=== PATIENT | female | born 1980 | race Caucasian/White ===

== ENCOUNTER → 2018-01-22 13:47 | Outpatient (CLI) | payer MEDICAID, SELFPAY ==
--- NOTE | 2018-01-22 13:53 | HPBI_ITS ---
MAMMOGRAPHY - BILATERAL SCREENING REASON FOR EXAM: Female, 37 years old. Routine annual screening examination. PERTINENT HISTORY: Grandmother with breast cancer. TECHNIQUE: Digital bilateral breast abe (3D mammographic acquisition) in the CC and MLO projections. 2-D mediolateral oblique (MLO) and craniocaudad (CC) views of both breasts were obtained. CAD: Full Field Digital Mammography with Computer Added Detection was performed. COMPARISON: None. Baseline examination. FINDINGS: Breast Composition: There are scattered areas of fibroglandular density. There are no dominant masses or suspicious calcifications. No other significant abnormalities are identified. HPBI/SCREENING MAMM (CAD), BILAT IMPRESSION: Negative screening mammogram. Yearly followup mammogram recommended. (A) ASSESSMENT CATEGORY: BIRADS Category 1: Negative. A letter regarding these results will be sent to the patient by the facility within 30 days. Approximately 10% of breast cancers are not detected by mammography. A normal mammogram should not delay biopsy of a clinically suspicious abnormality. [id number] Electronically Signed: Azam Tamez MD at 8:18 EDT Tel [phone], Service support ,
== END ==
PROVIDERS: Family Provider Family Medicine; PCP Family Medicine
DX: Z12.31 Encounter for screening mammogram for malignant neoplasm of breast (principal)
CPT/HCPCS: 77063; 77067

== ENCOUNTER 2018-03-05 22:32 | Observation (INO) | payer MEDICAID, SELFPAY ==
[2018-03-05 22:33] VITALS: BP 134/73; PULSE 84; RESP 17; TEMP 35.8; O2SAT 98; BMI 45.2
--- NOTE | 2018-03-05 22:38 | NURSING ---
SAMPLE BODY BUILDER CALLED FOR EKG, PULLED OLD EKG'S FOR
--- NOTE | 2018-03-05 22:39 | EKG12_ITS ---
Test Reason : CP Blood Pressure : / mmHG Vent. Rate : 084 BPM Atrial Rate : 084 BPM P-R Int : 152 ms QRS Dur : 100 ms QT Int : 388 ms P-R-T Axes : 014 -12 012 degrees QTc Int : 458 ms Normal sinus rhythm Confirmed by MARY SALINAS, DHEERAJ ([id number]), assignment desk editor USHA DESAI ([id number]) on 03/08/2018 12:48:50 PM Referred By: LIBSETH Confirmed By:DHEERAJ HERNANDEZ MD
--- NOTE | 2018-03-05 22:50 | RAD_ITS ---
STUDY: X-RAY CHEST REASON FOR EXAM: Female, 37 years old. Chest pain TECHNIQUE: Single AP portable view of the chest. COMPARISON: 09/04/2016. FINDINGS: The lungs are clear and expanded. There is no demonstrated pleural abnormality. Normal size heart. Normal mediastinum and macey. Normal visualized pulmonary arteries. Normal visualized aortic arch and descending thoracic aorta. Normal visualized thoracic spine. Normal visualized ribs, clavicles, and shoulders. There is no demonstrated abnormality of the visualized soft tissue structures of the upper abdomen. RAD/Chest 1 View (Portable) IMPRESSION: No acute cardiopulmonary disease. Electronically Signed: Harpal Chan DO at 23:31 EDT , Service support ,
--- NOTE | 2018-03-05 22:57 | ED.DCSUM_ITS ---
- ER Visit Summary Date of Service: 03/05/18 Chief Complaint: Chest pain History of Present Illness: The patient is a 37 F with history of hypertension and hyperlipidemia along with rlx-lycxebs-dnxixpqch diabetes presents with left- sided chest pain. Patient had recent breast reduction surgery at [facility]. This was done 3 weeks ago. Apparently, during the surgery, she had low blood pressure. After that, she had elevation of her cardiac enzymes. She is scheduled for an outpatient stress test. During that whole time, she had no significant chest pain. Tonight, she was watching TV, and she had a rather sudden onset squeezing across her left chest. It went to her neck and arm. She did not feel short of breath. She denies any fevers or chills. The pain does wax and wane. She states she has never really had pain like this before. She denies any pleuritic pain. She denies any dyspnea. Patient has had a stress test a few years ago, and states it was normal. She has no documented history of coronary vascular disease. Physical Examination: Vital signs reviewed General: Well-nourished, well-developed Head: Normocephalic, atraumatic Eyes: Pupils equal and reactive, extraocular muscles intact Neck, supple, no lymphadenopathy Heart: Regular rate and rhythm Respiratory: No distress, clear bilaterally Chest wall: Incisions are clean, dry, and intact. There is minimal erythema. There is no edema or cellulitis. Abdomen: Soft, nontender, nondistended, no peritoneal signs Back: Nontender Extremities: Nontender, no edema, no cords Skin: Normal color no rash Neuro: Alert and oriented, no focal or lateralizing deficits Test Results: [] Emergency Department Course and Treatment: The patient presents with chest pain. She did have recent bilateral breast reduction. When she was there, she did have elevated cardiac enzymes and was scheduled for an outpatient stress. Tonight, was the first time that she has had pain. Her incisions are clean, dry , and intact. Her EKG is unremarkable for acute ischemic change. Cardiac enzymes are normal. Pain was improved with fentanyl but then did return. The patient did have an elevated d-dimer and underwent CTA. I do not see definitive evidence of pulmonary embolus. With the patient's recent elevated cardiac enzymes, known cardiac risk factor, and intermittent pain I do feel that she will benefit from admission for cardiac risk stratification. Patient was discussed with the hospitalist. Treatment Plan: [] Disposition: Admission Impression: 1. Chest pain This note was generated with [employer] dictation software. It may contain incorrect words, spelling, and punctuation that were not noted in review of the chart prior to signing ED Disposition - Plan for ED Patient: Chief Complaint: Chest Pain Referrals: Francesco Davila MD [Primary Care Provider] -
[2018-03-05 23:18] LABS: Mean Platelet Vol. 11.2 fl (6.2-12.0)
[2018-03-05] MEDS: Aspirin 81 MG TAB.CHEW 324 MG PO (23:30)
[2018-03-05 23:39] LABS: D-Dimer Quantitative (DVT/PE) 1.06 FEU/ug/m (0.27-0.49)
--- NOTE | 2018-03-05 23:39 | ED.RN ---
LAB CALLED WITH CRITICAL LAB RESULTS. D DIMER .06. DR. BOB MADE AWARE.
[2018-03-05 23:44] VITALS: PULSE 77; RESP 12; O2SAT 97
[2018-03-05 23:44] LABS: Anion Gap 8 (5-15); BUN 10 mg/dL (7-18); BUN/Creat Ratio 12.1 RATIO (10-20); Calcium,Total 9.1 mg/dL (8.5-10.1); Chloride 100 mmol/L (98-107); Creatinine, Serum 0.82 mg/dL (0.55-1.02); EST Glomerular Filtration Rate 84 mL/min (>60); Est Glom Filt Rate - Afr Amer 101 mL/min (>60); Estimated Creatinine Clearance 100.07 ml/min; Glucose 216 mg/dL (74-106); Hematocrit 40.2 % (37-47); Hemoglobin 13.2 g/dl (12.0-15.0); Mean Corpuscular Volume 89.5 fL (81-99); POSITIVE COUNT NO; POSITIVE DIFFERENTIAL NO; POSITIVE MORPHOLOGY NO; Potassium 3.4 mmol/L (3.5-5.1); Red Blood Count 4.49 M/mm3 (4.2-5.4); Sodium Level 136 mmol/L (136-145); White Blood Count 11.2 K/mm3 (4.4-11.0)
[2018-03-05 23:45] LABS: Absolute Neutrophil Count 5.5 X10^3/uL (2.0-7.7); Basophil# 0.08 X10^3/uL; Basophil% 0.7 % (0-1); Eosinophil# 0.34 X10^3/uL; Lymphocyte % 41.1 % (19-41); Mean Corp Hgb Conc 32.8 g/gl (32-36); Mean Corpuscular Hgb 29.4 pg (27.0-32.0); Monocyte# 0.62 X10^3/uL; Monocyte% 5.5 % (0-10); Neutrophil # 5.49 X10^3/uL (2.7-7.7); Neutrophil % 49.2 % (47-70); Platelet Count 333 K/mm3 (150-450); RBC Distribution Width CV 12.9 % (11.6-14.6); RBC Distribution Width SD 41.1 fl (35.1-43.9)
[2018-03-05] MEDS: fentaNYL 100 MCG/2 ML Ampul 50 MCG IV (23:47)
[2018-03-05] MEDS: Ondansetron 4 MG/2 ML Vial IV (23:47)
[2018-03-06] VITALS (9 sets, daily range): BP systolic 103–119; BP diastolic 59–84; PULSE 75–91; RESP 14–22; TEMP 36.5–36.8; O2SAT 95–99; BMI 44.9
--- NOTE | 2018-03-06 00:33 | EKG12_ITS ---
Test Reason : REPEAT Blood Pressure : / mmHG Vent. Rate : 072 BPM Atrial Rate : 072 BPM P-R Int : 168 ms QRS Dur : 102 ms QT Int : 404 ms P-R-T Axes : 016 -15 -03 degrees QTc Int : 442 ms Normal sinus rhythm Leftward axis Poor R wave progression Confirmed by MARY SALINAS, DHEERAJ ([id number]), index editor USHA DESAI ([id number]) on 03/08/2018 12:49:44 PM Referred By: LISBETH Confirmed By:DHEERAJ HERNANDEZ MD
[2018-03-06] MEDS: Morphine 4 MG/ML Syringe IV (00:44)
--- NOTE | 2018-03-06 01:41 | PCM.HP.STD ---
Problem List (1) Diabetes Status: Chronic (2) Pulmonary hypertension Status: Chronic (3) MVP Status: Chronic (4) Hypertension Status: Chronic (5) Hyperlipidemia Status: Chronic (6) Asthma Status: Chronic (7) Chest pain Status: Acute Qualifiers: Chest pain type: unspecified Qualified Code(s): R07.9 - Chest pain, unspecified History of Present Illness Date of Admission: 03/06/18 Chief Complaint: chest pain The patient is a 37 year old female patient who presents to the ER with acute chest pain. She has a recent history of breast reduction surgery done at [place] a few weeks ago and she had an episode of hypotension perioperatively. She has a strong family history of CAD with a father diagnosed in his 20s with CAD. She is also an uncontrolled diabetic and overweight. The patient has been diagnosed in 2013 with pulmonary hypertension and had a negative heart cath four years ago. Her initial troponin was negative but she did get relief of her chest pain that radiated down her left arm and up her left neck after taking nitroglycerin. The onset of her pain was unprovoked while watching TV. She does have post operative pain as well but this she describes as distinctly different. She will be admitted for further cardiac workup. Past Medical History Past Medical History (Chronic Problems): Chronic Problems Diabetes (Chronic) Pulmonary hypertension (Chronic) MVP (Chronic) Hypertension (Chronic) Hyperlipidemia (Chronic) Asthma (Chronic) Allergies adhesive Allergy (Verified 03/05/18 22:32) Other PAPER TAPE ERODES SKIN ketorolac tromethamine [From Toradol] Allergy (Verified 03/05/18 22:32) Shortness of breath naproxen sodium [From Aleve] Allergy (Verified 03/05/18 22:32) Shortness of breath Penicillins Allergy (Verified 03/05/18 22:32) Rash Home Medications: Ambulatory Orders Medication Instructions Recorded Albuterol Inhaler [Ventolin Hfa] 1 - 2 puff INHALATION Q6H PRN PRN 10/04/13 Nadolol [Corgard (Beta Jazz)] 40 mg PO BID 02/17/15 Furosemide [Lasix] 40 mg PO DAILY PRN 06/07/15 Spironolactone [Aldactone] 50 mg PO DAILY PRN 07/30/15 Lorazepam [Ativan] 1 mg PO DAILY PRN PRN 10/23/16 Metformin(XR) [Glucophage Xr] 1,000 mg PO BID 09/04/16 Pioglitazone [Actos] 15 mg PO DAILY 09/04/16 busPIRone [Buspar] 15 mg PO TID 09/04/16 Omeprazole [Prilosec] 20 mg PO PRN PRN 01/17/17 buPROPion tablets [Wellbutrin] 75 mg PO BID 01/17/17 Ondansetron [Zofran] 8 mg PO Q8H PRN PRN #20 tablet 01/18/17 Zolpidem Tartrate [Ambien 5 mg PO QHS PRN PRN #14 tablet 01/18/17 (Generic)] Surgical History: - - Lipid cystectomy, appendectomy Smoking Status: Former smoker - *Family History Maternal History Items: No pertinent history Paternal History Items: Heart Disease Review of Systems Constitutional: Denies: Chills, Fever, Weight Change HEENT: Denies: Head Aches, Sinus Congestion, Sinus Drainage Cardiovascular: Reports: Chest Pain. Denies: Palpitations Respiratory: Denies: Cough, Shortness of breath at rest, Sputum production Gastrointestinal: Denies: Abdominal Pain, Nausea, Vomiting Genitourinary: Denies: Dysuria Musculoskeletal: Denies: Joint Pain, Joint Tenderness Skin: Denies: Rash, Wounds Neurological: Denies: Numbness, Tingling, Focal weakness Psychiatric: Denies: Anxiety, Depression, Homicidal Ideations, Suicidal Ideations Hematologic/ Lymphatic: Denies: Easy Bruising, Easy Bleeding VTE Information - Inpt Only VTE Present on Admission: No VTE Mechan Device Prophylaxis: None VTE Pharm Prophylaxis ordered?: Yes Patient Problems: Active and Suspected Problems Chest pain (Acute) - Physical Exam General: Alert, Oriented x3, Cooperative HEENT: Atraumatic, Normocephalic Neck: Supple, No JVD, Negative Carotid Bruits Lungs: Clear to auscultation, Normal air movement Cardiovascular: Regular rate, Normal S1, Normal S2, No murmurs Abdomen: Bowel Sounds Present, Soft, Non Tender, Obese Extremities: No edema, Capillary Refill Less than 3 Seconds Skin: No rashes, No breakdown Musculoskeletal: No Tenderness to Palpation of Joints or Extremities Neurological: Neuro grossly intact Psych/Mental Status: Normal Affect, Appropriate Vital Signs Temp Pulse Resp BP Pulse Ox 96.5 F L 77 14 103/84 H 97 03/05/18 22:33 03/06/18 01:32 03/06/18 01:32 03/06/18 01:32 03/06/18 01:32 Oxygen Flow Rate (L/min) 2 Oxygen Delivery Method Nasal Cannula Weight: 306 lb 3.553 oz Body Mass Index (BMI) 45.2 Finger Stick Blood Glucose 213 Laboratory Tests Past 24 Hrs 03/05/18 03/05/18 03/05/18 23:00 23:00 23:00 WBC 11.2 H RBC 4.49 Hgb 13.2 Hct 40.2 MCV 89.5 MCH 29.4 MCHC 32.8 RDW 12.9 RDW Differential 41.1 Plt Count 333 MPV 11.2 Immature Gran % (Auto) 0.500 Neut % (Auto) 49.2 Lymph % (Auto) 41.1 H [place] % (Auto) 5.5 Eos % (Auto) 3.0 Baso % (Auto) 0.7 Absolute Neuts (auto) 5.5 Absolute Lymphs (auto) 4.60 H Total Counted Not Reportable D-Dimer Quant (PE/DVT) 1.06 H* Sodium 136 Potassium 3.4 L Chloride 100 Carbon Dioxide 28.0 Anion Gap 8 BUN 10 Creatinine 0.82 Estim Creat Clear Calc 100.07 Est GFR (MDRD) Af Amer 101 Est GFR (MDRD) Non-Af 84 BUN/Creatinine Ratio 12.1 Glucose 216 H Calcium 9.1 Troponin I < 0.02 Assessment/Plan Active and Suspected Problems Chest pain (Acute) Chronic Problems Pulmonary hypertension (Chronic) MVP (Chronic) Hypertension (Chronic) Hyperlipidemia (Chronic) Asthma (Chronic) Plan -admit for observation to PCU -cycle cardiac enzymes - morphine, oxygen, nitro and aspirin per routine - nuclear exercise stress test in am - continue routine home medications for stable medical conditions- hold betablocker - LMWH for DVT prophylaxis - bmp in am Code Visit OBSV E&M: 21556 Initial observation care L2
[2018-03-06] MEDS: 0.9% NaCl Peripheral Flush Adult/Peds IV ×3 (03:24→11:38)
[2018-03-06] MEDS: Morphine 2 MG/ML Syringe IV ×3 (03:25→11:37)
--- NOTE | 2018-03-06 04:22 | EKG12_ITS ---
Test Reason : AM EKG Blood Pressure : / mmHG Vent. Rate : 078 BPM Atrial Rate : 078 BPM P-R Int : 178 ms QRS Dur : 090 ms QT Int : 394 ms P-R-T Axes : 020 -15 -04 degrees QTc Int : 449 ms Normal sinus rhythm Leftward axis Incomplete right bundle branch block Confirmed by MARY SALINAS, DHEERAJ ([id number]), newspaper editor managing USHA DESAI ([id number]) on 03/08/2018 1:22:37 PM Referred By: ANU Confirmed By:DHEERAJ HERNANDEZ MD
[2018-03-06] MEDS: Aspirin E.C. 325 MG Tablet PO (05:08)
[2018-03-06 06:55] LABS: Bedside Glucose 178 mg/dL (70-110)
[2018-03-06 07:32] LABS: Absolute Lymphocyte Count 4.42 X10^3/ul (0.83-4.51); Absolute Neutrophil Count 6.2 X10^3/uL (2.0-7.7); Basophil# 0.05 X10^3/uL; Basophil% 0.4 % (0-1); Eosinophil# 0.36 X10^3/uL; Hematocrit 41.1 % (37-47); Hemoglobin 13.3 g/dl (12.0-15.0); Lymphocyte # 4.42 X10^3/ul (4.0); Lymphocyte % 37.3 % (19-41); Mean Corp Hgb Conc 32.4 g/gl (32-36); Mean Corpuscular Hgb 29.2 pg (27.0-32.0); Mean Corpuscular Volume 90.1 fL (81-99); Mean Platelet Vol. 11.1 fl (6.2-12.0); Monocyte# 0.76 X10^3/uL; Monocyte% 6.4 % (0-10); Neutrophil # 6.21 X10^3/uL (2.7-7.7); Neutrophil % 52.6 % (47-70); POSITIVE COUNT NO; POSITIVE DIFFERENTIAL NO; POSITIVE MORPHOLOGY NO; Platelet Count 315 K/mm3 (150-450); RBC Distribution Width CV 13.1 % (11.6-14.6); Red Blood Count 4.56 M/mm3 (4.2-5.4); White Blood Count 11.8 K/mm3 (4.4-11.0)
[2018-03-06 07:36] LABS: Partial Thromboplast Time 28.6 Seconds (24.1-36.2)
[2018-03-06 07:54] LABS: ALB/GLOB Ratio 0.7 RATIO (0.9-2.4); AST(SGOT) 62 U/L (15-37); Alanine Aminotransfer ALT/SGPT 49 U/L (13-56); Albumin, Serum 3.5 g/dL (3.2-5.0); Alkaline Phosphatase 79 U/L (45-117); Anion Gap 10 (5-15); BUN 10 mg/dL (7-18); BUN/Creat Ratio 10.5 RATIO (10-20); Calcium,Total 9.1 mg/dL (8.5-10.1); Chloride 100 mmol/L (98-107); Cholesterol 128 mg/dL (200); Creatinine, Serum 0.95 mg/dL (0.55-1.02); EST Glomerular Filtration Rate 71 mL/min (>60); Est Glom Filt Rate - Afr Amer 86 mL/min (>60); Estimated Creatinine Clearance 86.38 ml/min; Globulin 4.7 g/dL (2.2-4.2); Glucose 166 mg/dL (74-106); High Density Lipoprotein 28 mg/dL; Potassium 4.1 mmol/L (3.5-5.1); Protein, Total 8.2 g/dL (6.4-8.2); Sodium Level 137 mmol/L (136-145); Triglycerides 330 mg/dL; Very Low Density Lipoprotein 66 mg/dL (5-40)
[2018-03-06 07:56] LABS: International Normalized Ratio 1.1; Prothrombin Time (Protime)PT. 14.1 SECONDS (11.7-14.9)
[2018-03-06] MEDS: Furosemide 40 MG Tablet PO (11:22)
[2018-03-06] MEDS: Spironolactone 50 MG Tablet PO (11:23)
[2018-03-06] MEDS: Enoxaparin 40 MG/0.4 ML Syringe SC (11:23)
[2018-03-06] MEDS: buPROPion 100 MG Tablet PO (11:24)
[2018-03-06] MEDS: LINAGLIPTIN 5 MG TABLET PO (11:24)
--- NOTE | 2018-03-06 11:30 | STRESSREP ---
Stress Test Report Date: 03/06/2018 Procedure: Exercise tolerance test/imaging study Indications: Chest pain Consent: Per the patient Procedure: The patient exercised on a Bon protocol for 6 minutes and 45 seconds completing Stage 2 and 45 seconds of Stage III achieving a peak heart rate of 169 bpm (91 % predicted maximal heart rate) with a peak blood pressure 158/88 mmHg and a peak MET capacity of 8 METs. The baseline ECG demonstrated normal sinus rhythm. The peak exercise ECG demonstrated somatic/motion artifact with no obvious ECG changes. There were no cardiac dysrhythmias pretest, during exercise, or recovery. The functional capacity was considered average. There was no complaint of chest discomfort during exercise or recovery. The examination was discontinued secondary to dyspnea and fatigue. Impression: 1. Technically adequate (percent predicted maximal heart rate greater than 85%) exercise tolerance test 2. Peak exercise ECG with somatic/motion artifact with no obvious ECG changes 3. There were no cardiac dysrhythmias pretest, during exercise, or recovery. 4. Nuclear images pending Myocardial perfusion imaging study: Technique: The patient was injected with 15 mCi of technetium 99m Cardiolite and subsequently rest SPECT Cardiolite nuclear imaging was obtained in the horizontal long, vertical long, and short axis views. The patient exercised on a Bon protocol for 6 minutes and 45 seconds completing Stage 2 and 45 seconds of Stage III achieving a peak heart rate of 169 bpm (91 % predicted maximal heart rate) with a peak blood pressure 158/88 mmHg and a peak MET capacity of 8 METs. The patient was injected with 44 mCi of technetium 99m Cardiolite and subsequently stress SPECT Cardiolite nuclear imaging was obtained in the horizontal long, vertical long, and short axis views. A gated Cardiolite study at peak stress was obtained. Interpretation: Rest and stress SPECT Cardiolite nuclear imaging status post realignment, normalization, and attenuation correction, demonstrates the appearance of relative uniform tracer uptake and myocardial perfusion appearing within normal limits. There is end systolic thickening and brightening. The gated Cardiolite study demonstrates myocardial thickening and inward wall motion. The reported LVEF is 70 %. Impression: 1. Rest and stress SPECT Cardiolite nuclear imaging demonstrate relative uniform tracer uptake and myocardial perfusion appearing within normal limits. 2. The gated Cardiolite study reports an LVEF of 70 %. This note was generated with [employer] software. It may contain incorrect words, spelling, and punctuation that were not noted in checking the note before signing.
--- NOTE | 2018-03-06 11:36 | STRESSREP_ITS ---
Stress Test Report Date: 03/06/2018 Procedure: Exercise tolerance test/imaging study Indications: Chest pain Consent: Per the patient Procedure: The patient exercised on a Bon protocol for 6 minutes and 45 seconds completing Stage 2 and 45 seconds of Stage III achieving a peak heart rate of 169 bpm (91 % predicted maximal heart rate) with a peak blood pressure 158/88 mmHg and a peak MET capacity of 8 METs. The baseline ECG demonstrated normal sinus rhythm. The peak exercise ECG demonstrated somatic/motion artifact with no obvious ECG changes. There were no cardiac dysrhythmias pretest, during exercise, or recovery. The functional capacity was considered average. There was no complaint of chest discomfort during exercise or recovery. The examination was discontinued secondary to dyspnea and fatigue. Impression: 1. Technically adequate (percent predicted maximal heart rate greater than 85% ) exercise tolerance test 2. Peak exercise ECG with somatic/motion artifact with no obvious ECG changes 3. There were no cardiac dysrhythmias pretest, during exercise, or recovery. 4. Nuclear images pending Myocardial perfusion imaging study: Technique: The patient was injected with 15 mCi of technetium 99m Cardiolite and subsequently rest SPECT Cardiolite nuclear imaging was obtained in the horizontal long, vertical long, and short axis views. The patient exercised on a Bon protocol for 6 minutes and 45 seconds completing Stage 2 and 45 seconds of Stage III achieving a peak heart rate of 169 bpm (91 % predicted maximal heart rate) with a peak blood pressure 158/88 mmHg and a peak MET capacity of 8 METs. The patient was injected with 44 mCi of technetium 99m Cardiolite and subsequently stress SPECT Cardiolite nuclear imaging was obtained in the horizontal long, vertical long, and short axis views. A gated Cardiolite study at peak stress was obtained. Interpretation: Rest and stress SPECT Cardiolite nuclear imaging status post realignment, normalization, and attenuation correction, demonstrates the appearance of relative uniform tracer uptake and myocardial perfusion appearing within normal limits. There is end systolic thickening and brightening. The gated Cardiolite study demonstrates myocardial thickening and inward wall motion. The reported LVEF is 70 %. Impression: 1. Rest and stress SPECT Cardiolite nuclear imaging demonstrate relative uniform tracer uptake and myocardial perfusion appearing within normal limits. 2. The gated Cardiolite study reports an LVEF of 70 %. This note was generated with [employer] software. It may contain incorrect words, spelling, and punctuation that were not noted in checking the note before signing.
[2018-03-06] MEDS: LORazepam 1 MG Tablet PO (11:38)
[2018-03-06 11:50] LABS: Bedside Glucose 211 mg/dL (70-110)
--- NOTE | 2018-03-06 11:53 | PCM.DC ---
- Discharge Diagnoses Current Active Problems: Current Active and Chronic Problems Diabetes (Chronic) Chest pain (Acute) You will use the following diet at home:: Calorie/Carbohydrate Controlled (specify 1200, 1400, etc) - 1800 codie / day, Cardiac Your food should be the consistency of: Regular Your liquids should be the consistency of: Regular/Thin Discharge Activity: Return to Normal Activity Allergies/Adverse Reactions: Allergies adhesive Allergy (Verified 03/05/18 22:32) Other PAPER TAPE ERODES SKIN ketorolac tromethamine [From Toradol] Allergy (Verified 03/05/18 22:32) Shortness of breath naproxen sodium [From Aleve] Allergy (Verified 03/05/18 22:32) Shortness of breath Penicillins Allergy (Verified 03/05/18 22:32) Rash Medications to take at Discharge Albuterol Inhaler [Ventolin Hfa] 1 - 2 puff INHALATION Q6H PRN PRN 10/04/13 Nadolol [Corgard (Beta Jazz)] 40 mg PO BID 02/17/15 Furosemide [Lasix] 40 mg PO DAILY 06/07/15 Spironolactone [Aldactone] 50 mg PO DAILY 07/30/15 Lorazepam [Ativan] 1 mg PO DAILY PRN PRN 09/04/16 Metformin(XR) [Glucophage Xr] 1,000 mg PO BID 09/04/16 buPROPion tablets [Wellbutrin tablets] 100 mg PO BID 01/17/17 Alogliptin Benzoate [Alogliptin] 25 mg PO DAILY 03/06/18 [place] 5-325 Tablet 03/06/18 Primary Care Physician: Francesco Davila MD [Primary Care Provider] - Please follow up with your Primary Care Physician in: 1-2 weeks Please Follow Up With: [facility] When: 1-2 weeks Please Follow Up With: Your Surgeon When: As directed Proposed Discharge Date: 03/06/18
--- NOTE | 2018-03-06 16:38 | PCM.DC.SUM ---
<David Dubon - Last Filed: 03/06/18 16:38> Discharge Date and Diagnosis Date of Admission: 03/06/18 Date of Discharge: 03/06/18 - Primary Discharge Diagnosis Chest pain-musculoskeletal Diabetes Morbid obesity Mitral valve prolapse Hypertension Hyperlipidemia Asthma - Secondary Discharge Diagnosis Chronic Problems Diabetes (Chronic) Pulmonary hypertension (Chronic) MVP (Chronic) Hypertension (Chronic) Hyperlipidemia (Chronic) Asthma (Chronic) Hospital Course and Treatment Imaging Results: CT/CTA Chest W/WO Contrast IMPRESSION: Normal CTA chest examination, without a demonstrated pulmonary embolism or arterial dissection. Stress test: Impression: 1. Technically adequate (percent predicted maximal heart rate greater than 85%) exercise tolerance test 2. Peak exercise ECG with somatic/motion artifact with no obvious ECG changes 3. There were no cardiac dysrhythmias pretest, during exercise, or recovery. 4. Nuclear images pending RAD/Chest 1 View (Portable) IMPRESSION: No acute cardiopulmonary disease. Operations: None Procedures: Stress test Summary of Care Provided: Physical exam on day of discharge: General: Resting comfortably NAD Psych: A/Ox3 normal affect HEENT: PEARRLA AT NC Neck: Supple NT CV: RRR no m/t/r/g/h chest is tender to light palpation anteriorly bilaterally. Resp: CTA Abd: [id number] Soft NT no guarding or rigidity Ext: DP2+= no edema Skin: W/D normal turgor Lymph/Heme: No active bleeding or adenopathy Neuro: CN2-12 intact Hospital course: The patient is a 37 year old F with a history of mitral valve prolapse, hypertension, hyperlipidemia, recent breast reduction surgery at [facility] about 2 weeks ago who presented to the emergency room with chest pain. She reported that she had a troponin elevation and low blood pressure after her surgery and was supposed to have an outpatient stress test however she developed chest pain so she presented to the emergency room for evaluation. She had a negative troponin negative EKG, elevated d-dimer with a negative CTA, negative chest x-ray. She described as an anterior chest wall tenderness that was worse with palpation. She underwent a stress test the following day which was negative. Her telemetry was negative a repeat EKG was also negative, and her troponins remained negative. Her pain was felt to be of musculoskeletal origin likely secondary to her recent surgery. There are no changes made at this time and she was discharged home in stable condition. I advised her to follow-up with her surgeon, with her extension educator that she saw at [facility], and with her primary care physician. This patient was seen by David Dubon PA-C under the supervision of Doctor Maral. [] Discharge Diet: Low fat/ Low Cholesterol, 1800 Calorie Control Diet, 2000 mg Sodium Diet Discharge Activity: Return to Normal Activity Home Medications: Medications to take at Discharge Albuterol Inhaler [Ventolin Hfa] 1 - 2 puff INHALATION Q6H PRN PRN 10/04/13 Nadolol [Corgard (Beta Jazz)] 40 mg PO BID 02/17/15 Furosemide [Lasix] 40 mg PO DAILY 06/07/15 Spironolactone [Aldactone] 50 mg PO DAILY 07/30/15 Lorazepam [Ativan] 1 mg PO DAILY PRN PRN 09/04/16 Metformin(XR) [Glucophage Xr] 1,000 mg PO BID 09/04/16 buPROPion tablets [Wellbutrin tablets] 100 mg PO BID 01/17/17 Alogliptin Benzoate [Alogliptin] 25 mg PO DAILY 03/06/18 [place] 5-325 Tablet 03/06/18 Primary Care Physician: Francesco Davila MD [Primary Care Provider] - Please follow up with your Primary Care Physician in: 1-2 weeks Please Follow Up With: [facility] When: 1-2 weeks Please Follow Up With: Your Surgeon When: As directed Disposition: Home Minutes spent on discharge:: 35 Patient Condition:: Stable Medical Necessity - Tobacco Use Smoking Status: Former smoker Meaningful Use Info Meaningful Use Diagnoses (Choose all that apply): None applicable <Jimi Alicia - Last Filed: 03/06/18 16:52> Discharge Date and Diagnosis - Secondary Discharge Diagnosis Chronic Problems Diabetes (Chronic) Pulmonary hypertension (Chronic) MVP (Chronic) Hypertension (Chronic) Hyperlipidemia (Chronic) Asthma (Chronic) Hospital Course and Treatment Summary of Care Provided: The patient is a 37 year old F with past medical history significant for morbid obesity with BMI of 44.9 with recent breast reduction surgery 2 weeks prior to admission who presented with chest pain. Patient was found to have elevated d-dimer underwent CTA of the chest which is negative for PE subsequently placed in a monitored bed did rule out VA with serial cardiac enzymes subsequently underwent a nuclear stress test which is negative for stress-induced ischemia Patient was seen and examined on the day of discharge. Was also discussed with David larios with his documentation above view patient home going instructions as well as discharge medications. Time spent on discharge; 45 minutes. Code Visit OBSV E&M: 69911 Observation care discharge
--- NOTE | 2018-03-06 16:42 | DS.PCM_ITS ---
<David Dubon - Last Filed: 03/06/18 16:38> Discharge Date and Diagnosis Date of Admission: 03/06/18 Date of Discharge: 03/06/18 - Primary Discharge Diagnosis Chest pain-musculoskeletal Diabetes Morbid obesity Mitral valve prolapse Hypertension Hyperlipidemia Asthma - Secondary Discharge Diagnosis Chronic Problems Diabetes (Chronic) Pulmonary hypertension (Chronic) MVP (Chronic) Hypertension (Chronic) Hyperlipidemia (Chronic) Asthma (Chronic) Hospital Course and Treatment Imaging Results: CT/CTA Chest W/WO Contrast IMPRESSION: Normal CTA chest examination, without a demonstrated pulmonary embolism or arterial dissection. Stress test: Impression: 1. Technically adequate (percent predicted maximal heart rate greater than 85% ) exercise tolerance test 2. Peak exercise ECG with somatic/motion artifact with no obvious ECG changes 3. There were no cardiac dysrhythmias pretest, during exercise, or recovery. 4. Nuclear images pending RAD/Chest 1 View (Portable) IMPRESSION: No acute cardiopulmonary disease. Operations: None Procedures: Stress test Summary of Care Provided: Physical exam on day of discharge: General: Resting comfortably NAD Psych: A/Ox3 normal affect HEENT: PEARRLA AT NC Neck: Supple NT CV: RRR no m/t/r/g/h chest is tender to light palpation anteriorly bilaterally. Resp: CTA Abd: [id number] Soft NT no guarding or rigidity Ext: DP2+= no edema Skin: W/D normal turgor Lymph/Heme: No active bleeding or adenopathy Neuro: CN2-12 intact Hospital course: The patient is a 37 year old F with a history of mitral valve prolapse, hypertension, hyperlipidemia, recent breast reduction surgery at [facility] about 2 weeks ago who presented to the emergency room with chest pain. She reported that she had a troponin elevation and low blood pressure after her surgery and was supposed to have an outpatient stress test however she developed chest pain so she presented to the emergency room for evaluation. She had a negative troponin negative EKG, elevated d-dimer with a negative CTA, negative chest x-ray. She described as an anterior chest wall tenderness that was worse with palpation. She underwent a stress test the following day which was negative. Her telemetry was negative a repeat EKG was also negative, and her troponins remained negative. Her pain was felt to be of musculoskeletal origin likely secondary to her recent surgery. There are no changes made at this time and she was discharged home in stable condition. I advised her to follow-up with her surgeon, with her potato bucker that she saw at [facility], and with her primary care physician. This patient was seen by David Dubon PA-C under the supervision of Doctor Maral. [] Discharge Diet: Low fat/ Low Cholesterol, 1800 Calorie Control Diet, 2000 mg Sodium Diet Discharge Activity: Return to Normal Activity Home Medications: Medications to take at Discharge Albuterol Inhaler [Ventolin Hfa] 1 - 2 puff INHALATION Q6H PRN PRN 10/04/13 Nadolol [Corgard (Beta Jazz)] 40 mg PO BID 02/17/15 Furosemide [Lasix] 40 mg PO DAILY 06/07/15 Spironolactone [Aldactone] 50 mg PO DAILY 07/30/15 Lorazepam [Ativan] 1 mg PO DAILY PRN PRN 09/04/16 Metformin(XR) [Glucophage Xr] 1,000 mg PO BID 09/04/16 buPROPion tablets [Wellbutrin tablets] 100 mg PO BID 01/17/17 Alogliptin Benzoate [Alogliptin] 25 mg PO DAILY 03/06/18 [place] 5-325 Tablet 03/06/18 Primary Care Physician: Francesco Davila MD [Primary Care Provider] - Please follow up with your Primary Care Physician in: 1-2 weeks Please Follow Up With: [facility] When: 1-2 weeks Please Follow Up With: Your Surgeon When: As directed Disposition: Home Minutes spent on discharge:: 35 Patient Condition:: Stable Medical Necessity - Tobacco Use Smoking Status: Former smoker Meaningful Use Info Meaningful Use Diagnoses (Choose all that apply): None applicable <Jimi Alicia - Last Filed: 03/06/18 16:52> Discharge Date and Diagnosis - Secondary Discharge Diagnosis Chronic Problems Diabetes (Chronic) Pulmonary hypertension (Chronic) MVP (Chronic) Hypertension (Chronic) Hyperlipidemia (Chronic) Asthma (Chronic) Hospital Course and Treatment Summary of Care Provided: The patient is a 37 year old F with past medical history significant for morbid obesity with BMI of 44.9 with recent breast reduction surgery 2 weeks prior to admission who presented with chest pain. Patient was found to have elevated d- dimer underwent CTA of the chest which is negative for PE subsequently placed in a monitored bed did rule out SC with serial cardiac enzymes subsequently underwent a nuclear stress test which is negative for stress-induced ischemia Patient was seen and examined on the day of discharge. Was also discussed with David larios with his documentation above view patient home going instructions as well as discharge medications. Time spent on discharge; 45 minutes. Code Visit OBSV E&M: 33834 Observation care discharge
--- NOTE | 2018-03-06 23:39 | CT_ITS ---
STUDY: CTA CHEST REASON FOR EXAM: Female, 37 years old. Chest pain. Dizziness. RADIATION DOSAGE (If Supplied By Facility): CTDIvol = ( 22.54 ) mGy, DLP = ( 775.25 ) mGycm TECHNIQUE: The examination was performed with the intravenous administration of 100ML ml of Isovue 370 contrast material. Post-processing of the angiographic images was performed, with multiplanar reformation and 3D reconstruction. Individualized dose optimization techniques were used for this CT. COMPARISON: None. FINDINGS: Normal enhancement of the main pulmonary artery and right and left pulmonary arteries. Normal enhancement of the bilateral peripheral pulmonary arteries. There is no demonstrated pulmonary embolism. Normal thoracic aorta and visualized great vessels. There is no demonstrated aortic dissection. Normal heart and pericardium. Normal mediastinum. Normal hilar regions. Normal visualized trachea and bronchi. The lungs are well expanded. Normal pulmonary parenchyma. Normal pleura. Normal chest wall structures. Normal osseous structures. Normal visualized upper abdomen. CT/CTA Chest W/WO Contrast IMPRESSION: Normal CTA chest examination, without a demonstrated pulmonary embolism or arterial dissection. Electronically Signed: Cassi Marc MD at 1:11 EDT Tel , Service support ,
== END 2018-03-06 11:53 | disposition home or self-care (01) ==
LOC: ED 23:12 → PCU 03-06 02:04
PROVIDERS: Admitting Provider Family Medicine; Emergency Provider Emergency Medicine; Family Provider Family Medicine; PCP Family Medicine; Visit Provider Internal Medicine
DX: R07.89 Other chest pain (principal); E11.9 Type 2 diabetes mellitus without complications; I10 Essential (primary) hypertension; E78.5 Hyperlipidemia, unspecified; I27.20 Pulmonary hypertension, unspecified; J45.909 Unspecified asthma, uncomplicated; E11.65 Type 2 diabetes mellitus with hyperglycemia; Z79.899 Other long term (current) drug therapy; Z79.84 Long term (current) use of oral hypoglycemic drugs; Z87.891 Personal history of nicotine dependence; E66.01 Morbid (severe) obesity due to excess calories; Z68.41 Body mass index [BMI] 40.0-44.9, adult; Z71.3 Dietary counseling and surveillance
CPT/HCPCS: 36415; 71045; 71275; 78452; 80048; 80053; 80061; 82962; 84443; 84484; 85025; 85379; 85610; 85730; 93005; 93017; 96372; 96374; 96375; 96376; 99218; 99285; A9500; Q9967; A4216; G0378; J2405

== ENCOUNTER → 2018-07-05 13:25 | Outpatient (CLI) | payer MEDICAID, SELFPAY | PROVIDERS: Family Provider Family Medicine; PCP Family Medicine; Visit Provider Orthopaedic Surgery | DX: M17.11 Unilateral primary osteoarthritis, right knee (principal) | CPT/HCPCS: 73564 ==

== ENCOUNTER 2019-01-03 18:19 | Emergency (ER) | payer MEDICAID, SELFPAY ==
[2019-01-03 18:19] VITALS: BP 106/91; PULSE 94; RESP 18; TEMP 36.6; O2SAT 93; BMI 42.0
[2019-01-03 20:16] VITALS: BP 144/98; PULSE 90; RESP 16; O2SAT 96
[2019-01-03 20:21] LABS: Red Blood Cells-Urine 0 SEEN /hpf (0-5)
[2019-01-03 20:23] LABS: Color, Urine Yellow (Yellow); Glucose, Dipstick 250 mg/dl (Normal); Ketone-Dipstick 5 mg/dl (Negative); Leukocyte Esterase-Dipstick 100 /ul (Negative); Nitrite-Dipstick Negative (Negative); Occult Blood-Urine 10 /ul (Negative); Protein-Dipstick 100 mg/dl (Negative); Urine Bilirubin Dipstick Negative (Negative); Urine Clarity Sl. Cloudy (Clear); Urine Urobilinogen Normal (Normal)
[2019-01-03 20:31] LABS: White Blood Cells 0-5 SEEN /hpf (0-5)
[2019-01-03 20:32] LABS: Bacteria 1+ /hpf (None Seen); Hyaline Cast 10-25 SEEN /lpf (0-5); Squamous Epithelial Cells - UA 0-5 SEEN /hpf (5-10)
[2019-01-03 20:33] LABS: Mucous, Urine 1+ /hpf (<or=2+)
[2019-01-03 20:46] LABS: Absolute Lymphocyte Count 3.93 X10^3/ul (0.83-4.51); Absolute Neutrophil Count 6.1 X10^3/uL (2.0-7.7); Basophil# 0.04 X10^3/uL; Basophil% 0.4 % (0-1); Eosinophil# 0.09 X10^3/uL; Eosinophils% 0.8 % (0-5); Hematocrit 49.9 % (37-47); Hemoglobin 16.9 g/dl (12.0-15.0); Lymphocyte # 3.93 X10^3/ul (4.0); Lymphocyte % 35.6 % (19-41); Mean Corp Hgb Conc 33.9 g/gl (32-36); Mean Corpuscular Hgb 30.6 pg (27.0-32.0); Mean Corpuscular Volume 90.4 fL (81-99); Mean Platelet Vol. 12.3 fl (6.2-12.0); Monocyte# 0.86 X10^3/uL; Monocyte% 7.8 % (0-10); Neutrophil # 6.08 X10^3/uL (2.7-7.7); POSITIVE COUNT NO; POSITIVE DIFFERENTIAL NO; POSITIVE MORPHOLOGY NO; Platelet Count 266 K/mm3 (150-450); RBC Distribution Width CV 12.6 % (11.6-14.6); RBC Distribution Width SD 41.3 fl (35.1-43.9); Red Blood Count 5.52 M/mm3 (4.2-5.4)
[2019-01-03 20:49] LABS: Anion Gap 12 (5-15); BUN 13 mg/dL (7-18); BUN/Creat Ratio 14.7 RATIO (10-20); Calcium,Total 8.8 mg/dL (8.5-10.1); Chloride 89 mmol/L (98-107); Creatinine, Serum 0.88 mg/dL (0.55-1.02); EST Glomerular Filtration Rate 77 mL/min (>60); Est Glom Filt Rate - Afr Amer 93 mL/min (>60); Estimated Creatinine Clearance 92.36 ml/min; Glucose 353 mg/dL (74-106); Potassium 3.4 mmol/L (3.5-5.1); Sodium Level 133 mmol/L (136-145)
[2019-01-03 20:53] LABS: Pregnancy, Serum, hCG Quali. NEGATIVE Negative (0-9 Nonpreg)
--- NOTE | 2019-01-03 21:10 | ED.VISSUMM ---
- ER Visit Summary Date of Service: 01/03/19 Chief Complaint: Abdominal pain History of Present Illness: The patient is a 38 F who presents with abdominal pain that began yesterday. Patient describes the pain as sharp. Patient states pain is over the epigastric area. Patient states pain does radiate into her back. Patient admits to some nausea but denies any vomiting. Patient denies any diarrhea, melena, or hematochezia. Patient denies any dysuria or hematuria. Patient denies any fevers or chills. Physical Examination: Vital signs are stable. Patient is afebrile. Patient is in no acute distress. Oral mucosa is pink and moist. Neck is supple. Trachea is midline. There is no JVD noted. Heart was regular rate and rhythm. Lungs are clear and equal bilaterally. Abdomen is soft. Bowel sounds are normal. There is epigastric tenderness. There is no rebound or guarding noted. Cranial nerves II through XII are intact. There are no focal motor or sensory deficits noted. The remaining physical exam is within normal limits. Test Results: CBC was normal. Basic metabolic profile showed an elevated glucose of 353. Patient is diabetic. Sodium was 133, potassium was 3.4, and chloride was 89. Urinalysis does not show any evidence of urinary tract infection. Hepatic profile and lipase were obtained and were normal. Emergency Department Course and Treatment: Patient was given a prescription for Prilosec. Patient was instructed to follow-up with her primary care physician in 5-7 days. Patient understood and was agreeable with the plan. All questions were answered. Disposition: Discharge home Impression: Abdominal pain This note was generated with [employer] dictation software. It may contain incorrect words, spelling, and punctuation that were not noted in review of the chart prior to signing ED Disposition - Plan for ED Patient: Disposition: Home or Assisted Living Diagnosis: Epigastric abdominal pain Instructions: ED Abdominal Pain Unkn Cause Prescriptions: Omeprazole [Prilosec] 20 mg PO DAILY #30 cap Referrals: Francesco Davila MD [Primary Care Provider] -
[2019-01-03 21:30] LABS: AST(SGOT) 80 U/L (15-37); Alanine Aminotransfer ALT/SGPT 81 U/L (13-56); Albumin, Serum 3.7 g/dL (3.2-5.0); Alkaline Phosphatase 112 U/L (45-117); Bilirubin, Direct 0.09 mg/dL (0.00-0.30); Globulin 4.8 g/dL (2.2-4.2); Lipase 226 U/L (73-393); Protein, Total 8.5 g/dL (6.4-8.2)
[2019-01-03 23:09] VITALS: RESP 16
--- NOTE | 2019-01-03 23:09 | ED.RN ---
UPON D/C PATIENT, PT EXPRESSED CONCERN FOR HER CARE HERE. THIS RN DISCUSSED HER CONCERNS WITH THE PATIENT AND HER MOTHER. THEY STATED THEY DID NOT WANT THE ED MANAGERS PHONE NUMBER TO DISCUSS THEIR CONCERNS REGARDING A PHYSICIAN MATTER BUT ASKED THAT I PASS ALONG THEIR EXPERIENCE IN THE ED TONIGHT TO THE DOOR REPAIRER BUS. PT ENCOURAGED TO RETURN TO THE ED WITH WORSENING SYMPTOMS. THIS RN TO EMAIL SENIOR ENTERPRISE ARCHITECT THIS SHIFT.
== END 2019-01-03 23:14 | disposition home or self-care (01) ==
PROVIDERS: Emergency Provider Emergency Medicine; Family Provider Family Medicine; PCP Family Medicine
DX: R10.13 Epigastric pain (principal); E11.9 Type 2 diabetes mellitus without complications; I27.20 Pulmonary hypertension, unspecified; Z79.84 Long term (current) use of oral hypoglycemic drugs; Z79.899 Other long term (current) drug therapy
CPT/HCPCS: 80048; 80076; 81001; 83690; 84703; 85025; 99283; A4216

== ENCOUNTER 2019-01-08 16:01 | Emergency (ER) | payer MEDICAID, SELFPAY ==
[2019-01-08 16:02] VITALS: BP 128/98; PULSE 127; RESP 16; TEMP 36.4; O2SAT 97; BMI 42.5
--- NOTE | 2019-01-08 16:52 | ED.DCSUM_ITS ---
History of Present Illness Chief Complaint: Abd Pain Detail of Chief Complaint: Bilateral midabdomen described as sharp Informant: Patient Onset: Days Context: Gradual Onset Timing: Continuous Quality: Sharp Location: Bilateral Current Severity: Mild Maximum Severity: Moderate Worsened by: Nothing Relieved by: Nothing Associated Symptoms: Nausea and vomiting today after brushing teeth Narrative: Patient is a 38-year-old woman history of polycystic ovarian syndrome status post appendectomy, cholecystectomy and hysterectomy who presents with bilateral mid abdominal pain described as sharp. There was associated nausea and vomiting today after brushing her teeth. She does admit to gagging. There is a family history of lupus. She has had a rash on her face that apparently no one knows the identity of and states it has never been biopsied. She was seen by her PCP and sent into the emergency room and seen last . She was seen by nurse practitioner today and sent to the emergency department. No call was made prior to patient's arrival. She denies fever, chills night sweats. She denies any ocular, visual auditory symptoms. She denies trouble with speech or swallowing. She denies cardiac respiratory symptoms. She states her abdomen is growing in size. She reports a 15 pound weight gain over the last month. She states her doctor increased her Lasix. She has not been on prednisone in some time. She denies any urologic symptoms. She denies trauma or rash. Past Medical History - Allergies and Home Meds Allergies/Adverse Reactions: Allergies adhesive Allergy (Verified 01/08/19 16:04) Other PAPER TAPE ERODES SKIN ketorolac tromethamine [From Toradol] Allergy (Verified 01/08/19 16:04) Shortness of breath naproxen sodium [From Aleve] Allergy (Verified 01/08/19 16:04) Shortness of breath Penicillins Allergy (Verified 01/08/19 16:04) Rash Primary Care Physician: Francesco Davila MD [Primary Care Provider] - Past Medical History: - - Polycystic ovarian syndrome Surgical History: appendectomy, cholecystectomy, hysterectomy, - - Lipid cystectomy, appendectomy Lives: With Family Smoking Status: Former smoker Drugs: None - Family History Maternal Family History: Reports: No pertinent history Paternal Family History: Reports: Heart Disease Review of Systems General: Denies: Chills, Fever, Sweats, Weight loss Eyes: Denies: Visual changes - bilaterally, Blurred Vision - bilaterally, Dipl opia ENT: Denies: Bilateral ear pain, Rhinorrhea, Sore throat Cardiovascular: Denies: Chest pain, Palpitations Respiratory: Denies: Dyspnea, Cough, Dyspnea on exertion Gastrointestinal: Reports: Abdominal pain, Nausea, Vomiting. Denies: Diarrhea, Constipation, Melena, Hematochezia Genitourinary: Denies: Dysuria, Hematuria, Frequency Musculoskeletal: Reports: Myalgias, Arthralgias - She denies joint swelling.. Denies: Back pain, Extremity Pain Skin: Denies: Rash, Wounds Neurological: Denies: Headache, Weakness, Numbness Endocrine: Denies: Polyuria, Polydipsia, Cold intolerance Hematologic: Denies: Easy bruising Allergy: Denies: Uticaria Physical Exam Vital Signs/Narrative: Vital Signs Temp Pulse Resp BP Pulse Ox 01/08/19 16:02 97.5 F L 127 H 16 128/98 H 97 General: Well nourished, Well developed, Obese Head: Normocephalic, Atraumatic Eyes: Perrl, EOMI. Negative for: Pale conjunctiva, Scleral icterus ENT: Moist mucous membranes, No rhinorrhea, TM's clear Neck: Supple, Nontender, No lymphadenopathy, No JVD Cardiovascular: Regular rate, Regular rhythm, No murmurs, Normal S1, Normal S2, Tachycardia Respiratory: No distress, CTA bilaterally, Chest nontender Abdomen: Soft, Nondistended, Normal bowel sounds, No masses, Ventral hernia, Inguinal hernia, Umbilical hernia. Negative for: Nontender Rectal: Deferred Back: Nontender, Normal Inspection. Negative for: CVA tenderness Extremities: Nontender, No edema. Negative for: Calf Tenderness Skin: Normal color, No rash, Rash Neurological: Normal Sensation - Nonblanching erythematous facial rash Psychological: Depressed Diagnostic/Tx/Re-eval CBC is remarkable for a white count of 11.2 thousand with normal differential. Hemoglobin is elevated compared to yesterday at 17.2. Sodium is 134, potassium is 3.0 and blood sugar is 343. Urine reveals glucosuria and ketones. The CO2 and anion gap were normal on the basic metabolic panel. Patient reports no improvement with Bentyl. - Medical Decision Making Patient with vague abdominal symptoms and exam that is benign. Patient had pain with depression of her skin. Skin was depressed at most 0.5 cm. There was no peritoneal findings or voluntary or involuntary guarding. Since patient is a return visit will repeat blood work and proceed from there. Patient was informed of her lab results. She was informed that the cause of her pain is unknown. She was informed based on history and physical her exam does not indicate anything serious. She was informed my purpose and role is to make sure she does not have anything serious or require surgery. Based on history physical and laboratory results compared to yesterday no further testing is needed. Especially since patient has pain with minimal depression of her skin. She was informed that 50% of patients who come to the emergency department the etiology of the pain is unknown. She was instructed to follow-up with her primary care physician. ED Disposition - Plan for ED Patient: Disposition: Home or Assisted Living Diagnosis: Bilateral abdominal pain unknown etiolog, Hyperglycemia due to type 2 diabetes mellitus, Mild dehydration Instructions: ED Abdominal Pain Unkn Cause Referrals: Francesco Davila MD [Primary Care Provider] - 3-5 Days if not improving
[2019-01-08] MEDS: Dicyclomine 10 MG Capsule 20 MG PO (17:02)
[2019-01-08 17:06] LABS: Bacteria 0 SEEN /hpf (None Seen); Mucous, Urine 0 SEEN /hpf (<or=2+); Red Blood Cells-Urine 0 SEEN /hpf (0-5)
[2019-01-08 17:17] LABS: Absolute Lymphocyte Count 3.13 X10^3/ul (0.83-4.51); Basophil# 0.03 X10^3/uL; Basophil% 0.3 % (0-1); Eosinophil# 0.05 X10^3/uL; Eosinophils% 0.4 % (0-5); Hematocrit 51.6 % (37-47); Hemoglobin 17.5 g/dl (12.0-15.0); Lymphocyte # 3.13 X10^3/ul (4.0); Lymphocyte % 27.9 % (19-41); Mean Corp Hgb Conc 33.9 g/gl (32-36); Mean Corpuscular Hgb 30.8 pg (27.0-32.0); Mean Corpuscular Volume 90.7 fL (81-99); Mean Platelet Vol. 12.5 fl (6.2-12.0); Monocyte# 0.94 X10^3/uL; Monocyte% 8.4 % (0-10); Neutrophil # 7.03 X10^3/uL (2.7-7.7); Neutrophil % 62.8 % (47-70); Platelet Count 252 K/mm3 (150-450); RBC Distribution Width CV 12.6 % (11.6-14.6); RBC Distribution Width SD 41.4 fl (35.1-43.9); Red Blood Count 5.69 M/mm3 (4.2-5.4); White Blood Count 11.2 K/mm3 (4.4-11.0)
[2019-01-08 17:18] LABS: Color, Urine Yellow (Yellow); Glucose, Dipstick 1000 mg/dl (Normal); Ketone-Dipstick Negative (Negative); Leukocyte Esterase-Dipstick 100 /ul (Negative); Nitrite-Dipstick Negative (Negative); Occult Blood-Urine 25 /ul (Negative); Protein-Dipstick 30 mg/dl (Negative); Urine Bilirubin Dipstick Negative (Negative); Urine Clarity Clear (Clear); Urine Urobilinogen Normal (Normal)
[2019-01-08 17:27] LABS: ALB/GLOB Ratio 0.8 RATIO (0.9-2.4); AST(SGOT) 50 U/L (15-37); Alanine Aminotransfer ALT/SGPT 63 U/L (13-56); Albumin, Serum 3.9 g/dL (3.2-5.0); Alkaline Phosphatase 115 U/L (45-117); Anion Gap 10 (5-15); BUN 8 mg/dL (7-18); BUN/Creat Ratio 8.8 RATIO (10-20); Calcium,Total 9.1 mg/dL (8.5-10.1); Chloride 91 mmol/L (98-107); Creatinine, Serum 0.91 mg/dL (0.55-1.02); EST Glomerular Filtration Rate 74 mL/min (>60); Est Glom Filt Rate - Afr Amer 90 mL/min (>60); Estimated Creatinine Clearance 89.32 ml/min; Globulin 4.9 g/dL (2.2-4.2); Glucose 363 mg/dL (74-106); Protein, Total 8.8 g/dL (6.4-8.2); Sodium Level 134 mmol/L (136-145)
[2019-01-08 17:30] LABS: POSITIVE COUNT NO; POSITIVE DIFFERENTIAL NO; POSITIVE MORPHOLOGY NO
[2019-01-08 17:47] LABS: Squamous Epithelial Cells - UA 0-5 SEEN /hpf (5-10); White Blood Cells 0-5 SEEN /hpf (0-5)
[2019-01-08 18:30] VITALS: BP 124/78; PULSE 82; RESP 16; O2SAT 98
== END 2019-01-08 18:48 | disposition home or self-care (01) ==
PROVIDERS: Emergency Provider Emergency Medicine; Family Provider Family Medicine; PCP Family Medicine
DX: R10.9 Unspecified abdominal pain (principal); E11.65 Type 2 diabetes mellitus with hyperglycemia; E86.0 Dehydration; Z87.891 Personal history of nicotine dependence; Z79.84 Long term (current) use of oral hypoglycemic drugs; Z79.899 Other long term (current) drug therapy
CPT/HCPCS: 80053; 81001; 85025; 99283

== ENCOUNTER → 2019-01-11 16:01 | Outpatient (CLI) | payer MEDICAID, SELFPAY ==
[2019-01-08 16:02] VITALS: BMI 42.5
--- NOTE | 2019-01-11 16:07 | CT_ITS ---
STUDY: CT ABDOMEN AND PELVIS WITH CONTRAST REASON FOR EXAM: Female, 38 years old. Hematuria. Right upper quadrant pain. RADIATION DOSAGE (If Supplied By Facility): CTDIvol = ( 16.10 ) mGy, DLP = ( 1159.50 ) mGycm TECHNIQUE: Transaxial images were obtained from the dome of the diaphragm to the symphysis pubis without oral contrast. Isovue 300 100ml IV was administered. Sagittal and coronal images were reconstructed. Individualized dose optimization techniques were used for this CT. COMPARISON: September 05, 2011. FINDINGS: The visualized lung bases are unremarkable. The visualized portions of the heart are within normal limits. Normal liver. There are surgical clips in the gallbladder fossa consistent with a prior cholecystectomy. Normal spleen. Normal pancreas. Normal bilateral adrenal glands. Normal right kidney. Normal left kidney. Normal visualized stomach. Normal small intestine. Normal colon. There is non-visualization of the appendix. Normal abdominal aorta. Normal inferior vena cava. Normal retroperitoneum. Normal urinary bladder. There is absence of the uterus consistent with a prior hysterectomy. Normal abdominal wall. There is a healing right anterior sixth rib fracture. There are degenerative changes of the lumbar spine. CT/Abdomen/Pelvis W IV Cont ONLY IMPRESSION: Healing right sixth anterior rib fracture. Degenerative changes of the lumbar spine. No acute intra-abdominal process. Electronically Signed: Haley Gallegos MD at 16:47 EST Tel , Service support ,
== END ==
PROVIDERS: Family Provider Family Medicine; PCP Family Medicine; Referring Provider Nurse Practitioner Adult Health; Visit Provider Nurse Practitioner Adult Health
DX: R10.0 Acute abdomen (principal); R31.9 Hematuria, unspecified; R11.0 Nausea
CPT/HCPCS: 74177; Q9967

== ENCOUNTER 2019-02-12 22:21 | Emergency (ER) | payer MEDICAID, SELFPAY ==
[2019-02-12 22:23] VITALS: BP 134/86; PULSE 81; RESP 16; TEMP 35.9; O2SAT 95; BMI 41.9
[2019-02-12 22:40] LABS: Bedside Glucose 465 mg/dL (70-110)
--- NOTE | 2019-02-12 23:16 | ED.VISSUMM ---
- ER Visit Summary Date of Service: 02/12/19 Chief Complaint: Elevated blood sugars History of Present Illness: The patient is a 38 F with H. pylori peptic ulcer and pulmonary hypertension. Patient states her primary care physician once to get her started on Trulicity to help control her blood sugars but unable to get it filled at this time due to insurance issue with covering medication. She is also supposed to be on metformin but states she has been compliant with that due to her stomach pain from the H. pylori. She recently underwent upper endoscopy. She denies any fever. No dysuria. States her blood sugars have been elevated which is happened in the past but she said it never been this high. Her most recent blood sugar tonight was 596. She has never been in DKA. No diarrhea or vomiting. Physical Examination: No acute distress. Vital signs are stable and afebrile. HEENT exam unremarkable. Moist weeks membranes. Neck nontender. Lungs clear to auscultation bilaterally. Heart regular rhythm no murmur. Abdomen obese but soft and nontender. Normal bowel sounds no peritoneal signs. Extremities moves all 4. Nontender. No edema. Neurologically she is awake alert with no focal motor deficits. Skin unremarkable. Test Results: CBC White count equals 9. Hemoglobin 17. BMP shows a sodium of 129. Glucose of 430. Normal anion gap of 7 and normal creatinine. Serum ketones are negative. Emergency Department Course and Treatment: Treated with IV fluids. Subcu insulin 10 units. Patient's blood sugar will be rechecked one hour after the insulin. If it is improving she will be discharged home. Treatment Plan: Continue her metformin. Currently. Follow-up with her primary care doctor. Return if worse. Disposition: Discharge Impression: Acute hyperglycemia History of [id number] diabetes with medical noncompliance This note was generated with [employer] dictation software. It may contain incorrect words, spelling, and punctuation that were not noted in review of the chart prior to signing ED Disposition - Plan for ED Patient: Referrals: Francesco Davila MD [Primary Care Provider] -
[2019-02-12 23:58] LABS: Absolute Lymphocyte Count 4.16 X10^3/ul (0.83-4.51); Absolute Neutrophil Count 4.1 X10^3/uL (2.0-7.7); Basophil# 0.03 X10^3/uL; Basophil% 0.3 % (0-1); Eosinophil# 0.08 X10^3/uL; Eosinophils% 0.8 % (0-5); Hematocrit 50.2 % (37-47); Hemoglobin 17.1 g/dl (12.0-15.0); Lymphocyte # 4.16 X10^3/ul (4.0); Lymphocyte % 43.7 % (19-41); Mean Corp Hgb Conc 34.1 g/gl (32-36); Mean Corpuscular Volume 88.1 fL (81-99); Mean Platelet Vol. 12.4 fl (6.2-12.0); Monocyte# 1.17 X10^3/uL; Monocyte% 12.3 % (0-10); Neutrophil # 4.07 X10^3/uL (2.7-7.7); Neutrophil % 42.7 % (47-70); Platelet Count 266 K/mm3 (150-450); RBC Distribution Width CV 12.7 % (11.6-14.6); RBC Distribution Width SD 40.4 fl (35.1-43.9); White Blood Count 9.5 K/mm3 (4.4-11.0)
[2019-02-12 23:59] LABS: POSITIVE COUNT NO; POSITIVE DIFFERENTIAL NO; POSITIVE MORPHOLOGY NO
[2019-02-13] MEDS: 0.9% Normal Saline 1,000 ML 1000 ML IV (00:01)
[2019-02-13] MEDS: Insulin Lispro 100 UNIT/ML INSULN.PEN 10 UNIT SC (00:01)
[2019-02-13 00:19] LABS: Anion Gap 7 (5-15); BUN 11 mg/dL (7-18); BUN/Creat Ratio 11.8 RATIO (10-20); Calcium,Total 9.1 mg/dL (8.5-10.1); Chloride 93 mmol/L (98-107); Creatinine, Serum 0.93 mg/dL (0.55-1.02); EST Glomerular Filtration Rate 73 mL/min (>60); Est Glom Filt Rate - Afr Amer 88 mL/min (>60); Glucose 430 mg/dL (74-106); Potassium 3.6 mmol/L (3.5-5.1); Sodium Level 129 mmol/L (136-145)
--- NOTE | 2019-02-13 00:43 | ED.DEP ---
ED Disposition - Plan for ED Patient: Disposition: Home or Assisted Living Instructions: ED Hyperglycemia Diabetic Referrals: Francesco Davila MD [Primary Care Provider] - As soon as possible Additional Instructions: Check blood sugars at least 3-4 times a day. Blood sugar before he can sleep tonight. Absolutely must restart take your metformin as prescribed. Drink plenty of water today.
[2019-02-13 01:06] LABS: Bedside Glucose 361 mg/dL (70-110)
[2019-02-13 01:14] VITALS: BP 115/70; PULSE 77; RESP 14; O2SAT 96
--- NOTE | 2019-02-13 01:15 | ED.RN ---
PT UNDERSTANDS VERBAL AND WRITTEN DISCHARGE INSTRUCTIONS, AND INSTRUCTIONS TO TAKE HOME MEDS WHEN PT GETS HOME PER MD
== END 2019-02-13 01:16 | disposition home or self-care (01) ==
PROVIDERS: Emergency Provider Emergency Medicine; Family Provider Family Medicine; PCP Family Medicine
DX: E11.65 Type 2 diabetes mellitus with hyperglycemia (principal); Z91.14 Patient's other noncompliance with medication regimen; Z79.84 Long term (current) use of oral hypoglycemic drugs; Z79.899 Other long term (current) drug therapy
CPT/HCPCS: 80048; 82009; 82962; 85025; 96360; 99284; J7030; A4216

== ENCOUNTER → 2019-07-04 15:37 | Outpatient (CLI) | payer MEDICAID, SELFPAY ==
--- NOTE | 2019-07-04 15:39 | MRI_ITS ---
STUDY: MRI RIGHT KNEE REASON FOR EXAM: Right medial knee pain with swelling and buckling for 6 months after a fall, prior meniscal surgeries. TECHNIQUE: Standardized fat and water weighted pulse sequences were obtained in all 3 orthogonal planes. COMPARISON: Radiographs 07/05/2018 and MRI images 01/06/2017 FINDINGS: There is a complex signal alteration of the posterior horn of the medial meniscus with a predominant oblique component (proton density sagittal images 30-36), more likely recurrent medial meniscal tear rather than scarring since there is a parameniscal cyst mildly increased since the prior study (T2 sagittal images 16-21). There is intrasubstance mucoid degeneration of the body of the medial meniscus (proton density coronal images 15-20) as on the prior study. There is peripheral subluxation of the medial meniscus. Normal hyaline cartilage of the medial femorotibial compartment. Normal medial femoral condyle and tibial plateau. Normal medial collateral ligamentous complex (MCL). Normal distal semimembranosus, gracilis and semitendinosus tendons. Normal lateral meniscus. Normal hyaline cartilage of the lateral femorotibial compartment. Normal lateral femoral condyle and tibial plateau. Normal proximal tibiofibular articulation. Normal lateral collateral (fibular) ligament. Normal popliteus tendon. Normal biceps femoris tendon. Normal anterior cruciate ligament (ACL). There is mild intrasubstance mucoid degeneration of the posterior cruciate ligament (T2 sagittal image 15) as on the prior study. Normal congruent patellofemoral articulation. Normal hyaline cartilage of the patellofemoral compartment. Normal medial and lateral patellar retinaculum. Normal quadriceps tendon. There is patellar enthesopathy. Normal patellar tendon. There is postoperative scarring in Hoffa's fat pad. There is no joint effusion. There is a small popliteal cyst (T2 sagittal images 19-21). The otherwise visualized osseous structures are unremarkable. MRI/Lower Ext Joint Only (Routine) IMPRESSION: Signal alteration of the posterior horn of the medial meniscus, more likely recurrent medial meniscal tear rather than scarring since there is a parameniscal cyst. Small popliteal cyst. Electronically Signed: Juvencio Benitez MD at 8:53 EDT Tel , Service support ,
== END ==
PROVIDERS: Family Provider Family Medicine; PCP Family Medicine; Referring Provider Orthopaedic Surgery; Visit Provider Orthopaedic Surgery
DX: M25.561 Pain in right knee (principal)
CPT/HCPCS: 73721

== ENCOUNTER 2019-07-31 11:56 | Day surgery (SDC) | payer MEDICAID, SELFPAY ==
--- NOTE | 2019-07-16 01:23 | HP_ITS ---
Intake Vital Signs 07/16/19 Body Mass Index (BMI) 41.9 Intake Visit Reasons: RIGHT KNEE Is patient in pain?: Yes Allergies adhesive Allergy (Verified 06/25/19 12:29) Other ketorolac tromethamine [From Toradol] Allergy (Verified 06/25/19 12:29) Shortness of breath naproxen sodium [From Aleve] Allergy (Verified 06/25/19 12:29) Shortness of breath Penicillins Allergy (Verified 06/25/19 12:29) Rash Medications Nadolol [Corgard (Beta Jazz)] 40 mg PO BID 02/17/15 [History Confirmed 06/25/19] Furosemide [Lasix] 40 mg PO DAILY 06/07/15 [History Confirmed 06/25/19] Spironolactone [Aldactone] 50 mg PO DAILY 07/30/15 [History Confirmed 06/25/19] Lorazepam [Ativan] 1 mg PO DAILY PRN PRN 09/04/16 [History Confirmed 06/25/19] metFORMIN (XR) [Glucophage Xr] 1,000 mg PO BID 09/04/16 [History Confirmed 06/25/19] Omeprazole 40 mg PO DAILY 02/12/19 [History Confirmed 06/25/19] isosorbide mononitrate ER 30 mg tablet,extended release 24 hr 30 mg PO DAILY 07/16/19 [History Confirmed 07/16/19] PFSH Social History (Updated 07/16/19 @ 13:23 by Brielle Gilbert DO) Smoking Status: Never smoker HPI RIGHT KNEE: Surgical H&P: Yes Details: Parts of this documentation were recorded by a scribe, this documentation accurately reflects the service provided and the decisions made by me, Brielle Gilbert DO 07/16/19 0958. LUKASZ RAMIREZ is a 38 year old F here today for F/U after right knee MRI. Denies numbness, tingling or other associated symptoms. Patient states she continue to have medial sided knee pain and continues to have popping/clicking and locking that is painful. Denies any other changes since last visit. ROS Const Reports system reviewed and no additional complaints, except as docu Eyes Reports system reviewed and no additional complaints, except as docu ENT Reports system reviewed and no additional complaints, except as docu Card Reports system reviewed and no additional complaints, except as docu Resp Reports system reviewed and no additional complaints, except as docu GI Reports system reviewed and no additional complaints, except as docu Musc Reports as per HPI Skin/Breast Reports system reviewed and no additional complaints, except as docu Neuro Yes system reviewed and no additional complaints, except as docu Psych Reports system reviewed and no additional complaints, except as docu Endo Reports system reviewed and no additional complaints, except as docu Lewis/Lymph Reports system reviewed and no additional complaints, except as docu Aller/Immun Reports system reviewed and no additional complaints, except as docu Ortho Exam Right Knee Contralateral Normal: Yes Homans Sign: No Knee ROM: Yes ROM-Extension -20 to 0, No ROM-Flexion 0-140 Examination: Yes Med jt line tenderness, Yes Pain with flexion Stability: NML: Anterior Drawer, NML: Gunjan, NML: Posterior Drawer, NML: Valgus 0, NML: Valgus 30, NML: Varus 0, NML: Varus 30, NML: Dial 90, NML: Dial 30 Assessment & Plan Problems 1. Acute medial meniscus tear of right knee, subsequent encounter S83.241D Plan Personally reviewed MRI and explained that she has a new meniscus tear, her treatment options are do nothing, steroid injection, bracing or surgery for debridement. Explained that the past sutures are working but the tear has moved beyond the old repair. Reviewed the possible surgical options and patient elects to proceed Reviewed the pre-operative plans with the patient. Risks and benefits of the procedure were fully explained, including but not limited to infection, neurovascular injury, continued pain, arthritis, stiffness, need for further surgery, re-injury, DVT, PE, general risks of anesthesia, and loss of limb or life. The patient understands all the risks and does wish to proceed with written consent. Follow up post op or sooner if pain, swelling, numbness or associated symptoms, or concerns develop. All questions answered. Patient in agreement of plan. Medications New: isosorbide mononitrate ER 30 mg PO DAILY Coding Level of Care Code Off vis,est,level 4 Diagnoses Acute medial meniscus tear of right knee, subsequent encounter S83.748D ??Encounter type: subsequent encounter 07/16/19 1323 <Electronically signed by Brielle haynes DO> Date _ Brielle Gilbert DO
[2019-07-16 10:03] VITALS: BMI 41.9
[2019-07-31 12:25] VITALS: BP 110/80; PULSE 87; RESP 16; TEMP 36; O2SAT 96; BMI 38.9
[2019-07-31 12:50] LABS: Bedside Glucose 151 mg/dL (70-110)
[2019-07-31] MEDS: Lactated Ringers 1,000 ML 100 ML IV (13:48)
[2019-07-31] MEDS: Cefazolin 2 GM in 0.9% Normal Saline 100 ML IV (13:50)
--- NOTE | 2019-07-31 13:55 | DCINST_ITS ---
Discharge Diet: No Restrictions - ttwb leg with brace locked in extension, lock brace in extension at night, march rom knee 0-70 while seated, follow up on monday with nora for dressing change and brace adjustment, call w concerns Discharge Activity: May Not Drive May shower in (days): 1 Ice area for (Minutes): 20 - Every hour while awake. Weight Bearing Status: Weight bearing as tolerated Keep extremity elevated above heart level: Operative Extremity Call your doctor if your incision/area has: Continuous Slow Oozing, Sudden Increased Bleeding, Increased Pain/ Swelling, Increased Redness, Foul Smelling Discharge Call your doctor if you observe: Fever of 101 or Higher, Coldness, Increased Pain, Numbness or Tingling, Change in Color, Calf discomfort Allergies/Adverse Reactions: Allergies ketorolac tromethamine [From Toradol] Allergy (Verified 07/24/19 14:13) Shortness of breath naproxen sodium [From Aleve] Allergy (Verified 07/24/19 14:13) Shortness of breath Penicillins Allergy (Verified 07/24/19 14:13) Rash paper tape Allergy (Uncoded 07/24/19 14:14) erodes skin Medications to take at Discharge Nadolol [Corgard (Beta Jazz)] 40 mg PO BID 02/17/15 Furosemide [Lasix] 80 mg PO DAILY 06/07/15 Spironolactone [Aldactone] 50 mg PO DAILY 07/30/15 Lorazepam [Ativan] 1 mg PO DAILY PRN PRN 09/04/16 metFORMIN (XR) [Glucophage Xr] 1,000 mg PO BID 09/04/16 isosorbide mononitrate ER 30 mg tablet,extended release 24 hr 30 mg PO DAILY 07/16/19 Dulaglutide [Trulicity] 0.75 mg SQ QWEEK 07/24/19 Insulin Glargine,Hum.rec.anlog [Basaglar Kwikpen U-100] 10 unit SUBCUT LUNCH 07/24/19 Magnesium Oxide [Magnesium] 250 mg PO DAILY 07/24/19 Ondansetron HCl [Zofran] 4 mg PO PRN PRN 07/24/19 Oxycodone HCl/Acetaminophen [Percocet 5/325] 1 - 2 tab PO Q6H PRN PRN 5 Days #28 tab 07/31/19 The following prescriptions were given: Oxycodone HCl/Acetaminophen [Percocet 5/325] 1 - 2 tab PO Q6H PRN PRN 5 Days #28 tab PRN Reason: Pain Transmission Status: Received by [facility] Primary Care Physician: Francesco Davila MD [Primary Care Provider] - Test Results: Test results from this visit will be discussed in further detail at your follow- up appointment, if applicable. Please Follow Up With: Brielle Gilbert, - [phone]
--- NOTE | 2019-07-31 13:56 | PCM.HP.BLA ---
History and Physical I have re-examined the patient. There are no clinical changes since date of exam. Intake Vital Signs 07/16/19 Body Mass Index (BMI) 41.9 Intake Visit Reasons: RIGHT KNEE Is patient in pain?: Yes Allergies adhesive Allergy (Verified 06/25/19 12:29) Other ketorolac tromethamine [From Toradol] Allergy (Verified 06/25/19 12:29) Shortness of breath naproxen sodium [From Aleve] Allergy (Verified 06/25/19 12:29) Shortness of breath Penicillins Allergy (Verified 06/25/19 12:29) Rash Medications Nadolol [Corgard (Beta Jazz)] 40 mg PO BID 02/17/15 [History Confirmed 06/25/19] Furosemide [Lasix] 40 mg PO DAILY 06/07/15 [History Confirmed 06/25/19] Spironolactone [Aldactone] 50 mg PO DAILY 07/30/15 [History Confirmed 06/25/19] Lorazepam [Ativan] 1 mg PO DAILY PRN PRN 09/04/16 [History Confirmed 06/25/19] metFORMIN (XR) [Glucophage Xr] 1,000 mg PO BID 09/04/16 [History Confirmed 06/25/19] Omeprazole 40 mg PO DAILY 02/12/19 [History Confirmed 06/25/19] isosorbide mononitrate ER 30 mg tablet,extended release 24 hr 30 mg PO DAILY 07/16/19 [History Confirmed 07/16/19] PFSH Social History (Updated 07/16/19 @ 13:23 by Brielle Gilbert DO) Smoking Status: Never smoker HPI RIGHT KNEE: Surgical H&P: Yes Details: Parts of this documentation were recorded by a scribe, this documentation accurately reflects the service provided and the decisions made by me, Brielle Gilbert DO 07/16/19 0958. LUKASZ RAMIREZ is a 38 year old F here today for F/U after right knee MRI. Denies numbness, tingling or other associated symptoms. Patient states she continue to have medial sided knee pain and continues to have popping/clicking and locking that is painful. Denies any other changes since last visit. ROS Const Reports system reviewed and no additional complaints, except as docu Eyes Reports system reviewed and no additional complaints, except as docu ENT Reports system reviewed and no additional complaints, except as docu Card Reports system reviewed and no additional complaints, except as docu Resp Reports system reviewed and no additional complaints, except as docu GI Reports system reviewed and no additional complaints, except as docu Musc Reports as per HPI Skin/Breast Reports system reviewed and no additional complaints, except as docu Neuro Yes system reviewed and no additional complaints, except as docu Psych Reports system reviewed and no additional complaints, except as docu Endo Reports system reviewed and no additional complaints, except as docu Lewis/Lymph Reports system reviewed and no additional complaints, except as docu Aller/Immun Reports system reviewed and no additional complaints, except as docu Ortho Exam Right Knee Contralateral Normal: Yes Homans Sign: No Knee ROM: Yes ROM-Extension -20 to 0, No ROM-Flexion 0-140 Examination: Yes Med jt line tenderness, Yes Pain with flexion Stability: NML: Anterior Drawer, NML: Gunjan, NML: Posterior Drawer, NML: Valgus 0, NML: Valgus 30, NML: Varus 0, NML: Varus 30, NML: Dial 90, NML: Dial 30 Assessment & Plan Problems 1. Acute medial meniscus tear of right knee, subsequent encounter S83.036D Plan Personally reviewed MRI and explained that she has a new meniscus tear, her treatment options are do nothing, steroid injection, bracing or surgery for debridement. Explained that the past sutures are working but the tear has moved beyond the old repair. Reviewed the possible surgical options and patient elects to proceed Reviewed the pre-operative plans with the patient. Risks and benefits of the procedure were fully explained, including but not limited to infection, neurovascular injury, continued pain, arthritis, stiffness, need for further surgery, re-injury, DVT, PE, general risks of anesthesia, and loss of limb or life. The patient understands all the risks and does wish to proceed with written consent. Follow up post op or sooner if pain, swelling, numbness or associated symptoms, or concerns develop. All questions answered. Patient in agreement of plan. Medications New: isosorbide mononitrate ER 30 mg PO DAILY Coding Level of Care Code Off vis,est,level 4 Diagnoses Acute medial meniscus tear of right knee, subsequent encounter S83.472D ??Encounter type: subsequent encounter
[2019-07-31] MEDS: Epinephrine (1 mg/ml) 1 MG/ML VIAL (15:08)
[2019-07-31 15:24] VITALS: BP 109/77; BP 110/80; PULSE 88; RESP 18; TEMP 36.1; O2SAT 99
[2019-07-31 15:30] VITALS: BP 110/80; BP 127/79; PULSE 92; RESP 17; O2SAT 98
[2019-07-31 15:31] LABS: Bedside Glucose 174 mg/dL (70-110)
[2019-07-31 15:45] VITALS: BP 110/80; BP 118/79; PULSE 86; RESP 16; O2SAT 94
[2019-07-31 15:53] VITALS: BP 110/80; BP 123/74; PULSE 83; RESP 16; TEMP 36.1; O2SAT 97
[2019-07-31] MEDS: HYDROcodone Bitartrate/Apap 5/325 Tablet PO (16:50)
--- NOTE | 2019-07-31 17:20 | OP.PCM_ITS ---
Report of Operation Date of Procedure: 07/31/19 Pre-Operative Diagnosis: right knee medial meniscus tear, synovitis Post-Operative Diagnosis: same Surgery/Procedure Performed:: sark, pmm, med men repair, extensive synovectomy assault amphibious vehicle crewman: Devan Caro Type of Anesthesia:: General Anesthesiologist: Charlie Suazo Estimated Blood Loss (mL): minimal Fluids Replaced: 1000ml lr Description of Procedure: Preop note Patient is a 38-year-old female with continued right knee pain despite conservative treatment and has had medial meniscus repair in the past. Patient also has newly diagnosed with inflammatory arthritis. Patient has knee pain MRI confirms medial meniscus tear. Risk benefits alternatives surgery discussed with patient. Risks include but not limited to blood loss, blood clot, infection, neurovascular, failure procedure, loss of life and loss of limb. Patient is aware like proceed with right knee arthroscopy repair as indicated. Next Operative note Patient seen and examined preop clear. Right knee was marked. Patient brought to the operating placed supine on the operating table. Signed, anesthesia, antibiotics were administered. The right leg was prepped and draped usual sterile fashion with tourniquet around her upper thigh. Marked our incisions for anterolateral anteromedial portal placement. The right leg was an elevated same no bake molder rates her pressure of 200 250 torr. Please note all bony problems well-padded SCDs placed on her contralateral limb. We then created our anterior lateral portal. We had a difficulty getting into the knee joint due to the fact that she had extensive synovitis and scar tissue from previous surgeries as well as her autoimmune inflammation. We created an anterior medial portal under direct direct visualization. She extensive synovitis which was resected anterior medial anterior laterally and superiorly with a shaver. We then probed the posterior medial meniscus which was unstable we resected the unstable portions she had a split interest substance medial meniscus tear that extended from the mid body to the root however the root was intact. We was resected the unstable pieces and then performed on 3 stand which stitches further prevent propagation of the tear please note that we did rasp the tear prior to as well. Again we performed extensive synovectomy partial medial meniscectomy and medial meniscus repair. Her ACL PCL were present within the notch. Her lateral meniscus was intact and stable probing her lateral femoral condyle lateral tibial plateau plateau were intact stable probing she had some fibrillated 2 fibrillated changes of her lateral to the of her and start her medial tibial plateau. Tourniquet was deflated for a total working time of 30 minutes. Knee was irrigated with copious muscle sterile saline portals were closed with interrupted 4 nylon sutures. Sterile dressings were applied. Brace was applied. Patient tied procedure well transferred recovery room stable condition. Postoperative note Toe-touch weightbearing Pharmacy has prescriptions Follow-up on Monday with Joce for dressing changes Call with increased pain numbness tingling further issues arises G[employer] Dragon This note was generated with [employer] dictation software. It may contain incorrect words, spelling, and punctuation that were not noted in checking the note before signing.
[2019-07-31 18:01] VITALS: BP 107/73; BP 110/80; PULSE 86; RESP 16; TEMP 36.4; O2SAT 95
== END 2019-07-31 18:11 | disposition home or self-care (01) ==
LOC: SDC 11:56 → AC 11:58
PROVIDERS: Family Provider Family Medicine; PCP Family Medicine; Referring Provider Orthopaedic Surgery; Visit Provider Orthopaedic Surgery
PROC: (CPT 29882; principal; 2019-07-31 13:15)
DX: S83.241A Other tear of medial meniscus, current injury, right knee, initial encounter (principal); M65.9 Synovitis and tenosynovitis, unspecified; X58.XXXA Exposure to other specified factors, initial encounter; Y93.9 Activity, unspecified; Y92.9 Unspecified place or not applicable; M17.11 Unilateral primary osteoarthritis, right knee; I27.20 Pulmonary hypertension, unspecified; I34.1 Nonrheumatic mitral (valve) prolapse; E11.9 Type 2 diabetes mellitus without complications; F41.9 Anxiety disorder, unspecified; Z79.84 Long term (current) use of oral hypoglycemic drugs; Z79.4 Long term (current) use of insulin; Z79.899 Other long term (current) drug therapy
CPT/HCPCS: 29882; 82962; J7120; J2405

== ENCOUNTER 2019-08-06 20:47 | Emergency (ER) | payer MEDICAID, SELFPAY ==
[2019-08-05 14:23] VITALS: BMI 38.9
[2019-08-06 20:48] VITALS: BP 111/70; PULSE 86; RESP 20; TEMP 36.9; O2SAT 95; BMI 36.7
--- NOTE | 2019-08-06 22:08 | ED.RN ---
PATIENT WAS CALLED TO GO BACK TO HER ROOM AND ANOTHER PATIENT SAID THAT SHE LEFT.
[2019-08-06 22:39] VITALS: TEMP 36.9
== END 2019-08-06 21:45 | disposition left against medical advice (07) ==
LOC: ED 22:14
PROVIDERS: Emergency Provider Emergency Medicine; Family Provider Family Medicine; PCP Family Medicine
DX: R69 Illness, unspecified (principal); Z53.21 Procedure and treatment not carried out due to patient leaving prior to being seen by health care provider

== ENCOUNTER → 2020-07-21 08:42 | Outpatient (CLI) | payer MEDICAID, SELFPAY ==
[2019-09-19 12:51] VITALS: BMI 36.7
[2020-07-21 10:40] LABS: Absolute Lymphocyte Count 2.35 X10^3/uL (0.83-4.51); Absolute Neutrophil Count 6.1 X10^3/uL (2.0-7.7); Basophil# 0.07 X10^3/uL; Basophil% 0.7 % (0-1); Eosinophil# 0.11 X10^3/uL; Eosinophils% 1.1 % (0-5); Hematocrit 47.1 % (37-47); Hemoglobin 15.5 g/dL (12.0-15.0); Lymphocyte # 2.35 X10^3/ul (4.0); Lymphocyte % 24.3 % (19-41); Mean Corp Hgb Conc 32.9 g/dL (32-36); Mean Corpuscular Hgb 31.1 pg (27.0-32.0); Mean Corpuscular Volume 94.6 fL (81-99); Mean Platelet Vol. 11.7 fl (6.2-12.0); Monocyte# 0.97 X10^3/uL; NRBC Flagged by Analyzer 0 % (0-5); Neutrophil # 6.14 X10^3/uL (2.7-7.7); Neutrophil % 63.4 % (47-70); Platelet Count 295 K/mm3 (150-450); RBC Distribution Width CV 13.1 % (11.6-14.6); Red Blood Count 4.98 M/mm3 (4.2-5.4); White Blood Count 9.7 K/mm3 (4.4-11.0)
[2020-07-21 11:03] LABS: ALB/GLOB Ratio 0.8 RATIO (0.9-2.4); AST(SGOT) 58 U/L (15-37); Alanine Aminotransfer ALT/SGPT 65 U/L (13-56); Albumin, Serum 3.5 g/dL (3.2-5.0); Alkaline Phosphatase 123 U/L (45-117); Anion Gap 3 (5-15); BUN 8 mg/dL (7-18); Calcium,Total 9.1 mg/dL (8.5-10.1); Chloride 100 mmol/L (98-107); Creatinine, Serum 0.62 mg/dL (0.55-1.02); EST Glomerular Filtration Rate 116 mL/min (>60); Est Glom Filt Rate - Afr Amer 140 mL/min (>60); Globulin 4.5 g/dL (2.2-4.2); Glucose 318 mg/dL (74-106); Sodium Level 133 mmol/L (136-145)
== END ==
PROVIDERS: PCP Family Medicine
DX: M19.90 Unspecified osteoarthritis, unspecified site (principal); Z79.899 Other long term (current) drug therapy
CPT/HCPCS: 36415; 80053; 85025

== ENCOUNTER → 2021-03-16 16:55 | Outpatient (CLI) | payer MEDICAID, SELFPAY ==
[2019-09-19 12:51] VITALS: BMI 36.7
--- NOTE | 2021-03-16 16:56 | MRI_ITS ---
STUDY: MRI LEFT SHOULDER REASON FOR EXAM: Left shoulder pain, limited range of motion, left shoulder injury. TECHNIQUE: Standardized fat and water weighted pulse sequences were obtained in all 3 orthogonal planes. COMPARISON: Radiographs 03/02/2021. FINDINGS: There is a small focus of calcific tendinitis of the supraspinatus tendon (T2 coronal image 9) measuring 0.25 cm in length. There is no discrete tear of the supraspinatus tendon. Normal infraspinatus tendon. Normal subscapularis tendon. Normal teres minor tendon. Normal supraspinatus muscle. Normal infraspinatus muscle. Normal subscapularis muscle. Normal teres minor muscle. There is a small glenohumeral joint effusion with fluid extending into the bicipital tendon sheath. Normal humeral head and visualized proximal humerus. Normal biceps labral complex. Normal intracapsular long biceps tendon. There is a small tear of the posterior aspect of the superior labrum (proton-density coronal image 11). Normal capsulo- ligamentous complex. Normal acromioclavicular articulation. There is a Type II morphology (curved), with a neutral orientation. There is no subacromial-subdeltoid bursal fluid. Normal visualized coracohumeral and coracoacromial ligaments. Normal deltoid muscle. Normal trapezius muscle. MRI/Upper Ext Joint Only(Routine) IMPRESSION: Calcific tendinitis of the supraspinatus tendon. Small tear of the posterior aspect of the superior labrum. Small glenohumeral joint effusion. No demonstrated rotator cuff tear. Electronically Signed: Juvencio Benitez MD at 11:26 EDT Tel , Service support ,
== END ==
PROVIDERS: PCP Family Medicine; Referring Provider Orthopaedic Surgery; Visit Provider Orthopaedic Surgery
DX: M75.32 Calcific tendinitis of left shoulder (principal); M75.22 Bicipital tendinitis, left shoulder
CPT/HCPCS: 73221

== ENCOUNTER 2023-01-18 13:44 | Emergency (ER) | payer MEDICAID, SELFPAY ==
[2023-01-18 13:45] VITALS: BP 127/92; PULSE 79; RESP 22; TEMP 36.5; O2SAT 98; BMI 39.3
--- NOTE | 2023-01-18 14:13 | EDS_ITS ---
HPI History of Present Illness Chief Complaint: Palpitations Informant: patient Onset/Context/Timing Onset: Days (2 days ago) Activity at onset: sudden Timing: Continuous Quality: Positive for - (Shocking) Location: Substernal Worsened By: Nothing Relieved By: Nothing Associated Symptoms: Positive for Palpitations; Negative for Nausea, Vomiting, Diaphoresis, Dyspnea, Cough, Fever, Lightheadedness or Acid Reflux Narrative Narrative: Patient presents with chest pain that began 2 days ago. Patient states it began rather suddenly. Patient states it has been constant. Patient states that better little bit yesterday but is worse again today. Patient describes it as shocking across her chest. Patient states nothing makes it worse and nothing makes it better. Patient states it does radiate up into her neck. Patient denies any shortness of breath. Patient states she has episodes where she feels her heart racing. Patient denies any nausea or vomiting. Patient denies any diaphoresis. CVD Risk Factors: Positive for Hypertension, Diabetes, Hypercholesterolemia and Family History 1' </=55; Negative for Smoking PE Risk Factors: Negative for Recent Travel/Surgery, Recent Immobilization, Prior DVT or PE, Cancer or OCP + Smoking + >/=35 [facility] Medical History (Updated 01/18/23 @ 15:[address] Charlie Mills, DO) Asthma Carpal tunnel syndrome Diabetes Hyperlipidemia Hypertension Pulmonary hypertension Home Medications nadolol 40 mg tablet 40 mg PO BID 02/17/15 [History Last Taken 01/08/19] furosemide 40 mg tablet 80 mg PO PRN PRN Edema 06/07/15 [History Last Taken 01/08/19] metformin 500 mg tablet,extended release 24 hr 1,000 mg PO BID 09/04/16 [History Last Taken 01/08/19] dulaglutide 0.75 mg/0.5 mL subcutaneous pen injector 0.75 mg SQ QWEEK 07/24/19 [History Last Taken Unknown] gabapentin 600 mg tablet 600 mg PO BID 03/02/21 [History Last Taken Unknown] olanzapine 10 mg tablet 10 mg PO DAILY 03/02/21 [History Last Taken Unknown] prazosin 1 mg capsule 1 mg PO DAILY 03/02/21 [History Last Taken Unknown] Allergy/AdvReac Type Severity Reaction Status Date / Time adhesive tape [paper tape] Allergy Other Verified 09/07/22 14:54 ketorolac tromethamine Allergy Shortness Verified 08/15/19 12:43 [From Toradol] of breath naproxen sodium [From Aleve] Allergy Shortness Verified 08/15/19 12:43 of breath Penicillins Allergy Rash Verified 08/15/19 12:43 Surgical History (Updated 01/18/23 @ 14:[address] Charlie Mills DO) History of carpal tunnel surgery History of hysterectomy Hx of appendectomy Hx of cholecystectomy Hx of reduction mammoplasty Social History Smoking Status: Unknown if ever smoked ROS ROS ED Constitutional Constitutional ED: Denies chills or fever(s) Eyes Eyes: Denies blurry vision or change in vision ENT ENT ED: Denies rhinorrhea or sore throat Cardiovascular Cardiovascular: Reports chest pain and palpitations Respiratory/Chest Respiratory/Chest: Denies cough or dyspnea Gastrointestinal Gastrointestinal: Denies abdominal pain, nausea or vomiting Genitourinary Genitourinary ED: Denies dysuria or hematuria Musculoskeletal Musculoskeletal: Reports neck pain; Denies back pain Integumentary Denies abscess or rash Neurologic Neurologic: Denies headache(s) or weakness Allergic/Immunologic Allergic/Immunologic ED: Denies mouth swelling or urticaria EXAM Physical Exam Const Vital Signs: 01/18/23 13:45 01/18/23 14:43 01/18/23 14:47 Temperature 97.7 F L Temperature Source Oral Pulse Rate 79 76 84 Respiratory Rate 22 H Respiratory Effort Blood Pressure 127/92 H 112/80 118/89 H Blood Pressure Mean 103 Pulse Ox 98 Oxygen Delivery Method Room Air 01/18/23 14:52 01/18/23 14:52 Temperature Temperature Source Pulse Rate Respiratory Rate Respiratory Effort Normal Non-Labored Normal Non-Labored Blood Pressure Blood Pressure Mean Pulse Ox Oxygen Delivery Method Positive well nourished, well developed and obese General Appearance ED: well developed and NAD Nutritional Appearance: obese HEENT normocephalic and atraumatic Eyes PERRL and EOMs intact bilaterally Neck supple and no JVD Chest Wall palpation of chest normal Resp normal respiratory effort and clear to auscultation bilaterally Effort and Inspection: Negative for respiratory distress Cardio regular rate, regular rhythm and no murmurs GI normal to inspection, nondistended, normoactive bowel sounds, soft to palpation, non-tender and non-distended Extremity normal to inspection General Extremety ED: Negative for edema or tenderness General Extremity: Negative for edema Neuro oriented x3, CN's II-XII intact bilaterally and no sensory deficits noted Sensorium / Orientation: awake and alert Motor Exam: strength 5/5 throughout Psych mental status grossly normal Heart Score History: Slightly/Non-Suspicious ECG: Nonspecific Repolarization Age: </= 45 years Risk Factors: >/= 3 Risk Factors or History of CAD Score: 3 MDM MDM MDM Narrative Medical decision making narrative: Differential diagnosis includes cardiac dysrhythmia, cardiac ischemia, pneumonia , pneumothorax, pneumomediastinum, pulmonary embolism, and musculoskeletal chest pain. EKG will be obtained to assess for cardiac ischemia and cardiac dysrhythmia. Chest x-ray will be obtained to assess for pneumonia, pneumothorax, pneumomediastinum. CBC will be obtained to assess for leukocytosis and anemia. Basic metabolic profile will be obtained to assess for electrolyte abnormality and renal function. High-sensitivity troponin will be obtained to assess for cardiac ischemia. D-dimer will be obtained to assess for pulmonary embolism. Lab Data Attestation: I reviewed the patient's lab results. Lab results narrative: CBC was reviewed and was essentially within normal limits. Basic metabolic profile was reviewed. Glucose was elevated at 361. Anion gap was normal. Electrolytes were normal. D-dimer was reviewed and was normal. High- sensitivity troponin was reviewed and was normal at 3. Labs: Laboratory Results - last 24 hr 01/18/23 01/18/23 01/18/23 14:40 14:40 14:40 WBC 10.0 RBC 5.31 Hgb 15.9 H Hct 47.0 MCV 88.5 MCH 29.9 MCHC 33.8 RDW Std Deviation 39.9 RDW Coeff of Chang 12.3 Plt Count 234 MPV 11.5 Immature Gran % (Auto) 0.200 Neut % (Auto) 67.9 Lymph % (Auto) 22.6 [place] % (Auto) 7.7 Eos % (Auto) 1.0 Baso % (Auto) 0.6 Absolute Neuts (auto) 6.8 Absolute Lymphs (auto) 2.27 Nucleated RBC % 0 D-Dimer Quant (PE/DVT) 0.27 Sodium 134 L Potassium 4.2 Chloride 101 Carbon Dioxide 27.0 Anion Gap 6 BUN 8 Creatinine 0.62 Estim Creat Clear Calc 126.05 Est GFR (MDRD) Af Amer 138 Est GFR (MDRD) Non-Af 114 BUN/Creatinine Ratio 12.9 Glucose 361 H Calcium 9.0 Troponin I High Sens 3 Radiography Chest X-Ray - ED: 1 View, Read by ED Physician, Read by Radiologist and No Acute Disease Diagnostic Testing: Portable 1 view chest x-ray was obtained. On my independent interpretation, lung beck are clear. There is normal cardiac silhouette. Bony thorax is normal. There is no acute process noted. Radiologist also interpreted the x-ra y and agrees. EKG Initial EKG: Attestation: I personally reviewed and interpreted this EKG as follows: Interpretation: Sinus Rhythm (76) and Non-Specific ST Changes Comments: EKG was obtained. On my independent interpretation, it showed a normal sinus rhythm with a rate of 76. [place] interval, QRS interval, and QTc intervals were all normal. [place] was borderline at -23. There are nonspecific ST-T wave changes. Prior EKG tracings: available for review Prior: Unchanged (03/06/2018) Differential Diagnosis Chest pain/SOB: pulmonary embolism Reason(s) PE less likely: Positive for D- Dimer negative and not tachycardic, ACS ACS: Positive for no evidence of ACS based on cardiac biomarkers, pneumothorax Reason(s) pneumothorax less likely: Positive for bilateral breath sounds and [employer] withhout PTX, pneumonia Reason(s) pneumonia less likely: Positive for no infiltrate on CXR and no elevation in WBC count, aortic dissection Reason(s) Aortic dissection less likely:: Positive for normal vascular exam, normal neurological exam, no widened mediastinum on CXR, no ripping/tearing pain and blood pressure appropriate in ED and CHF Reason(s) CHF less likely: Positive for no significant peripheral edema, no orthopnea and no evidence of fluid overload on CXR Treatment and Re-Evaluation :: Patient was given aspirin and sublingual nitroglycerin here. Patient states her pain improved after sublingual nitroglycerin. Patient was advised of her sunny [place]. Patient has a HEART score of 3. Patient was advised that this is low risk for acute cardiac event. Patient was instructed to follow-up with her primary care physician in 5 to 7 days for further evaluation. Patient was advised she may need outpatient stress testing. Patient understands and is agreeable with the plan. All questions were answered. Discharge Plan Triage Chief Complaint: Palpitations ED Provider: Charlie Mills Dx/Rx/DC Orders Clinical Impression: Chest pain, Diabetes, Obesity (BMI 30-39.9) Instructions: ED Chest Pain, Uncertain Cause Prescriptions: No Action gabapentin 600 mg tablet 600 mg PO BID Label Comments: Take 1 Tablet By Oral Route 3 times per day olanzapine 10 mg tablet 10 mg PO DAILY Label Comments: Take 1 Tablet By Oral Route Per at bedtime prazosin 1 mg capsule 1 mg PO DAILY nadolol 40 MG tablet 40 mg PO BID Label Comments: BP furosemide 40 MG tablet 80 mg PO PRN PRN (Reason: Edema) Label Comments: DIURETIC metformin 500 MG tablet 1,000 mg PO BID Label Comments: DIABETIC MED dulaglutide 0.75 MG/0.5 ML pen injector 0.75 mg SQ QWEEK Primary Care Provider: Francesco Davila Referrals: Francesco Davila MD [Primary Care Provider] - 5-7 Days Disposition Disposition: Home, Self Care
[2023-01-18] MEDS: Aspirin 81 MG TAB.CHEW 324 MG PO (14:40)
[2023-01-18 14:43] VITALS: BP 112/80; PULSE 76
[2023-01-18] MEDS: Nitroglycerin SL (ED/IMG/CATH) 0.4 MG TABLET SL ×2 (14:43→14:47)
[2023-01-18 14:46] LABS: Absolute Lymphocyte Count 2.27 X10^3/uL (0.83-4.51); Absolute Neutrophil Count 6.8 X10^3/uL (2.0-7.7); Basophil# 0.06 X10^3/uL; Basophil% 0.6 % (0-1); Hemoglobin 15.9 g/dL (12.0-15.0); Lymphocyte # 2.27 X10^3/ul (0.83-4.51); Lymphocyte % 22.6 % (19-41); Mean Corp Hgb Conc 33.8 g/dL (32-36); Mean Corpuscular Hgb 29.9 pg (27.0-32.0); Mean Corpuscular Volume 88.5 fL (81-99); Mean Platelet Vol. 11.5 fl (6.2-12.0); Monocyte# 0.77 X10^3/uL; Monocyte% 7.7 % (0-10); NRBC Flagged by Analyzer 0 % (0-5); Neutrophil # 6.81 X10^3/uL (2.7-7.7); Neutrophil % 67.9 % (47-70); Platelet Count 234 K/mm3 (150-450); RBC Distribution Width CV 12.3 % (11.6-14.6); RBC Distribution Width SD 39.9 fl (35.1-43.9); Red Blood Count 5.31 M/mm3 (4.2-5.4)
[2023-01-18 14:47] VITALS: BP 118/89; PULSE 84
[2023-01-18 15:00] LABS: D-Dimer Quantitative (DVT/PE) 0.27 FEU/ug/m (0.27-0.49)
--- NOTE | 2023-01-18 15:00 | RAD_ITS ---
STUDY: X-RAY CHEST REASON FOR EXAM: Female, 42 years old. Chest pain TECHNIQUE: Single AP portable view of the chest. COMPARISON: Comparison is made with prior study dated March 05, 2018. FINDINGS: EKG electrodes are seen. The lungs are clear and expanded. There is no demonstrated pleural abnormality. Normal size heart. Normal mediastinum and macey. Normal visualized pulmonary arteries. Normal visualized aortic arch and descending thoracic aorta. There are degenerative changes of the visualized thoracic spine. Normal visualized ribs, clavicles, and shoulders. There is no demonstrated abnormality of the visualized soft tissue structures of the upper abdomen. RAD/Chest 1 View (Portable) IMPRESSION: Normal x-ray examination of the chest. Electronically Signed: Azam Tamez MD at 15:17 EST ,
[2023-01-18 15:03] LABS: Anion Gap 6 (5-15); BUN 8 mg/dL (7-18); BUN/Creat Ratio 12.9 RATIO (10-20); Chloride 101 mmol/L (98-107); Creatinine, Serum 0.62 mg/dL (0.55-1.02); EST Glomerular Filtration Rate 114 mL/min (>60); Est Glom Filt Rate - Afr Amer 138 mL/min (>60); Estimated Creatinine Clearance 126.05 ml/min; Glucose 361 mg/dL (74-106); Potassium 4.2 mmol/L (3.5-5.1); Sodium Level 134 mmol/L (136-145); Troponin-I HS 3 pg/mL (3.0-54.0)
[2023-01-18 15:25] VITALS: BP 124/86; PULSE 83
== END 2023-01-18 15:31 | disposition home or self-care (01) ==
PROVIDERS: Emergency Provider Emergency Medicine; PCP Family Medicine; Visit Provider Emergency Medicine
DX: R07.9 Chest pain, unspecified (principal); E11.9 Type 2 diabetes mellitus without complications; E66.9 Obesity, unspecified; Z79.899 Other long term (current) drug therapy; Z79.84 Long term (current) use of oral hypoglycemic drugs
CPT/HCPCS: 71045; 80048; 84484; 85025; 85379; 93005; 99285; A4216

== ENCOUNTER → 2023-01-27 | Outpatient (CLI) | payer MEDICAID, SELFPAY ==
[2023-01-27 17:37] LABS: BNP,B-Type NATRIURETIC PEPTIDE 8.7 pg/mL (0-100)
[2023-01-27 18:08] LABS: D-Dimer Quantitative (DVT/PE) 0.27 FEU/ug/m (0.27-0.49)
== END | disposition home or self-care (01) ==
LOC: LABSPEC 16:51
PROVIDERS: PCP Family Medicine; Visit Provider Family Medicine
DX: R07.9 Chest pain, unspecified (principal); R06.09 Other forms of dyspnea
CPT/HCPCS: 83880; 85379

== ENCOUNTER → 2024-08-09 | Outpatient (CLI) | payer MEDICAID, SELFPAY ==
[2024-08-09 15:13] LABS: Absolute Lymphocyte Count 2.81 X10^3/uL (0.83-4.51); Absolute Neutrophil Count 6.4 X10^3/uL (2.0-7.7); Basophil# 0.04 X10^3/uL; Basophil% 0.4 % (0-1); Eosinophil# 0.09 X10^3/uL; Eosinophils% 0.9 % (0-5); Hematocrit 46.6 % (37-47); Hemoglobin 15.4 g/dL (12.0-15.0); Lymphocyte # 2.81 X10^3/ul (0.83-4.51); Lymphocyte % 27.5 % (19-41); Mean Corpuscular Hgb 30.7 pg (27.0-32.0); Monocyte# 0.86 X10^3/uL; Monocyte% 8.4 % (0-10); NRBC Flagged by Analyzer 0 % (0-5); Neutrophil % 62.5 % (47-70); Platelet Count 260 K/mm3 (150-450); RBC Distribution Width CV 12.5 % (11.6-14.6); RBC Distribution Width SD 43.1 fl (35.1-43.9); Red Blood Count 5.01 M/mm3 (4.2-5.4); White Blood Count 10.2 K/mm3 (4.4-11.0)
[2024-08-09 16:04] LABS: ALB/GLOB Ratio 0.8 RATIO (0.9-2.4); AST(SGOT) 65 U/L (15-37); Alanine Aminotransfer ALT/SGPT 71 U/L (13-56); Albumin, Serum 3.6 g/dL (3.2-5.0); Alkaline Phosphatase 90 U/L (45-117); Anion Gap 7 (5-15); BUN 9 mg/dL (7-18); BUN/Creat Ratio 13.2 RATIO (10-20); Calcium,Total 9.7 mg/dL (8.5-10.1); Chloride 99 mmol/L (98-107); Cholesterol 210 mg/dL (200); Creatinine, Serum 0.68 mg/dL (0.55-1.02); EST Glomerular Filtration Rate 101 mL/min (>60); Est Glom Filt Rate - Afr Amer 122 mL/min (>60); Globulin 4.4 g/dL (2.2-4.2); Glucose 204 mg/dL (74-106); High Density Lipoprotein 34 mg/dL; Sodium Level 135 mmol/L (136-145); Triglycerides 474 mg/dL
== END | disposition home or self-care (01) ==
LOC: BIMLAB 13:42
PROVIDERS: PCP Internal Medicine; Referring Provider Internal Medicine; Visit Provider Internal Medicine
DX: E11.9 Type 2 diabetes mellitus without complications (principal)
CPT/HCPCS: 36415; 80053; 80061; 85025

== ENCOUNTER → 2024-08-24 | Outpatient (CLI) | payer MEDICAID, SELFPAY ==
--- NOTE | 2024-08-24 10:17 | US_ITS ---
EXAM: US ABDOMEN LIMITED, RIGHT UPPER QUADRANT CLINICAL INDICATION: elevated liver enzymes TECHNIQUE: Real-time ultrasound of the right upper quadrant with image documentation. COMPARISON: No relevant prior studies available. FINDINGS: LIVER: Mildly echogenic and mildly enlarged at 20 cm in length No focal hepatic lesion. Minimal low attenuation deep in the sophia is likely focal fatty sparing. Visualized main portal vein with normal direction of flow. No intrahepatic biliary ductal dilation. GALLBLADDER: Removed. COMMON BILE DUCT: 6 mm at the sophia. Unremarkable as visualized. The proximal common bile duct is within normal limits for the patient''s age. PANCREAS: Mildly echogenic proximal to mid body of the pancreas. The head and tail are not well seen. No focal abnormality is demonstrated in the pancreas. No pancreatic ductal dilatation. RIGHT KIDNEY: Unremarkable. 13.3 cm x 5.2 cm x 5.4 cm. There is no hydronephrosis. No shadowing calculus. No focal lesion or perinephric collection is demonstrated. US/Liver IMPRESSION: Hepatomegaly and mildly echogenic fatty liver. Incompletely visualized pancreas. Cholecystectomy. No duct dilatation. Electronically Signed: Ruby Rashid MD at 2:09 EDT ,
== END | disposition home or self-care (01) ==
LOC: US 10:16
PROVIDERS: PCP Internal Medicine; Referring Provider Internal Medicine; Visit Provider Internal Medicine
DX: R74.8 Abnormal levels of other serum enzymes (principal)
CPT/HCPCS: 76705

== ENCOUNTER → 2025-01-15 | Outpatient (CLI) | payer MEDICAID, SELFPAY | END | disposition home or self-care (01) | LOC: BIMLAB 13:16 | PROVIDERS: PCP Internal Medicine; Referring Provider Internal Medicine; Visit Provider Internal Medicine | DX: Z00.00 Encounter for general adult medical examination without abnormal findings (principal) | CPT/HCPCS: 36415 ==

== ENCOUNTER → 2025-02-21 | Outpatient (CLI) | payer MEDICAID, SELFPAY | END | disposition home or self-care (01) | PROVIDERS: PCP Internal Medicine; Referring Provider Otolaryngology; Visit Provider Otolaryngology | DX: T78.40XA Allergy, unspecified, initial encounter (principal) | CPT/HCPCS: 36415; 86003 ==

== ENCOUNTER → 2025-03-18 | Outpatient (CLI) | payer MEDICAID, SELFPAY ==
[2025-03-18 16:07] LABS: Absolute Lymphocyte Count 3.79 X10^3/uL (0.83-4.51); Absolute Neutrophil Count 6.2 X10^3/uL (2.0-7.7); Basophil# 0.08 X10^3/uL; Basophil% 0.7 % (0-1); Eosinophil# 0.12 X10^3/uL; Hemoglobin 15.3 g/dL (12.0-15.0); Lymphocyte # 3.79 X10^3/ul (0.83-4.51); Mean Corpuscular Hgb 31.5 pg (27.0-32.0); Mean Corpuscular Volume 92.6 fL (81-99); Mean Platelet Vol. 11.4 fl (6.2-12.0); Monocyte# 1.21 X10^3/uL; Monocyte% 10.5 % (0-10); NRBC Flagged by Analyzer 0 % (0-5); Neutrophil # 6.23 X10^3/uL (2.7-7.7); Neutrophil % 54.4 % (47-70); Platelet Count 272 K/mm3 (150-450); RBC Distribution Width CV 12.8 % (11.6-14.6); RBC Distribution Width SD 43.5 fl (35.1-43.9); Red Blood Count 4.86 M/mm3 (4.2-5.4); White Blood Count 11.5 K/mm3 (4.4-11.0)
[2025-03-18 16:32] LABS: AST(SGOT) 73 U/L (<=31); Alanine Aminotransfer ALT/SGPT 64 U/L (<=34); Alkaline Phosphatase 101 U/L (35-104); BUN 9 mg/dL (4-19); Creatinine, Serum 0.54 mg/dL (0.70-1.20); EST Glomerular Filtration Rate 118 (>60)
== END | disposition home or self-care (01) ==
PROVIDERS: PCP Internal Medicine
DX: Z79.899 Other long term (current) drug therapy (principal); M19.90 Unspecified osteoarthritis, unspecified site
CPT/HCPCS: 36415; 82565; 84075; 84450; 84460; 84520; 85025

== ENCOUNTER → 2025-06-12 | Outpatient (CLI) | payer MEDICAID, SELFPAY ==
--- NOTE | 2025-06-12 16:34 | RAD_ITS ---
PROCEDURE: HIP, UNI W/ PELVIS 2-3 VIEWS 06/12/2025 REASON FOR EXAM: S/P FALL RIGHT HIP/GROIN PAIN TECHNIQUE: HIP, UNI W/ PELVIS 2-3 VIEWS COMPARISON: None RAD/HIP, UNI W/ Pelvis 2-3 Views IMPRESSION: Prominent degenerative changes are seen of the visualized lower lumbar spine. Minimal to mild sacroiliac joint degenerative changes are noted. Mild degenerative changes are seen of the bilateral hip joints. No evidence of femoral head osteonecrosis. No acute fracture or dislocation is seen. If clinical concern persists, short-term follow-up imaging may be obtained to r ule out a currently occult fracture. Reading Location: [place] [id number]
== END | disposition home or self-care (01) ==
LOC: RAD 16:28
PROVIDERS: PCP Internal Medicine; Referring Provider Nurse Practitioner Family; Visit Provider Nurse Practitioner Family
DX: R10.30 Lower abdominal pain, unspecified (principal)
CPT/HCPCS: 73502

== ENCOUNTER → 2025-07-04 | Outpatient (CLI) | payer MEDICAID, SELFPAY ==
--- NOTE | 2025-07-04 15:33 | US_ITS ---
PROCEDURE: TRANSVAGINAL NON- 07/04/2025 REASON FOR EXAM: RLQ PAIN Status post hysterectomy. TECHNIQUE: TRANSVAGINAL NON- COMPARISON: None FINDINGS: Measurements: Uterus: Status post hysterectomy. Right Ovary: 3.6 cm x 2.4 cm x 2.6 cm with a volume of 11.73 mL. Left Ovary: 6.2 cm x 6.4 cm x 5.3 cm with a volume of 110.74 mL. Right ovary: Normal size and echotexture. Left ovary: There is a 5.4 cm x 5.4 cm x 3.9 cm complex cystic mass in the left ovary. This may represent an endometrioma. Clinical correlation recommended. Other: No free fluid. US/Transvaginal Non- IMPRESSION: 5.4 cm x 5.4 cm x 3.9 cm complex mass in the left ovary as discussed. Clinical correlation recommended. Status post hysterectomy. Reading Location: [facility]
== END | disposition home or self-care (01) ==
LOC: US 15:32
PROVIDERS: PCP Internal Medicine; Referring Provider Nurse Practitioner Family; Visit Provider Nurse Practitioner Family
DX: R10.2 Pelvic and perineal pain (principal)
CPT/HCPCS: 76830

== ENCOUNTER 2025-07-17 11:17 | Emergency (ER) | payer MEDICAID, SELFPAY ==
[2025-07-17 11:17] VITALS: BP 133/98; PULSE 87; RESP 18; TEMP 36.4; O2SAT 100; BMI 35.7
--- NOTE | 2025-07-17 11:31 | US_ITS ---
PROCEDURE: TRANSVAGINAL NON- 07/17/2025 REASON FOR EXAM: ABDOMINAL PAIN, LEFT OVARIAN MASS TECHNIQUE: Procedure Code: USTVAG Modality: US Procedure: TRANSVAGINAL NON- COMPARISON: July 17, 2025, July 04, 2025 FINDINGS: Measurements: Right Ovary: 4.6 x 2.8 x 3.1 cm. Left Ovary: 4.3 x 2.4 x 3.5 cm. Uterus: Hysterectomy Endometrium: Not applicable Right ovary: Unremarkable. Color and spectral Doppler was not performed on the right. Left ovary: Complex left ovarian mass no longer seen. Color and spectral Doppler is present. Other: No free fluid US/Transvaginal Non- IMPRESSION: 1. Hysterectomy 2. Complex left ovarian mass is no longer seen. This was likely a hemorrhagic cyst that has resolved. Reading Location: [id number]
--- NOTE | 2025-07-17 11:32 | EDS_ITS ---
HPI HPI - GI History of Present Illness Chief Complaint: Abd Pain Detail of Chief Complaint: Abdominal pain Informant: patient Narrative Narrative: Patient presents to the emergency department with complaint of abdominal pain that started about 24 hours ago. Patient states that she has history of a left ovarian mass and is scheduled to follow-up with [facility] in a few weeks. She had some mild nausea. Describes lower abdomen pain. Denies vomiting. Denies fever. Denies urinary symptoms. Patient has had prior hysterectomy as well as prior appendectomy and prior cholecystectomy. [facility] Medical History (Updated 07/17/25 @ 12:[address] Joey Hernández, DO) Back problem Kidney stone PCOS (polycystic ovarian syndrome) Rheumatoid arthritis Bursitis of left shoulder MVP (mitral valve prolapse) Celiac disease Lupus Carpal tunnel syndrome Diabetes Pulmonary hypertension Hyperlipidemia Home Medications ?Medication ?Instructions ?Recorded ?Last Taken ?Type blood-glucose meter (Accu-Chek #1 ea 05/08/24 Unknown Rx Guide Glucose Meter) lancets (Accu-Chek Fastclix Lancet #100 ea 05/08/24 Un known Rx Drum) ondansetron HCl 4 mg tablet 4 mg PO QDAY PRN 01/09/25 Unknown History desvenlafaxine succinate 100 mg 100 mg PO DAILY #30 ta bs 01/13/25 Unknown Rx tablet,extended release 24 hr adalimumab 40 mg/0.4 mL 40 mg subcut Q2W 05/01/25 Un known History subcutaneous syringe kit (Humira(CF)) blood sugar diagnostic (Accu-Chek #100 ea 05/14/25 Unk nown Rx Nathalie Plus test strips) cyclobenzaprine 5 mg tablet 5 mg PO TID PRN muscle spa sm #30 06/05/25 Unknown Rx tabs nadolol 40 mg tablet 40 mg PO QDAY #90 tabs 06/23 Unknown Rx gabapentin 600 mg tablet 300 mg PO QHS 06/26/25 Unkno wn History metformin 500 mg tablet,extended 1,000 mg PO BID 06/26 Unknown History release 24 hr mirtazapine 30 mg tablet 30 mg PO QHS 06/26/25 Unknow n History prazosin 1 mg capsule 3 mg PO QHS 06/26/25 Unknown History dulaglutide 3 mg/0.5 mL 3 mg (0.5 mL) subcut QWEEK # 2 mL 07/01/25 Unknown Rx subcutaneous pen injector empagliflozin 25 mg tablet 25 mg PO DAILY #90 tabs Unknown Rx tramadol 50 mg tablet 50 mg PO Q8H PRN pain (scale score 07/11/25 Unknown Rx 7-10) #21 tabs hydrocodone-acetaminophen 5-325mg 1 tab PO Q4H PRN PRN Pain 2 days 07/17/25 Unknown Rx 5mg-325mg #10 TABLETS Allergy/AdvReac Type Severity Reaction Status Date / Time hydroxychloroquine (From Allergy Intermediate GI issues Verified 07/17/25 11:17 Plaquenil) adhesive tape (paper tape) Allergy Other Verified 07/17/25 11:17 ketorolac tromethamine (From Allergy Shortness Verified 07/17/25 11:17 Toradol) of breath naproxen sodium (From Aleve) Allergy Shortness Verified 07/17/25 11:17 of breath Penicillins Allergy Rash Verified 07/17/25 11:17 Family History Mother Autoimmune disease lupus Parkinson disease Hypertension Grandfather Colon cancer Father Hypertension Myocardial infarction, Onset Age: 51 Grandmother Breast cancer Sister Crohn's disease Surgical History (Updated 06/26/25 @ 14:49 by Lainey Ulloa MA) S/P partial hysterectomy H/O lateral meniscus repair of right knee History of carpal tunnel surgery Hx of reduction mammoplasty Hx of appendectomy Hx of cholecystectomy Social History adopted: No household members: family current occupational status: unemployed pets and animals: Yes (2) pets and animals: cat(s) sexually active: No Smoking Status: Former smoker quit date: 11/13/13 pack-years: 15 Tobacco: How many years used: 20 Electronic Cigarette Use: not used alcohol intake: never substance use type: does not use diet: gluten free caffeine: Yes (1) Type: coffee frequency: does not exercise seatbelt use: always do you feel safe at home: Yes ROS ROS ED Review of Systems ROS Unobtainable: other Constitutional Constitutional ED: Reports lethargy; Denies chills, fever(s), sweats or weight loss Eyes Eyes: Denies blurry vision, change in vision or diplopia ENT ENT ED: Denies rhinorrhea or sore throat Cardiovascular Cardiovascular: Denies chest pain, orthopnea or racing heartbeat Respiratory/Chest Respiratory/Chest: Denies cough, dyspnea, dyspnea on exertion, orthopnea or sputum Gastrointestinal Gastrointestinal: Reports abdominal pain and nausea; Denies diarrhea or vomiting Genitourinary Genitourinary ED: Denies dysuria, hematuria or urinary frequency Musculoskeletal Musculoskeletal: Denies arthralgias, back pain, myalgias or neck pain Integumentary Denies abscess, Abrasions or rash Neurologic Neurologic: Denies headache(s) or weakness Psychiatric Psychiatric: Denies anxiety, depression or suicidal thoughts Endocrine Endocrinology: Denies polydipsia, polyphagia or polyuria Hematologic/Lymphatic Hematologic/Lymphatic: Denies easy bleeding, easy bruising or lymphadenopathy Allergic/Immunologic Allergic/Immunologic ED: Denies mouth swelling, tongue swelling or urticaria EXAM Physical Exam Const Vital Signs: 07/17/25 11:17 Temperature 97.5 F L Temperature Source Oral Pulse Rate 87 Respiratory Rate 18 Blood Pressure 133/98 H Blood Pressure Mean 109 Pulse Ox 100 Positive well nourished and well developed General Appearance ED: well developed and NAD HEENT Reports TM's clear and moist mucous membranes normocephalic and atraumatic; Negative for trauma or tenderness Tympanic Membrane ED: Yes TM's clear Eyes PERRL and EOMs intact bilaterally General Eye ED: Negative for pale conjunctiva or scleral icterus Neck no lymphadenopathy, supple and no JVD General: Negative for tenderness Chest Wall inspection of chest normal and palpation of chest normal Chest: Negative for tenderness Resp normal respiratory effort and clear to auscultation bilaterally Effort and Inspection: Negative for respiratory distress or pain with movement Auscultation: Negative for rhonchi, wheezes or diminished lung sounds Cardio regular rate, regular rhythm, S1 normal heart sound, S2 normal heart sound and no murmurs Peripheral Pulses: pulses 2+ throughout GI normal to inspection, nondistended, normoactive bowel sounds, soft to palpation, non-distended and no masses GI Narrative: Diffuse tenderness palpation over lower abdomen. No masses palpated however patient has large body habitus and difficult exam. There is no rebound, rigidity, no peritoneal signs Back/Spine no CVA tenderness and no thoracic nor lumbar tenderness Extremity normal to inspection General Extremety ED: Negative for edema General Extremity: Negative for edema Neuro oriented x3, CN's II-XII intact bilaterally, no sensory deficits noted and gait normal Sensorium / Orientation: awake, alert, oriented to person, oriented to place and oriented to time Motor Exam: strength 5/5 throughout and strength abnormal Psych mental status grossly normal Skin no rashes or lesions noted and no wounds MDM MDM MDM Narrative Medical decision making narrative: Patient presents the emergency department with abdominal pain with known history of a left ovarian mass awaiting follow-up with [facility]. Clinically she looks well. Pain exacerbated over the last 24 hours. In differential would be torsion versus other acute process such as kidney stone or UTI or diverticulitis. Less likely bowel obstruction in the differential. Established. She was medicated with morphine and Zofran. CBC with differential obtained showed white count 8.3 with hemoglobin 16 and platelet count of 255. Urinalysis was normal without signs of infection. CT scan of the abdomen pelvis showed no acute process. Pelvic ultrasound noted hysterectomy and complex left ovarian mass no longer seen. This was likely a hemorrhagic cyst. No sign of torsion. Lab Data Attestation: I reviewed the patient's lab results. Labs: Laboratory Results - last 24 hr 07/17/25 07/17/25 11:36 11:41 WBC 8.3 RBC 5.36 Hgb 16.4 H Hct 48.0 H MCV 89.6 MCH 30.6 MCHC 34.2 RDW Std Deviation 40.0 RDW Coeff of Chang 12.3 Plt Count 255 MPV 11.6 Immature Gran % (Auto) 0.100 Neut % (Auto) 55.3 Lymph % (Auto) 31.5 [place] % (Auto) 11.1 H Eos % (Auto) 1.3 Baso % (Auto) 0.7 Absolute Neuts (auto) 4.6 Absolute Lymphs (auto) 2.62 Nucleated RBC % 0 Urine Color Yellow Urine Clarity Clear Urine pH 6.0 Ur Specific [place] 1.020 Urine Protein 30 H Urine Glucose (UA) 1000 H Urine Ketones 5 H Urine Occult Blood Negative Urine Nitrite Negative Urine Bilirubin Negative Urine Urobilinogen Normal Ur Leukocyte Esterase 25 H Urine RBC 0-5 SEEN Urine WBC 0-5 SEEN Ur Squamous Epith Cells 0-5 SEEN Urine Bacteria 0 SEEN Urine Mucus 0 SEEN Radiography Diagnostic Testing: Clinical Impression(s) from Imaging Studies Transvaginal US 09/04/25 11:31 IMPRESSION: 1. Hysterectomy 2. Complex left ovarian mass is no longer seen. This was likely a hemorrhagic cyst that has resolved. Reading Location: [id number] Abdomen/Pelvis CT 07/17/25 11:48 IMPRESSION: Borderline hepatomegaly. Status post cholecystectomy and appendectomy. No acute abnormality is seen. Reading [id number] Dis[facility] Triage Chief Complaint: Abd Pain ED Provider: Joey Hernández Dx/Rx/DC Orders Clinical Impression: Abdominal pain Instructions: ED Abdominal Pain Unkn Cause Fem Prescriptions: New hydrocodone-acetaminophen 5-325 mg tablet 1 tab PO Q4H PRN PRN (Reason: Pain) 2 Days Qty: 10 0RF No Action gabapentin 600 mg tablet 300 mg PO QHS Rx Instructions: 300mg qhs (DME) blood-glucose meter [Accu-Chek Guide Glucose Meter] Misc See Rx Instructions .Route Qty: 1 0RF Rx Instructions: As directed (DME) lancets [Accu-Chek Fastclix Lancet Drum] Misc See Rx Instructions .Route Qty: 100 0RF Rx Instructions: As directed ondansetron HCl 4 mg tablet 4 mg PO QDAY PRN Humira(CF) 40 mg/0.4 mL syringe kit 40 mg subcut Q2W metformin 500 mg tablet extended release 24 hr 1,000 mg PO BID Rx Instructions: 2000mg daily prazosin 1 mg capsule 3 mg PO QHS Rx Instructions: 3mgs mirtazapine 30 mg tablet 30 mg PO QHS desvenlafaxine succinate 100 mg tablet extended release 24 hr 100 mg PO DAILY Qty: 30 0RF (DME) Accu-Chek Nathalie Plus test strp Strip See Rx Instructions .Route Qty: 100 0RF Rx Instructions: As directed 1-2 times per day cyclobenzaprine 5 mg tablet 5 mg PO TID PRN (Reason: muscle spasm) Qty: 30 0RF nadolol 40 mg tablet 40 mg PO QDAY Qty: 90 0RF empagliflozin 25 mg tablet 25 mg PO DAILY Qty: 90 1RF dulaglutide 3 mg/0.5 mL pen injector 3 mg subcut QWEEK Qty: 2 1RF tramadol 50 mg tablet 50 mg PO Q8H PRN (Reason: pain (scale score 7-10)) Qty: 21 0RF Primary Care Provider: Tracy Ware Referrals: Tracy Ware MD [Primary Care Provider] - Activity Restrictions/Additional Instructions: Keep your appointment with your [facility]. Print Language: [place] Disposition Disposition: Home, Self Care
[2025-07-17 11:44] LABS: Hematocrit 48.0 % (37-47); Hemoglobin 16.4 g/dL (12.0-15.0); Immature Granulocytes Count 0.010 X10^3/uL (0.0-0.0); Mean Corp Hgb Conc 34.2 g/dL (32-36); Mean Corpuscular Volume 89.6 fL (81-99); Mean Platelet Vol. 11.6 fl (6.2-12.0); NRBC Flagged by Analyzer 0 % (0-5); Platelet Count 255 K/mm3 (150-450); RBC Distribution Width CV 12.3 % (11.6-14.6); RBC Distribution Width SD 40.0 fl (35.1-43.9); Red Blood Count 5.36 M/mm3 (4.2-5.4); White Blood Count 8.3 K/mm3 (4.4-11.0)
[2025-07-17 11:48] LABS: Mucous, Urine 0 SEEN /hpf (<or=2+)
--- NOTE | 2025-07-17 11:48 | CT_ITS ---
PROCEDURE: ABDOMEN/PELVIS WITHOUT CONT 07/17/2025 REASON FOR EXAM: ABDOMINAL PAIN 1-1/2 month history of abdominal pain. TECHNIQUE: Procedure Code: CTABDPEL Modality: CT Procedure: ABDOMEN/PELVIS WITHOUT CONT Noncontrast technique limits evaluation of the abdominal and pelvic viscera. Coronal and Sagittal reconstruction series were provided. One or more dose reduction techniques were used (e.g., Automated exposure control, adjustment of the mA and/or kV according to patient size, use of iterative reconstruction technique). RADIATION DOSE SUMMARY: CTDlvol: 22.39 mGy DLP: 1309.22 mGycm COMPARISON: None FINDINGS: Lung bases: The lung bases are clear. No coronary artery calcification seen. Liver: Borderline hepatomegaly. Gallbladder: Prior cholecystectomy. Spleen: Normal size. Pancreas: Normal size. No surrounding inflammation. Adrenals: Unremarkable. Kidneys: No urolithiasis. No hydronephrosis. Bladder: The urinary bladder is empty. Reproductive Organs: Prior hysterectomy. Adnexal regions are unremarkable. Bowel: Unremarkable Appendix: Prior appendectomy. Lymph nodes: Unremarkable. Vasculature: Mild diffuse atherosclerotic calcifications are noted. Peritoneum / Retroperitoneum: Unremarkable Bones: Degenerative changes of the spine. CT/Abdomen/Pelvis without Cont IMPRESSION: Borderline hepatomegaly. Status post cholecystectomy and appendectomy. No acute abnormality is seen. [id number]
[2025-07-17 11:50] LABS: Color, Urine Yellow (Yellow); Glucose, Dipstick 1000 mg/dl (Normal); Ketone-Dipstick 5 mg/dl (Negative); Leukocyte Esterase-Dipstick 25 /ul (Negative); Nitrite-Dipstick Negative (Negative); Occult Blood-Urine Negative /ul (Negative); Protein-Dipstick 30 mg/dl (Negative); Specific Gravity, Urine 1.020 (1.002-1.030); Urine Bilirubin Dipstick Negative (Negative)
[2025-07-17 12:09] LABS: Red Blood Cells-Urine 0-5 SEEN /hpf (0-5); Squamous Epithelial Cells - UA 0-5 SEEN /hpf (5-10)
[2025-07-17 12:59] VITALS: BP 133/98; PULSE 87; RESP 18; TEMP 36.4; O2SAT 100
[2025-07-17 13:07] LABS: Anion Gap 13 (5-15); BUN 12 mg/dL (4-19); BUN/Creat Ratio 21.0 RATIO (10-20); Calcium,Total 9.6 mg/dL (7.6-11.0); Carbon Dioxide 27.0 mmol/L (21.0-32.0); Chloride 96 mmol/L (98-108); Estimated Creatinine Clearance 172.77 ml/min (50-250); Glucose 275 mg/dL (70-99); Potassium 4.5 mmol/L (3.3-5.1)
[2025-07-17 15:39] LABS: Reflex Lactate? Y
== END 2025-07-17 13:17 | disposition home or self-care (01) ==
PROVIDERS: Emergency Provider Emergency Medicine; PCP Internal Medicine; Visit Provider Emergency Medicine
DX: R10.30 Lower abdominal pain, unspecified (principal); M06.9 Rheumatoid arthritis, unspecified; E11.9 Type 2 diabetes mellitus without complications; R11.0 Nausea; K90.0 Celiac disease; E28.2 Polycystic ovarian syndrome; Z79.84 Long term (current) use of oral hypoglycemic drugs; Z79.85 Long-term (current) use of injectable non-insulin antidiabetic drugs; Z90.710 Acquired absence of both cervix and uterus; Z90.49 Acquired absence of other specified parts of digestive tract; Z79.899 Other long term (current) drug therapy; Z87.891 Personal history of nicotine dependence
CPT/HCPCS: 74176; 76830; 80048; 81001; 83605; 85025; 96374; 96375; 96376; 99282; A4216; J2405

== ENCOUNTER 2025-08-05 12:38 | Emergency (ER) | payer MEDICAID, SELFPAY ==
[2025-08-05 12:39] VITALS: BP 129/93; PULSE 85; RESP 16; TEMP 36.8; O2SAT 100; BMI 35.6
--- NOTE | 2025-08-05 13:21 | CT_ITS ---
PROCEDURE: ABDOMEN/PELVIS WITHOUT CONT 08/05/2025 REASON FOR EXAM: RLQ PAIN, HX APPENDECTOMY, HX OVARIAN CYST TECHNIQUE: Procedure Code: CTABDPEL Modality: CT Procedure: ABDOMEN/PELVIS WITHOUT CONT Noncontrast technique limits evaluation of the abdominal and pelvic viscera. Coronal and Sagittal reconstruction series were provided. One or more dose reduction techniques were used (e.g., Automated exposure control, adjustment of the mA and/or kV according to patient size, use of iterative reconstruction technique). RADIATION DOSE SUMMARY: CTDlvol: 22.8 mGy DLP: 1270.09 mGycm COMPARISON: CT abdomen and pelvis FINDINGS: Lung bases: Clear. Liver: Unremarkable. Gallbladder: Status post cholecystectomy. Spleen: Unremarkable. Pancreas: Unremarkable. Adrenals: Unremarkable. Kidneys: No hydronephrosis or nephrolithiasis. Bladder: Decompressed. Reproductive Organs: Unremarkable. Bowel: No bowel wall obstruction. No bowel wall thickening. Appendix: Unremarkable. Lymph nodes: No lymphadenopathy. Vasculature: No aneurysm. Peritoneum / Retroperitoneum: No free air or free fluid. Bones: No acute bony abnormalities. CT/Abdomen/Pelvis without Cont IMPRESSION: No acute abdominopelvic abnormalities. Reading Location: [facility]
--- NOTE | 2025-08-05 13:23 | EDS_ITS ---
HPI HPI - GI History of Present Illness Chief Complaint: Abd Pain Detail of Chief Complaint: Abdominal pain Informant: patient Narrative Narrative: Patient presents to the emergency department complaint of abdominal pain that started gradually around 2 AM. Describes pain in the right lower abdomen. She has had similar pain in the past with history of ovarian cysts. She was seen by myself in the emergency department on July 22 with similar type pain. At that time she was going to follow-up with [facility]ICATION [facility]IDE as she initially had been diagnosed with a right ovarian mass however on our investigation in the [facility] department at that time it was noted that her mass had resolved and at that time she had CT scan of the abdomen pelvis as well as a pelvic ultrasound to rule out torsion. It was felt at that time she may have had a complex hemorrhagic cyst that had resolved. Patient states that her pain eventually resolved and she had been doing well since that time until last evening. She denies urinary symptoms. She does have history of kidney stones. Pain does not radiate to her back. She has had no fever. PFSH [facility] Medical History (Updated 08/05/25 @ 15:[address] Joey Hernández, ) Ovarian mass, left Back problem Kidney stone PCOS (polycystic ovarian syndrome) Rheumatoid arthritis Bursitis of left shoulder MVP (mitral valve prolapse) Celiac disease Lupus Carpal tunnel syndrome Diabetes Pulmonary hypertension Hyperlipidemia Home Medications ?Medication ?Instructions ?Recorded ?Last Taken ?Type blood-glucose meter (Accu-Chek #1 ea 05/08/24 Unknown Rx Guide Glucose Meter) lancets (Accu-Chek Fastclix Lancet #100 ea 05/08/24 Un known Rx Drum) ondansetron HCl 4 mg tablet 4 mg PO QDAY PRN 01/09/25 Unknown History desvenlafaxine succinate 100 mg 100 mg PO DAILY #30 ta bs 01/13/25 Unknown Rx tablet,extended release 24 hr adalimumab 40 mg/0.4 mL 40 mg subcut Q2W 05/01/25 Un known History subcutaneous syringe kit (Humira(CF)) blood sugar diagnostic (Accu-Chek #100 ea 05/14/25 Unk nown Rx Nathalie Plus test strips) cyclobenzaprine 5 mg tablet 5 mg PO TID PRN muscle spa sm #30 06/05/25 Unknown Rx tabs nadolol 40 mg tablet 40 mg PO QDAY #90 tabs 06/23 Unknown Rx mirtazapine 30 mg tablet 30 mg PO QHS 06/26/25 Unknow n History prazosin 1 mg capsule 3 mg PO QHS 06/26/25 Unknown History empagliflozin 25 mg tablet 25 mg PO DAILY #90 tabs Unknown Rx bacitracin 500 unit/gram topical 1 applic topical TID 10 days #144 07/31/25 Unknown Rx packet ea dulaglutide 4.5 mg/0.5 mL 4.5 mg (0.5 mL) subcut QWEEK #2 mL 07/31/25 Unknown Rx subcutaneous pen injector hydrocodone-acetaminophen 5-325mg 1 tab PO Q4H PRN PRN Pain 2 days 08/05/25 Unknown Rx 5mg-325mg #10 TABLETS metformin 500 mg tablet,extended 1,000 mg (2 x 500 mg) PO BID #360 08/05/25 Unknown Rx release 24 hr tabs Allergy/AdvReac Type Severity Reaction Status Date / Time hydroxychloroquine (From Allergy Intermediate GI issues Verified 08/05/25 12:42 Plaquenil) adhesive tape (paper tape) Allergy Other Verified 08/05/25 12:42 ketorolac tromethamine (From Allergy Shortness Verified 08/05/25 12:42 Toradol) of breath naproxen sodium (From Aleve) Allergy Shortness Verified 08/05/25 12:42 of breath Penicillins Allergy Rash Verified 08/05/25 12:42 Family History Mother Autoimmune disease lupus Parkinson disease Hypertension Grandfather Colon cancer Father Hypertension Myocardial infarction, Onset Age: 51 Grandmother Breast cancer Sister Crohn's disease Surgical History S/P partial hysterectomy H/O lateral meniscus repair of right knee History of carpal tunnel surgery Hx of reduction mammoplasty Hx of appendectomy Hx of cholecystectomy Social History adopted: No household members: family current occupational status: unemployed pets and animals: Yes (2) pets and animals: cat(s) sexually active: No Smoking Status: Former smoker quit date: 11/13/13 pack-years: 15 Tobacco: How many years used: 20 Electronic Cigarette Use: not used alcohol intake: never substance use type: does not use diet: gluten free caffeine: Yes (1) Type: coffee frequency: does not exercise seatbelt use: always do you feel safe at home: Yes ROS ROS ED Review of Systems ROS Unobtainable: other Constitutional Constitutional ED: Reports lethargy; Denies chills, fever(s), sweats or weight loss Eyes Eyes: Denies blurry vision, change in vision or diplopia ENT ENT ED: Denies rhinorrhea or sore throat Cardiovascular Cardiovascular: Denies chest pain, orthopnea or racing heartbeat Respiratory/Chest Respiratory/Chest: Denies cough, dyspnea, dyspnea on exertion, orthopnea or sputum Gastrointestinal Gastrointestinal: Reports abdominal pain; Denies diarrhea, nausea or vomiting Genitourinary Genitourinary ED: Denies dysuria, hematuria or urinary frequency Musculoskeletal Musculoskeletal: Denies arthralgias, back pain, myalgias or neck pain Integumentary Denies abscess, Abrasions or rash Neurologic Neurologic: Denies headache(s) or weakness Psychiatric Psychiatric: Denies anxiety, depression or suicidal thoughts Endocrine Endocrinology: Denies polydipsia, polyphagia or polyuria Hematologic/Lymphatic Hematologic/Lymphatic: Denies easy bleeding, easy bruising or lymphadenopathy Allergic/Immunologic Allergic/Immunologic ED: Denies mouth swelling, tongue swelling or urticaria EXAM Physical Exam Const Vital Signs: 08/05/25 12:39 Temperature 98.3 F Temperature Source Oral Pulse Rate 85 Respiratory Rate 16 Blood Pressure 129/93 H Blood Pressure Mean 105 Pulse Ox 100 Oxygen Delivery Method Room Air Positive well nourished and well developed General Appearance ED: well developed and NAD HEENT Reports TM's clear and moist mucous membranes normocephalic and atraumatic; Negative for trauma or tenderness Tympanic Membrane ED: Yes TM's clear Eyes PERRL and EOMs intact bilaterally General Eye ED: Negative for pale conjunctiva or scleral icterus Neck no lymphadenopathy, supple and no JVD General: Negative for tenderness Chest Wall inspection of chest normal and palpation of chest normal Chest: Negative for tenderness Resp normal respiratory effort and clear to auscultation bilaterally Effort and Inspection: Negative for respiratory distress or pain with movement Auscultation: Negative for rhonchi, wheezes or diminished lung sounds Cardio regular rate, regular rhythm, S1 normal heart sound, S2 normal heart sound and no murmurs Peripheral Pulses: pulses 2+ throughout GI normal to inspection, nondistended, normoactive bowel sounds, soft to palpation, non-distended and no masses GI Narrative: Tenderness palpation to the right lower quadrant with some mild guarding. There is no rebound, rigidity, or peritoneal signs. No mass palpated Back/Spine no CVA tenderness and no thoracic nor lumbar tenderness Extremity normal to inspection General Extremety ED: Negative for edema General Extremity: Negative for edema Neuro oriented x3, CN's II-XII intact bilaterally, no sensory deficits noted and gait normal Sensorium / Orientation: awake, alert, oriented to person, oriented to place and oriented to time Motor Exam: strength 5/5 throughout and strength abnormal Psych mental status grossly normal Skin no rashes or lesions noted and no wounds MDM MDM MDM Narrative Medical decision making narrative: Patient presents with right lower abdomen pain with prior history of kidney stones and history of ovarian cyst. Nontoxic-appearing on exam. In the differential would be kidney stone versus ovarian cyst or possible bowel obstruction or other acute etiology. IV line established. CBC with diffe rential patient awakened at 9.8 with hemoglobin 15.2 and platelet count of 214. Chemistries unremarkable. CT scan of the abdomen pelvis without contrast was unremarkable. Patient was medicated with Dilaudid and Zofran and had good pain relief. Lab Data Attestation: I reviewed the patient's lab results. Labs: Laboratory Results - last 24 hr 08/05/25 08/05/25 13:40 14:00 WBC 9.8 RBC 4.97 Hgb 15.2 H Hct 44.4 MCV 89.3 MCH 30.6 MCHC 34.2 RDW Std Deviation 41.6 RDW Coeff of Chang 12.8 Plt Count 214 MPV 11.4 Immature Gran % (Auto) 0.100 Neut % (Auto) 53.4 Lymph % (Auto) 34.7 [place] % (Auto) 10.1 H Eos % (Auto) 1.0 Baso % (Auto) 0.7 Absolute Neuts (auto) 5.2 Absolute Lymphs (auto) 3.40 Nucleated RBC % 0 Sodium 135 Potassium 4.1 Chloride 101 Carbon Dioxide 21.1 Anion Gap 13 BUN 13 Creatinine 0.55 L Estim Creat Clear Calc 175.72 Est GFR (MDRD) Non-Af 117 BUN/Creatinine Ratio 22.9 H Glucose 150 H Calcium 9.0 Urine Color Cancelled Urine Clarity Cancelled Urine pH Cancelled Ur Specific [place] Cancelled U Specif Grav (Refrac) Cancelled Urine Protein Cancelled Urine Glucose (UA) Cancelled Urine Ketones Cancelled Urine Occult Blood Cancelled Urine Nitrite Cancelled Urine Bilirubin Cancelled Urine Urobilinogen Cancelled Ur Leukocyte Esterase Cancelled Urine RBC Cancelled Urine WBC Cancelled Ur Squamous Epith Cells Cancelled Ur Transition Epith Cell Cancelled Ur Renal Epithelial Cell Cancelled Calcium Oxalate Crystal Cancelled Uric Acid Crystals Cancelled Triple Phos Crystals Cancelled Other Crystals Cancelled Amorphous Sediment Cancelled Urine Bacteria Cancelled Hyaline Casts Cancelled Fine Granular Casts Cancelled Coarse Granular Casts Cancelled Waxy Casts Cancelled RBC Casts Cancelled WBC Casts Cancelled Urine Mucus Cancelled Urine Trichomonas Cancelled Urine Yeast Cancelled Radiography Diagnostic Testing: Clinical Impression(s) from Imaging Studies Abdomen/Pelvis CT 08/05/25 13:21 IMPRESSION: No acute abdominopelvic abnormalities. Reading Location: [facility] Discharge Plan Triage Chief Complaint: Abd Pain ED Provider: Joey Hernández Dx/Rx/DC Orders Clinical Impression: Abdominal pain Instructions: ED Abdominal Pain Unkn Cause Fem Prescriptions: New hydrocodone-acetaminophen 5-325 mg tablet 1 tab PO Q4H PRN PRN (Reason: Pain) 2 Days Qty: 10 0RF No Action (DME) blood-glucose meter [Accu-Chek Guide Glucose Meter] Misc See Rx Instructions .Route Qty: 1 0RF Rx Instructions: As directed (DME) lancets [Accu-Chek Fastclix Lancet Drum] Misc See Rx Instructions .Route Qty: 100 0RF Rx Instructions: As directed ondansetron HCl 4 mg tablet 4 mg PO QDAY PRN Humira(CF) 40 mg/0.4 mL syringe kit 40 mg subcut Q2W dulaglutide 4.5 mg/0.5 mL pen injector 4.5 mg subcut QWEEK Qty: 2 1RF bacitracin 500 unit/gram packet 1 applic topical TID 10 Days Qty: 144 0RF prazosin 1 mg capsule 3 mg PO QHS Rx Instructions: 3mgs mirtazapine 30 mg tablet 30 mg PO QHS desvenlafaxine succinate 100 mg tablet extended release 24 hr 100 mg PO DAILY Qty: 30 0RF (DME) Accu-Chek Nathalie Plus test strp Strip See Rx Instructions .Route Qty: 100 0RF Rx Instructions: As directed 1-2 times per day cyclobenzaprine 5 mg tablet 5 mg PO TID PRN (Reason: muscle spasm) Qty: 30 0RF nadolol 40 mg tablet 40 mg PO QDAY Qty: 90 0RF empagliflozin 25 mg tablet 25 mg PO DAILY Qty: 90 1RF metformin 500 mg tablet extended release 24 hr 1,000 mg PO BID Qty: 360 0RF Rx Instructions: 2000mg daily Primary Care Provider: Tracy Ware Referrals: Tracy Ware MD [Primary Care Provider, Internal Medicine] - 3-5 Days Activity Restrictions/Additional Instructions: Keep your appointment with Dr. Disla. Print Language: Frisian Disposition Disposition: Home, Self Care
[2025-08-05 13:56] LABS: Hematocrit 44.4 % (37-47); Hemoglobin 15.2 g/dL (12.0-15.0); Immature Granulocytes Count 0.010 X10^3/uL (0.0-0.0); Mean Corp Hgb Conc 34.2 g/dL (32-36); Mean Corpuscular Volume 89.3 fL (81-99); Mean Platelet Vol. 11.4 fl (6.2-12.0); NRBC Flagged by Analyzer 0 % (0-5); Platelet Count 214 K/mm3 (150-450); RBC Distribution Width CV 12.8 % (11.6-14.6); RBC Distribution Width SD 41.6 fl (35.1-43.9); Red Blood Count 4.97 M/mm3 (4.2-5.4); White Blood Count 9.8 K/mm3 (4.4-11.0)
[2025-08-05 14:25] LABS: Anion Gap 13 (5-15); BUN 13 mg/dL (4-19); BUN/Creat Ratio 22.9 RATIO (10-20); Calcium,Total 9.0 mg/dL (7.6-11.0); Carbon Dioxide 21.1 mmol/L (21.0-32.0); Chloride 101 mmol/L (98-108); Estimated Creatinine Clearance 175.72 ml/min (50-250); Glucose 150 mg/dL (70-99); Potassium 4.1 mmol/L (3.3-5.1)
[2025-08-05 15:11] VITALS: BP 141/78; PULSE 78; RESP 16; O2SAT 99
[2025-08-05 15:21] LABS: Mucous, Urine 0 SEEN /hpf (<or=2+)
[2025-08-05 15:46] LABS: Glucose, Dipstick 1000 mg/dl (Normal); Ketone-Dipstick Negative (Negative); Leukocyte Esterase-Dipstick Negative /ul (Negative); Nitrite-Dipstick Negative (Negative); Occult Blood-Urine Negative /ul (Negative); Protein-Dipstick 15 mg/dl (Negative); Specific Gravity, Urine 1.015 (1.002-1.030); Urine Bilirubin Dipstick Negative (Negative)
[2025-08-05 15:47] LABS: Color, Urine Yellow (Yellow)
[2025-08-05 15:53] LABS: Red Blood Cells-Urine 0-5 SEEN /hpf (0-5); Squamous Epithelial Cells - UA 0-5 SEEN /hpf (5-10)
[2025-08-05 15:54] LABS: Yeast-Urine 1+ /hpf (None Seen)
[2025-08-05 16:15] VITALS: BP 117/74; PULSE 71; RESP 14; TEMP 37; O2SAT 99
== END 2025-08-05 16:16 | disposition home or self-care (01) ==
PROVIDERS: Emergency Provider Emergency Medicine; PCP Internal Medicine; Visit Provider Emergency Medicine
DX: R10.31 Right lower quadrant pain (principal); M06.9 Rheumatoid arthritis, unspecified; M32.9 Systemic lupus erythematosus, unspecified; E11.9 Type 2 diabetes mellitus without complications; N83.8 Other noninflammatory disorders of ovary, fallopian tube and broad ligament; E28.2 Polycystic ovarian syndrome; K90.0 Celiac disease; Z90.49 Acquired absence of other specified parts of digestive tract; Z79.85 Long-term (current) use of injectable non-insulin antidiabetic drugs; Z79.84 Long term (current) use of oral hypoglycemic drugs; Z87.42 Personal history of other diseases of the female genital tract; Z87.442 Personal history of urinary calculi; Z79.899 Other long term (current) drug therapy; Z87.891 Personal history of nicotine dependence
CPT/HCPCS: 74176; 80048; 81001; 85025; 96374; 96375; 96376; 99283; A4216; J2405

== ENCOUNTER → 2025-08-08 | Outpatient (CLI) | payer MEDICAID, SELFPAY ==
[2025-08-08 16:21] LABS: Hematocrit 46.1 % (37-47); Hemoglobin 15.4 g/dL (12.0-15.0); Immature Granulocytes Count 0.020 X10^3/uL (0.0-0.0); Mean Corp Hgb Conc 33.4 g/dL (32-36); Mean Corpuscular Volume 90.7 fL (81-99); Mean Platelet Vol. 12.3 fl (6.2-12.0); NRBC Flagged by Analyzer 0 % (0-5); Platelet Count 214 K/mm3 (150-450); RBC Distribution Width CV 12.7 % (11.6-14.6); RBC Distribution Width SD 41.7 fl (35.1-43.9); Red Blood Count 5.08 M/mm3 (4.2-5.4); White Blood Count 8.8 K/mm3 (4.4-11.0)
[2025-08-08 16:26] LABS: AST(SGOT) 43 U/L (<=31); Alanine Aminotransfer ALT/SGPT 56 U/L (<=34); Alkaline Phosphatase 81 U/L (35-104); BUN 9 mg/dL (4-19); CRP 3.67 mg/L (0.0-3.0)
== END | disposition home or self-care (01) ==
LOC: MTLAB 12:48
PROVIDERS: PCP Internal Medicine
DX: M06.09 Rheumatoid arthritis without rheumatoid factor, multiple sites (principal); Z79.899 Other long term (current) drug therapy
CPT/HCPCS: 36415; 84075; 84450; 84460; 84520; 85025; 85652; 86140

== ENCOUNTER → 2025-10-03 | Outpatient (CLI) | payer MEDICAID, SELFPAY ==
[2025-10-03 17:26] LABS: Follicle Stimulating Hormone 6.7 mIU/mL
[2025-10-09 15:08] LABS: Anti-Mullerian Hormone,Serum 0.744 ng/mL (.)
== END | disposition home or self-care (01) ==
LOC: LAB 15:28
PROVIDERS: PCP Internal Medicine; Referring Provider Obstetrics & Gynecology; Visit Provider Obstetrics & Gynecology
DX: R10.20 Pelvic and perineal pain unspecified side (principal)
CPT/HCPCS: 36415; 82670; 83001; 83516

== ENCOUNTER 2025-10-12 16:07 | Emergency (ER) | payer MEDICAID, SELFPAY ==
[2025-10-12 16:08] VITALS: BP 142/102; PULSE 92; RESP 14; TEMP 36.1; O2SAT 98; BMI 35.6
--- NOTE | 2025-10-12 16:26 | EDS_ITS ---
HPI History of Present Illness Chief Complaint: Abd Pain Detail of Chief Complaint: Sharp right lower quadrant/inguinal pain Informant: patient Onset/Context/Timing Onset: Weeks (This episode started 1 week ago.) and Month(s) (Symptoms date back to beginning of summer.) Context: Sudden Onset Timing: Continuous Quality: Sharp Location: RLQ/inguinal area Current Severity: Severe Maximum Severity: Severe (Feels like my insides are being torn out. ) Worsened by: Nothing Relieved by: Nothing, states she took Tylenol and NSAIDs Associated Symptoms Associated Symptoms: No other symptoms Narrative Narrative: Patient is a 44-year-old woman. She was recently seen by Dr. Heather Disla. To evaluate her symptoms she had a ultrasound which revealed no ovarian pathology. She does have a history of endometriosis, polycystic ovarian syndrome, renal calculi as well as celiac disease. Patient was recently started on [place]. Patient is on no pain medicine. She denies fever, chills night sweats. She denies any precipitating, alleviating or exacerbating factors. She denies dysuria, frequency, urgency or hematuria. She has no vaginal symptoms. She is status post hysterectomy. She is also status post cholecystectomy and appendectomy. Per Dr. Heather Disla's note recommendation was medical treatment versus surgical. Patient is confused and states Dr. Heather Disla thinks she has endometriosis is clearly documented by Dr. Heather Disla that she does have endometriosis. There is no history of trauma. There are no skin lesions or rash noted. Prior similar symptoms: Yes Recent Illness/Hospitalization: No PFSH PFSH Medical History Anxiety Former smoker Ovarian mass, left Back problem Kidney stone PCOS (polycystic ovarian syndrome) Rheumatoid arthritis MVP (mitral valve prolapse) Celiac disease Lupus Carpal tunnel syndrome Bursitis of left shoulder Diabetes Pulmonary hypertension Hyperlipidemia Home Medications ?Medication ?Instructions ?Recorded ?Last Taken ?Type blood-glucose meter (Accu-Chek #1 ea 05/08/24 Unknown Rx Guide Glucose Meter) lancets (Accu-Chek Fastclix Lancet #100 ea 05/08/24 Un known Rx Drum) ondansetron HCl 4 mg tablet 4 mg PO QDAY PRN 01/09/25 Unknown History desvenlafaxine succinate 100 mg 100 mg PO DAILY #30 ta bs 01/13/25 Unknown Rx tablet,extended release 24 hr adalimumab 40 mg/0.4 mL 40 mg subcut Q2W 05/01/25 Un known History subcutaneous syringe kit (Humira(CF)) mirtazapine 30 mg tablet 30 mg PO QHS 06/26/25 Unknow n History prazosin 1 mg capsule 3 mg PO QHS 06/26/25 Unknown History empagliflozin 25 mg tablet 25 mg PO DAILY #90 tabs Unknown Rx metformin 500 mg tablet,extended 1,000 mg (2 x 500 mg) PO BID #360 08/05/25 Unknown Rx release 24 hr tabs blood sugar diagnostic (Accu-Chek #100 ea 09/15/25 Unk nown Rx Nathalie Plus test strips) nadolol 40 mg tablet 40 mg PO QDAY #90 tabs 09/15 Unknown Rx dulaglutide 4.5 mg/0.5 mL 4.5 mg (0.5 mL) subcut QWEEK #2 mL 09/22/25 Unknown Rx subcutaneous pen injector elagolix 200 mg tablet (Orilissa) 200 mg PO BID #60 ta bs 10/07/25 Unknown Rx nitrofurantoin 100 mg PO Q12 #10 CAPSULES 1 12/12/24 Unknown Rx monohydrate/macrocrystals 100 mg capsule Allergy/AdvReac Type Severity Reaction Status Date / Time hydroxychloroquine (From Allergy Intermediate GI issues Verified 10/12/25 16:10 Plaquenil) adhesive tape (paper tape) Allergy Other Verified 10/12/25 16:10 ketorolac tromethamine (From Allergy Shortness Verified 10/12/25 16:10 Toradol) of breath naproxen sodium (From Aleve) Allergy Shortness Verified 10/12/25 16:10 of breath Penicillins Allergy Rash Verified 10/12/25 16:10 Family History Mother Autoimmune disease lupus Parkinson disease Hypertension Grandfather Colon cancer Father Hypertension Myocardial infarction, Onset Age: 51 Grandmother Breast cancer Sister Crohn's disease Surgical History S/P partial hysterectomy H/O lateral meniscus repair of right knee History of carpal tunnel surgery Hx of reduction mammoplasty Hx of appendectomy Hx of cholecystectomy Social History adopted: No household members: family number of children: 0 current occupational status: unemployed pets and animals: Yes (2) pets and animals: cat(s) sexually active: No Smoking Status: Former smoker quit date: 11/13/13 pack-years: 15 Tobacco: How many years used: 20 Electronic Cigarette Use: not used alcohol intake: never substance use type: does not use diet: gluten free caffeine: Yes (1) Type: coffee frequency: does not exercise seatbelt use: always do you feel safe at home: Yes additional social history: Single ROS ROS ED Constitutional Constitutional ED: Denies chills, fever(s), subjective, sweats or weight loss Respiratory/Chest Respiratory/Chest: Denies cough, dyspnea or dyspnea on exertion Gastrointestinal Gastrointestinal: Reports abdominal pain; Denies constipation, diarrhea, melena, nausea or vomiting Genitourinary Genitourinary ED: Denies dysuria, hematuria or urinary frequency Musculoskeletal Musculoskeletal: Denies arthralgias, back pain, myalgias or neck pain Integumentary Denies rash Hematologic/Lymphatic Hematologic/Lymphatic: Reports systems reviewed and no addt'l complaints, except as documented EXAM Physical Exam Const Vital Signs: 10/12/25 16:08 Temperature 97 F L Temperature Source Temporal Pulse Rate 92 Respiratory Rate 14 Blood Pressure 142/102 H Blood Pressure Mean 115 Pulse Ox 98 Oxygen Delivery Method Room Air Positive well nourished and well developed Constitutional Narrative: Patient has a flat affect. She appears depressed. Vitals are marked for slight elevation in blood pressure. General Appearance ED: well developed; Negative for cyanotic, diaphoretic or pallor HEENT Reports moist mucous membranes HEENT Narrative: Head is atraumatic and normocephalic. Ears normal. Nares patent Eyes PERRL and EOMs intact bilaterally General Eye ED: Negative for pale conjunctiva or scleral icterus Resp normal respiratory effort and clear to auscultation bilaterally Cardio regular rate, regular rhythm, S1 normal heart sound, S2 normal heart sound and no murmurs GI normal to inspection, nondistended, normoactive bowel sounds, non-distended and no masses; Negative for non-tender or hepatosplenomegaly GI Narrative: Reports some discomfort in the right lower quadrant. There is no palpable mass. There is no abdominal bruit or or abdominal mass. There is no pulsatile mass. Exam is limited due to body habitus. Palpation: soft; Negative for guarding or splenomegaly Back/Spine no CVA tenderness Extremity normal to inspection General Extremety ED: Negative for edema or tenderness General Extremity: Negative for edema Neuro oriented x3 and CN's II-XII intact bilaterally Sensorium / Orientation: alert Psych Mood & Affect: depressed Skin no rashes or lesions noted, no wounds and skin turgor normal General Skin Exam: elasticity normal; Negative for jaundice or pallor MDM MDM MDM Narrative Medical decision making narrative: Differential diagnosis would include endometriosis, adhesions, doubt ovarian cyst in light of the recent ultrasound that was unremarkable. Symptoms are not consistent with celiac disease either. Since the pain is lower abdomen and she is status post cholecystectomy and no tenderness in the right upper quadrant liver enzymes were not obtained. Electrolyte panel was obtained that she is diabetics assess glucose, CO2 anion gap and her electrolytes. CBC to assess white count and differential. If she does have an elevated white count will consider obtaining a CT of the abdomen and pelvis. History & Record Review Additional record(s) reviewed:: Prior outpatient record (Documented HPI narrative) and Prior labs Lab Data Attestation: I reviewed the patient's lab results. Lab results narrative: White count slightly elevated 12,000. There is no shift. Basic metabolic panel was elevated glucose of 136 with normal CO2 anion gap. She does have a history of diabetes. She is on metformin. Urine is suggestive of acute GI. Will treat with Macrobid. Labs: Laboratory Results - last 24 hr 10/12/25 10/12/25 16:35 16:50 WBC 12.0 H RBC 5.00 Hgb 15.4 H Hct 43.7 MCV 87.4 MCH 30.8 MCHC 35.2 RDW Std Deviation 39.8 RDW Coeff of Chang 12.5 Plt Count 236 MPV 11.3 Immature Gran % (Auto) 0.200 Neut % (Auto) 58.8 Lymph % (Auto) 31.3 [place] % (Auto) 8.4 Eos % (Auto) 0.8 Baso % (Auto) 0.5 Absolute Neuts (auto) 7.1 Absolute Lymphs (auto) 3.77 Nucleated RBC % 0 Sodium 134 Potassium 3.8 Chloride 101 Carbon Dioxide 19.9 L Anion Gap 13 BUN 7 Creatinine 0.53 L Estim Creat Clear Calc 182.32 Est GFR (MDRD) Non-Af 118 BUN/Creatinine Ratio 13.3 Glucose 136 H Calcium 9.1 Urine Color Yellow Urine Clarity Clear Urine pH 5.0 Ur Specific [place] 1.020 Urine Protein 15 H Urine Glucose (UA) 1000 H Urine Ketones Negative Urine Occult Blood Negative Urine Nitrite Negative Urine Bilirubin Negative Urine Urobilinogen Normal Ur Leukocyte Esterase Negative Urine RBC 0-5 SEEN Urine WBC 0 SEEN Ur Squamous Epith Cells 5-10 SEEN Urine Bacteria 1+ Urine Mucus 1+ Urine Yeast RARE Treatment and Re-Evaluation :: Patient received first dose of Macrobid in the apartment. She was given a prescription as well. Discharge Plan Triage Chief Complaint: Abd Pain ED Provider: Daniel Rodriguez Dx/Rx/DC Orders Clinical Impression: Abdominal pain, chronic, right lower quadrant, Acute cystitis without hematuria, Essential hypertension, Hyperlipidemia, Diabetes, Adult BMI 35.0-35.9 kg/sq m, Hx of endometriosis, Depressed affect Instructions: ED Abdominal Pain Unkn Cause Fem, ED Cystitis Female Adult Prescriptions: New nitrofurantoin monohyd/m-cryst 100 mg capsule 100 mg PO Q12 Qty: 10 0RF No Action (DME) blood-glucose meter [Accu-Chek Guide Glucose Meter] Misc See Rx Instructions .Route Qty: 1 0RF Rx Instructions: As directed (DME) lancets [Accu-Chek Fastclix Lancet Drum] Misc See Rx Instructions .Route Qty: 100 0RF Rx Instructions: As directed ondansetron HCl 4 mg tablet 4 mg PO QDAY PRN Humira(CF) 40 mg/0.4 mL syringe kit 40 mg subcut Q2W prazosin 1 mg capsule 3 mg PO QHS Rx Instructions: 3mgs mirtazapine 30 mg tablet 30 mg PO QHS desvenlafaxine succinate 100 mg tablet extended release 24 hr 100 mg PO DAILY Qty: 30 0RF empagliflozin 25 mg tablet 25 mg PO DAILY Qty: 90 1RF metformin 500 mg tablet extended release 24 hr 1,000 mg PO BID Qty: 360 0RF Rx Instructions: 2000mg daily (DME) Accu-Chek Nathalie Plus test strp Strip See Rx Instructions .Route Qty: 100 0RF Rx Instructions: As directed 1-2 times per day nadolol 40 mg tablet 40 mg PO QDAY Qty: 90 0RF dulaglutide 4.5 mg/0.5 mL pen injector 4.5 mg subcut QWEEK Qty: 2 1RF [place] 200 mg tablet 200 mg PO BID Qty: 60 12RF Primary Care Provider: Tracy Ware Referrals: Tracy Ware MD [Primary Care Provider, Internal Medicine] - 3-5 Days if not improving Print Language: Gibraltarian Disposition Disposition: Home, Self Care
[2025-10-12 16:40] LABS: Hematocrit 43.7 % (37-47); Hemoglobin 15.4 g/dL (12.0-15.0); Immature Granulocytes Count 0.020 X10^3/uL (0.0-0.0); Mean Corp Hgb Conc 35.2 g/dL (32-36); Mean Corpuscular Volume 87.4 fL (81-99); Mean Platelet Vol. 11.3 fl (6.2-12.0); NRBC Flagged by Analyzer 0 % (0-5); Platelet Count 236 K/mm3 (150-450); RBC Distribution Width CV 12.5 % (11.6-14.6); RBC Distribution Width SD 39.8 fl (35.1-43.9); Red Blood Count 5.00 M/mm3 (4.2-5.4); White Blood Count 12.0 K/mm3 (4.4-11.0)
--- OUTSIDE RECORDS SUMMARY | 2025-10-12 16:47 | XMS RPT_ITS | CCD ---
Author Organization [facility] Care Team Providers Care Commercial Credit Portfolio Manager Name Role Phone ADRIAN, CRISTI E Unavailable Unavailable ADRIAN, CRISTI E Unavailable Unavailable ADRIAN, CRISTI Unavailable Unavailable ADRIAN, CRISTI Unavailable Unavailable Francesco Mandujano Unavailable Unavailable ABRAHAM CAMPBELLNETH Unavailable Unavailable ABRAHAM CAMPBELLNETH Unavailable Unavailable Francesco Mandujano Unavailable Unavailable Francesco Mandujano MD Primary Care Provider Francesco Mandujano MD Primary Care Provider FRANCESCO MANDUJANO MD Primary Care Physician JOSY RIGGINS MD Attending Unavailable FRANCESCO MANDUJANO MD Primary Care Unavailable Francesco Mandujano MD Primary Care Provider Francesco Mandujano MD Primary Care Provider Francesco Mandujano MD Primary Care Provider Unavailable Primary Care Provider Unavailelmira Preciado APRN.STEFANIE, Denise Unavailable Maral Moreno PA-C Unavailable Francesco Mandujano MD Primary Care Provider [phone] PROVIDER, UNKNOWN Admitting Unavailable CHIN LEWIS Attending Unavailable Dr. Esteban Ware MD Primary Care Provider [phone] Dr. Esteban Ware MD Attending Provider Dr. Esteban Ware MD Referring Provider Dr. Meir Hamilton MD Attending Provider Dr. eMir Hamilton MD Referring Provider Nena SAMUEL MD, Justin Unavailable [phone] Giovanni SALINAS, Francesco Veronica Primary Care Provider COLEEN PIRES Attending Provider Ozzy LEAD INFRASTRUCTURE ARCHITECT.MAT MAN, Denise Unavailable Josh DE LA ROSA, Maral Unavailable Michael SALINAS, Dr. Molina Primary Care Provider [phone] Mihcael SALINAS, Dr. Molina Attending Provider Michael SALINAS, Dr. Molina Referring Provider David Cox Attending Provider Ungerer ENTRY LEVEL MANAGEMENT-C, Ghislaine Attending Provider [phone] Ungerer ENTRY LEVEL MANAGEMENT-C, Ghislaine Referring Provider [phone] Michael SALINAS, Dr. Molina Primary Care Provider [phone] Michael SALINAS, Dr. Molina Primary Care Provider 1([phone] Dr. Joey Hernández DO Emergency Provider [phone] Michael SALINAS, Dr. Molina Primary Care Physician Michael SALINAS, Dr. Molina Attending Physician [phone] David Cox Attending Physician Ungerer ENTRY LEVEL MANAGEMENT-C, Ghislaine Attending Physician Edgar SANCHEZ, Dr. Cook Attending Physician Dr. Joey Hernández DO Emergency Department Physici an JAMES MORALES Attending Physician JAMES MORALES Referring Provider [phone] Michael, Esteban Attending Unavailable Michael, Esteban Primary Care Unavailable Michael, Esteban Referring Unavailable Michael, Esteban Primary Care Unavailable [place], Esteban Referring Unavailable [place], Esteban Attending Unavailable [place], Esteban Attending Unavailable [place], Esteban Primary Care Unavailable Michael, Esteban Referring Unavailable [place], Esteban Primary Care Unavailable [place], Esteban Referring Unavailable Ungerer, Ghislaine Attending Unavailable [place], Estebna Primary Care Unavailable David Cox Attending Unavailable [place], Esteban Primary Care Unavailable Michael, Esteban Referring Unavailable Ungerer, Ghislaine Attending Unavailable AMITA TAYLOR Attending Unavailable Michael, Esteban Primary Care Unavailable AMITA TAYLOR Referring Unavailable Michael, Esteban Primary Care Unavailable Michael, Esteban Referring Unavailable [place], Esteban Attending Unavailable [place], Esteban Primary Care Unavailable AMITA TAYLOR Attending Unavailable Ungerer, Ghislaine Referring Unavailable Ungerer, Ghislaine Attending Unavailable Michael, Esteban Primary Care Unavailable Michael, Esteban Primary Care Unavailable Ungur, Remus Attending Unavailable Michael, Esteban Primary Care Unavailable Ungur, Remus Attending Unavailable Michael, Esteban Primary Care Unavailable Ungerer, Ghislaine Referring Unavailable Ungerer, Ghislaine Attending Unavailable Michael, Esteban Attending Unavailable [place], Esteban Primary Care Unavailable [place], Esteban Referring Unavailable Michael, Esteban Primary Care Unavailable Meir Hamilton Referring Unavailable Meir Hamilton Attending Unavailable Michael, Esteban Attending Unavailable Michael, Esteban Primary Care Unavailable [place], Esteban Referring Unavailable GIOVANNI, FRANCESCO A Primary Care Unavailable DHEERAJ, JISNA R Referring Unavailable DHEERAJ, JISNA R Attending Unavailable DHEERAJ, JISNA R Referring Unavailable DHEERAJ, JISNA R Attending Unavailable GIOVANNI, FRANCESCO A Primary Care Unavailable DHEERAJ, JISNA R Attending Unavailable GIOVANNI, FRANCESCO A Referring Unavailable GIOVANNI, FRANCESCO A Primary Care Unavailable SELF, SELF Referring Unavailable DHEERAJ, JISNA R Attending Unavailable GIOVANNI, FRANCESCO A Primary Care Unavailable DHEERAJ, JISNA R Attending Unavailable SELF, SELF Referring Unavailable GIOVANNI, FRANCESCO A Primary Care Unavailable JAMES MORALES Attending Unavailable GIOVANNI, FRANCESCO A Primary Care Unavailable SELF, SELF Referring Unavailable GIOVANNI, FRANCESCO A Primary Care Unavailable MICHAEL, ESTEBAN Referring Unavailable DHEERAJ, JISNA R Attending Unavailable GIOVANNI, FRANCESCO A Primary Care Unavailable MICHAEL, ESTEBAN Referring Unavailable DHEERAJ, JISNA R Attending Unavailable FRANCESCO MANDUJANO Primary Care Unavailable LOUISE ESPINO Referring Unavailable LOUISE ESPINO Attending Unavailable FRANCESCO MANDUJANO Primary Care Unavailable MARGARITA ADALI Referring Unavailable FRANCESCO MANDUJANO Primary Care Unavailable MARGARITA, ADALI Referring Unavailable FRANCESCO MANDUJANO Primary Care Unavailable MARGARITA, ADALI Referring Unavailable FRANCESCO MANDUJANO Primary Care Unavailable FRANCESCO MANDUJANO Primary Care Unavailable FRANCESCO MANDUJANO Primary Care Unavailable FRANCESCO PORRAS Attending Unavailable FRANCESCO MANDUJANO Primary Care Unavailable MABEL GARCIA Attending Unavailable FRANCESCO MANDUJANO Primary Care Unavailable YARY ROWE Attending Unavailable GIOVANNI SALINAS, FRANCESCO Veronica Primary Care Unavailable YOSEF SALINAS, DR TABATHA Miller Attending Unavailelmira BARRIOS MD, DR ASHLEY Tyler Attending [place] MANDUJANO MD, FRANCESCO Veronica Primary Care Unavailable Allergies Allergy Classification Reported Allergen(s) Allergy Type Date of Onset Reaction(s) Facility (20 sources) atorvastatin; Translations: [ATORVASTATIN] Drug Allergy 11-09-20 15 Myalgia [facility] Repository (20 sources) egg extract; Translations: [EGG] Drug Allergy 08-28-20 13 GI Upset [facility] Repository (20 sources) fenofibrate; Translations: [FENOFIBRATE] Drug [facility] 07-[facility]-20 [facility] ket[facility]ol[facility]; Translations: [KETOROLAC] Drug Allergy 03-06-20 14 Shortness of Breath [facility] Repository (20 sources) Penicillins; Translations: [PENICILLINS] Propensity to adverse reactions to drug (disorder) 12-28-19 08 AOF, Rash [facility] Repository (20 sources) pioglitazone; Translations: [PIOGLITAZONE HCL] Drug Allergy 11-15-19 17 Other: See Comments [facility] Repository (20 sources) pravastatin; Translations: [PRAVASTATIN SODIUM] Drug Allergy 07-27-20 17 GI Upset [facility] Repository (20 sources) sertraline; Translations: [SERTRALINE HCL] Drug Allergy 01-02-20 16 Other: See Comments [facility] Repository (20 sources) Citalopram; Translations: [CITALOPRAM] Drug Allergy 08-22-20 18 Intolerance [facility] Work Phone: (20 sources) Hydroxychloroquine; Translations: [HYDROXYCHLOROQUINE] Drug Allergy 02-12-20 20 Other: See Comments [facility] Work Phone: Comment on above: pt reports she is al lergic, had rash and GI issues from using this medication in the past (20 sources) lamoTRIgine; Translations: [LAMOTRIGINE] Drug Allergy 03-19-20 21 Other: See Comments [facility] Work Phone: (20 sources) Simvastatin; Translations: [SIMVASTATIN] Drug Allergy 02-12-20 20 Myalgia [facility] Work Phone: (14 sources) Adhesive Tape; Translations: [adhesive tape] Allergy to substance 09-07-20 22 Other [facility] Comment on above: ERODES SKIN (19 sources) Ketorolac; Translations: [ketorolac tromethamine] Drug Allergy 08-15-20 19 Shortness of breath [facility] (14 sources) Naproxen; Translations: [naproxen sodium] Drug Allergy 08-15-20 19 Shortness of breath [facility] (20 sources) Ibuprofen; Translations: [ibuprofen] Drug Allergy 01-10-20 24 Unknown [facility] (20 sources) Naproxen; Translations: [naproxen] Drug Allergy 02-13-20 Other: See Comments [facility] (1 source) Penicillin; Translations: [penicillins] Drug Allergy [facility] (20 sources) Psyllium; Translations: [psyllium] Drug Allergy 01-10-[address] [facility] Comment on above: tongue/lip swelling with beets only per pt (3 sources) Bleach Propensity to adverse reactions to substance Skin irritation (disorder), Broken skin (disorder) [facility] (3 sources) Tape, Paper Allergy to substance [facility] (20 sources) Adhesive agent; Translations: [ADHESIVE] Drug Allergy 02-13-20 19 Other: See Comments [facility] (5 sources) Hydroxychloroquine Drug Allergy 11-27-[address] [facility] (2 sources) Penicillin; Translations: [penicillins] Drug Allergy [facility] (1 source) Adhesive agent Drug Allergy 02-13-20 Other: See Comments [facility] (1 source) Hydroxychloroquine Drug Allergy 08-05-20 [facility] Repository Medications Current Medications Medication Drug Class(es) Dates Sig (Normalized) Sig (Original) acetaminophen 325 mg / HYDROcodone bitartrate 5 mg oral tablet (5 sources) Opioid Agonist Start: 08-05-2025 take 1 tablet by mouth every four hours as needed for pain Start: 07-17-2025 End: 07-31-2025 Hydrocodone-Acetaminophen 5- 325 mg tablet Discontinued 1 {tbl} PO EVERY 4 HOURS NEEDED as needed for Pain 10 2 0 July 17, 2025 July 31, 2025 10:32am Abdominal pain Unspecified abdominal pain Start: 06-04-2025 End: 06-06-2025 [place] 325- 5 mg oral tablet Dose = 1 tab(s), Oral, q6h, PRN for pain, May take 1-2 tablets / dose, X 2 day(s), # 5 tab(s), 0 Refill(s), Hip strain, 109.1 Start Date: 06/04/25 Stop Date: 06/06/25 Status: Ordered Quantity: 5.0 Unit: tab(s) Repeat number: 1 Indications: Strain of muscle, fascia and tendon of unspecified hip, initial encounter; 0.4 ml adalimumab 100 mg/ml prefilled syringe (14 sources) Tumor Necrosis Factor Diane Start: 08-14-2025 End: 08-14-2026 inject 40 mg by subcutaneous injection every week Adalimumab 40 MG/0.4ML Prefilled Syringe Kit citrate free Indications: 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 2 Each 07/16/2025 10:17 AM EDT 07/08/2025 07/08/2026 Active amoxicillin 875 mg oral tablet (1 source) Penicillin-class Antibacterial Start: 07-24-2023 End: 07-29-2023 take 1 tablet by mouth twice daily amoxicillin (AMOXIL) 875 mg tablet Indications: Tooth infection Take 1 tablet by mouth twice daily for 5 days. 10 tablet 0 07/24/2023 07/29/2023 Active Comment on above: Take 1 tablet by [facility] twice daily for 5 days. B-D INSULIN SYRINGE 1CC/25GX1 25G X 1 1 ML Misc (4 sources) Start: 10-19-2021 B-D INSULIN SYRINGE 1CC/25GX1 25G X 1 1 ML Misc USE DIRECTED FOR WEEKLY METHOTREXATE INJECTIONS 100 Each 1 10/19/2021 Active bacitracin 0.5 unt/mg topical ointment (2 sources) Start: 07-31-2025 End: 08-10-2025 Bacitracin 500 unit/gram packet Discontinued 1 NMA TOPICAL THREE TIMES A DAY 144 10 0 July 31, 2025 12:00am August 09, 2025 12:00am August 10, 2025 12:10am Blood-Glucose Meter (Accu-Chek Guide Glucose Meter) misc (11 sources) Start: 05-08-2024 [facility]) [facility] Active 0 .Route 1 0 May 08, 2024 12:00am Diabetes mellitus Type 2 diabetes mellitus without complications As directed Start: 05-08-2024 Blood-Glucose Meter (Accu[facility]Chek Guide [facility]ucose Meter) [facility] Active 0 .Route 1 May 08, 2024 12:00am As directed Blood-Glucose Meter monitoring kit (1 source) Start: 10-31-2022 End: 11-01-2022 Blood-Glucose Meter monitoring kit Glucose Meter of Choice - Kit - Dx: Type 2 DM - Uncontrolled E11.65 no insulin 1 Each 0 10/31/2022 11/01/2022 Active Comment on above: Glucose Meter of Cho ice - Kit - Dx: Type 2 DM - Uncontrolled E11.65 no insulin clindamycin 150 mg oral capsule (1 source) Lincosamide Antibacterial Start: 07-22-2024 End: 07-27-2024 take 3 capsules by mouth three times daily clindamycin (CLEOCIN) 150 mg capsule Take 3 capsules by mouth three times a day for 5 days. 45 capsule 07/22/2024 07/27/2024 Active 24 hr desvenlafaxine succinate 100 mg extended release oral tablet (20 sources) Serotonin and Norepinephrine Reuptake Inhibitor Start: 01-08-2024 take 1 tablet by mouth once daily desvenlafaxine 100 mg Tb24 Take 1 Tablet By Oral Route 1 time per day 01/08/2024 Active Start: 04-24-2023 End: 01-13-2025 take 1 tablet by mouth once daily Desvenlafaxine Succinate 100 MG Tab SR 24 HR Take 1 tablet by mouth daily. 10/29/2024 Active Comment on above: Take 1 Tablet By Ora l Route 1 time per day dicyclomine hydrochloride 20 mg oral tablet (14 sources) Anticholinergic Start: take 1 tablet by mouth three times daily as needed dicyclomine (BENTYL) 20 mg tablet Indications: Gastroenteritis Take one tablet by mouth three times daily as needed for abdominal cramping 90 tablet 2 08/01/2024 Active Start: 06-25-2024 End: 07-02-2024 take 1 tablet by mouth four times daily as needed dicyclomine (BENTYL) 20 mg tablet Indications: Gastroenteritis Take 1 tablet by mouth four times a day as needed for up to 7 days. 20 tablet 0 06/25/2024 07/02/2024 Active doxycycline hyclate 100 mg oral tablet (14 sources) Tetracycline-class Drug Start: 09-30-2024 End: 10-07-2024 take 1 tablet by mouth twice daily doxycycline (VIBRA-TABS) 100 mg tablet Indications: Rhinosinusitis Take 1 tablet by mouth two times a day for 7 days. 14 tablet 09/30/2024 10/07/2024 Active Start: 03-06-2018 End: 03-06-2018 take 1 capsule by mouth twice daily Doxycycline Hyclate 100 MG capsule Discontinued 100 mg PO TWICE A DAY March 06, 2018 12:00am March 06, 2018 11:52am post op antibiotic Dulaglutide (20 sources) GLP-1 Receptor Agonist Start: 07-31-2025 Start: 07-31-2025 Dulaglutide 4. 5 mg/0.5 mL pen injector Active 4.5 mg SC EVERY WEEK 2 July 31, 2025 10:52am Complies with drug therapy Start: 07-01-2025 End: 07-31-2025 Dulaglutide 3 mg/0.5 mL pen injector Discontinued 3 mg SC EVERY WEEK 2 July 01, 2025 8:29am July 31, 2025 10:57am Start: 07-01-2025 Dulaglutide 3 mg/0.5 mL pen injector Active 3 mg SC EVERY WEEK 2 July 01, 2025 8:29am Start: 05-07-2025 End: 07-01-2025 Dulaglutide 3 mg/0.5 mL pen injector Discontinued 3 mg SC EVERY WEEK 2 May 07, 2025 4:36pm July 01, 2025 8:29am Start: 05-07-2025 Dulaglutide 3 mg/0.5 mL pen injector Active 3 mg SC EVERY WEEK 2 May 07, 2025 4:36pm Start: 05-15-2024 End: 07-04-2024 Dulaglutide (Trulicity) 0.75 mg/0.5 mL pen injector Discontinued 1.5 mg SC EVERY WEEK 2 June 28, 2024 4:33pm July 04, 2024 4:12pm Start: 05-08-2024 End: 05-08-2024 Dulaglutide 0.75 mg/0.5 mL p en injector Discontinued 1.5 mg SC EVERY WEEK May 08, 2024 11:22am May 08, 2024 12:08pm Start: 12-28-2020 End: 05-07-2025 Dulaglutide 1.5 mg/0.5 mL pe n injector Discontinued 1.5 mg SC EVERY WEEK 2 April 21, 2025 11:26am May 07, 2025 4:36pm Start: 07-17-2020 inject 1 dose by sub cutaneous injection every week Trulicity Pen Subcutaneous, qWeek, 0 Refill(s) Start Date: 07/17/20 Status: Ordered Medication Dispense Status: Completed Total Allowed Fills: 1 Fills Dispensed: 0 Start: 07-17-2020 Trulicity Pen Subcutaneous, qWeek, 0 Refill(s) Start Date: 07/17/20 Status: Ordered Repeat number: 1 Start: 07-17-2020 Trulicity Pen Subcutaneous, qWeek, 0 Refill(s) Start Date: 07/17/20 Status: Ordered Start: 07-24-2019 End: 05-08-2024 Dulaglutide 0.75 MG/0.5 ML p en injector Discontinued 0.75 mg SQ EVERY WEEK July 24, 2019 12:00am May 08, 2024 11:24am Comment on above: Inject 1.5 mg subcut aneously one time a week. Inject once per week. Discard Pen After empagliflozin 25 mg oral tablet (20 sources) Sodium-Glucose Cotransporter 2 Inhibitor Start: 01-09-2025 End: 07-01-2025 take 1 tablet by mouth once daily Start: 05-15-2024 End: 01-09-2025 take 1 tablet by mouth once daily at dinner Jardiance 10 MG tablet Take 1 tablet by mouth Daily (with dinner). 06/09/2024 Active furosemide 20 mg oral tablet (20 sources) Loop Diuretic Start: 03-24-2022 furosemide (LA SIX) 20 mg tablet Take one tab by mouth as need when you have a 3 lb weight gain or more longer then two days. 30 tablet 5 03/24/2022 Active Start: 07-17-2020 Lasix 80 mg or al tablet Dose : 80 mg = 1 tab(s), Oral, Every other day, # 30 tab(s), 0 Refill(s) Start Date: 07/17/20 Status: Ordered Medication Dispense Status: Completed Quantity: 30.0 Unit: tab(s) Total Allowed Fills: 1 Fills Dispensed: 0 Start: 10-01-2015 furosemide 40 mg oral tablet Dose : 40 mg = 1 tab(s), Oral, Every other day, # 30 tab(s), 0 Refill(s) Start Date: 10/01/15 Status: Ordered Medication Dispense Status: Completed Quantity: 30.0 Unit: tab(s) Total Allowed Fills: 1 Fills Dispensed: 0 Start: 06-07-2015 End: 04-24-2023 Furosemide 40 MG tablet Disc ontinued 80 mg PO NEEDED as needed for Edema June 07, 2015 12:00am April 24, 2023 4:37pm Start: 06-07-2015 Furosemide Act chucky 80 MG PO NEEDED June 07, 2015 12:00am Comment on above: Take two tabs by ilana th one day and 1 tab by mouth the next and continue to alternate daily. Take one tab by mout h as need when you have a 3 lb weight gain or more longer then two days. hydrOXYzine pamoate 50 mg oral capsule (7 sources) Antihistamine Start: 03-19-20 End: 10-31-20 hydrOXYzine pamoate 50 mg oral capsule Dose : 50 mg = 1 cap(s), Oral, QID, PRN as needed for anxiety, # 40 cap(s), 0 Refill(s) Start Date: 04/09/21 Status: Ordered Medication Dispense Status: Completed Quantity: 40.0 Unit: cap(s) Total Allowed Fills: 1 Fills Dispensed: 0 Comment on above: Take 1 capsule by mo uth daily at bedtime. [facility] hyoscyamine sulfate 0.125 mg oral tablet (1 source) Start: 09-22-20 End: 09-27-20 hyoscyamine 0.125 mg oral tablet Dose : 0.25 mg = 2 tab(s), Oral, QID, PRN as needed for spasm, # 40 tab(s), 0 Refill(s) Start Date: 09/22/25 Stop Date: 09/27/25 Status: Ordered Medication Dispense Status: Completed Quantity: 40.0 Unit: tab(s) Total Allowed Fills: 1 Fills Dispensed: 0 24 hr metFORMIN hydrochloride 500 mg extended release oral tablet (20 sources) Biguanide Start: 06-26-20 End: 08-05-20 take 2 tablets by mouth once daily Start: 01-26-2024 End: 06-26-2025 Metformin 500 mg tablet exte nded release 24 hr Discontinued 1000 mg PO TWICE A DAY 360 1 January 13, 2025 1:34pm June 26, 2025 2:52pm Start: 02-08-2018 metFORMIN 500 mg oral tablet, extended release Dose : 1,000 mg = 2 tab(s), Oral, BID, # 90 tab(s), 0 Refill(s) Start Date: 02/08/18 Status: Ordered Medication Dispense Status: Completed Quantity: 90.0 Unit: tab(s) Total Allowed Fills: 1 Fills Dispensed: 0 Start: 02-08-2018 MetFORMIN (Eqv -Glucophage XR) 500 mg oral tablet, EXTENDED RELEASE Dose : 500 mg = 1 tab(s), Oral, qDay, # 30 tab(s), 0 Refill(s) Start Date: 04/09/21 Status: Ordered Medication Dispense Status: Completed Quantity: 30.0 Unit: tab(s) Total Allowed Fills: 1 Fills Dispensed: 0 Start: 09-04-2016 End: 05-08-2024 take 2 tablets by mouth twice daily Metformin 500 MG tablet Discontinued 1000 mg PO TWICE A DAY September 04, 2016 12:00am May 08, 2024 11:23am Start: 09-04-2016 End: 01-26-2024 take 2 tablets by mouth twice daily metFORMIN ER (GLUCOPHAGE XR) 500 mg 24 hr tablet Take 2 tablets by mouth two times a day. 120 tablet 3 01/26/2024 Active take 1 tablet by ilana th twice daily at mealtime metformin 1000 MG Tab tablet Take 1 tablet by mouth 2 times daily with meals. Active Comment on above: Take 2 tablets by mo uth twice daily. Take 2 tablets by mo uth two times a day. nadolol 40 mg oral tablet (20 sources) beta-Adrenergic Diane Start: 02-20-2015 End: 06-23-2025 nadolol 40 mg oral tablet Dose : 40 mg = 1 tab(s), Oral, BID, 0 Refill(s) Start Date: 02/20/15 Status: Ordered Medication Dispense Status: Completed Total Allowed Fills: 1 Fills Dispensed: 0 Start: 02-17-2015 End: 03-03-2024 take 1 tablet by mouth twice daily Nadolol 40 MG tablet Discontinued 40 mg PO TWICE A DAY February 17, 2015 12:00am April 24, 2023 4:37pm Comment on above: Take 1 tablet by ilana th twice daily. [employer] Syringes (1CC TB SYRINGE) Misc (4 sources) Start: 07-24-2020 [employer]ringes (1CC TB SYRINGE) Misc Use for weekly Methotrexate injections 84 Each 07/24/2020 Active nitroglycerin 0.02 mg/mg topical ointment (5 sources) Nitrate Vasodilator Start: 01-21-2025 nitroGLYCERIN 2 % ointment Indications: Raynaud's disease without gangrene Apply a thin layer over the affected finger, twice daily 60 g 2 01/21/2025 Active Start: 08-13-2020 nitroGLYCERIN 2 % Ointment ointment Indications: Raynaud's disease without gangrene Apply a thin layer over the affected finger, twice daily 60 g 2 08/13/2020 Active OLANZapine 10 mg oral tablet (20 sources) Atypical Antipsychotic Start: 03-02-2021 End: 05-08-2024 OLANZapine 10 mg oral tablet Dose : 10 mg = 1 tab(s), Oral, Daily, # 30 tab(s), 0 Refill(s) Start Date: 04/09/21 Status: Ordered Medication Dispense Status: Completed Quantity: 30.0 Unit: tab(s) Total Allowed Fills: 1 Fills Dispensed: 0 Comment on above: Take 1 tablet by ilana daily at bedtime. [facility] omeprazole 40 mg delayed release oral capsule (20 sources) Proton Pump Inhibitor Start: 09-04-2023 End: 01-26-2024 take 1 capsule by mouth once daily omeprazole (PRILOSEC) 40 mg capsule Indications: Epigastric pain Take 1 capsule by mouth once daily. 30 capsule 3 01/26/2024 Active Comment on above: Take 1 capsule by mo [facility] once daily. ondansetron 4 mg oral tablet (20 sources) Serotonin-3 Receptor Antagonist Start: 09-22-2025 End: 09-27-2025 Zofran 4 mg oral tablet Dose : 4 mg = 1 tab(s), Oral, q6h, PRN Nausea/Vomiting, X 5 day(s), # 20 tab(s), 0 Refill(s), 09/27/25 6:01:00 PM EST Start Date: 09/22/25 Stop Date: 09/27/25 Status: Ordered Medication Dispense Status: Completed Quantity: 20.0 Unit: tab(s) Total Allowed Fills: 1 Fills Dispensed: 0 Start: 04-04-2025 End: 07-21-2025 take 1 tablet by mouth every twelve hours as needed ondansetron (ZOFRAN) 4 mg tablet Take 1 tablet by mouth every 12 hours as needed for nausea/vomiting. 30 tablet 07/22/2025 Active Start: 04-04-2024 End: 01-13-2025 take 1 tablet by mouth once daily Ondansetron Hcl 4 mg tablet Discontinued 4 mg PO daily May 08, 2024 12:00am January 09, 2025 3:54pm Start: 08-30-2023 End: 09-04-2023 take 1 tablet by mouth every six hours as needed for nausea and nausea ondansetron orally disintegrating (ZOFRAN ODT) 4 mg disintegrating tablet Indications: Nausea Take 1 tablet by mouth every 6 hours as needed for nausea/vomiting. 20 tablet 1 08/30/2023 09/04/2023 Discontinued Start: 07-24-2019 End: 03-02-2021 Ondansetron Hcl 4 MG tablet Discontinued 4 mg PO NEEDED as needed for Nausea July 24, 2019 12:00am March 02, 2021 1:35pm Start: 07-24-2019 End: 03-02-2021 Ondansetron Hcl 4 MG tablet Discontinued 4 mg PO NEEDED as needed for Nausea July 24, 2019 12:00am March 02, 2021 1:35pm Comment on above: Take 1 tablet by ilana every 6 hours as needed for nausea/vomiting. prazosin 1 mg oral capsule (20 sources) alpha-Adrenergic Diane Start: 03-02-2021 End: 06-26-2025 prazosin 1 mg oral capsule Dose : 1 mg = 1 cap(s), Oral, BID, 0 Refill(s) Start Date: 04/09/21 Status: Ordered Medication Dispense Status: Completed Total Allowed Fills: 1 Fills Dispensed: 0 Start: 09-21-2020 take 3 capsules by m outh once daily at bedtime Prazosin 1 MG capsule take 3 capsules by mouth every night at bedtime 11/10/2024 Active Comment on above: Take 3 caps AT BEDTI ME for Anxiety promethazine hydrochloride 25 mg oral tablet (20 sources) Phenothiazine Start: 06-25-20 take 1 tablet by mouth every four hours as needed for nausea promethazine (PHENERGAN) 25 mg tablet Indications: Gastroenteritis Take 1 tablet by mouth every 4 hours as needed for nausea/vomiting. 30 tablet 06/25/2024 Active Start: 12-05-2023 End: 06-25-2024 take 1 tablet by mouth every six hours as needed promethazine (PHENERGAN) 12.5 mg tablet Take 1 tablet by mouth every 6 hours as needed. 30 tablet 01/26/2024 02/16/2024 Discontinued Start: 09-04-2023 End: 10-10-2023 take 1 tablet by mouth every six hours as needed promethazine (PHENERGAN) 12.5 mg tablet Take 1 tablet by mouth every 6 hours as needed. 30 tablet 09/04/2023 09/25/2023 Discontinued Start: 12-28-2020 End: 10-31-2022 take 1 tablet by mouth every six hours as needed promethazine (PHENERGAN) 12.5 mg tablet Take 1 tablet by mouth every 6 hours as needed. 30 tablet 0 12/28/2020 10/31/2022 Discontinued Comment on above: Take 1 tablet by ilana th every 6 hours as needed. spironolactone 50 mg oral tablet (8 sources) Aldosterone Antagonist Start: End: spironolactone 50 mg oral tablet Dose : 50 mg = 1 tab(s), Oral, qDay, # 60 tab(s), 0 Refill(s) Start Date: 10/01/15 Status: Ordered Medication Dispense Status: Completed Quantity: 60.0 Unit: tab(s) Total Allowed Fills: 1 Fills Dispensed: 0 Comment on above: Take 1 tablet by ilana th once daily. sulfaSALAzine 500 mg oral tablet (9 sources) Aminosalicylate Start: 025 take 5 tablets by mouth once sulfaSALAzine (AZULFIDINE) 500 mg tablet Take 5 tablets by mouth once daily. Per Rheumatology 01/10/2025 Active Start: 01-09-2025 sulfaSALAzine 500 MG tablet Indications: Inflammatory arthritis 2 tabs in the morning and 3 tabs at bedtime 150 tablet 3 01/09/2025 Active Start: 11-27-2024 sulfaSALAzine 500 MG tablet Indications: Inflammatory arthritis One tab in the morning and 2 tabs at bedtime 90 tablet 1 11/27/2024 Active topiramate 100 mg oral table t (7 sources) Start: 04-09-2021 topiramate 100 mg oral tablet Dose : 100 mg = 1 tab(s), Oral, BID, # 180 tab(s), 0 Refill(s) Start Date: 04/09/21 Status: Ordered Medication Dispense Status: Completed Quantity: 180.0 Unit: tab(s) Total Allowed Fills: 1 Fills Dispensed: 0 Start: 10-21-2020 End: 10-31-2022 topiramate (TOPAMAX) 100 mg tablet Take 1.5 tabs [facility] a [facility] 0 10/21/2020 10/31/2022 Discontinued Comment on above: Take 1.5 tabs twice a day [facility] TRUE METRIX GLUCOSE METER (15 sources) Start: 05-08-2024 TRUE METRIX GLUCOSE METER as directed. 05/08/2024 Active Start: 05-08-2024 TRUE METRIX GL UCOSE METER as directed. 0 05/08/2024 Active Completed/Discontinued Medications Medication Drug Class(es) Dates Sig (Normalized) Sig (Original) acetaminophen 325 mg / oxyCODONE hydrochloride 5 mg oral tablet (20 sources) Opioid Agonist Start: 08-22-2019 End: 03-02-2021 take 1-2 tablets by mouth every six hours as needed for pain Oxycodone-Acetamino phen (Percocet) 5-325 mg tablet Discontinued 1 {tbl} PO Q4H 20 August 22, 2019 March 02, 2021 1:35pm take 1-2 tabs every 6 hours as needed for pain, stop all other pain meds and antitussives Start: 08-15-2019 End: 03-02-2021 Oxycodone-Acetaminophen (Per cocet) 5-325 mg tablet Discontinued 1 {tbl} PO Q4H as needed for pain 20 0 August 15, 2019 March 02, 2021 1:35pm take as directed, stop all other narcotics Start: 07-31-2019 End: 08-13-2019 Oxycodone-Acetaminophen 5-32 5 mg tablet Discontinued 1 - 2 {tbl} PO EVERY 6 HOURS NEEDED as needed for Pain 28 5 August 08, 2019 August 12, 2019 12:00am August 13, 2019 12:08am Postoperative pain Other acute postprocedural pain Start: 07-31-2019 End: 08-13-2019 take 1 tablet by mouth every six hours as needed Oxycodone-Acetaminophen Discontinued 1 - 2 TABLET PO EVERY 6 HOURS NEEDED 28 5 August 08, 2019 August 13, 2019 12:08am amoxicillin 875 mg / clavulanate 125 mg oral tablet (11 sources) Penicillin-class Antibacterial Start: 04-24-2023 End: 05-04-2023 Amoxicillin-Pot Clavulanate 875-125 mg tablet Discontinued 1 {tbl} PO Q12H 20 10 April 24, 2023 12:00am May 03, 2023 12:00am May 04, 2023 12:04am Acute sinusitis, unspecified atorvastatin 10 mg oral tablet (11 sources) HMG-CoA Reductase Inhibitor Start: 08-20-2024 End: 01-09-2025 take 1 tablet by mouth at bedtime Atorvastatin 10 mg tablet Discontinued 10 mg PO AT BEDTIME 30 August 20, 2024 12:00am January 09, 2025 3:54pm cholecalciferol 1.25 mg oral capsule (16 sources) Vitamin D Start: 03-27-2022 End: 08-30-2023 take 1 capsule by mouth every week cholecalciferol, Vitamin D3, (VITAMIN D3) 1,250 mcg (50,000 unit) cap capsule Take 1 capsule by mouth one time a week. 12 capsule 3 03/27/2022 08/30/2023 Discontinued (Other) Comment on above: Take 1 capsule by [facility] one time a week. cyclobenzaprine hydrochloride 5 mg oral tablet (20 sources) Muscle Relaxant Start: 09-26-2024 End: 06-05-2025 take 1 tablet by mouth three times daily as needed for muscle spasms Cyclobenzaprine 5 mg tablet Discontinued 5 mg PO THREE TIMES A DAY as needed for muscle spasm May 07, 2025 9:34am June 05, 2025 12:06pm enteric contrast (will be provided with radiology test) (3 sources) Start: 09-04-2023 End: 09-05-2023 enteric contrast (will be provided with radiology test) Indications: Epigastric pain , Bloating , Diarrhea, unspecified type , Nausea For CT ABD/PEL W IVCON Routine order Administer, As Directed One Time Only, via Oral, Rectal, both Oral and Rectal, Enteric Tube, Stoma or Indwelling Catheter, Enteric Contrast as designated per enteric contrast guidelines 1 Each 09/04/2023 09/05/2023 Start: 09-04-2023 End: 09-05-2023 enteric contrast (will be pr ovided with radiology test) Indications: Epigastric pain , Bloating , Diarrhea, unspecified type , Nausea For CT ABD/PEL W IVCON Routine order Administer, As Directed One Time Only, via Oral, Rectal, both Oral and Rectal, Enteric Tube, Stoma or Indwelling Catheter, Enteric Contrast as designated per enteric contrast guidelines 1 Each 0 09/04/2023 09/05/2023 Start: 09-04-2023 End: 09-05-2023 enteric contrast (will be pr ovided with radiology test) Indications: Epigastric pain , Bloating , Diarrhea, unspecified type , Nausea For CT ABD/PEL W IVCON Routine order Administer, As Directed One Time Only, via Oral, Rectal, both Oral and Rectal, Enteric Tube, Stoma or Indwelling Catheter, Enteric Contrast as designated per enteric contrast guidelines 1 Each 0 09/04/2023 09/05/2023 Active Comment on above: For CT ABD/PEL W IVC ON Routine order Administer, As Directed One Time Only, via Oral, Rectal, both Oral and Rectal, Enteric Tube, Stoma or Indwelling Catheter, Enteric Contrast as designated per enteric contrast guidelines folic acid 1 mg oral tablet (1 source) Start: 9 End: take 1 tablet by mouth once daily folic acid 1 MG Tab tablet Indications: Inflammatory arthritis Take 1 tablet by mouth daily. 30 tablet 2 10/03/2019 11/27/2024 Discontinued (Therapy completed) gabapentin 600 mg oral tablet (20 sources) Anti-epileptic Agent Start: 5 End: Gabapentin 600 mg tablet Discontinued 300 mg PO AT BEDTIME June 26, 2025 2:50pm July 31, 2025 10:32am 300mg qhs Start: 03-02-2021 End: 05-01-2025 take 1 tablet by mouth at bedtime Gabapentin 600 mg tablet Discontinued 600 mg PO AT BEDTIME January 09, 2025 3:54pm May 01, 2025 11:14am Comment on above: Take 1 tablet by ilana th twice daily for 180 days. [facility] hydroxychloroquine sulfate 200 mg oral tablet (13 sources) Antimalarial, Antirheumatic Agent Start : 09-19 End: 03-02 take 1 tablet by mouth twice daily Hydroxychloroquine (Plaquenil) 200 mg tablet Discontinued 200 mg PO TWICE A DAY September 19, 2019 1:00am March 02, 2021 1:34pm 3 ml insulin glargine 100 unt/ml pen injector (20 sources) Insulin Analog Start : 11-29 End: inject 10 [IU] by subcutaneous injection once daily at bedtime insulin glargine (LANTUS SOLOSTAR, BASAGLAR KWIKPEN) 100 unit/mL (3 mL) Inject 10 Units subcutaneously daily at bedtime. 5 Each 3 11/29/2022 01/11/2024 Discontinued Start: 11-29-2022 inject 10 [IU] by carranza bcutaneous injection once daily at bedtime insulin glargine (LANTUS SOLOSTAR, BASAGLAR KWIKPEN) 100 unit/mL (3 mL) Inject 10 Units subcutaneously daily at bedtime. 5 Each 3 11/29/2022 Active Start: 07-24-2019 End: 03-02-2021 Insulin Glargine 100 UNIT/ML insulin pen Discontinued 10 U SC WITH LUNCH July 24, 2019 12:00am March 02, 2021 1:35pm Comment on above: Inject 10 Units subc utaneously daily at bedtime. 24 hr isosorbide mononitrate 30 mg extended release oral tablet (8 sources) Nitrate Vasodilator Start: 10-16-20 End: 11-27-19 take 1 tablet by mouth once daily in the morning isosorbide mononitrate ER (IMDUR) 30 mg 24 hr tablet Take 1 tablet by mouth daily every morning. 90 tablet 1 03/19/2021 10/31/2022 Discontinued Start: 07-17-2020 Imdur use i sosorbide mononitrate Oral, 0 Refill(s) Start Date: 07/17/20 Status: Ordered Medication Dispense Status: Completed Total Allowed Fills: 1 Fills Dispensed: 0 Start: 07-17-2020 Imdur use i sosorbide mononitrate Oral, 0 Refill(s) Start Date: 07/17/20 Status: Ordered Repeat number: 1 Start: 07-17-2020 Imdur use i sosorbide mononitrate Oral, 0 Refill(s) Start Date: 07/17/20 Status: Ordered Comment on above: Take 1 tablet by ilana th daily every morning. iv contrast (will be provided with radiology test) (3 sources) Start: 09-04-2023 End: 09-05-2023 iv contrast (will be provided with radiology test) Indications: Epigastric pain , Bloating , Diarrhea, unspecified type , Nausea CT ABD/PEL -Inject, intravenously, once for 1 dose.No IV access, insert saline lock prior to the beginning of sedation, infusion, injection of imaging exam. Discontinue saline lock post exam. If Pt. has a central line or IVAD, may access for administration according to line specific nursing protocol. Once exam is complete flush line and de-access according to line specific nursing protocol in the CT contrast administration guidelines link. 1 Each 09/04/2023 09/05/2023 Start: 09-04-2023 End: 09-05-2023 iv contrast (will be provide d with radiology test) Indications: Epigastric pain , Bloating , Diarrhea, unspecified type , Nausea CT ABD/PEL -Inject, intravenously, once for 1 dose.No IV access, insert saline lock prior to the beginning of sedation, infusion, injection of imaging exam. Discontinue saline lock post exam. If Pt. has a central line or IVAD, may access for administration according to line specific nursing protocol. Once exam is complete flush line and de-access according to line specific nursing protocol in the CT contrast administration guidelines link. 1 Each 0 09/04/2023 09/05/2023 Start: 09-04-2023 End: 09-05-2023 iv contrast (will be provide d with radiology test) Indications: Epigastric pain , Bloating , Diarrhea, unspecified type , Nausea CT ABD/PEL -Inject, intravenously, once for 1 dose.No IV access, insert saline lock prior to the beginning of sedation, infusion, injection of imaging exam. Discontinue saline lock post exam. If Pt. has a central line or IVAD, may access for administration according to line specific nursing protocol. Once exam is complete flush line and de-access according to line specific nursing protocol in the CT contrast administration guidelines link. 1 Each 0 09/04/2023 09/05/2023 Active Comment on above: CT ABD/PEL -Inject, intravenously, once for 1 dose.No IV access, insert saline lock prior to the beginning of sedation, infusion, injection of imaging exam. Discontinue saline lock post exam. If Pt. has a central line or IVAD, may access for administration according to line specific nursing protocol. Once exam is complete flush line and de-access according to line specific nursing protocol in the CT contrast administration guidelines link. LORazepam 1 mg oral tablet (16 sources) Benzodiazepine Start: 09-25-2024 End: 09-25-2024 LORazepam (Ativan) 1 MG tablet Indications: Chronic dental caries extending to pulp Take 1 Tablet by mouth 1 time if needed for Anxiety for up to 1 dose. 1 hour before dental appointment. 1 Tablet 09/25/2024 09/25/2024 Start: 09-04-2016 End: 03-02-2021 take 1 tablet by mouth once daily as needed for anxiety Lorazepam 1 MG tablet Discontinued 1 mg PO DAILY NEEDED as needed for Anxiety September 04, 2016 12:00am March 02, 2021 1:35pm magnesium oxide 250 mg oral tablet (13 sources) Start: 07-24-2019 End: 03-02-2021 take 1 tablet by mouth once daily Magnesium Oxide 250 MG tablet Discontinued 250 mg PO DAILY July 24, 2019 12:00am March 02, 2021 1:35pm meloxicam 7.5 mg oral tablet (20 sources) Nonsteroidal Anti-inflammatory Drug Start: 09-26-2024 End: 01-09-2025 take 1 tablet by mouth once daily Meloxicam 7.5 mg tablet Discontinued 7.5 mg PO daily 30 November 13, 2024 6:59pm January 09, 2025 3:54pm 2 ml methotrexate 25 mg/ml injection (1 source) Folate Analog Metabolic Inhibitor Start: 09-25-2020 End: 11-27-2024 inject 0.6 mL by subcutaneous injection every week methotrexate 25 MG/ML Solution Indications: Inflammatory arthritis Inject 0.6 mL under the skin once a week. 2.4 mL 2 09/25/2020 11/27/2024 Discontinued (Therapy completed) methotrexate sodium/PF (METHOTREXATE LPF INJECTION) (4 sources) End: 10-31-2022 methotrexate sodium/PF (METHOTREXATE LPF INJECTION) 0.8 mL by INJECTION(UNSPECI FIED PARENTERAL ROUTES) route one time a week. 0 10/31/2022 Discontinued methotrexate sod ium/PF (METHOTREXATE LPF INJECTION) 0.8 mL by INJECTION(UNSPECIFIED PARENTERAL ROUTES) route one time a week. 0 Active Comment on above: 0.8 mL by INJECTION( UNSPECIFIED PARENTERAL ROUTES) route one time a week. mirtazapine 15 mg oral tablet (20 sources) Start: 025 End: 025 take 2 tablets by mouth at bedtime Mirtazapine 15 mg tablet Discontinued 30 mg PO AT BEDTIME May 01, 2025 11:13am June 26, 2025 2:51pm Start: 10-29-2024 take 1 tablet by ilana th at bedtime Mirtazapine 30 MG tablet Take 1 tablet by mouth at bedtime. 10/29/2024 Active Start: 12-18-2023 End: 05-01-2025 take 1 tablet by mouth at bedtime Mirtazapine 15 mg tablet Discontinued 15 mg PO AT BEDTIME 30 January 13, 2025 1:32pm May 01, 2025 11:14am Comment on above: Take 1 Tablet By Ora l Route at bedtime. perflutren lipid microspheres 1.3 mL in NaCl (PF) 0.9% 10 mL injection (DEFINITY) (20 sources) Start: 3 End: 4 perflutren lipid microspheres 1.3 mL in NaCl (PF) 0.9% 10 mL injection (DEFINITY) predniSONE 10 mg oral tablet (11 sources) Start: 4 End: 5 take 2 tablets by mouth once daily, then take 1 tablet by mouth once daily, then take 5 mg by mouth once daily Prednisone 10 mg tablet Discontinued 0 PO daily September 19, 2024 1:00am January 09, 2025 3:53pm orally daily; take 20mg daily for 3 days, 10mg daily for 3 days, 5mg days rosuvastatin calcium 5 mg oral tablet (20 sources) HMG-CoA Reductase Inhibitor Start: 3 End: 4 take 1 tablet by mouth once daily rosuvastatin (CRESTOR) 5 mg tablet Take 1 tablet by mouth once daily. 30 tablet 5 09/04/2023 01/11/2024 Discontinued Start: 03-27-2022 End: 11-27-2022 take 1 tablet by mouth every other day rosuvastatin (CRESTOR) 5 mg tablet Take 1 tablet by mouth every other day. 15 tablet 5 03/27/2022 11/27/2022 Discontinued Comment on above: Take 1 tablet by ilana th every other day. Take 1 tablet by ilana th once daily. Semaglutide (11 sources) Start: 05-08-2024 End: 05-15-2024 Semaglutide (Ozempic) 0.25 mg or 0.5 mg (2 mg/3 mL) pen injector Discontinued 0.25 mg SC EVERY WEEK 3 May 08, 2024 12:00am May 15, 2024 10:27am for 2 weeks, then increase to 0.5mg Start: 05-08-2024 End: 05-15-2024 Semaglutide (Ozempic) 0.25 m g or 0.5 mg (2 mg/3 mL) pen injector Discontinued 0.25 mg SC EVERY WEEK 3 May 08, 2024 12:00am May 15, 2024 10:27am for 2 weeks, then increase to 0.5mg 125 ml sodium chloride 9 mg/ml prefilled syringe (20 sources) Start: 01-27-2023 End: 04-27-2024 sodium chloride 0.9 % (flush) 10 mL (BD POSIFLUSH) traMADol hydrochloride 50 mg oral tablet (20 sources) Opioid Agonist Start: 06-12-2025 End: 07-31-2025 take 1 tablet by mouth every eight hours as needed for pain Tramadol 50 mg tablet Discontinued 50 mg PO Q8H as needed for pain (scale score 7-10) 21 0 July 11, 2025 5:03pm July 31, 2025 10:33am valACYclovir 1000 mg oral tablet (14 sources) Herpesvirus Nucleoside Analog DNA Polymerase Inhibitor, Herpes Simplex Virus Nucleoside Analog DNA Polymerase Inhibitor, Herpes Zoster Virus Nucleoside Analog DNA Polymerase Inhibitor Start: 05-30-2024 End: 06-06-2024 Valacyclovir 1 gram tablet Discontinued 1000 mg PO Q8H 21 7 0 May 30, 2024 12:00am June 05, 2024 12:00am June 06, 2024 12:04am Start: 03-26-2024 End: 04-05-2024 take 1 tablet by mouth three times daily valACYclovir (VALTREX) 1 gram tablet Indications: Herpes zoster with complication Take 1 tablet by mouth three times a day for 10 days. 30 tablet 0 03/26/2024 04/05/2024 Active Problems Active Problems Problem Classification Problem Date Documented Da te Episodic/Chronic Abdominal pain (20 sources) Epigastric pain; Translations: [Epigastric pain] Onset: 10-05-2010 Resolved: 01-18-2013 01-04-2019 Episodic Anxiety disorders (20 sources) Posttraumatic stress disorder; Translations: [Post-traumatic stress disorder, unspecified] Onset: 01-02-2016 10-21-2020 Chronic Asthma (20 sources) Mild intermittent asthma; Translations: [Mild intermittent asthma, uncomplicated] Onset: 11-15-2016 11-15-2016 Chronic Cardiac dysrhythmias (3 sources) Tachycardia 02-08-2018 Episodic Diabetes mellitus with complications (20 sources) Type 2 diabetes mellitus; Translations: [Type 2 diabetes mellitus with hyperglycemia] Onset: 05-03-2016 11-04-2019 Chronic Diabetes mellitus without complication (20 sources) Diabetes mellitus; Translations: [Type 2 diabetes mellitus without complications] Onset: 07-31-2025 01-18-2023 Chronic Diseases of white blood cells (1 source) Leukocytosis; Translations: [Elevated white blood cell count, unspecified] Chronic Disorders of lipid metabolism (20 sources) Dyslipidemia; Translations: [Hyperlipidemia, unspecified] Onset: 06-05-2014 06-05-2014 Chronic Disorders of teeth and jaw (16 sources) Infection of tooth; Translations: [Periapical abscess without sinus] Onset: 09-25-2024 07-24-2023 Episodic Essential hypertension (20 sources) Essential hypertension; Translations: [Essential (primary) hypertension] Onset: 04-26-2016 04-26-2016 Chronic Fluid and electrolyte disorders (13 sources) Mild dehydration; Translations: [Dehydration] 01-09-2019 Episodic Heart valve disorders (20 sources) Mitral valve prolapse; Translations: [Nonrheumatic mitral (valve) prolapse] 04-22-2014 Chronic Heart valve disorders (3 sources) Heart murmur 02-08-2018 Episodic Hepatitis (20 sources) Nonalcoholic steatohepatitis; Translations: [Nonalcoholic steatohepatitis (SANTOS)] Onset: 09-04-2023 09-04-2023 Chronic Mood disorders (20 sources) Recurrent major depressive episodes, moderate ; Translations: [Major depressive disorder, recurrent, moderate] Onset: 11-15-2016 10-21-2020 Chronic Mycoses (1 source) Candidiasis of skin and nail; Translations: [Skin yeast infection] Onset: 08-18-2025 Episodic Nausea and vomiting (5 sources) Nausea; Translations: [Nausea] 08-30-2023 Episodic Noninfectious gastroenteritis (8 sources) Chronic diarrhea; Translations: [Noninfective gastroenteritis and colitis, unspecified] Onset: 09-22-2025 01-11-2024 Episodic Nonmalignant breast conditions (20 sources) Large breast; Translations: [Hypertrophy of breast] Onset: 08-23-2017 05-17-2018 Episodic Nonspecific chest pain (15 sources) Chest pain; Translations: [Chest pain, unspecified] Onset: 01-20-2023 01-18-2023 Episodic Nutritional deficiencies (20 sources) Vitamin D deficiency; Translations: [Vitamin D deficiency, unspecified] Onset: 02-21-2019 04-02-2019 Chronic Osteoarthritis (10 sources) Arthritis; Translations: [Unspecified osteoarthritis, unspecified site] Onset: 07-25-2019 11-27-2024 Chronic Other aftercare (1 source) H/O: high risk medication; Translations: [Other long chain beamer (current) drug therapy] 04-09-2025 Episodic Other circulatory disease (2 sources) Raynaud's disease; Translations: [Raynaud's syndrome without gangrene] 11-27-2024 Chronic Other circulatory disease (2 sources) Raynaud's syndrome without gangrene; Translations: [Raynaud's syndrome without gangrene] Onset: 04-09-2025 Chronic Other congenital anomalies (2 sources) Umbilicus finding; 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, unspecified] 07-31-2025 Chronic Other connective tissue disease (13 sources) Calcific tendinitis; Translations: [Calcific tendinitis, unspecified site] 03-23-2021 Episodic Other connective tissue disease (2 sources) Bursitis of shoulder; Translations: [Bursitis of left shoulder] 03-23-2021 Episodic Other connective tissue disease (11 sources) Bursitis of left shoulder; Translations: [Bursitis of left shoulder] 05-08-2024 Episodic Other ear and sense organ disorders (1 source) Impacted cerumen in left ear; Translations: [Impacted cerumen, left ear] Episodic Other endocrine disorders (20 sources) Polycystic ovary syndrome; Translations: [Polycystic ovarian syndrome] Onset: 01-18-2013 04-22-2014 Chronic Other endocrine disorders (3 sources) Polycystic ovaries Onset: 11-13-2004 10-14-2015 Chronic Other female genital disorders (20 sources) Abnormal uterine bleeding; Translations: [Other specified abnormal uterine and vaginal bleeding] Onset: 01-18-2013 04-22-2014 Chronic Other female genital disorders (4 sources) Mass of left ovary; Translations: [Other noninflammatory disorders of ovary, fallopian tube and broad ligament] 07-07-2025 Episodic Comment on above: hemorrhagic cyst Other gastrointestinal disorders (3 sources) Irritable bowel syndrome 02-08-2018 Chronic Other gastrointestinal disorders (1 source) Intestinal malabsorption; Translations: [Intestinal malabsorption, unspecified] 06-27-2024 Chronic Other gastrointestinal disorders (14 sources) Celiac disease; Translations: [Celiac disease] 01-09-2025 Chronic Other gastrointestinal disorders (1 source) Celiac disease; Translations: [Celiac disease (HCC)] Onset: 09-04-2025 Chronic Other gastrointestinal disorders (6 sources) Diarrhea; Translations: [Diarrhea, unspecified] 08-28-2023 Episodic Other gastrointestinal disorders (3 sources) Abdominal bloating; Translations: [Abdominal distension (gaseous)] 09-04-2023 Episodic Other injuries and conditions due to external causes (14 sources) History of fall; Translations: [History of falling] 06-12-2025 Episodic Other injuries and conditions due to external causes (1 source) History of falling; Translations: [History of falling] Onset: 06-12-2025 Episodic Other liver diseases (20 sources) Steatosis of liver; Translations: [Fatty (change of) liver, not elsewhere classified] Onset: 06-13-2014 06-13-2014 Chronic Other liver diseases (1 source) Abnormal levels of other serum enzymes; Translations: [Elevated liver enzymes] Onset: 09-15-2025 Episodic Other lower respiratory disease (1 source) Dyspnea; Translations: [Dyspnea, unspecified] Onset: 01-20-2023 Episodic Other lower respiratory disease (1 source) Dyspnea on exertion; Translations: [Other forms of dyspnea] Episodic Other non-traumatic joint disorders (15 sources) Hip pain; Translations: [Pain in right hip] 06-04-2025 Episodic Other nutritional; endocrine; and metabolic disorders (20 sources) Body mass index 30+ - obesity; Translations: [Obesity, unspecified] Onset: 07-13-2017 09-29-2020 Chronic Other nutritional; endocrine; and metabolic disorders (20 sources) Hypomagnesemia; Translations: [Hypomagnesemia] Onset: 04-02-2019 04-02-2019 Chronic Other nutritional; endocrine; and metabolic disorders (8 sources) Body mass index 40+ - severely obese; Translations: [Morbid (severe) obesity due to excess calories] Onset: 06-12-2019 02-08-2018 Chronic Other nutritional; endocrine; and metabolic disorders (3 sources) Obesity 10-14-2015 Chronic Other nutritional; endocrine; and metabolic disorders (1 source) Intolerance to lactose; Translations: [Lactose intolerance, unspecified] 02-04-2025 Chronic Other screening for suspected conditions (not mental disorders or infectious disease) (20 sources) Abnormal cervical Papanicolaou smear; Translations: [Unspecified abnormal cytological findings in specimens from cervix uteri] Onset: 10-05-2010 04-22-2014 Episodic Other upper respiratory infections (1 source) Chronic sinusitis, unspecified; Translations: [Unspecified sinusitis (chronic)] 09-30-2024 Chronic Pulmonary heart disease (20 sources) Pulmonary hypertension; Translations: [Pulmonary hypertension, unspecified] Onset: 06-11-2019 Chronic Residual codes; unclassified (8 sources) Pain; Translations: [Pain, unspecified] 06-11-2025 Episodic Residual codes; unclassified (1 source) Pain, unspecified; Translations: [Pain, unspecified] Onset: 06-12-2025 Episodic Rheumatoid arthritis and related disease (20 sources) Seronegative rheumatoid arthritis; Translations: [Rheumatoid arthritis without rheumatoid factor, unspecified site] Onset: 07-26-2019 07-29-2019 Chronic Skull and face fractures (11 sources) Fracture of tooth ; Translations: [Fracture of tooth (traumatic), initial encounter for closed fracture] 05-07-2024 Episodic Systemic lupus erythematosus and connective tissue disorders (15 sources) Autoimmune disease; Translations: [Systemic involvement of connective tissue, unspecified] Onset: 09-26-2024 01-09-2025 Chronic Unclassified (1 source) Pulmonary hypertension, unspecified; Translations: [Pulmonary hypertension, unspecified] Onset: 07-27-2017 Unclassified (1 source) Unknown / UNK(Unknown) Onset: 07-27-2017 Unclassified (13 sources) MVP 01-08-2019 Unclassified (2 sources) New Patient Onset: 04-17-2025 04-17-2025 Unclassified (2 sources) Access to Medication(s) Onset: 04-17-2025 04-17-2025 Unclassified (2 sources) Safety: Avoid toxicity that would cause discontinuation Onset: 04-17-2025 04-17-2025 Unclassified (2 sources) Identify and eliminate barriers to patient adherence Onset: 04-17-2025 04-17-2025 Unclassified (4 sources) Ensure that patient is receiving therapeutic benefit Onset: 04-17-2025 04-17-2025 Unclassified (2 sources) MyChart Onset: 04-17-2025 04-17-2025 Viral infection (13 sources) Herpes zoster; Translations: [Zoster with other complications] 03-26-2024 Episodic Past or Other Problems Problem Classification Problem Date Documented Date Episodic/Chronic Allergic reactions (1 source) Allergy, unspecified, initial encounter; Translations: [Allergy, unspecified, initial encounter] Onset: 04-11-2025 Episodic Immunizations and screening for infectious disease (14 sources) Vaccination needed; Translations: [Encounter for immunization] Onset: 09-26-2024 Episodic Medical examination/evaluatio n (1 source) Encounter for preprocedural cardiovascular examination; Translations: [Encounter for preprocedural cardiovascular examination] Onset: 01-31-2018 Episodic Other aftercare (20 sources) Drug therapy finding; Translations: [Other long chain beamer (current) drug therapy] Onset: 11-15-2016 Resolved: 03-24-2022 02-12-2020 Episodic Other aftercare (20 sources) Patient encounter status; Translations: [Other halfway (current) drug therapy] Onset: 03-24-2022 Episodic Other aftercare (3 sources) Other long chain beamer (current) drug therapy; Translations: [Other long chain beamer (current) drug therapy] Onset: 03-18-2025 Episodic Other connective tissue disease (20 sources) Spasm; Translations: [Other muscle spasm] Onset: 08-23-2017 05-17-2018 Episodic Other hematologic conditions (20 sources) Erythrocytosis; Translations: [Secondary polycythemia] Onset: 03-27-2022 03-27-2022 Episodic Other non-traumatic joint disorders (19 sources) Multiple joint pain; Translations: [Pain in unspecified joint] Onset: 07-10-2019 07-10-2019 Episodic Other non-traumatic joint disorders (2 sources) Pain in right hip; Translations: [Pain in right hip] Onset: 06-04-2025 Episodic Other non-traumatic joint disorders (1 source) Pain in unspecified joint; Translations: [Pain in unspecified joint] Onset: 09-26-2024 Episodic Other nutritional; endocrine; and metabolic disorders (20 sources) Morbid obesity; Translations: [Morbid (severe) obesity due to excess calories] Onset: 03-03-2015 Resolved: 07-13-2017 07-13-2017 Chronic Other skin disorders (1 source) Rash and other nonspecific skin eruption; Translations: [Rash] Onset: 06-19-2025 Episodic Spondylosis; intervertebral disc disorders; other back problems (20 sources) Neck pain; Translations: [Cervicalgia] Onset: 08-23-2017 05-17-2018 Episodic Sprains and strains (3 sources) Injury of muscle and tendon at hip and thigh level; Translations: [Strain of muscle, fascia and tendon of unspecified hip, initial encounter] Onset: 06-04-2025 Episodic Suicide and intentional self-inflicted injury (20 sources) Suicidal behavior; Translations: [Suicide attempt, initial encounter] Onset: 08-19-2020 Resolved: 03-24-2022 08-19-2020 Episodic Unclassified (1 source) Pulmonary hypertension, unspecified Onset: 01-31-2018 Unclassified (1 source) Patient encounter status 12-21-2024 Results Test Name Value Interpretation Reference Range Facility .Auto Diffon 09-22-2025 Basophil, Absolute 0.1 10 3/mcL Normal 0.0-0.3 [facility] Comment on above: Performed By: #### A SATISHDAVID, GFR, BMP, CBC, FRANSISCO #### [id number] [place], [place] [address] Basophils/100 WBC (Bld) 0.6 % Normal 0.0-2.5 [facility] Comment on above: Performed By: #### A SATISH, ADIFF, GFR, BMP, CBC, W #### [address] [address] Eosinophil, Absolute 0.1 10 3/mcL Normal 0.0-0.7 [facility] Comment on above: Performed By: #### A SATISH, ADIFF, GFR, BMP, CBC, MDW #### [address] [address] Eosinophils/100 WBC (Bld) 1.1 % Normal 0.0-6.0 [facility] Comment on above: Performed By: #### A SATISH, ADIFF, GFR, BMP, CBC, MDW #### [address] [address] Lymphocyte, Absolute 3.0 10 3/mcL Normal 0.9-4.3 [facility] Comment on above: Performed By: #### A SATISH, ADIFF, GFR, BMP, CBC, MDW #### [address] [address] Lymphocytes/100 WBC (Bld) 31.8 % Normal 20.0-40.0 [facility] Comment on above: Performed By: #### A SATSIH, ADIFF, GFR, BMP, CBC, MDW #### [address] [address] Monocyte, Absolute 0.9 10 3/mcL Normal 0.1-1.4 [facility] Comment on above: Performed By: #### A SATISH, ADIFF, GFR, BMP, CBC, MDW #### [address] [address] Monocytes/100 WBC (Bld) 9.0 % Normal 2.0-13.0 [facility] Comment on above: Performed By: #### A SATISH, ADIFF, GFR, BMP, CBC, MDW #### [address] [address] Neutrophils/100 WBC (Bld) 57.5 % Normal 50.0-75.0 [facility] Comment on above: Performed By: #### A SATISH, ADIFF, GFR, BMP, CBC, MDW #### [address] [place], [place] [address] .GFRon 09-22-2025 Estimated Glomerular Filtration Rate 118 ml/min/1.73sqm Normal [facility] Comment on above: Result Comment: Stages of Chronic Kidney Disease (CKD) Stage Description eGFR(ml/min/1.73 sq.m.) CKD 1 Normal kidney function or >=90 normal kindney function with possible kidney damage (ex. Proteinuria) CKD 2 Kidney damage with mild loss 60-89 of kidney function CKD 3a Mild to moderate loss of kidney 45-59 function CKD 3b Moderate to severe loss of 30-44 of kindey function CKD 4 Severe loss of kidney function 15-29 CKD 5 Kidney failure <15 Note: (go live 2024) the eGFR calculation was updated to the 2020 CKD-EPI creatinine equation without a race factor to calculate the eGFR results. Performed By: #### A SATISH, ADIFF, GFR, BMP, CBC, MDW #### [address] [address] .MDWon 09-22-2025 Monocyte Distribution Width 17.47 Normal 0.00-20.00 [facility] Comment on above: Result Comment: For ED adult patients suspected of sepsis, MDW<=20.0 does not rule out sepsis or risk of sepsis Performed By: #### A SATISH, ADIFF, GFR, BMP, CBC, MDW #### [address] [address] .NEUABSon 09-22-2025 Neutrophil, Absolute 5.5 10 3/mcL Normal 2.3-8.1 [facility] Comment on above: Performed By: #### A SATISH, ADIFF, GFR, BMP, CBC, MDW #### [address] [address] BMPon 09-22-2025 BUN/Creatinine Ratio 19 ratio Normal 7-27 [facility] Comment on above: Performed By: #### A SATISH, ADIFF, GFR, BMP, CBC, MDW #### [address] [address] Calcium [Mass/Vol] 9.1 mg/dL Normal 8.4-10.2 [facility] Comment on above: Performed By: #### A SATISH, ADIFF, GFR, BMP, CBC, FRANSISCO #### [place] [address] Chloride [Moles/Vol] 101 mmol/L Normal 98-107 [facility] Comment on above: Performed By: #### A SATISH, ADIFF, GFR, BMP, CBC, FRANSISCO #### [place] [address] CO2 [Moles/Vol] 27 mmol/L Normal 22-29 [facility] Comment on above: Performed By: #### A SATISH, ADIFF, GFR, BMP, CBC, FRANSISCO #### [place] [address] Creatinine [Mass/Vol] 0.54 mg/dL Normal 0.51-0.95 [facility] Comment on above: Performed By: #### A SATISH, ADIFF, GFR, BMP, CBC, FRANSISCO #### [place] [address] Electrolyte Balance 9.0 mEq/L Normal 4.0-15.0 [facility] Comment on above: Performed By: #### A SATSIH, ADIFF, GFR, BMP, CBC, FRANSISCO #### [place] [address] Glucose [Mass/Vol] 136 mg/dL High 70-105 [facility] Comment on above: Performed By: #### A SATISH, ADIFF, GFR, BMP, CBC, FRANSISCO #### [place] [address] Potassium [Moles/Vol] 4.0 mmol/L Normal 3.5-5.1 [facility] Comment on above: Performed By: #### A SATISH, ADIFF, GFR, BMP, CBC, FRANSISCO #### [place] [address] Sodium [Moles/Vol] 137 mmol/L Normal 136-145 [facility] Comment on above: Performed By: #### A SATISH, ADIFF, GFR, BMP, CBC, MDW #### [place] [address] Urea nitrogen [Mass/Vol] 10 mg/dL Normal 7-18 [facility] Comment on above: Performed By: #### A SATISH, ADIFF, GFR, BMP, CBC, MDW #### [place] [address] CBCon 09-22-2025 Erythrocyte distribution width (RBC) [Ratio] 13.1 % Normal 11.5-15.5 [facility] Comment on above: Performed By: #### A SATISH, ADIFF, GFR, BMP, CBC, MDW #### [place] [address] Hematocrit (Bld) [Volume fraction] 45.3 % Normal 34.0-46.0 [facility] Comment on above: Performed By: #### A SATISH, ADIFF, GFR, BMP, CBC, MDYair #### [place] [address] Hgb 15.5 G/dL Normal 12.0-16.0 [facility] Comment on above: Performed By: #### A SATISH, ADIFF, GFR, BMP, CBC, MDW #### [address] [address] MCH (RBC) [Entitic mass] 31.2 pg Normal 27.0-33.0 [facility] Comment on above: Performed By: #### A SATISH, ADIFF, GFR, BMP, CBC, MDW #### [address] [address] MCHC 34.1 G/dL Normal 32.0-36.0 [facility] Comment on above: Performed By: #### A SATISH, ADIFF, GFR, BMP, CBC, MDW #### [address] [address] MCV (RBC) [Entitic vol] 91.5 fL Normal 80.0-99.0 [facility] Comment on above: Performed By: #### A SATISH, ADIFF, GFR, BMP, CBC, FRANSISCO #### [address] [address] Platelet 229 10 3/mcL Normal 150-450 [facility] Comment on above: Performed By: #### A SATISH, ADIFF, GFR, BMP, CBCFRANSISCO #### [id number] [place], [place] [address] Platelet mean volume (Bld) [Entitic vol] 9.3 fL Normal 6.6-10.5 [facility] Comment on above: Performed By: #### A SATISH, ADIFF, GFR, BMP, CBCFRANSISCO #### [address] [place], [place] [address] RBC 4.95 10 6/mcL Normal 4.10-5.30 [facility] Comment on above: Performed By: #### A SATISH, ADIFF, GFR, BMP, CBCFRANSISCO #### [address] [address] WBC 9.6 10 3/mcL Normal 4.5-10.8 [facility] Comment on above: Performed By: #### A SATISH, ADIFF, GFR, BMP, FRANSISCO MOCTEZUMA #### [address] [address] [address] ABD/PELVIS W/ IV CONTRAST ONLYon 09-22-2025 CT ABD/PELVIS W/ IV CONTRAST ONLY ORIGINAL EXAMINATION: CT OF THE ABDOMEN AND PELVIS WITH CONTRAST 09/22/2025 5:09 pm TECHNIQUE: CT of the abdomen and pelvis was performed with the administration of intravenous contrast. Multiplanar reformatted images are provided for review. Automated exposure control, iterative reconstruction, and/or weight based adjustment of the mA/kV was utilized to reduce the radiation dose to as low as reasonably achievable. COMPARISON: Same day pelvic ultrasound. HISTORY: ORDERING SYSTEM PROVIDED HISTORY: Reason for Exam: RLQ abdominal pain FINDINGS: The heart is normal in size. No pericardial thickening or effusion. The visualized lower lungs are without acute abnormality. The aorta is nonaneurysmal with no significant atherosclerosis. No adenopathy within the abdomen or pelvis. Focal fatty infiltration along the falciform groove. Mild intrahepatic biliary ductal dilation likely from prior cholecystectomy. The spleen, pancreas, and bilateral adrenal glands are unremarkable. The kidneys enhance symmetrically. No hydronephrosis or renal calculi. Bilateral subcentimeter renal hypodensities too small to characterize but most likely represent simple cysts. The bladder is unremarkable. Left adnexal appearance relates to multiple follicles better appreciated on the same day pelvic ultrasound. No pneumoperitoneum or free fluid. There are distended and thick walled loops of small bowel throughout the abdomen with a smooth transition. Prior appendectomy. No acute osseous abnormality. Degenerative changes of the spine. Findings compatible with DISH. IMPRESSION: Findings compatible with [id number] enteritis. No pneumoperitoneum or free fluid. I have personally reviewed the images of this examination and agree with the resident's findings and interpretation. Interpreted by: Colleen Pichardo Preliminary Report By: Jamar León Electronically signed By Colleen Pichardo Dictated Date: 09/22/2025 5:28:36 PM Prelim Date: 09/22/2025 5:32:41 PM Sign Date: 09/22/2025 5:43:02 PM Ordering Provider: MARIO LORD RP Normal [facility]ORATORYOrdered By: SYSTEM SYSTEM on 09-22-2025 Basophils (Bld) [#/Vol] 0.1 103/mcL Normal 0.0 - 0.3 10^3/mcL AO Workflow SS Basophils/100 WBC (Bld) 0.6 % Normal 0.0 - 2.5 % AO Workflow SS Calcium [Mass/Vol] 9.1 mg/dL Normal 8.4 - 10. 2 mg/dL AO ADM SS Chloride [Moles/Vol] 101 mmol/L Normal 98 - 10 7 mmol/L AO ADM SS CO2 [Moles/Vol] 27 mmol/L Normal 22 - 29 mmol/L AO ADM SS Creatinine [Mass/Vol] 0.54 mg/dL Normal 0.51 - 0.95 mg/dL AO ADM SS Electrolyte Balance 9.0 mEq/L Normal 4.0 - 15 .0 mEq/L AO ADM SS Eosinophil, Absolute 0.1 103/mcL Normal 0.0 - 0 .7 10^3/mcL AO Workflow SS Eosinophils/100 WBC (Bld) 1.1 % Normal 0.0 - 6.0 % AO Workflow SS Erythrocyte distribution width (RBC) [Ratio] 13.1 % Normal 11.5 - 15.5 % AO Workflow SS GLOMERULAR FILTRATION RATE/1.73 SQ M.PREDICTED:ARVRAT:PT :SER/PLAS/BLD:QN:CREA TININE-BASED FORMULA (CKD-EPI 2020) 118 ml/min/1.73sqm Invalid Interpretation Code AO Chemistry S Comment on above: Interpretive Data: Stages of Chronic Kidney Disease (CKD) Stage Description eGFR(ml/min/1.73 sq.m.) CKD 1 Normal kidney function or >=90 normal kindney function with possible kidney damage (ex. Proteinuria) CKD 2 Kidney damage with mild loss 60-89 of kidney function CKD 3a Mild to moderate loss of kidney 45-59 function CKD 3b Moderate to severe loss of 30-44 of kindey function CKD 4 Severe loss of kidney function 15-29 CKD 5 Kidney failure <15 Note: (go live 2024) the eGFR calculation was updated to the 2020 CKD-EPI creatinine equation without a race factor to calculate the eGFR results. Glucose [Mass/Vol] 136 mg/dL High 70 - 105 mg/dL AO ADM SS Hematocrit (Bld) [Volume fraction] 45.3 % Normal 34.0 - 46.0 % AO Workflow SS Hemoglobin (Bld) [Mass/Vol] 15.5 G/dL Normal 12.0 - 16.0 G/dL AO Workflow SS Lymphocytes (Bld) [#/Vol] 3.0 103/mcL Normal 0.9 - 4.3 10^3/mcL AO Workflow SS Lymphocytes/100 WBC (Bld) 31.8 % Normal 20.0 - 40.0 % AO Workflow SS MCH (RBC) [Entitic mass] 31.2 pg Normal 27.0 - 33.0 pg AO Workflow SS MCHC 34.1 G/dL Normal 32.0 - 36.0 G/dL AO Workflow SS MCV (RBC) [Entitic vol] 91.5 fL Normal 80.0 - 99.0 fL AO Workflow SS Monocyte distribution width Auto (Bld) [Entitic vol] 17.47 1 Normal 0.00 - 20.00 AO Workflow SS Comment on above: Result Comment: For ED adult patients suspected of sepsis, MDW<=20.0 does not rule out sepsis or risk of sepsis Monocytes (Bld) [#/Vol] 0.9 103/mcL Normal 0.1 - 1.4 10^3/mcL AO Workflow SS Monocytes/100 WBC (Bld) 9.0 % Normal 2.0 - 13.0 % AO Workflow SS Neutrophils (Bld) [#/Vol] 5.5 103/mcL Normal 2.3 - 8.1 10^3/mcL AO Workflow SS Neutrophils/100 WBC (Bld) 57.5 % Normal 50.0 - 75.0 % AO Workflow SS Platelet mean volume (Bld) [Entitic vol] 9.3 fL Normal 6.6 - 10.5 fL AO Workflow SS Platelets (Bld) [#/Vol] 229 103/mcL Normal 150 - 450 10^3/mcL AO Workflow SS Potassium [Moles/Vol] 4.0 mmol/L Normal 3.5 - 5.1 mmol/L AO ADM SS RBC (Bld) [#/Vol] 4.95 106/mcL Normal 4.10 - 5.30 10^6/mcL AO Workflow SS Sodium [Moles/Vol] 137 mmol/L Normal 136 - 145 mmol/L AO ADM SS Urea nitrogen [Mass/Vol] 10 mg/dL Normal 7 - 18 mg/dL AO ADM SS Urea nitrogen/Creatinine [Mass ratio] 19 ratio Normal 7 - 27 ratio AO ADM SS WBC (Bld) [#/Vol] 9.6 103/mcL Normal 4.5 - 10.8 10^3/mcL AO Workflow SS LABORATORYOrdered By: Darrin dawkins on 09-22-2025 Color (U) Yellow (09/22/25 2:10 PM) Normal Yellow AO Auto Urine SS Glucose (U) [Mass/Vol] mg/dL Invalid Interpretation Code Negative AO Auto Urine SS Ketones Ql (U) Negative Normal Negative AO Auto Urine SS UA Appear Slightly Cloudy *ABN* (09/22/25 2:10 PM) Invalid Interpretation Code Clear AO Auto Urine SS UA Bili Negative (09/22/25 2:10 PM) Normal Negative AO Auto Urine SS UA Blood Negative (09/22/25 2:10 PM) Normal Negative AO Auto Urine SS UA Leuk Est Negative (09/22/25 2:10 PM) Normal Negative AO Auto Urine SS UA Nitrite Negative (09/22/25 2:10 PM) Normal Negative AO Auto Urine SS UA pH 7.0 (09/22/25 2:10 PM) Normal 5.0 - 8.0 AO Auto Urine SS UA Protein Negative Normal Negative AO Auto Urine SS UA RBC 0-2 /HPF Normal 0-2 AO Auto Urine SS UA Spec Grav 1.015 (09/22/25 2:10 PM) Normal 1.015-1.02 5 AO Auto Urine SS UA Specimen Type Clean Catch (09/22/25 2:10 PM) Normal AO Auto Urine SS UA Squam Epithelial 0-2 /HPF Normal 0-20 AO Au to Urine SS UA Urobilinogen 0.2 E.U./dL Normal 0.2-1.0 AO Auto Urine SS UA WBC 0-2 /HPF Normal 0-5 AO Auto Urine SS UA Yeast Trace /HPF Invalid Interpretation Code AO Auto Urine SS UAon 09-22-2025 Color (U) Yellow Normal Yellow [facility] Comment on above: Performed By: #### U AMIC, UA #### [address] [address] Glucose (U) [Mass/Vol] mg/dL Abnormal Negative [facility] Comment on above: Performed By: #### U AMIC, UA #### [address] [address] Ketones Ql (U) Negative Normal Negative [facility] Comment on above: Performed By: #### U AMIC, UA #### [address] [address] UA Appear Slightly Cloudy Abnormal Clear [facility] Comment on above: Performed By: #### U AMIC, UA #### [address] [address] UA Blood Negative Normal Negative [facility] Comment on above: Performed By: #### U AMIC, UA #### [address] [address] UA Leuk Est Negative Normal Negative [facility] Comment on above: Performed By: #### U AMIC, UA #### [address] [address] UA Nitrite Negative Normal Negative [facility] Comment on above: Performed By: #### U AMIC, UA #### [address] [address] UA pH 7.0 Normal 5.0 - 8.0 [facility] Comment on above: Performed By: #### U AMIC, UA #### [address] [address] UA Protein Negative Normal Negative [facility] Comment on above: Performed By: #### U AMIC, UA #### [place] [address] UA Spec Grav 1.015 Normal 1.015-1.[address] [place] [address] Comment on above: Performed By: #### U AMIC, UA #### [place] [address] UA Specimen Type Clean Catch Normal [facility] Comment on above: Performed By: #### U AMIC, UA #### [place] [address] UA Urobilinogen 0.2 E.U./dL Normal 0.2-1.0 [facility] Comment on above: Performed By: #### U AMIC, UA #### [place] [address] Urobilinogen (U) [Mass/Vol] Negative Normal Negative [facility] Comment on above: Performed By: #### U AMIC, UA #### [place] [address] UAMICon 09-22-2025 UA RBC 0-2 Normal 0-2 [facility] Comment on above: Performed By: #### U AMIC, UA #### [place] [address] UA Squam Epithelial 0-2 Normal 0-20 [facility] Comment on above: Performed By: #### U AMIC, UA #### [place] [address] UA WBC 0-2 Normal 0-5 [facility] Comment on above: Performed By: #### U AMIC, UA #### [facility] [address] [place], [place] [address] UA Yeast Trace Abnormal [facility] Comment on above: Performed By: #### U AMIC, UA #### [facility] [address] [place], [place] [address] US ABD RIGHT UPPER QUADRANTo n 09-22-2025 US ABD RIGHT UPPER QUADRANT * * *Final Report* * * DATE OF EXAM: Sep 22 2025 9:23AM [facility] 1032 - US ABD RIGHT UPPER QUADRANT / PROCEDURE REASON: multiple diagnoses * * * * Physician Interpretation * * * * EXAMINATION: RIGHT UPPER QUADRANT AND SPLEEN ULTRASOUND CLINICAL HISTORY: Elevated liver enzymes TECHNIQUE: Sonography of the right upper quadrant and spleen was performed. Images were obtained and stored in a permanent archive and interpreted remotely. MQ: URUQ_2 COMPARISON: CT abdomen dated 09/06/2023 RESULT: Pancreas: Normal sonographic appearance. Portions obscured: tail Liver: Echotexture: Normal, homogeneous. Echogenicity: Increased Surface contour: Smooth Lesions: None. Biliary: No intrahepatic biliary duct dilation. CBD: 0.6 cm at the hilum. Gallbladder: Prior cholecystectomy Bilateral kidneys: Normal cortical echogenicity. No hydronephrosis. Spleen: Normal in size measuring 10.9 cm in craniocaudad dimension. No sonographic evidence of focal splenic lesion. Ascites: None. IMPRESSION: Hepatic steatosis. Chef Manager: RICHARD Transcribe Date/Time: Sep 22 2025 10:10A Dictated by : ABIODUN WU MD This examination was interpreted and the report reviewed and electronically signed by: ABIODUN WU MD on Sep 22 2025 10:11AM EST [id number] Normal [facility] US ABD SPLEEN -NBon 09-22-20 US ABD SPLEEN -NB * * *Final Report* * * DATE OF EXAM: Sep 22 2025 9:23AM [facility] 1232 - US ABD SPLEEN -NB / PROCEDURE REASON: multiple diagnoses * * * * Physician Interpretation * * * * EXAMINATION: RIGHT UPPER QUADRANT AND SPLEEN ULTRASOUND CLINICAL HISTORY: Elevated liver enzymes TECHNIQUE: Sonography of the right upper quadrant and spleen was performed. Images were obtained and stored in a permanent archive and interpreted remotely. MQ: URUQ_2 COMPARISON: CT abdomen dated 09/06/2023 RESULT: Pancreas: Normal sonographic appearance. Portions obscured: tail Liver: Echotexture: Normal, homogeneous. Echogenicity: Increased Surface contour: Smooth Lesions: None. Biliary: No intrahepatic biliary duct dilation. CBD: 0.6 cm at the hilum. Gallbladder: Prior cholecystectomy Bilateral kidneys: Normal cortical echogenicity. No hydronephrosis. Spleen: Normal in size measuring 10.9 cm in craniocaudad dimension. No sonographic evidence of focal splenic lesion. Ascites: None. IMPRESSION: Hepatic steatosis. Chef Manager: PSCB Transcribe Date/Time: Sep 22 2025 10:10A Dictated by : ABIODUN WU MD This examination was interpreted and the report reviewed and electronically signed by: ABIODUN WU MD on Sep 22 2025 10:11AM EST [id number] Normal [facility] US PELVIS NON-OB W/TRANSVAGI NALon 09-22-2025 US PELVIS NON-OB W/TRANSVAGINAL ORIGINAL EXAMINATION: TRANSVAGINAL PELVIC ULTRASOUND 09/22/2025 Transabdominal and TRANSVAGINAL PELVIC ULTRASOUND TECHNIQUE: Transvaginal pelvic ultrasound was performed. Transvaginal and transabdominal pelvic ultrasound was performed. COMPARISON: None HISTORY: ORDERING SYSTEM PROVIDED HISTORY: Reason for Exam: pelvic pain FINDINGS: Measurements: Uterus: Surgically absent. Right Ovary:3.8 cm x 2.8 cm x 2.6 cm, volume 14.6 mL Left Ovary: 3.9 cm x 3.1 cm x 3.4 cm, volume 21.31 mL. Ultrasound Findings: Uterus: Uterus is surgically absent. Right Ovary: Right ovary is within normal limits, mildly hypoechoic with intact arterial and vascular flow on Doppler imaging. Left Ovary: Left ovary is within normal limits. There are multiple prominent follicles measuring up to 1.4 cm. There is normal arterial and venous Doppler flow. Free Fluid: No evidence of free fluid. IMPRESSION: 1. No acute abnormality. 2. Status post hysterectomy. Interpreted by: Colleen Pichardo Preliminary Report By: Colleen Pichardo Electronically signed By Colleen Pichardo Dictated Date: 09/22/2025 4:02:12 PM Prelim Date: 09/22/2025 4:10:05 PM Sign Date: 09/22/2025 4:10:05 PM Ordering Provider: ASHLEY BARRIOS Normal [facility] Ceruloplasmin Codil-Bailee 1 11-15-2024 Ceruloplasmin [Mass/Vol] 23 mg/dL Normal 16-45 [facility] Comment on above: Order Comment: Speci men Type: BLOOD SPECIMENOrdering Facility: [facility] Address: [address] [place] [address] Performed By: #### 2 064-4 ####[facility] [id number] [address] HFE (HEMOCHROMATOSIS)on INTERPRETATION (HEMDNA) Normal [facility] Comment on above: Order Comment: Keith mallory Type: BLOOD SPECIMENOrdering Facility: [facility] Address: [address] [place] [address] Result Comment: HFE (Hemochromatosis) Laboratory Accession Number: [id number] Result: C282Y: WT H63D: WT S65C: WT Interpretation: No variant detected: The DNA sample is negative for the C282Y, H63D and S65C variants of the HFE gene. Variants at these loci are commonly associated with hereditary hemochromatosis (HH). Approximately 13% of clinically affected individuals may have this negative result, suggesting other etiologies for hereditary hemochromatosis. Methodology: Patient DNA was evaluated for three missense variants in the HFE gene (NM_000410.3) using multiplex polymerase chain reaction (PCR) followed by melting curve analysis. The variants interrogated are c.845G>A, p.Hng547Hef; g.[id number]; [id number] (legacy name C282Y), c.187C>G, p.Guk70Lpv; g.[id number]; [id number] (legacy name H63D) and c.193A>T, p.Dij83Xbu; g.[id number]; [id number] (legacy name S65C). The reference genome used was GRCh37/hg19. Limitations: DNA studies do not provide a definitive genetic risk in all individuals. This targeted test is designed to detect three specific variants (see methodology for details) in HFE (OMIM 407686). Uncommon variants or single nucleotide polymorphisms may affect binding of probes and thus result in false negative, false positive, or indeterminate results. This test does not detect other HFE variants. Disclaimer: This test was developed and its performance characteristics determined by [facility]. It has not been cleared or approved by the FDA. [facility] is regulated under CLIA as certified to perform high-complexity testing. This test is used for clinical purposes. It should not be regarded as investigational or for research. Test performed at [facility], [address] [place] [address]. CLIA Number: [id number] Interpretation performed by Molly Ogden MD, PhD Performed By: #### H GUCCI ####[facility] [id number] [place] [address] [place] Mitochondria Ab IF Ql (S)on 09-15-2025 Mitochondria M2 Ab IA Qn (S) 1.9 Units Normal <=20.0 [facility] Comment on above: Order Comment: Speci men Type: BLOOD SPECIMENOrdering Facility: [facility] Address: [address] [place] [address] Performed By: #### 1 4252-1, 82613-9 ####[facility] [id number] [place] [address] [place] Mitochondria M2 Ab Ql (S) Negative Normal Negative [facility] Comment on above: Order Comment: Specsirena mallory Type: BLOOD SPECIMENOrdering Facility: [facility] Address: [address] [place] [address] Result Comment: Anti -mitochondrial antibody test is used as an aid in diagnosis of primary biliary cholangitis. Clinical correlation is required. Performed By: #### 1 4252-1, 02156-8 ####[facility] [id number] [place] [address] [place] Smooth muscle Ab Ql (S)on ACTIN SMOOTH MUSCLE IGG QUALITATIVE Negative Normal Negative [facility] Comment on above: Order Comment: Keith mallory Type: BLOOD SPECIMENOrdering Facility: [facility] Address: [address] [place] [address] Performed By: #### 1 4252-1, 10785-8 ####[facility] [id number] [place] [address] [place] ACTIN SMOOTH MUSCLE IGG QUANTITATIVE 9 Units Normal <20 [facility] Comment on above: Order Comment: Keith mallory Type: BLOOD SPECIMENOrdering Facility: [facility] Address: [address] [place] [address] Performed By: #### 1 4252-1, 74743-9 ####[facility] [id number] [address] [place] tTG IgG Qn (S)on 09-15-2025 TRANSGLUTAMINASE IGG ABS INTERPRETATION Positive Abnormal Negative [facility] Comment on above: Order Comment: Keith mallory Type: BLOOD SPECIMENOrdering Facility: [facility] Address: [address] [place] [address] Result Comment: The following results were obtained with [employer] QUANTA Lite R h-tTG IgG MARISELA.???R h-tTG IgG values obtained with different manufacturers' assay methods may not be used interchangeably. The magnitude of the reported IgG levels cannot be correlated to an endpoint???concentration. This test is used as an aid in diagnosis of celiac disease in IgA-deficient individuals only. Clinical correlation is required. Performed By: #### 3 2998-7 ####[facility] [id number] [place] [address] [place] tTG IgG Ser-aCncon tTG IgG Qn (S) 11 U/mL High <6 [facility] Comment on above: Order Comment: Keith mallory Type: BLOOD SPECIMENOrdering Facility: [facility] Address: [address] [place] [address] Performed By: #### 3 2998-7 ####[facility] [id number] [place] [address] [place] 25(OH)D3 [facility]Pl[facility] 2024 25-hydroxyvitamin D3 [Mass/Vol] 24.4 ng/mL Low 31.0-80.0 [facility] Comment on above: Order Comment: Speci men Type: BLOOD SPECIMENOrdering Facility: [facility] Address: [address] [place] [address] Performed By: #### 1 989-3 ####[facility] [id number] [place] [address] [place] CBC W Auto Differential pane l (Bld)on 09-05-2025 Basophils (Bld) [#/Vol] 0.07 10*3/uL Normal <0.11 [facility] Comment on above: Order Comment: Speci men Type: BLOOD SPECIMENOrdering Facility: [facility] Address: [address] [place] [address] Performed By: #### 5 7021-8 ####[facility] [id number] [place] [address] [place] Basophils/100 WBC (Bld) 0.8 % Normal [facility] Comment on above: Order Comment: Speci men Type: BLOOD SPECIMENOrdering Facility: [facility] Address: [address] [place] [address] Performed By: #### 5 7021-8 ####[facility] [id number] [place] [address] [place] Differential cell count method Nom (Bld) Auto Normal [facility] Comment on above: Order Comment: Speci men Type: BLOOD SPECIMENOrdering Facility: [facility] Address: [address] [place] [address] Performed By: #### 5 7021-8 ####[facility] [id number] [place] [address] [place] Eosinophils (Bld) [#/Vol] 0.15 10*3/uL Normal <0.46 [facility] Comment on above: Order Comment: Speci men Type: BLOOD SPECIMENOrdering Facility: [facility] Address: [address] [place] [address] Performed By: #### 5 7021-8 ####[facility] [id number] [place] [address] [place] Eosinophils/100 WBC (Bld) 1.6 % Normal [facility] Comment on above: Order Comment: Speci men Type: BLOOD SPECIMENOrdering Facility: [facility] Address: [address] [place] [address] Performed By: #### 5 7021-8 ####[facility] [id number] [place] [address] [place] Erythrocyte distribution width (RBC) [Ratio] 12.7 % Normal 11.5-15.0 [facility] Comment on above: Order Comment: Speci men Type: BLOOD SPECIMENOrdering Facility: [facility] Address: [address] [place] [address] Performed By: #### 5 7021-8 ####[facility] [id number] [place] [address] [place] Hematocrit (Bld) [Volume fraction] 46.4 % High 36.0-46.0 [facility] Comment on above: Order Comment: Speci men Type: BLOOD SPECIMENOrdering Facility: [facility] Address: [address] [place] [address] Performed By: #### 5 7021-8 ####[facility] [id number] [place] [address] [place] Hemoglobin (Bld) [Mass/Vol] 15.5 g/dL Normal 11.5-15.5 [facility] Comment on above: Order Comment: Speci men Type: BLOOD SPECIMENOrdering Facility: [facility] Address: [address] [place] [address] Performed By: #### 5 7021-8 ####[facility] [id number] [place] [address] [place] Immature granulocytes (Bld) [#/Vol] 0.03 10*3/uL Normal <0.10 [facility] Comment on above: Order Comment: Speci men Type: BLOOD SPECIMENOrdering Facility: [facility] Address: [address] [place] [address] Performed By: #### 5 7021-8 ####[facility] [id number] [place] [address] [place] Immature granulocytes/100 WBC (Bld) 0.3 % Normal [facility] Comment on above: Order Comment: Speci men Type: BLOOD SPECIMENOrdering Facility: [facility] Address: [address] [place] [address] Performed By: #### 5 7021-8 ####[facility] [id number] [place] [address] [place] Lymphocytes (Bld) [#/Vol] 3.32 10*3/uL Normal 1.00-4.00 [facility] Comment on above: Order Comment: Speci men Type: BLOOD SPECIMENOrdering Facility: [facility] Address: [address] [place] [address] Performed By: #### 5 7021-8 ####[facility] [id number] [address] [place] Lymphocytes/100 WBC (Bld) 35.6 % Normal [facility] Comment on above: Order Comment: Speci men Type: BLOOD SPECIMENOrdering Facility: [facility] Address: [address] [place] [address] Performed By: #### 5 7021-8 ####[facility] [id number] [place] [address] [place] MCH (RBC) [Entitic mass] 30.7 pg Normal 26.0-34.0 [facility] Comment on above: Order Comment: Speci men Type: BLOOD SPECIMENOrdering Facility: [facility] Address: [address] [place] [address] Performed By: #### 5 7021-8 ####[facility] [id number] [place] [address] [place] MCHC (RBC) [Mass/Vol] 33.4 g/dL Normal 30.5-36.0 [facility] Comment on above: Order Comment: Speci men Type: BLOOD SPECIMENOrdering Facility: [facility] Address: [address] [place] [address] Performed By: #### 5 7021-8 ####[facility] [id number] [place] [address] [place] MCV (RBC) [Entitic vol] 91.9 fL Normal 80.0-100.0 [facility] Comment on above: Order Comment: Speci men Type: BLOOD SPECIMENOrdering Facility: [facility] Address: [address] [place] [address] Performed By: #### 5 7021-8 ####[facility]IA [id number] [place] [address] [place] Monocytes (Bld) [#/Vol] 0.99 10*3/uL High <0.87 [facility] Comment on above: Order Comment: Speci men Type: BLOOD SPECIMENOrdering Facility: [facility] Address: [address] [place] [address] Performed By: #### 5 7021-8 ####[facility] [id number] [place] [address] [place] Monocytes/100 WBC (Bld) 10.6 % Normal [facility] Comment on above: Order Comment: Speci men Type: BLOOD SPECIMENOrdering Facility: [facility] Address: [address] [place] [address] Performed By: #### 5 7021-8 ####[facility] [id number] [place] [address] [place] Neutrophils (Bld) [#/Vol] 4.76 10*3/uL Normal 1.45-7.50 [facility] Comment on above: Order Comment: Speci men Type: BLOOD SPECIMENOrdering Facility: [facility] Address: [address] [place] [address] Performed By: #### 5 7021-8 ####[facility]CL[facility] [id number] [place] [address] [place] Neutrophils/100 WBC (Bld) 51.1 % Normal [facility] Comment on above: Order Comment: Speci men Type: BLOOD SPECIMENOrdering Facility: [facility] Address: [address] [place] [address] Performed By: #### 5 7021-8 ####[facility] [id number] [place] [address] [place] Nucleated RBC (Bld) [#/Vol] 10*3/uL Normal <0.01 [facility] Comment on above: Order Comment: Speci men Type: BLOOD SPECIMENOrdering Facility: [facility] Address: [address] [place] [address] Performed By: #### 5 7021-8 ####[facility]CL[facility] [id number] [place] [address] [place] Nucleated RBC/100 WBC (Bld) [Ratio] 0.0 /100 WBC Normal [facility] Comment on above: Order Comment: Speci men Type: BLOOD SPECIMENOrdering Facility: [facility] Address: [address] [place] [address] Performed By: #### 5 7021-8 ####[facility]CL[facility] [id number] [place] [address] [place] Platelet mean volume (Bld) [Entitic vol] 11.4 fL Normal 9.0-12.7 [facility] Comment on above: Order Comment: Speci men Type: BLOOD SPECIMENOrdering Facility: [facility] Address: [address] [place] [address] Performed By: #### 5 7021-8 ####[facility]CL[facility] [id number] [place] [address] [place] Platelets (Bld) [#/Vol] 233 10*3/uL Normal 150-400 [facility] Comment on above: Order Comment: Speci men Type: BLOOD SPECIMENOrdering Facility: [facility] Address: [address] [place] [address] Performed By: #### 5 7021-8 ####[facility] [id number] [place] [address] [place] RBC (Bld) [#/Vol] 5.05 10*6/uL Normal 3.90-5.20 [facility] Comment on above: Order Comment: Speci men Type: BLOOD SPECIMENOrdering Facility: [facility] Address: [address] [place] [address] Performed By: #### 5 7021-8 ####[facility] [id number] [place] [address] [place] WBC (Bld) [#/Vol] 9.32 10*3/uL Normal 3.70-11.00 [facility] Comment on above: Order Comment: Speci men Type: BLOOD SPECIMENOrdering Facility: [facility] Address: [address] [place] [address] Performed By: #### 5 7021-8 ####[facility] [id number] [place] [address] [place] Comprehensive metabolic 2000 panelon 09-05-2025 Albumin [Mass/Vol] 4.5 g/dL Normal 3.9-4.9 [facility] Comment on above: Order Comment: Speci men Type: BLOOD SPECIMENOrdering Facility: [facility] Address: [address] [place] [address] Performed By: #### 2 132-9, 2276-4, 79673-0 ####[facility] [id number] [place] [address] [place] ALP [Catalytic activity/Vol] 75 U/L Normal 34-123 [facility] Comment on above: Order Comment: Speci men Type: BLOOD SPECIMENOrdering Facility: [facility] Address: [address] [place] [address] Performed By: #### 2 132-9, 6-4, 36709-0 ####[facility] [id number] [place] [address] [place] ALT [Catalytic activity/Vol] 82 U/L High 7-38 [facility] Comment on above: Order Comment: Speci men Type: BLOOD SPECIMENOrdering Facility: [facility] Address: [address] [place] [address] Performed By: #### 2 132-9, 2275-4, 68978-4 ####[facility] [id number] [place] [address] [place] Anion gap [Moles/Vol] 14 mmol/L Normal 8-15 [facility] Comment on above: Order Comment: Speci men Type: BLOOD SPECIMENOrdering Facility: [facility] Address: [address] [place] [address] Performed By: #### 2 132-9, 2275-4, 29093-0 ####[facility] [id number] [place] [address] [place] AST [Catalytic activity/Vol] 72 U/L High 13-35 [facility] Comment on above: Order Comment: Speci men Type: BLOOD SPECIMENOrdering Facility: [facility] Address: [address] [place] [address] Performed By: #### 2 132-9, 2275-4, 00960-0 ####[facility] [id number] [place] [address] [place] Bilirubin [Mass/Vol] 0.5 mg/dL Normal 0.2-1.3 [facility] Comment on above: Order Comment: Speci men Type: BLOOD SPECIMENOrdering Facility: [facility] Address: [address] [place] [address] Performed By: #### 2 132-9, 6-4, 65589-2 ####[facility] [id number] [place] [address] [place] Calcium [Mass/Vol] 9.2 mg/dL Normal 8.5-10.2 [facility] Comment on above: Order Comment: Speci men Type: BLOOD SPECIMENOrdering Facility: [facility] Address: [address] [place] [address] Performed By: #### 2 132-9, 6-4, 88382-6 ####[facility] [id number] [place] [address] [place] Chloride [Moles/Vol] 100 mmol/L Normal 98-107 [facility] Comment on above: Order Comment: Speci men Type: BLOOD SPECIMENOrdering Facility: [facility] Address: [address] [place] [address] Performed By: #### 2 132-9, 6-4, 99039-4 ####[facility] [id number] [place] [address] [place] CO2 [Moles/Vol] 25 mmol/L Normal 22-30 [facility] Comment on above: Order Comment: Speci men Type: BLOOD SPECIMENOrdering Facility: [facility] Address: [address] [place] [address] Performed By: #### 2 132-9, 6-4, 74629-6 ####[facility] [id number] [place] [address] [place] Creatinine [Mass/Vol] 0.51 mg/dL Low 0.58-0.96 [facility] Comment on above: Order Comment: Speci men Type: BLOOD SPECIMENOrdering Facility: [facility] Address: [address] [place] [address] Performed By: #### 2 132-9, 6-4, 78375-2 ####[facility] [id number] [place] [id number] [place] eGFRcr SerPlBld CKD-EPI 2020 120 mL/min/1.73m??? Normal >=60 [facility] Comment on above: Order Comment: Keith mallory Type: BLOOD SPECIMENOrdering Facility: [facility] Address: [address] [place] [address] Result Comment: Aracelis mated Glomerular Filtration Rate (eGFR) is calculated using the 2020 CKD-EPI creatinine equation. This equation utilizes serum creatinine, sex, and age as parameters. The creatinine assay has traceable calibration to isotope dilution-mass spectrometry. Refer to KDIGO guidelines for clinical interpretation. In patients with unstable renal function, e.g. those with acute kidney injury, the eGFR may not accurately reflect actual GFR. Performed By: #### 2 132-9, 2276-4, 55240-8 ####[facility] [id number] [place] [address] [place] Glucose [Mass/Vol] 185 mg/dL High 74-99 [facility] Comment on above: Order Comment: Keith mallory Type: BLOOD SPECIMENOrdering Facility: [facility] Address: [address] [place] [address] Result Comment: The [place] Diabetes Association (ADA) provides guidance for cutoff values for fasting glucose and random glucose. The ADA defines fasting as no caloric intake for at least 8 hours. Fasting plasma glucose results between 100 to 125 mg/dL indicate increased risk for diabetes (prediabetes). Fasting plasma glucose results greater than or equal to 126 mg/dL meet the criteria for diagnosis of diabetes. In the absence of unequivocal hyperglycemia, results should be confirmed by repeat testing. In a patient with classic symptoms of hyperglycemia or hyperglycemic crisis, random plasma glucose results greater than or equal to 200 mg/dL meet the criteria for diagnosis of diabetes. Reference: Standards of Medical Care in Diabetes 2016, [place] Diabetes Association. Diabetes Care. 2016.39(Suppl 1). Performed By: #### 2 132-9, 2276-4, 76329-8 ####[facility] [id number] [place] [id number] [place] Potassium [Moles/Vol] 4.1 mmol/L Normal 3.7-5.1 [facility] Comment on above: Order Comment: Keith mallory Type: BLOOD SPECIMENOrdering Facility: [facility] Address: [address] [place] [address] Performed By: #### 2 132-9, 6-4, 28656-3 ####[facility] [id number] [place] [id number] [place] Protein [Mass/Vol] 7.6 g/dL Normal 6.3-8.0 [facility] Comment on above: Order Comment: Speci men Type: BLOOD SPECIMENOrdering Facility: [facility] Address: [address] [place] [address] Performed By: #### 2 132-9, 6-4, 60750-2 ####[facility] [id number] [place] [id number] [place] Sodium [Moles/Vol] 139 mmol/L Normal 136-144 [facility] Comment on above: Order Comment: Speci men Type: BLOOD SPECIMENOrdering Facility: [facility] Address: [address] [place] [address] Performed By: #### 2 132-9, 2275-4, 66174-2 ####[facility] [id number] [place] [address] [place] Urea nitrogen [Mass/Vol] 7 mg/dL Normal 7-21 [facility] Comment on above: Order Comment: Speci men Type: BLOOD SPECIMENOrdering Facility: [facility] Address: [address] [place] [address] Performed By: #### 2 132-9, 6-4, 56433-9 ####[facility] [id number] [place] [id number] [place] Ferritin SerPl-mCncon 2024 Ferritin [Mass/Vol] 227.0 ng/mL High 14.7-205.1 [facility] Comment on above: Order Comment: Speci men Type: BLOOD SPECIMENOrdering Facility: [facility] Address: [address] [place] [address] Performed By: #### 2 132-9, 6-4, 53464-8 ####[facility]CLIA [id number] [place] [address] [place] Vit B12 SerPl-mCncon 025 Cobalamin (Vitamin B12) [Mass/Vol] 437 pg/mL Normal 232-1245 [facility] Comment on above: Order Comment: Speci men Type: BLOOD SPECIMENOrdering Facility: [facility] Address: [address] [place] [address] Performed By: #### 2 132-9, 2275-4, 35136-3 ####[facility]CL[facility] [id number] [address] tTG IgA Qn (S)on 09-05-2025 TRANSGLUTAMINASE IGA ABS INTERPRETATION Negative Normal Negative [facility] Comment on above: Order Comment: Sameerai men Type: BLOOD SPECIMENOrdering Facility: [facility] Address: [address] [place] [address] Result Comment: The following results were obtained with [employer] R h-tTG IgA MARISELA.???R h-tTG IgA values obtained with different manufacturers' assay methods may not be used interchangeably. The magnitude of the reported IgA levels cannot be correlated to an endpoint???concentration. This is used as an aid in diagnosis of celiac disease. Clinical correlation is required. Performed By: #### 3 1017-7 ####[facility] [id number] [address] [place] tTG IgA Ser-aCncon 5 tTG IgA Qn (S) 2 U/mL Normal <4 [facility] Comment on above: Order Comment: Speci men Type: BLOOD SPECIMENOrdering Facility: [facility] Address: [address] [place] [address] Performed By: #### 3 1017-7 ####[facility]CLIA [id number] [place] [id number] [place] CNOVon 09-04-2025 CNOV Office Visit ([facility] ) LUKASZ DIAZ ([id number]) 1980 F Date Time Provider Department 09/04/25 2:30 PM LOUISE ESPINO During your visit today, we recorded the following information about you: Pulse Blood pressure Weight Height 76/minute 112/84 110.9 kg 1.753 m Adali Avila, LEAD IN[employer]STRU[employer]URE ARCHITECT.MAT MAN 09/04/2025 4:05 PM Signed CHIEF COMPLAINT: Patient presents with: Recheck: Chronic diarrhea, intestinal malabsorption HPI Lukasz Diaz is a 44 year old female here today for Recheck (Chronic diarrhea, intestinal malabsorption ) follow up for celiac disease. -Has been doing good up until accidentally at gluten this Monday ( sister mistook Keto for GF pancakes) and woke up in the middle of the night with vomiting and diarrhea. -Can not tolerate red meat without vomiting since diagnosis. -BM daily in am, feels like completely emptied. Denies diarrhea unless ingesting red meat or gluten -Otherwise doing well no new complaints -Feels as if skin dryness over elbows has also improved since started GF diet. Current Outpatient Medications Medication Sig adalimumab 40 mg/0.4 mL subcutaneous syringe kit (HUMIRA (CF)) Inject 40 mg subcutaneously one time a week. bacitracin 500 unit/gram pack USE 1 applicATION topically three times a day for 10 days] baclofen 5 mg tablet TAKE 1 TO 2 TABLETS BY MOUTH THREE TIMES DAILY x30 desvenlafaxine ER (PRISTIQ) 100 mg 24 hr tablet Take 1 tablet by mouth once daily. TRULICITY 4.5 mg/0.5 mL pen injector INJECT 4.5 mg subcutaneously every week] JARDIANCE 25 mg tablet Take 25 mg by mouth once daily. mirtazapine orally disintegrating (REMERON SOLTAB) 30 mg disintegrating tablet Take 30 mg by mouth daily at bedtime. ondansetron (ZOFRAN) 4 mg tablet Take 1 tablet by mouth every 12 hours as needed for nausea/vomiting. nadolol (CORGARD) 40 mg tablet Take 1 tablet by mouth two times a day. metFORMIN ER (GLUCOPHAGE XR) 500 mg 24 hr tablet Take 2 tablets by mouth two times a day. blood sugar diagnostic (BLOOD GLUCOSE TEST) test strip Test blood sugar(s) 2 times daily. Dx: Type 2 DM - Uncontrolled E11.65 Insulin: yes prazosin (MINIPRESS) 1 mg cap Take 3 caps AT BEDTIME for Anxiety No current facility-administered medications for this visit. ALLERGIES Allergen Reactions Lamictal [Lamotrigi* Other: See Comments Made her suicidal Toradol [Ketorolac] Shortness of Breath Elevates BP; dyspnea Zoloft [Sertraline * Other: See Comments suicidal. Adhesive Other: See Comments Per pt not allergic to adhesive tape - its paper tape that she's allergic to Ibuprofen Unknown Naproxen Other: See Comments Actos [Pioglitazone* Other: See Comments Sweats and chills Celexa [Citalopram] Intolerance Electrical shock feelings Eggs [Egg] GI Upset Fenofibrate GI Upset Lipitor [Atorvastat* Myalgia Plaquenil [Hydroxyc* Other: See Comments GI upset and pain Pravachol [Pravasta* GI Upset Zocor [Simvastatin] Myalgia SOCIAL HISTORY[1] PAST MEDICAL HISTORY Diagnosis Date Abnormal glandular Papanicolaou smear of cervix 10/05/2010 Controlled type 2 diabetes mellitus without complication, without long-term current use of insulin ([facility]) 05/03/2016 Current use of proton pump inhibitor 11/15/2016 Mg checked 01/2017 DUB (dysfunctional uterine bleeding) 01/18/2013 Dyslipidemia 06/05/2014 Elevated LFTs 06/10/2015 Erythrocytosis 03/27/2022 Seen Hematology 09/2018 with neg w/u Essential hypertension with goal blood pressure less than 130/85 04/26/2016 Fatty liver 06/13/2014 Gastroesophageal reflux disease without esophagitis 06/10/2015 Resolved. Generalized anxiety disorder 01/02/2016 Hypomagnesemia 04/02/2019 Large breasts 08/23/2017 Had breast reduction 02/16/2018 Mild intermittent asthma without complication ([facility]) 11/15/2016 Moderate episode of recurrent major depressive disorder ([facility]) 11/15/2016 Morbid obesity with body mass index (BMI) of 45.0 to 49.9 in adult ([facility]) 07/13/2017 Muscle spasm 08/23/2017 MVP (mitral valve prolapse) Neck pain on left side 08/23/2017 Obesity (BMI 30-39.9) 07/13/2017 PCOS (polycystic ovarian syndrome) 01/18/2013 PTSD (post-traumatic stress disorder) 01/02/2016 Pulmonary HTN ([facility]) Seeing Dr. Campbell Routine gynecological examination Sees Dr. Estrada Seronegative rheumatoid arthritis ([facility]) 07/26/2019 Seeing [facility] Suicidal behavior with attempted self-injury ([facility]) 08/19/2020 08/17/2020: overdose on muscle relaxors, Sent to inpatient unit [facility] Suicidal behavior with attempted self-injury ([facility]) 08/19/2020 08/17/2020: overdose on muscle relaxors, Sent to inpatient unit [facility] Type 2 diabetes mellitus with hyperglycemia, without long-term current use of insulin ([facility]) 05/03/2016 Vitamin D deficiency 02/21/2019 PAST SURGICAL HISTORY Procedure Laterality Date *STRESS TEST PC 02/2015 NL APPENDECTOMY 14y/o ope (more content not included)... Normal [facility] CNOVon 08-18-2025 CNOV Office Visit ([facility]) LUKASZ DIAZ ([id number]) 1980 F Date Time Provider Department 08/18/25 3:15 PM YARY ROWE WOMARK During your visit today, we recorded the following information about you: Temperature Pulse Respiration Blood pressure 98.3 degrees 91/minute 18/minute 102/62 Weight 109.3 kg Yary Rowe APRN.CNP 08/18/2025 4:20 PM Signed [facility] Subjective Lukasz Tijerina Joe is a 44 year old female. Patient presents with: Derm Problem: Sore skin under stomach folds x 5 days HPI The patient is a 44-year-old female presenting for evaluation of a sore underneath abdominal folds. - Onset 4-5 days ago after a pool therapy session. - Describes the area as cracked and sore. - Applying bacitracin without improvement. - Denies pruritus. - Cancelled pool therapy sessions due to discomfort. - Denies fever or myalgias. - No history of similar skin issues or yeast infections. - Allergies: Penicillin and Toradol. Review of Systems Skin: (+) Sore/craked rash (-) ulbilical (-) pruritus PAST MEDICAL HISTORY Diagnosis Date Abnormal glandular Papanicolaou smear of cervix 10/05/2010 Controlled type 2 diabetes mellitus without complication, without long-term current use of insulin ([facility]) 05/03/2016 Current use of proton pump inhibitor 11/15/2016 Mg checked 01/2017 DUB (dysfunctional uterine bleeding) 01/18/2013 Dyslipidemia 06/05/2014 Elevated LFTs 06/10/2015 Erythrocytosis 03/27/2022 Seen Hematology 09/2018 with neg w/u Essential hypertension with goal blood pressure less than 130/85 04/26/2016 Fatty liver 06/13/2014 Gastroesophageal reflux disease without esophagitis 06/10/2015 Resolved. Generalized anxiety disorder 01/02/2016 Hypomagnesemia 04/02/2019 Large breasts 08/23/2017 Had breast reduction 02/16/2018 Mild intermittent asthma without complication ([facility]) 11/15/2016 Moderate episode of recurrent major depressive disorder ([facility]) 11/15/2016 Morbid obesity with body mass index (BMI) of 45.0 to 49.9 in adult ([facility]) 07/13/2017 Muscle spasm 08/23/2017 MVP (mitral valve prolapse) Neck pain on left side 08/23/2017 Obesity (BMI 30-39.9) 07/13/2017 PCOS (polycystic ovarian syndrome) 01/18/2013 PTSD (post-traumatic stress disorder) 01/02/2016 Pulmonary HTN ([facility]) Seeing Dr. Campbell Routine gynecological examination Sees Dr. Estrada Seronegative rheumatoid arthritis ([facility]) 07/26/2019 Seeing [facility] Suicidal behavior with attempted self-injury ([facility]) 08/19/2020 08/17/2020: overdose on muscle relaxors, Sent to inpatient unit [facility] Suicidal behavior with attempted self-injury ([facility]) 08/19/2020 08/17/2020: overdose on muscle relaxors, Sent to inpatient unit [facility] Type 2 diabetes mellitus with hyperglycemia, without long-term current use of insulin ([facility]) 05/03/2016 Vitamin D deficiency 02/21/2019 PAST SURGICAL HISTORY Procedure Laterality Date *STRESS TEST PC 02/2015 NL APPENDECTOMY 14y/o open case CARPAL TUNNEL [id number] COLONOSCOPY 02/14/2024 normal colon COLONOSCOPY FLX DX W/COLLJ SPEC WHEN PFRMD 08/05/2015 Colonoscopy out pt [facility] EGD 02/14/2024 ESOPHAGOGASTRODUODENOSCOPY TRANSORAL DIAGNOSTIC 08/05/2015 EGD out pt [facility] HYSTERECTOMY HX LAPAROSCOPY SURG CHOLECYSTECTOMY [id number] Cholecystectomy, lap PAST SURGICAL HISTORY OF 02/2014 right meniscus repair PAST SURGICAL HISTORY OF 01/18/2017 right medial meniscal tear repair PAST SURGICAL HISTORY OF 02/2018 breast reduction surgery PAST SURGICAL HISTORY OF Right meniscus repair ALLERGIES Lamictal [Lamotrigine], Toradol [Ketorolac], Zoloft [Sertraline Hcl], Adhesive, Ibuprofen, Naproxen, Psyllium, Actos [Pioglitazone Hcl], Celexa [Citalopram], Eggs [Egg], Fenofibrate, Lipitor [Atorvastatin], Plaquenil [Hydroxychloroquine], Pravachol [Pravastatin Sodium], and Zocor [Simvastatin] MEDICATIONS ondansetron (ZOFRAN) 4 mg tablet Take 1 tablet by mouth every 12 hours as needed for nausea/vomiting. sulfaSALAzine (AZULFIDINE) 500 mg tablet Take 5 tablets by mouth once daily. Per Rheumatology dicyclomine (BENTYL) 20 mg tablet Take one tablet by mouth three times daily as needed for abdominal cramping JARDIANCE 10 mg tablet Take 1 tablet by mouth every afternoon. TRUE METRIX GLUCOSE METER as directed. promethazine (PHENERGAN) 25 mg tablet Take 1 tablet by mouth every 4 hours as needed for nausea/vomiting. nadolol (CORGARD) 40 mg tablet Take 1 tablet by mouth two times a day. dulaglutide (TRULICITY) 1.5 mg/0.5 mL pen injector Inject 1.5 mg subcutaneously one time a week. Inject once per week. Discard Pen After omeprazole (PRILOSEC) 40 mg capsule Take 1 capsule by mouth once daily. metFORMIN ER (GLUCOPHAGE XR) 500 mg 24 hr tablet Take 2 tablets by mouth two times a day. desvenlafaxine 100 mg Tb24 Take 1 Tablet By Oral Route 1 time per day mirtazapine (REMERON) 15 mg tablet Take (more content not included)... Normal [facility] AST(SGOT)on 08-08-2025 AST [Catalytic activity/Vol] 43 U/L High <=31 [facility] Comment on above: Performed By: #### L 501.4305, L501.1000, L501.4405, L501.6710, L101.9900, L501.4100, L100.0100 #### [facility] [address] [place], [place], [id number] [phone] Absolute lymphocyte counton 08-08-2025 Lymphocytes Auto (Unsp spec) [#/Vol] 2.97 10*3/uL 0.83-4.51 [facility] Absolute neutrophil counton 08-08-2025 Neutrophils (Bld) [#/Vol] 4.9 10*3/uL 2.0-7.7 [facility] Alanine Aminotransferas (SGP T)on 08-08-2025 ALT [Catalytic activity/Vol] 56 U/L High <=34 [facility] Comment on above: Performed By: #### L 501.4305, L501.1000, L501.4405, L501.6710, L101.9900, L501.4100, L100.0100 #### [facility] [address] [place], [place], [id number] Alkaline Phosphataseon 08-08 ALK PHOS 81 U/L Normal 35-104 [facility] Comment on above: Performed By: #### L 501.4305, L501.1000, L501.4405, L501.6710, L101.9900, L501.4100, L100.0100 #### [facility] [address] [place], [address] Automated lymphocyte count a s percentage of total leukocyteson 08-08-2025 Lymphocytes/100 WBC Auto (Unsp spec) 33.6 % 19-41 [facility] BUNon 08-08-2025 Urea nitrogen [Mass/Vol] 9 mg/dL Normal 4-19 [facility] Comment on above: Performed By: #### L 501.4305, L501.1000, L501.4405, L501.6710, L101.9900, L501.4100, L100.0100 #### [facility] [address] [place], [address] Basophil percentageon 08-08- 2024 Basophils/100 WBC (Bld) 0.6 % 0-1 [facility] CBC W/Diff, Automatedon 07-15 Absolute Lymph 2.97 X10 3/uL Normal 0.83-4.51 [facility] Comment on above: Performed By: #### L 501.4305, L501.1000, L501.4405, L501.6710, L101.9900, L501.4100, L100.0100 #### [facility] [address] [place], [address] Absolute Neut 4.9 X10 3/uL Normal 2.0-7.7 [facility] Comment on above: Performed By: #### L 501.4305, L501.1000, L501.4405, L501.6710, L101.9900, L501.4100, L100.0100 #### [facility] [address] [facility] [place], [address] Basophils/100 WBC (Bld) 0.6 % Normal 0-1 [facility] Comment on above: Performed By: #### L 501.4305, L501.1000, L501.4405, L501.6710, L101.9900, L501.4100, L100.0100 #### [facility] [address] [place], [address] Eosinophils/100 WBC (Bld) 1.1 % Normal 0-5 [facility] Comment on above: Performed By: #### L 501.4305, L501.1000, L501.4405, L501.6710, L101.9900, L501.4100, L100.0100 #### [facility] [address] [place], [address] Erythrocyte distribution width (RBC) [Ratio] 12.7 % Normal 11.6-14.6 [facility] Comment on above: Performed By: #### L 501.4305, L501.1000, L501.4405, L501.6710, L101.9900, L501.4100, L100.0100 #### [facility] [address] [place], [address] Hematocrit (Bld) [Volume fraction] 46.1 % Normal 37-47 [facility] Comment on above: Performed By: #### L 501.4305, L501.1000, L501.4405, L501.6710, L101.9900, L501.4100, L100.0100 #### [facility] [address] [place], [address] Hemoglobin (Bld) [Mass/Vol] 15.4 g/dL High 12.0-15.0 [facility] Comment on above: Performed By: #### L 501.4305, L501.1000, L501.4405, L501.6710, L101.9900, L501.4100, L100.0100 #### [facility] [address] [place], [address] IG% 0.200 Normal 0.0-0.9 [facility] Comment on above: Result Comment: IG% - Immature Granulocytes (promyelocytes, myelocytes and metamyelocytes) > 1% indicates that a LEFT SHIFT is Present. Performed By: #### L 501.4305, L501.1000, L501.4405, L501.6710, L101.9900, L501.4100, L100.0100 #### [facility] [address] [place], [address] Lymphocytes/100 WBC (Bld) 33.6 % Normal 19-41 [facility] Comment on above: Performed By: #### L 501.4305, L501.1000, L501.4405, L501.6710, L101.9900, L501.4100, L100.0100 #### [facility] [address] [place], [address] MCH (RBC) [Entitic mass] 30.3 pg Normal 27.0-32.0 [facility] Comment on above: Performed By: #### L 501.4305, L501.1000, L501.4405, L501.6710, L101.9900, L501.4100, L100.0100 #### [facility] [address] [place], [address] MCHC (RBC) [Mass/Vol] 33.4 g/dL Normal 32-36 [facility] Comment on above: Performed By: #### L 501.4305, L501.1000, L501.4405, L501.6710, L101.9900, L501.4100, L100.0100 #### [facility] [address] [place], [address] MCV (RBC) [Entitic vol] 90.7 fL Normal 81-99 [facility] Comment on above: Performed By: #### L 501.4305, L501.1000, L501.4405, L501.6710, L101.9900, L501.4100, L100.0100 #### [facility] [address] [place], [address] Monocytes/100 WBC (Bld) 9.3 % Normal 0-10 [facility] Comment on above: Performed By: #### L 501.4305, L501.1000, L501.4405, L501.6710, L101.9900, L501.4100, L100.0100 #### [facility] [address] [place], [address] Neutrophils/100 WBC (Bld) 55.2 % Normal 47-70 [facility] Comment on above: Performed By: #### L 501.4305, L501.1000, L501.4405, L501.6710, L101.9900, L501.4100, L100.0100 #### [facility] [address] [place], [address] Nucleated RBC (Bld) [#/Vol] 0 10*3/uL Normal 0-5 [facility] Comment on above: Performed By: #### L 501.4305, L501.1000, L501.4405, L501.6710, L101.9900, L501.4100, L100.0100 #### [facility] [address] [place], [address] Platelet mean volume (Bld) [Entitic vol] 12.3 fL High 6.2-12.0 [facility] Comment on above: Performed By: #### L 501.4305, L501.1000, L501.4405, L501.6710, L101.9900, L501.4100, L100.0100 #### [facility] [address] [place], [address] Platelets (Bld) [#/Vol] 214 10*3/uL Normal 150-450 [facility] Comment on above: Performed By: #### L 501.4305, L501.1000, L501.4405, L501.6710, L101.9900, L501.4100, L100.0100 #### [facility] [address] [place], [address] RBC (Bld) [#/Vol] 5.08 10*6/uL Normal 4.2-5.4 [facility] Comment on above: Performed By: #### L 501.4305, L501.1000, L501.4405, L501.6710, L101.9900, L501.4100, L100.0100 #### [facility] [address] [place], [address] RDW SD 41.7 fl Normal 35.1-43.9 [facility] Comment on above: Performed By: #### L 501.4305, L501.1000, L501.4405, L501.6710, L101.9900, L501.4100, L100.0100 #### [facility] [address] [place], [address] WBC (Bld) [#/Vol] 8.8 10*3/uL Normal 4.4-11.0 [facility] Comment on above: Performed By: #### L 501.4305, L501.1000, L501.4405, L501.6710, L101.9900, L501.4100, L100.0100 #### [facility] [address] [place], [address] CRPon 08-08-2025 C-REACTIVE PROT 3.67 mg/L High 0.0-3.0 [facility] Comment on above: Performed By: #### L 501.4305, L501.1000, L501.4405, L501.6710, L101.9900, L501.4100, L100.0100 #### [facility] [address] [place], [address] Eosinophil percentageon 07-15 Eosinophils/100 WBC (Bld) 1.1 % 0-5 [facility] Erythrocyte Sed Rateon 08-08 SED RATE 13 mm/hr Normal 0-30 [facility] Comment on above: Performed By: #### L 501.4305, L501.1000, L501.4405, L501.6710, L101.9900, L501.4100, L100.0100 #### [facility] [address] [place], [address] Erythrocyte distribution wid th ratioon 08-08-2025 Erythrocyte distribution width (RBC) [Ratio] 12.7 % 11.6-14.6 [facility] Erythrocyte distribution wid th standard deviationon 08-08-2025 Erythrocyte distribution width (RBC) [Ratio] 41.7 fl 35.1-43.9 [facility] Erythrocyte sedimentation ra macario 08-08-2025 ESR (Bld) [Velocity] 13 mm/h 0-30 [facility] Hematocrit Auto (Bld) [Volum e fraction]on 08-08-2025 Hematocrit (Bld) [Volume fraction] 46.1 % 37-47 [facility] Hemoglobin measurementon Hemoglobin (Bld) [Mass/Vol] 15.4 g/dL High 12.0-15.0 [facility] Immature granulocytes/100 WB C Auto (Bld)on 08-08-2025 Immature granulocytes/100 WBC (Bld) 0.200 % 0.0-0.9 [facility] Comment on above: IG% - Immature Granu locytes (promyelocytes, myelocytes and metamyelocytes) > 1% indicates that a LEFT SHIFT is Present. Laboratory - Chemistry and C hemistry - challengeon 08-08-2025 AST [Catalytic activity/Vol] 43 U/L High <32 [facility] MCV (mean corpuscular volume ) determinationon 08-08-2025 MCV (RBC) [Entitic vol] 90.7 fL 81-99 [facility] Mean corpuscular hemoglobin (MCH) determinationon 08-08-2025 MCH (RBC) [Entitic mass] 30.3 pg 27.0-32.0 [facility] Mean corpuscular hemoglobin concentration (MCHC) determinationon 08-08-2025 MCHC (RBC) [Mass/Vol] 33.4 g/dL 32-36 [facility] Mean platelet volume determi nationon 08-08-2025 Platelet mean volume (Bld) [Entitic vol] 12.3 fL High 6.2-12.0 [facility] Monocyte percentageon 2024 Monocytes/100 WBC (Bld) 9.3 % 0-10 [facility] Neutrophil percentageon 07-15 Neutrophils/100 WBC (Bld) 55.2 % 47-70 [facility] Nucleated red blood cell per centageon 08-08-2025 Nucleated RBC/100 WBC (Bld) [Ratio] 0 % 0-5 [facility] Platelet counton 08-08-2025 Platelets (Bld) [#/Vol] 214 10*3/uL 150-450 [facility] RBC Auto (Bld) [#/Vol]on RBC (Bld) [#/Vol] 5.08 10*6/uL 4.2-5.4 [facility] Serum or plasma C reactive p rotein measurement (mass/volume)on 08-08-2025 CRP [Mass/Vol] 3.67 mg/L High 0.0-3.0 [facility] Serum or plasma alanine barnes otransferase (ALT) measurementon 08-08-2025 ALT [Catalytic activity/Vol] 56 U/L High <35 [facility] Serum or plasma alkaline deangelo sphatase measurementon 08-08-2025 ALP [Catalytic activity/Vol] 81 U/L 35-104 [facility] Serum or plasma urea nitroge n measurement (mass/volume)on 08-08-2025 Urea nitrogen [Mass/Vol] 9 mg/dL 4-19 [facility] White blood cell (WBC) count on 08-08-2025 WBC (Bld) [#/Vol] 8.8 10*3/uL 4.4-11.0 [facility] Abdomen/Pelvis without Conto n 08-05-2025 Abdomen/Pelvis without Cont [facility] Imaging Services [address] [place] [id number] Abdomen/Pelvis without Cont MR#: [id number] Acct: [id number] Name: LUKASZ DIAZ Rep #: [id number] : 1980 F 44 From: Michael Melton MD PCP: Dr. Esteban Ware MD Status: REG ER Study: Abdomen/Pelvis without Cont Date of Exam: 07/15 02/04 Exam# [id number] Ordering Dr: Joey Hernández DO PROCEDURE: ABDOMEN/PELVIS WITHOUT CONT 08/05/2025 REASON FOR EXAM: RLQ PAIN, HX APPENDECTOMY, HX OVARIAN CYST TECHNIQUE: Procedure Code: CTABDPEL Modality: CT Procedure: ABDOMEN/PELVIS WITHOUT CONT Noncontrast technique limits evaluation of the abdominal and pelvic viscera. Coronal and Sagittal reconstruction series were provided. One or more dose reduction techniques were used (e.g., Automated exposure control, adjustment of the mA and/or kV according to patient size, use of iterative reconstruction technique). RADIATION DOSE SUMMARY: CTDlvol: 22.8 mGy DLP: 1270.09 mGycm COMPARISON: CT abdomen and pelvis FINDINGS: Lung bases: Clear. Liver: Unremarkable. Gallbladder: Status post cholecystectomy. Spleen: Unremarkable. Pancreas: Unremarkable. Adrenals: Unremarkable. Kidneys: No hydronephrosis or nephrolithiasis. Bladder: Decompressed. Reproductive Organs: Unremarkable. Bowel: No bowel wall obstruction. No bowel wall thickening. Appendix: Unremarkable. Lymph nodes: No lymphadenopathy. Vasculature: No aneurysm. Peritoneum / Retroperitoneum: No free air or free fluid. Bones: No acute bony abnormalities. CT/Abdomen/Pelvis without Cont IMPRESSION: No acute abdominopelvic abnormalities. Reading Location: [facility] CC: Dr. Esteban Ware MD; Dr. Joey Hernández DO Chef Manager: Signed Normal [facility] Absolute lymphocyte countOrd ered By: Joey Hernández on 08-05-2025 Lymphocytes Auto (Unsp spec) [#/Vol] 3.40 10*3/uL 0.83-4.51 [facility] Absolute neutrophil countOrd ered By: Joey Hernández on 08-05-2025 Neutrophils (Bld) [#/Vol] 5.2 10*3/uL 2.0-7.7 [facility] Anion gap in Serum or Plasma Ordered By: Joey Hernández on 08-05-2025 Anion gap [Moles/Vol] 13 mmol/L 5-15 [facility] Automated lymphocyte count a s percentage of total leukocytesOrdered By: Joey Hernández on 08-05-2025 Lymphocytes/100 WBC Auto (Unsp spec) 34.7 % 19-41 [facility] BUN/creatinine ratioOrdered By: Joey Hernández on 08-05-2025 Urea nitrogen/Creatinine [Mass ratio] 22.9 mg/mg High 10-20 [facility] Basic Metabolic Profile (BMP )on 08-05-2025 BUN/CRE 22.9 RATIO High 10-20 [facility] Comment on above: Performed By: #### L 100.0100, L500.2500 ####[facility] [address] [place], [address] Calcium [Mass/Vol] 9.0 mg/dL Normal 7.6-11.0 [facility] Comment on above: Performed By: #### L 100.0100, L500.2500 ####[facility] [address] [place], [address] Chloride [Moles/Vol] 101 mmol/L Normal 98-108 [facility] Comment on above: Performed By: #### L 100.0100, L500.2500 ####[facility] [address] [place], [address] CO2 [Moles/Vol] 21.1 mmol/L Normal 21.0-32.0 [facility] Comment on above: Performed By: #### L 100.0100, L500.2500 ####[facility] [address] [place], [address] Creatinine [Mass/Vol] 0.55 mg/dL Low 0.70-1.20 [facility] Comment on above: Performed By: #### L 100.0100, L500.2500 ####[facility] [address] [place], [address] ECRCL 175.72 ml/min Normal 50-250 [facility] Comment on above: Performed By: #### L 100.0100, L500.2500 ####[facility] [address] [place], [address] GAP 13 Normal 5-15 [facility] Comment on above: Performed By: #### L 100.0100, L500.2500 ####[facility] [address] [place], [address] GFR/1.73 sq M.predicted among non-blacks MDRD (S/P/Bld) [Vol rate/Area] 117 mL/min/{1.73_m2} Normal >60 [facility] Comment on above: Result Comment: mL/m in/1.73m2 CKD-EPI Creatinine Equation (2020) Performed By: #### L 100.0100, L500.2500 ####[facility] [address] [place], [address] Glucose [Mass/Vol] 150 mg/dL High 70-99 [facility] Comment on above: Performed By: #### L 100.0100, L500.2500 ####[facility] [address] [place], [address] Potassium [Moles/Vol] 4.1 mmol/L Normal 3.3-5.1 [facility] Comment on above: Performed By: #### L 100.0100, L500.2500 ####[facility] [address] [place], [address] Sodium [Moles/Vol] 135 mmol/L Normal 133-145 [facility] Comment on above: Performed By: #### L 100.0100, L500.2500 ####[facility] [address] [place], [address] Urea nitrogen [Mass/Vol] 13 mg/dL Normal 4-19 [facility] Comment on above: Performed By: #### L 100.0100, L500.2500 ####[facility] [address] [place], [address] Basophil percentageOrdered B y: Joey Hernández on 08-05-2025 Basophils/100 WBC (Bld) 0.7 % 0-1 [facility] Bilirubin Test strip Ql (U)O rdered By: Joey Hernández on 08-05-2025 Bilirubin Ql (U) Negative Negative [facility] CBC W/Diff, Automatedon 07-15 Absolute Lymph 3.40 X10 3/uL Normal 0.83-4.51 [facility] Comment on above: Performed By: #### L 100.0100, L500.2500 #### [facility] [address] [place], [address] Absolute Neut 5.2 X10 3/uL Normal 2.0-7.7 [facility] Comment on above: Performed By: #### L 100.0100, L500.2500 #### [facility] [address] [place], [address] Basophils/100 WBC (Bld) 0.7 % Normal 0-1 [facility] Comment on above: Performed By: #### L 100.0100, L500.2500 #### [facility] [address] [place], [address] Eosinophils/100 WBC (Bld) 1.0 % Normal 0-5 [facility] Comment on above: Performed By: #### L 100.0100, L500.2500 #### [facility] [address] [place], [address] Erythrocyte distribution width (RBC) [Ratio] 12.8 % Normal 11.6-14.6 [facility] Comment on above: Performed By: #### L 100.0100, L500.2500 #### [facility] [address] [place], [address] Hematocrit (Bld) [Volume fraction] 44.4 % Normal 37-47 [facility] Comment on above: Performed By: #### L 100.0100, L500.2500 #### [facility] [address] [place], [address] Hemoglobin (Bld) [Mass/Vol] 15.2 g/dL High 12.0-15.0 [facility] Comment on above: Performed By: #### L 100.0100, L500.2500 #### [facility] [address] [place], [address] IG% 0.100 Normal 0.0-0.9 [facility] Comment on above: Result Comment: IG% - Immature Granulocytes (promyelocytes, myelocytes and metamyelocytes) > 1% indicates that a LEFT SHIFT is Present. Performed By: #### L 100.0100, L500.2500 #### [facility] [address] [place], [address] Lymphocytes/100 WBC (Bld) 34.7 % Normal 19-41 [facility] Comment on above: Performed By: #### L 100.0100, L500.2500 #### [facility] [address] [place], [address] MCH (RBC) [Entitic mass] 30.6 pg Normal 27.0-32.0 [facility] Comment on above: Performed By: #### L 100.0100, L500.2500 #### [facility] [address] [place], [address] MCHC (RBC) [Mass/Vol] 34.2 g/dL Normal 32-36 [facility] Comment on above: Performed By: #### L 100.0100, L500.2500 #### [facility] [address] [place], [address] MCV (RBC) [Entitic vol] 89.3 fL Normal 81-99 [facility] Comment on above: Performed By: #### L 100.0100, L500.2500 #### [facility] [address] [place], [address] Monocytes/100 WBC (Bld) 10.1 % High 0-10 [facility] Comment on above: Performed By: #### L 100.0100, L500.2500 #### [facility] [address] [place], [address] Neutrophils/100 WBC (Bld) 53.4 % Normal 47-70 [facility] Comment on above: Performed By: #### L 100.0100, L500.2500 #### [facility] [address] [place], [address] Nucleated RBC (Bld) [#/Vol] 0 10*3/uL Normal 0-5 [facility] Comment on above: Performed By: #### L 100.0100, L500.2500 #### [facility] [address] [place], [address] Platelet mean volume (Bld) [Entitic vol] 11.4 fL Normal 6.2-12.0 [facility] Comment on above: Performed By: #### L 100.0100, L500.2500 #### [facility] [address] [place], [address] Platelets (Bld) [#/Vol] 214 10*3/uL Normal 150-450 [facility] Comment on above: Performed By: #### L 100.0100, L500.2500 #### [facility] [address] [place], [address] RBC (Bld) [#/Vol] 4.97 10*6/uL Normal 4.2-5.4 [facility] Comment on above: Performed By: #### L 100.0100, L500.2500 #### [facility] [address] [place], [address] RDW SD 41.6 fl Normal 35.1-43.9 [facility] Comment on above: Performed By: #### L 100.0100, L500.2500 #### [facility] [address] [place], [address] WBC (Bld) [#/Vol] 9.8 10*3/uL Normal 4.4-11.0 [facility] Comment on above: Performed By: #### L 100.0100, L500.2500 #### [facility] [address] [place], [address] Carbon dioxide, total [Moles /volume] in Central venous bloodOrdered By: Joey Hernández on 08-05-2025 CO2 [Moles/Vol] 21.1 mmol/L 21.0-32.0 [facility] Chloride assayOrdered By: Fina Hernández on 08-05-2025 Chloride [Moles/Vol] 101 mmol/L 98-108 [facility] Emergency Department Summary on 08-05-2025 Emergency Department Summary [facility] Medical Records Department [address] [place] [address] Emergency Department Summary 08/05/25 MR#: [id number] Acct: [id number] Name: LUKASZ DIAZ Rep #: [id number] : 1980 44 From: Joey Hernández DO PCP: Dr. Esteban Ware MD Status:REG ER Location: ED HPI HPI - GI History of Present Illness Chief Complaint: Abd Pain Detail of Chief Complaint: Abdominal pain Informant: patient Narrative Narrative: Patient presents to the emergency department complaint of abdominal pain that started gradually around 2 AM. Describes pain in the right lower abdomen. She has had similar pain in the past with history of ovarian cysts. She was seen by myself in the emergency department on July 22 with similar type pain. At that time she was going to follow-up with [facility] as she initially had been diagnosed with a right ovarian mass however on our investigation in the emergency department at that time it was noted that her mass had resolved and at that time she had CT scan of the abdomen pelvis as well as a pelvic ultrasound to rule out torsion. It was felt at that time she may have had a complex hemorrhagic cyst that had resolved. Patient states that her pain eventually resolved and she had been doing well since that time until last evening. She denies urinary symptoms. She does have history of kidney stones. Pain does not radiate to her back. She has had no fever. [facility] Medical History (Updated 08/05/25 @ 15:[address] Remus Ungur, DO) Ovarian mass, left Back problem Kidney stone PCOS (polycystic ovarian syndrome) Rheumatoid arthritis Bursitis of left shoulder MVP (mitral valve prolapse) Celiac disease Lupus Carpal tunnel syndrome Diabetes Pulmonary hypertension Hyperlipidemia Home Medications ???Medication ???Instructions ???Recorded ???Last Taken ???Type blood-glucose meter (Accu-Chek #1 ea 05/08/24 Unknown Rx Guide Glucose Meter) lancets (Accu-Chek Fastclix Lancet #100 ea 05/08/24 Unknown Rx Drum) ondansetron HCl 4 mg tablet 4 mg PO QDAY PRN 01/09/25 Unknown History desvenlafaxine succinate 100 mg 100 mg PO DAILY #30 tabs 01/13/25 Unknown Rx tablet,extended release 24 hr adalimumab 40 mg/0.4 mL 40 mg subcut Q2W 05/01/25 Unknown History subcutaneous syringe kit (Humira(CF)) blood sugar diagnostic (Accu-Chek #100 ea 05/14/25 Unknown Rx Nathalie Plus test strips) cyclobenzaprine 5 mg tablet 5 mg PO TID PRN muscle spasm #30 0 06/05/25 Unknown Rx tabs nadolol 40 mg tablet 40 mg PO QDAY #90 tabs 06/23/25 Un known Rx mirtazapine 30 mg tablet 30 mg PO QHS 06/26/25 Unknown Hist ory prazosin 1 mg capsule 3 mg PO QHS 06/26/25 Unknown Histo ry empagliflozin 25 mg tablet 25 mg PO DAILY #90 tabs 07/01/25 U nknown Rx bacitracin 500 unit/gram topical 1 applic topical TID 10 days #144 07/31/25 Unknown Rx packet ea dulaglutide 4.5 mg/0.5 mL 4.5 mg (0.5 mL) subcut QWEEK #2 mL 07/31/25 Unknown Rx subcutaneous pen injector hydrocodone-acetaminophen 5-325mg 1 tab PO Q4H PRN PRN Pain 2 days 08/05/25 Unknown Rx 5mg-325mg #10 TABLETS metformin 500 mg tablet,extended 1,000 mg (2 x 500 mg) PO BID #360 08/05/25 Unknown Rx release 24 hr tabs Allergy/AdvReac Type Severity Reaction Status Date / Time hydroxychloroquine (From Allergy Intermediate GI issues Verified 08/05/25 12:42 Plaquenil) adhesive tape (paper tape) Allergy Other Verified 08/05/25 12:42 ketorolac tromethamine (From Allergy Shortness Verified 08/05/25 12:42 Toradol) of breath naproxen sodium (From Aleve) Allergy Shortness Verified 08/05/25 12:42 of breath Penicillins Allergy Rash Verified 08/05/25 12:42 Family History Mother Autoimmune disease lupus Parkinson disease Hypertension Grandfather Colon cancer Father Hypertension Myocardial infarction, Onset Age: 51 Grandmother Breast cancer Sister Crohn's disease Surgical History S/P partial hysterectomy H/O lateral meniscus repair of right knee History of carpal tunnel surgery Hx of reduction mammoplasty Hx of appendectomy Hx of cholecystectomy Social History adopted: No household members: family current occupational status: unemployed pets and animals: Yes (2) pets and animals: cat(s) sexually active: No Smoking Status: Former smoker quit date: 11/13/13 pack-years: 15 Tobacco: How many years used: 20 Electronic Cigarette Use: not used alcohol intake: never substance use type: does not use diet: gluten free caffeine: Yes (1) Type: coffee frequency: does not exercise seatbelt use: always do you feel safe at home: Yes ROS ROS ED Review of Systems ROS Celestino (more content not included)... Normal [facility] Eosinophil percentageOrdered By: Joey Hernández on 08-05-2025 Eosinophils/100 WBC (Bld) 1.0 % 0-5 [facility] Erythrocyte distribution wid th ratioOrdered By: Joey Hernández on 08-05-2025 Erythrocyte distribution width (RBC) [Ratio] 12.8 % 11.6-14.6 [facility] Erythrocyte distribution wid th standard deviationOrdered By: Joey Hernández on 08-05-2025 Erythrocyte distribution width (RBC) [Ratio] 41.6 fl 35.1-43.9 [facility] Glomerular filtration rate ( GFR) estimation/1.73 sq m using serum, plasma, or whole bOrdered By: Joey Hernández on 08-05-2025 GFR/1.73 sq M.predicted among non-blacks MDRD (S/P/Bld) [Vol rate/Area] 117 mL/min/{1.73_m2} >60 [facility] Comment on above: mL/min/1.73m2 CKD-EP I Creatinine Equation (2020) Hematocrit Auto (Bld) [Volum e fraction]Ordered By: Joey Hernández on 08-05-2025 Hematocrit (Bld) [Volume fraction] 44.4 % 37-47 [facility] Hemoglobin measurementOrdere d By: Joey Hernández on 08-05-2025 Hemoglobin (Bld) [Mass/Vol] 15.2 g/dL High 12.0-15.0 [facility] Immature granulocytes/100 WB C Auto (Bld)Ordered By: Joey Hernández on 08-05-2025 Immature granulocytes/100 WBC (Bld) 0.100 % 0.0-0.9 [facility] Comment on above: IG% - Immature Granu locytes (promyelocytes, myelocytes and metamyelocytes) > 1% indicates that a LEFT SHIFT is Present. Ketones Test strip Ql (U)Ord ered By: Joey Hernández on 08-05-2025 Ketones Ql (U) Negative Negative [facility] MCV (mean corpuscular volume ) determinationOrdered By: Joey Hernández on 08-05-2025 MCV (RBC) [Entitic vol] 89.3 fL 81-99 [facility] Mean corpuscular hemoglobin (MCH) determinationOrdered By: Joey Hernández on 08-05-2025 MCH (RBC) [Entitic mass] 30.6 pg 27.0-32.0 [facility] Mean corpuscular hemoglobin concentration (MCHC) determinationOrdered By: Joey Hernández on 08-05-2025 MCHC (RBC) [Mass/Vol] 34.2 g/dL 32-36 [facility] Mean platelet volume determi nationOrdered By: Joey Hernández on 08-05-2025 Platelet mean volume (Bld) [Entitic vol] 11.4 fL 6.2-12.0 [facility] Microscopic analysis of urin e for red blood cells (RBC)Ordered By: Joey Hernández on 08-05-2025 Microscopic analysis of urine for red blood cells (RBC) 0-5 SEEN /hpf 0-5 [facility] Monocyte percentageOrdered B y: Joey Hernández on 08-05-2025 Monocytes/100 WBC (Bld) 10.1 % High 0-10 [facility] Mucus LM Ql (Urine sed)Order ed By: Joey Hernández on 08-05-2025 Mucus Ql (Urine sed) 0 SEEN /hpf [facility] Neutrophil percentageOrdered By: Joey Hernández on 08-05-2025 Neutrophils/100 WBC (Bld) 53.4 % 47-70 [facility] Nitrite Test strip Ql (U)Ord ered By: Joey Hernández on 08-05-2025 Nitrite Ql (U) Negative Negative [facility] Nucleated red blood cell per centageOrdered By: Joey Hernández on 08-05-2025 Nucleated RBC/100 WBC (Bld) [Ratio] 0 % 0-5 [facility] Platelet countOrdered By: Fina Hernández on 08-05-2025 Platelets (Bld) [#/Vol] 214 10*3/uL 150-450 [facility] Potassium measurement (mass/ volume)Ordered By: Joey Hernández on 08-05-2025 Potassium (Unsp spec) [Mass/Vol] 4.1 mmol/L 3.3-5.1 [facility] Protein Test strip Ql (U)Ord ered By: Joey Hernández on 08-05-2025 Protein Ql (U) 15 mg/dl High Negative [facility] RBC Auto (Bld) [#/Vol]Ordere d By: Joey Hernández on 08-05-2025 RBC (Bld) [#/Vol] 4.97 10*6/uL 4.2-5.4 [facility] Serum creatinine measurement (mass/volume)Ordered By: Joey Hernández on 08-05-2025 Creatinine [Mass/Vol] 0.55 mg/dL Low 0.70-1.20 [facility] Serum glucose measurement (m ass/volume)Ordered By: Joey Hernández on 08-05-2025 Glucose [Mass/Vol] 150 mg/dL High 70-99 [facility] Serum or plasma calcium lazaro urement (mass/volume)Ordered By: Joey Cormieribeth on 08-05-2025 Calcium [Mass/Vol] 9.0 mg/dL 7.6-11.0 [facility] Serum or plasma urea nitroge n measurement (mass/volume)Ordered By: Joey Cormieribeth on 08-05-2025 Urea nitrogen [Mass/Vol] 13 mg/dL 4-19 [facility] Sodium levelOrdered By: Maureenisa dejah Edgar on 08-05-2025 Sodium [Moles/Vol] 135 mmol/L 133-145 [facility] Squamous epithelial cells de tection in urine sediment by light microscopyOrdered By: Joey Cormieribeth on 08-05-2025 Epithelial cells.squamous LM Ql (Urine sed) 0-5 SEEN /hpf 5-10 [facility] Urinalysis, Completeon 08-05 YEAST 1+ /hpf Normal None Seen [facility] Comment on above: Order Comment: NITO CTOR TO SPECIFY Performed By: #### L 501.4305, L501.1000, L501.4405, L501.6710, L101.9900, L501.4100, L100.0100 #### [facility] [address] [place], [place], [id number] (934) EPI,SQUAMOUS 0-5 SEEN Normal 5-10 [facility] Comment on above: Order Comment: NITO CTOR TO SPECIFY Performed By: #### L 501.4305, L501.1000, L501.4405, L501.6710, L101.9900, L501.4100, L100.0100 #### [facility] [address] [place], [address] RBC 0-5 SEEN Normal 0-5 [facility] Comment on above: Order Comment: NITO CTOR TO SPECIFY Performed By: #### L 501.4305, L501.1000, L501.4405, L501.6710, L101.9900, L501.4100, L100.0100 #### [facility] [address] [place], [address] WBC 0-5 SEEN Normal 0-5 [facility] Comment on above: Order Comment: COLLE CTOR TO SPECIFY Performed By: #### L 501.4305, L501.1000, L501.4405, L501.6710, L101.9900, L501.4100, L100.0100 #### [facility] [address] [place], [address] BACTERIA 0 SEEN Normal None Seen [facility] Comment on above: Order Comment: COLLE CTOR TO SPECIFY Performed By: #### L 501.4305, L501.1000, L501.4405, L501.6710, L101.9900, L501.4100, L100.0100 #### [facility] [address] [place], [address] Mucus Ql (Urine sed) 0 SEEN Normal [facility] Comment on above: Order Comment: COLLE CTOR TO SPECIFY Performed By: #### L 501.4305, L501.1000, L501.4405, L501.6710, L101.9900, L501.4100, L100.0100 #### [facility] [address] [place], [address] RBC 10-25 SEEN Normal 0-5 [facility] Comment on above: Order Comment: COLOR OF URINE MAY AFFECT DIPSTICK RESULTS.CLEAN CATCH Result Comment: This specimen has been REJECTED due to Laboratory criteria: MisLabelled. ED STAFF has been notified of need of recollection. 08/05/251512 Devan Esparza Performed By: #### L 400.0001 ####[facility] [address] [place], [address] WBC 50-100 SEEN Normal 0-5 [facility] Comment on above: Order Comment: COLOR OF URINE MAY AFFECT DIPSTICK RESULTS.CLEAN CATCH Result Comment: This specimen has been REJECTED due to Laboratory criteria: MisLabelled. ED STAFF has been notified of need of recollection. 08/05/251512 Devan Esparza Performed By: #### L 400.0001 ####[facility] [address] [place], [address] BILIRUBIN URINE Negative Normal Negative [facility] Comment on above: Order Comment: COLOR OF URINE MAY AFFECT DIPSTICK RESULTS.CLEAN CATCH Result Comment: This specimen has been REJECTED due to Laboratory criteria: MisLabelled. ED STAFF has been notified of need of recollection. 08/05/251512 Devan Esparza Performed By: #### L 400.0001 ####[facility] [address] [place], [address] Clarity (U) Cloudy Normal Clear [facility] Comment on above: Order Comment: COLOR OF URINE MAY AFFECT DIPSTICK RESULTS.CLEAN CATCH Result Comment: This specimen has been REJECTED due to Laboratory criteria: MisLabelled. ED STAFF has been notified of need of recollection. 08/05/251512 Devan Esparza Performed By: #### L 400.0001 ####[facility] [address] [place], [address] Color (U) Sisi Normal Yellow [facility] Comment on above: Order Comment: COLOR OF URINE MAY AFFECT DIPSTICK RESULTS.CLEAN CATCH Result Comment: This specimen has been REJECTED due to Laboratory criteria: MisLabelled. ED STAFF has been notified of need of recollection. 08/05/251512 Devan Esparza Performed By: #### L 400.0001 ####[facility] [address] [place], [address] GLUCOSE, UR 1000 mg/dl Abnormal Normal [facility] Comment on above: Order Comment: COLOR OF URINE MAY AFFECT DIPSTICK RESULTS.CLEAN CATCH Result Comment: This specimen has been REJECTED due to Laboratory criteria: MisLabelled. ED STAFF has been notified of need of recollection. 08/05/251512 Devan Esparza Performed By: #### L 400.0001 ####[facility] [address] [place], [address] KETONE UR 15 mg/dl Abnormal Negative [facility] Comment on above: Order Comment: COLOR OF URINE MAY AFFECT DIPSTICK RESULTS.CLEAN CATCH Result Comment: This specimen has been REJECTED due to Laboratory criteria: MisLabelled. ED STAFF has been notified of need of recollection. 08/05/251512 Devan Chenr Performed By: #### L 400.0001 ####[facility] [address] [place], [address] LEUK ESTERASE 500 /ul Abnormal Negative [facility] Comment on above: Order Comment: COLOR OF URINE MAY AFFECT DIPSTICK RESULTS.CLEAN CATCH Result Comment: This specimen has been REJECTED due to Laboratory criteria: MisLabelled. ED STAFF has been notified of need of recollection. 08/05/251512 Devan Chenr Performed By: #### L 400.0001 ####[facility] [address] [place], [place], [address] Nitrite Ql (U) Negative Normal Negative [facility] Comment on above: Order Comment: COLOR OF URINE MAY AFFECT DIPSTICK RESULTS.CLEAN CATCH Result Comment: This specimen has been REJECTED due to Laboratory criteria: MisLabelled. ED STAFF has been notified of need of recollection. 08/05/251512 Devan sEparza Performed By: #### L 400.0001 ####[facility] [address] [place], [address] OCCULT BLOOD-UR 250 /ul Abnormal Negative [facility] Comment on above: Order Comment: COLOR OF URINE MAY AFFECT DIPSTICK RESULTS.CLEAN CATCH Result Comment: This specimen has been REJECTED due to Laboratory criteria: MisLabelled. ED STAFF has been notified of need of recollection. 08/05/251512 Devan Esparza Performed By: #### L 400.0001 ####[facility] [facility] [address] [place], [address] pH UR 6.0 Normal 5.0 - 8.0 [facility] Comment on above: Order Comment: COLOR OF URINE MAY AFFECT DIPSTICK RESULTS.CLEAN CATCH Result Comment: This specimen has been REJECTED due to Laboratory criteria: MisLabelled. ED STAFF has been notified of need of recollection. 08/05/251512 Devan Chenr Performed By: #### L 400.0001 ####[facility] [address] [place], [address] PROT DIPSTX 500 mg/dl Abnormal Negative [facility] Comment on above: Order Comment: COLOR OF URINE MAY AFFECT DIPSTICK RESULTS.CLEAN CATCH Result Comment: This specimen has been REJECTED due to Laboratory criteria: MisLabelled. ED STAFF has been notified of need of recollection. 08/05/251512 Devan Chenr Performed By: #### L 400.0001 ####[facility] [address] [place], [place], [id number] SP.GR. DIPSTX 1.010 Normal 1.002-1.03 0 [facility] Comment on above: Order Comment: COLOR OF URINE MAY AFFECT DIPSTICK RESULTS.CLEAN CATCH Result Comment: This specimen has been REJECTED due to Laboratory criteria: MisLabelled. ED STAFF has been notified of need of recollection. 08/05/251512 Devan Esparza Performed By: #### L 400.0001 ####[facility] [address] [place], [place], [id number] UR Preservative Preservative Added Normal [facility] Comment on above: Order Comment: COLOR OF URINE MAY AFFECT DIPSTICK RESULTS.CLEAN CATCH Result Comment: This specimen has been REJECTED due to Laboratory criteria: MisLabelled. ED STAFF has been notified of need of recollection. 08/05/251512 Devan Chenr Performed By: #### L 400.0001 ####[facility] [address] [place], [place], [address] UROBILI Normal Normal Normal [facility] Comment on above: Order Comment: COLOR OF URINE MAY AFFECT DIPSTICK RESULTS.CLEAN CATCH Result Comment: This specimen has been REJECTED due to Laboratory criteria: MisLabelled. ED STAFF has been notified of need of recollection. 08/05/251512 Devan Esparza Performed By: #### L 400.0001 ####[facility] [address] [place], [address] BACTERIA 0 SEEN Normal None Seen [facility] Comment on above: Order Comment: COLOR OF URINE MAY AFFECT DIPSTICK RESULTS.CLEAN CATCH Result Comment: This specimen has been REJECTED due to Laboratory criteria: MisLabelled. ED STAFF has been notified of need of recollection. 08/05/251512 Devan Esparza Performed By: #### L 400.0001 ####[facility] [address] [place], [address] EPI,SQUAMOUS 0 SEEN Normal 5-10 [facility] Comment on above: Order Comment: COLOR OF URINE MAY AFFECT DIPSTICK RESULTS.CLEAN CATCH Result Comment: This specimen has been REJECTED due to Laboratory criteria: MisLabelled. ED STAFF has been notified of need of recollection. 08/05/251512 Devan Esparza Performed By: #### L 400.0001 ####[facility] [address] [place], [address] Mucus Ql (Urine sed) 0 SEEN Normal [facility] Comment on above: Order Comment: COLOR OF URINE MAY AFFECT DIPSTICK RESULTS.CLEAN CATCH Result Comment: This specimen has been REJECTED due to Laboratory criteria: MisLabelled. ED STAFF has been notified of need of recollection. 08/05/251512 Devan Esparza Performed By: #### L 400.0001 ####[facility] [address] [place], [address] Urine clarityOrdered By: Rem us Ungibeth on 08-05-2025 Clarity (U) Clear Clear [facility] Urine color determinationOrd ered By: Remus Hernández on 08-05-2025 Color (U) Yellow Yellow [facility] Urine glucose detectionOrder ed By: Remus Hernández on 08-05-2025 Glucose Ql (U) 1000 mg/dl High Normal [facility] Urine leukocyte esterase det ection by dipstickOrdered By: Remus Hernández on 08-05-2025 Leukocyte esterase Test strip Ql (U) Negative Negative [facility] Urine pHOrdered By: Remus Un gur on 08-05-2025 pH (U) 6.0 [pH] 5.0 - 8.0 [facility] Urine sediment bacteria coun t by microscopy (number/high power field)Ordered By: Joey Hernández on 08-05-2025 Bacteria LM.HPF (Urine sed) [#/Area] 0 /[HPF] None Seen [facility] Urine sediment yeast count b y microscopy (number/high powered field)Ordered By: Joey Hernández on 08-05-2025 Yeast LM.HPF (Urine sed) [#/Area] 1 /[HPF] None Seen [facility] Urine specific gravity measu rementOrdered By: Joey Hernández on 08-05-2025 Specific gravity (U) [Rel density] 1.015 1.002-1.03 0 [facility] Urine urobilinogen measureme ntOrdered By: Joey Hernández on 08-05-2025 Urobilinogen Ql (U) Normal mg/dl Normal [facility] White blood cell (WBC) count Ordered By: Joey Hernández on 08-05-2025 WBC (Bld) [#/Vol] 9.8 10*3/uL 4.4-11.0 [facility] White blood cell countOrdere d By: Joey Hernández on 08-05-2025 White blood cell count 0-5 SEEN /hpf 0-5 [facility] Laboratory - Hematology and Cell countsOrdered By: Esteban Ware on 07-31-2025 HbA1c (Bld) [Mass fraction] 8.5 % High 4.2-6.3 [facility] Internal Medicine Office Vis itofior 07-29-2025 Internal Medicine Office Visit [facility] [address] [place], [place] [address] OFFICE VISIT Date of Service: 07/31/25 MR#: [id number] Acct: [id number] Name: LUKASZ DIAZ Rep #: [id number] : 1980 Provider: Dr. Esteban bansal MD Age/Sex: 44/F [place] [facility] [place]: Signed Intake Vital Signs 05/01/25 10:47 07/17/25 11:17 07/31/25 10:31 Height 5 ft 9 in 5 ft 9 in 5 ft 9 in Weight: 244 lb BMI 36.0 BP 126/80 H Blood Pressure Location Lt brachial Position Sitting Respiration 18 Pulse 84 Pulse Source Monitor Temp 96.8 F L Temp Source Temporal Pulse Oximetry (%) 98 Oxygen Delivery Method room air Intake Visit Reasons: 3 M FU Chief Complaint: 3 M FU Is patient in pain?: No Allergies hydroxychloroquine (From Plaquenil) Allergy (Intermediate, Verified 07/31/25 10:32) GI issues adhesive tape (paper tape) Allergy (Verified 07/31/25 10:32) Other ketorolac tromethamine (From Toradol) Allergy (Verified 07/31/25 10:32) Shortness of breath naproxen sodium (From Aleve) Allergy (Verified 07/31/25 10:32) Shortness of breath Penicillins Allergy (Verified 07/31/25 10:32) Rash Medications ???Medication ???Instructions ???Recorded ???Confirmed ???Type blood-glucose meter (Accu-Chek #1 ea 05/08/24 07/31/25 Rx Guide Glucose Meter) lancets (Accu-Chek Fastclix Lancet #100 ea 05/08/24 07/31/25 Rx Drum) ondansetron HCl 4 mg tablet 4 mg PO QDAY PRN 01/09/25 07/31/25 History desvenlafaxine succinate 100 mg 100 mg PO DAILY #30 tabs 01/13/25 07/31/25 Rx tablet,extended release 24 hr adalimumab 40 mg/0.4 mL 40 mg subcut Q2W 05/01/25 07/31/25 History subcutaneous syringe kit (Humira(CF)) blood sugar diagnostic (Accu-Chek #100 ea 05/14/25 07/31/25 Rx Nathalie Plus test strips) cyclobenzaprine 5 mg tablet 5 mg PO TID PRN muscle spasm #30 0 06/05/25 07/31/25 Rx tabs nadolol 40 mg tablet 40 mg PO QDAY #90 tabs 06/23/25 Rx metformin 500 mg tablet,extended 1,000 mg PO BID 06/26/25 07/31/25 History release 24 hr mirtazapine 30 mg tablet 30 mg PO QHS 06/26/25 07/31/25 His tory prazosin 1 mg capsule 3 mg PO QHS 06/26/25 07/31/25 Hist ory empagliflozin 25 mg tablet 25 mg PO DAILY #90 tabs 07/01/25 0 07/31/25 Rx bacitracin 500 unit/gram topical 1 applic topical TID 10 days #144 07/31/25 07/31/25 Rx packet ea dulaglutide 4.5 mg/0.5 mL 4.5 mg (0.5 mL) subcut QWEEK #2 mL 07/31/25 07/31/25 Rx subcutaneous pen injector Have you fallen in the past year?: Yes (x1) Nurse's Note: pt reports that she has a rash in her umbilicus area that was bleeding/raw when she got out of the pool after her therapy session pt declined to answer PHq9 and HENRY screeners citing the reason as she is seeing her counselor tomorrow and will be answering these questions with him. [facility] Medical History (Updated 07/31/25 @ 14:[address] Esteban Ware MD) Ovarian mass, left Back problem Kidney stone PCOS (polycystic ovarian syndrome) Rheumatoid arthritis Bursitis of left shoulder MVP (mitral valve prolapse) Celiac disease Lupus Carpal tunnel syndrome Diabetes Pulmonary hypertension Hyperlipidemia Surgical History S/P partial hysterectomy H/O lateral meniscus repair of right knee History of carpal tunnel surgery Hx of reduction mammoplasty Hx of appendectomy Hx of cholecystectomy Family History Mother Autoimmune disease lupus Parkinson disease Hypertension Grandfather Colon cancer Father Hypertension Myocardial infarction, Onset Age: 51 Grandmother Breast cancer Sister Crohn's disease Social History adopted: No household members: family current occupational status: unemployed pets and animals: Yes (2) pets and animals: cat(s) sexually active: No Smoking Status: Former smoker quit date: 11/13/13 pack-years: 15 Tobacco: How many years used: 20 Electronic Cigarette Use: not used alcohol intake: never substance use type: does not use diet: gluten free caffeine: Yes (1) Type: coffee frequency: does not exercise seatbelt use: always do you feel safe at home: Yes HPI HPI Chief Complaint: 3 M FU Details: LUKASZ DIAZ, is a 44 F who presents to the office today for a follow up. She is due for some routine blood work and never did her mammogram as previously ordered. She is due for her second shingrix and will get it at the pharmacy. She doesn't smoke and does need refills. She reports she is eating healthy. She reports she is active. She does check her sugars at home in the mornings. She reports it has been in the 200s for the last 2 weeks. She reports she hasn't had jardiance for about 2 m (more content not included)... Normal [facility] Abdomen/Pelvis without Conto n 07-17-2025 Abdomen/Pelvis without Cont [facility] Imaging Services [address] [place], [place] [address] Abdomen/Pelvis without Cont MR#: [id number] Acct: [id number] Name: LUKASZ DIAZ Rep #: [id number] : 1980 F 44 From: Azam dash MD PCP: Dr. Esteban Ware MD Status: REG ER Study: Abdomen/Pelvis without Cont Date of Exam: 03/07 Exam# [id number] Ordering Dr: Joey Hernández DO PROCEDURE: ABDOMEN/PELVIS WITHOUT CONT 07/17/2025 REASON FOR EXAM: ABDOMINAL PAIN 1-1/2 month history of abdominal pain. TECHNIQUE: Procedure Code: CTABDPEL Modality: CT Procedure: ABDOMEN/PELVIS WITHOUT CONT Noncontrast technique limits evaluation of the abdominal and pelvic viscera. Coronal and Sagittal reconstruction series were provided. One or more dose reduction techniques were used (e.g., Automated exposure control, adjustment of the mA and/or kV according to patient size, use of iterative reconstruction technique). RADIATION DOSE SUMMARY: CTDlvol: 22.39 mGy DLP: 1309.22 mGycm COMPARISON: None FINDINGS: Lung bases: The lung bases are clear. No coronary artery calcification seen. Liver: Borderline hepatomegaly. Gallbladder: Prior cholecystectomy. Spleen: Normal size. Pancreas: Normal size. No surrounding inflammation. Adrenals: Unremarkable. Kidneys: No urolithiasis. No hydronephrosis. Bladder: The urinary bladder is empty. Reproductive Organs: Prior hysterectomy. Adnexal regions are unremarkable. Bowel: Unremarkable Appendix: Prior appendectomy. Lymph nodes: Unremarkable. Vasculature: Mild diffuse atherosclerotic calcifications are noted. Peritoneum / Retroperitoneum: Unremarkable Bones: Degenerative changes of the spine. CT/Abdomen/Pelvis without Cont IMPRESSION: Borderline hepatomegaly. Status post cholecystectomy and appendectomy. No acute abnormality is seen. [id number] CC: Dr. Esteban Ware MD; Dr. Joey Hernández DO Chef Manager: Signed Normal [facility] Absolute lymphocyte countOrd ered By: Joey Hernández on 07-17-2025 Lymphocytes Auto (Unsp spec) [#/Vol] 2.62 10*3/uL 0.83-4.51 [facility] Absolute neutrophil countOrd ered By: [facility] Hern[facility] on 07-17-2025 Neutrophils (Bld) [#/Vol] 4.6 10*3/uL 2.0-7.7 [facility] Anion gap in Serum or Plasma Ordered By: Joey Hernández on 07-17-2025 Anion gap [Moles/Vol] 13 mmol/L 5-15 [facility] Automated lymphocyte count a s percentage of total leukocytesOrdered By: Joey Hernández on 07-17-2025 Lymphocytes/100 WBC Auto (Unsp spec) 31.5 % 19-41 [facility] BUN/creatinine ratioOrdered By: [place] Edgar on 07-17-2025 Urea nitrogen/Creatinine [Mass ratio] 21.0 mg/mg High 09-01 [facility] Basic Metabolic Profile (BMP )on 07-17-2025 BUN/CRE 21.0 RATIO High 09-01 [facility] Comment on above: Performed By: #### L 500.2500, L100.0100 ####[facility] [address] [place], [address] Calcium [Mass/Vol] 9.6 mg/dL Normal 7.6-11.0 [facility] Comment on above: Performed By: #### L 500.2500, L100.0100 ####[facility] [address] [place], [address] Chloride [Moles/Vol] 96 mmol/L Low 98-108 [facility] Comment on above: Performed By: #### L 500.2500, L100.0100 ####[facility] [address] [place], [address] CO2 [Moles/Vol] 27.0 mmol/L Normal 21.0-32.0 [facility] Comment on above: Performed By: #### L 500.2500, L100.0100 ####[facility] [address] [place], [address] Creatinine [Mass/Vol] 0.56 mg/dL Low 0.70-1.20 [facility] Comment on above: Performed By: #### L 500.2500, L100.0100 ####[facility] [address] [place], [address] ECRCL 172.77 ml/min Normal 50-250 [facility] Comment on above: Performed By: #### L 500.2500, L100.0100 ####[facility] [address] [place], [address] GAP 13 Normal 5-15 [facility] Comment on above: Performed By: #### L 500.2500, L100.0100 ####[facility] [address] [place], [address] GFR/1.73 sq M.predicted among non-blacks MDRD (S/P/Bld) [Vol rate/Area] 117 mL/min/{1.73_m2} Normal >60 [facility] Comment on above: Result Comment: mL/m in/1.73m2 CKD-EPI Creatinine Equation (2020) Performed By: #### L 500.2500, L100.0100 ####[facility] [address] [place], [address] Glucose [Mass/Vol] 275 mg/dL High 70-99 [facility] Comment on above: Performed By: #### L 500.2500, L100.0100 ####[facility] [address] [place], [address] Potassium [Moles/Vol] 4.5 mmol/L Normal 3.3-5.1 [facility] Comment on above: Performed By: #### L 500.2500, L100.0100 ####[facility] [address] [place], [address] Sodium [Moles/Vol] 136 mmol/L Normal 133-145 [facility] Comment on above: Performed By: #### L 500.2500, L100.0100 ####[facility] [address] [place], [address] Urea nitrogen [Mass/Vol] 12 mg/dL Normal 4-19 [facility] Comment on above: Performed By: #### L 500.2500, L100.0100 ####[facility] [address] [place], [address] Basophil percentageOrdered B y: Remus Edgar on 07-17-2025 Basophils/100 WBC (Bld) 0.7 % 0-1 [facility] Bilirubin Test strip Ql (U)O rdered By: Remus Ungur on 07-17-2025 Bilirubin Ql (U) Negative Negative [facility] CBC W/Diff, Automatedon Absolute Lymph 2.62 X10 3/uL Normal 0.83-4.51 [facility] Comment on above: Performed By: #### L 500.2500, L100.0100 ####[facility] [address] [place], [address] Absolute Neut 4.6 X10 3/uL Normal 2.0-7.7 [facility] Comment on above: Performed By: #### L 500.2500, L100.0100 ####[facility] [address] [place], [address] Basophils/100 WBC (Bld) 0.7 % Normal 0-1 [facility] Comment on above: Performed By: #### L 500.2500, L100.0100 ####[facility] [address] [place], [address] Eosinophils/100 WBC (Bld) 1.3 % Normal 0-5 [facility] Comment on above: Performed By: #### L 500.2500, L100.0100 ####[facility] [address] [place], [address] Erythrocyte distribution width (RBC) [Ratio] 12.3 % Normal 11.6-14.6 [facility] Comment on above: Performed By: #### L 500.2500, L100.0100 ####[facility] [address] [place], [address] Hematocrit (Bld) [Volume fraction] 48.0 % High 37-47 [facility] Comment on above: Performed By: #### L 500.2500, L100.0100 ####[facility] [address] [place], [address] Hemoglobin (Bld) [Mass/Vol] 16.4 g/dL High 12.0-15.0 [facility] Comment on above: Performed By: #### L 500.2500, L100.0100 ####[facility] [address] [place], [address] IG% 0.100 Normal 0.0-0.9 [facility] Comment on above: Result Comment: IG% - Immature Granulocytes (promyelocytes, myelocytes and metamyelocytes) > 1% indicates that a LEFT SHIFT is Present. Performed By: #### L 500.2500, L100.0100 ####[facility] [address] [place], [address] Lymphocytes/100 WBC (Bld) 31.5 % Normal 19-41 [facility] Comment on above: Performed By: #### L 500.2500, L100.0100 ####[facility] [address] [place], [address] MCH (RBC) [Entitic mass] 30.6 pg Normal 27.0-32.0 [facility] Comment on above: Performed By: #### L 500.2500, L100.0100 ####[facility] [address] [place], [address] MCHC (RBC) [Mass/Vol] 34.2 g/dL Normal 32-36 [facility] Comment on above: Performed By: #### L 500.2500, L100.0100 ####[facility] [address] [place], [address] MCV (RBC) [Entitic vol] 89.6 fL Normal 81-99 [facility] Comment on above: Performed By: #### L 500.2500, L100.0100 ####[facility] [address] [place], [address] Monocytes/100 WBC (Bld) 11.1 % High 0-10 [facility] Comment on above: Performed By: #### L 500.2500, L100.0100 ####[facility] [address] [place], [address] Neutrophils/100 WBC (Bld) 55.3 % Normal 47-70 [facility] Comment on above: Performed By: #### L 500.2500, L100.0100 ####[facility] [address] [place], [address] Nucleated RBC (Bld) [#/Vol] 0 10*3/uL Normal 0-5 [facility] Comment on above: Performed By: #### L 500.2500, L100.0100 ####[facility] [address] [place], [address] Platelet mean volume (Bld) [Entitic vol] 11.6 fL Normal 6.2-12.0 [facility] Comment on above: Performed By: #### L 500.2500, L100.0100 ####[facility] [address] [place], [address] Platelets (Bld) [#/Vol] 255 10*3/uL Normal 150-450 [facility] Comment on above: Performed By: #### L 500.2500, L100.0100 ####[facility] [address] [place], [address] RBC (Bld) [#/Vol] 5.36 10*6/uL Normal 4.2-5.4 [facility] Comment on above: Performed By: #### L 500.2500, L100.0100 ####[facility] [address] [place], [address] RDW SD 40.0 fl Normal 35.1-43.9 [facility] Comment on above: Performed By: #### L 500.2500, L100.0100 ####[facility] [address] [place], [address] WBC (Bld) [#/Vol] 8.3 10*3/uL Normal 4.4-11.0 [facility] Comment on above: Performed By: #### L 500.2500, L100.0100 ####[facility] [address] [place], [address] Carbon dioxide, total [Moles /volume] in Central venous bloodOrdered By: Joey Hernández on 09-04-2025 CO2 [Moles/Vol] 27.0 mmol/L 21.0-32.0 [facility] Chloride assayOrdered By: Fina Hernández on 07-17-2025 Chloride [Moles/Vol] 96 mmol/L Low 98-108 [facility] Emergency Department Summary on 07-17-2025 Emergency Department Summary [facility] Medical Records Department [address] [place] [address] Emergency Department Summary 07/17/25 MR#: [id number] Acct: [id number] Name: LUKASZ DIAZ Rep #: [id number] : 1980 44 From: Joey Hernández DO PCP: Dr. Esteban Ware MD Status:DEP ER Location: ED HPI HPI - GI History of Present Illness Chief Complaint: Abd Pain Detail of Chief Complaint: Abdominal pain Informant: patient Narrative Narrative: Patient presents to the emergency department with complaint of abdominal pain that started about 24 hours ago. Patient states that she has history of a left ovarian mass and is scheduled to follow-up with [facility] in a few weeks. She had some mild nausea. Describes lower abdomen pain. Denies vomiting. Denies fever. Denies urinary symptoms. Patient has had prior hysterectomy as well as prior appendectomy and prior cholecystectomy. [facility] Medical History (Updated 07/17/25 @ 12:[address] Joey Hernández DO) Back problem Kidney stone PCOS (polycystic ovarian syndrome) Rheumatoid arthritis Bursitis of left shoulder MVP (mitral valve prolapse) Celiac disease Lupus Carpal tunnel syndrome Diabetes Pulmonary hypertension Hyperlipidemia Home Medications ???Medication ???Instructions ???Recorded ???Last Taken ???Type blood-glucose meter (Accu-Chek #1 ea 05/08/24 Unknown Rx Guide Glucose Meter) lancets (Accu-Chek Fastclix Lancet #100 ea 05/08/24 Unknown Rx Drum) ondansetron HCl 4 mg tablet 4 mg PO QDAY PRN 01/09/25 Unknown History desvenlafaxine succinate 100 mg 100 mg PO DAILY #30 tabs 01/13/25 Unknown Rx tablet,extended release 24 hr adalimumab 40 mg/0.4 mL 40 mg subcut Q2W 05/01/25 Unknown History subcutaneous syringe kit (Humira(CF)) blood sugar diagnostic (Accu-Chek #100 ea 05/14/25 Unknown Rx Nathalie Plus test strips) cyclobenzaprine 5 mg tablet 5 mg PO TID PRN muscle spasm #30 0 06/05/25 Unknown Rx tabs nadolol 40 mg tablet 40 mg PO QDAY #90 tabs 06/23/25 Un known Rx gabapentin 600 mg tablet 300 mg PO QHS 06/26/25 Unknown His tory metformin 500 mg tablet,extended 1,000 mg PO BID 06/26/25 Unknown H istory release 24 hr mirtazapine 30 mg tablet 30 mg PO QHS 06/26/25 Unknown Hist ory prazosin 1 mg capsule 3 mg PO QHS 06/26/25 Unknown Histo ry dulaglutide 3 mg/0.5 mL 3 mg (0.5 mL) subcut QWEEK #2 mL 0 07/01/25 Unknown Rx subcutaneous pen injector empagliflozin 25 mg tablet 25 mg PO DAILY #90 tabs 07/01/25 U nknown Rx tramadol 50 mg tablet 50 mg PO Q8H PRN pain (scale score 07/11/25 Unknown Rx 7-10) #21 tabs hydrocodone-acetaminophen 5-325mg 1 tab PO Q4H PRN PRN Pain 2 days 07/17/25 Unknown Rx 5mg-325mg #10 TABLETS Allergy/AdvReac Type Severity Reaction Status Date / Time hydroxychloroquine (From Allergy Intermediate GI issues Verified 07/17/25 11:17 Plaquenil) adhesive tape (paper tape) Allergy Other Verified 07/17/25 11:17 ketorolac tromethamine (From Allergy Shortness Verified 07/17/25 11:17 Toradol) of breath naproxen sodium (From Aleve) Allergy Shortness Verified 07/17/25 11:17 of breath Penicillins Allergy Rash Verified 07/17/25 11:17 Family History Mother Autoimmune disease lupus Parkinson disease Hypertension Grandfather Colon cancer Father Hypertension Myocardial infarction, Onset Age: 51 Grandmother Breast cancer Sister Crohn's disease Surgical History (Updated 06/26/25 @ 14:49 by Lainey Ulloa MA) S/P partial hysterectomy H/O lateral meniscus repair of right knee History of carpal tunnel surgery Hx of reduction mammoplasty Hx of appendectomy Hx of cholecystectomy Social History adopted: No household members: family current occupational status: unemployed pets and animals: Yes (2) pets and animals: cat(s) sexually active: No Smoking Status: Former smoker quit date: 11/13/13 pack-years: 15 Tobacco: How many years used: 20 Electronic Cigarette Use: not used alcohol intake: never substance use type: does not use diet: gluten free caffeine: Yes (1) Type: coffee frequency: does not exercise seatbelt use: always do you feel safe at home: Yes ROS ROS ED Review of Systems ROS Unobtainable: other Constitutional Constitutional ED: Reports lethargy; Denies chills, fever(s), sweats or weight loss Eyes Eyes: Denies blurry vision, change in vision or diplopia ENT ENT ED: Denies rhinorrhea or sore throat Cardiovascular Cardiovascular: Denies chest pain, orthopnea or racing heartbeat Respiratory/Chest Respiratory/Chest: Denies cough, dyspnea, dyspnea on exertion, orthopnea or sputum Gastrointestinal Gastrointestinal: Reports abdominal pain and mariana (more content not included)... Normal [facility] Eosinophil percentageOrdered By: Joey Hernández on 07-17-2025 Eosinophils/100 WBC (Bld) 1.3 % 0-5 [facility] Erythrocyte distribution wid th ratioOrdered By: Joey Hernández on 07-17-2025 Erythrocyte distribution width (RBC) [Ratio] 12.3 % 11.6-14.6 [facility] Erythrocyte distribution wid th standard deviationOrdered By: Joey Hernández on 07-17-2025 Erythrocyte distribution width (RBC) [Ratio] 40.0 fl 35.1-43.9 [facility] Glomerular filtration rate ( GFR) estimation/1.73 sq m using serum, plasma, or whole bOrdered By: Joey Hernández on 07-17-2025 GFR/1.73 sq M.predicted among non-blacks MDRD (S/P/Bld) [Vol rate/Area] 117 mL/min/{1.73_m2} >60 [facility] Comment on above: mL/min/1.73m2 CKD-EP I Creatinine Equation (2020) Hematocrit Auto (Bld) [Volum e fraction]Ordered By: Joey Hernández on 07-17-2025 Hematocrit (Bld) [Volume fraction] 48.0 % High 37-47 [facility] Hemoglobin measurementOrdere d By: Joey Hernández on 07-17-2025 Hemoglobin (Bld) [Mass/Vol] 16.4 g/dL High 12.0-15.0 [facility] Immature granulocytes/100 WB C Auto (Bld)Ordered By: Joey Hernández on 07-17-2025 Immature granulocytes/100 WBC (Bld) 0.100 % 0.0-0.9 [facility] Comment on above: IG% - Immature Granu locytes (promyelocytes, myelocytes and metamyelocytes) > 1% indicates that a LEFT SHIFT is Present. Ketones Test strip Ql (U)Ord ered By: Joey Hernández on 07-17-2025 Ketones Ql (U) 5 mg/dl High Negative [facility] Lactic Acidon 07-17-2025 Lactate [Moles/Vol] 2.8 mmol/L Invalid Interpretation Code 0.0-2.0 [facility] Comment on above: Order Comment: Y Result Comment: Crit ical Result(s) Called at 1301: by: MIR RODRIGUEZ TO [facility]. ??Results read back by same. Performed By: #### L 501.4305, L501.1000, L501.4405, L501.6710, L101.9900, L501.4100, L100.0100 #### [facility] [address] [place] [address]. [place], [address] Lactic acid measurementOrder ed By: Joey Hernández on 07-17-2025 Lactate [Moles/Vol] 2.8 mmol/L Critically high 0.0-2.0 [facility] Comment on above: Critical Result(s) C alled at 1301: by: MIR RODRIGUEZ TO [facility]. Results read back by same. MCV (mean corpuscular volume ) determinationOrdered By: Joey Hernández on 07-17-2025 MCV (RBC) [Entitic vol] 89.6 fL 81-99 [facility] Mean corpuscular hemoglobin (MCH) determinationOrdered By: Joey Hernández on 07-17-2025 MCH (RBC) [Entitic mass] 30.6 pg 27.0-32.0 [facility] Mean corpuscular hemoglobin concentration (MCHC) determinationOrdered By: Joey Hernández on 07-17-2025 MCHC (RBC) [Mass/Vol] 34.2 g/dL 32-36 [facility] Mean platelet volume determi nationOrdered By: Joey Hernández on 07-17-2025 Platelet mean volume (Bld) [Entitic vol] 11.6 fL 6.2-12.0 [facility] Microscopic analysis of urin e for red blood cells (RBC)Ordered By: Joey Hernández on 07-17-2025 Microscopic analysis of urine for red blood cells (RBC) 0-5 SEEN /hpf 0-5 [facility] Monocyte percentageOrdered B y: Joey Hernández on 07-17-2025 Monocytes/100 WBC (Bld) 11.1 % High 0-10 [facility] Mucus LM Ql (Urine sed)Order ed By: Joey Hernández on 07-17-2025 Mucus Ql (Urine sed) 0 SEEN /hpf [facility] Neutrophil percentageOrdered By: Joey Hernández on 07-17-2025 Neutrophils/100 WBC (Bld) 55.3 % 47-70 [facility] Nitrite Test strip Ql (U)Ord ered By: Joey Hernández on 07-17-2025 Nitrite Ql (U) Negative Negative [facility] Nucleated red blood cell per centageOrdered By: Joey Hernández on 07-17-2025 Nucleated RBC/100 WBC (Bld) [Ratio] 0 % 0-5 [facility] Platelet countOrdered By: Fina Hernández on 07-17-2025 Platelets (Bld) [#/Vol] 255 10*3/uL 150-450 [facility] Potassium measurement (mass/ volume)Ordered By: Joey Hernández on 07-17-2025 Potassium (Unsp spec) [Mass/Vol] 4.5 mmol/L 3.3-5.1 [facility] Protein Test strip Ql (U)Ord ered By: Joey Hernández on 07-17-2025 Protein Ql (U) 30 mg/dl High Negative [facility] RBC Auto (Bld) [#/Vol]Ordere d By: Joey Hernández on 07-17-2025 RBC (Bld) [#/Vol] 5.36 10*6/uL 4.2-5.4 [facility] Serum creatinine measurement (mass/volume)Ordered By: Joey Hernández on 07-17-2025 Creatinine [Mass/Vol] 0.56 mg/dL Low 0.70-1.20 [facility] Serum glucose measurement (m ass/volume)Ordered By: Joey Hernández on 07-17-2025 Glucose [Mass/Vol] 275 mg/dL High 70-99 [facility] Serum or plasma calcium lazaro urement (mass/volume)Ordered By: Joey Hernández on 07-17-2025 Calcium [Mass/Vol] 9.6 mg/dL 7.6-11.0 [facility] Serum or plasma urea nitroge n measurement (mass/volume)Ordered By: Joey Hernández on 07-17-2025 Urea nitrogen [Mass/Vol] 12 mg/dL 4-19 [facility] Sodium levelOrdered By: Bradley Hernández on 07-17-2025 Sodium [Moles/Vol] 136 mmol/L 133-145 [facility] Squamous epithelial cells de tection in urine sediment by light microscopyOrdered By: Joey Hernández on 07-17-2025 Epithelial cells.squamous LM Ql (Urine sed) 0-5 SEEN /hpf 5-10 [facility] Transvaginal Non-on 07-17-2025 Transvaginal Non- [facility] Imaging Services [address] [place] [address] Transvaginal Non- MR#: [id number] Acct: [id number] Name: LUKASZ DIAZ Rep #: [id number] : 1980 F 44 From: Duy Robert MD PCP: Dr. Esteban Ware MD Status: [facility] Study: Transvaginal Non- Date of Exam: Exam# [id number] Ordering Dr: Joey Hernández DO PROCEDURE: TRANSVAGINAL NON- 07/17/2025 REASON FOR EXAM: ABDOMINAL PAIN, LEFT OVARIAN MASS TECHNIQUE: Procedure Code: USTVAG Modality: US Procedure: TRANSVAGINAL NON- COMPARISON: July 17, 2025, July 04, 2025 FINDINGS: Measurements: Right Ovary: 4.6 x 2.8 x 3.1 cm. Left Ovary: 4.3 x 2.4 x 3.5 cm. Uterus: Hysterectomy Endometrium: Not applicable Right ovary: Unremarkable. Color and spectral Doppler was not performed on the right. Left ovary: Complex left ovarian mass no longer seen. Color and spectral Doppler is present. Other: No free fluid US/Transvaginal Non- IMPRESSION: 1. Hysterectomy 2. Complex left ovarian mass is no longer seen. This was likely a hemorrhagic cyst that has resolved. Reading Location: [id number] CC: Dr. Esteban Ware MD; Dr. Joey Hernández DO Chef Manager: Signed Normal [facility] Urinalysis, Completeon 07-17 EPI,SQUAMOUS 0-5 SEEN Normal 5-10 [facility] Comment on above: Order Comment: CLEAN CATCH Performed By: #### L 400.0001 ####[facility] [address] [place], [address] RBC 0-5 SEEN Normal 0-5 [facility] Comment on above: Order Comment: CLEAN CATCH Performed By: #### L 400.0001 ####[facility] [address] [place], [address] WBC 0-5 SEEN Normal 0-5 [facility] Comment on above: Order Comment: CLEAN CATCH Performed By: #### L 400.0001 ####[facility] [address] [place], [address] BACTERIA 0 SEEN Normal None Seen [facility] Comment on above: Order Comment: CLEAN CATCH Performed By: #### L 400.0001 ####[facility] [address] [place], [address] Mucus Ql (Urine sed) 0 SEEN Normal [facility] Comment on above: Order Comment: CLEAN CATCH Performed By: #### L 400.0001 ####[facility] [address] [place], [address] Urine clarityOrdered By: Maureen Hernández on 07-17-2025 Clarity (U) Clear Clear [facility] Urine color determinationOrd ered By: Joey Hernández on 07-17-2025 Color (U) Yellow Yellow [facility] Urine glucose detectionOrder ed By: Joey Hernández on 07-17-2025 Glucose Ql (U) 1000 mg/dl High Normal [facility] Urine leukocyte esterase det ection by dipstickOrdered By: Joey Hernández on 07-17-2025 Leukocyte esterase Test strip Ql (U) 25 /ul High Negative [facility] Urine pHOrdered By: Joey Haile gur on 07-17-2025 pH (U) 6.0 [pH] 5.0 - 8.0 [facility] Urine sediment bacteria coun t by microscopy (number/high power field)Ordered By: Joey Hernández on 07-17-2025 Bacteria LM.HPF (Urine sed) [#/Area] 0 /[HPF] None Seen [facility] Urine specific gravity measu rementOrdered By: Joey Hernández on 07-17-2025 Specific gravity (U) [Rel density] 1.020 1.002-1.03 0 [facility] Urine urobilinogen measureme ntOrdered By: Joey Hernández on 07-17-2025 Urobilinogen Ql (U) Normal mg/dl Normal [facility] White blood cell (WBC) count Ordered By: Joey Hernández on 07-17-2025 WBC (Bld) [#/Vol] 8.3 10*3/uL 4.4-11.0 [facility] White blood cell countOrdere d By: Joey Hernández on 07-17-2025 White blood cell count 0-5 SEEN /hpf 0-5 [facility] Transvaginal Non-on 07-04-2025 Transvaginal Non- [facility] Imaging Services [address] [place], [place] [id number] Transvaginal Non- MR#: [id number] Acct: [id number] Name: LUKASZ DIAZ Rep #: [id number] : 1980 F 44 From: Azam dash MD PCP: Dr. Esteban Ware MD Status: REG CLI Study: Transvaginal Non- Date of Exam: Exam# [id number] Ordering Dr: Ghislaine Rodriguez PROCEDURE: TRANSVAGINAL NON- 07/04/2025 REASON FOR EXAM: RLQ PAIN Status post hysterectomy. TECHNIQUE: TRANSVAGINAL NON- COMPARISON: None FINDINGS: Measurements: Uterus: Status post hysterectomy. Right Ovary: 3.6 cm x 2.4 cm x 2.6 cm with a volume of 11.73 mL. Left Ovary: 6.2 cm x 6.4 cm x 5.3 cm with a volume of 110.74 mL. Right ovary: Normal size and echotexture. Left ovary: There is a 5.4 cm x 5.4 cm x 3.9 cm complex cystic mass in the left ovary. This may represent an endometrioma. Clinical correlation recommended. Other: No free fluid. US/Transvaginal Non- IMPRESSION: 5.4 cm x 5.4 cm x 3.9 cm complex mass in the left ovary as discussed. Clinical correlation recommended. Status post hysterectomy. Reading Location: [id number] CC: ТАТЬЯНА Rodriguez; Dr. Esteban Ware MD Chef Manager: Signed Normal [facility] Internal Medicine Office Vis donal 06-26-2025 Internal Medicine Office Visit [facility] [place] [address] [place] [address] OFFICE VISIT Date of Service: 06/26/25 MR#: [id number] Acct: [id number] Name: LUKASZ DIAZ Rep #: [id number] : 1980 Provider: ТАТЬЯНА de la cruz Age/Sex: 44/F [place] [facility] [place]: Signed Intake Vital Signs 06/12/25 15:38 06/26/25 10:50 06/26/25 14:53 Height 5 ft 9 in 5 ft 9 in 5 ft 9 in Weight: 240 lb 6 oz 243 lb BMI 35.4 35.9 BP 130/78 H 114/76 Blood Pressure Location Lt brachial Lt brachial Position Sitting Sitting Respiration 16 14 Pulse 76 74 Pulse Source Monitor Monitor Temp 96.6 F L 97.2 F L Temp Source Temporal Temporal Pulse Oximetry (%) 99 98 Oxygen Delivery Method room air room air Intake Visit Reasons: Fell 3 weeks ago... 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 Is patient in pain?: No Allergies hydroxychloroquine (From Plaquenil) Allergy (Intermediate, Verified 06/26/25 14:36) GI issues adhesive tape (paper tape) Allergy (Verified 06/26/25 14:36) Other ketorolac tromethamine (From Toradol) Allergy (Verified 06/26/25 14:36) Shortness of breath naproxen sodium (From Aleve) Allergy (Verified 06/26/25 14:36) Shortness of breath Penicillins Allergy (Verified 06/26/25 14:36) Rash Medications ???Medication ???Instructions ???Recorded ???Confirmed ???Type blood-glucose meter (Accu-Chek #1 ea 05/08/24 06/26/25 Rx Guide Glucose Meter) lancets (Accu-Chek Fastclix Lancet #100 ea 05/08/24 06/26/25 Rx Drum) empagliflozin 25 mg tablet 25 mg PO DAILY #90 tabs 01/09/25 0 06/26/25 Rx ondansetron HCl 4 mg tablet 4 mg PO QDAY PRN 01/09/25 06/26/25 History desvenlafaxine succinate 100 mg 100 mg PO DAILY #30 tabs 01/13/25 06/26/25 Rx tablet,extended release 24 hr adalimumab 40 mg/0.4 mL 40 mg subcut Q2W 05/01/25 06/26/25 History subcutaneous syringe kit (Humira(CF)) dulaglutide 3 mg/0.5 mL 3 mg (0.5 mL) subcut QWEEK #2 mL 0 05/07/25 06/26/25 Rx subcutaneous pen injector blood sugar diagnostic (Accu-Chek #100 ea 05/14/25 06/26/25 Rx Nathalie Plus test strips) cyclobenzaprine 5 mg tablet 5 mg PO TID PRN muscle spasm #30 0 06/05/25 06/26/25 Rx tabs nadolol 40 mg tablet 40 mg PO QDAY #90 tabs 06/23/25 Rx gabapentin 600 mg tablet 300 mg PO QHS 06/26/25 06/26/25 Hi story metformin 500 mg tablet,extended 1,000 mg PO BID 06/26/25 History release 24 hr mirtazapine 30 mg tablet 30 mg PO QHS 06/26/25 06/26/25 His tory prazosin 1 mg capsule 3 mg PO QHS 06/26/25 History tramadol 50 mg tablet 50 mg PO Q8H PRN pain (scale score 06/26/25 06/26/25 Rx 7-10) #21 tabs Nurse's Note: . [facility] Medical History Back problem Kidney stone PCOS (polycystic ovarian syndrome) Rheumatoid arthritis Bursitis of left shoulder MVP (mitral valve prolapse) Celiac disease Lupus Carpal tunnel syndrome Diabetes Pulmonary hypertension Hyperlipidemia Surgical History (Updated 06/26/25 @ 14:49 by Lainey Ulloa MA) S/P partial hysterectomy H/O lateral meniscus repair of right knee History of carpal tunnel surgery Hx of reduction mammoplasty Hx of appendectomy Hx of cholecystectomy Family History Mother Autoimmune disease lupus Parkinson disease Hypertension Grandfather Colon cancer Father Hypertension Myocardial infarction, Onset Age: 51 Grandmother Breast cancer Sister Crohn's disease Social History adopted: No household members: family current occupational status: unemployed pets and animals: Yes (2) pets and animals: cat(s) sexually active: No Smoking Status: Former smoker quit date: 11/13/13 pack-years: 15 Tobacco: How many years used: 20 Electronic Cigarette Use: not used alcohol intake: never substance use type: does not use diet: gluten free caffeine: Yes (1) Type: coffee frequency: does not exercise seatbelt use: always do you feel safe at home: Yes HPI HPI Details: LUKASZ DIAZ, is a 44 F who presents to the office today for continued right lower quadrant pain. Pt states she thought it was the hip that hurt but now knows its RLQ pain. She states the act of sitting on the toilet not actually going makes the pain come on. Pt has been treating w/ tramadol which does help. Pt had a hysterectomy 9 years ago, she still has ovaries and has h/o pcos. She does not menstruate any more but thinks she may be getting ovarian cysts. Pt states she has not seen an obgyn in years, she does not have cervix. pt denies radiating pain, or sob when she gets the pain ROS Const Constitutional: No body ache, chills, excessive sweating, fatigue, fever(s), fr (more content not included)... Normal [facility] CNOVon 06-19-2025 CNOV Office Visit ([facility]) LUKASZ DIAZ ([id number]) 1980 F Date Time Provider Department 06/19/25 5:15 PM MABEL GARCIA During your visit today, we recorded the following information about you: Temperature Pulse Respiration Blood pressure 97.6 degrees 83/minute 18/minute 116/81 Weight 109.2 kg Mabel Garcia APRN.MAT MAN 06/19/2025 5:32 PM Signed Subjective Lukasz Tijerina Joe is a 44 year old female. HPI Patient presents today concern for possible recurrent shingles rash. She notes that about 3 days ago she developed an itchy irritating rash just above her left hip. She otherwise denies any fever cough congestion however she does note some fatigue. Review of Systems As above Objective BP 116/81 Pulse 83 Temp 36.4 ?C (97.6 ?F) Resp 18 Wt 109.2 kg (240 lb 11.9 oz) LMP 09/02/2015 SpO2 98% BMI 35.55 kg/m? Physical Exam Vitals and nursing note reviewed. Constitutional: General: She is not in acute distress. Appearance: Normal appearance. She is not ill-appearing. HENT: Head: Normocephalic. Pulmonary: Effort: Pulmonary effort is normal. Abdominal: Tenderness: There is no right CVA tenderness. Musculoskeletal: General: Normal range of motion. Skin: General: Skin is warm. Comments: Linear vesicular rash on erythematous base along the left flank just above the left hip. Neurological: General: No focal deficit present. Mental Status: She is alert and oriented to person, place, and time. Psychiatric: Mood and Affect: Mood normal. Behavior: Behavior normal. ASSESSMENT/PLAN: 1. Rash - ICD9: 782.1, ICD10: R21 -Patient was swabbed for herpes and due to patient's concern for recurrent herpes she was started on valacyclovir. Patient understands that if symptoms are not improving and the test is negative she will discontinue the medication however if symptoms do seem to be improving she may continue it. She is to otherwise follow-up with PCP for any new or worsening concerns. - HERPES SIMPLEX VIRUS (HSV-1 AND HSV-2) AND VARICELLA ZOSTER VIRUS (VZV), NAAT, LESION SWAB - VALACYCLOVIR 1 GRAM TABLET Mabel Garcia APRN.MAT MAN Allergies As of Date: 06/19/2025 Noted Allergy Reaction LAMICTAL (LAMOTRIGINE) 03/19/2021 14 - Other: See Comments Comments: Made her suicidal TORADOL (KETOROLAC) 03/06/2014 12 - Shortness of Breath Comments: Elevates BP; dyspnea ZOLOFT (SERTRALINE HCL) 01/02/2016 14 - Other: See Comments Comments: suicidal. ADHESIVE 02/12/2019 14 - Other: See Comments Comments: Per pt not allergic to adhesive tape - its paper tape that she's allergic to IBUPROFEN 01/10/2024 16 - Unknown NAPROXEN 02/12/2019 14 - Other: See Comments PSYLLIUM 01/10/2024 16 - Unknown ACTOS (PIOGLITAZONE HCL) 11/15/2016 14 - Other: See Comments Comments: Sweats and chills CELEXA (CITALOPRAM) 08/22/2018 5 - Intolerance Comments: Electrical shock feelings EGGS (EGG) 08/28/2013 8 - GI Upset FENOFIBRATE 07/27/2017 8 - GI Upset LIPITOR (ATORVASTATIN) 11/09/2015 17 - Myalgia PLAQUENIL (HYDROXYCHLOROQUINE) 02/12/2020 14 - Other: See Comments Comments: GI upset and pain PRAVACHOL (PRAVASTATIN SODIUM) 07/27/2017 8 - GI Upset ZOCOR (SIMVASTATIN) 02/12/2020 17 - Myalgia Date Reviewed: 06/19/2025 Reviewed by: Bebe Lawton MA - Fully Assessed Reason for Visit: Shingles [870] Cmt: L flank rash x today, fatigue x3 days Primary Visit Diagnosis:Rash [R21] Order(s):HERPES SIMPLEX VIRUS (HSV-1 AND HSV-2) AND VARICELLA ZOSTER VIRUS (VZV), NAAT, LESION SWAB [SQHSVVZV] Order #: [id number] FUTURE valACYclovir (VALTREX) 1 gram tabletTake 1 tablet by mouth three times a day for 10 days.Disp: 30 tabletRfl: 0 HERPES SIMPLEX VIRUS (HSV-1 AND HSV-2) AND VARICELLA ZOSTER VIRUS (VZV), NAAT, LESION SWAB [[id number]] Order #: [id number]. #:[id number] Prescriptions as of 06/19/2025 - valACYclovir (VALTREX) 1 gram tablet Take 1 tablet by mouth three times a day for 10 days. - ondansetron (ZOFRAN) 4 mg tablet Take 1 tablet by mouth every 12 hours as needed for nausea/vomiting. - sulfaSALAzine (AZULFIDINE) 500 mg tablet Take 5 tablets by mouth once daily. Per Rheumatology - dicyclomine (BENTYL) 20 mg tablet Take one tablet by mouth three times daily as needed for abdominal cramping - JARDIANCE 10 mg tablet Take 1 tablet by mouth every afternoon. - TRUE METRIX GLUCOSE METER as directed. - promethazine (PHENERGAN) 25 mg tablet Take 1 tablet by mouth every 4 hours as needed for nausea/vomiting. - nadolol (CORGARD) 40 mg tablet Take 1 tablet by mouth two times a day. - dulaglutide (TRULICITY) 1.5 mg/0.5 mL pen injector Inject 1.5 mg subcutaneously one time a week. Inject once per week. Discard Pen After - omeprazole (PRILOSEC) 40 mg capsule Take 1 capsule by mouth once daily. - metFORMIN ER (GLUCOPHAGE XR) 500 mg 24 hr tablet Take 2 tablets by mouth two times a day. (more content not included)... Normal [facility] HSV+VZV DNA BILL+probe Ql (Un sp spec)on 06-19-2025 HSV 1 DNA BILL+probe Ql (Unsp spec) Not detected Normal Not Detected [facility] Comment on above: Order Comment: Speci men Type: SWABOrdering Facility: [facility] Address: [address] [place] [address] Performed By: #### 3 3027-4 ####[facility] [id number] [place] [address] [place] HSV 2 DNA BILL+probe Ql (Unsp spec) Not detected Normal Not Detected [facility] Comment on above: Order Comment: Speci men Type: SWABOrdering Facility: [facility] Address: [address] [place] [address] Performed By: #### 3 3027-4 ####[facility] [id number] [address] [place] VZV DNA BILL+probe Ql (Unsp spec) Not detected Normal Not Detected [facility] Comment on above: Order Comment: Speci men Type: SWABOrdering Facility: [facility] Address: [address] [place] [address] Performed By: #### 3 3027-4 ####[facility] [id number] [place] [address] [place] HIP, UNI W/ Pelvis 2-3 Views on 06-12-2025 HIP, UNI W/ Pelvis 2-3 Views [facility] Imaging Services [address] [place] [address] HIP, UNI W/ Pelvis 2-3 Views MR#: [id number] Acct: [id number] Name: LUKASZ DIAZ Rep #: [id number] : 1980 F 44 From: Jimi Brizuela PCP: Dr. Esteban Ware MD Status: REG CLI Study: HIP, UNI W/ Pelvis 2-3 Views Date of Exam: Exam# [id number] Ordering Dr: Ghislaine Rodriguez PROCEDURE: HIP, UNI W/ PELVIS 2-3 VIEWS 06/12/2025 REASON FOR EXAM: S/P FALL RIGHT HIP/GROIN PAIN TECHNIQUE: HIP, UNI W/ PELVIS 2-3 VIEWS COMPARISON: None RAD/HIP, UNI W/ Pelvis 2-3 Views IMPRESSION: Prominent degenerative changes are seen of the visualized lower lumbar spine. Minimal to mild sacroiliac joint degenerative changes are noted. Mild degenerative changes are seen of the bilateral hip joints. No evidence of femoral head osteonecrosis. No acute fracture or dislocation is seen. If clinical concern persists, short-term follow-up imaging may be obtained to rule out a currently occult fracture. Reading Location: [place] [address] CC: ТАТЬЯНА Rodriguez; Dr. Esteban Ware MD Chef Manager: Signed Normal [facility] Internal Medicine Office Vis ito 06-12-2025 Internal Medicine Office Visit [facility] [address] [place] [address] [place] [address] OFFICE VISIT Date of Service: 06/12/25 MR#: [id number] Acct: [id number] Name: LUKASZ DIAZ Rep #: [id number] : 1980 Provider: ТАТЬЯНА de la cruz Age/Sex: 44/F [place] [facility] [place] Status: Signed Intake Vital Signs 05/01/25 10:47 06/12/25 15:38 Height 5 ft 9 in 5 ft 9 in Weight: 238 lb 240 lb 6 oz BMI 35.1 35.4 BP 128/80 H 130/78 H Blood Pressure Location Lt brachial Lt brachial Position Sitting Sitting Respiration 16 16 Pulse 72 76 Pulse Source Monitor Monitor Temp 96.8 F L 96.6 F L Temp Source Temporal Temporal Pulse Oximetry (%) 99 99 Oxygen Delivery Method room air room air Intake Visit Reasons: [facility] FU - FALL STILL IN PAIN Chief Complaint: Hip Pain/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 Accompanied by: Mother Is patient in pain?: Yes Pain scale (1-10): 7 Allergies hydroxychloroquine (From Plaquenil) Allergy (Intermediate, Verified 06/12/25 15:40) GI issues adhesive tape (paper tape) Allergy (Verified 06/12/25 15:40) Other ketorolac tromethamine (From Toradol) Allergy (Verified 06/12/25 15:40) Shortness of breath naproxen sodium (From Aleve) Allergy (Verified 06/12/25 15:40) Shortness of breath Penicillins Allergy (Verified 06/12/25 15:40) Rash Medications ???Medication ???Instructions ???Recorded ???Confirmed ???Type blood-glucose meter (Accu-Chek #1 ea 05/08/24 06/12/25 Rx Guide Glucose Meter) lancets (Accu-Chek Fastclix Lancet #100 ea 05/08/24 06/12/25 Rx Drum) empagliflozin 25 mg tablet 25 mg PO DAILY #90 tabs 01/09/25 0 06/12/25 Rx ondansetron HCl 4 mg tablet 4 mg PO QDAY PRN 01/09/25 06/12/25 History desvenlafaxine succinate 100 mg 100 mg PO DAILY #30 tabs 01/13/25 06/12/25 Rx tablet,extended release 24 hr metformin 500 mg tablet,extended 1,000 mg (2 x 500 mg) PO BID #360 01/13/25 06/12/25 Rx release 24 hr tabs prazosin 1 mg capsule 1 mg PO DAILY #30 caps 01/13/25 Rx nadolol 40 mg tablet 40 mg PO QDAY #90 tabs 03/17/25 Rx adalimumab 40 mg/0.4 mL 40 mg subcut Q2W 05/01/25 06/12/25 History subcutaneous syringe kit (Humira(CF)) gabapentin 600 mg tablet 300 mg PO QHS 05/01/25 06/12/25 Hi story mirtazapine 15 mg tablet 30 mg PO QHS 05/01/25 06/12/25 His tory dulaglutide 3 mg/0.5 mL 3 mg (0.5 mL) subcut QWEEK #2 mL 0 05/07/25 06/12/25 Rx subcutaneous pen injector blood sugar diagnostic (Accu-Chek #100 ea 05/14/25 06/12/25 Rx Nathalie Plus test strips) cyclobenzaprine 5 mg tablet 5 mg PO TID PRN muscle spasm #30 0 06/05/25 06/12/25 Rx tabs tramadol 50 mg tablet 50 mg PO Q8H PRN pain (scale score 06/12/25 06/12/25 Rx 7-10) #21 tabs Have you fallen in the past year?: Yes Nurse's Note: Patient presents with R hip/groin pain. She fell last week on Monday, and was seen at [place]. Was given Oxycodone to help with pain, but is out of medication now. Still has severe pain. Sitting here, pain is a 7 out of 10. Laying down helps with the pain. PFSH Medical History Back problem Kidney stone PCOS (polycystic ovarian syndrome) Rheumatoid arthritis Bursitis of left shoulder MVP (mitral valve prolapse) Celiac disease Lupus Carpal tunnel syndrome Diabetes Pulmonary hypertension Hyperlipidemia Surgical History H/O lateral meniscus repair of right knee History of carpal tunnel surgery Hx of reduction mammoplasty History of hysterectomy Hx of appendectomy Hx of cholecystectomy Family History Mother Autoimmune disease lupus Parkinson disease Hypertension Grandfather Colon cancer Father Hypertension Myocardial infarction, Onset Age: 51 Grandmother Breast cancer Sister Crohn's disease Social History adopted: No household members: family current occupational status: unemployed pets and animals: Yes (2) pets and animals: cat(s) sexually active: No Smoking Status: Former smoker quit date: 11/13/13 pack-years: 15 Tobacco: How many years used: 20 Electronic Cigarette Use: not used alcohol intake: never substance use type: does not use diet: gluten free caffeine: Yes (1) Type: coffee frequency: does not exercise seatbelt use: always do you feel safe at home: Yes HPI HPI Chief Complaint: Hip Pain/Hospital FU Details: LUKASZ DIAZ, is a 44 F who presents to the office today for continued pain in the right groin pelvis area after a fall. Patient fell 1 week ago. Patient was walking her dog on a leash when the dog took off running and the patient was pulled to the ground. Patient fell on her right knee and then (more content not included)... Normal [facility] Office Visit Reporton [address] [facility] [address] [place] [address] OFFICE VISIT Date of Service: 06/11/25 MR#: [id number] Acct: [id number] Patient: LUKASZ DIAZ Rep #: [id number] : 1980 Provider: RICARDO Vee Age/Sex: 44/F Location: [place] Status: Signed Intake Vital Signs 05/01/25 10:47 Height 1.75 m Weight: 107.955 kg BMI 35.1 BP 128/80 H Blood Pressure Location Lt brachial Position Sitting Respiration 16 Pulse 72 Pulse Source Monitor Temp 96.8 F L Temp Source Temporal Pulse Oximetry (%) 99 Oxygen Delivery Method room air Intake Visit Reasons: Pain Chief Complaint: hip/pelvic pain Allergies hydroxychloroquine (From Plaquenil) Allergy (Intermediate, Verified 05/01/25 10:46) GI issues adhesive tape (paper tape) Allergy (Verified 05/01/25 10:46) Other ketorolac tromethamine (From Toradol) Allergy (Verified 05/01/25 10:46) Shortness of breath naproxen sodium (From Aleve) Allergy (Verified 05/01/25 10:46) Shortness of breath Penicillins Allergy (Verified 05/01/25 10:46) Rash PFSH Medical History Back problem Kidney stone PCOS (polycystic ovarian syndrome) Rheumatoid arthritis Bursitis of left shoulder MVP (mitral valve prolapse) Celiac disease Lupus Carpal tunnel syndrome Diabetes Pulmonary hypertension Hyperlipidemia Surgical History H/O lateral meniscus repair of right knee History of carpal tunnel surgery Hx of reduction mammoplasty History of hysterectomy Hx of appendectomy Hx of cholecystectomy Family History Mother Autoimmune disease lupus Parkinson disease Hypertension Grandfather Colon cancer Father Hypertension Myocardial infarction, Onset Age: 51 Grandmother Breast cancer Sister Crohn's disease Social History (Updated 05/01/25 @ 11:[address] Esteban Ware MD) adopted: No household members: family current occupational status: unemployed pets and animals: Yes (2) pets and animals: cat(s) sexually active: No Smoking Status: Former smoker quit date: 11/13/13 pack-years: 15 Tobacco: How many years used: 20 Electronic Cigarette Use: not used alcohol intake: never substance use type: does not use diet: gluten free caffeine: Yes (1) Type: coffee frequency: does not exercise seatbelt use: always do you feel safe at home: Yes HPI HPI Chief Complaint: hip/pelvic pain Details: LUKASZ DIAZ, is a 44 F who presents to the virtual visit today for hip/pelvic pain. Patient had fallen on her knee and injured the knee and pelvic area. She went to [facility] and had a workup including xrays. Per the pt no injury was found and she was advised to take tylenol and motrin for pain. Pt notes no improvement in pain. She is able to walk. Exam Const General: cooperative, healthy appearing, comfortable, no acute distress, well developed and well groomed Nutritional Appearance: average body habitus and well nourished Orientation: alert, awake and oriented x3 Coding Level of Care Code Off vis,est,level 2 Diagnoses Pain R52 Pelvic pain R10.2 Assessment and Plan Assessment and Plan (1) Pain: (2) Pelvic pain: Status: Acute Plan: Pelvic pain following a fall. Pt already had a workup at [facility] with xrays. Tylenol and motrin was recommended prn. Pain has not improved. I have advise the patient that she will need a more thorough workup involving in person evaluation of her pain, possibly with more additional imaging needed. This is more than I am capable of obtaining in a virtual visit setting. I have offered to refer her to orthopedics which she declines at this time. I have advised she follow up in person with her PCP. Call today for soonest appointment. Time spent on virtual visit 10 minutes. Disclaimer: This visit was performed virtually via live audio and video at the request of the patient. As such the physical exam and testing is limited by what is able to be seen through the patient's camera and lighting which may vary in quality, and limited by what the patient is able to perform via clinician instruction. If there is no significant improvement or new complications, the patient should follow up [id number] with a clinician of the appropriate level of care. 06/11/25 1504 Date David Mei Signature: Date (if applicable) CC: Normal [facility] CNOVon 06-04-2025 OV Office Visit ([facility]OU[facility]) DEMRACO DIAZN Lilliana ([id number]) 1980 F Date Time Provider Department 06/04/25 12:30 PM FRANCESCO PORRAS During your visit today, we recorded the following information about you: Temperature Pulse Respiration Blood pressure 97.5 degrees 96/minute 18/minute 110/72 Weight 108.2 kg Francesco Porras APRN.MAT MAN 06/04/2025 12:40 PM Signed [facility] Subjective Lukasz Tijerina Joe is a 44 year old female. Patient presents with: Pelvic Pain: right side and fell this am while walking dog HPI 44-year-old female presents urgent care chief complaint right hip pain. Patient states this morning she was walking her dog when she fell striking her right knee on the ground. Is having a hard time bearing weight due to her right pelvic pain. Rates pain oh out of 10. No other concerns. Review of Systems Constitutional: Negative for activity change, diaphoresis, fatigue and fever. Musculoskeletal: Positive for gait problem. Negative for arthralgias, back pain, joint swelling, myalgias, neck pain and neck stiffness. Skin: Negative for pallor, rash and wound. Neurological: Negative for dizziness, seizures, syncope, weakness, light-headedness and numbness. Psychiatric/Behavioral: Negative for confusion. Objective BP 110/72 Pulse 96 Temp 36.4 ?C (97.5 ?F) Resp 18 Wt 108.2 kg (238 lb 8.6 oz) LMP 09/02/2015 SpO2 97% BMI 35.23 kg/m? Physical Exam Constitutional: Appearance: Normal appearance. She is normal weight. HENT: Head: Normocephalic. Eyes: Conjunctiva/sclera: Conjunctivae normal. Cardiovascular: Rate and Rhythm: Normal rate. Pulmonary: Effort: Pulmonary effort is normal. Musculoskeletal: Cervical back: Normal range of motion. Comments: Significant tenderness on palpation to right hip. Skin: Findings: No rash. Neurological: General: No focal deficit present. Mental Status: She is alert and oriented to person, place, and time. Mental status is at baseline. {ASSESSMENT/PLAN: 1. Right hip pain - ICD9: 719.45, ICD10: M25.551 Diagnosis right hip pain. We discussed x-ray in the office today. We discussed pain management options. Patient states pain is severe and would like to be seen in the ED. Will be seen at [facility] Francesco Porras APRN.MAT MAN MDM Procedures Allergies As of Date: 06/04/2025 Noted Allergy Reaction LAMICTAL (LAMOTRIGINE) 03/19/2021 14 - Other: See Comments Comments: Made her suicidal TORADOL (KETOROLAC) 03/06/2014 12 - Shortness of Breath Comments: Elevates BP; dyspnea ZOLOFT (SERTRALINE HCL) 01/02/2016 14 - Other: See Comments Comments: suicidal. ADHESIVE 02/12/2019 14 - Other: See Comments Comments: Per pt not allergic to adhesive tape - its paper tape that she's allergic to IBUPROFEN 01/10/2024 16 - Unknown NAPROXEN 02/12/2019 14 - Other: See Comments PSYLLIUM 01/10/2024 16 - Unknown ACTOS (PIOGLITAZONE HCL) 11/15/2016 14 - Other: See Comments Comments: Sweats and chills CELEXA (CITALOPRAM) 08/22/2018 5 - Intolerance Comments: Electrical shock feelings EGGS (EGG) 08/28/2013 8 - GI Upset FENOFIBRATE 07/27/2017 8 - GI Upset LIPITOR (ATORVASTATIN) 11/09/2015 17 - Myalgia PLAQUENIL (HYDROXYCHLOROQUINE) 02/12/2020 14 - Other: See Comments Comments: GI upset and pain PRAVACHOL (PRAVASTATIN SODIUM) 07/27/2017 8 - GI Upset ZOCOR (SIMVASTATIN) 02/12/2020 17 - Myalgia Date Reviewed: 06/04/2025 Reviewed by: Bertha Lovelace MA - Fully Assessed Reason for Visit: Pelvic Pain [282] Cmt: right side and fell this am while walking dog Primary Visit Diagnosis:Right hip pain [M25.551] Prescriptions as of 06/04/2025 - ondansetron (ZOFRAN) 4 mg tablet Take 1 tablet by mouth every 12 hours as needed for nausea/vomiting. - sulfaSALAzine (AZULFIDINE) 500 mg tablet Take 5 tablets by mouth once daily. Per Rheumatology - dicyclomine (BENTYL) 20 mg tablet Take one tablet by mouth three times daily as needed for abdominal cramping - JARDIANCE 10 mg tablet Take 1 tablet by mouth every afternoon. - TRUE METRIX GLUCOSE METER as directed. - promethazine (PHENERGAN) 25 mg tablet Take 1 tablet by mouth every 4 hours as needed for nausea/vomiting. - nadolol (CORGARD) 40 mg tablet Take 1 tablet by mouth two times a day. - dulaglutide (TRULICITY) 1.5 mg/0.5 mL pen injector Inject 1.5 mg subcutaneously one time a week. Inject once per week. Discard Pen After - omeprazole (PRILOSEC) 40 mg capsule Take 1 capsule by mouth once daily. - metFORMIN ER (GLUCOPHAGE XR) 500 mg 24 hr tablet Take 2 tablets by mouth two times a day. - desvenlafaxine 100 mg Tb24 Take 1 Tablet By Oral Route 1 time per day - mirtazapine (REMERON) 15 mg tablet Take 1 Tablet By Oral Route at bedtime. - Insulin Weston, Disposable, (PEN NEEDLE) 29 gauge x 1/2 Use one needle per dose. one per day - blood sugar fredi (more content not included)... Normal [facility] XR HIP 2-3 VIEWS RIGHTon XR HIP 2-3 VIEWS RIGHT ORIGINAL EXAMINATION: 2 XRAY VIEWS OF THE RIGHT HIP06/04/2025 2:46 pm COMPARISON: None HISTORY: ORDERING SYSTEM PROVIDED HISTORY: Reason for Exam: pain, emergency patient FINDINGS: There is no fracture or dislocation. The visualized portion of the pelvic ring is intact. Multifocal enthesopathy and subchondral sclerosis in the right hip. IMPRESSION: No acute fracture or subluxation. I have personally reviewed the images of this examination and agree with the resident's findings and interpretation. Interpreted by: Leslie Ohara Preliminary Report By: Jimi Delgado MD Electronically signed By Leslie Ohara Dictated Date: 06/04/2025 2:47:01 PM Prelim Date: 06/04/2025 2:55:16 PM Sign Date: 06/04/2025 2:55:16 PM Ordering Provider: ENOC JASON [facility] XR KNEE 1 OR 2 VIEWS RIGHTon 06-04-2025 XR KNEE 1 OR 2 VIEWS RIGHT ORIGINAL EXAMINATION: TWO XRAY VIEWS OF THE RIGHT KNEE06/04/2025 2:09 pm COMPARISON: None HISTORY: ORDERING SYSTEM PROVIDED HISTORY: Reason for Exam: pain FINDINGS: No fracture or dislocation is seen. There is tricompartmental degenerative changes, most pronounced at the medial compartment with subchondral sclerosis marginal spurring and slight meniscal calcifications. There are no suspicious osseous lesions. No significant joint effusion is seen. IMPRESSION: No acute fracture or subluxation. I have personally reviewed the images of this examination and agree with the resident's findings and interpretation. Interpreted by: Leslie Ohara Preliminary Report By: Jimi Delgado MD Electronically signed By Leslie Ohara Dictated Date: 06/04/2025 2:14:23 PM Prelim Date: 06/04/2025 2:26:05 PM Sign Date: 06/04/2025 2:26:05 PM Ordering Provider: ENOC JASON [facility] Laboratory - Hematology and Cell countsOrdered By: Esteban Ware on 05-01-2025 HbA1c (Bld) [Mass fraction] 8.6 % High 4.2-6.3 [facility] Internal Medicine Office Vis iton 04-29-2025 Internal Medicine Office Visit [facility] [address] [place], [place] [id number] OFFICE VISIT Date of Service: 05/01/25 MR#: [id number] Acct: [id number] Name: LUKASZ DIAZ Rep #: [id number] : 1980 Provider: Dr. 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 Accompanied by: Self Is patient in pain?: No Allergies hydroxychloroquine (From Plaquenil) Allergy (Intermediate, Verified 05/01/25 10:46) GI issues adhesive tape (paper tape) Allergy (Verified 05/01/25 10:46) Other ketorolac tromethamine (From Toradol) Allergy (Verified 05/01/25 10:46) Shortness of breath naproxen sodium (From Aleve) Allergy (Verified 05/01/25 10:46) Shortness of breath Penicillins Allergy (Verified 05/01/25 10:46) Rash Medications ???Medication ???Instructions ???Recorded ???Confirmed ???Type blood sugar diagnostic (Accu-Chek #100 ea 05/08/24 05/01/25 Rx Nathalie Plus test strips) blood-glucose meter (Accu-Chek #1 ea 05/08/24 05/01/25 Rx Guide Glucose Meter) lancets (Accu-Chek Fastclix Lancet #100 ea 05/08/24 05/01/25 Rx Drum) empagliflozin 25 mg tablet 25 mg PO DAILY #90 tabs 01/09/25 0 05/01/25 Rx ondansetron HCl 4 mg tablet 4 mg PO QDAY PRN 01/09/25 05/01/25 History desvenlafaxine succinate 100 mg 100 mg PO DAILY #30 tabs 01/13/25 05/01/25 Rx tablet,extended release 24 hr metformin 500 mg tablet,extended 1,000 mg (2 x 500 mg) PO BID #360 01/13/25 05/01/25 Rx release 24 hr tabs prazosin 1 mg capsule 1 mg PO DAILY #30 caps 01/13/25 Rx cyclobenzaprine 5 mg tablet 5 mg PO TID PRN muscle spasm #30 0 03/12/25 05/01/25 Rx tabs nadolol 40 mg tablet 40 mg PO QDAY #90 tabs 03/17/25 Rx dulaglutide 1.5 mg/0.5 mL 1.5 mg (0.5 mL) subcut QWEEK #2 mL 04/21/25 05/01/25 Rx subcutaneous pen injector adalimumab 40 mg/0.4 mL 40 mg subcut Q2W 05/01/25 05/01/25 History subcutaneous syringe kit (Humira(CF)) gabapentin 600 mg tablet 300 mg PO QHS 05/01/25 05/01/25 Hi story mirtazapine 15 mg tablet 30 mg PO QHS 05/01/25 05/01/25 His tory PFSH Medical History Back problem Kidney stone PCOS (polycystic ovarian syndrome) Rheumatoid arthritis Bursitis of left shoulder MVP (mitral valve prolapse) Celiac disease Lupus Carpal tunnel syndrome Diabetes Pulmonary hypertension Hyperlipidemia Surgical History H/O lateral meniscus repair of right knee History of carpal tunnel surgery Hx of reduction mammoplasty History of hysterectomy Hx of appendectomy Hx of cholecystectomy Family History Mother Autoimmune disease lupus Parkinson disease Hypertension Grandfather Colon cancer Father Hypertension Myocardial infarction, Onset Age: 51 Grandmother Breast cancer Sister Crohn's disease Social History (Updated 05/01/25 @ 11:[address] Esteban Ware MD) adopted: No household members: family current occupational status: unemployed pets and animals: Yes (2) pets and animals: cat(s) sexually active: No Smoking Status: Former smoker quit date: 11/13/13 pack-years: 15 Tobacco: How many years used: 20 Electronic Cigarette Use: not used alcohol intake: never substance use type: does not use diet: gluten free caffeine: Yes (1) Type: coffee frequency: does not exercise seatbelt use: always do you feel safe at home: Yes Questionnaire PQH-9 BMS Over the last 2 weeks, how often have you been bothered by any of the following problems? 1. Little interest or pleasure in doing things: not at all 2. Feeling down, depressed, or hopeless: not at all 3. Trouble falling or staying asleep, or sleeping too much: not at all 4. Feeling tired or having little energy: more than half the days 5. Poor appetite or overeating: not at all 6. Feeling bad about yourself - or that you are a failure or have let yourself and your family down: not at all 7. Trouble concentrating on things, such as reading the newspaper or watching television: not at all 8. Moving or speaking so slowly that other people could have noticed? - Or the opposite - being so fidgety or restless that you have been moving around a lot more than usual: more than half the days 9. Thoughts that you would be better off or of hurting yourse (more content not included)... Normal [facility] C REACTIVE PROTEINon 025 CRP High sensitivity method [Mass/Vol] 19.47 mg/L High NINF - 10.00 mg/L [facility] Interpretation and review of laboratory results Abnormal [facility] CRP [Mass/Vol] 19.47 mg/L High <10.00 [facility] Comment on above: Performed By: #### C RP #### [facility] (DEFAULT) [address] [address] DIALYSIS HEP PANEL-CHRONICon 04-09-2025 Hep B Core Ab,Total (IgG+IgM) Negative Normal Negative [facility] Comment on above: Performed By: #### L [id number] #### [facility] (DEFAULT) [address] [address] Hep B Surface Ab Negative Normal Negative [facility] Comment on above: Performed By: #### L [id number] #### [facility] (DEFAULT) [address] [address] Hepatitis C Antibody Negative Normal Negative [facility] Comment on above: Performed By: #### L [id number] #### [facility] (DEFAULT) [address] [address] HEP B SURFACE AG-Bharat 05- Hepatitis B Surface Ag-Stat Negative Normal Negative [facility] Comment on above: Performed By: #### L [id number] #### [facility] (DEFAULT) [address] [address] M TUBERCULOSIS BY QUANTIFERO Tan Junior 04-09-2025 M. TB Mitogen-Nil 9.75 IU/mL Normal [facility] Comment on above: Order Comment: The M . Tuberculosis antigen levels cannot be correlated to stage or degree of infection, response to therapy or likelihood for progression to active disease. Results from QuantiFERON TB Gold Plus must be used in conjunction with individual epidemiological history, current medical status, and results of other diagnostic evaluation. Performed By: #### Q FTB #### [facility] (DEFAULT) [address] [address] M. TB Nil 0.25 IU/mL Normal [facility] Comment on above: Order Comment: The M . Tuberculosis antigen levels cannot be correlated to stage or degree of infection, response to therapy or likelihood for progression to active disease. Results from QuantiFERON TB Gold Plus must be used in conjunction with individual epidemiological history, current medical status, and results of other diagnostic evaluation. Performed By: #### Q FTB #### [facility] (DEFAULT) [address] [address] M. TB TB1-Nil 0.00 IU/mL Normal [facility] Comment on above: Order Comment: The M . Tuberculosis antigen levels cannot be correlated to stage or degree of infection, response to therapy or likelihood for progression to active disease. Results from QuantiFERON TB Gold Plus must be used in conjunction with individual epidemiological history, current medical status, and results of other diagnostic evaluation. Performed By: #### Q FTB #### [facility] (DEFAULT) [address] [address] M. TB TB2-Nil 0.00 IU/mL Normal [facility] Comment on above: Order Comment: The M . Tuberculosis antigen levels cannot be correlated to stage or degree of infection, response to therapy or likelihood for progression to active disease. Results from QuantiFERON TB Gold Plus must be used in conjunction with individual epidemiological history, current medical status, and results of other diagnostic evaluation. Performed By: #### Q FTB #### [facility] (DEFAULT) [address] [address] M. Tuberculosis by Quantiferon in tube Negative Normal Negative [facility] Comment on above: Order Comment: The M . Tuberculosis antigen levels cannot be correlated to stage or degree of infection, response to therapy or likelihood for progression to active disease. Results from QuantiFERON TB Gold Plus must be used in conjunction with individual epidemiological history, current medical status, and results of other diagnostic evaluation. Performed By: #### Q FTB #### [facility] (DEFAULT) [address] [place] [address] SEDIMENTATION RATE, AUTOMATE Don 04-09-2025 ESR (Bld) [Velocity] 17 mm/h [facility] Interpretation and review of laboratory results Normal [facility] ESR Westergren 17 mm/hr Normal <20 [facility] Comment on above: Performed By: #### E SR #### [facility] (DEFAULT) [address] [address] AST(SGOT)on 03-18-2025 AST [Catalytic activity/Vol] 73 U/L High <=31 [facility] Comment on above: Performed By: #### L 100.0100, L501.1000, L501.4405, L501.4100, L501.1105, L501.4305 ####[facility] [id number] [place], [place], [id number] Absolute lymphocyte counton 03-18-2025 Lymphocytes Auto (Unsp spec) [#/Vol] 3.79 10*3/uL 0.83-4.51 [facility] Absolute neutrophil counton 03-18-2025 Neutrophils (Bld) [#/Vol] 6.2 10*3/uL 2.0-7.7 [facility] Alanine Aminotransferas (SGP T)on 03-18-2025 ALT [Catalytic activity/Vol] 64 U/L High <=34 [facility] Comment on above: Performed By: #### L 501.4305, L501.1000, L501.4405, L501.6710, L101.9900, L501.4100, L100.0100 #### [facility] [address] [place], [address] Alkaline Phosphataseon 03-18 ALK PHOS 101 U/L Normal 35-104 [facility] Comment on above: Performed By: #### L 100.0100, L501.1000, L501.4405, L501.4100, L501.1105, L501.4305 ####[facility] [address] [place], [place], [id number] Automated lymphocyte count a s percentage of total leukocyteson 03-18-2025 Lymphocytes/100 WBC Auto (Unsp spec) 33.0 % 19-41 [facility] BUNon 03-18-2025 Urea nitrogen [Mass/Vol] 9 mg/dL Normal 4-19 [facility] Comment on above: Performed By: #### L 100.0100, L501.1000, L501.4405, L501.4100, L501.1105, L501.4305 ####[facility] [address] [place], [place], [id number] Basophil percentageon 2024 Basophils/100 WBC (Bld) 0.7 % 0-1 [facility] CBC W/Diff, Automatedon Absolute Lymph 3.79 X10 3/uL Normal 0.83-4.51 [facility] Comment on above: Performed By: #### L 100.0100, L501.1000, L501.4405, L501.4100, L501.1105, L501.4305 ####[facility] [address] [place], [address] Absolute Neut 6.2 X10 3/uL Normal 2.0-7.7 [facility] Comment on above: Performed By: #### L 100.0100, L501.1000, L501.4405, L501.4100, L501.1105, L501.4305 ####[facility] [address] [place], [address] Basophils/100 WBC (Bld) 0.7 % Normal 0-1 [facility] Comment on above: Performed By: #### L 100.0100, L501.1000, L501.4405, L501.4100, L501.1105, L501.4305 ####[facility] [address] [place], [address] Eosinophils/100 WBC (Bld) 1.0 % Normal 0-5 [facility] Comment on above: Performed By: #### L 100.0100, L501.1000, L501.4405, L501.4100, L501.1105, L501.4305 ####[facility] [address] [place], [address] Erythrocyte distribution width (RBC) [Ratio] 12.8 % Normal 11.6-14.6 [facility] Comment on above: Performed By: #### L 100.0100, L501.1000, L501.4405, L501.4100, L501.1105, L501.4305 ####[facility] [address] [place], [address] Hematocrit (Bld) [Volume fraction] 45.0 % Normal 37-47 [facility] Comment on above: Performed By: #### L 100.0100, L501.1000, L501.4405, L501.4100, L501.1105, L501.4305 ####[facility] [address] [place], [address] Hemoglobin (Bld) [Mass/Vol] 15.3 g/dL High 12.0-15.0 [facility] Comment on above: Performed By: #### L 100.0100, L501.1000, L501.4405, L501.4100, L501.1105, L501.4305 ####[facility] [address] [place], [address] IG% 0.400 Normal 0.0-0.9 [facility] Comment on above: Result Comment: IG% - Immature Granulocytes (promyelocytes, myelocytes and metamyelocytes) > 1% indicates that a LEFT SHIFT is Present. Performed By: #### L 100.0100, L501.1000, L501.4405, L501.4100, L501.1105, L501.4305 ####[facility] [address] [place], [address] Lymphocytes/100 WBC (Bld) 33.0 % Normal 19-41 [facility] Comment on above: Performed By: #### L 100.0100, L501.1000, L501.4405, L501.4100, L501.1105, L501.4305 ####[facility] [address] [place], [address] MCH (RBC) [Entitic mass] 31.5 pg Normal 27.0-32.0 [facility] Comment on above: Performed By: #### L 100.0100, L501.1000, L501.4405, L501.4100, L501.1105, L501.4305 ####[facility] [address] [place], [address] MCHC (RBC) [Mass/Vol] 34.0 g/dL Normal 32-36 [facility] Comment on above: Performed By: #### L 100.0100, L501.1000, L501.4405, L501.4100, L501.1105, L501.4305 ####[facility] [address] [place], [address] MCV (RBC) [Entitic vol] 92.6 fL Normal 81-99 [facility] Comment on above: Performed By: #### L 100.0100, L501.1000, L501.4405, L501.4100, L501.1105, L501.4305 ####[facility] [address] [place], [address] Monocytes/100 WBC (Bld) 10.5 % High 0-10 [facility] Comment on above: Performed By: #### L 100.0100, L501.1000, L501.4405, L501.4100, L501.1105, L501.4305 ####[facility] [address] [place], [address] Neutrophils/100 WBC (Bld) 54.4 % Normal 47-70 [facility] Comment on above: Performed By: #### L 100.0100, L501.1000, L501.4405, L501.4100, L501.1105, L501.4305 ####[facility] [address] [place], [address] Nucleated RBC (Bld) [#/Vol] 0 10*3/uL Normal 0-5 [facility] Comment on above: Performed By: #### L 100.0100, L501.1000, L501.4405, L501.4100, L501.1105, L501.4305 ####[facility] [address] [place], [address] Platelet mean volume (Bld) [Entitic vol] 11.4 fL Normal 6.2-12.0 [facility] Comment on above: Performed By: #### L 100.0100, L501.1000, L501.4405, L501.4100, L501.1105, L501.4305 ####[facility] [address] [place], [address] Platelets (Bld) [#/Vol] 272 10*3/uL Normal 150-450 [facility] Comment on above: Performed By: #### L 100.0100, L501.1000, L501.4405, L501.4100, L501.1105, L501.4305 ####[facility] [address] [place], [address] RBC (Bld) [#/Vol] 4.86 10*6/uL Normal 4.2-5.4 [facility] Comment on above: Performed By: #### L 100.0100, L501.1000, L501.4405, L501.4100, L501.1105, L501.4305 ####[facility] [address] [place], [address] RDW SD 43.5 fl Normal 35.1-43.9 [facility] Comment on above: Performed By: #### L 100.0100, L501.1000, L501.4405, L501.4100, L501.1105, L501.4305 ####[facility] [address] [place], [address] WBC (Bld) [#/Vol] 11.5 10*3/uL High 4.4-11.0 [facility] Comment on above: Performed By: #### L 100.0100, L501.1000, L501.4405, L501.4100, L501.1105, L501.4305 ####[facility] [address] [place], [address] Eosinophil percentageon 05- Eosinophils/100 WBC (Bld) 1.0 % 0-5 [facility] Erythrocyte distribution wid th ratioon 03-18-2025 Erythrocyte distribution width (RBC) [Ratio] 12.8 % 11.6-14.6 [facility] Erythrocyte distribution wid th standard deviationon 03-18-2025 Erythrocyte distribution width (RBC) [Ratio] 43.5 fl 35.1-43.9 [facility] Glomerular filtration rate ( GFR) estimation/1.73 sq m using serum, plasma, or whole bon 03-18-2025 GFR/1.73 sq M.predicted among non-blacks MDRD (S/P/Bld) [Vol rate/Area] 118 mL/min/{1.73_m2} >60 [facility] Comment on above: mL/min/1.73m2 CKD-EP I Creatinine Equation (2020) Hematocrit Auto (Bld) [Volum e fraction]on 03-18-2025 Hematocrit (Bld) [Volume fraction] 45.0 % 37-47 [facility] Hemoglobin measurementon Hemoglobin (Bld) [Mass/Vol] 15.3 g/dL High 12.0-15.0 [facility] Immature granulocytes/100 WB C Auto (Bld)on 03-18-2025 Immature granulocytes/100 WBC (Bld) 0.400 % 0.0-0.9 [facility] Comment on above: IG% - Immature Granu locytes (promyelocytes, myelocytes and metamyelocytes) > 1% indicates that a LEFT SHIFT is Present. Laboratory - Chemistry and C hemistry - challengeon 03-18-2025 AST [Catalytic activity/Vol] 73 U/L High <32 [facility] MCV (mean corpuscular volume ) determinationon 03-18-2025 MCV (RBC) [Entitic vol] 92.6 fL 81-99 [facility] Mean corpuscular hemoglobin (MCH) determinationon 03-18-2025 MCH (RBC) [Entitic mass] 31.5 pg 27.0-32.0 [facility] Mean corpuscular hemoglobin concentration (MCHC) determinationon 03-18-2025 MCHC (RBC) [Mass/Vol] 34.0 g/dL 32-36 [facility] Mean platelet volume determi nationon 03-18-2025 Platelet mean volume (Bld) [Entitic vol] 11.4 fL 6.2-12.0 [facility] Monocyte percentageon 2024 Monocytes/100 WBC (Bld) 10.5 % High 0-10 [facility] Neutrophil percentageon 05-0 Neutrophils/100 WBC (Bld) 54.4 % 47-70 [facility] Nucleated red blood cell per centageon 03-18-2025 Nucleated RBC/100 WBC (Bld) [Ratio] 0 % 0-5 [facility] Platelet counton 03-18-2025 Platelets (Bld) [#/Vol] 272 10*3/uL 150-450 [facility] RBC Auto (Bld) [#/Vol]on RBC (Bld) [#/Vol] 4.86 10*6/uL 4.2-5.4 [facility] Serum Creatinine AND GFRon 0 03-18-2025 Creatinine [Mass/Vol] 0.54 mg/dL Low 0.70-1.20 [facility] Comment on above: Performed By: #### L 100.0100, L501.1000, L501.4405, L501.4100, L501.1105, L501.4305 ####[facility] [address] [place], [place], [id number] GFR/1.73 sq M.predicted among non-blacks MDRD (S/P/Bld) [Vol rate/Area] 118 mL/min/{1.73_m2} Normal >60 [facility] Comment on above: Result Comment: mL/m in/1.73m2 CKD-EPI Creatinine Equation (2020) Performed By: #### L 100.0100, L501.1000, L501.4405, L501.4100, L501.1105, L501.4305 ####[facility] [address] [place], [address] Serum creatinine measurement (mass/volume)on 03-18-2025 Creatinine [Mass/Vol] 0.54 mg/dL Low 0.70-1.20 [facility] Serum or plasma alanine barnes otransferase (ALT) measurementon 03-18-2025 ALT [Catalytic activity/Vol] 64 U/L High <35 [facility] Serum or plasma alkaline deangelo sphatase measurementon 03-18-2025 ALP [Catalytic activity/Vol] 101 U/L 35-104 [facility] Serum or plasma urea nitroge n measurement (mass/volume)on 03-18-2025 Urea nitrogen [Mass/Vol] 9 mg/dL 4-19 [facility] White blood cell (WBC) count on 03-18-2025 WBC (Bld) [#/Vol] 11.5 10*3/uL High 4.4-11.0 [facility] Allergen, Food Profileon CLAM <0.10 Normal Class 0 [facility] Comment on above: Performed By: #### L 501.4305, L501.1000, L501.4405, L501.6710, L101.9900, L501.4100, L100.0100 #### [facility] [address] [place], [place], [id number] CODFISH <0.10 Normal Class 0 [facility] Comment on above: Performed By: #### L 501.4305, L501.1000, L501.4405, L501.6710, L101.9900, L501.4100, L100.0100 #### [facility] [address] [place], [place], [address] COMMENT Comment Normal . [facility] Comment on above: Result Comment: Yasmin courtney of Specific IgE Class Description of Class ----- < 0.10 0 Negative 0.10 - 0.31 0/I Equivocal/Low 0.32 - 0.55 I Low 0.56 - 1.40 II Moderate 1.41 - 3.90 III High 3.91 - 19.00 IV Very High 19.01 - 100.00 V Very High >100.00 Very High Performed By: #### L 501.4305, L501.1000, L501.4405, L501.6710, L101.9900, L501.4100, L100.0100 #### [facility] [address] [place], [address] CORN <0.10 Normal Class 0 [facility] Comment on above: Performed By: #### L 501.4305, L501.1000, L501.4405, L501.6710, L101.9900, L501.4100, L100.0100 #### [facility] [address] [place], [address] EGG, WHITE <0.10 Normal Class 0 [facility] Comment on above: Performed By: #### L 501.4305, L501.1000, L501.4405, L501.6710, L101.9900, L501.4100, L100.0100 #### [facility] [address] [place], [address] MILK (COW) <0.10 Normal Class 0 [facility] Comment on above: Performed By: #### L 501.4305, L501.1000, L501.4405, L501.6710, L101.9900, L501.4100, L100.0100 #### [facility] [address] [place], [address] PEANUT <0.10 Normal Class 0 [facility] Comment on above: Performed By: #### L 501.4305, L501.1000, L501.4405, L501.6710, L101.9900, L501.4100, L100.0100 #### [facility] [address] [place], [address] SCALLOP <0.10 Normal Class 0 [facility] Comment on above: Performed By: #### L 501.4305, L501.1000, L501.4405, L501.6710, L101.9900, L501.4100, L100.0100 #### [facility] [address] [place], [address] SESAME SEED <0.10 Normal Class 0 [facility] Comment on above: Performed By: #### L 501.4305, L501.1000, L501.4405, L501.6710, L101.9900, L501.4100, L100.0100 #### [facility] [address] [place], [address] SHRIMP <0.10 Normal Class 0 [facility] Comment on above: Performed By: #### L 501.4305, L501.1000, L501.4405, L501.6710, L101.9900, L501.4100, L100.0100 #### [facility] [address] [place], [address] SOYBEAN <0.10 Normal Class 0 [facility] Comment on above: Performed By: #### L 501.4305, L501.1000, L501.4405, L501.6710, L101.9900, L501.4100, L100.0100 #### [facility] [address] [place], [address] WALNUT,(Food) <0.10 Normal Class 0 [facility] Comment on above: Performed By: #### L 501.4305, L501.1000, L501.4405, L501.6710, L101.9900, L501.4100, L100.0100 #### [facility] [address] [place], [address] WHEAT <0.10 Normal Class 0 [facility] Comment on above: Performed By: #### L 501.4305, L501.1000, L501.4405, L501.6710, L101.9900, L501.4100, L100.0100 #### [facility] [address] [place], [address] Beefon 03-02-2025 BEEF <0.10 Normal Class 0 [facility] Comment on above: Result Comment: Perf ormed at: [address] [id number] Block Hand: Charbel Cervantes MD, Phone: [phone] Performed By: #### L 501.4305, L501.1000, L501.4405, L501.6710, L101.9900, L501.4100, L100.0100 #### [facility] [address] [place], [place], [address] [facility] Mis. 4 COMMENT Normal . [facility] Comment on above: Order Comment: [id number] 7RED BEETS TIGER RMT Result Comment: Test Ordered: [id number] E082-DeL Red Beet Test(s) [id number]-MzH Red Beet were developed and had performance characteristics determined by [facility]. These tests have not been cleared or approved by the U.S. Food and Drug Administration. The FDA has determined that such clearance or approval is not necessary. These tests are used for clinical purposes. These should not be regarded as investigational or for research. F977-LnX Red Beet <0.10 kU/L BN Reference Range: Class 0 Levels of Specific IgE Class Description of Class ----- < 0.10 0 Negative 0.10 - 0.31 0/I Equivocal/Low 0.32 - 0.55 I Low 0.56 - 1.40 II Moderate 1.41 - 3.90 III High 3.91 - 19.00 IV Very High 19.01 - 100.00 V Very High >100.00 Very High Performed at: [facility] [address] [place], [place] [id number] Block Hand: Charbel Cervantes MD, Phone: [phone] Performed at: [facility] [address] [id number] Block Hand: Khurram Vasquez PhD, Phone: [phone] Performed By: #### L 501.4305, L501.1000, L501.4405, L501.6710, L101.9900, L501.4100, L100.0100 #### [facility] [place], [address] Laboratory - Miscellaneous t estsOrdered By: Meir Hamilton on 02-21-2025 Service comment (Unsp spec) [Interp] Comment . [facility] Comment on above: Levels of Specific I gE Class Description of Class ----- < 0.10 0 Negative 0.10 - 0.31 0/I Equivocal/Low 0.32 - 0.55 I Low 0.56 - 1.40 II Moderate 1.41 - 3.90 III High 3.91 - 19.00 IV Very High 19.01 - 100.00 V Very High >100.00 Very High Serum beef IgE antibody assa y (units/volume)Ordered By: Meir Hamilton on 02-21-2025 Beef IgE Qn (S) <0.10 kU/L Class 0 [facility] Comment on above: Performed at: [facility] [facility] [address] [place], [place] [id number] Director: Charbel Cervantes MD, Phone: [phone] Serum black walnut IgE antib theresa assay (units/volume)Ordered By: Meir Hamilton on 02-21-2025 [place] IgE Qn (S) <0.10 kU/L Class 0 [facility] Serum clam IgE antibody assa y (units/volume)Ordered By: Meir Hamilton on 02-21-2025 Clam IgE Qn (S) <0.10 kU/L Class 0 [facility] Serum codfish IgE antibody a ssay (units/volume)Ordered By: Meir Hamilton on 02-21-2025 Codfish IgE Qn (S) <0.10 kU/L Class 0 [facility] Serum corn IgE antibody assa y (units/volume)Ordered By: Meir Hamilton on 02-21-2025 Encampment IgE Qn (S) <0.10 kU/L Class 0 [facility] Serum cow milk IgE antibody assay (units/volume)Ordered By: Meir Hamilton on 02-21-2025 Cow milk IgE Qn (S) <0.10 kU/L Class 0 [facility] Serum egg white IgE antibody assay (units/volume)Ordered By: Meir Hamilton on 02-21-2025 Egg white IgE Qn (S) <0.10 kU/L Class 0 [facility] Serum peanut IgE antibody as say (units/volume)Ordered By: Meir Hamilton on 02-21-2025 Peanut IgE Qn (S) <0.10 kU/L Class 0 [facility] Serum soybean IgE antibody a ssay (units/volume)Ordered By: Meir Hamilton on 02-21-2025 Soybean IgE Qn (S) <0.10 kU/L Class 0 [facility] Serum wheat IgE antibody ass ay (units/volume)Ordered By: Meir Hamilton on 02-21-2025 Wheat IgE Qn (S) <0.10 kU/L Class 0 [facility] [id number] 01-23-2025 [facility] Misc. COMMENT Normal . [facility] Comment on above: Order Comment: [id number] 3ALPHA GAL IGE SERUM RT Result Comment: Test Ordered: [id number] Alpha-Gal IgE Panel Class Description Comment BN Reference Range: . Levels of Specific IgE Class Description of Class ----- < 0.10 0 Negative 0.10 - 0.31 0/I Equivocal/Low 0.32 - 0.55 I Low 0.56 - 1.40 II Moderate 1.41 - 3.90 III High 3.91 - 19.00 IV Very High 19.01 - 100.00 V Very High >100.00 Very High Immunoglobulin E, Total 6 IU/mL BN Reference Range: 6-495 L439-VbV Pork <0.10 kU/L BN Reference Range: Class 0 W760-WjH Beef <0.10 kU/L BN Reference Range: Class 0 H629-ZrY Flores <0.10 kU/L BN Reference Range: Class 0 F537-DpP Alpha-Gal <0.10 kU/L BN Reference Range: Class 0 Performed at: - [address] [id number] Block Hand: Charbel Cervantes MD, Phone: [phone] Performed at: - [address] [id number] Block Hand: Khurram Vasquez PhD, Phone: [phone] Performed By: #### L 501.4305, L501.1000, L501.4405, L501.6710, L101.9900, L501.4100, L100.0100 #### [facility] [address] [facility] [place], [place], [address] Laboratory - Hematology and Cell countsOrdered By: Esteban Ware on 01-09-2025 HbA1c (Bld) [Mass fraction] 8.1 % High 4.2-6.3 [facility] Internal Medicine Office Vis iton 01-08-2025 Internal Medicine Office Visit [facility] [place] [address] [place] [address] OFFICE VISIT Date of Service: 01/09/25 MR#: [id number] Acct: [id number] Name: LUKASZ DIAZ Rep #: [id number] : 1980 Provider: Dr. Esteban bansal MD Age/Sex: 44/F [place] [facility] [place] [facility] [place] Status: Signed Intake Vital Signs 09/19/24 10:54 01/09/25 14:50 Height 5 ft 9 in 5 ft 9 in Weight: 244 lb BMI 36.0 BP 118/74 Blood Pressure Location Lt brachial Position Sitting Respiration 18 Pulse 76 Pulse Source Monitor Temp 98.2 F Temp Source Temporal Pulse Oximetry (%) 99 Oxygen Delivery Method room air Intake Visit Reasons: DIABETES FU Chief Complaint: DIABETES FU Is patient in pain?: No Allergies hydroxychloroquine (From Plaquenil) Allergy (Intermediate, Verified 01/09/25 14:49) GI issues adhesive tape (paper tape) Allergy (Verified 01/09/25 14:49) Other ketorolac tromethamine (From Toradol) Allergy (Verified 01/09/25 14:49) Shortness of breath naproxen sodium (From Aleve) Allergy (Verified 01/09/25 14:49) Shortness of breath Penicillins Allergy (Verified 01/09/25 14:49) Rash Medications ???Medication ???Instructions ???Recorded ???Confirmed ???Type prazosin 1 mg capsule 1 mg PO DAILY 03/02/21 01/09/25 Hi story desvenlafaxine succinate 100 mg 100 mg PO DAILY 04/24/23 01/09/25 History tablet,extended release 24 hr blood sugar diagnostic (Accu-Chek #100 ea 05/08/24 01/09/25 Rx Nathalie Plus test strips) blood-glucose meter (Accu-Chek #1 ea 05/08/24 01/09/25 Rx Guide Glucose Meter) lancets (Accu-Chek Fastclix Lancet #100 ea 05/08/24 01/09/25 Rx Drum) mirtazapine 15 mg tablet 15 mg PO QHS 05/08/24 01/09/25 His tory nadolol 40 mg tablet mg PO 05/08/24 01/09/25 History metformin 500 mg tablet,extended 1,000 mg (2 x 500 mg) PO BID #120 10/31/24 01/09/25 Rx release 24 hr tabs cyclobenzaprine 5 mg tablet 5 mg PO TID PRN muscle spasm #30 0 11/21/24 01/09/25 Rx tabs dulaglutide 1.5 mg/0.5 mL 1.5 mg (0.5 mL) subcut QWEEK #2 mL 12/31/24 01/09/25 Rx subcutaneous pen injector empagliflozin 25 mg tablet 25 mg PO DAILY #90 tabs 01/09/25 0 01/09/25 Rx gabapentin 600 mg tablet 600 mg PO QHS 01/09/25 01/09/25 Hi story ondansetron HCl 4 mg tablet 4 mg PO QDAY PRN 01/09/25 01/09/25 History Have you fallen in the past year?: No Nurse's Note: pt would like to be tested for alpha ags syndrome states she has been exposed to ticks over the past summer and all of last year has had violent vomiting and extreme nausea episodes after eating red meat also reports bloating and diarrhea with these episodes. [facility] Medical History Back problem Kidney stone PCOS (polycystic ovarian syndrome) Rheumatoid arthritis Bursitis of left shoulder MVP (mitral valve prolapse) Celiac disease Lupus Carpal tunnel syndrome Diabetes Pulmonary hypertension Hyperlipidemia Surgical History H/O lateral meniscus repair of right knee History of carpal tunnel surgery Hx of reduction mammoplasty History of hysterectomy Hx of appendectomy Hx of cholecystectomy Family History Mother Autoimmune disease lupus Parkinson disease Hypertension Grandfather Colon cancer Father Hypertension Myocardial infarction, Onset Age: 51 Grandmother Breast cancer Sister Crohn's disease Social History adopted: No household members: family current occupational status: unemployed pets and animals: Yes (2) pets and animals: cat(s) sexually active: No Smoking Status: Former smoker quit date: 11/13/13 pack-years: 15 Tobacco: How many years used: 20 Electronic Cigarette Use: not used alcohol intake: never substance use type: does not use diet: gluten free caffeine: Yes (1) Type: coffee frequency: does not exercise seatbelt use: always do you feel safe at home: Yes HPI HPI Chief Complaint: DIABETES FU Details: LUKASZ DIAZ, is a 44 F who presents to the office today for a follow up. She is due for some routine blood work and screening. She isn't due for any immunizations. She doesn't smoke and does need refills. She reports she is eating healthy. She reports she is active. She does check her sugars at home. She is taking her medications as prescribed without problems, however, states she went without her trulicity for about a week. Usually it was in the 120-140s. She reports when she was without her medication for that week, it was in the 190s. She does try to monitor her carbohydrate and sugar intake. She is up to date on her diabetic eye exam, stating she is due next month. She doesn't check her blood (more content not included)... [facility] ([id number]) 1980 F Date Time Provider Department 12/11/24 LOUISE ESPINO GSTANATOLYR During your visit today, we recorded the following information about you: Aaliyah Jay Tech 12/11/2024 10:22 AM Signed PSS called patient to get her rescheduled due to provider being unavailable that day; Left voicemail Allergies As of Date: 12/11/2024 Noted Allergy Reaction LAMICTAL (LAMOTRIGINE) 03/19/2021 14 - Other: See Comments Comments: Made her suicidal TORADOL (KETOROLAC) 03/06/2014 12 - Shortness of Breath Comments: Elevates BP; dyspnea ZOLOFT (SERTRALINE HCL) 01/02/2016 14 - Other: See Comments Comments: suicidal. ADHESIVE 02/12/2019 14 - Other: See Comments Comments: Per pt not allergic to adhesive tape - its paper tape that she's allergic to IBUPROFEN 01/10/2024 16 - Unknown NAPROXEN 02/12/2019 14 - Other: See Comments PSYLLIUM 01/10/2024 16 - Unknown ACTOS (PIOGLITAZONE HCL) 11/15/2016 14 - Other: See Comments Comments: Sweats and chills CELEXA (CITALOPRAM) 08/22/2018 5 - Intolerance Comments: Electrical shock feelings EGGS (EGG) 08/28/2013 8 - GI Upset FENOFIBRATE 07/27/2017 8 - GI Upset LIPITOR (ATORVASTATIN) 11/09/2015 17 - Myalgia PLAQUENIL (HYDROXYCHLOROQUINE) 02/12/2020 14 - Other: See Comments Comments: GI upset and pain PRAVACHOL (PRAVASTATIN SODIUM) 07/27/2017 8 - GI Upset ZOCOR (SIMVASTATIN) 02/12/2020 17 - Myalgia Date Reviewed: 09/30/2024 Reviewed by: Bertha Lovelace MA - Fully Assessed Prescriptions as of 12/11/2024 - ondansetron (ZOFRAN) 4 mg tablet TAKE 1 TABLET BY MOUTH DAILY NEEDED FOR NAUSEA AND VOMITING - dicyclomine (BENTYL) 20 mg tablet Take one tablet by mouth three times daily as needed for abdominal cramping - JARDIANCE 10 mg tablet Take 1 tablet by mouth every afternoon. - TRUE METRIX GLUCOSE METER as directed. - promethazine (PHENERGAN) 25 mg tablet Take 1 tablet by mouth every 4 hours as needed for nausea/vomiting. - nadolol (CORGARD) 40 mg tablet Take 1 tablet by mouth two times a day. - dulaglutide (TRULICITY) 1.5 mg/0.5 mL pen injector Inject 1.5 mg subcutaneously one time a week. Inject once per week. Discard Pen After - omeprazole (PRILOSEC) 40 mg capsule Take 1 capsule by mouth once daily. - metFORMIN ER (GLUCOPHAGE XR) 500 mg 24 hr tablet Take 2 tablets by mouth two times a day. - desvenlafaxine 100 mg Tb24 Take 1 Tablet By Oral Route 1 time per day - mirtazapine (REMERON) 15 mg tablet Take 1 Tablet By Oral Route at bedtime. - Insulin Weston, Disposable, (PEN NEEDLE) 29 gauge x 1/2 Use one needle per dose. one per day - blood sugar diagnostic (BLOOD GLUCOSE TEST) test strip Test blood sugar(s) 2 times daily. Dx: Type 2 DM - Uncontrolled E11.65 Insulin: yes - Lancets lancets Test blood sugar(s) 1 times daily. Dx: Type 2 DM - Uncontrolled E11.65 Insulin: No - furosemide (LASIX) 20 mg tablet Take one tab by mouth as need when you have a 3 lb weight gain or more longer then two days. - gabapentin (NEURONTIN) 600 mg tablet Take 1 tablet by mouth twice daily for 180 days. Per [facility] - prazosin (MINIPRESS) 1 mg cap Take 3 caps AT BEDTIME for Anxiety Meds Comments as of 02/12/2019: Doesn't take Amaryl Birgit Sanchez RN 9:50 PM Problem List As Of Date 12/11/2024 Noted Resolved Abdominal pain, right lower quadrant [R10.31] 10/05/2010 01/18/2013 Abnormal glandular Papanicolaou smear of cervix*10/05/2010 PCOS (polycystic ovarian syndrome) [E28.2] 01/18/2013 DUB (dysfunctional uterine bleeding) [N93.8] 01/18/2013 MVP (mitral valve prolapse) [I34.1] Pulmonary HTN (HCC) [I27.20] Encounter for routine gynecological examination* Dyslipidemia [E78.5] 06/05/2014 Morbid obesity (HCC) [E66.01] 03/03/2015 07/13/2017 PTSD (post-traumatic stress disorder) [F43.10] 01/02/2016 Generalized anxiety disorder [F41.1] 01/02/2016 Essential hypertension with goal blood pressure*04/26/2016 Type 2 diabetes mellitus with hyperglycemia, wi*05/03/2016 Mild intermittent asthma without complication [*11/15/2016 Moderate episode of recurrent major depressive *11/15/2016 Current use of proton pump inhibitor [Z79.899] 11/15/2016 03/24/2022 Obesity (BMI 30-39.9) [E66.9] 07/13/2017 Neck pain on left side [M54.2] 08/23/2017 Muscle spasm [M62.838] 08/23/2017 Large breasts [N62] 08/23/2017 Well adult exam [Z00.00] 05/17/2018 Vitamin D deficiency [E55.9] 02/21/2019 Hypomagnesemia [E83.42] 04/02/2019 Seronegative rheumatoid arthritis (HCC) [M06.00]07/26/2019 Suicidal behavior with attempted self-injury (H*08/19/2020 03/24/2022 Medication management [Z79.899] 03/24/2022 Erythrocytosis [D75.1] 03/27/2022 SANTOS (nonalcoholic steatohepatitis) [K75.81] 09/04/2023 Encounter Status:Closed by CARLOS MURDOCK on 12/11/24 Normal [facility] Telephone Encounteron 2024 Drum Sealer Authentication Interface Message Text CALLED PATIENT NICOLE OJEDA SOONER IN ORAL SURGERY CALL BACK WE CAN MOVE HER UP FROM MARCH Normal [employer] C REACTIVE PROTEINon 025 CRP High sensitivity method [Mass/Vol] 12.51 mg/L High NINF - 10.00 mg/L [facility] CRP [Mass/Vol] 12.51 mg/L High <10.00 [facility] Comment on above: Performed By: #### C MPN, CRP #### [facility] (DEFAULT) [address] [place] [address] 35319 CBC,PLATELETSon 11-27-2024 Hematocrit (Bld) [Volume fraction] 48.5 % High 34.9-44.[address] [facility] Comment on above: Performed By: #### H [facility] #### [facility] (DEFAULT) [address] [place] [address] 31074 Hemoglobin (Bld) [Mass/Vol] 16.0 g/dL High 11.4-15.[address] [facility] Comment on above: Performed By: #### H EMOGC #### [facility] (DEFAULT) [address] [place] [address] 60641 MCV (RBC) [Entitic vol] 92.6 fL Normal 79.6-97.[address] [facility] Comment on above: Performed By: #### [facility] #### [facility] (DEFAULT) [address] [place] [address] 37376 Platelet mean volume (Bld) [Entitic vol] 11.4 fL Normal 8.5-12.[address] [facility] Comment on above: Performed By: #### H EMO #### [facility] (DEFAULT) [address] [place] [address] 12579 Platelets (Bld) [#/Vol] 278 10*3/uL Normal 150-[address] [facility] Comment on above: Performed By: #### H EMOGC #### [facility] (DEFAULT) [address] [place] [address] 87239 RBC (Bld) [#/Vol] 5.24 10*6/uL High 3.91-5.04 [facility] Comment on above: Performed By: #### H EMOGC #### [facility] (DEFAULT) [address] [place] [address] 66136 WBC (Bld) [#/Vol] 10.89 10*3/uL Normal 3.99-11.[address] [facility] Comment on above: Performed By: #### H EMOGC #### [facility] (DEFAULT) [address] [address] Erythrocyte distribution width (RBC) [Ratio] 12.5 % 10.8 - 14.9 % [facility] Interpretation and review of laboratory results Abnormal [facility] MCH (RBC) [Entitic mass] 30.5 pg 25.9 - 33.[address] [facility] MCHC (RBC) [Mass/Vol] 33.0 g/dL 31.4 - 35.9 g/dL [facility] Mean Cell Hgb 30.5 pg Normal 25.9-33.9 [facility] Comment on above: Performed By: #### H EMOGC #### [facility] (DEFAULT) [address] [place] [address] 55649 Mean Cell Hgb Conc 33.0 g/dL Normal 31.4-35.9 [facility] Comment on above: Performed By: #### H EMOGC #### [facility] (DEFAULT) [address] [address] RBC Distribution 12.5 % Normal 10.8-14.9 [facility] Comment on above: Performed By: #### H EMOGC #### [facility] (DEFAULT) [address] [place] [address] 15366 COMPREHENSIVE METABOLIC PANE Gael 11-27-2024 Albumin [Mass/Vol] 4.4 g/dL Normal 3.5-5.0 [facility] Comment on above: Performed By: #### C MPN, CRP #### [facility] (DEFAULT) [address] [place] [address] 35457 ALP [Catalytic activity/Vol] 75 U/L Normal 32-[address] [facility] Comment on above: Performed By: #### C MPN, CRP #### [facility] (DEFAULT) [address] [place] [address] 75016 ALT [Catalytic activity/Vol] 51 U/L High 9-[address] [facility] Comment on above: Performed By: #### C MPN, CRP #### [facility] (DEFAULT) [address] [place] [address] 21437 Anion gap [Moles/Vol] 16 mmol/L Normal 7-[address] [facility] Comment on above: Performed By: #### C MPN, CRP #### [facility] (DEFAULT) [address] [place] [address] 91083 AST [Catalytic activity/Vol] 54 U/L High 10-[address] [facility] Comment on above: Performed By: #### C MPN, CRP #### [facility] (DEFAULT) [address] [place] [address] 49545 Bilirubin [Mass/Vol] 0.3 mg/dL Normal <1.[address] [facility] Comment on above: Performed By: #### C MPN, CRP #### [facility] (DEFAULT) [address] [place] [address] 48022 Calcium [Mass/Vol] 9.9 mg/dL Normal 8.6-10.5 [facility] Comment on above: Performed By: #### C MPN, CRP #### [facility] (DEFAULT) [address] [place] [address] 12785 Chloride [Moles/Vol] 96 mmol/L Low 98-[address] [facility] Comment on above: Performed By: #### C MPN, CRP #### [facility] (DEFAULT) [address] [place] [address] 04843 CO2 [Moles/Vol] 29 mmol/L Normal 21-31 [facility] Comment on above: Performed By: #### C MPN, CRP #### [facility] (DEFAULT) [address] [place] [address] 15112 Creatinine [Mass/Vol] 0.44 mg/dL Low 0.50-1.[address] [facility] Comment on above: Performed By: #### C MPN, CRP #### [facility] (DEFAULT) [address] [place] [address] 58808 Glucose [Mass/Vol] 126 mg/dL High 70-99 [facility] Comment on above: Performed By: #### C MPN, CRP #### [facility] (DEFAULT) [address] [place] [address] 14984 Potassium [Moles/Vol] 4.4 mmol/L Normal 3.5-5.[address] [facility] Comment on above: Performed By: #### C MPN, CRP #### [facility] (DEFAULT) [address] [place] [address] 76961 Protein [Mass/Vol] 8.0 g/dL Normal 6.4-8.3 [facility] Comment on above: Performed By: #### C MPN, CRP #### [facility] (DEFAULT) [address] [place] [address] 38171 Sodium [Moles/Vol] 137 mmol/L Normal 135-145 [facility] Comment on above: Performed By: #### C MPN, CRP #### [facility] (DEFAULT) [address] [place] [address] 67109 Urea nitrogen [Mass/Vol] 8 mg/dL Normal 7-[address] [facility] Comment on above: Performed By: #### C MPN, CRP #### [facility] (DEFAULT) [address] [place] [address] 90845 Urea nitrogen/Creatinine [Mass ratio] 18 mg/mg Normal [facility] Comment on above: Performed By: #### C MPN, CRP #### [facility] (DEFAULT) [address] [place] [address] 49814 eGFR, CKD-EPI, Female - PINF [facility] Comment on above: Reported eGFR is bas ed on the CKD-EPI 2020 equation using creatinine, age, and sex. Osmolality Calc [Osmolality] [address] [facility] eGFR, CKD-EPI, Female > Normal >=60 [facility] [facility] Comment on above: Result Comment: Repo rted eGFR is based on the CKD-EPI 2020 equation using creatinine, age, and sex. Performed By: #### C MPN, CRP #### [facility] (DEFAULT) [address] [place] [address] 76340 Osmolality [Osmolality] 288 mosm/kg Normal 278-305 [facility] Comment on above: Performed By: #### C MPN, CRP #### [facility] (DEFAULT) [address] [place] [address] 18378 No Panel Informationon 11-27 Interpretation and review of laboratory results Abnormal [facility] SEDIMENTATION RATE, AUTOMATE Don 11-27-2024 ESR (Bld) [Velocity] 8 mm/h NINF [facility] Interpretation and review of laboratory results Normal [facility] ESR Westergren 8 mm/hr Normal <20 [facility] Comment on above: Performed By: #### E SR #### [facility] (DEFAULT) [address] [place] [address] 28077 XR HANDS-RHEUMATOLOGY EVAL O NLYon 11-27-2024 XR HANDS-RHEUMATOLOGY EVAL ONLY EXAM: XR HANDS-RHEUMATOLOGY EVAL ONLY, 11/27/2024 15:36 PM COMPARISON: Hand radiographs dated 07/12/2019 CLINICAL INDICATIONS: hand pain /RA RELEVANT CLINICAL HISTORY: M19.90:Inflammatory arthritis FINDINGS: 2 views of bilateral hands are obtained. Left hand There is no focal soft tissue swelling. No definite bone erosions. Mild cortical thickening and subtle deformity of the proximal phalanges most pronounced at the fourth proximal phalanx, unchanged compared to previous exam. Calcific density at the ulnar head is redemonstrated and may represent dystrophic soft tissue calcinosis or possibly calcific tendinopathy. Osteoarthritic changes at interphalangeal joints are present. Right hand No focal soft tissue swelling. No bone erosions. Osteoarthritic changes at interphalangeal joints are redemonstrated. IMPRESSION: No findings to suggest synovial inflammatory arthritis. Osteoarthritic changes at bilateral hands. Normal [facility] XR Hand - bilateral Viewson 11-27-2024 IMPRESSION: No findings to suggest synovial inflammatory arthritis. Osteoarthritic changes at bilateral hands. OLOGY EXAM: XR HANDS-RHEUM ATOLOGY EVAL ONLY, 11/27/2024 15:36 PM COMPARISON: Hand radiographs dated 07/12/2019 CLINICAL INDICATIONS: hand pain /RA RELEVANT CLINICAL HISTORY: M19.90:Inflammatory arthritis FINDINGS: 2 views of bilateral hands are obtained. Left hand There is no focal soft tissue swelling. No definite bone erosions. Mild cortical thickening and subtle deformity of the proximal phalanges most pronounced at the fourth proximal phalanx, unchanged compared to previous exam. Calcific density at the ulnar head is redemonstrated and may represent dystrophic soft tissue calcinosis or possibly calcific tendinopathy. Osteoarthritic changes at interphalangeal joints are present. Right hand No focal soft tissue swelling. No bone erosions. Osteoarthritic changes at interphalangeal joints are redemonstrated. RADIOLOGY Lise Castro MD - 11/27/2024 EXAM: XR HANDS-RHEUMATOLOGY EVAL ONLY, 11/27/2024 15:36 PM COMPARISON: Hand radiographs dated 07/12/2019 CLINICAL INDICATIONS: hand pain /RA RELEVANT CLINICAL HISTORY: M19.90:Inflammatory arthritis FINDINGS: 2 views of bilateral hands are obtained. Left hand There is no focal soft tissue swelling. No definite bone erosions. Mild cortical thickening and subtle deformity of the proximal phalanges most pronounced at the fourth proximal phalanx, unchanged compared to previous exam. Calcific density at the ulnar head is redemonstrated and may represent dystrophic soft tissue calcinosis or possibly calcific tendinopathy. Osteoarthritic changes at interphalangeal joints are present. Right hand No focal soft tissue swelling. No bone erosions. Osteoarthritic changes at interphalangeal joints are redemonstrated. IMPRESSION IMPRESSION: No findings to suggest synovial inflammatory arthritis. Osteoarthritic changes at bilateral hands. [facility] Radiology Study observation (narrative) [facility] XR Hand - bilateral ViewsOrd ered By: Lise Castro on 11-27-[address] [facility] Work Phone: CNOVon 09-30-2024 CNOV Office Visit (UCWSTR ) LUKASZ DIAZ ([id number]) 1980 F Date Time Provider Department 09/30/24 7:45 PM JOSE RAUL BOONE [facility] During your visit today, we recorded the following information about you: Temperature Pulse Respiration Blood pressure 98.1 degrees 88/minute 16/minute 100/64 Weight 109.4 kg Jose Raul Boone APRN.CNP 09/30/2024 7:55 PM Signed CC: Patient presents with: Chest Congestion: head congestion, cough x 8-9 days HPI: Lukasz Tijerina Joe is a 43 year old female who presents to the office with complaint of head congestion and sinus symptoms for 9 days. Symptoms are staying the same. Associated symptoms includes nasal congestion and facial pain/pressure. Denies nausea, vomiting , and diarrhea. Treatments tried include nothing so far. with no relief of symptoms. Sick contacts: unknown. History of asthma, frequent episodes of bronchitis, chronic bronchitis, bronchiectasis or COPD: No Smoker: No Seasonal/environmental allergies: No The ROS is otherwise negative. The patient's pmh, medications, allergies, and past visits are reviewed. PHYSICAL EXAM: BP 100/64 Pulse 88 Temp 36.7 ?C (98.1 ?F) Resp 16 Wt 109.4 kg (241 lb 2.9 oz) LMP 09/02/2015 SpO2 99% BMI 35.62 kg/m? General appearance: alert, cooperative, pleasant, in no acute distress Head: Normocephalic Eyes: EOM's intact, conjunctiva pink and moist, no icterus, sclera white, non-injected Ears: Right ear: External ear/canal- Normal, TM - clear with good landmarks. Left ear: External ear/canal- Normal, TM - clear with good landmarks Oropharynx:moist without lesions, No erythema, exudates or tonsillar hypertrophy. Heart: Negative. RRR without obvious murmur, gallop, or rubs. No ectopy. Lungs: clear to auscultation, without rales or wheeze, good air exchange PAST MEDICAL HISTORY Diagnosis Date Abnormal glandular Papanicolaou smear of cervix 10/05/2010 Controlled type 2 diabetes mellitus without complication, without long-term current use of insulin ([facility]) 05/03/2016 Current use of proton pump inhibitor 11/15/2016 Mg checked 01/2017 DUB (dysfunctional uterine bleeding) 01/18/2013 Dyslipidemia 06/05/2014 Elevated LFTs 06/10/2015 Erythrocytosis 03/27/2022 Seen Hematology 09/2018 with neg w/u Essential hypertension with goal blood pressure less than 130/85 04/26/2016 Fatty liver 06/13/2014 Gastroesophageal reflux disease without esophagitis 06/10/2015 Resolved. Generalized anxiety disorder 01/02/2016 Hypomagnesemia 04/02/2019 Large breasts 08/23/2017 Had breast reduction 02/16/2018 Mild intermittent asthma without complication 11/15/2016 Moderate episode of recurrent major depressive disorder (HCC) 11/15/2016 Morbid obesity with body mass index (BMI) of 45.0 to 49.9 in adult ([facility]) 07/13/2017 Muscle spasm 08/23/2017 MVP (mitral valve prolapse) Neck pain on left side 08/23/2017 Obesity (BMI 30-39.9) 07/13/2017 PCOS (polycystic ovarian syndrome) 01/18/2013 PTSD (post-traumatic stress disorder) 01/02/2016 Pulmonary HTN (HCC) Seeing Dr. Campbell Routine gynecological examination Sees Dr. Estrada Seronegative rheumatoid arthritis ([facility]) 07/26/2019 Seeing [facility] Suicidal behavior with attempted self-injury (HCC) 08/19/2020 08/17/2020: overdose on muscle relaxors, Sent to inpatient unit [facility] Suicidal behavior with attempted self-injury (HCC) 08/19/2020 08/17/2020: overdose on muscle relaxors, Sent to inpatient unit [facility] Type 2 diabetes mellitus with hyperglycemia, without long-term current use of insulin (HCC) 05/03/2016 Vitamin D deficiency 02/21/2019 PAST SURGICAL HISTORY Procedure Laterality Date *STRESS TEST PC 02/2015 NL APPENDECTOMY 14y/o open case CARPAL TUNNEL [id number] COLONOSCOPY 02/14/2024 normal colon COLONOSCOPY FLX DX W/COLLJ SPEC WHEN PFRMD 08/05/2015 Colonoscopy out pt [facility] EGD 02/14/2024 ESOPHAGOGASTRODUODENOSCOPY TRANSORAL DIAGNOSTIC 08/05/2015 EGD out pt [facility] HYSTERECTOMY HX LAPAROSCOPY SURG CHOLECYSTECTOMY [id number] Cholecystectomy, lap PAST SURGICAL HISTORY OF 02/2014 right meniscus repair PAST SURGICAL HISTORY OF 01/18/2017 right medial meniscal tear repair PAST SURGICAL HISTORY OF 02/2018 breast reduction surgery PAST SURGICAL HISTORY OF Right meniscus repair ALLERGIES Lamictal [Lamotrigine], Toradol [Ketorolac], Zoloft [Sertraline Hcl], Adhesive, Ibuprofen, Naproxen, Psyllium, Actos [Pioglitazone Hcl], Celexa [Citalopram], Eggs [Egg], Fenofibrate, Lipitor [Atorvastatin], Plaquenil [Hydroxychloroquine], Pravachol [Pravastatin Sodium], and Zocor [Simvastatin] MEDICATIONS dicyclomine (BENTYL) 20 mg tablet Take one tablet by mouth three times daily as needed for abdominal cramping ondansetron (ZOFRAN) 4 mg tablet Take 1 tablet by mouth once daily as needed for nausea/vomiting (for nausea.). JARDIANCE 10 mg tablet Ta (more content not included)... Normal [facility] Progress Noteson 09-30-2024 Drum Sealer Authentication Interface Message Text Teaching Physician Note: I saw and evaluated the patient. I personally obtained the phillip and critical portions of the history and physical exam. I reviewed the resident's documentation and discussed the patient with the resident. I agree with the resident's medical decision making as documented in the resident's note. Chin Lewis DMD, MD Normal [facility] [employer] Progress Noteson 09-25-2024 [employer] Authentication Interface Message Text FS PATIENT VISIT CHIEF COMPLAINT: Toothache HISTORY OF PRESENT ILLNESS: 43 year old Female presents to [facility] clinic from referral source to be evaluated for extraction of tooth # 31. PMH: HTN,HLD,Mitral valve prolapse, SANTOS, Obesity, Severe dental anxiety, DM 2 (Hgba1c 8.5% from 11.9 % one year ago.) Pt reports waxing and waning pain from all teeth mentioned in the referral that limit their ability to chew, function normally, and perform oral hygiene. PAST MEDICAL HISTORY: No past medical history on file. There is no problem list on file for this patient. REVIEW OF SYSTEMS: A 12-point review of systems was completed. Negative unless otherwise stated in HPI. MEDICATIONS: No current outpatient medications on file. No current facility-administered medications for this visit. ALLERGIES: Bleach (skin irritation), Atorvastatin (Myalgia), Simvastatin (Myalgia), egg (GI upset), fenofibrate (GI upset), NSAID's, Hydroxychloroquine, Ketorolac (Difficulty breathing), Naproxen, Lamotrigine, Paper Tape. SURGICAL HX: No past surgical history on file. SOCIAL HX: No Significant findings CLINICAL EXAMINATION Extraoral examination: No significant findings No s/s of infection, redness or tenderness to palpation No facial asymmetry or swelling No appreciable LAD No popping/clicking/crepitus of TMJ b/l No tenderness to palpation of temporalis or masseter asymptomatic function Range of motion WNL CN V and VII intact Intraoral examination: Edentulous maxilla with complete upper denture Erythematous mucosa around dentition with plaque accumulation on mandibular teeth No pathological soft lesions appreciated Oral cancer screen negative Occlusion stable Oral hygiene poor #31 fractured at gumline Mallampati class: II RADIOGRAPHIC INTERPRETATION: [employer] Film sent by referral source on 09/25/2024, and Retained in our clinic files #31 heavily restored DIAGNOSIS: Caries ASSESSMENT: 43 year old Female presents to [facility] clinic from referral source to be evaluated for extraction of tooth # 31. PMH: HTN,HLD,Mitral valve prolapse, SANTOS, Obesity, Severe dental anxiety, DM 2 (Hgba1c 8.5% from 11.9 % one year ago.) Pt reports waxing and waning pain from all teeth mentioned in the referral that limit their ability to chew, function normally, and perform oral hygiene. Reviewed procedure and complications associated with extractions ,including treatment options and no treatment. Opportunity given to ask all desired questions. Pertinent and more common complications of extractions discussed with the patient; pain, swelling, bruising, bleeding, infection (that may require further treatment such as hospitalizations), possible permanent numbness of the tongue, gums, teeth, lip, and chin, injury to adjacent structures (tooth, lip, cheek, jaw bone), damage to adjacent teeth, development of permanent TMJ symptoms/dysfunction, jaw fracture at time of surgery or afterwards, decision to leave root tips behind, displacement of tooth (or portion of) into adjacent spaces (such as sinus, floor of mouth, throat) and the development of sinus symptoms. Complications are not limited to the above and may include others that are less common. 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 Accompanied by: Self Is patient in pain?: Yes (all over joint ) Pain scale (1-10): 4 Allergies adhesive tape (paper tape) Allergy (Verified 09/19/24 10:51) Other ketorolac tromethamine (From Toradol) Allergy (Verified 09/19/24 10:51) Shortness of breath naproxen sodium (From Aleve) Allergy (Verified 09/19/24 10:51) Shortness of breath Penicillins Allergy (Verified 09/19/24 10:51) Rash Medications ???Medication ???Instructions ???Recorded ???Confirmed ???Type gabapentin 600 mg tablet 600 mg PO BID 03/02/21 09/19/24 History prazosin 1 mg capsule 1 mg PO DAILY 03/02/21 09/19/24 History desvenlafaxine succinate 100 mg 100 mg PO DAILY 04/24/23 09/19/24 History tablet,extended release 24 hr blood sugar diagnostic (Accu-Chek #100 ea 05/08/24 09/19/24 Rx Nathalie Plus test strips) blood-glucose meter (Accu-Chek #1 ea 05/08/24 09/19/24 Rx Guide Glucose Meter) lancets (Accu-Chek Fastclix Lancet #100 ea 05/08/24 09/19/24 Rx Drum) mirtazapine 15 mg tablet 15 mg PO QHS 05/08/24 09/19/24 History nadolol 40 mg tablet mg PO 05/08/24 09/19/24 History ondansetron HCl 4 mg tablet 4 mg PO QDAY 05/08/24 09/19/24 History metformin 500 mg tablet,extended 1,000 mg (2 x 500 mg) PO BID #120 06/14/24 09/19/24 Rx release 24 hr tabs dulaglutide 1.5 mg/0.5 mL 1.5 mg (0.5 mL) subcut QWEEK #2 mL 07/04/24 09/19/24 Rx subcutaneous pen injector atorvastatin 10 mg tablet 10 mg PO QHS #30 tabs 08/20/24 09/19/24 Rx empagliflozin 10 mg tablet 10 mg PO DAILY #90 tabs 09/19/24 09/19/24 Rx (Jardiance) prednisone 10 mg tablet See Rx Instructions PO QDAY #11 09/19/24 09/19/24 Rx tabs PFSH Medical History Back problem Kidney stone PCOS (polycystic ovarian syndrome) Rheumatoid arthritis Bursitis of left shoulder MVP (mitral valve prolapse) Celiac disease Lupus Carpal tunnel syndrome Diabetes Pulmonary hypertension Hyperlipidemia Surgical History H/O lateral meniscus repair of right knee History of carpal tunnel surgery Hx of reduction mammoplasty History of hysterectomy Hx of appendectomy Hx of cholecystectomy Family History Mother Autoimmune disease lupus Parkinson disease Hypertension Grandfather Colon cancer Father Hypertension Myocardial infarction, Onset Age: 51 Grandmother Breast cancer Sister Crohn's disease Social History adopted: No household members: family current occupational status: unemployed pets and animals: Yes (2) pets and animals: cat(s) sexually active: No Smoking Status: Former smoker quit date: 11/13/13 pack-years: 15 Tobacco: How many years used: 20 Electronic Cigarette Use: not used alcohol intake: never substance use type: does not use diet: gluten free caffeine: Yes (1) Type: coffee frequency: does not exercise seatbelt use: always do you feel safe at home: Yes HPI HPI Chief Complaint: joint pain Details: LUKASZ DIAZ, is a 43 F who presents to the office today for an acute visit. She has concerns about joint pain. The patient has a history of RA and lupus. She was seeing Dr. Hu in [place] but hasn't seen her in a couple of years. She was previously on methotrexate, which had helped, but was causing liver problems. She reports due to the pandemic, she got lost to follow up. She has an appointment to get re-established in November. She reports that her symptoms started flaring up about 2 months ago. She reports currently, she is taking tylenol. She states it usually helps, but in the last couple of weeks, it has been worse. She reports her low back, hips, knees and both hands seems to be bothering her. She hasn't noticed any joint swelling at all. She describes her pain as a strong ache, rating it 4/10 currently. She reports it can progress as the day goes on, however. She states her pain is similar to her other flares in terms of quality, but she doesn't feel that he (more content not included)... Normal [facility] SURGICAL PATHOLOGYOrdered By : Carter Puri on 02-15-2024 Case Report Surgical Pathology R eport Case: [id number] Authorizing Provider: Louise Espino MD Collected: 02/14/2024 11:13 AM Ordering Location: Ambulatory Surgery Received: 02/14/2024 06:30 PM Pathologist: Carter Puri MD Specimens: A) - DUODENUM BIOPSY B) - STOMACH BIOPSY C) - TERMINAL ILEUM BIOPSY D) - COLON RIGHT BIOPSY E) - COLON LEFT BIOPSY [facility] Work Phone: Diagnosis Comment c6fxyFInDEDhzBXmCIMc NVxhbnN gSCZyxSGhH2UcnvlqMStaUG6rAG 7glOntcKKmnUOiMIOtVkWpf1rcp 114tUQtz8usOGRGzerntGl6wOxr F17vv5I8CzyqZ57mqRUvOVY2ELS iBZJhmXFbYIXdCOA4IFFnqCVwR3 ruKYDzME6jmvubJHuvYRjjIJPhn WJ6XLSgbHQcV5ErMBKdFFozIDXc ypq1BmHdFr2ooFLlzLjuQCjdSNV jETEwARupFHUpLaJxOL99eaNjgU q8wWByrMYrFKi5hMKkt6D3bP9sg IBroGOySEOpc6biQ8wcXTzsaIZm n87tgVKevNBiBkDfnnPcL3ZvAXE eSLBim23wtBA0VUUof3m1qOGaJW iaKBAfWVttGELlEBmmH2p0sQLoN NAmy4nyjEKiiHAjoME5DAFsc72v O1PypGHxJHNAOYYvRSA6t1K5IJC wcnVlIiBhbmQgdHJvcGljYWwgc3 CmeMJoNBDOXkQUlHumzchhX9Hkn MStaDekWHH8CYCev2MwUYHnymCb RFipQeYmqMvsyzWnGOvmC9h8RLj uZyBjeXRvbWVnYWxvdmlydXMpLC JLds7eysfgLULve1Jnp4FnHUAvx XnaK15dUEihJUYne22tADQjP3Gm mazndRTgxqCfO3Gox5BwZQApsS9 0HOLuc2PrUHVuJJ6oxXFkUU1nSJ 8xS7Bkl6WbbIdiWJsxvD1aiS9fa FNcRdSkdsWjP57qfDJnQO4koUAg QTWcgUo1mEZbDOHre53jQK29mGQ qay2nG78boeNvJQQts94di6w7cB GtYMW1lX8jdgFwG0rtwisbOAtvZ X7mMHsnUk0vSXLssocbWkYrsHSd FNUxvUPmp4ScX8EguFJtSzvfIZK 9 [facility] Work Phone: FINAL DIAGNOSIS y1minVIwJDOwrQOvPOJs NVxhbnN iGXRtsUEwC5PbfumaYEhbUT6eGP 3qrMcikDGnjXUuPHAiIfDfy1qtd 642kJUqa2jaVKHEbtxflPf0fPsf O04ku5X2NtqtW18oqJHaRLL5ASW nOTHkuXYhGXLaXNM7NYOjgSMbS7 rsAMKcQX8ajxzkRJxsXYdjOXGti EJ6WEGnzMJjG2ViQMHsMNheJOXv rfl9XqDeZs2apKSbtCpgRIigUMC yQTElPUzsBNDzBqFxRJ5dGDN1n3 DlnzSdNCXliC0dr4j3VRKyyhOwU UT5u1KydfAaHG23F27vTCA7oTTa FQ7ccABcpTH6K5v1LJogJ1NiNTT lIGluIGludHJhZXBpdGhlbGlhbC KkcW4mqJ8urKRtnxJ3vPNoHSfmb QThgYY2sTdhx6LaEDWqJ8oiiFFc oHMvYL3ozXLgRT5xC4BkEQWrwG4 lbnQuICBccGFyXHBhciBCLiAgU3 TqrCZssBteXdbkyIP3NdteTXPnN ENJvyOmSVzjiFsyYQDcPGQ2olcf KU37C73mDGQ9tDNzWHXtKR9fADU ts5TxtUpfKPKfwIIuxTPytBQiIL U9rlc9qSUnPAOqCYP8gQWuIPvzl 3Smf8HexOj7WB6qxCRfHY6kJu6m jKYrrFZfKrHvrDDpHY9yA2LbdRH tcyBpZGVudGlmaWVkLlxwYXJccG RnNKEdGHAFRFZfsQ7ubZVzgIT2m CvfJqcbmIV8MnvsMVHfVMMBwEPz dVNed5pgwSAxbTMso0Tgi7w9zGO jqpKssYUjiz6bxSyzABBjpi8tuE IjgTGlKBAtZNQjdjiwAUZyOK6vG EMdvJ6vBXYuzAuxcShsTkmlzEW3 LdypXDEaRGSDb8ulvzceAS48W54 nRJE4pDIkBC7nGWNmICuxm7N3hB SqKZCqs1OaWZxrrLaijf4nlUWuD AAwuvDMFeNlF62fq03sPMfeIpPf XLJyn6ZwyEkzgZQzBL0yY43fi54 uFtBabZUjx0Lwf0u0tWHealSdpX Wemi4gxJodQFUkem7udLCluJWrU XMuXHBhcn0= [facility] Work Phone: Gross Description q0tluQHkZIDtfNVLONP1 MDJcYW5 fnJeuyMa6oRkjFJHkxzQ4aVNbTI tyo7goXJS7v6xadnCANmryRHKhP E2yIFbqHRGjZP9rTkOiVUEzGzIk XHBhcGVydzEyMjQwXHBhcGVyaDE 1NIXrBJ9zitoeWWanLZifMMLgvb C8NOFzsFJkR5KsYQEuAS6gvumuH FO5DEHQRtnmAr6ibDVfnZvnQyJj TqNdJRRuQENgVVVgl8cxiqHRbre xzNv6pG7MQOShI6PmBB9Iy0ciWT EkgZGdMCY6KZpou5ctCKrkPNG1O GZtEVGuCSHjZL9BQfEpDHM5LLL5 PXv3FkB7YVy3GORUVWSxDYO0OQr jXPIbJHq7ETcqYEejtOGkNRIuQZ UcXDQcBMpkluW0i0fbJCDxpTWxF DI3ILikw1dcGQhhDWC2NJMmGiFk ARLvTL7UYfOvHJC4SRL3SCb7RfD 0VWe9SFYGNeDwYpMzFBLoOiQ8Mm BpFLd3BHm4RFkTItTgEuO0EvCcT FTxHVP3VFE9QETvSOYyXiYvNGAc MCLdRRipyIMmRB2bdCofUFPaNK7 ASYApXUurBXBdXqRwDK0rAMBSRV VTEE0aSdcWENLVCWp7blIvFDMdf mBADjdgFOPiFY7DDNBwGTvqZBl3 csEqRYEtNgHqUQXdK66hl3OOw3T eOJ5KZLq5llHgtlgwGYIcMJEglQ FJs8YdHEYMVcpvrcKvGQUsI1Npf iPfBApmTRMiwa2gbVybXIZtIPB5 a22poKynT4JpAQ3uYKFtplsew54 unPZ3yHIktHTiPKolsrGdYIMyrl cbrT5eRR10ATzyCF4pIVcxJD7pG MUjKsFFc6JjyDt4SEE9Ic0blVUr UQGeyjQvjgClX2Qbz8M8bEOkQHw tMYUeF88sd3SGl3Eau8epaZfmh8 HcxHJyEW9noSZuUZ5Qk8tlFZSms NOeZYI8KLtzu9obHXkmKPA5MGQi UeCaYQGcEJ9MBnVoIII6MLS8UYb 1FqF7KSb4QJJERtWkBuDuTRAnOc C6RrGiHLd4VNo0RWyLTwXbSpQ1S bQyQSA9YbT7PSI9VQTjIIWpVjBq NGYuZZIdTFukqBKyEF1xpRmjPRP yNHVxXNN4CAImzLFRr9DgYEObVO pwTaBuFyQLVmOYEX2HTXLMDDVSL 1BTWVxwYXIgDQpccGFyZCANClxw bGFpblxsdHJjaFxmczIyXGVwaWN TJLM6FU2gKKOENssrxSXwYXLlk6 GiWKqygVizBXPcJvUph9XaXTazj GljWHNhMzAgDQpcZnMyMCBSZWNl nCGzLOUvowUzs6KtDHjbfbJbsjM skBatDNEpRLZnyqPfFoF7PL3ulH 8gdGFuLXBpbmssIHNvZnQgdGlzc 6QoYNFqU0XvN8J1aQ0kAXOhUIYo HFK9NJCfUgL1UEIyZpFkkK0cUS4 6RQuljSXtoVSazXN3XPWlxJ8mp6 3tEJZfx2TxlUJfEz0WWFEimRCTZ KR3SU2jVUyhKUCiX9AkG0GznhB6 OXBzglWMQffgGjutaKdqw7PfrGN cXHNnIFxcaWQgNTEwMDIgXFxkYi OPUaDjBzD7FOe4IsH3XJKxOEx5Q XhsP4YIUWFpMKNfHQQyYUQ8OsY7 GJh9POTFYl5sNCL7VkW3Bzr8HVQ cNBD2KOnwLWn1PSKqHOreruBoUZ cbQchcKTpvP66ajLUvGUmbRzTcW OgctVtaBFEtZNP6HR9ELWBsXrVk Pm1tYCWQDShLAIukZDcRWF7vTxr HJOVCPWBenfDFYvzfYOSyGV4NPA WcWTlrJZb7liLaVFRoXzWtTQFzT 52nm9AGf5KwDA6TPGs3wrCznbrt CkXuAPPkoXQDe8XwAPemNEPhJXQ vyIPJc2AwFYMTHredcuStUCBpT3 LhibJjNQfeJRKrac5huNebDPClH BL5b52icWkhA0HfJT9fMZYbigad e21blVF0bYFabOXkDFgzwwOxTAB ytkkibJ5hAK50EQbfWO1sYLmyXL 8nXJHnDkQIj3YbzYd9ZMX8Kw1wb ZNzWHMpuvGpzsPsG4Yoh6M8dXNa RKqkAIVaE55iw1RYo8Aym3olsGx nk7JswXUtLI7beXZoYN7Wn5eqYG UmbPLrWEH4BNonk5jvZWkzQCD2E FFdTlJdBGOeUP7SSvHcEFS0OZA2 LWj7OnV5RJk0SZVUXvMvYyMxTJX nJlC2AlLhDAk4QWv2ZVuXNeMwOf E0KgBpKJqaQvY6QQH2HBKoROHkQ eSyYHMkBVEhHSxerNUoUD7utZab QFUeNQHpUCL1NJFgpKHPx6JuLFE wKZpyGjVtYyFJDqHIM4jCYzLQUL pNHETKZH8TU8rvaSClKU3FHYTfd gTdJEwhoOtvvC3kdGVaJ8ljNrLf MlxlcGljTmVzdERvYzEgDQpcbHR uqZJiNSKuSfEmHWNaS8xiNvXtDA BeRdBdVMIwC6rwEEXaZO2YQCMdX iXfIjKlSPq9ORScwB0xWz2wuCTb pK1cGZZzSS18nPTdqCsbCDUiACS qykUrNsU3YW7uVCYrMvLysFrum5 AzCJLmX4WvB0T1fP0fJHUiNWSfY HO6WIXpZnF2WBGxDKOehS3lIX89 YAswgEPhuHGnjGA7NIFutK2xl60 cHGGuk7KrpGSdTo2WQHOhaWUHYD D7NH9qXVvmJXOiP5LjY3MvedS6P ALbrkSPTxbiPjxdyVqkg3DwhSGs XHNnIFxcaWQgNTEwMDIgXFxkYiB YIrJfFpG1HMx9VgQ3UCKyLCo6SS pcU3HUDSEyCBRgYIWuQMKaJnY8I Lg2ZMGOSg7eZVR0SwL2Kdh5CISc SFC6BAglLVl0NJBmAKgikiGrIZo vSajrOEuaI92osSBoOWopVcBiMC jukLrsDXOxQTO3VN3YTBAbDzEgW H9oE02LA63xMEYKKPSFFK4YM5jd mRUcJQ7UUXAgqeNkYWsyrNlbrF2 ieNGvL6bbEbMyTcshcVxuBfRbbZ RvYzEgDQpcbHRycGFyXHNiMzBcZ FLmG5fuWcRmKJ0SFTLpVqYgUqNt RTo5BNNcyJ2vMg6qcHOjsS4sEPB yKAE7dgQziLVzODEqp1JdcPKgLQ Qsi9E5HYPvj7R3ZTAgL2qkAVzlb KhjGlB5dvMlDycyyDKwAyNawIEt UdMcQ77pHBDgxQAydMfwq3SxaZj 0tCEsTYbuEJ2aFDUjUPPiETD1TS 8mVIXeaqHMMljhWREsFWc3pqEkq iANClxwYXIgDQpEQiBBcHJpbCAz LFCcTSC6TDk5BlVdUU6oiHUoRA5 KXHBhciANClxzYTMwXGVwaWNYc2 WhOGLMVoeso0PeXLF1YE1uiaZ0j B9mEINrkbNozm8zCWPgpJCNbPD2 DBckjwUzW2jgyyqpQIC2MUAnWDZ 4Y9zvMSFRhxHoBTULwDG7SInvdr TgHG2POIO2JUk0TGkgBJKkO67pi 5KCd3Bgz7rbwTrsu1LzdZRhSD76 TUDorZDyNHY7MH4qsAqfSQEfIJg upQRzYZCJInvfnrMcXX7SbT== [facility] Work Phone: Performing Lab n3ociAZqLIXybIPtWiTz MDAwXGF vs4usOFPyoDLjEsMiVdHqLhHwLi xpiEGlSXMrKyEez1fep803aLJsc 9igHZGmUyG9hGIxRLEsbWWdI757 CDCySLnin3exx8GbJMYmaBWpd8T 3OMOYbkgxlFm1sMlaH11ln0X4Le tvK7eoUOCfGUIvN6NoFZ0hHWDpU nc7UTO9FYL0YWDwWBUmA7XuHB9e RCMmwIIzJDg5v7uwrBglAHMhJCJ 2i6idWPndqiMbBP4gur3tsNw7s3 vievVkBZSbNOAnoSOADDNvA1Vmu OlvDv5ttCv1cLqaQndmJLB9Naz6 GF5bwe82kls8qSqhSTHmopkfBcH 9FKqgEBCpfjchZZd3GFofZIKwdU L7CKRdpWPhP9IjEQFoED8cipe7K XX8LMplYAVpMaI5GRGtrCUgRSRw xHktBBuom767LMQ2YrOwWU1xP0E lk8U2jU7cxHXfNCVefUMsTyIkFP Ujor5bfRBbZVmbb4ClWFP4hjC7z LFuxKFoPBUbLB99Ckhlp6IaCvav b2FbO50qzQB2ISuvy6ehII7sQcI 1emKdTCbzb0gcaG5yZnJ7ANxeXQ 8kZW4bUMQalD0nzkhsHXDrPePsq knaCJJzuEgvxzZyXr1daRlhJIM5 LJduR5vyoA5iLuY9OCtxM3rkkW6 lJSg8YIaxiHF3OCHupU9rCB0wqf xch1xsYQkqMZzdXHYxpqC3gjJ6L ZIzzBTuH6PpxN5qOAItWN6pxpnz f8ftEKP1KQykWJGjHML5UqPjJWQ gy8Pkefe7JnQjh7VzzBOhXSzgI2 4jk378BVBhvrGdM6qpwTFrwupol CLxjqrzMNvwhgS3YFJvZPCcKHid XGYxXGZzMjJcbGFuZzEwMzNcaGl zlEzqCXsqXtPdQVPeZBubS5xlQd CtRoQxLwYOeYYgkw4qaZpcQPska BWoyEDxcAI1pH8iWLAoquXyhp5u HGIvdEZHiDT4MDadphTuD0qgzpg vYVBmKVObj52yWWnjNuN7ZZIeK9 PaEMGcNk5oRQxzOoKpL8u0r85sT SWSDTU5MCGsDiZiJXDMMYhOYqPy TnXdZLs8GAj2AZXlkizgLYQgkBw enP3sZqYhDxSyXwqpCY1nYBQpK6 hgyOQhIGPePAPfS7orFhWfoP4ww FxmMVxjZjJcZnMyMlxsdHJjaCBM OERprfV5y7C8BCwxlWCahiljEJj mayKnYOdcpridDNKxRDzdU4xfBf MdDFGubUksSTcwj3KrYJBcMHVnG lSvCAswFYI2u5U5FKQySDRfqAIN zRR0URULQrYfFCVzqq3= [facility] Work Phone: [facility] Work Phone: EGD Study observation Narrat kaushal 02-14-2024 [facility] Patient Name: Lukasz Diaz Procedure Date: 02/14/2024 11:06 AM Date of : 1980 Admit Type: Outpatient Age: 43 Room: [place] [address] Gender: Female Note Status: Finalized Attending MD: Louise Espino MD, [id number] Procedure: Upper GI endoscopy Indications: Diarrhea Providers: Louise Espino MD Patient Profile: Refer to note in patient chart for documentation of history and physical. Referring Physician: Louise Espino MD (Referring MD) Medicines: Monitored Anesthesia Care Complications: No immediate complications. Estimated blood loss: Minimal. Requesting Provider: Procedure: Pre-Anesthesia Assessment: - Prior to the procedure, a History and Physical was performed, and patient medications and allergies were reviewed. The patient's tolerance of previous anesthesia was also reviewed. The risks and benefits of the procedure and the sedation options and risks were discussed with the patient. All questions were answered, and informed consent was obtained. Prior Anticoagulants: The patient has taken no anticoagulant or antiplatelet agents. ASA Grade Assessment: See anesthesia record. After reviewing the risks and benefits, the patient was deemed in satisfactory condition to undergo the procedure. After obtaining informed consent, the endoscope was passed under direct vision. Throughout the procedure, the patient's blood pressure, pulse, and oxygen saturations were monitored continuously. The Colonoscope was introduced through the mouth, and advanced to the second part of duodenum. I was present and participated during the entire procedure, including non-phillip portions, and during the administration and monitoring of Moderate Sedation. The upper GI endoscopy was accomplished without difficulty. The patient tolerated the procedure well. Moderate Sedation: MAC anesthesia was administered by the anesthesia team. Findings: The Z-line was irregular and was found 40 cm from the incisors. The examined esophagus was normal. The entire examined stomach was normal. Except some funding gland [email or web address], Biopsies were taken with a cold forceps for histology. The examined duodenum was normal. Biopsies for histology were taken with a cold forceps for evaluation of celiac disease. Impression: - Z-line irregular, 40 cm from the incisors. - Normal esophagus. - Normal stomach. Biopsied. - Normal examined duodenum. Biopsied. Recommendation: - Patient has a contact number available for emergencies. The signs and symptoms of potential delayed complications were discussed with the patient. Return to normal activities tomorrow. Written discharge instructions were provided to the patient. - Resume previous diet. - Continue present medications. - Await pathology results. Procedure Code(s): --- Professional --- 01324, Esophagogastroduodenoscopy, flexible, transoral; with biopsy, single or multiple CPT copyright 2020 [employer]. All rights reserved. The codes documented in this report are preliminary and upon hims coder review may be revised to meet current compliance requirements. Attending Participation: I was present and participated during the entire procedure from insertion to removal of the endoscope. Scope In: 11:12:27 AM Scope Out: 11:15:34 AM MD Louise Ortiz MD 02/14/2024 11:17:26 AM This report has been signed electronically by Louise Espino MD Number of Addenda: 0 Note Initiated On: 02/14/2024 11:06 AM Estimated Blood Loss: Estimated blood loss was minimal. [facility] Radiology Study observation (narrative) [facility] Flexible sigmoidoscopy study on 02-14-2024 [facility] Patient Name: Lukasz Diaz Procedure Date: 02/14/2024 11:06 AM Date of : 1980 Admit Type: Outpatient Age: 43 Room: [place] [address] Gender: Female Note Status: Finalized Attending MD: Louise Espino MD, [id number] Procedure: Colonoscopy Indications: Chronic diarrhea Providers: Louise Espino MD Patient Profile: Refer to note in patient chart for documentation of history and physical. Last Colonoscopy: none. The patient's first colonoscopy is today. Referring Physician: Louise Espino MD (Referring MD) Medicines: Monitored Anesthesia Care Complications: No immediate complications. Requesting Provider: Procedure: Pre-Anesthesia Assessment: - Prior to the procedure, a History and Physical was performed, and patient medications and allergies were reviewed. The patient's tolerance of previous anesthesia was also reviewed. The risks and benefits of the procedure and the sedation options and risks were discussed with the patient. All questions were answered, and informed consent was obtained. Prior Anticoagulants: The patient has taken no anticoagulant or antiplatelet agents. ASA Grade Assessment: See anesthesia record. After reviewing the risks and benefits, the patient was deemed in satisfactory condition to undergo the procedure. After I obtained informed consent, the scope was passed under direct vision. Throughout the procedure, the patient's blood pressure, pulse, and oxygen saturations were monitored continuously. The Colonoscope was introduced through the anus and advanced to the terminal ileum. I was present and participated during the entire procedure, including non-phillip portions, and during the administration and monitoring of Moderate Sedation. The colonoscopy was performed without difficulty. The patient tolerated the procedure well. The quality of the bowel preparation was excellent. The ileocecal valve, appendiceal orifice, and rectum were photographed. Moderate Sedation: MAC anesthesia was administered by the anesthesia team. Findings: The perianal and digital rectal examinations were normal. The colon (entire examined portion) appeared normal. Biopsies for histology were taken with a cold forceps from the right colon and left colon for evaluation of microscopic colitis. The terminal ileum appeared normal. Biopsies were taken with a cold forceps for histology. Impression: - The entire examined colon is normal. Biopsied. - The examined portion of the ileum was normal. Biopsied. Recommendation: - Patient has a contact number available for emergencies. The signs and symptoms of potential delayed complications were discussed with the patient. Return to normal activities tomorrow. Written discharge instructions were provided to the patient. - Resume previous diet. - Continue present medications. - Repeat colonoscopy in 10 years for screening purposes. - Return to referring physician as previously scheduled. - Await pathology results. Procedure Code(s): --- Professional --- 88695, Colonoscopy, flexible; with biopsy, single or multiple CPT copyright 2020 [employer]. All rights reserved. The codes documented in this report are preliminary and upon hims coder review may be revised to meet current compliance requirements. Attending Participation: I personally performed the entire procedure. Scope In: 11:19:28 AM Scope Out: 11:28:02 AM MD Louise Ortiz MD 02/14/2024 11:33:33 AM This report has been signed electronically by Louise Espino MD Number of Addenda: 0 Not (more content not included)... [facility] Radiology Study observation (narrative) [facility] CT ABD/PEL W IVCONon 023 [facility] XR Abdomen GE 3 Views AP and Oblique and [place] 09-06-2023 IMPRESSION: Nonobstr uctive bowel gas pattern. Chef Manager: RICHARD Transcribe Date/Time: Sep 06 2023 4:17P Dictated by : YANDY VEGA MD This examination was interpreted and the report reviewed and electronically signed by: YANDY VEGA MD on Sep 06 2023 4:18PM [facility] DIVISION OF RADIOLOGY * * *Final Report* * * DATE OF EXAM: Sep 04 2023 5:52PM WOX [id number] - XR ABDOMEN 3V KUB W/OBLIQUES / PROCEDURE REASON: multiple diagnoses * * * * Physician Interpretation * * * * EXAM TITLE: XR ABDOMEN 3V KUB W/OBLIQUES EXAM DATE/TIME: 09/04/2023 5:52 PM COMPARISON: None. CLINICAL INDICATION/HISTORY: Epigastric pain and bloating. TECHNIQUE: AP and oblique views of the abdomen are presented. FINDINGS: No abnormally dilated bowel loops identified. Small amount of stool and gas seen in the large bowel loops. There are tiny phleboliths in the pelvis. The spine shows degenerative changes. DIVISION OF RADIOLOGY Provider, [facility] - 09/06/2023 * * *Final Report* * * DATE OF EXAM: Sep 04 2023 5:52PM WOX [id number] - XR ABDOMEN 3V KUB W/OBLIQUES / PROCEDURE REASON: multiple diagnoses * * * * Physician Interpretation * * * * EXAM TITLE: XR ABDOMEN 3V KUB W/OBLIQUES EXAM DATE/TIME: 09/04/2023 5:52 PM COMPARISON: None. CLINICAL INDICATION/HISTORY: Epigastric pain and bloating. TECHNIQUE: AP and oblique views of the abdomen are presented. FINDINGS: No abnormally dilated bowel loops identified. Small amount of stool and gas seen in the large bowel loops. There are tiny phleboliths in the pelvis. The spine shows degenerative changes. IMPRESSION IMPRESSION: Nonobstructive bowel gas pattern. Chef Manager: PSCB Transcribe Date/Time: Sep 06 2023 4:17P Dictated by : YANDY VEGA MD This examination was interpreted and the report reviewed and electronically signed by: YANDY VEGA MD on Sep 06 2023 4:18PM EST [facility] XR Abdomen GE 3 Views AP and Oblique and ConeOrdered By: [facility] Provider on 09-06-2023 [facility] XR Abdomen GE 3 Views AP and Oblique and [place] 09-04-2023 Radiology Study observation (narrative) [facility] CBC W Auto Differential pane l (Bld)on 08-31-2023 Basophils (Bld) [#/Vol] 0.06 10*3/uL <0.11 k/uL [facility] Basophils/100 WBC (Bld) 0.5 % [facility] Differential cell count method Nom (Bld) Auto [facility] Eosinophils (Bld) [#/Vol] 0.09 10*3/uL <0.46 k/uL [facility] Eosinophils/100 WBC (Bld) 0.8 % [facility] Erythrocyte distribution width (RBC) [Ratio] 11.9 % 11.5 - 15.0 % [facility] Hematocrit (Bld) [Volume fraction] 48.8 % High 36.0 - 46.0 % [facility] Hemoglobin (Bld) [Mass/Vol] 16.5 g/dL High 11.5 - 15.5 g/dL [facility] Immature granulocytes (Bld) [#/Vol] 0.04 10*3/uL <0.10 k/uL [facility] Immature granulocytes/100 WBC (Bld) 0.4 % [facility] Lymphocytes (Bld) [#/Vol] 3.14 10*3/uL 1.00 - 4.00 k/uL [facility] Lymphocytes/100 WBC (Bld) 28.1 % [facility] MCH (RBC) [Entitic mass] 30.2 pg 26.0 - 34.0 pg [facility] MCHC (RBC) [Mass/Vol] 33.8 g/dL 30.5 - 36.0 g/dL [facility] MCV (RBC) [Entitic vol] 89.2 fL 80.0 - 100.0 fL [facility] Monocytes (Bld) [#/Vol] 0.86 10*3/uL <0.87 k/uL [facility] Monocytes/100 WBC (Bld) 7.7 % [facility] Neutrophils (Bld) [#/Vol] 6.99 10*3/uL 1.45 - 7.50 k/uL [facility] Neutrophils/100 WBC (Bld) 62.5 % [facility] Nucleated RBC (Bld) [#/Vol] <0.01 k/uL [facility] Nucleated RBC/100 WBC (Bld) [Ratio] 0.0 /100 WBC [facility] Platelet mean volume (Bld) [Entitic vol] 12.4 fL 9.0 - 12.7 fL [facility] Platelets (Bld) [#/Vol] 261 10*3/uL 150 - 400 k/uL [facility] RBC (Bld) [#/Vol] 5.47 10*6/uL High 3.90 - 5.20 m/uL [facility] WBC (Bld) [#/Vol] 11.18 10*3/uL High 3.70 - 11.00 k/uL [facility] No Panel Informationon 08-31 [facility] CBC W Auto Differential pane l (Bld)on 08-28-2023 Basophils (Bld) [#/Vol] 0.07 10*3/uL <0.11 k/uL [facility] Basophils/100 WBC (Bld) 0.6 % [facility] Differential cell count method Nom (Bld) Auto [facility] Eosinophils (Bld) [#/Vol] 0.14 10*3/uL <0.46 k/uL [facility] Eosinophils/100 WBC (Bld) 1.1 % [facility] Erythrocyte distribution width (RBC) [Ratio] 12.1 % 11.5 - 15.0 % [facility] Hematocrit (Bld) [Volume fraction] 45.9 % 36.0 - 46.0 % [facility] Hemoglobin (Bld) [Mass/Vol] 16.1 g/dL High 11.5 - 15.5 g/dL [facility] Immature granulocytes (Bld) [#/Vol] 0.05 10*3/uL <0.10 k/uL [facility] Immature granulocytes/100 WBC (Bld) 0.4 % [facility] Lymphocytes (Bld) [#/Vol] 3.07 10*3/uL 1.00 - 4.00 k/uL [facility] Lymphocytes/100 WBC (Bld) 24.8 % [facility] MCH (RBC) [Entitic mass] 30.0 pg 26.0 - 34.0 pg [facility] MCHC (RBC) [Mass/Vol] 35.1 g/dL 30.5 - 36.0 g/dL [facility] MCV (RBC) [Entitic vol] 85.6 fL 80.0 - 100.0 fL [facility] Monocytes (Bld) [#/Vol] 1.02 10*3/uL High <0.87 k/uL [facility] Monocytes/100 WBC (Bld) 8.2 % [facility] Neutrophils (Bld) [#/Vol] 8.05 10*3/uL High 1.45 - 7.50 k/uL [facility] Neutrophils/100 WBC (Bld) 64.9 % [facility] Nucleated RBC (Bld) [#/Vol] <0.01 k/uL [facility] Nucleated RBC/100 WBC (Bld) [Ratio] 0.0 /100 WBC [facility] Platelet mean volume (Bld) [Entitic vol] 11.9 fL 9.0 - 12.7 fL [facility] Platelets (Bld) [#/Vol] 271 10*3/uL 150 - 400 k/uL [facility] RBC (Bld) [#/Vol] 5.36 10*6/uL High 3.90 - 5.20 m/uL [facility] WBC (Bld) [#/Vol] 12.40 10*3/uL High 3.70 - 11.00 k/uL [facility] Comprehensive metabolic 2000 panelon 08-28-2023 Albumin [Mass/Vol] 4.0 g/dL 3.9 - 4.9 g/dL [facility] ALP [Catalytic activity/Vol] 101 U/L 34 - 123 U/L [facility] ALT [Catalytic activity/Vol] 54 U/L High 7 - 38 U/L [facility] Anion gap [Moles/Vol] 12 mmol/L 9 - 18 mmol/L [facility] AST [Catalytic activity/Vol] 51 U/L High 13 - 35 U/L [facility] Bilirubin [Mass/Vol] 0.4 mg/dL 0.2 - 1 .3 mg/dL [facility] Calcium [Mass/Vol] 9.0 mg/dL 8.5 - 10. 2 mg/dL [facility] Chloride [Moles/Vol] 97 mmol/L 97 - 10 5 mmol/L [facility] CO2 [Moles/Vol] 23 mmol/L 22 - 30 mmol/L [facility] Creatinine [Mass/Vol] 0.43 mg/dL Low 0.58 - 0.96 mg/dL [facility] Estimated Glomerular Filtration Rate 126 mL/min/1.73m >=60 mL/min/1.7 3m [facility] Glucose [Mass/Vol] 410 mg/dL High 74 - 99 mg/dL [facility] Potassium [Moles/Vol] 3.8 mmol/L 3.7 - 5.1 mmol/L [facility] Protein [Mass/Vol] 6.9 g/dL 6.3 - 8.0 g/dL [facility] Sodium [Moles/Vol] 132 mmol/L Low 136 - 144 mmol/L [facility] Urea nitrogen [Mass/Vol] 7 mg/dL 7 - 21 mg/dL [facility] Laboratory - Chemistry and C hemistry - challengeOrdered By: Dr. Mandujano on 01-27-2023 Natriuretic peptide B (Bld) [Mass/Vol] 8.7 pg/mL 0-100 [facility] No Panel InformationOrdered By: Dr. Mandujano on 01-27-2023 D-Dimer Quantitative (PE/DVT) 0.27 FEU/ug/m 0.27-0.49 [facility] Comment on above: NORMAL D-Dimer level (<0.50) indicates no DVT or PE. .Auto Diffon 01-20-2023 Basophil, Absolute 0.1 10 3/mcL Normal 0.0-0.2 Replaced by [facility] [place] Comment on above: Performed By: #### A SATISH, ADIFF, GFR, MDW, CMP, TROPHS, CBC #### [address] [address] Basophils/100 WBC (Bld) 0.8 % Normal 0.0-2.5 [facility] ([place]) Comment on above: Performed By: #### A SATISH, ADIFF, GFR, MDW, CMP, TROPHS, CBC #### [address] [address] Eosinophil, Absolute 0.1 10 3/mcL Normal 0.0-0.4 [facility] ([place]) Comment on above: Performed By: #### A SATISH, ADIFF, GFR, MDW, CMP, TROPHS, CBC #### [address] [address] Eosinophils/100 WBC (Bld) 1.0 % Normal 0.0-7.0 [facility] ([place]) Comment on above: Performed By: #### A SATISH, ADIFF, GFR, MDW, CMP, TROPHS, CBC #### [address] [address] Lymphocyte, Absolute 2.7 10 3/mcL Normal 0.8-3.9 [facility] ([place]) Comment on above: Performed By: #### A SATISH, ADIFF, GFR, MDW, CMP, TROPHS, CBC #### [address] [address] Lymphocytes/100 WBC (Bld) 23.1 % Normal 10.0-50.0 [facility] ([place]) Comment on above: Performed By: #### A SATISH, ADIFF, GFR, MDW, CMP, TROPHS, CBC #### [address] [address] Monocyte, Absolute 1.0 10 3/mcL Normal 0.2-1.0 Replaced by [facility] ([place] Comment on above: Performed By: #### A SATISH, ADIFF, GFR, MDW, CMP, TROPHS, CBC #### [address] [address] Monocytes/100 WBC (Bld) 8.1 % Normal 1.7-13.0 [facility] ([place]) Comment on above: Performed By: #### A SATISH, ADIFF, GFR, MDW, CMP, TROPHS, CBC #### [address] [address] Neutrophils/100 WBC (Bld) 67.0 % Normal 37.0-80.0 [facility] ([place]) Comment on above: Performed By: #### A SATISH, ADIFF, GFR, MDW, CMP, TROPHS, CBC #### [address] [address] .GFRon 01-20-2023 GFR 114 ml/min/1.73sqm Normal [facility] ([place]) Comment on above: Result Comment: GFR Population mean for , Non- Americans Ages 20-29 = 116 mL/min/1.73 sq.m. Ages 30-39 = 107 mL/min/1.73 sq.m. Ages 40-49 = 99 mL/min/1.73 sq.m. Ages 50-59 = 93 mL/min/1.73 sq.m. Ages 60-69 = 85 mL/min/1.73 sq.m. Ages 70+ = 75 mL/min/1.73 sq.m. Chronic Kidney Disease: Less than 60 mL/min/1.73 square meters End Stage Renal Disease: Less than 15 mL/min/1.73 square meters Performed By: #### U LISA, UA #### [address] [address] GFR Non- 94 ml/min/1.73sqm Normal [facility] ([place]) Comment on above: Result Comment: GFR Population mean for , Non- Americans Ages 20-29 = 116 mL/min/1.73 sq.m. Ages 30-39 = 107 mL/min/1.73 sq.m. Ages 40-49 = 99 mL/min/1.73 sq.m. Ages 50-59 = 93 mL/min/1.73 sq.m. Ages 60-69 = 85 mL/min/1.73 sq.m. Ages 70+ = 75 mL/min/1.73 sq.m. Chronic Kidney Disease: Less than 60 mL/min/1.73 square meters End Stage Renal Disease: Less than 15 mL/min/1.73 square meters Performed By: #### U AMICAO, UA #### [place] [address] .MDWon 01-20-2023 Monocyte Distribution Width 20.41 High 0.00-20.00 [facility] ([place]) Comment on above: Result Comment: For adults in ED, MDW>20.0 may be associated with a higher risk of sepsis during the first 12hrs of hospital admission Performed By: #### A SATISH, ADIFF, GFR, MDW, CMP, TROPHS, CBC #### [place] [address] .NEUABSon 01-20-2023 Neutrophil, Absolute 7.9 10 3/mcL High 2.9-6.2 [facility] ([place]) Comment on above: Performed By: #### A SATISH, ADIFF, GFR, MDW, CMP, TROPHS, CBC #### [place] [address] .Urinalysis Microscopic (AO) on 01-20-2023 UA Bacteria Trace Abnormal [facility] ([place]) Comment on above: Performed By: #### U AMICAO, UA #### [place] [address] UA RBC 0-5 Abnormal None Seen [facility] ([place]) Comment on above: Performed By: #### U AMICAO, UA #### [place] [address] UA Squam Epithelial LOADED Abnormal None Seen [facility] ([place]) Comment on above: Performed By: #### U AMICAO, UA #### [place] [address] UA WBC 0-5 Abnormal None Seen [facility] ([place] Comment on above: Performed By: #### U AMICAO, UA #### [place] [address] UA Yeast Trace Abnormal [facility] ([place]) Comment on above: Performed By: #### U AMICAO, UA #### [address] [address] CBCon 01-20-2023 Erythrocyte distribution width (RBC) [Ratio] 13.2 % Normal 11.5-14.5 [facility] ([place]) Comment on above: Performed By: #### A SATISH, ADIFF, GFR, MDW, CMP, TROPHS, CBC #### [place] [id number] Hematocrit (Bld) [Volume fraction] 48.3 % High 37.0-47.0 [facility] ([place]) Comment on above: Performed By: #### A SATISH, ADIFF, GFR, MDW, CMP, TROPHS, CBC #### [place] [phone] Hgb 16.4 G/dL High 12.0-16.0 [facility] ([place]) Comment on above: Performed By: #### A SATISH, ADIFF, GFR, MDW, CMP, TROPHS, CBC #### [address] [address] MCH (RBC) [Entitic mass] 29.7 pg Normal 27.0-31.2 [facility] ([place]) Comment on above: Performed By: #### A SATISH, ADIFF, GFR, MDW, CMP, TROPHS, CBC #### [address] [address] MCHC 33.9 G/dL Normal 33.0-37.0 [facility] ([place] Comment on above: Performed By: #### A SATISH, ADIFF, GFR, MDW, CMP, TROPHS, CBC #### [address] [address] MCV (RBC) [Entitic vol] 87.5 fL Normal 80.0-94.0 [facility] ([place]) Comment on above: Performed By: #### A SATISH, ADIFF, GFR, MDW, CMP, TROPHS, CBC #### [place] [phone] Platelet 262 10 3/mcL Normal 130-400 [facility] ([place]) Comment on above: Performed By: #### A SATISH, ADIFF, GFR, MDW, CMP, TROPHS, CBC #### [address] [address] Platelet mean volume (Bld) [Entitic vol] 9.8 fL Normal 7.4-10.4 [facility] ([place]) Comment on above: Performed By: #### A SATISH, ADIFF, GFR, MDW, CMP, TROPHS, CBC #### [address] [address] RBC 5.51 10 6/mcL High 4.20-5.40 [facility] ([place]) Comment on above: Performed By: #### A SATISH, ADIFF, GFR, MDW, CMP, TROPHS, CBC #### [address] [address] WBC 11.9 10 3/mcL High 4.6-10.8 [facility] ([place]) Comment on above: Performed By: #### A SATISH, ADIFF, GFR, MDW, CMP, TROPHS, CBC #### [address] [address] CMPon 01-20-2023 Albumin Level 3.9 G/dL Normal 3.5-5.0 [facility] ([place]) Comment on above: Performed By: #### A SATISH, ADIFF, GFR, MDW, CMP, TROPHS, CBC #### [address] [address] Albumin/Globulin [Mass ratio] 1.0 {ratio} Low 1.1-2.5 [facility] ([place]) Comment on above: Performed By: #### A SATISH, ADIFF, GFR, MDW, CMP, TROPHS, CBC #### [address] [address] ALP [Catalytic activity/Vol] 137 U/L High 40-135 [facility] ([place]) Comment on above: Performed By: #### A SATISH, ADIFF, GFR, MDW, CMP, TROPHS, CBC #### [address] [address] ALT [Catalytic activity/Vol] 105 U/L High 14-59 [facility] ([place]) Comment on above: Performed By: #### A SATISH, ADIFF, GFR, MDW, CMP, TROPHS, CBC #### [address] [address] AST [Catalytic activity/Vol] 98 U/L High 10-40 [facility] ([place]) Comment on above: Performed By: #### A SATISH, ADIFF, GFR, MDW, CMP, TROPHS, CBC #### [address] [address] Bili Total 0.6 mg/dL Normal 0.2-1.0 [facility] ([place]) Comment on above: Result Comment: Use of this assay is not recommended for patients undergoing treatment with eltrombopag due to the potential for falsely elevated results. Performed By: #### A SATISH, ADIFF, GFR, MDW, CMP, TROPHS, CBC #### [address] [address] BUN/Creatinine Ratio 10 ratio Normal 7-27 Replaced by [facility] ([place] Comment on above: Performed By: #### A SATISH, ADIFF, GFR, MDW, CMP, TROPHS, CBC #### [address] [address] Calcium [Mass/Vol] 9.3 mg/dL Normal 8.4-10.2 [facility] ([place]) Comment on above: Performed By: #### A SATISH, ADIFF, GFR, MDW, CMP, TROPHS, CBC #### [address] [address] Chloride [Moles/Vol] 95 mmol/L Low 98-107 Replaced by [facility] ([place] Comment on above: Performed By: #### A SATISH, ADIFF, GFR, MDW, CMP, TROPHS, CBC #### [address] [address] CO2 [Moles/Vol] 26 mmol/L Normal 22-29 [facility] ([place]) Comment on above: Performed By: #### A SATISH, ADIFF, GFR, MDW, CMP, TROPHS, CBC #### [address] [address] Creatinine [Mass/Vol] 0.69 mg/dL Normal 0.55-1.02 [facility] ([place]) Comment on above: Performed By: #### A SATISH, ADIFF, GFR, MDW, CMP, TROPHS, CBC #### [address] [address] Electrolyte Balance 11.0 mEq/L Normal 4.0-15.0 [facility] ([place]) Comment on above: Performed By: #### A SATISH, ADIFF, GFR, MDW, CMP, TROPHS, CBC #### [address] [address] Globulin 4.1 G/dL Normal [facility] ([place]) Comment on above: Performed By: #### A SATISH, ADIFF, GFR, MDW, CMP, TROPHS, CBC #### [address] [address] Glucose [Mass/Vol] 445 mg/dL Critically abnormal 70-105 [facility] ([place]) Comment on above: Performed By: #### A SATISH, ADIFF, GFR, MDW, CMP, TROPHS, CBC #### [address] [address] Potassium [Moles/Vol] 4.6 mmol/L Normal 3.5-5.1 [facility] ([place]) Comment on above: Performed By: #### A SATISH, ADIFF, GFR, MDW, CMP, TROPHS, CBC #### [address] [address] Sodium [Moles/Vol] 132 mmol/L Low 136-145 [facility] ([place]) Comment on above: Performed By: #### A SATISH, ADIFF, GFR, MDW, CMP, TROPHS, CBC #### [address] [address] Total Protein 8.0 G/dL Normal 6.4-8.2 [facility] ([place]) Comment on above: Performed By: #### A DAVID COVARRUBIAS, GFR, MDW, CMP, TROPHS, CBC #### [place] [address] [place], [place] [address] Urea nitrogen [Mass/Vol] 7 mg/dL Normal 7-18 [facility] ([place]) Comment on above: Performed By: #### A SATISH, DAVID, GFR, MDW, CMP, TROPHS, CBC #### [place] [address] [place], [place] [address] DIMERon 01-20-2023 D-Dimer <200 Normal 0-230 [facility] ([place]) Comment on above: Result Comment: The result of the D-Dimer test should be evaluated in the context of all the clinical and laboratory data available. In those instances where the laboratory result does not agree with the clinical evaluation, additional tests should be performed accordingly. If the D-Dimer result is used to exclude DVT or PE, the recommended cutoff value is less than 230 ng/mL. The D-Dimer result should not be used alone to rule in DVT/PE, but should be used in conjunction with a clinical pretest probability (PTP)assessment model to exclude venous thromboembolism (VTE) in outpatients suspected of deep venous thrombosis (DVT) and pulmonary embolism (PE). Performed By: #### A SATISH, DAVID, GFR, MDW, CMP, TROPHS, CBC #### [place] [address] [place], [place] [address] LABORATORYOrdered By: SYSTEM SYSTEM on 01-20-2023 Albumin BCP dye [Mass/Vol] 3.9 G/dL Invalid Interpretation Code 3.5 - 5.0 G/dL AO ADM SS Albumin/Globulin [Mass ratio] 1.0 {ratio} Invalid Interpretation Code 1.1 - 2.5 ratio AO ADM SS ALP [Catalytic activity/Vol] 137 U/L Invalid Interpretation Code 40 - 135 U/L AO ADM SS ALT With P-5'-P [Catalytic activity/Vol] 105 U/L Invalid Interpretation Code 14 - 59 U/L AO ADM SS AST With P-5'-P [Catalytic activity/Vol] 98 U/L Invalid Interpretation Code 10 - 40 U/L AO ADM SS Bilirubin [Mass/Vol] 0.6 mg/dL Invalid Interpretation Code 0.2 - 1.0 mg/dL AO ADM SS Calcium [Mass/Vol] 9.3 mg/dL Invalid Interpretation Code 8.4 - 10.2 mg/dL AO ADM SS Chloride [Moles/Vol] 95 mmol/L Invalid Interpretation Code 98 - 107 mmol/L AO ADM SS CO2 [Moles/Vol] 26 mmol/L Invalid Interpretation Code 22 - 29 mmol/L AO ADM SS Creatinine [Mass/Vol] 0.69 mg/dL Invalid Interpretation Code 0.55 - 1.02 mg/dL AO ADM SS Electrolyte Balance 11.0 mEq/L Invalid Interpretation Code 4.0 - 15.0 mEq/L AO ADM SS GFR 114 ml/min/1.73sqm Invalid Interpretation Code AO Chemistry S GFR Non- 94 ml/min/1.73sqm Invalid Interpretation Code AO Chemistry S Globulin 4.1 G/dL Invalid Interpretation Code AO ADM SS Glucose [Mass/Vol] 445 mg/dL Invalid Interpretation Code 70 - 105 mg/dL AO ADM SS Comment on above: Result Comment: Crit ical [facility] Potassium [Moles/Vol] 4.6 mmol/L Invalid Interpretation Code 3.5 - 5.1 mmol/L AO ADM SS Protein [Mass/Vol] 8.0 G/dL Invalid Interpretation Code 6.4 - 8.2 G/dL AO ADM SS Sodium [Moles/Vol] 132 mmol/L Invalid Interpretation Code 136 - 145 mmol/L AO ADM SS Troponin I.cardiac DL <= 0.01 ng/mL [Mass/Vol] 4.2 ng/L Invalid Interpretation Code 0.0 - 51.4 ng/L AO ADM SS Urea nitrogen [Mass/Vol] 7 mg/dL Invalid Interpretation Code 7 - 18 mg/dL AO ADM SS Urea nitrogen/Creatinine [Mass ratio] 10 ratio Invalid Interpretation Code 7 - 27 ratio AO ADM SS LABORATORYOrdered By: Zach El on 01-20-2023 Appearance (U) Cloudy *ABN* (01/20/23 5:52 PM) Invalid Interpretation Code Clear AO Auto Urine SS Bacteria LM.HPF (Urine sed) [#/Area] Trace /HPF Invalid Interpretation Code AO Auto Urine SS Basophil, Absolute 0.1 103/mcL Invalid Interpretation Code 0.0 - 0.2 10^3/mcL AO Workflow SS Basophils/100 WBC (Bld) 0.8 % Invalid Interpretation Code 0.0 - 2.5 % AO Workflow SS Bilirubin Ql (U) Negative (01/20/23 5:52 PM) Invalid Interpretation Code Negative AO Auto Urine SS Color (U) Yellow (01/20/23 5:52 PM) Invalid Interpretation Code AO Auto Urine SS Eosinophil, Absolute 0.1 103/mcL Invalid Interpretation Code 0.0 - 0.4 10^3/mcL AO Workflow SS Eosinophils/100 WBC (Bld) 1.0 % Invalid Interpretation Code 0.0 - 7.0 % AO Workflow SS Erythrocyte distribution width (RBC) [Ratio] 13.2 % Invalid Interpretation Code 11.5 - 14.5 % AO Workflow SS Fibrin D-dimer DDU (PPP) [Mass/Vol] ng/mL D-DU Invalid Interpretation Code 0 - 230 ng/mL D-DU AO [facility] SS Glucose Test strip (U) [Mass/Vol] 500 mg/dL Invalid Interpretation Code Negativemg /dL AO Auto Urine SS Hematocrit (Bld) [Volume fraction] 48.3 % Invalid Interpretation Code 37.0 - 47.0 % AO Workflow SS Hemoglobin (Bld) [Mass/Vol] 16.4 G/dL Invalid Interpretation Code 12.0 - 16.0 G/dL AO Workflow SS Hemoglobin Auto test strip (U) [Mass/Vol] Negative (01/20/23 5:52 PM) Invalid Interpretation Code Negative AO Auto Urine SS Ketones Ql (U) Negative Invalid Interpretation Code Negativemg /dL AO Auto Urine SS Lymphocyte, Absolute 2.7 103/mcL Invalid Interpretation Code 0.8 - 3.9 10^3/mcL AO Workflow SS Lymphocytes/100 WBC (Bld) 23.1 % Invalid Interpretation Code 10.0 - 50.0 % AO Workflow SS MCH (RBC) [Entitic mass] 29.7 pg Invalid Interpretation Code 27.0 - 31.2 pg AO Workflow SS MCHC 33.9 G/dL Invalid Interpretation Code 33.0 - 37.0 G/dL AO Workflow SS MCV (RBC) [Entitic vol] 87.5 fL Invalid Interpretation Code 80.0 - 94.0 fL AO Workflow SS Monocyte distribution width Auto (Bld) [Entitic vol] 20.41 Invalid Interpretation Code 0.00 - 20.00 AO Workflow SS Comment on above: Result Comment: For adults in ED, MDW>20.0 may be associated with a higher risk of sepsis during the first 12hrs of hospital admission Monocyte, Absolute 1.0 103/mcL Invalid Interpretation Code 0.2 - 1.0 10^3/mcL AO Workflow SS Monocytes/100 WBC (Bld) 8.1 % Invalid Interpretation Code 1.7 - 13.0 % AO Workflow SS Neutrophil, Absolute 7.9 103/mcL Invalid Interpretation Code 2.9 - 6.2 10^3/mcL AO Workflow SS Neutrophils/100 WBC (Bld) 67.0 % Invalid Interpretation Code 37.0 - 80.0 % AO Workflow SS Platelet mean volume (Bld) [Entitic vol] 9.8 fL Invalid Interpretation Code 7.4 - 10.4 fL AO Workflow SS Platelets (Bld) [#/Vol] 262 103/mcL Invalid Interpretation Code 130 - 400 10^3/mcL AO Workflow SS RBC (Bld) [#/Vol] 5.51 106/mcL Invalid Interpretation Code 4.20 - 5.40 10^6/mcL AO Workflow SS UA Leuk Est Negative (01/20/23 5:52 PM) Invalid Interpretation Code Negative AO Auto Urine SS UA Nitrite Negative (01/20/23 5:52 PM) Invalid Interpretation Code Negative AO Auto Urine SS UA pH 6.0 (01/20/23 5:52 PM) Invalid Interpretation Code 5.0 - 8.0 AO Auto Urine SS UA Protein Negative Invalid Interpretation Code Negativemg /dL AO Auto Urine SS UA RBC 0-5 /HPF Invalid Interpretation Code None Seen/HPF AO Auto Urine SS UA Spec Grav 1.015 (01/20/23 5:52 PM) Invalid Interpretation Code 1.015-1.02 5 AO Auto Urine SS UA Specimen Type Void (01/20/23 5:52 PM) Invalid Interpretation Code AO Auto Urine SS UA Squam Epithelial LOADED /HPF Invalid Interpretation Code None Seen/HPF AO Auto Urine SS UA Urobilinogen 0.2 E.U./dL Invalid Interpretation Code 0.2-1.0E.U ./dL AO Auto Urine SS WBC (Bld) [#/Vol] 11.9 103/mcL Invalid Interpretation Code 4.6 - 10.8 10^3/mcL AO Workflow SS WBC LM.HPF (Urine sed) [#/Area] 0-5 /HPF Invalid Interpretation Code None Seen/HPF AO Auto Urine SS Yeast LM.HPF (Urine sed) [#/Area] Trace /HPF Invalid Interpretation Code AO Auto Urine SS TROPHSon 01-20-2023 Troponin I High Sensitivity 4.2 ng/L Normal 0.0-51.4 [facility] ([place]) Comment on above: Performed By: #### A SATISH, ADIFF, GFR, MDW, CMP, TROPHS, CBC #### [place] [phone] UAon 01-20-2023 Color (U) Yellow Normal [facility] ([place]) Comment on above: Performed By: #### U AMICAO, UA #### [place] [address] Glucose (U) [Mass/Vol] 500 mg/dL Abnormal Negative [facility] ([place]) Comment on above: Performed By: #### U AMICAO, UA #### [place] [address] Ketones Ql (U) Negative Normal Negative [facility] ([place]) Comment on above: Performed By: #### U AMICAO, UA #### [place] [address] UA Appear Cloudy Abnormal Clear [facility] ([place]) Comment on above: Performed By: #### U AMICAO, UA #### [address] [address] UA Blood Negative Normal Negative [facility] ([place]) Comment on above: Performed By: #### U AMICAO, UA #### [address] [address] UA Leuk Est Negative Normal Negative [facility] ([place]) Comment on above: Performed By: #### U AMICAO, UA #### [place] [phone] UA Nitrite Negative Normal Negative [facility] ([place]) Comment on above: Performed By: #### U AMICAO, UA #### [place] [address] UA pH 6.0 Normal 5.0 - 8.0 [facility] ([place]) Comment on above: Performed By: #### U AMICAO, UA #### [address] [address] UA Protein Negative Normal Negative [facility] ([place]) Comment on above: Performed By: #### U AMICAO, UA #### [address] [place], [place] [address] UA Spec Grav 1.015 Normal 1.015-1.02 5 [facility] ([place]) Comment on above: Performed By: #### U AMICAO, UA #### [place] [phone] [place], [place] [address] UA Specimen Type Void Normal [facility] ([place]) Comment on above: Performed By: #### U AMICAO, UA #### [address] [address] UA Urobilinogen 0.2 E.U./dL Normal 0.2-1.0 [facility] ([place]) Comment on above: Performed By: #### U AMICAO, UA #### [address] [address] Urobilinogen (U) [Mass/Vol] Negative Normal Negative [facility] ([place]) Comment on above: Performed By: #### U AMICAO, UA #### [address] [address] XR CHEST 2 VIEWSon 3 XR CHEST 2 VIEWS ORIGINAL EXAMINATION: TWO XRAY VIEWS OF THE CHEST01/20/2023 5:52 pm COMPARISON: 02/16/2018 HISTORY: ORDERING SYSTEM PROVIDED HISTORY: Reason for Exam: Chest pain FINDINGS: The cardiomediastinal silhouette is stable. There is no pulmonary vascular congestion. There is no focal consolidation. No pleural effusion. No pneumothorax. No acute osseous abnormality by radiograph. IMPRESSION: No acute cardiopulmonary process. I have personally reviewed the images of this examination and agree with the resident's findings and interpretation. Interpreted by: Colleen Pichardo Preliminary Report By: Carter Perkins Electronically signed By Colleen Pichardo Dictated Date: 01/20/2023 6:22:31 PM Prelim Date: 01/20/2023 6:24:41 PM Sign Date: 01/20/2023 7:04:32 PM Ordering Provider: BETO Gandhi [facility] ([place]) Absolute lymphocyte countOrd ered By: Dr. Mills on 01-18-2023 Lymphocytes Auto (Unsp spec) [#/Vol] 2.27 10*3/uL 0.83-4.51 [facility] Basophil percentageOrdered B y: Dr. Mills on 01-18-2023 Basophils/100 WBC (Bld) 0.6 % 0-1 [facility] Chloride [Moles/Vol] 101 mmol/L 98-107 [facility] Eosinophils/100 WBC (Bld) 1.0 % 0-5 [facility] Glucose [Mass/Vol] 361 mg/dL 74-106 [facility] Comment on above: Glucose result great er than or equal to 200 mg/dLsuggests DIABETES MELLITUS per A.D.A. criteria. Neutrophils (Bld) [#/Vol] 6.8 10*3/uL 2.0-7.7 [facility] Neutrophils/100 WBC (Bld) 67.9 % 47-70 [facility] Potassium [Moles/Vol] 4.2 mmol/L 3.5-5.1 [facility] Sodium [Moles/Vol] 134 mmol/L 136-145 [facility] WBC (Bld) [#/Vol] 10.0 10*3/uL 4.4-11.0 [facility] Blood erythrocytes count (nu mber/volume)Ordered By: Dr. Mills on 01-18-2023 RBC (Bld) [#/Vol] 5.31 10*6/uL 4.2-5.4 [facility] Blood hemoglobin measurement (mass/volume)Ordered By: Dr. Mills on 01-18-2023 Hemoglobin (Bld) [Mass/Vol] 15.9 g/dL 12.0-15.0 [facility] Blood lymphocytes/100 leukoc ytesOrdered By: Dr. Mills on 01-18-2023 Lymphocytes/100 WBC (Bld) 22.6 % 19-41 [facility] Blood monocytes/100 leukocyt esOrdered By: Dr. Mills on 01-18-2023 Monocytes/100 WBC (Bld) 7.7 % 0-10 [facility] Blood platelet mean volumeOr dered By: Dr. Mills on 01-18-2023 Platelet mean volume (Bld) [Entitic vol] 11.5 fL 6.2-12.0 [facility] Determination of erythrocyte mean corpuscular volume (MCV)Ordered By: Dr. Mills on 01-18-2023 MCV (RBC) [Entitic vol] 88.5 fL 81-99 [facility] Hematocrit Auto (Bld) [Volum e fraction]Ordered By: Dr. Mills on 01-18-2023 Hematocrit (Bld) [Volume fraction] 47.0 % 37-47 [facility] - Chemistry and C hemistry - challengeOrdered By: Dr. Mills on 01-18-2023 CO2 [Moles/Vol] 27.0 mmol/L 21.0-32.0 [facility] Urea nitrogen/Creatinine [Mass ratio] 12.9 mg/mg 10-20 [facility] - Hematology and Cell countsOrdered By: Dr. Mills on 01-18-2023 Erythrocyte distribution width (RBC) [Entitic vol] 39.9 fL 35.1-43.9 [facility] Erythrocyte distribution width (RBC) [Ratio] 12.3 % 11.6-14.6 [facility] Immature granulocytes/100 WBC (Bld) 0.200 % 0.0-0.9 [facility] Comment on above: IG% - Immature Granu locytes (promyelocytes, myelocytes and metamyelocytes) > 1% indicates that a LEFT SHIFT is Present. MCH (RBC) [Entitic mass] 29.9 pg 27.0-32.0 [facility] Nucleated RBC/100 WBC (Bld) [Ratio] 0 % 0-5 [facility] MCHC Auto (RBC) [Mass/Vol]Or dered By: Dr. Mills on 01-18-2023 MCHC (RBC) [Mass/Vol] 33.8 g/dL 32-36 [facility] No Panel InformationOrdered By: Dr. Mills on 01-18-2023 D-Dimer Quantitative (PE/DVT) 0.27 FEU/ug/m 0.27-0.49 [facility] Comment on above: NORMAL D-Dimer level (<0.50) indicates no DVT or PE. Estimated Creatinine Clearance Calc 126.05 ml/min [facility] Estimated GFR (MDRD) Amer 138 mL/min >60 [facility] Comment on above: GFR Calc Estimated GFR (MDRD) Non-Af Amer 114 mL/min >60 [facility] Comment on above: Non- GFR Calc Troponin I High Sensitivity 3 pg/mL 3.0-54.0 [facility] Comment on above: Please Note: New Liza t Units and Gender Specific Reference Ranges. For more information see Policy Stat Procedure [place] High Sensitivity Troponin (TNIH) and attachments. Platelets bldOrdered By: Dr. Mills on 01-18-2023 Platelets (Bld) [#/Vol] 234 10*3/uL 150-450 [facility] Serum or plasma calcium lazaro urement (mass/volume)Ordered By: Dr. Mills on 01-18-2023 Calcium [Mass/Vol] 9.0 mg/dL 8.5-10.1 [facility] Serum or plasma creatinine m easurement (mass/volume)Ordered By: Dr. Mills on 01-18-2023 Creatinine [Mass/Vol] 0.62 mg/dL 0.55-1.02 [facility] Comment on above: The validity of the calculated GFR & GFRAA in patients over 70 years has not been determined. Clinical correlation is essential. Serum or plasma urea nitroge n measurement (mass/volume)Ordered By: Dr. Mills on 01-18-2023 Urea nitrogen [Mass/Vol] 8 mg/dL 7-18 [facility] Thin prep Papanicolaou smear with manual screeningOrdered By: Dr. Mills on 01-18-2023 Thin prep Papanicolaou smear with manual screening 6 5-15 [facility] Comprehensive metabolic 2000 panelon 03-25-2022 Albumin [Mass/Vol] 4.3 g/dL 3.9 - 4.9 g/dL [facility] ALP [Catalytic activity/Vol] 117 U/L 34 - 123 U/L [facility] ALT [Catalytic activity/Vol] 40 U/L High 7 - 38 U/L [facility] Anion gap [Moles/Vol] 14 mmol/L 9 - 18 mmol/L [facility] AST [Catalytic activity/Vol] 37 U/L High 13 - 35 U/L [facility] Bilirubin [Mass/Vol] 0.5 mg/dL 0.2 - 1 .3 mg/dL [facility] Calcium [Mass/Vol] 9.6 mg/dL 8.5 - 10. 2 mg/dL [facility] Chloride [Moles/Vol] 96 mmol/L Low 97 - 10 5 mmol/L [facility] CO2 [Moles/Vol] 24 mmol/L 22 - 30 mmol/L [facility] Creatinine [Mass/Vol] 0.50 mg/dL Low 0.58 - 0.96 mg/dL [facility] Estimated Glomerular Filtration Rate 123 mL/min/1.73m >=60 mL/min/1.7 3m [facility] Glucose [Mass/Vol] 335 mg/dL High 74 - 99 mg/dL [facility] Potassium [Moles/Vol] 4.7 mmol/L 3.7 - 5.1 mmol/L [facility] Protein [Mass/Vol] 8.0 g/dL 6.3 - 8.0 g/dL [facility] Sodium [Moles/Vol] 134 mmol/L Low 136 - 144 mmol/L [facility] Urea nitrogen [Mass/Vol] 14 mg/dL 7 - 21 mg/dL [facility] LIPID PANEL, NONFASTINGon Cholesterol [Mass/Vol] 261 mg/dL High <200 mg/dL [facility] HDL Cholesterol, Nonfasting 39 mg/dL Low >39 mg/dL [facility] LDL Cholesterol, Nonfasting 163 mg/dL High <100 mg/dL [facility] LDL/HDL Ratio, Nonfasting 4.18 mg/dL High <2.54 mg/dL [facility] Non HDL Cholesterol, Nonfasting 222 mg/dL High <130 mg/dL [facility] Total Chol/HDL Ratio, Nonfasting 6.69 mg/dL High <5.10 mg/dL [facility] Triglycerides, Nonfasting 294 mg/dL High <150 mg/dL [facility] VLDL Cholesterol, Nonfasting 59 mg/dL High <30 mg/dL [facility] MAGNESIUM BLDon 03-25-2022 Magnesium [Mass/Vol] 1.9 mg/dL 1.7 - 2 .3 mg/dL [facility] Urinalysis complete panel (U )on 03-25-2022 Bilirubin Ql (U) Negative Negative [facility] Clarity (Unsp spec) Clear Clear [facility] Color (U) Yellow Yellow [facility] Epithelial cells LM.HPF (Urine sed) [#/Area] Few [facility] Glucose Test strip (U) [Mass/Vol] 3+ Abnormal Negative [facility] Hemoglobin Ql (U) Negative Negative [facility] Ketones Ql (U) Trace Abnormal Negative [facility] Leukocyte esterase Test strip Ql (U) Negative Negative [facility] Nitrite Ql (U) Negative Negative [facility] pH (U) 6.0 [pH] 5.0 - 8.0 [facility] Protein (U) [Mass/Vol] Negative Negative [facility] RBC LM.HPF (Urine sed) [#/Area] 0-3 /HPF 0-3 /HPF [facility] Specific gravity (U) [Rel density] 1.037 High 1.005 - 1.030 [facility] Urobilinogen Ql (U) Negative Negative [facility] WBC LM.HPF (Urine sed) [#/Area] 0-5 /HPF 0-5 /HPF [facility] Yeast.budding LM.HPF (Urine sed) [#/Area] Few Abnormal None Seen /HPF [facility] ALBUMIN/CREAT RATIO RND URon 03-24-2022 Albumin DL <= 20 mg/L (U) [Mass/Vol] mg/dL [facility] Albumin/Creatinine (U) [Mass ratio] <12 <30 mg/g [facility] Creatinine (U) [Mass/Vol] 103.8 mg/dL 20.0 - 300.0 mg/dL [facility] CBC W Auto Differential pane l (Bld)on 03-24-2022 Abs Immature Gran 0.03 k/uL <0.10 k/uL [facility] Basophils (Bld) [#/Vol] 0.05 10*3/uL <0.11 k/uL [facility] Basophils/100 WBC (Bld) 0.6 % [facility] Differential cell count method Nom (Bld) Auto [facility] Eosinophils (Bld) [#/Vol] 0.11 10*3/uL <0.46 k/uL [facility] Eosinophils/100 WBC (Bld) 1.3 % [facility] Erythrocyte distribution width (RBC) [Ratio] 11.7 % 11.5 - 15.0 % [facility] Hematocrit (Bld) [Volume fraction] 48.3 % High 36.0 - 46.0 % [facility] Hemoglobin (Bld) [Mass/Vol] 16.2 g/dL High 11.5 - 15.5 g/dL [facility] Immature Gran % 0.3 % [facility] Lymphocytes (Bld) [#/Vol] 2.64 10*3/uL 1.00 - 4.00 k/uL [facility] Lymphocytes/100 WBC (Bld) 30.0 % [facility] MCH (RBC) [Entitic mass] 29.8 pg 26.0 - 34.0 pg [facility] MCHC (RBC) [Mass/Vol] 33.5 g/dL 30.5 - 36.0 g/dL [facility] MCV (RBC) [Entitic vol] 88.8 fL 80.0 - 100.0 fL [facility] Monocytes (Bld) [#/Vol] 0.80 10*3/uL <0.87 k/uL [facility] Monocytes/100 WBC (Bld) 9.1 % [facility] Neutrophils (Bld) [#/Vol] 5.17 10*3/uL 1.45 - 7.50 k/uL [facility] Neutrophils/100 WBC (Bld) 58.7 % [facility] Nucleated RBC (Bld) [#/Vol] 10*3/uL <0.01 k/uL [facility] Nucleated RBC/100 WBC (Bld) [Ratio] 0.0 /100 WBC [facility] Platelet mean volume (Bld) [Entitic vol] 12.2 fL 9.0 - 12.7 fL [facility] Platelets (Bld) [#/Vol] 243 10*3/uL 150 - 400 k/uL [facility] RBC (Bld) [#/Vol] 5.44 10*6/uL High 3.90 - 5.20 m/uL [facility] WBC (Bld) [#/Vol] 8.80 10*3/uL 3.70 - 11.00 k/uL [facility] HGB A1Con 03-24-2022 Average glucose Estimated from glycated hemoglobin (Bld) [Mass/Vol] 295 mg/dL [facility] HbA1c (Bld) [Mass fraction] 11.9 % High 4.3 - 5.6 % [facility] VITAMIN D 25 HYDROXYon 03-24 25-hydroxyvitamin D3 [Mass/Vol] 17.8 ng/mL Low 31.0 - 80.0 ng/mL [facility] APTTon 01-20-2019 aPTT Coag (Bld) [Time] 23.6 s Normal 23.0-32.4 [facility] Comment on above: Result Comment: Unfr actionated Heparin Therapeutic Ranges: Standard Heparin Nomogram: 53 to 78 seconds (anti-Xa level of 0.3 to 0.7 U/ml) Low Dose/ACS Nomogram: 49 to 67 seconds (anti-Xa level of 0.2 to 0.5 U/ml) Stroke Treatment Nomogram: 49 to 67 seconds (anti-Xa level of 0.2 to 0.5 U/ml) Note: The APTT therapeutic range has been determined for the current lot of laboratory APTT reagent in use throughout the [employer]. Performed By: #### C BCDIF, PT, PTT, CK, CMP, LIPA, MG1, BHB #### [facility] [address] [place] [address] B-Hydroxybutyrateon 01-21-20 19 B-Hydroxybutyrate 0.13 mmol/L Normal <0.28 [facility] Comment on above: Performed By: #### C BCDIF, PT, PTT, CK, CMP, LIPA, MG1, BHB #### [facility] [address] [place] [address] CBC and Differentialon 01-20 Abs Baso 0.07 k/uL Normal <0.11 [facility] Comment on above: Performed By: #### C BCDIF, PT, PTT, CK, CMP, LIPA, MG1, BHB #### [facility] [address] [place] [address] Abs [place] 0.92 k/uL High <0.87 [facility] Comment on above: Performed By: #### C BCDIF, PT, PTT, CK, CMP, LIPA, MG1, BHB #### [facility] [address] [place] [address] Abs Neut 5.38 k/uL Normal 1.45-7.50 [facility] Comment on above: Performed By: #### C BCDIF, PT, PTT, CK, CMP, LIPA, MG1, BHB #### [facility] [address] [place] [address] Basophils/100 WBC (Bld) 0.8 % Normal [facility] Comment on above: Performed By: #### C BCDIF, PT, PTT, CK, CMP, LIPA, MG1, BHB #### [facility] [address] [place] [address] Eosinophils (Bld) [#/Vol] 0.09 10*3/uL Normal <0.46 [facility] Comment on above: Performed By: #### C BCDIF, PT, PTT, CK, CMP, LIPA, MG1, BHB #### [facility] [address] [place] [address] Eosinophils/100 WBC (Bld) 1.0 % Normal [facility] Comment on above: Performed By: #### C BCDIF, PT, PTT, CK, CMP, LIPA, MG1, BHB #### [facility] [address] [place] [address] Erythrocyte distribution width (RBC) [Ratio] 12.7 % Normal 11.5-15.0 [facility] Comment on above: Performed By: #### C BCDIF, PT, PTT, CK, CMP, LIPA, MG1, BHB #### [facility] [address] [place] [address] Hematocrit (Bld) [Volume fraction] 48.5 % High 36.0-46.0 [facility] Comment on above: Performed By: #### C BCDIF, PT, PTT, CK, CMP, LIPA, MG1, BHB #### [facility] [address] [place] [address] Hemoglobin (Bld) [Mass/Vol] 15.9 g/dL High 11.5-15.5 [facility] Comment on above: Performed By: #### C BCDIF, PT, PTT, CK, CMP, LIPA, MG1, BHB #### [facility] [address] [phone] Lymphocytes (Bld) [#/Vol] 2.77 10*3/uL Normal 1.00-4.00 [facility] Comment on above: Performed By: #### C BCDIF, PT, PTT, CK, CMP, LIPA, MG1, BHB #### [facility] [address] [place], [place] [phone] Lymphocytes/100 WBC (Bld) 30.0 % Normal [facility] Comment on above: Performed By: #### C BCDIF, PT, PTT, CK, CMP, LIPA, MG1, BHB #### [facility] [address] [place] [address] MCH (RBC) [Entitic mass] 29.2 pG Normal 26.0-34.0 [facility] Comment on above: Performed By: #### C BCDIF, PT, PTT, CK, CMP, LIPA, MG1, BHB #### [facility] [address] [place] [address] MCHC (RBC) [Mass/Vol] 32.8 g/dL Normal 30.5-36.0 [facility] Comment on above: Performed By: #### C BCDIF, PT, PTT, CK, CMP, LIPA, MG1, BHB #### [facility] [address] [place] [address] MCV (RBC) [Entitic vol] 89.2 fL Normal 80.0-100.0 [facility] Comment on above: Performed By: #### C BCDIF, PT, PTT, CK, CMP, LIPA, MG1, BHB #### [facility] [address] [place], [place] [phone] Monocytes/100 WBC (Bld) 10.0 % Normal [facility] Comment on above: Performed By: #### C BCDIF, PT, PTT, CK, CMP, LIPA, MG1, BHB #### [facility] [address] [place], [place] [phone] Neutrophils/100 WBC (Bld) 58.2 % Normal [facility] Comment on above: Performed By: #### C BCDIF, PT, PTT, CK, CMP, LIPA, MG1, BHB #### [facility] [address] [place], [place] [phone] Platelet mean volume (Bld) [Entitic vol] 12.4 fL Normal 9.0-12.7 [facility] Comment on above: Performed By: #### C BCDIF, PT, PTT, CK, CMP, LIPA, MG1, BHB #### [facility] [address] Platelets (Bld) [#/Vol] 240 10*3/uL Normal 150-400 [facility] Comment on above: Performed By: #### C BCDIF, PT, PTT, CK, CMP, LIPA, MG1, BHB #### [facility] [address] [address] RBC (Bld) [#/Vol] 5.44 10*6/uL High 3.90-5.20 [facility] Comment on above: Performed By: #### C BCDIF, PT, PTT, CK, CMP, LIPA, MG1, BHB #### [facility] [address] [place] [address] WBC (Bld) [#/Vol] 9.23 10*3/uL Normal 3.70-11.00 [facility] Comment on above: Performed By: #### C BCDIF, PT, PTT, CK, CMP, LIPA, MG1, BHB #### [facility] [address] [place] [address] CKon 01-20-2019 CK [Catalytic activity/Vol] 49 U/L Normal 42-196 [facility] Comment on above: Performed By: #### C BCDIF, PT, PTT, CK, CMP, LIPA, MG1, BHB #### [facility] [address] [place], [place] [phone] Comp Metabolic Panelon 01-20 Albumin [Mass/Vol] 4.3 g/dL Normal 3.9-4.9 [facility] Comment on above: Performed By: #### C BCDIF, PT, PTT, CK, CMP, LIPA, MG1, BHB #### [facility] [address] [place] [address] ALP [Catalytic activity/Vol] 97 U/L Normal 34-123 [facility] Comment on above: Performed By: #### C BCDIF, PT, PTT, CK, CMP, LIPA, MG1, BHB #### [facility] [address] [address] ALT [Catalytic activity/Vol] 66 U/L High 7-38 [facility] Comment on above: Performed By: #### C BCDIF, PT, PTT, CK, CMP, LIPA, MG1, BHB #### [facility] [address] [address] Anion gap [Moles/Vol] 10 mmol/L Normal 9-18 [facility] Comment on above: Performed By: #### C BCDIF, PT, PTT, CK, CMP, LIPA, MG1, BHB #### [facility] [address] [place] [address] AST [Catalytic activity/Vol] 57 U/L High 13-35 [facility] Comment on above: Performed By: #### C BCDIF, PT, PTT, CK, CMP, LIPA, MG1, BHB #### [facility] [address] [place] [address] Bilirubin [Mass/Vol] 0.8 mg/dL Normal 0.2-1.3 [facility] Comment on above: Performed By: #### C BCDIF, PT, PTT, CK, CMP, LIPA, MG1, BHB #### [facility] [address] [place] [address] Calcium [Mass/Vol] 9.9 mg/dL Normal 8.5-10.2 [facility] Comment on above: Performed By: #### C BCDIF, PT, PTT, CK, CMP, LIPA, MG1, BHB #### [facility] [address] [place] [address] Chloride [Moles/Vol] 91 mmol/L Low 97-105 [facility] Comment on above: Performed By: #### C BCDIF, PT, PTT, CK, CMP, LIPA, MG1, BHB #### [facility] [address] [place] [address] CO2 [Moles/Vol] 31 mmol/L High 22-30 [facility] Comment on above: Performed By: #### C BCDIF, PT, PTT, CK, CMP, LIPA, MG1, BHB #### [facility] [address] [facility] [phone] Creatinine [Mass/Vol] 0.61 mg/dL Normal 0.58-0.96 [facility] Comment on above: Performed By: #### C BCDIF, PT, PTT, CK, CMP, LIPA, MG1, BHB #### [facility] [address] [facility] [phone] eGFR- Amer. >60 Normal [facility] Comment on above: Performed By: #### C BCDIF, PT, PTT, CK, CMP, LIPA, MG1, BHB #### [facility] [address] [place] [address] GFR/1.73 sq M predicted among non-blacks MDRD (S/P/Bld) [Vol rate/Area] mL/min/{1.73_m2} Normal [facility] Comment on above: Result Comment: eGFR (Estimated GFR) Units of measure: mL/min/1.73 meters squared eGFR is derived from the reexpressed MDRD Study equation using the following parameters: serum creatinine, age, gender and race. The creatinine assay has been calibrated to be traceable to IDMS. An eGFR <60 mL/min/1.73m2 for >3 months is consistent with chronic kidney disease. Refer to KDOQI guidelines for clinical interpretation. In patients with unstable renal function, e.g. those with acute kidney injury, the eGFR may not accurately reflect actual GFR. Performed By: #### C BCDIF, PT, PTT, CK, CMP, LIPA, MG1, BHB #### [facility] [address] [facility] [phone] Glucose [Mass/Vol] 296 mg/dL High 74-99 [facility] Comment on above: Result Comment: The [place] Diabetes Association (ADA) provides guidance for cutoff values for fasting glucose and random glucose. The ADA defines fasting as no caloric intake for at least 8 hours. Fasting plasma glucose results between 100 to 125 mg/dL indicate increased risk for diabetes (prediabetes). Fasting plasma glucose results greater than or equal to 126 mg/dL meet the criteria for diagnosis of diabetes. In the absence of unequivocal hyperglycemia, results should be confirmed by repeat testing. In a patient with classic symptoms of hyperglycemia or hyperglycemic crisis, random plasma glucose results greater than or equal to 200 mg/dL meet the criteria for diagnosis of diabetes. Reference: Standards of Medical Care in Diabetes 2016, [place] [employer] Association. Diabetes Care. 2016.39(Suppl 1). Performed By: #### C BCDIF, PT, PTT, CK, CMP, LIPA, MG1, BHB #### [facility] [address] [place] [address] Potassium [Moles/Vol] 4.5 mmol/L Normal 3.7-5.1 [facility] Comment on above: Performed By: #### C BCDIF, PT, PTT, CK, CMP, LIPA, MG1, BHB #### [facility] [address] [place] [address] Protein [Mass/Vol] 7.7 g/dL Normal 6.3-8.0 [facility] Comment on above: Performed By: #### C BCDIF, PT, PTT, CK, CMP, LIPA, MG1, BHB #### [facility] [address] [place] [address] Sodium [Moles/Vol] 132 mmol/L Low 136-144 [facility] Comment on above: Performed By: #### C BCDIF, PT, PTT, CK, CMP, LIPA, MG1, BHB #### [facility] [address] [place] [address] Urea nitrogen [Mass/Vol] 10 mg/dL Normal 7-21 [facility] Comment on above: Performed By: #### C BCDIF, PT, PTT, CK, CMP, LIPA, MG1, BHB #### [facility] [address] [place], [place] [phone] ED NOTEon 01-20-2019 ED NOTE HNO ID: [id number] Author: Amita Uriarte RN Service: ? Author Type: Registered Nurse Type: ED Notes Filed: 01/20/2019 2:08 PM Note Text: Pt was discharged after being evaluated per Dr Green She will follow up with GI as per instructed and will return if there is any further increase in pain Normal [facility] ED NOTE HNO ID: [id number] Author: Amita French) MANN Uriarte Service: ? Author Type: Registered Nurse Type: ED Notes Filed: 01/20/2019 1:26 PM Note Text: Voided urine sample obtained [facility] ED NOTE HNO ID: [id number] Author: Amita LoyaRn) MANN Uriarte Service: ? Author Type: Registered Nurse Type: ED Notes Filed: 01/20/2019 1:13 PM Note Text: Pt report was received Pt is laughing to family at the bedside [facility] ED NOTE HNO ID: [id number] Author: Cinthia LoyaRn) MANN Smith Service: Nursing Author Type: Registered Nurse Type: ED Notes Filed: 01/20/2019 12:36 PM Note Text: Pt presents to ED for C/O mid upper abd pain X 3 weeks. +nausea, denies diarrhea. States she has been seeing Dr Mandujano for this as well in the past 3 weeks. [facility] ED PROV NOTEon 01-20-2019 ED PROV NOTE HNO ID: [id number] Author: Duy Green MD Service: ? Author Type: Physician Type: ED Provider Notes Filed: 01/20/2019 1:58 PM Note Text: ED Provider Note Patient Name: Lukasz Diaz SERVICE DATE: 01/20/19 History Patient presents with: Abdominal Pain Nausea HPI Ms. Diaz is a pleasant 38-year-old female presenting today with ongoing upper abdominal discomfort in a band toward the top of her abdomen as well as nausea over the last 2 or 3 weeks. She was seen at [facility] last week and had a CT scan and labs, and was noted to have possibly mildly elevated liver numbers, as well as a CT that was reassuring. She is status post cholecystectomy and appendectomy and hysterectomy, though she still has both ovaries. She feels a bit as she did previously when she had a stone stuck in the bile duct, though she doesn't think she had a previous procedure for that, and it passed in a few weeks. She denies high fevers or chills or chest pain or trouble breathing. She did have some scant blood in 2 of her emesis episodes over the last week, the last of which was earlier today. PAST MEDICAL HISTORY Diagnosis Date - Abdominal pain, right lower quadrant 2009 - Asthma 06/12/[address] Olbrych - Controlled type 2 diabetes mellitus without complication, without long-term current use of insulin (HCC) 05/03/2016 - Diarrhea - Dyslipidemia 06/05/2014 - Elevated LFTs 06/10/2015 - Epigastric pain - Essential hypertension with goal blood pressure less than 130/85 04/26/2016 - Fatty liver 06/13/2014 - Gastroesophageal reflux disease without esophagitis 06/10/2015 Resolved. - Generalized anxiety disorder 01/02/2016 - Hypertension - Large breasts 08/23/2017 Had breast reduction 02/16/2018 - Mild intermittent asthma without complication 11/15/2016 - Moderate episode of recurrent major depressive disorder (HCC) 11/15/2016 - Morbid obesity with body mass index (BMI) of 45.0 to 49.9 in adult ([facility]) 07/13/2017 - MVP (mitral valve prolapse) - Polycystic ovaries - PTSD (post-traumatic stress disorder) 01/02/2016 - Pulmonary HTN ([facility]) Seeing Dr. Campbell - Routine gynecological examination Sees Dr. Estrada PAST SURGICAL HISTORY Procedure Laterality Date - *STRESS TEST PC 02/2015 NL - APPENDECTOMY 14y/o open case - CARPAL TUNNEL [phone] - COLONOSCOP W/ OR W/O BRSH SPEC 08/05/15 Colonoscopy out pt [facility] - EGD W/O OR W/BRUSH/WASH 08/05/15 EGD out pt [facility] - HYSTERECTOMY HX - LAPAROSCOPIC CHOLEYCYSTECTOMY [id number] Cholecystectomy, lap - PAST SURGICAL HISTORY OF 02/2014 right meniscus repair - PAST SURGICAL HISTORY OF 01/18/2017 right medial meniscal tear repair - PAST SURGICAL HISTORY OF 02/2018 breast reduction surgery FAMILY HISTORY Problem Relation Age of Onset - other (Parkinson) Mother - Diabetes Father - Coronary Artery Disease Father 51 - Breast Cancer Maternal Grandmother - Heart Maternal Grandmother - Diabetes Maternal Grandmother - other (crohns) Sister - Colon Cancer Maternal Uncle - Heart Maternal Uncle - Coronary Artery Disease Maternal Uncle first in late 30's Social History Tobacco Use - Smoking status: Former Smoker Packs/day: 0.50 Years: 10.00 Pack years: 5.00 Types: Cigarettes Last attempt to quit: 09/20/2012 Years since quittin.3 - Smokeless tobacco: Never Used - Tobacco comment: Father smoked in childhood home. Substance and Sexual Activity - Alcohol use: Yes Comment: 3-4 at time twice a year, mixed drinks - Drug use: No - Sexual activity: Not Currently control/protection: Condom ALLERGIES Allergen Reactions - Toradol [Ketorolac] Shortness of Breath Elevates BP; dyspnea - Zoloft [Sertraline * Other: See Comments suicidal. - Actos [Pioglitazone* Other: See Comments Sweats and chills - Celexa [Citalopram] Intolerance Electrical shock feelings - Eggs [Egg] GI Upset - Fenofibrate GI Upset - Lipitor [Atorvastat* Myalgia - Penicillins Hives Childhood. - Pravachol [Pravasta* GI Upset Review of Systems Constitutional: Negative for chills and fever. HENT: Negative for ear pain, rhinorrhea and sore throat. Respiratory: Negative for cough and shortness of breath. Cardiovascular: Negative for chest pain and leg swelling. Gastrointestinal: Positive for abdominal pain, nausea and vomiting. Negative for blood in stool and diarrhea. Genitourinary: Positive for hematuria. Negative for dysuria, flank pain and frequency. Musculoskeletal: Negative for back pain. Skin: Negative for rash. Neurological: Negative for speech difficulty, weakness, light-headedness, numbness and headaches. Psychiatric/Behavioral: Negative for hallucinations and suicidal ideas. Physical Exam BP 123/85 Pulse 62 Temp (Src) 98.2 (Oral) Resp 15 Ht 5' 9 (1.75m) Wt 285 lb (129.3kg) SpO2 98% LMP 09/02/2015 BMI 42.07 kg/(m2). Physical Exam Constitutional: She is oriented to person, place, and time. She appears well-developed and well-nourished. No distress. HENT: Head: Normocephalic and atraumatic. Mouth/Throat: No oropharyngeal exudate. Eyes: Pupils are equal, round, and reactive to light. Neck: Normal range of motion. Neck supple. No tracheal deviation present. Cardiovascular: Normal rate and intact distal pulses. Exam reveals no gallop and no friction rub. No murmur heard. Pulmonary/Chest: Effort normal and breath sounds normal. No respiratory distress. She has no wheezes. She has no rales. Abdominal: Soft. Bowel sounds are normal. She exhibits no distension. There is tenderness. There is no rebound and no guarding. Mild diffuse upper abd tenderness Musculoskeletal: Normal range of motion. She exhibits no edema. Lymphadenopathy: She has no cervical adenopathy. Neurological: She is alert and oriented to person, place, and time. No cranial nerve deficit. She exhibits normal muscle tone. Skin: Skin is warm and dry. No erythema. Psychiatric: She has a normal mood and affect. Her behavior is normal. Judgment and thought content normal. Nursing note and vitals reviewed. Diagnostic Testing ED Labs Ordered and Reviewed COMP METABOLIC PANEL - Abnormal; Notable for the following components: Result Value Ref Range AST 57 (*) 13 - 35 U/L Glucose 296 (*) 74 - 99 mg/dL Sodium 132 (*) 136 - 144 mmol/L Chloride 91 (*) 97 - 105 mmol/L CO2 31 (*) 22 - 30 mmol/L ALT 66 (*) 7 - 38 U/L All other components within normal limits CBC + DIFF - Abnormal; Notable for the following components: RBC 5.44 (*) 3.90 - 5.20 m/uL Hemoglobin 15.9 (*) 11.5 - 15.5 g/dL Hematocrit 48.5 (*) 36.0 - 46.0 % Abs [place] 0.92 (*) <0.87 k/uL All other components within normal limits URINALYSIS - Abnormal; Notable for the following components: Appearance (U) Hazy (*) Clear Glucose, Urine 500 (*) Negative mg/dL Specific Cory, Ur >1.029 (*) 1.001 - 1.029 Protein, Urine 30 (*) Negative mg/dL All other components within normal limits URINE MICROSCOPIC - Abnormal; Notable for the following components: Cast SEE COMMENT (*) 0 /LPF Bacteria Many (*) 0 /HPF All other components within normal limits MAGNESIUM BLD LIPASE BLD CK CREATINE KINASE TROPONIN T PROTHROMBIN TIME/PT ACTIVATED PTT KETONES/ACETONE/BHB Procedures ED Course / Clinical Impression Clinical Impressions as of Jan 20 1357 Upper abdominal pain Nausea Elevated bilirubin MDM / Disposition / Plan Course: Vital signs were reviewed. Triage records were reviewed. Medical records were reviewed. Nursing notes were reviewed and incorporated. Parenteral analgesics given Intravenous fluids were given. The following medications were administered: Fentanyl, Zofran, Pepcid Labs reviewed and interpreted as below. Radiographs were reviewed as below. Medical Decision Making: Ddx: Choledocholithiasis, could be gastritis or esophagitis or ulcer, unlikely perforation as CT was reassuring week ago and pain is similar, not peritoneal exam, lipase reassuring against pancreatitis, electrolyte disarray, anemia, abdominal migraine or similar, sounds like Sandy-Thompson tear versus less likely upper GI bleed. Assessment and plan: Ms. Diaz is a 38 yo F presenting today with some upper abdominal discomfort and nausea and a few episodes of vomitus streaked with blood. Her labs are relatively reassuring, though her total bilirubin is mildly elevated to 0.8, and her AST and ALT are minimally elevated, near her previous range, likely from fatty liver. Her alkaline phosphatase is reassuring, as is her normal white blood count in the context of a chronically elevated white blood count. I discussed her case with Dr. Garrett, who would strongly prefer that she see him as an outpatient in the next 1-2 days, which she thinks is reasonable, as opposed to being admitted for concern for choledocholithiasis. She understands that she should return immediately if she has any worsening symptoms. We will try Pepcid in the meantime, and she is comfortable trying outpatient follow-up. The attending who evaluated and managed this patient was Duy Green . Plan: The patient was discharged home with verbal and written instructions. They were instructed to return as needed for persistent or worsening symptoms or any new concerns. Consent: A procedure or transfusion was performed - No Duy Green MD SIGNATURE: MD Duy Al MD 01/20/19 1358 Normal [facility] Lipaseon 01-20-2019 Lipase [Catalytic activity/Vol] 53 U/L Normal 16-61 [facility] Comment on above: Performed By: #### C BCDIF, PT, PTT, CK, CMP, LIPA, MG1, BHB #### [facility] [address] [facility] [phone] Magnesiumon 01-20-2019 Magnesium [Mass/Vol] 1.9 mg/dL Normal 1.7-2.3 [facility] Comment on above: Performed By: #### C BCDIF, PT, PTT, CK, CMP, LIPA, MG1, BHB #### [facility] [address] [phone] Protimeon 01-20-2019 PT Coag (PPP) [Time] 10.6 s Normal 9.7-13.0 [facility] Comment on above: Performed By: #### C BCDIF, PT, PTT, CK, CMP, LIPA, MG1, BHB #### [facility] [address] [phone] PT Coag (PPP) [Time] 1.0 s Normal 0.9-1.3 [facility] Comment on above: Result Comment: Macrina min K Antagonist (VKA) Therapeutic Range: INR 2 to 3 (Target INR of 2.5) Note: For patients treated with VKA drugs, such as warfarin, the [employer] 2012 Guideline recommends a therapeutic INR range of 2 to 3 (target INR of 2.5). This recommendation includes high-risk patients with antiphospholipid syndrome with previous arterial or venous thromboembolism, current-generation mechanical or bioprosthetic aortic heart valve replacement. Note: Patients with mechanical aortic valve replacement and additional risk factors for thromboembolic events (atrial fibrillation, previous thromboembolism, LV dysfunction, hypercoagulable conditions) or an older generation mechanical AVR (i.e., ball in-Cage) or any mechanical MVR should have a INR therapeutic range of 2.5 to 3.5 (target INR of 3). Nahomy GH, et al. Chest 2012, 141:7S-47S Anthony RA, et al. [facility] 2017, 70: 252-289 Performed By: #### C BCDIF, PT, PTT, CK, CMP, LIPA, MG1, BHB #### [facility] [address] [place] [address] Troponin Ton 01-20-2019 Troponin T.cardiac [Mass/Vol] ug/L Normal 0.000-0.02 9 [facility] Comment on above: Performed By: #### C BCDIF, PT, PTT, CK, CMP, LIPA, MG1, BHB #### [facility] [address] [facility] [phone] Urinalysison 01-20-2019 Bilirubin, Urine Negative Normal Negative [facility] Comment on above: Performed By: #### C BCDIF, PT, PTT, CK, CMP, LIPA, MG1, BHB #### [facility] [address] [facility] [phone] Clarity (U) Hazy Critically abnormal Clear [facility] Comment on above: Performed By: #### C BCDIF, PT, PTT, CK, CMP, LIPA, MG1, BHB #### [facility] [address] [place] [address] Color (U) Yellow Normal Yellow [facility] Comment on above: Performed By: #### C BCDIF, PT, PTT, CK, CMP, LIPA, MG1, BHB #### [facility] [address] [address] Glucose Ql (U) 500 mg/dL Critically abnormal Negative [facility] Comment on above: Performed By: #### C BCDIF, PT, PTT, CK, CMP, LIPA, MG1, BHB #### [facility] [address] [place] [address] Hemoglobin/Blood,Ur Negative Normal Negative [facility] Comment on above: Performed By: #### C BCDIF, PT, PTT, CK, CMP, LIPA, MG1, BHB #### [facility] [address] [place] [address] Ketones Ql (U) Negative Normal Negative [facility] Comment on above: Performed By: #### C BCDIF, PT, PTT, CK, CMP, LIPA, MG1, BHB #### [facility] [address] [place] [address] Leukest Negative Normal Negative [facility] Comment on above: Performed By: #### C BCDIF, PT, PTT, CK, CMP, LIPA, MG1, BHB #### [facility] [address] [place], [place] [id number] Nitrite Ql (U) Negative Normal Negative [facility] Comment on above: Performed By: #### C BCDIF, PT, PTT, CK, CMP, LIPA, MG1, BHB #### [facility] [address] [place] [address] pH (Bld) 6.0 Normal 5.0-8.0 [facility] Comment on above: Performed By: #### C BCDIF, PT, PTT, CK, CMP, LIPA, MG1, BHB #### [facility] [address] [place] [address] Protein (U) [Mass/Vol] 30 mg/dL Critically abnormal Negative [facility] Comment on above: Performed By: #### C BCDIF, PT, PTT, CK, CMP, LIPA, MG1, BHB #### [facility] [address] [place] [address] Specific Cory, Ur >1.029 High 1.001-1 .02 9 [facility] Comment on above: Performed By: #### C BCDIF, PT, PTT, CK, CMP, LIPA, MG1, BHB #### [facility] [address] [place] [address] Urobilinogen Qn (U) 1.0 Normal 0.2-1.0 [facility] Comment on above: Performed By: #### C BCDIF, PT, PTT, CK, CMP, LIPA, MG1, BHB #### [facility] [address] [place] [address] Urine Microscopic (FOR LAB U SE ONLY)on 01-20-2019 Bacteria LM.HPF (Urine sed) [#/Area] Many Critically abnormal 0 [facility] Comment on above: Performed By: #### C BCDIF, PT, PTT, CK, CMP, LIPA, MG1, BHB #### [facility] [address] [place] [address] Cast SEE COMMENT Critically abnormal 0 [facility] Comment on above: Result Comment: 1-3 Hyaline Casts Performed By: #### C BCDIF, PT, PTT, CK, CMP, LIPA, MG1, BHB #### [facility] [address] [place] [address] Epithelial cells LM.HPF (Urine sed) [#/Area] SEE COMMENT Normal [facility] Comment on above: Result Comment: 0-5 Squamous Epithelial Cells Performed By: #### C BCDIF, PT, PTT, CK, CMP, LIPA, MG1, BHB #### [facility] [address] [place] [address] RBC (U) [#/Vol] 0-3 Normal 0-3 [facility] Comment on above: Performed By: #### C BCDIF, PT, PTT, CK, CMP, LIPA, MG1, BHB #### [facility] [address] [facility] [phone] WBC (Bld) [#/Vol] 0-5 Normal 0-5 [facility] Comment on above: Performed By: #### C BCDIF, PT, PTT, CK, CMP, LIPA, MG1, BHB #### [facility] [address] [facility] [phone] CNCOon 03-02-2018 CNCO Letter Nessa Campbell M.D.Department of [facility] [place] [id number]: tu Diaz March [birth year]Case reference #: [id number] ID#: [id number] Whom It May Concern:Lukasz Diaz is under my care for treatment of sleep apnea, pulmonaryhypertension and chronic obesity. Echocardiogram was ordered to assess rightheart function and pulmonary pressures, to follow her disease progression.Please reconsider denial for this procedure, as it is indicated to follow herclinically.Sincerely,Abraham Campbell MD [facility] CNPMari 02-14-2018 CNPN Telephone (AGCARDPOB) LUKASZ DIAZ ([id number]) 1980 [facility] Time Provider Department02/14/18 CRISTI CAMPBELL AGCARDPOSarah During your visit today, we recorded the following information about you:Shira Dc, RN 02/14/2018 4:58 PM SignedPatient called in/LM stating that she will need her pre-op echocardiogram faxedto her surgeon. Please call patient to facilitate this.Oly Batista MA 02/15/2018 4:22 PM SignedCopy faxed to Dr. Nhan Montelongo with [facility] @[phone].Davida Sonergies As of Date: 02/14/2018 Noted Allergy ReactionTORADOL (KETOROLAC) 03/06/2014 12 - Shortness of Breath Comments: Elevates BP; dyspneaACTOS (PIOGLITAZONE HCL) 11/15/2016 14 - Other: See Comments Comments: Sweats and chillsEGGS (EGG) 08/28/2013 8 - GI UpsetFENOFIBRATE 07/27/2017 8 - GI UpsetLIPITOR (ATORVASTATIN) 11/09/2015 17 - MyalgiaPRAVACHOL (PRAVASTATIN SODIUM) 07/27/2017 8 - GI UpsetZOLOFT (SERTRALINE HCL) 01/02/2016 14 - Other: See Comments Comments: suicidal.PENICILLINS 12/28/2007 4 - Hives Comments: Childhood.Date Reviewed: 01/31/2018Reviewed by: Akua (Jani) Cornelius - Fully AssessedReason for Visit: Follow Up Tests Results [770]Prescriptions as of 02/14/2018 Sig: METFORMIN ER 500 MG TABLET,EX* Take 2 tablets by mouth twice* NADOLOL 40 MG TABLET Take 1 tablet by mouth twice * BUPROPION HCL 100 MG TABLET TAKE 1 TABLET THREE TIMES WESLEY* ALOGLIPTIN 25 MG TABLET TAKE 1 TABLET DAILYX LORAZEPAM 1 MG TABLET Take 1/2-1 tab in a day as ne* SPIRONOLACTONE 50 MG TABLET Take 1 tablet by mouth once d* FUROSEMIDE 40 MG TABLET Take 1 tablet by mouth once d* CYCLOBENZAPRINE 10 MG TABLET Take 1 tablet by mouth three * BUSPIRONE 15 MG TABLET TAKE 1 TABLET BY MOUTH THREE * FLUTICASONE 50 MCG/ACTUATION * Use 2 Sprays in each nostril * ALBUTEROL SULFATE HFA 90 MCG/* Inhale 2 Puffs as instructed * OMEPRAZOLE 40 MG CAPSULE,FRANCI* Take 1 capsule by mouth once *Problem List As Of Date 02/14/2018 Noted Resolved Abdominal pain, right lower quadrant [R10.31] INVALID FOR*01/18/2013 Abnormal glandular Papanicolaou smear of cervix*INVALID FOR* Priority: C PCOS (polycystic ovarian syndrome) [E28.2] INVALID FOR* Priority: C DUB (dysfunctional uterine bleeding) [N93.8] INVALID FOR* Priority: C MVP (mitral valve prolapse) [I34.1] Priority: B Pulmonary HTN (HCC) [I27.20] Priority: A More... Routine gynecological examination [Z01.419] Priority: D More... Dyslipidemia [E78.5] INVALID FOR* Priority: A More... Fatty liver [K76.0] INVALID FOR* Priority: B Morbid obesity (HCC) [E66.01] INVALID FOR*07/13/2017 Priority: B Elevated LFTs [R79.89] INVALID FOR* Priority: B Gastroesophageal reflux disease without esophag*INVALID FOR* Priority: A More... PTSD (post-traumatic stress disorder) [F43.10] INVALID FOR* Priority: A Generalized anxiety disorder [F41.1] INVALID FOR* Priority: A Essential hypertension with goal blood pressure*INVALID FOR* Priority: A Controlled type 2 diabetes mellitus without com*INVALID FOR* Priority: A Mild intermittent asthma without complication [*INVALID FOR* Priority: A Moderate episode of recurrent major depressive *INVALID FOR* Priority: A Current use of proton pump inhibitor [Z79.899] INVALID FOR* More... Morbid obesity with body mass index (BMI) of 45*INVALID FOR* Priority: B Neck pain on left side [M54.2] INVALID FOR* Muscle spasm [M62.838] INVALID FOR* Large breasts [N62] INVALID FOR* Status:Closed by SHIRA DC RN on 02/14/18 [facility] Office Visit (AGCARDWST) LUKASZ DIAZ ([id number]) 1980 FDate Time Provider Department01/31/18 4:00 PM CRISTI CAMPBELL During your visit today, we recorded the following information about you: Pulse Blood pressure Weight 110/minute 121/85 139.9 kgCristi Campbell MD 01/31/2018 5:17 PM SignedPERTINENT CARDIAC HISTORYPulmonary HTN - mildObesityHLOSA? - negative sleep studiesCP - normal coronaries by cathHTNDMADHERENCE TO GUIDELINESACE-I or ARB for HF with prior LVEFANDlt;40 (NQF 0081) - N/AASA or Plavix for ASHD (NQF 0067) - N/ABeta diane for ASHD with prior AR or prior LVEFANDlt;40 (NQF 0070) - N/ABeta diane for HF with prior LVEFANDlt;40 (NQF 0083) - N/AACE-I or ARB for ASHD with DM or prior LVEFANDlt;40 (NQF 0066) - N/AStatin therapy for ASHD or FHL or DM - N/ABMI documented and plan if ANDgt;25 (NQF 0421) - lifestyle recommendation formTobacco use screening and referral (NQF 0028) - lifestyle recommendation formRecommendation for whole food, plant based diet - lifestyle recommendation formCLINICAL IMPRESSION/PLAN:Lukasz Diaz has good exercise tolerance. She is committed to continuing tolose weight and I encouraged her to continue exercise. Her coronaries weredocumented to be normal in the past and she is having no symptoms to suggestischemia. There is no evidence of decompensated heart failure or arrhythmia.Risk of perioperative cardiac complications is low for the procedureanticipated, and no further testing is required prior to surgery. I haverecommended that we update her echocardiogram to assess her right heartfunction and pulmonary pressures. This could be done next week prior to hersurgery.She has been tested twice in the past for sleep apnea and reports that thesewere normal. Her pulmonary hypertension is mild and likely related to herobesity. D-dimer in the past was in the normal range. There is no evidence ofcollagen vascular disease, although she has a chronic facial rash.She's been advised to make sure she stays on nadolol up to the time of hersurgery. I've given her a prescription for a TSH level to be done with herpreoperative labs.I have offered her a follow-up visit for 8 months.Thank you for asking me to see and make recommendations on Lukasz Diaz.This report will be faxed and mailed to you. Recommendations will be updatedfollowing performance of the echocardiogram.Written and verbal health teaching given to patient, patient verbalizesunderstanding and agrees with treatment plan.This note was generated using [employer] voice recognition system, and there may besome incorrect words, spellings, and punctuation that were not noted inchecking the note before saving.DIAGNOSIS FOR VISIT:Preoperative cardiac risk assessmentPulmonary hypertensionHISTORY OF PRESENT ILLNESSLukasz Diaz is a 37-year-old woman who is seen in consultation at [facility] of Dr. Montelongo for preoperative risk assessment prior to bilateralreduction mammoplasty. She has prior history of mild pulmonary hypertension.She was previously seen in the office several years ago. She had undergoneright and left heart cath with findings of mild pulmonary hypertension andslight elevation of LVEDP. Her coronaries were normal. She had atypical chestpain, which has subsequently resolved.She reports that she has lost almost 50 pounds over the last several years. Sheis exercising regularly and has just joined [employer]. She walks on [place] at 3 miles per hour at a 1-2% grade and she routinely exceeds 5 METsof activity with her housework. She reports that she can walk up 2 flights ofsteps without stopping. She has recently undergone hysterectomy withoutcomplication. She denies orthopnea. She's had no edema, syncope, TIAs,amaurosis or claudication. She has had no palpitations.She recently ran out of her nadolol. She took a dose today but had missedseveral days. Typically her heart rate runs in the eighties.ALLERGIES:ALLERGIE SAllergen Reactions- Toradol [Ketorolac] Shortness of Breath Elevates BP; dyspnea- Actos [Pioglitazone* Other: See Comments Sweats and chills- Eggs [Egg] GI Upset- Fenofibrate GI Upset- Lipitor [Atorvastat* Myalgia- Pravachol [Pravasta* GI Upset- Zoloft [Sertraline * Other: See Comments suicidal.- Penicillins Hives Childhood.CURRENT OUTPATIENT MEDICATIONS:LORazepam (ATIVAN) 1 mg tablet Take 1/2-1 tab in a day as needed.metFORMIN ER (GLUCOPHAGE XR) 500 mg 24 hr tablet Take 2 tablets by mouth twicedaily.alogliptin 25 mg tab TAKE 1 TABLET EVERY DAYspironolactone (ALDACTONE) 50 mg tablet Take 1 tablet by mouth once daily.furosemide (LASIX) 40 mg tablet Take 1 tablet by mouth once daily.cyclobenzaprine (FLEXERIL) 10 mg tablet Take 1 tablet by mouth three timesdaily as needed for Muscle Spasm (muscle pain, tightness in left neck region).buPROPion (WELLBUTRIN) 100 mg tablet Take one tab by mouth three times a day.nadolol (CORGARD) 40 mg tablet Take 1 tablet by mouth twice daily.busPIRone (BUSPAR) 15 mg tablet TAKE 1 TABLET BY MOUTH THREE TIMES DAILYfluticasone (FLONASE) 50 mcg/actuation nasal spray Use 2 Sprays in each nostrilonce daily.albuterol HFA (VENTOLIN HFA) 90 mcg/actuation inhaler Inhale 2 Puffs asinstructed every 6 hours as needed.Omeprazole 40 mg capsule Take 1 capsule by mouth once daily.codeine-guaiFENesin (ROBITUSSIN AC) 10-100 mg/5 mL syrup Take 5-10 mL by mouthfour times daily as needed for Cough. May cause drowsiness.PAST MEDICAL HISTORYDiagnosis Date- Abdominal pain, right lower quadrant 2009- Asthma 06/12/[address] Elliott- Diarrhea- Dyslipidemia 06/05/2014- Epigastric pain- Fatty liver 06/13/2014- Hypertension- MVP (mitral valve prolapse)- Polycystic ovaries- Pulmonary HTN Seeing Dr. Campbell- Routine gynecological examination Sees Dr. Dhillon SURGICAL HISTORYProcedure Laterality Date- *STRESS TEST PC 02/2015 NL- APPENDECTOMY 14y/o open case- CARPAL TUNNEL [id number]- COLONOSCOP W/ OR W/O [facility] [email or web address]] SPEC 08/05/15 Colonoscopy out pt [facility]- EGD W/O OR W/BRUSH/WASH 08/05/15 EGD out pt [facility]- LAPAROSCOPIC CHOLEYCYSTECTOMY [id number] Cholecystectomy, lap- PAST SURGICAL HISTORY OF 02/2014 right meniscus repair- PAST SURGICAL HISTORY OF 01/18/2017 right medial meniscal tear repairFAMILY HISTORYProblem Relation Age of Onset- crohns [Other] [OTHER] Sister- Diabetes Father- Breast Cancer Maternal Grandmother- Colon Cancer Maternal Uncle- Heart Maternal Uncle- Heart Maternal Grandmother- Diabetes Maternal Grandmother- Parkinson [Other] [OTHER] Mother- Coronary Artery Disease Father 51- Coronary Artery Disease Maternal Uncle first in late sSocial History Marital status: Single Spouse name: Years of education: Number of children:Occupational HistoryOccupation Employer [employer] 12 years, quit 07/2013Unemployed Since 07/2013Social History Main Topics Smoking status: Never Smoker Smokeless status: Never Used Comment: Father smoked in childhood home. Alcohol use: Yes Comment: 3-4 at time twice a year, mixed drinks Drug use: No Sexual activity: Not Currently control/protection: CondomREVIEW OF SYSTEMS: General: No chills, fever, weight loss, night sweats.SHEENT: No change in vision or auditory acuity. Respiratory: No productivecough. Cardiac: As noted above. GI: No melena. : No dysuria.Musculoskeletal: No myalgias. Neurologic: No strokes. Psychiatric: Nodepression. Endocrine: Type 2 diabetes. Hematologic: No anemia.PHYSICAL EXAMINATION: S/he is alert and in no distressVITAL SIGNS: BP 121/85 Pulse 110 Wt 308 lb 8 oz (139.9kg) LMP 09/02/2015SHEENT: Skin is warm and dry. Pupils are round and reactive. Retinal vesselsare grossly unremarkable. No xanthelasmas appreciated. Pharynx is benign.There is no oral cyanosis. Neck: supple. No adenopathy. There may be diffusethyroid enlargement. Chest: Clear to percussion and auscultation. Trachea ismidline. Air entry is equal. There is no chest wall tenderness. Cardiac:Regular rhythm. S1 and S2 are normal. PMI is nondisplaced. There is a softsystolic ejection murmur. No click is heard. Carotids are brisk withoutbruits. JVP is less than 10 cm. Abdomen: Soft and nontender. Obesity limitsexamination. There are no pulsatile masses or bruits. No liver enlargement.Bowel sounds are active. : Deferred. Extremities: Trace edema. Pulses areintact and symmetrical. No clubbing or cyanosis. No femoral bruits.Neurologic: Grossly normal motor and sensory. S/he is alert and oriented x4.Musculoskeletal: No joint deformities.Prior records were reviewed. Angiogram showed no coronary disease. LVEDP was 18and pulmonary pressure was mildly elevated at 40.Echocardiogram showed normal right ventricular function. No tricuspidinsufficiency could be detected to estimate RVSP. Follow-up echocardiogram hasbeen requested but not performed.Carotid Doppler examination shows no significant stenosis.Recent laboratory studies were reviewed. TSH has not been done in recent past.Renal function is normal. LDL was 96.EKG demonstrates sinus tachycardia and is otherwise normal. There is nosignificant change.Electronically Signed:Cristi Campbell, [facility] 2017 4:31 PMC: Kraig Soto MD 01/31/2018 4:32 PM SignedLIFESTYLE CHANGEA healthy lifestyle is the most important component of your overall treatmentplan. Please give serious thought to the following areas and commit to makinglong term changes.EAT A WHOLE FOOD, PLANT BASED DIETThe nutrition your body gets is more important than the medicine you take.What matters most is the overall way you eat. We encourage you to minimize theuse of animal products (which include dairy and all meats except fatty fish)and use whole, unprocessed plant foods to provide your protein, vitamins andother nutrients. We have a lot of information to share with you on this topic. We also hold Shared Medical Appointments, where you can come visit with in the company of other patients and spend over an hour talking aboutthe challenges of changing the way you eat. This is not a ANDquot;dietANDquot;.It is a way of life that you will keep with you.EXERCISE REGULARLYIt is not important to spend hours in the gym, lifting weights and perspiringheavily. A total of 2-3 hours per week of aerobic (causing you to bemoderately short of breath) exercise is sufficient to improve your health.Talk to us before you begin a new exercise program, if you have heart diseaseor experience shortness of breath or chest pain.REDUCE STRESSChronic emotional and physical stress leads to disease. Ways of reducingstress include meditation, visualization, prayer, yoga and other forms ofrelaxation therapy. Consistency is the phillip. Find a technique that works foryou and do it every day.CULTIVATE RELATIONSHIPSLoneliness and isolation have a major negative impact on health. Seek outothers who can love, care for and nurture you. Avoid hurtful relationships.MAINTAIN IDEAL BODY WEIGHTThe best way to do this is to do all the things above. Our bodies naturallyfind the right weight if we keep moving and feed ourselves the right food. Ifyour BMI is greater than 25, we strongly recommend a referral to a weightmanagement program. Please speak to us or your family physician aboutavailable programs.AVOID NICOTINE IN ALL FORMSThis includes all tobacco products, whether chewed, smoked, vaped, or rubbed onthe skin. Smoking cessation programs, which can make use of tobaccosubstitutes, medications to suppress cravings and behavior management, areavailable. Please contact your family physician about programs in your area.Rob Murray, RN, RN 02/01/2018 9:41 AM SignedCopy of OV note faxed to [facility] @ [phone] Provider: CRISTI CAMPBELL [[id number]]Allergies As of Date: 01/31/2018 Noted Allergy ReactionTORADOL (KETOROLAC) 03/06/2014 12 - Shortness of Breath Comments: Elevates BP; dyspneaACTOS (PIOGLITAZONE HCL) 11/15/2016 14 - Other: See Comments Comments: Sweats and chillsEGGS (EGG) 08/28/2013 8 - GI UpsetFENOFIBRATE 07/27/2017 8 - GI UpsetLIPITOR (ATORVASTATIN) 11/09/2015 17 - MyalgiaPRAVACHOL (PRAVASTATIN SODIUM) 07/27/2017 8 - GI UpsetZOLOFT (SERTRALINE HCL) 01/02/2016 14 - Other: See Comments Comments: suicidal.PENICILLINS 12/28/2007 4 - Hives Comments: Childhood.Date Reviewed: 01/31/2018Reviewed by: Akua Berry) Cornelius - Fully AssessedReason for Visit: Recheck [92]Primary Visit Diagnosis:Preop cardiovascular exam [Z01.810] Other Visit Diagnosis:Pulmonary HTN [I27.20]Order(s):ECG B/O W INTERP (MED OFFICE) [ECG06] Order #: [id number] TSH BLD [SQTSH] Order #: [id number] FUTURE ECHO [622170] Order #: [id number]: 1 FUTUREPrescriptions as of 01/31/2018 Sig: LORAZEPAM 1 MG TABLET Take 1/2-1 tab in a day as ne* METFORMIN ER 500 MG TABLET,EX* Take 2 tablets by mouth twice* ALOGLIPTIN 25 MG TABLET TAKE 1 TABLET EVERY DAY SPIRONOLACTONE 50 MG TABLET Take 1 tablet by mouth once d* FUROSEMIDE 40 MG TABLET Take 1 tablet by mouth once d* CYCLOBENZAPRINE 10 MG TABLET Take 1 tablet by mouth three * BUPROPION HCL 100 MG TABLET Take one tab by mouth three t* NADOLOL 40 MG TABLET Take 1 tablet by mouth twice * BUSPIRONE 15 MG TABLET TAKE 1 TABLET BY MOUTH THREE * FLUTICASONE 50 MCG/ACTUATION * Use 2 Sprays in each nostril * ALBUTEROL SULFATE HFA 90 MCG/* Inhale 2 Puffs as instructed * OMEPRAZOLE 40 MG CAPSULE,FRANCI* Take 1 capsule by mouth once * CODEINE 10 MG-GUAIFENESIN 100* Take 5-10 mL by mouth four ti*Problem List As Of Date 01/31/2018 Noted Resolved Abdominal pain, right lower quadrant [R10.31] INVALID FOR*01/18/2013 Abnormal glandular Papanicolaou smear of cervix*INVALID FOR* Priority: C PCOS (polycystic ovarian syndrome) [E28.2] INVALID FOR* Priority: C DUB (dysfunctional uterine bleeding) [N93.8] INVALID FOR* Priority: C MVP (mitral valve prolapse) [I34.1] Priority: B Pulmonary HTN (HCC) [I27.20] Priority: A More... Routine gynecological examination [Z01.419] Priority: D More... Dyslipidemia [E78.5] INVALID FOR* Priority: A More... Fatty liver [K76.0] INVALID FOR* Priority: B Morbid obesity (HCC) [E66.01] INVALID FOR*07/13/2017 Priority: B Elevated LFTs [R79.89] INVALID FOR* Priority: B Gastroesophageal reflux disease without esophag*INVALID FOR* Priority: A More... PTSD (post-traumatic stress disorder) [F43.10] INVALID FOR* Priority: A Generalized anxiety disorder [F41.1] INVALID FOR* Priority: A Essential hypertension with goal blood pressure*INVALID FOR* Priority: A Controlled type 2 diabetes mellitus without com*INVALID FOR* Priority: A Mild intermittent asthma without complication [*INVALID FOR* Priority: A Moderate episode of recurrent major depressive *INVALID FOR* Priority: A Current use of proton pump inhibitor [Z79.899] INVALID FOR* More... Morbid obesity with body mass index (BMI) of 45*INVALID FOR* Priority: B Neck pain on left side [M54.2] INVALID FOR* Muscle spasm [M62.838] INVALID FOR* Large breasts [N62] INVALID FOR* Other instructions from your clinician: LIFESTYLE CHANGE A healthy lifestyle is the most important component of your overall treatment plan. Please give serious thought to the following areas and commit to making long chain beamer changes. EAT A WHOLE FOOD, PLANT BASED DIET The nutrition your body gets is more important than the medicine you take. What matters most is the overall way you eat. We encourage you to minimize the use of animal products (which include dairy and all meats except fatty fish) and use whole, unprocessed plant foods to provide your protein, vitamins and other nutrients. We have a lot of information to share with you on this topic. We also hold Shared Medical Appointments, where you can come visit with Dr. Campbell in the company of other patients and spend over an hour talking about the challenges of changing the way you eat. This is not a diet. It is a way of life that you will keep with you. EXERCISE REGULARLY It is not important to spend hours in the gym, lifting weights and perspiring heavily. A total of 2-3 hours per week of aerobic (causing you to be moderately short of breath) exercise is sufficient to improve your health. Talk to us before you begin a new exercise program, if you have heart disease or experience shortness of breath or chest pain. REDUCE STRESS Chronic emotional and physical stress leads to disease. Ways of reducing stress include meditation, visualization, prayer, yoga and other forms of relaxation therapy. Consistency is the phillip. Find a technique that works for you and do it every day. CULTIVATE RELATIONSHIPS Loneliness and isolation have a major negative impact on health. Seek out others who can love, care for and nurture you. Avoid hurtful relationships. MAINTAIN IDEAL BODY WEIGHT The best way to do this is to do all the things above. Our bodies naturally find the right weight if we keep moving and feed ourselves the right food. If your BMI is greater than 25, we strongly recommend a referral to a weight management program. Please speak to us or your family physician about available programs. AVOID NICOTINE IN ALL FORMS This includes all tobacco products, whether chewed, smoked, vaped, or rubbed on the skin. Smoking cessation programs, which can make use of tobacco substitutes, medications to suppress cravings and behavior management, are available. Please contact your family physician about programs in your area.Visit Notes:>> Rob (Mann) MANN Murray Erum Feb 01, 2018 9:41 AM Status: SignedCopy of OV note faxed to Dr. Nhan Montelongo with [facility] @ [phone]-up and Disposition History RecordedEncounter Number: [id number] Status:Closed by CRISTI CAMPBELL MD on 01/31/18 Normal [facility] PROGRESSon 01-31-2018 PROGRESS HNO ID: [id number] thor: Cristi Garibay: (none)Author Type: PhysicianType: Progress NotesFiled: 01/31/2018 5:17 PMNote Text:PERTINENT CARDIAC HISTORYPulmonary HTN - mildObesityHLOSA? - negative sleep studiesCP - normal coronaries by cathHTNDMADHERENCE TO GUIDELINESACE-I or ARB for HF with prior LVEF<40 (NQF 0081) - N/AASA or Plavix for ASHD (NQF 0067) - N/ABeta diane for ASHD with prior AR or prior LVEF<40 (NQF 0070) - N/ABeta diane for HF with prior LVEF<40 (NQF 0083) - N/AACE-I or ARB for ASHD with DM or prior LVEF<40 (NQF 0066) - N/AStatin therapy for ASHD or FHL or DM - N/ABMI documented and plan if >25 (NQF 0421) - lifestyle recommendation formTobacco use screening and referral (NQF 0028) - lifestyle recommendationformRecommend ation for whole food, plant based diet - lifestyle recommendationformCLINICAL IMPRESSION/PLAN:Lukasz Diaz has good exercise tolerance. She is committed to continuingto lose weight and I encouraged her to continue exercise. Her coronarieswere documented to be normal in the past and she is having no symptoms tosuggest ischemia. There is no evidence of decompensated heart failure orarrhythmia. Risk of perioperative cardiac complications is low for theprocedure anticipated, and no further testing is required prior tosurgery. I have recommended that we update her echocardiogram to assessher right heart function and pulmonary pressures. This could be done nextweek prior to her surgery.She has been tested twice in the past for sleep apnea and reports thatthese were normal. Her pulmonary hypertension is mild and likely relatedto her obesity. D-dimer in the past was in the normal range. There is noevidence of collagen vascular disease, although she has a chronic facialrash.She's been advised to make sure she stays on nadolol up to the time of hersurgery. I've given her a prescription for a TSH level to be done with herpreoperative labs.I have offered her a follow-up visit for 8 months.Thank you for asking me to see and make recommendations on Lukasz Diaz. This report will be faxed and mailed to you. Recommendations will beupdated following performance of the echocardiogram.Written and verbal health teaching given to patient, patient verbalizesunderstanding and agrees with treatment plan.This note was generated using [employer] voice recognition system, and theremay be some incorrect words, spellings, and punctuation that were notnoted in checking the note before saving.DIAGNOSIS FOR VISIT:Preoperative cardiac risk assessmentPulmonary hypertensionHISTORY OF PRESENT ILLNESSLukasz Diaz is a 37-year-old woman who is seen in consultation at [facility] of Dr. Montelongo for preoperative risk assessment prior to bilateralreduction mammoplasty. She has prior history of mild pulmonaryhypertension.She was previously seen in the office several years ago. She had undergoneright and left heart cath with findings of mild pulmonary hypertension andslight elevation of LVEDP. Her coronaries were normal. She had atypicalchest pain, which has subsequently resolved.She reports that she has lost almost 50 pounds over the last severalyears. She is exercising regularly and has just joined [employer]. Shewalks on a treadmill at 3 miles per hour at a 1-2% grade and she routinelyexceeds 5 METs of activity with her housework. She reports that she canwalk up 2 flights of steps without stopping. She has recently undergonehysterectomy without complication. She denies orthopnea. She's had noedema, syncope, TIAs, amaurosis or claudication. She has had nopalpitations.She recently ran out of her nadolol. She took a dose today but had missedseveral days. Typically her heart rate runs in the eighties.ALLERGIES:ALLERGIE SAllergen Reactions- Toradol [Ketorolac] Shortness of Breath Elevates BP; dyspnea- Actos [Pioglitazone* Other: See Comments Sweats and chills- Eggs [Egg] GI Upset- Fenofibrate GI Upset- Lipitor [Atorvastat* Myalgia- Pravachol [Pravasta* GI Upset- Zoloft [Sertraline * Other: See Comments suicidal.- Penicillins Hives Childhood.CURRENT OUTPATIENT MEDICATIONS:LORazepam (ATIVAN) 1 mg tablet Take 1/2-1 tab in a day as needed.metFORMIN ER (GLUCOPHAGE XR) 500 mg 24 hr tablet Take 2 tablets by mouthtwice daily.alogliptin 25 mg tab TAKE 1 TABLET EVERY DAYspironolactone (ALDACTONE) 50 mg tablet Take 1 tablet by mouth once daily.furosemide (LASIX) 40 mg tablet Take 1 tablet by mouth once daily.cyclobenzaprine (FLEXERIL) 10 mg tablet Take 1 tablet by mouth three timesdaily as needed for Muscle Spasm (muscle pain, tightness in left neckregion).buPROPion (WELLBUTRIN) 100 mg tablet Take one tab by mouth three times aday.nadolol (CORGARD) 40 mg tablet Take 1 tablet by mouth twice daily.busPIRone (BUSPAR) 15 mg tablet TAKE 1 TABLET BY MOUTH THREE TIMES DAILYfluticasone (FLONASE) 50 mcg/actuation nasal spray Use 2 Sprays in eachnostril once daily.albuterol HFA (VENTOLIN HFA) 90 mcg/actuation inhaler Inhale 2 Puffs asinstructed every 6 hours as needed.Omeprazole 40 mg capsule Take 1 capsule by mouth once daily.codeine-guaiFENesin (ROBITUSSIN AC) 10-100 mg/5 mL syrup Take 5-10 mL bymouth four times daily as needed for Cough. May cause drowsiness.PAST MEDICAL HISTORYDiagnosis Date- Abdominal pain, right lower quadrant 2009- Asthma 06/12/[address] Elliott- Diarrhea- Dyslipidemia 06/05/2014- Epigastric pain- Fatty liver 06/13/2014- Hypertension- MVP (mitral valve prolapse)- Polycystic ovaries- Pulmonary HTN Seeing Dr. Campbell- Routine gynecological examination Sees Dr. Dhillon SURGICAL HISTORYProcedure Laterality Date- *STRESS TEST PC 02/2015 NL- APPENDECTOMY 14y/o open case- CARPAL TUNNEL [id number]- [facility]- EGD W/O OR W/BRUSH/WASH 08/05/15 EGD out pt [facility]- LAPAROSCOPIC CHOLEYCYSTECTOMY [id number] Cholecystectomy, lap- PAST SURGICAL HISTORY OF 02/2014 right meniscus repair- PAST SURGICAL HISTORY OF 01/18/2017 right medial meniscal tear repairFAMILY HISTORYProblem Relation Age of Onset- crohns [Other] [OTHER] Sister- Diabetes Father- Breast Cancer Maternal Grandmother- Colon Cancer Maternal Uncle- Heart Maternal Uncle- Heart Maternal Grandmother- Diabetes Maternal Grandmother- Parkinson [Other] [OTHER] Mother- Coronary Artery Disease Father 51- Coronary Artery Disease Maternal Uncle first in late 30'sSocial History Marital status: Single Spouse name: Years of education: Number of children:Occupational HistoryOccupation Employer [employer] 12 years, quit 07/2013Unemployed Since 07/2013Social History Main Topics Smoking status: Never Smoker Smokeless status: Never Used Comment: Father smoked in childhood home. Alcohol use: Yes Comment: 3-4 at time twice a year, mixed drinks Drug use: No Sexual activity: Not Currently control/protection: CondomREVIEW OF SYSTEMS: General: No chills, fever, weight loss, night sweats. SHEENT: No change in vision or auditory acuity. Respiratory: Noproductive cough. Cardiac: As noted above. GI: No melena. : Nodysuria. Musculoskeletal: No myalgias. Neurologic: No strokes.Psychiatric: No depression. Endocrine: Type 2 diabetes. Hematologic: Noanemia.PHYSICAL EXAMINATION: S/he is alert and in no distressVITAL SIGNS: BP 121/85 Pulse 110 Wt 308 lb 8 oz (139.9kg) LMP1SHEENT: Skin is warm and dry. Pupils are round and reactive. Retinalvessels are grossly unremarkable. No xanthelasmas appreciated. Pharynxis benign. There is no oral cyanosis. Neck: supple. No adenopathy.There may be diffuse thyroid enlargement. Chest: Clear to percussion andauscultation. Trachea is midline. Air entry is equal. There is no chestwall tenderness. Cardiac: Regular rhythm. S1 and S2 are normal. PMI isnondisplaced. There is a soft systolic ejection murmur. No click isheard. Carotids are brisk without bruits. JVP is less than 10 cm.Abdomen: Soft and nontender. Obesity limits examination. There are nopulsatile masses or bruits. No liver enlargement. Bowel sounds areactive. : Deferred. Extremities: Trace edema. Pulses are intact andsymmetrical. No clubbing or cyanosis. No femoral bruits. Neurologic:Grossly normal motor and sensory. S/he is alert and oriented x4.Musculoskeletal: No joint deformities.Prior records were reviewed. Angiogram showed no coronary disease. LVEDPwas 18 and pulmonary pressure was mildly elevated at 40.Echocardiogram showed normal right ventricular function. No tricuspidinsufficiency could be detected to estimate RVSP. Follow-up echocardiogramhas been requested but not performed.Carotid Doppler examination shows no significant stenosis.Recent laboratory studies were reviewed. TSH has not been done in recentpast. Renal function is normal. LDL was 96.EKG demonstrates sinus tachycardia and is otherwise normal. There is nosignificant change.Electronically Signed:Cristi Campbell, [facility] 2017 4:31 PMCC: Francesco Mandujano MD [facility] Vital Signs Date Time Vital Sign Value Performing Clinician Facility 09-22-2025 18:13-0500 Diastolic Blood Pressure Non-Invasive 84 mm[Hg] DR ASHLEY BARRIOS MD [facility] 09-22-2025 18:13-0500 Heart rate 87 /min DR AHSLEY BARRIOS MD [facility] 09-22-2025 18:13-0500 Respiratory rate 16 /min DR ASHLEY BARRIOS MD [facility] 09-22-2025 18:13-0500 Systolic Blood Pressure Non-Invasive 126 mm[Hg] DR ASHLEY BARRIOS MD [facility] 09-22-2025 15:47-0500 Diastolic Blood Pressure Non-Invasive 78 mm[Hg] DR ASHLEY BARRIOS MD [facility] 09-22-2025 15:47-0500 Heart rate 88 /min DR ASHLEY BARRIOS MD [facility] 09-22-2025 15:47-0500 Respiratory rate 16 /min DR ASHLEY BARRIOS MD [facility] 09-22-2025 15:47-0500 Systolic Blood Pressure Non-Invasive 118 mm[Hg] DR ASHLEY BARRIOS MD [facility] 09-22-2025 13:54-0500 Body height 175.[address] ASHLEY BARRIOS MD [facility] 09-22-2025 13:54-0500 Body temperature 98.6 [degF] DR ASHLEY BARRIOS MD [facility] 09-22-2025 13:54-0500 Body weight 109.[address] ASHLEY BARRIOS MD [facility] 09-22-2025 13:54-0500 Diastolic Blood Pressure Non-Invasive 89 mm[Hg] DR ASHLEY BARRIOS MD [facility] 09-22-2025 13:54-0500 Heart rate 86 /min DR ASHLEY BARRIOS MD [facility] 09-22-2025 13:54-0500 Respiratory rate 16 /min DR ASHLEY BARRIOS MD [facility] 09-22-2025 13:54-0500 Systolic Blood Pressure Non-Invasive 131 mm[Hg] DR ASHLEY BARRIOS MD [facility] 08-05-2025 16:15-0400 Body temperature 98.6 [degF] Dr. Esteban Ware MD Work Phone: [facility] 08-05-2025 16:15-0400 Diastolic blood pressure 74 mm[Hg] Dr. Esteban Ware MD Work Phone: [facility] 08-05-2025 16:15-0400 Heart rate 71 /min Dr. Esteban Ware MD Work Phone: [facility] 08-05-2025 16:15-0400 Respiratory rate 14 /min Dr. Esteban Ware MD Work Phone: [facility] 08-05-2025 16:15-0400 SaO2% (BldA) [Mass fraction] 99 % Dr. Esteban Ware MD Work Phone: [facility] 08-05-2025 16:15-0400 Systolic blood pressure 117 mm[Hg] Dr. Esteban Ware MD Work Phone: [facility] 08-05-2025 12:39-0400 Body height 175.[address] Esteban Ware MD Work Phone: [facility] 08-05-2025 12:39-0400 Body mass index (BMI) [Ratio] 35.6 kg/m2 Dr. Esteban Ware MD Work Phone: [facility] 08-05-2025 12:39-0400 Body weight 109.[address] Esteban Ware MD Work Phone: [facility] 07-31-2025 10:31-0400 Body height 175.[address] Esteban Ware MD Work Phone: [facility] 07-31-2025 10:31-0400 Body mass index (BMI) [Ratio] 36 kg/m2 Dr. Esteban Ware MD Work Phone: [facility] 07-31-2025 10:31-0400 Body temperature 96.8 [degF] Dr. Esteban Ware MD Work Phone: [facility] 07-31-2025 10:31-0400 Body weight 110.[address] Esteban Ware MD Work Phone: [facility] 07-31-2025 10:31-0400 Diastolic blood pressure 80 mm[Hg] Dr. Esteban Ware MD Work Phone: [facility] 07-31-2025 10:31-0400 Heart rate 84 /min Dr. Esteban Ware MD Work Phone: [facility] 07-31-2025 10:31-0400 Respiratory rate 18 /min Dr. Esteban Ware MD Work Phone: [facility] 07-31-2025 10:31-0400 SaO2% (BldA) [Mass fraction] 98 % Dr. Esteban Ware MD Work Phone: [facility] 07-31-2025 10:31-0400 Systolic blood pressure 126 mm[Hg] Dr. Esteban Ware MD Work Phone: [facility] 07-17-2025 12:59-0400 Body temperature 97.5 [degF] Dr. Esteban Ware MD Work Phone: [facility] 07-17-2025 12:59-0400 Diastolic blood pressure 98 mm[Hg] Dr. Esteban Ware MD Work Phone: [facility] 07-17-2025 12:59-0400 Heart rate 87 /min Dr. Esteban Ware MD Work Phone: [facility] 07-17-2025 12:59-0400 Respiratory rate 18 /min Dr. Esteban Ware MD Work Phone: [facility] 07-17-2025 12:59-0400 SaO2% (BldA) [Mass fraction] 100 % Dr. Esteban Ware MD Work Phone: [facility] 07-17-2025 12:59-0400 Systolic blood pressure 133 mm[Hg] Dr. Esteban Ware MD Work Phone: [facility] 07-17-2025 11:17-0400 Body height 175.[address] Esteban Ware MD Work Phone: [facility] 07-17-2025 11:17-0400 Body mass index (BMI) [Ratio] 35.7 kg/m2 Dr. Esteban Ware MD Work Phone: [facility] 07-17-2025 11:17-0400 Body weight 109.[address] Esteban Ware MD Work Phone: [facility] 06-26-2025 14:53-0400 Body height 175.[address] Esteban Ware MD Work Phone: [facility] 06-26-2025 14:53-0400 Body mass index (BMI) [Ratio] 35.9 kg/m2 Dr. Esteban Ware MD Work Phone: [facility] 06-26-2025 14:53-0400 Body temperature 97.2 [degF] Dr. Esteban Ware MD Work Phone: [facility] 06-26-2025 14:53-0400 Body weight 110.[address] Esteban Ware MD Work Phone: [facility] 06-26-2025 14:53-0400 Diastolic blood pressure 76 mm[Hg] Dr. Esteban Ware MD Work Phone: [facility] 06-26-2025 14:53-0400 Heart rate 74 /min Dr. Esteban Ware MD Work Phone: [facility] 06-26-2025 14:53-0400 Respiratory rate 14 /min Dr. Esteban Ware MD Work Phone: [facility] 06-26-2025 14:53-0400 SaO2% (BldA) [Mass fraction] 98 % Dr. Esteban Ware MD Work Phone: [facility] 06-26-2025 14:53-0400 Systolic blood pressure 114 mm[Hg] Dr. Esteban Ware MD Work Phone: [facility] 06-12-2025 15:38-0400 Body height 175.[address] Esteban Ware MD Work Phone: [facility] 06-12-2025 15:38-0400 Body mass index (BMI) [Ratio] 35.4 kg/m2 Dr. Esteban Ware MD Work Phone: [facility] 06-12-2025 15:38-0400 Body temperature 96.6 [degF] Dr. Esteban Ware MD Work Phone: [facility] 06-12-2025 15:38-0400 Body weight 109.[address] Esteban Ware MD Work Phone: [facility] 06-12-2025 15:38-0400 Diastolic blood pressure 78 mm[Hg] Dr. Esteban Ware MD Work Phone: [facility] 06-12-2025 15:38-0400 Heart rate 76 /min Dr. Esteban Ware MD Work Phone: [facility] 06-12-2025 15:38-0400 Respiratory rate 16 /min Dr. Esteban Ware MD Work Phone: [facility] 06-12-2025 15:38-0400 SaO2% (BldA) [Mass fraction] 99 % Dr. Esteban Ware MD Work Phone: [facility] 06-12-2025 15:38-0400 Systolic blood pressure 130 mm[Hg] Dr. Esteban Ware MD Work Phone: [facility] 06-04-2025 12:30-0400 Body mass index (BMI) [Ratio] 35.23 kg/m2 [facility] LEAD INFRASTRUCTURE ARCHITECT.MAT MAN Work Phone: [facility] 06-04-2025 12:30-0400 Body temperature 97.5 [degF] [facility] LEAD INFRASTRUCTURE ARCHITECT.MAT MAN Work Phone: [facility] 06-04-2025 12:30-0400 Body weight 108.2 kg [facility] LEAD INFRASTRUCTURE ARCHITECT.MAT MAN Work Phone: [facility] 06-04-2025 12:30-0400 Diastolic blood pressure 72 mm[Hg] [facility] LEAD INFRASTRUCTURE ARCHITECT.MAT MAN Work Phone: [facility] 06-04-2025 12:30-0400 Heart rate 96 /min [facility] LEAD INFRASTRUCTURE ARCHITECT.MAT MAN Work Phone: [facility] 06-04-2025 12:30-0400 Respiratory rate 18 /min [facility] LEAD INFRASTRUCTURE ARCHITECT.MAT MAN Work Phone: [facility] 06-04-2025 12:30-0400 SaO2% (BldA) [Mass fraction] 97 % [facility] LEAD INFRASTRUCTURE ARCHITECT.MAT MAN Work Phone: [facility] 06-04-2025 12:30-0400 Systolic blood pressure 110 mm[Hg] [facility] LEAD INFRASTRUCTURE ARCHITECT.MAT MAN Work Phone: [facility] 05-01-2025 10:47-0400 Body height 175.[address] Esteban Ware MD Work Phone: [facility] 05-01-2025 10:47-0400 Body mass index (BMI) [Ratio] 35.1 kg/m2 Dr. Esteban Ware MD Work Phone: [facility] 05-01-2025 10:47-0400 Body temperature 96.8 [degF] Dr. Esteban Ware MD Work Phone: [facility] 05-01-2025 10:47-0400 Body weight 107.[address] Esteban Ware MD Work Phone: [facility] 05-01-2025 10:47-0400 Diastolic blood pressure 80 mm[Hg] Dr. Esteban Ware MD Work Phone: [facility] 05-01-2025 10:47-0400 Heart rate 72 /min Dr. Esteban Ware MD Work Phone: [facility] 05-01-2025 10:47-0400 Respiratory rate 16 /min Dr. Esteban Ware MD Work Phone: [facility] 05-01-2025 10:47-0400 SaO2% (BldA) [Mass fraction] 99 % Dr. Esteban Ware MD Work Phone: [facility] 05-01-2025 10:47-0400 Systolic blood pressure 128 mm[Hg] Dr. Esteban Ware MD Work Phone: [facility] 04-09-2025 09:58-0400 Body height 175.3 cm Coleen JEWELL Work Phone: [facility] 04-09-2025 09:58-0400 Body mass index (BMI) [Ratio] 35.59 kg/m2 Coleen JEWELL Work Phone: [facility] 04-09-2025 09:58-0400 Body temperature 97.3 [degF] Coleen JEWELL Work Phone: [facility] 04-09-2025 09:58-0400 Body weight 109.32 kg Coleen JEWELL Work Phone: [facility] 04-09-2025 09:58-0400 Diastolic blood pressure 78 mm[Hg] Coleen JEWELL Work Phone: [facility] 04-09-2025 09:58-0400 Heart rate 75 /min Coleen JEWELL Work Phone: [facility] 04-09-2025 09:58-0400 Respiratory rate 18 /min Surekhanery JEWELL Work Phone: [facility] 04-09-2025 09:58-0400 SaO2% (BldA) [Mass fraction] 99 % Yifandejahnery JEWELL Work Phone: [facility] 04-09-2025 09:58-0400 Systolic blood pressure 110 mm[Hg] Coleen Dheeraj JEWELL Work Phone: [facility] 01-09-2025 14:50-0500 Body height 175.[address] Esteban Ware MD Work Phone: [facility] 01-09-2025 14:50-0500 Body mass index (BMI) [Ratio] 36 kg/m2 Dr. Esteban Ware MD Work Phone: [facility] 01-09-2025 14:50-0500 Body temperature 98.2 [degF] Dr. Esteban Ware MD Work Phone: [facility] 01-09-2025 14:50-0500 Body weight 110.[address] Esteban Ware MD Work Phone: [facility] 01-09-2025 14:50-0500 Diastolic blood pressure 74 mm[Hg] Dr. Esteban Ware MD Work Phone: [facility] 01-09-2025 14:50-0500 Heart rate 76 /min Dr. Esteban Ware MD Work Phone: [facility] 01-09-2025 14:50-0500 Respiratory rate 18 /min Dr. Esteban Ware MD Work Phone: [facility] 01-09-2025 14:50-0500 SaO2% (BldA) [Mass fraction] 99 % Dr. Esteban Ware MD Work Phone: [facility] 01-09-2025 14:50-0500 Systolic blood pressure 118 mm[Hg] Dr. Esteban Ware MD Work Phone: [facility] 11-27-2024 13:50-0500 Body height 175.3 cm Coleen JEWELL Work Phone: [facility] 11-27-2024 13:50-0500 Body mass index (BMI) [Ratio] 35.88 kg/m2 Coleen JEWELL Work Phone: [facility] 11-27-2024 13:50-0500 Body weight 110.22 kg Coleen JEWELL Work Phone: [facility] 11-27-2024 13:50-0500 Diastolic blood pressure 70 mm[Hg] Coleen JEWELL Work Phone: [facility] 11-27-2024 13:50-0500 Heart rate 83 /min Coleen JEWELL Work Phone: [facility] 11-27-2024 13:50-0500 SaO2% (BldA) [Mass fraction] 96 % Coleen JEWELL Work Phone: [facility] 11-27-2024 13:50-0500 Systolic blood pressure 112 mm[Hg] Coleen JEWELL Work Phone: [facility] 09-30-2024 19:40-0500 Body mass index (BMI) [Ratio] 35.62 kg/m2 Jose Raul Boone APRN.MAT MAN Work Phone: [facility] 09-30-2024 19:40-0500 Body temperature 98.1 [degF] Jose Raul Boone APRN.MAT MAN Work Phone: [facility] 09-30-2024 19:40-0500 Body weight 109.4 kg Jose Raul Boone APRN.MAT MAN Work Phone: [facility] 09-30-2024 19:40-0500 Diastolic blood pressure 64 mm[Hg] Jose Raul Boone APRN.MAT MAN Work Phone: [facility] 09-30-2024 19:40-0500 Heart rate 88 /min Jose Raul Boone APRN.MAT MAN Work Phone: [facility] 09-30-2024 19:40-0500 Respiratory rate 16 /min Jose Raul Boone APRN.MAT MAN Work Phone: [facility] 09-30-2024 19:40-0500 SaO2% (BldA) [Mass fraction] 99 % Jose Raul Boone APRN.MAT MAN Work Phone: [facility] 09-30-2024 19:40-0500 Systolic blood pressure 100 mm[Hg] Jose Raul Boone APRN.MAT MAN Work Phone: [facility] 07-16-2024 14:17-0400 Body height 175.[address] Work Phone: [facility] 07-16-2024 14:17-0400 Body mass index (BMI) [Ratio] 35.15 kg/m2 Diana Santa RD Work Phone: [facility] 07-16-2024 14:17-0400 Body weight 107.[address] Work Phone: [facility] 06-27-2024 14:35-0400 Body height 175.3 cm Louise Espino MD Work Phone: [facility] 06-27-2024 14:35-0400 Body mass index (BMI) [Ratio] 36.46 kg/m2 Louise Espino MD Work Phone: [facility] 06-27-2024 14:35-0400 Body weight 111.99 kg Louise Espino MD Work Phone: [facility] 06-27-2024 14:35-0400 Diastolic blood pressure 80 mm[Hg] Louise Espino MD Work Phone: [facility] 06-27-2024 14:35-0400 Systolic blood pressure 132 mm[Hg] Louise Espino MD Work Phone: [facility] 03-26-2024 13:56-0400 Diastolic blood pressure 88 mm[Hg] Oumou Haagen LEAD INFRASTRUCTURE ARCHITECT.MAT MAN Work Phone: [facility] 03-26-2024 13:56-0400 Heart rate 85 /min Oumou Haagen LEAD INFRASTRUCTURE ARCHITECT.MAT MAN Work Phone: [facility] 03-26-2024 13:56-0400 Respiratory rate 16 /min Uomou Haagen LEAD INFRASTRUCTURE ARCHITECT.MAT MAN Work Phone: [facility] 03-26-2024 13:56-0400 SaO2% (BldA) [Mass fraction] 96 % Oumou Haagen LEAD INFRASTRUCTURE ARCHITECT.MAT MAN Work Phone: [facility] 03-26-2024 13:56-0400 Systolic blood pressure 110 mm[Hg] Oumou Haagen LEAD INFRASTRUCTURE ARCHITECT.MAT MAN Work Phone: [facility] 02-14-2024 11:53-0400 Diastolic blood pressure 82 mm[Hg] Louise Espino MD Work Phone: [facility] 02-14-2024 11:53-0400 Heart rate 66 /min Louise Espino MD Work Phone: [facility] 02-14-2024 11:53-0400 Respiratory rate 16 /min Louise Espino MD Work Phone: [facility] 02-14-2024 11:53-0400 SaO2% (BldA) [Mass fraction] 95 % Louise Espino MD Work Phone: [facility] 02-14-2024 11:53-0400 Systolic blood pressure 122 mm[Hg] Louise Espino MD Work Phone: [facility] 02-14-2024 11:34-0400 Body temperature 98.2 [degF] Louise Espino MD Work Phone: [facility] 02-14-2024 10:40-0400 Body height 175.3 cm Louise Espino MD Work Phone: [facility] 02-14-2024 10:40-0400 Body mass index (BMI) [Ratio] 36.92 kg/m2 Louise Espino MD Work Phone: [facility] 02-14-2024 10:40-0400 Body weight 113.4 kg Louise Espino MD Work Phone: [facility] 01-11-2024 13:45-0500 Body height 174 cm Louise Espino MD Work Phone: [facility] 01-11-2024 13:45-0500 Body weight 116.17 kg Louise Espino MD Work Phone: [facility] 09-04-2023 16:35-0400 Body temperature 98.6 [degF] Francesco Mandujano MD Work Phone: [facility] 09-04-2023 16:35-0400 Body weight 114.31 kg Francesco Mandujano MD Work Phone: [facility] 09-04-2023 16:35-0400 Diastolic blood pressure 64 mm[Hg] Francesco Mandujano MD Work Phone: [facility] 09-04-2023 16:35-0400 Heart rate 88 /min Francesco Mandujano MD Work Phone: [facility] 09-04-2023 16:35-0400 Respiratory rate 18 /min Francesco Mandujano MD Work Phone: [facility] 09-04-2023 16:35-0400 Systolic blood pressure 98 mm[Hg] Francesco Mandujano MD Work Phone: [facility] 08-30-2023 15:34-0400 Diastolic blood pressure 80 mm[Hg] Oumou Posey APRN.CNP Work Phone: [facility] 08-30-2023 15:34-0400 Heart rate 86 /min Oumou Haagen LEAD INFRASTRUCTURE ARCHITECT.MAT MAN Work Phone: [facility] 08-30-2023 15:34-0400 Respiratory rate 16 /min Oumou Haagen LEAD INFRASTRUCTURE ARCHITECT.MAT MAN Work Phone: [facility] 08-30-2023 15:34-0400 SaO2% (BldA) [Mass fraction] 98 % Oumou Haagen LEAD INFRASTRUCTURE ARCHITECT.MAT MAN Work Phone: [facility] 08-30-2023 15:34-0400 Systolic blood pressure 110 mm[Hg] Oumou Haagen LEAD INFRASTRUCTURE ARCHITECT.MAT MAN Work Phone: [facility] 08-28-2023 13:25-0400 Body temperature 97.59 [degF] Francesco Pendjordana LEAD INFRASTRUCTURE ARCHITECT.MAT MAN Work Phone: [facility] 08-28-2023 13:25-0400 Body weight 116.39 kg Francesco Pendjordana LEAD INFRASTRUCTURE ARCHITECT.MAT MAN Work Phone: [facility] 08-28-2023 13:25-0400 Diastolic blood pressure 78 mm[Hg] Francesco Pendlebury LEAD INFRASTRUCTURE ARCHITECT.MAT MAN Work Phone: [facility] 08-28-2023 13:25-0400 Heart rate 80 /min Francesco Pendlebury LEAD INFRASTRUCTURE ARCHITECT.MAT MAN Work Phone: [facility] 08-28-2023 13:25-0400 Respiratory rate 18 /min Francesco Pendlebury LEAD INFRASTRUCTURE ARCHITECT.MAT MAN Work Phone: [facility] 08-28-2023 13:25-0400 SaO2% (BldA) [Mass fraction] 95 % Francesco Pendlejody LEAD INFRASTRUCTURE ARCHITECT.MAT MAN Work Phone: [facility] 08-28-2023 13:25-0400 Systolic blood pressure 111 mm[Hg] Francesco Pendlebury LEAD INFRASTRUCTURE ARCHITECT.MAT MAN Work Phone: [facility] 07-24-2023 17:42-0400 Body temperature 97.5 [degF] Jose Raul Boone LEAD INFRASTRUCTURE ARCHITECT.MAT MAN Work Phone: [facility] 07-24-2023 17:42-0400 Body weight 117.48 kg Jose Raul Boone LEAD INFRASTRUCTURE ARCHITECT.MAT MAN Work Phone: [facility] 07-24-2023 17:42-0400 Diastolic blood pressure 70 mm[Hg] Jose Raul Boone LEAD INFRASTRUCTURE ARCHITECT.MAT MAN Work Phone: [facility] 07-24-2023 17:42-0400 Heart rate 78 /min Jose Raul Boone LEAD INFRASTRUCTURE ARCHITECT.MAT MAN Work Phone: [facility] 07-24-2023 17:42-0400 Respiratory rate 16 /min Jose Raulgraham Boone LEAD INFRASTRUCTURE ARCHITECT.MAT MAN Work Phone: [facility] 07-24-2023 17:42-0400 SaO2% (BldA) [Mass fraction] 95 % Jose Raul Boone LEAD INFRASTRUCTURE ARCHITECT.MAT MAN Work Phone: [facility] 07-24-2023 17:42-0400 Systolic blood pressure 108 mm[Hg] Jose Raul Boone LEAD INFRASTRUCTURE ARCHITECT.MAT MAN Work Phone: [facility] 01-27-2023 15:47-0400 Body temperature 97.9 [degF] Francesco Mandujano MD Work Phone: [facility] 01-27-2023 15:47-0400 Body weight 122.47 kg Francesco Mandujano MD Work Phone: [facility] 01-27-2023 15:47-0400 Diastolic blood pressure 92 mm[Hg] Francesco Mandujano MD Work Phone: [facility] 01-27-2023 15:47-0400 Heart rate 79 /min Francesco Mandujano MD Work Phone: [facility] 01-27-2023 15:47-0400 SaO2% (BldA) [Mass fraction] 96 % Francesco Mandujano MD Work Phone: [facility] 01-27-2023 15:47-0400 Systolic blood pressure 122 mm[Hg] Francesco Mandujano MD Work Phone: [facility] 01-20-2023 20:20-0500 Diastolic Blood Pressure Non-Invasive 86 1 ARNALDO KO MD [facility] 01-20-2023 20:20-0500 Heart rate 82 /min ARNALDO KO MD [facility] 01-20-2023 20:20-0500 Respiratory rate 16 /min ARNALDO KO MD [facility] 01-20-2023 20:20-0500 Systolic Blood Pressure Non-Invasive 122 1 ARNALDO KO MD [facility] 01-20-2023 17:17-0500 Body height 175.3 cm ARNALDO KO MD [facility] 01-20-2023 17:17-0500 Body temperature 98.42 [degF] ARNALDO KO MD [facility] 01-20-2023 17:17-0500 Body weight 120.5 kg ARNALDO KO MD [facility] 01-20-2023 17:17-0500 Diastolic Blood Pressure Non-Invasive 89 1 ARNALDO KO MD [facility] 01-20-2023 17:17-0500 Heart rate 84 /min ARNALDO KO MD [facility] 01-20-2023 17:17-0500 Respiratory rate 18 /min ARNALDO KO MD [facility] 01-20-2023 17:17-0500 Systolic Blood Pressure Non-Invasive 119 1 ARNALDO KO MD [facility] 01-18-2023 15:25-0500 Diastolic blood pressure 86 mm[Hg] [facility] 01-18-2023 15:25-0500 Heart rate 83 /min [facility] 01-18-2023 15:25-0500 Systolic blood pressure 124 mm[Hg] [facility] 01-18-2023 13:45-0500 Body height 175.26 cm [facility] 01-18-2023 13:45-0500 Body mass index (BMI) [Ratio] 39.3 kg/m2 [facility] 01-18-2023 13:45-0500 Body temperature 97.7 [degF] [facility] 01-18-2023 13:45-0500 Body weight 120.74 kg [facility] 01-18-2023 13:45-0500 Respiratory rate 22 /min [facility] 01-18-2023 13:45-0500 SaO2% (BldA) [Mass fraction] 98 % [facility] 10-31-2022 10:51-0500 Body weight 122.47 kg Francesco Mandujano MD Work Phone: [facility] 10-31-2022 10:51-0500 Diastolic blood pressure 82 mm[Hg] Francesco Mandujano MD Work Phone: [facility] 10-31-2022 10:51-0500 Heart rate 76 /min Francesco Mandujano MD Work Phone: [facility] 10-31-2022 10:51-0500 Respiratory rate 16 /min Francesco Mandujano MD Work Phone: [facility] 10-31-2022 10:51-0500 Systolic blood pressure 116 mm[Hg] Francesco Mandujano MD Work Phone: [facility] 03-24-2022 11:24-0400 Body height 174 cm Francesco Mandujano MD Work Phone: [facility] 03-24-2022 11:24-0400 Body weight 117.48 kg Francesco Mandujano MD Work Phone: [facility] 03-24-2022 11:24-0400 Diastolic blood pressure 76 mm[Hg] Francesco Mandujano MD Work Phone: [facility] 03-24-2022 11:24-0400 Heart rate 72 /min Francesco Mandujano MD Work Phone: [facility] 03-24-2022 11:24-0400 Respiratory rate 16 /min Francesco Mandujano MD Work Phone: [facility] 03-24-2022 11:24-0400 Systolic blood pressure 102 mm[Hg] Francesco Mandujano MD Work Phone: [facility] Encounters Encounter Date Encounter Type Care Provider Facility Start: 09-22-2025 End: 09-22-2025 Emergency department patient visit DR ASHLEY BARRIOS MD [facility] Start: 09-22-2025 ambulatory FRANCESCO MANDUJANO Facili ty:[facility] Start: 09-15-2025 End: 09-15-2025 ambulatory FRANCESCO MANDUJANO Facility:[facility] Start: 09-05-2025 End: 09-05-2025 ambulatory FRANCESCO MANDUJANO Facility:[facility] Start: 09-04-2025 End: 09-04-2025 ambulatory FRANCESCO MANDUJANO Facility:[facility] Start: 08-18-2025 End: 08-18-2025 ambulatory FRANCESCO MANDUJANO Facility:[facility] Start: 08-15-2025 End: 08-15-2025 Telephone encounter [facility] Comment on above: Insurance Start: 08-14-2025 ambulatory COLEEN HU Facility:[facility] Start: 08-08-2025 End: 08-08-2025 ambulatory [facility] Facility:[facility] Start: 08-05-2025 End: 08-05-2025 Emergency department patient visit Dr. Joey Hernández DO -Emergency Department Work Phone: Start: 07-31-2025 End: 07-31-[address] Esteban Ware MD -[facility] Work Phone: Start: 07-31-2025 End: 07-31-[address] Esteban Ware MD Work Phone: -[facility] Start: 07-21-2025 End: 07-22-2025 Refill Louise Espino MD Work Phone: [facility] [place] Comment on above: Refill Request Start: 07-17-2025 End: 07-17-2025 Emergency department patient visit Dr. Esteban Ware MD Work Phone: -Emergency Department Work Phone: Start: 07-15-2025 End: 07-15-2025 Telephone encounter [facility] [place] Comment on above: Insurance Start: 07-08-2025 ambulatory JAMES Hogan MORALES Facility:[facility] Start: 07-04-2025 End: 07-04-[address] Esteban Ware MD Work Phone: -Ultrasound [facility] Start: 07-04-2025 End: 07-04-2025 Patient encounter procedure Ghislaine Ungerer [employer]NAGEMENT-C -Ultrasound [facility] Work Phone: Start: 07-04-2025 End: 07-04-2025 ambulatory Ghislaine Ungerer Facility:[facility] Start: 06-26-2025 End: 06-26-2025 Patient encounter procedure Ghislaine Ungerer [employer] MANAGEMENT-C -[facility] Work Phone: Start: 06-26-2025 End: 06-26-[address] Esteban Ware MD Work Phone: -[facility] Start: 06-19-2025 End: 06-19-2025 ambulatory FRANCESCO MANDUJANO Facility:[facility] Start: 06-12-2025 End: 06-12-[address] Esteban Ware MD Work Phone: -Radiology [facility] Start: 06-12-2025 End: 06-12-2025 Patient encounter procedure Ghislaine Ungerer [employer]EVEL MANAGEMENT-C -Radiology [facility] Work Phone: Start: 06-12-2025 End: 06-12-2025 Patient encounter procedure Ghislaine Ungerer ENTRY LEVEL MANAGEMENTSarathC -[facility] Work Phone: Start: 06-12-2025 End: 06-12-[address] Esteban Ware MD Work Phone: -[facility] Start: 06-11-2025 End: 06-11-2025 Patient encounter procedure David Dubon PA [facility] Work Phone: Start: 06-11-2025 End: 06-12-[address] Esteban Ware MD Work Phone: [facility] Start: 06-04-2025 End: 06-04-2025 Emergency department patient visit DR TABATHA NAVAS MD [facility] Start: 06-04-2025 End: 06-04-2025 Office outpatient visit 15 minutes Francesco Porras APRN.CNP Work Phone: [facility] Comment on above: Right hip pain (Prim rosa Dx) Start: 06-04-2025 End: 06-04-2025 ambulatory FRANCESCO MANDUJANO Facility:[facility] Start: 05-01-2025 End: 05-01-[address] Esteban Ware MD -[facility] Work Phone: Start: 05-01-2025 End: 05-01-[address] Esteban Ware MD Work Phone: [facility] Work Phone: Start: 04-14-2025 End: 04-14-2025 Telephone encounter [facility] Comment on above: Insurance Start: 04-09-2025 ambulatory COLEEN HU Facility:[facility] Start: 04-09-2025 End: 04-09-2025 Office outpatient visit 40 minutes Coleen JEWELL Work Phone: [facility] Comment on above: Polyarthritis with n egative rheumatoid factor (Primary Dx); Inflammatory arthritis; Raynaud's disease without gangrene; Long-term use of high-risk medication Start: 04-09-2025 ambulatory SELF SELF Facility:[facility] Start: 03-31-2025 End: 03-31-2025 ambulatory Francesco Mandujano MD Work Phone: [address] [place] [address] Start: 03-18-[address] Esteban Ware MD Work Phone: -Laboratory Work Phone: Start: 03-18-2025 ambulatory Esteban Valencialay Facility :[facility] Start: 02-21-2025 End: 02-21-[address] Esteban Ware MD Work Phone: [facility] Work Phone: Start: 02-21-2025 End: 02-21-[address] Meir Hamilton MD -Laboratory Work Phone: Start: 02-21-2025 End: 02-21-2025 ambulatory Esteban Valencialay Facility:[facility] Start: 02-04-2025 End: 02-04-2025 Telemedicine consultation with patient Ramez Rebecca DE LA ROSA Work Phone: Telemedicine Comment on above: Lactose intolerance; Nausea and vomiting, unspecified vomiting type Start: 02-04-2025 End: 02-04-2025 ambulatory FRANCESCO MANDUJANO Facility:[facility] Start: 01-28-2025 Encounter for genera l adult medical examination without abnormal findings Esteban Ware [facility] Start: 01-15-2025 End: 01-15-[address] Esteban Ware MD Work Phone: [facility] Work Phone: Start: 01-15-2025 End: 01-15-[address] Esteban Ware MD -Laboratory, [place] Start: 01-15-2025 End: 01-15-2025 ambulatory Esteban Michael Facility:[facility] Start: 01-10-2025 End: 01-10-2025 ambulatory Francesco Mandujano MD Work Phone: [facility] Start: 01-09-2025 End: 01-09-[address] Esteban Ware MD -[facility] Work Phone: Start: 01-09-2025 End: 01-09-2025 ambulatory Esteban Ware [place] Start: 01-09-2025 ambulatory COLEEN HU Facility:[facility] Start: 12-30-2024 ambulatory Esteban Ware Facility :[facility] Start: 12-11-2024 End: 12-12-2024 E-mail encounter from caregiver Louise Espino MD Work Phone: [facility] [place] Start: 12-11-2024 End: 12-12-2024 Patient encounter procedure Louise Espino MD Work Phone: [facility] Comment on above: Appointment Request Start: 12-11-2024 End: 12-11-2024 Telephone encounter Louise Espino MD Work Phone: Gastroenterology [place] Start: 12-10-2024 End: 01-10-2025 ambulatory Francesco Mandujano MD Work Phone: [facility] Start: 11-28-2024 End: 11-28-2024 Telephone encounter Chin Lewis DMD, MD Work Phone: [address] [facility] [place] Start: 11-27-2024 ambulatory FRANCESCO Dimas ty:[facility] Start: 11-27-2024 End: 11-27-2024 Office consultation new/estab patient 80 min Coleen JEWELL Work Phone: [facility] Comment on above: Inflammatory arthrit is (Primary Dx); Raynaud's disease without gangrene Start: 11-27-2024 ambulatory FRANCESCO Dimas ty:[facility] Start: 11-06-2024 End: 11-16-2024 Refill Louise Espino MD Work Phone: [facility] Comment on above: Refill Request Start: 09-30-2024 End: 09-30-2024 ambulatory FRANCESCO MANDUJANO Facility:[facility] Start: 09-30-2024 End: 09-30-2024 Patient encounter procedure Jose Raul Boone APRN.MAT MAN Work Phone: [facility] Comment on above: Rhinosinusitis (Prim rosa Dx) Start: 09-25-2024 End: 09-25-2024 Patient encounter procedure Chin Lewis DMD, MD Work Phone: [facility] Oral Surgery Comment on above: 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 (Primary Dx) Start: 09-25-2024 ambulatory UNKNOWN PROVIDER Facili ty:[facility] Start: 09-19-2024 End: 09-19-2024 ambulatory Esteban [place] [place] Start: 07-30-2024 End: 08-01-2024 ambulatory Louise Espino MD Work Phone: [facility] Comment on above: Bentyl Start: 07-22-2024 End: 07-22-2024 Telemedicine consultation with patient Heidi Sanchez LEAD INFRASTRUCTURE ARCHITECT.MAT MAN Work Phone: Telemedicine Comment on above: Pain, dental (Primar y Dx) Start: 07-16-2024 End: 07-16-2024 Nutrition therapy Diana Santa RD Work Phone: Nutrition Therapy Comment on above: Type 2 diabetes nadia itus with hyperglycemia, without long-term current use of insulin (HCC) (Primary Dx); Chronic diarrhea Start: 07-16-2024 End: 07-16-2024 Telemedicine consultation with patient Diana Santa RD Work Phone: Nutrition Therapy Start: 07-15-2024 End: 07-17-2024 Refill Louise Espino MD Work Phone: [facility] Comment on above: Refill Request Start: 06-27-2024 End: 06-27-2024 Office outpatient visit 25 minutes Louise Espino MD Work Phone: [facility] Comment on above: Chronic diarrhea (Pr imary Dx); Intestinal malabsorption, unspecified type Start: 06-25-2024 End: 06-25-2024 Telemedicine consultation with patient Carmen Mckinley LEAD INFRASTRUCTURE ARCHITECT.MAT MAN Work Phone: Telemedicine Comment on above: Gastroenteritis (Marisol amita Dx) Start: 06-25-2024 ambulatory Oumou Posey LEAD INFRASTRUCTURE ARCHITECT.MAT MAN Work Phone: Family [facility] [place] Comment on above: Dr's note Start: 06-04-2024 End: 06-04-2024 Telemedicine consultation with patient Amanda Cortes LEAD INFRASTRUCTURE ARCHITECT.MAT MAN Work Phone: Telemedicine Comment on above: Herpes zoster withou t complication (Primary Dx) Start: 04-11-2024 Telephone encounter Kajal giron DO Work Phone: [facility] Family Medicine Comment on above: Appointment Request Start: 04-03-2024 ambulatory [facility] Comment on above: Medication Start: 03-26-2024 Telephone encounter Oumou gee APRN.MAT MAN Work Phone: [facility] Medicine [place] Comment on above: Letter Request Start: 03-26-2024 End: 03-26-2024 Office outpatient visit 15 minutes Oumou Posey APRN.MAT MAN Work Phone: [facility] [place] Comment on above: Herpes zoster with c omplication (Primary Dx) Start: 03-03-2024 Refill Denise hogan LEAD INFRASTRUCTURE ARCHITECT.MAT MAN Work Phone: [facility] [place] Comment on above: Refill Request Start: 02-16-2024 Refill Francesco quiroga MD Work Phone: [facility] [place] Comment on above: Refill Request Start: 02-14-2024 End: 02-14-2024 Subsequent hospital visit by physician Louise Espino MD Work Phone: Ambulatory Surgery Comment on above: Chronic diarrhea [K5 2.9] Start: 01-26-2024 Refill Francesco quiroga MD Work Phone: [facility] Comment on above: Refill Request Start: 01-11-2024 End: 01-11-2024 Office outpatient new 60 minutes Louise Espino MD Work Phone: Gastroenterology [place] Comment on above: Chronic diarrhea (Pr imary Dx) Start: 01-11-2024 Telephone encounter Louise lemus MD [facility] Comment on above: approval to hold abigail licity Start: 01-10-2024 ambulatory Francesco quiroga MD Work Phone: Internal Medicine [facility] [place] Start: 01-05-2024 Refill Maral Kwok on PA-C Work Phone: [facility] Comment on above: Refill Request Start: 10-26-2023 ambulatory Francesco quiroga MD Work Phone: [facility] Comment on above: Gi dr Start: 10-10-2023 Refill Denise hogan APRN.MAT MAN Work Phone: [facility] Comment on above: Refill Request Start: 09-25-2023 Refill Francesco quiroga MD Work Phone: [facility] [place] Comment on above: Refill Request Start: 09-07-2023 Telephone encounter Francesco Mandujano MD Work Phone: [facility] Comment on above: Results Start: 09-06-2023 End: 09-06-2023 Subsequent hospital visit by physician [facility] (I-Stat) Work Phone: Cat Scan Comment on above: Epigastric pain [R10 .13] Start: 09-05-2023 ambulatory Francesco quiroga MD Work Phone: [facility] Comment on above: Bloodwork Start: 09-04-2023 End: 09-04-2023 Subsequent hospital visit by physician Xr [facility] [place] Work Phone: Radiology Comment on above: Epigastric pain [R10 .13] Start: 09-04-2023 E-mail encounter fro m caregiver Carmel Boone MA [facility] Start: 09-04-2023 End: 09-04-2023 Patient encounter procedure Carmel Boone MA [facility] Comment on above: appointment Epigastric pain (Marisol amita Dx); Bloating; Diarrhea, unspecified type; Nausea; Need for vaccination Start: 09-04-2023 Telephone encounter Carmel Boone MA [facility] [place] Comment on above: Appointment Start: 09-01-2023 Telephone encounter Oumou gee APRN.MAT MAN Work Phone: [facility] Comment on above: Results Start: 08-31-2023 End: 08-31-2023 Subsequent hospital visit by physician [facility] Work Phone: Radiology Comment on above: Diarrhea, unspecifie d type [R19.7] Start: 08-30-2023 End: 08-30-2023 Office outpatient visit 25 minutes Oumou Posey APRN.MAT MAN Work Phone: [facility] Comment on above: Epigastric pain (Marisol amita Dx); Type 2 diabetes mellitus with hyperglycemia, without long-term current use of insulin (HCC); Diarrhea, unspecified type; Nausea Start: 08-28-2023 End: 08-28-2023 Office outpatient visit 15 minutes Francesco Porras APRN.MAT MAN Work Phone: [facility] Comment on above: Diarrhea, unspecifie d type (Primary Dx) Start: 07-24-2023 End: 07-24-2023 Patient encounter procedure Jose Raul Boone APRN.MAT MAN Work Phone: [facility] Comment on above: Tooth infection (Marisol amita Dx) Start: 03-09-2023 Refill Francesco quiroga MD Work Phone: [facility] Comment on above: Refill Request Start: 02-06-2023 Telephone encounter Francesco Mandujano MD Work Phone: [facility] [place] Comment on above: Results Start: 02-01-2023 ambulatory Francesco quiroga MD Work Phone: Internal Medicine [facility] [place] Start: 01-31-2023 Telephone encounter Francesco Mandujano MD Work Phone: [facility] [place] Comment on above: Opened In Error Start: 01-30-2023 Chart abstracting Francesco ramirez MD Work Phone: [facility] Comment on above: Outside Labs Results Start: 01-27-2023 End: 01-27-2023 ambulatory [facility] Work Phone: Start: 01-27-2023 End: 01-27-2023 Patient encounter procedure [facility]-Laboratory, Specimen Start: 01-27-2023 End: 01-27-2023 Patient encounter procedure Francesco Mandujano MD Work Phone: [facility] Comment on above: Chest pain, unspecif ied type (Primary Dx); CACERES (dyspnea on exertion) Start: 01-21-2023 Telephone encounter Francesco Mandujano MD Work Phone: [facility] Comment on above: Appointment Start: 01-20-2023 End: 01-20-2023 Emergency department patient visit JOSY RIGGINS MD Facility:B Start: 01-20-2023 End: 01-20-2023 Emergency department patient visit ARNALDO KO MD [facility] Start: 01-19-2023 Chart abstracting Francesco ramirez MD Work Phone: [facility] [place] Comment on above: outside reports Start: 01-18-2023 End: 01-18-2023 Emergency department patient visit [facility] Start: 12-15-2022 Refill Francesco quiroga MD Work Phone: [facility] [place] Comment on above: Refill Request Start: 12-09-2022 Telephone encounter Francesco Mandujano MD Work Phone: [facility] [place] Comment on above: Insurance Authorizat ion Start: 11-27-2022 Telephone encounter Francesco Mandujano MD Work Phone: [facility] [place] Comment on above: Results Start: 10-31-2022 End: 10-31-2022 Patient encounter procedure Francesco Mandujano MD Work Phone: [facility] [place] Comment on above: Type 2 diabetes nadia itus with hyperglycemia, without long-term current use of insulin (HCC) (Primary Dx); Essential hypertension with goal blood pressure less than 130/85; Mild intermittent asthma without complication; Dyslipidemia; Pulmonary HTN (HCC); Moderate episode of recurrent major depressive disorder (HCC); PTSD (post-traumatic stress disorder); Generalized anxiety disorder; Seronegative rheumatoid arthritis (HCC); Vitamin D deficiency; Hypomagnesemia; Obesity (BMI 30-39.9); Encounter for immunization Start: 03-31-2022 Telephone encounter Francesco Mandujano MD Work Phone: [facility] [place] Comment on above: Release Of Medical R ecords Start: 03-24-2022 End: 03-24-2022 Patient encounter procedure Francesco Mandujano MD Work Phone: [facility] [place] Comment on above: Well adult exam ([facility] Dx); Encounter for gynecological examination without abnormal finding; Type 2 diabetes mellitus with hyperglycemia, without long-term current use of insulin (HCC); Essential hypertension with goal blood pressure less than 130/85; Dyslipidemia; Mild intermittent asthma without complication; Pulmonary HTN (HCC); Seronegative rheumatoid arthritis (HCC); Moderate episode of recurrent major depressive disorder (HCC); Generalized anxiety disorder; PTSD (post-traumatic stress disorder); Vitamin D deficiency; Obesity (BMI 30-39.9); Hypomagnesemia; Fatty liver; Elevated LFTs; Medication management; Need for vaccination; Impacted cerumen of left ear Start: 03-24-2022 End: 03-24-2022 Patient encounter status Francesco Mandujano MD Work Phone: [facility] [place] Start: 01-30-2022 Refill Francesco quiroga MD Work Phone: [facility] [place] Comment on above: Refill Request Start: 02-12-2020 Patient encounter status Roberta Mandujano MD Work Phone: [facility] Work Phone: Start: 10-03-2018 [facility] Start: 05-17-2018 Patient encounter status Roberta Mandujano MD Work Phone: [facility] Work Phone: Start: 01-31-2018 End: 01-31-2018 Ambulatory CRISTI CAMPBELL [facility] Procedures Date Procedure Procedure Detail Performing Clinician Start: 08-14-2025 Follow-up visit Follow-up COLEEN HU Start: 08-05-2025 Urnls dip stick/tablet reagent auto microscopy Dr. Esteban Ware MD Work Phone: Start: 08-05-[address] Esteban Ware MD Work Phone: Start: 08-05-[address] Keiry Ware MD Work Phone: Start: 08-05-2025 CT of abdomen and pelvis without contrast Dr. Esteban Ware MD Work Phone: Start: 07-17-2025 CT of abdomen and pelvis without contrast Dr. Esteban Ware MD Work Phone: Start: 07-17-2025 Urnls dip stick/tablet reagent auto microscopy Dr. Esteban Ware MD Work Phone: Start: 07-17-[address] Keiry Ware MD Work Phone: Start: 07-17-[address] Esteban bansal MD Work Phone: Start: 07-04-[address] Esteban bansal MD Work Phone: Start: 06-12-2025 Plain x-ray of pelvis and lower extremity Dr. Esteban Ware MD Work Phone: Start: 02-21-[address] Esteban Ware MD Work Phone: Comment on above: Test Ordered: [id number] Red BeetTe st(s) [id number] Red Beetwere developed and had performance characteristicsdetermined by [facility]. These tests have not been cleared orapproved by the U.S. Food and Drug Administration. The FDAhas determined that such clearance or approval is notnecessary. These tests are used for clinical purposes.These should not be regarded as investigational or forresearch.[id number] Red Beet <0.10 kU/L Reference Range: Class 0 Levels of Specific IgE Class Description of Class ----- < 0.10 0 Negative 0.10 - 0.31 0/I Equivocal/Low 0.32 - 0.55 I Low 0.56 - 1.40 II Moderate 1.41 - 3.90 III High 3.91 - 19.00 IV Very High 19.01 - 100.00 V Very High >100.00 Very HighPerformed at: [address] [id number] Director: Charbel Cervantes MD, Phone: [phone] at: [address] [id number] Director: Khurram Vasquez PhD, Phone: [phone] Start: 02-21-2025 Scallop JONO Ware MD Work Phone: Start: 02-21-2025 Sesame seed JONO Ware MD Work Phone: Start: 02-21-2025 Shrimp JONO Ware MD Work Phone: Start: 02-14-2024 Level iv surg pathology gross&microscopic exam Louise Espino MD Work Phone: Start: 02-14-2024 Esophagogastroduodenoscopy transoral diagnostic Louise Espino MD Work Phone: Start: 02-14-2024 Colonoscopy flx dx w/collj spec when pfrmd Louise Espino MD Work Phone: Start: 09-06-2023 Ct abdomen & pelvis w/contrast material Francesco Mandujano MD Work Phone: Start: 09-04-2023 Radiologic exam abdomen 3+ views Francesco Mandujano MD Work Phone: Start: 09-04-2023 INFLUENZA VACCINE, AGE 6 MO - 64 YR, QUADRIVALENT (AFLURIA, FLULAVAL, FLUZONE) Francesco Mandujano MD Work Phone: Start: 08-31-2023 Us abdominal real time w/image limited Oumou Posey LEAD INFRASTRUCTURE ARCHITECT.MAT MAN Work Phone: Start: 01-18-2023 Plain chest X-ray Start: 10-31-2022 INFLUENZA VACCINE QUADRIVALENT 6 MO - 64 YRS IM Francesco Mandujano MD Work Phone: Start: 11-18-2015 Hysterectomy ARNALDO KO MD Start: 10-14-2015 Hysteroscopy ARNALDO KO MD Comment on above: with D&C Start: 01-13-2015 Catheterization of left heart ARNALDO KO MD Comment on above: pt states both sides of heart Start: 10-05-2010 Microscopic observation [Identifier] in Cervix by Cyto stain Chin Lewis DMD, MD Work Phone: Appendectomy ARNALDO KO MD Comment on above: AGE 14 Cholecystectomy ARNALDO Brizuela Comment on above: 2004 Colonoscopy ARNALDO KO MD Comment on above: JUNE OF 2015 Decompression of median nerve ARNALDO KO MD Comment on above: BILATERAL IN 2001 AND 2002 Entire knee meniscus (body structure) ARNALDO KO MD Comment on above: REPAIRED IN 2013 Plan of Treatment Date Care Activity Detail Author Start: 2047 PNEUMOCOCCAL (3 - PPSV23 if available, else PCV20) PNEUMOCOCCAL (3 - PPSV23 if available, else PCV20) [facility] Start: 2047 PNEUMOCOCCAL (3 - PPSV23 or PCV20) PNEUMOCOCCAL (3 - PPSV23 or PCV20) [facility] Start: 2047 Pneumococcal vaccination [facility] Start: 10-13-2033 Shingrix Vaccine (1 of 2) Shingrix Vaccine (1 of 2) [facility] Comment on above: Postponed from 2001 (Postponed To Appropriate Date) Start: 2032 Pneumococcal vaccination [facility] Start: 2032 Shingles (RZV) Vaccine (1 of 2) Shingles (RZV) Vaccine (1 of 2) [facility] Start: 11-27-2025 Potassium [Moles/volume] in Serum or Plasma POTASSIUM [facility] Start: 09-30-2025 BP Controlled (<130/80) BP Controlled (<130/80) [facility] in Start: 09-04-2025 End: 09-04-2025 Patient encounter procedure 09/04/2025 2:30 PM EDT Office Visit [facility] [place] [address] [address] Louise Espino MD [address] [place], [place] [phone] 6 month follow up, chronic diarrhea, intestinal malabsorption [facility] [place] Comment on above: 6 month follow up, chronic diarrhea, int estinal malabsorption Start: 08-14-2025 End: 08-14-2025 Telemedicine consultation with patient [facility] Start: 08-09-2025 Creatinine measurement [facility] Start: 08-09-2025 Lipid panel [facility] Start: 08-08-2025 Patient encounter procedure Registered Clinical -Laboratory [facility] Work Phone: Start: 08-05-2025 [facility] Start: 07-17-2025 [facility] Start: 07-14-2025 COVID-19 VACCINE ( season) COVID-19 VACCINE ( season) [facility] Start: 07-14-2025 Influenza vaccination [facility]ine (#[facility] Start: 07-08-2025 End: 07-08-2025 Telemedicine consultation with patient 07/08/2025 1:00 PM EDT Telemedicine Rheumatology Outpatient [facility] [address] [place] [address] James Morales, LEAD INFRASTRUCTURE ARCHITECT-MAT MAN [address] [place] [address] [facility] Outpatient Care [facility] Start: 07-01-2025 MG Breast - bilateral Screening [facility] Start: 06-27-2025 Shingrix Vaccine (2 of 2) Shingrix Vaccine (2 of 2) [facility] Start: 06-19-2025 End: 06-19-2025 Patient encounter procedure 06/19/2025 1:45 PM EDT Office Visit [facility] [place] [phone] [place] [address] [place], [place] [phone] 6 month follow up, chronic diarrhea, intestinal malabsorption [facility] Comment on above: 6 month follow up, chronic diarrhea, int estinal malabsorption Start: 05-01-2025 Thyroid stimulating hormone measurement [facility] Start: 05-01-2025 Urine microalbumin/creatinine ratio measurement [facility] Start: 04-10-2025 End: 04-10-2025 Patient encounter procedure 04/10/2025 3:45 PM EDT Office Visit Gastroenterology [facility] [phone] [place] [address] [place], [place] [phone] 6 month follow up, chronic diarrhea, intestinal malabsorption [facility] Comment on above: 6 month follow up, chronic diarrhea, int estinal malabsorption Start: 04-09-2025 End: 04-09-2026 M TUBERCULOSIS BY QUANTIFERON, BLChata [facility] Comment on above: Expected: 04/09/2025, Expires: Start: 04-02-2025 End: 04-02-2025 Patient encounter procedure 04/02/2025 3:00 PM EDT Office Visit [facility] Oral Surgery [address] [phone] Chin Lewis DMD, MD [address] [place] [address] [facility] Oral Surgery Start: 03-26-2025 Annual PCP Team Chronic Disease Visit Annual PCP Team Chronic Disease Visit [facility] Start: 02-21-2025 [facility] Start: 01-09-2025 End: 01-09-2025 Telemedicine consultation with patient 01/09/2025 9:00 AM EST Telemedicine [facility] [place] [address] [place] [phone] Coleen Hu MBBS [address] [place] [address] [facility] [place] Start: 01-02-2025 End: 01-02-2025 Patient encounter procedure [facility] Comment on above: 6 month follow up, chronic diarrhea, int estinal malabsorption Start: 10-13-2024 Tetanus vaccination [facility] Start: 10-13-2024 Urine microalbumin profile [facility] Start: 09-04-2024 Annual PCP Team Chronic Disease Visit Annual PCP Team Chronic Disease Visit [facility] Start: 09-04-2024 BP Controlled (<130/80) BP Controlled (<130/80) [facility] Start: 08-30-2024 Annual PCP Team Chronic Disease Visit Annual PCP Team Chronic Disease Visit [facility] Start: 08-28-2024 BP Controlled (<130/80) BP Controlled (<130/80) [facility] in Start: 07-24-2024 BP CONTROLLED (<130/80) BP CONTROLLED (<130/80) [facility] inic Start: 07-16-2024 End: 07-16-2024 Nutrition therapy 07/16/2024 2:15 PM EDT [facility] Nutrition Therapy [address] [phone] Diana Santa, JULIETTE [address] [place], [place] [phone] [facility] Comment on above: Celiac Start: 07-14-2024 Covid-19 Vaccine () Covid-19 Vaccine () [facility] Start: 07-14-2024 COVID-19 Vaccine () COVID-19 Vaccine () [facility] Start: 07-14-2024 Influenza vaccination [facility] Start: 06-27-2024 End: 06-27-2024 Patient encounter procedure 06/27/2024 2:45 PM EDT Office Visit [facility] [place] [address] [place] [address] Louise Espino MD [address] [place] [address] follow up from EGD/ Colon and labs [facility] [place] Comment on above: follow up from EGD/ Colon and labs Start: 06-27-2024 End: 09-26-2024 CBC panel - Blood by Automated count [facility] Comment on above: Expected: 06/27/2024, Expires: 4 Start: 06-27-2024 End: 09-26-2024 Comprehensive metabolic 2000 panel - Serum or Plasma [facility] Comment on above: Expected: 06/27/2024, Expires: Start: 06-27-2024 End: 09-26-2024 Ferritin [Mass/volume] in Serum or Plasma [facility] Work Phone: Comment on above: Expected: 06/27/2024, Expires: Start: 06-27-2024 End: 09-26-2024 GLIADIN (DEAMINATED) [facility] Comment on above: Expected: 06/27/2024, Expires: Start: 06-27-2024 End: 09-26-2024 Tissue transglutaminase Ab panel - Serum [facility] Comment on above: Expected: 06/27/2024, Expires: Start: 06-11-2024 End: 06-11-2024 Patient encounter procedure 06/11/2024 1:00 PM EDT Office Visit [facility] [place] [address] [facility] [place], [place] [phone] Francesco Mandujano MD [address] [place], [place] [phone] Follow up [facility] Comment on above: Follow up Start: 04-04-2024 End: 07-04-2024 [facility] HLA-DQ GENOTYPE [facility] HLA-DQ GENOTYPE Lab Routine Nausea Expected: 04/04/2024, Expires: 07/04/2024 [facility] Work Phone: Comment on above: Expected: 04/04/2024, Expires: Start: 03-22-2024 End: 03-22-2024 Patient encounter procedure 03/22/2024 1:00 PM EDT Office Visit [facility] [place] [address] [facility] [place], [place] [phone] Francesco Mandujano MD [address] [place], [place] [phone] Follow up [facility] [place] Comment on above: Follow up Start: 02-29-2024 Hemoglobin A1c measurement Hemoglobin A1C [facility] Start: 01-28-2024 ANNUAL PCP TEAM CHRONIC DISEASE VISIT ANNUAL PCP TEAM CHRONIC DISEASE VISIT [facility] Start: 01-11-2024 End: 04-11-2024 CELIAC SCREEN WITH REFLEX CELIAC SCREEN WITH REFLEX Lab Routine Chronic diarrhea Expected: 01/11/2024, Expires: 04/11/2024 [facility] Work Phone: Comment on above: Expected: 01/11/2024, Expires: 4 Start: 01-11-2024 End: 04-11-2024 Thyrotropin [Units/volume] in Serum or Plasma TSH BLD Lab Routine Chronic diarrhea Expected: 01/11/2024, Expires: 04/11/2024 [facility] Work Phone: Comment on above: Expected: 01/11/2024, Expires: Start: 11-30-2023 Hemoglobin A1c measurement HbA1C [facility] Start: 11-30-2023 Hemoglobin A1c/Hemoglobin.total in Blood HbA1C [facility] Start: 11-22-2023 Hepatitis B surface antibody level LDL CHOLESTEROL [facility] Start: 10-31-2023 ANNUAL PCP TEAM CHRONIC DISEASE VISIT ANNUAL PCP TEAM CHRONIC DISEASE VISIT [facility] Start: 09-08-2023 End: 12-08-2023 Basic metabolic 2000 panel - Serum or Plasma BASIC METABOLIC PNL Lab Routine Type 2 diabetes mellitus with hyperglycemia, without long-term current use of insulin (HCC) Expected: 09/08/2023, Expires: 12/08/2023 [facility] Work Phone: Comment on above: Expected: 09/08/2023, Expires: 4 Start: 09-04-2023 End: 12-04-2023 CREATININE BLD CREATININE BLD Lab STAT Epigastric pain Expected: 09/04/2023, Expires: 12/04/2023 [facility] Work Phone: Comment on above: Expected: 09/04/2023, Expires: 4 Start: 08-30-2023 End: 11-29-2023 Basic metabolic 2000 panel - Serum or Plasma [facility] Work Phone: Comment on above: Expected: 08/30/2023, Expires: Start: 08-30-2023 End: 11-29-2023 C reactive protein [Mass/volume] in Serum or Plasma [facility] Work Phone: Comment on above: Expected: 08/30/2023, Expires: 4 Start: 08-30-2023 End: 11-29-2023 Calprotectin [Mass/mass] in Stool CALPROTECTIN,FECAL Lab Routine Diarrhea, unspecified type Expected: 08/30/2023, Expires: 11/29/2023 [facility] Work Phone: Comment on above: Expected: 08/30/2023, Expires: Start: 08-30-2023 End: 11-29-2023 Clostridioides difficile toxin genes [Presence] in Stool by BILL with probe detection C. DIFFICILE PCR Lab Routine Diarrhea, unspecified type Expected: 08/30/2023, Expires: 11/29/2023 [facility] Work Phone: Comment on above: Expected: 08/30/2023, Expires: Start: 08-30-2023 End: 08-30-2024 ENTERIC BACTERIAL PANEL BY PCR ENTERIC BACTERIAL PANEL BY PCR Lab Routine Diarrhea, unspecified type Expected: 08/30/2023, Expires: 08/30/2024 [facility] Work Phone: Comment on above: Expected: 08/30/2023, Expires: Start: 08-30-2023 End: 11-29-2023 Erythrocyte sedimentation rate [facility] Work Phone: Comment on above: Expected: 08/30/2023, Expires: Start: 08-30-2023 End: 11-29-2023 FECAL LACTOFERRIN/LEUKOCYTES FECAL LACTOFERRIN/LEUKOCYTES Lab Routine Diarrhea, unspecified type Expected: 08/30/2023, Expires: 11/29/2023 [facility] Work Phone: Comment on above: Expected: 08/30/2023, Expires: Start: 08-30-2023 End: 11-29-2023 Gastrointestinal pathogens panel - Stool by Culture STOOL CULTURE/EIA Microbiology Routine Diarrhea, unspecified type Expected: 08/30/2023, Expires: 11/29/2023 [facility] Work Phone: Comment on above: Expected: 08/30/2023, Expires: 4 Start: 08-30-2023 End: 11-29-2023 Giardia lamblia+Cryptosporidium sp Ag [Presence] in Stool by Immunoassay CRYPTOSPORIDIUM AND GIARDIA ANTIGENS BY EIA Microbiology Routine Diarrhea, unspecified type Expected: 08/30/2023, Expires: 11/29/2023 [facility] Work Phone: Comment on above: Expected: 08/30/2023, Expires: 4 Start: 08-30-2023 End: 11-29-2023 Helicobacter pylori Ag [Presence] in Stool by Immunoassay [facility] Work Phone: Comment on above: Ordered: 08/30/2023 Expected: 08/30/2023 , Expires: 11/29/2023 Start: 08-30-2023 End: 11-29-2023 Hemoglobin A1c in Blood [facility] Work Phone: Comment on above: Expected: 08/30/2023, Expires: Start: 08-30-2023 End: 11-29-2023 Hepatic function 2000 panel - Serum or Plasma [facility] Work Phone: Comment on above: Expected: 08/30/2023, Expires: Start: 08-30-2023 End: 11-29-2023 Lipase [Enzymatic activity/volume] in Serum or Plasma [facility] Work Phone: Comment on above: Expected: 08/30/2023, Expires: Start: 08-30-2023 End: 11-29-2023 Magnesium [Mass/volume] in Serum or Plasma [facility] Work Phone: Comment on above: Expected: 08/30/2023, Expires: Start: 08-30-2023 End: 08-30-2024 Norovirus Ag [Presence] in Stool NOROVIRUS GROUP 1 AND 2 Lab Routine Diarrhea, unspecified type Expected: 08/30/2023, Expires: 08/30/2024 [facility] Work Phone: Comment on above: Expected: 08/30/2023, Expires: 4 Start: 08-30-2023 End: 11-29-2023 Rotavirus Ag [Presence] in Stool by Immunoassay ROTAVIRUS AG BY EIA Microbiology Routine Diarrhea, unspecified type Expected: 08/30/2023, Expires: 11/29/2023 [facility] Work Phone: Comment on above: Expected: 08/30/2023, Expires: 4 Start: 08-30-2023 End: 11-29-2023 Thyrotropin [Units/volume] in Serum or Plasma [facility] Work Phone: Comment on above: Expected: 08/30/2023, Expires: 4 Start: 08-30-2023 End: 11-29-2023 Thyroxine (T4) free [Mass/volume] in Serum or Plasma [facility] Work Phone: Comment on above: Expected: 08/30/2023, Expires: 4 Start: 07-14-2023 Covid-19 Vaccine ( season) Covid-19 Vaccine () [facility] Start: 07-14-2023 Influenza vaccination [facility] Start: 04-21-2023 End: 06-21-2023 25-hydroxyvitamin D3 [Mass/volume] in Serum or Plasma VITAMIN D 25 HYDROXY Lab Routine Vitamin D deficiency Expected: 04/21/2023, Expires: 06/21/2023 [facility] Work Phone: Comment on above: Expected: 04/21/2023, Expires: 3 Start: 04-21-2023 End: 06-21-2023 ALBUMIN/CREAT RATIO RND UR ALBUMIN/CREAT RATIO RND UR Lab Routine Type 2 diabetes mellitus with hyperglycemia, without long-term current use of insulin (HCC) Expected: 04/21/2023, Expires: 06/21/2023 [facility] Work Phone: Comment on above: Expected: 04/21/2023, Expires: 3 Start: 04-21-2023 End: 06-21-2023 CBC W Auto Differential panel - Blood CBC + DIFF Lab Routine Type 2 diabetes mellitus with hyperglycemia, without long-term current use of insulin (HCC) Expected: 04/21/2023, Expires: 06/21/2023 [facility] Work Phone: Comment on above: Expected: 04/21/2023, Expires: 3 Start: 04-21-2023 End: 06-21-2023 Comprehensive metabolic 2000 panel - Serum or Plasma COMP METABOLIC PANEL Lab Routine Type 2 diabetes mellitus with hyperglycemia, without long-term current use of insulin (HCC) Essential hypertension with goal blood pressure less than 130/85 Dyslipidemia Expected: 04/21/2023, Expires: 06/21/2023 [facility] Work Phone: Comment on above: Expected: 04/21/2023, Expires: 3 Start: 04-21-2023 End: 06-21-2023 Hemoglobin A1c in Blood HGB A1C Lab Routine Type 2 diabetes mellitus with hyperglycemia, without long-term current use of insulin (HCC) Expected: 04/21/2023, Expires: 06/21/2023 [facility] Work Phone: Comment on above: Expected: 04/21/2023, Expires: 3 Start: 04-21-2023 End: 06-21-2023 LIPID PANEL, NONFASTING LIPID PANEL, NONFASTING Lab Routine Type 2 diabetes mellitus with hyperglycemia, without long-term current use of insulin (HCC) Essential hypertension with goal blood pressure less than 130/85 Dyslipidemia Expected: 04/21/2023, Expires: 06/21/2023 [facility] Work Phone: Comment on above: Expected: 04/21/2023, Expires: 3 Start: 04-21-2023 End: 06-21-2023 Magnesium [Mass/volume] in Serum or Plasma MAGNESIUM BLD Lab Routine Hypomagnesemia Expected: 04/21/2023, Expires: 06/21/2023 [facility] Work Phone: Comment on above: Expected: 04/21/2023, Expires: 3 Start: 04-21-2023 End: 06-21-2023 Urinalysis complete panel - Urine URINALYSIS, WITH MICROSCOPIC Lab Routine Type 2 diabetes mellitus with hyperglycemia, without long-term current use of insulin (HCC) Essential hypertension with goal blood pressure less than 130/85 Dyslipidemia Expected: 04/21/2023, Expires: 06/21/2023 [facility] Work Phone: Comment on above: Expected: 04/21/2023, Expires: 3 Start: 04-03-2023 Glaucoma screening Dilated Retinal Exam [facility] Start: 04-03-2023 Hepatitis C antibody, confirmatory test DILATED RETINAL EXAM [facility] Start: 03-24-2023 3 comp foot exam completed DIABETIC FOOT EXAM [facility] Start: 03-24-2023 ANNUAL PCP TEAM CHRONIC DISEASE VISIT ANNUAL PCP TEAM CHRONIC DISEASE VISIT [facility] Start: 03-24-2023 BP CONTROLLED (<130/80) BP CONTROLLED (<130/80) [facility] Start: 03-24-2023 COVID-19 VACCINE (#1) COVID-19 VACCINE (#1) [facility] Comment on above: Postponed from 1987 (Declined at t his time) Postponed from 06/19 (Declined at this time) Start: 03-24-2023 Diabetic foot examination Diabetic Foot Exam [facility] Start: 03-24-2023 Hepatitis B screening URINE ALBUMIN:CREATININE RATIO [facility] Start: 03-24-2023 Hepatitis B surface antibody level LDL CHOLESTEROL [facility] Start: 03-24-2023 Urine screening for protein [facility]rine [facility]albumin[facility] Start: 02-20-2023 Hemoglobin A1c/Hemoglobin.total in Blood HBA1C [facility] Start: 01-18-2023 [facility] Start: 12-28-2022 End: 02-27-2023 CBC W Auto Differential panel - Blood CBC + DIFF Lab Routine Leukocytosis, unspecified type Expected: 12/28/2022, Expires: 02/27/2023 [facility] Work Phone: Comment on above: Expected: 12/28/2022, Expires: 3 Start: 2022 Lipid panel LIPID SCREENING [facility] Start: 2022 Mammography [facility] Start: 2022 Screening for malignant neoplasm of breast [facility] Start: 10-31-2022 End: 12-31-2022 25-hydroxyvitamin D3 [Mass/volume] in Serum or Plasma VITAMIN D 25 HYDROXY Lab Routine Vitamin D deficiency Expected: 10/31/2022, Expires: 12/31/2022 [facility] Work Phone: Comment on above: Expected: 10/31/2022, Expires: 3 Start: 10-31-2022 End: 12-31-2022 CBC W Auto Differential panel - Blood CBC + DIFF Lab Routine Type 2 diabetes mellitus with hyperglycemia, without long-term current use of insulin (HCC) Expected: 10/31/2022, Expires: 12/31/2022 [facility] Work Phone: Comment on above: Expected: 10/31/2022, Expires: 3 Start: 10-31-2022 End: 12-31-2022 Comprehensive metabolic 2000 panel - Serum or Plasma COMP METABOLIC PANEL Lab Routine Type 2 diabetes mellitus with hyperglycemia, without long-term current use of insulin (HCC) Essential hypertension with goal blood pressure less than 130/85 Dyslipidemia Expected: 10/31/2022, Expires: 12/31/2022 [facility] Work Phone: Comment on above: Expected: 10/31/2022, Expires: 3 Start: 10-31-2022 End: 12-31-2022 Hemoglobin A1c in Blood HGB A1C Lab Routine Type 2 diabetes mellitus with hyperglycemia, without long-term current use of insulin (HCC) Expected: 10/31/2022, Expires: 12/31/2022 [facility] Work Phone: Comment on above: Expected: 10/31/2022, Expires: 3 Start: 10-31-2022 End: 12-31-2022 LIPID PANEL, NONFASTING LIPID PANEL, NONFASTING Lab Routine Type 2 diabetes mellitus with hyperglycemia, without long-term current use of insulin (HCC) Essential hypertension with goal blood pressure less than 130/85 Dyslipidemia Expected: 10/31/2022, Expires: 12/31/2022 [facility] Work Phone: Comment on above: Expected: 10/31/2022, Expires: 3 Start: 07-14-2022 Influenza vaccination INFLUENZA (Season Ended) [facility] Start: 06-24-2022 Hemoglobin A1c/Hemoglobin.total in Blood HBA1C [facility] Start: 03-19-2022 ANNUAL PCP TEAM CHRONIC DISEASE VISIT ANNUAL PCP TEAM CHRONIC DISEASE VISIT [facility] Start: 07-14-2021 Influenza vaccination INFLUENZA (#1) [facility] Start: 11-04-2020 Hepatitis B screening URINE ALBUMIN:CREATININE RATIO [facility] Start: 11-04-2020 Hepatitis B surface antibody level LDL CHOLESTEROL [facility] Start: 02-03-2020 Hemoglobin A1c/Hemoglobin.total in Blood HBA1C [facility] Start: 05-17-2019 3 comp foot exam completed DIABETIC FOOT EXAM [facility] Start: 10-05-2013 Screening for malignant neoplasm of cervix Pap Smear [facility] Start: 2009 HPV VACCINE (1 - 3-dose SCDM series) HPV VACCINE (1 - 3-dose SCDM series) [facility] Start: 2009 HPV Vaccine (optional start 27-45 years) HPV Vaccine (optional start 27-45 years) [facility] Start: 2003 Screening for malignant neoplasm of cervix CERVICAL CANCER SCREENING DISCUSSION [facility] Start: 2001 Hepatitis A (HAV) Vaccine (optional start 19+ years) Hepatitis A (HAV) Vaccine (optional start 19+ years) [facility] Start: 2001 Hepatitis B vaccination [facility] Start: 2000 BP CONTROLLED (<130/80) BP CONTROLLED (<130/80) [facility] Start: 2000 Hepatitis C screening Hepatitis C Antibody [facility] Start: 2000 HIV SCREENING HIV SCREENING [facility] Start: 1997 HIV screening [facility] Start: 1994 COVID-19 VACCINE (1) COVID-19 VACCINE (1) [facility] Start: 1992 Hepatitis C antibody, confirmatory test DILATED RETINAL EXAM [facility] Start: 1987 Covid-19 Vaccine (#1) Covid-19 Vaccine (#1) [facility] Start: 06-19-1983 COVID-19 VACCINE (#1) COVID-19 VACCINE (#1) [facility] Start: 1982 [facility] Start: 1982 Diabetic foot examination Foot Exam [facility] Start: 1982 Hepatitis C screening HEPATITIS C VIRUS SCREENING [facility] Beef IgE Ab [Units/volume] in Serum [facility] CBC W Auto Different ial panel - Blood [facility] Clam IgE Ab [Units/volume] in Serum [facility] Clostridioides diffi cile toxin genes [Presence] in Stool by BILL with probe detection C. DIFFICILE PCR Lab Routine Diarrhea, unspecified type Ordered: 08/28/2023 [facility] Work Phone: Comment on above: Ordered: 08/28/2023 Codfish IgE Ab [Units/volume] in Serum [facility] Comprehensive metabo lic 2000 panel - Serum or Plasma [facility] Encampment IgE Ab [Units/volume] in Serum [facility] Cow milk IgE Ab [Units/volume] in Serum [facility] CT Abdomen [facility] End: 10-03-2024 Ct abdomen & pelvis w/contrast material CT ABD/PEL W IVCON Radiology Routine Epigastric pain Bloating Diarrhea, unspecified type Nausea 1 Occurrences starting 09/04/2023 until 10/03/2024 [facility] Work Phone: Comment on above: 1 Occurrences starting 09/04/2023 until 10/03/2024 End: 01-09-2026 DBT Breast - bilateral screening ANDREZ SCREENING W NAYLA Radiology Routine Encounter for screening mammogram for breast cancer 1 Occurrences starting 12/10/2024 until 01/09/2026 [facility] Work Phone: Comment on above: 1 Occurrences starting 12/10/2024 until 01/09/2026 End: 01-28-2024 Echocardiography ECHO Cardiology ANTWAN Chest pain, unspecified type CACERES (dyspnea on exertion) 1 Occurrences starting 01/27/2023 until 01/28/2024 [facility] Work Phone: Comment on above: 1 Occurrences starting 01/27/2023 until 01/28/2024 End: 01-10-2025 EGD DIAGNOSTIC EGD DIAGNOSTIC Endoscopy Routine Chronic diarrhea 1 Occurrences starting 01/11/2024 until 01/10/2025 [facility] Work Phone: Comment on above: 1 Occurrences starting 01/11/2024 until 01/10/2025 Egg white RAST [facility] ENTERIC BACTERIAL PA GIORGI BY PCR ENTERIC BACTERIAL PANEL BY PCR Lab Routine Diarrhea, unspecified type Ordered: 08/28/2023 [facility] Work Phone: Comment on above: Ordered: 08/28/2023 End: 01-28-2024 EXERCISE STRESS ECG (WITHOUT IMAGING) EXERCISE STRESS ECG (WITHOUT IMAGING) Cardiology ANTWAN Chest pain, unspecified type CACERES (dyspnea on exertion) 1 Occurrences starting 01/27/2023 until 01/28/2024 [facility] Work Phone: Comment on above: 1 Occurrences starting 01/27/2023 until 01/28/2024 End: 01-10-2025 Flexible sigmoidoscopy study COLONOSCOPY DIAGNOSTIC Endoscopy Routine Chronic diarrhea 1 Occurrences starting 01/11/2024 until 01/10/2025 [facility] Work Phone: Comment on above: 1 Occurrences starting 01/11/2024 until 01/10/2025 Lipid 1996 panel - S poppy or Plasma [facility] End: 03-02-2024 ANDREZ SCREENING ANDREZ SCREENING Radiology Routine Encounter for screening mammogram for breast cancer 1 Occurrences starting 02/01/2023 until 03/02/2024 [facility] Work Phone: Comment on above: 1 Occurrences starting 02/01/2023 until 03/02/2024 MG Breast - bilatera l Screening [facility] MG Breast - bilatera l Screening [facility] End: 02-08-2025 MG Breast Screening ANDREZ SCREENING Radiology Routine Encounter for screening mammogram for breast cancer 1 Occurrences starting 01/10/2024 until 02/08/2025 [facility] Work Phone: Comment on above: 1 Occurrences starting 01/10/2024 until 02/08/2025 Ova and parasites identified in Unspecified specimen by Light microscopy OVA + PARA MICROSCOPIC Microbiology Routine Diarrhea, unspecified type Ordered: 08/28/2023 [facility] Work Phone: Comment on above: Ordered: 08/28/2023 Patient Education [facility] Work Phone: Patient referral [facility] Work Phone: Peanut IgE Ab [Units/volume] in Serum [facility] End: 10-03-2024 Radiologic exam abdomen 3+ views XR ABDOMEN 3V KUB W/OBLIQUES Radiology Routine Epigastric pain Bloating Diarrhea, unspecified type 1 Occurrences starting 09/04/2023 until 10/03/2024 [facility] Work Phone: Comment on above: 1 Occurrences starting 09/04/2023 until 10/03/2024 Radiologic exam abdo men 3+ views XR ABDOMEN 3V KUB W/OBLIQUES Radiology Routine Epigastric pain Bloating Diarrhea, unspecified type 09/04/2023 5:52 PM EDT [facility] Work Phone: Scallop RAST [facility] Sesame seed RAST [facility] Shrimp IgE Ab [Units/volume] in Serum [facility] Soybean IgE Ab [Units/volume] in Serum [facility] End: 09-28-2024 US ABD RIGHT UPPER QUADRANT US ABD RIGHT UPPER QUADRANT Radiology Routine Diarrhea, unspecified type Epigastric pain 1 Occurrences starting 08/30/2023 until 09/28/2024 [facility] Work Phone: Comment on above: 1 Occurrences starting 08/30/2023 until 09/28/2024 [place] RAST [facility] Wheat IgE Ab [Units/volume] in Serum [facility] XR Hip Views [facility] Immunizations Immunization Date Immunization Notes Care Provider Zack cabezas 05-02-[address] Esteban Ware MD Work Phone: [facility] 09-19-2024 influenza, injectabl e, madin lucy canine kidney, preservative free Chin Lewis DMD, MD Work Phone: [facility] 09-19-2024 Influenza, injectabl e, Madin [place] Canine Kidney, preservative free, quadrivalent Dr. Esteban Ware MD Work Phone: [facility] 09-19-2024 influenza virus vaccine, unspecified formulation Francesco Porras APRN.MAT MAN Work Phone: [facility] 09-04-2023 influenza, injectabl e, quadrivalent, contains preservative Carmel Boone MA [facility] 09-04-2023 influenza, injectabl e, quadrivalent, preservative free Dr. Esteban Ware MD Work Phone: [facility] 09-04-2023 influenza virus vaccine, unspecified formulation Amanda Cortes LEAD INFRASTRUCTURE ARCHITECT.MAT MAN Work Phone: [facility] 08-30-2023 Hemoglobin A1C Chin Lewis DMD, MD Work Phone: [facility] 10-31-2022 influenza, injectabl e, quadrivalent, contains preservative Francesco Mandujano MD Work Phone: [facility] 10-31-2022 influenza, injectabl e, quadrivalent, preservative free Dr. Esteban Ware MD Work Phone: [facility] 10-31-2022 influenza virus vaccine, unspecified formulation Francesco Porras APRN.MAT MAN Work Phone: [facility] 03-24-2022 pneumococcal polysaccharide vaccine, 23 valent Francesco Mandujano MD Work Phone: [facility] 09-17-2018 influenza, injectabl e, quadrivalent, contains preservative Francesco Mandujano MD Work Phone: [facility] 09-17-2018 influenza, injectabl e, quadrivalent, preservative free Dr. Esteban Ware MD Work Phone: [facility] 11-15-2016 pneumococcal conjuga te vaccine, 13 valent Francesco Mandujano MD Work Phone: [facility] 10-17-2016 influenza, injectabl e, quadrivalent, preservative free Dr. Esteban Ware MD Work Phone: [facility] 10-17-2016 influenza, seasonal, injectable Francesco Mandujano MD Work Phone: [facility] 08-25-2015 influenza virus vaccine, unspecified formulation Francesco Mandujano MD Work Phone: [facility] Work Phone: 08-25-2015 influenza, injectabl e, quadrivalent, preservative free Dr. Esteban Ware MD Work Phone: [facility] 10-13-2014 tetanus toxoid, redu maurizio diphtheria toxoid, and acellular pertussis vaccine, adsorbed Francesco Mandujano MD Work Phone: [facility] 08-22-2014 influenza, injectabl e, quadrivalent, preservative free Dr. Esteban Ware MD Work Phone: [facility] 08-22-2014 influenza, seasonal, injectable Francesco Mandujano MD Work Phone: [facility] 10-15-2013 pneumococcal polysaccharide vaccine, 23 valent Francesco Mandujano MD Work Phone: [facility] Work Phone: 09-18-2013 influenza virus vaccine, unspecified formulation Francesco Mandujano MD Work Phone: [facility] Work Phone: Payers Date Payer Category Payer Self-pay [id number] 2019 Dental --Stand Alone DENTAL - EN RADHA KENDALL [id number] 2019 Medicaid (Managed Care) [facility] [id number] 2019 Unknown [facility] [id number] 2019-Present [address] [place] [id number] 2019 Medicaid [id number] 2019 Medicaid [place] [employer] on file [id number] 2018 Medicaid [place] [employer] [place] [employer] [id number] 2018-Present [phone] [address] [place] [address] Medicaid [id number] 2018 Medicaid [id number] 2014 Unknown [facility] [id number] 1982 Unknown [id number] [id number]. 627 1982 Unknown [id number] .[id number]. 627 1982 Unknown [id number] .1.985387.3.579.2. 627 1982 Unknown [id number] .1.112753.3.579.2. 732 1982 Unknown [id number] .1.066506.3.579.2. 594 1982 Unknown [id number] .1.933335.3.579.2. 594 1982 Unknown [id number] .1.701018.3.579.2. 594 1982 Unknown [id number] .1.028957.3.579.2. 594 1982 Unknown [id number] .1.149072.3.579.2. 594 1982 Unknown [id number] .1.466078.3.579.2. 594 1982 Unknown [id number] .1.292742.3.579.2. 594 1982 Unknown [id number] .1.449055.3.579.2. 594 Unknown [id number] .1.515261.3.579.2. 462 Unknown [id number] .1.056729.3.579.2. 462 Unknown [id number] 2.16.840.1.688331.3.579.2. 462 Unknown [id number] 2.16.840.1.383720.3.579.2. 462 Unknown [id number] 2.16.840.1.834643.3.579.2. 462 Unknown [id number] 2.16.840.1.442670.3.579.2. 462 Unknown [id number] 2.16.840.1.895688.3.579.2. 462 Unknown [id number] 2.16.840.1.956515.3.579.2. 462 Unknown [id number] 2.16.840.1.244263.3.579.2. 462 Unknown [id number] 2.16.840.1.969278.3.579.2. 462 Unknown [id number] 2.16.840.1.224323.3.579.2. 462 Unknown [id number] 2.16.840.1.435847.3.579.2. 462 Unknown [id number] 2.16.840.1.013901.3.579.2. 462 Unknown [id number] 2.16.840.1.287010.3.579.2. 462 Unknown [id number] 2.16.840.1.726889.3.579.2. 462 Unknown [id number] 2.16840.1.337095.3.579.2. 462 Social History Date Type Detail Facility Start: 09-20-2018 End: 11-27-2024 Tobacco smoking status NHIS Ex-smoker [facility] Start: 09-20-2002 End: 11-13-2012 History of tobacco use Current smoker [facility] Start: 09-20-2002 End: 11-13-2012 History of tobacco use Cigarette Smoker [facility] Start: 09-20-2018 End: 08-14-2025 Cigarettes smoked current (pack per day) - Reported 0.5 [facility] Start: 09-20-2018 End: 11-27-2024 Tobacco use and exposure Smokeless tobacco non-user [facility] Start: 03-21-2021 End: 06-19-2025 Alcohol intake Ex-drinker (finding) [facility] Start: 02-12-2020 End: 09-29-2020 History SDOH Alcohol Frequency 1 [facility] Start: 11-12-2013 History SDOH Alcohol Comment 3-4 at time twice a year, mixed drinks [facility] Start: 02-12-2020 History SDOH Social Connections Phone 5 [facility] Start: 02-12-2020 History SDOH Social Connections Get Together 3 [facility] Start: 02-12-2020 History SDOH Social Connections Membership 2 [facility] Start: 02-12-2020 History SDOH Social Connections Living 7 [facility] Start: 02-12-2020 History SDOH Physica l Activity MPS 6 [facility] Start: 02-12-2020 History SDOH Financial 4 [facility] Start: 11-12-2013 End: 10-31-2022 Tobacco Comment Father smoked in childhood home. [facility] Start: 1980 Sex Assigned At Not on file [facility] Start: 01-17-2022 End: 03-24-2022 Exposure to SARS-CoV-2 (event) Not sure [facility] Start: 01-18-2023 End: 01-18-2023 Tobacco smoking status NHIS Unknown if ever smoked [facility] Start: 02-17-2015 None [facility] Start: 01-08-2019 With Family [facility] Start: 07-24-2019 Non-smoker [facility] Start: 1980 Sex Assigned At Female [facility] Start: 04-09-2021 Tobacco smoking status Never s moked tobacco (finding) [facility] Start: 02-12-2020 End: 08-14-2025 Social connection and isolation panel [facility] Do you belong to any clubs or organizations such as sabianism groups, unions, fraternal or athletic groups, or school groups? No [facility] Are you now , , , , never or living with a partner? Never [facility] How often to you hav e a drink containing alcohol? Never [facility] Work Phone: Start: 10-14-2012 End: 09-22-2025 Average Number of Drinks Not on file [facility] How hard is it for y ou to pay for the very basics like food, housing, medical care, and heating Not very hard [facility] Do you feel stress - tense, restless, nervous, or anxious, or unable to sleep at night because your mind is troubled all the time - these days [OSQ] To some extent [facility] (I/We) worried wheth er (my/our) food would run out before (I/we) got money to buy more. Never true [facility] Start: 10-07-2019 End: 03-23-2022 [facility] (finding[facility] Start: 11-27-2024 End: 08-14-2025 Alcoholic beverage intake Lifetime non-drinker (finding) [facility] Start: 01-09-2025 Gender identity Identifies as female gender (finding) [facility] Start: 01-09-2025 Sexual orientation Heterosexua l (finding) [facility] Sexual Orientation [facility] [place] NEGATED: Highlighted row [facility] Medical Equipment Procedure Code Equipment Code Equipment Origin al Text Equipment Identifier Dates Arthroscopy, knee, with meniscal root repair NEEDLE REV CRV DEL SYS FDA Start: 07-31-2019 Arthroscopy, knee, with meniscal root repair NEEDLE REV CRV DEL SYS FDA Start: 07-31-2019 Arthroscopy, knee, with meniscal root repair NEEDLE REV CRV DEL SYS FDA Start: 07-31-2019 Arthroscopy, knee, with meniscal root repair NEEDLE REV CRV DEL SYS FDA Start: 07-31-2019 Arthroscopy, knee, with meniscal root repair NEEDLE REV CRV DEL SYS FDA Start: 07-31-2019 Arthroscopy, knee, with meniscal root repair NEEDLE REV CRV DEL SYS FDA Start: 07-31-2019 Arthroscopy, knee, with meniscal root repair NEEDLE REV CRV DEL SYS FDA Start: 07-31-2019 Arthroscopy, knee, with meniscal root repair NEEDLE REV CRV DEL SYS FDA Start: 07-31-2019 Arthroscopy, knee, with meniscal root repair NEEDLE REV CRV DEL SYS FDA Start: 07-31-2019 Arthroscopy, knee, with meniscal root repair NEEDLE REV CRV DEL SYS FDA Start: 07-31-2019 Arthroscopy, knee, with meniscal root repair NEEDLE REV CRV DEL SYS FDA Start: 07-31-2019 Arthroscopy, knee, with meniscal root repair NEEDLE REV CRV DEL SYS FDA Start: 07-31-2019 Arthroscopy, knee, with meniscal root repair NEEDLE REV CRV DEL SYS FDA Start: 07-31-2019 Arthroscopy, knee, with meniscal root repair NEEDLE REV CRV DEL SYS FDA Start: 07-31-2019 Arthroscopy, knee, with meniscal root repair NEEDLE REV CRV DEL SYS FDA Start: 07-31-2019 Arthroscopy, knee, with meniscal root repair NEEDLE REV CRV DEL SYS FDA Start: 07-31-2019 Arthroscopy, knee, with meniscal root repair NEEDLE REV CRV DEL SYS FDA Start: 07-31-2019 Arthroscopy, knee, with meniscal root repair NEEDLE REV CRV DEL SYS FDA Start: 07-31-2019 Arthroscopy, knee, with meniscal root repair NEEDLE REV CRV DEL SYS FDA Start: 07-31-2019 Arthroscopy, knee, with meniscal root repair NEEDLE REV CRV DEL SYS FDA Start: 07-31-2019 Arthroscopy, knee, with meniscal root repair NEEDLE REV CRV DEL SYS FDA Start: 07-31-2019 Arthroscopy, knee, with meniscal root repair NEEDLE REV CRV DEL SYS FDA Start: 07-31-2019 Arthroscopy, knee, with meniscal root repair NEEDLE REV CRV DEL SYS FDA Start: 07-31-2019 Arthroscopy, knee, with meniscal root repair NEEDLE REV CRV DEL SYS FDA Start: 07-31-2019 Arthroscopy, knee, with meniscal root repair NEEDLE REV CRV DEL SYS FDA Start: 07-31-2019 Arthroscopy, knee, with meniscal root repair NEEDLE REV CRV DEL SYS FDA Start: 07-31-2019 Arthroscopy, knee, with meniscal root repair NEEDLE REV CRV DEL SYS FDA Start: 07-31-2019 Arthroscopy, knee, with meniscal root repair NEEDLE REV CRV DEL SYS FDA Start: 07-31-2019 Arthroscopy, knee, with meniscal root repair NEEDLE REV CRV DEL SYS FDA Start: 07-31-2019 Arthroscopy, knee, with meniscal root repair NEEDLE REV CRV DEL SYS FDA Start: 07-31-2019 Arthroscopy, knee, with meniscal root repair NEEDLE REV CRV DEL SYS FDA Start: 07-31-2019 Arthroscopy, knee, with meniscal root repair NEEDLE REV CRV DEL SYS FDA Start: 07-31-2019 Arthroscopy, knee, with meniscal root repair NEEDLE REV CRV DEL SYS FDA Start: 07-31-2019 Arthroscopy, knee, with meniscal root repair NEEDLE REV CRV DEL SYS FDA Start: 07-31-2019 Arthroscopy, knee, with meniscal root repair NEEDLE REV CRV DEL SYS FDA Start: 07-31-2019 Arthroscopy, knee, with meniscal root repair NEEDLE REV CRV DEL SYS FDA Start: 07-31-2019 Arthroscopy, knee, with meniscal root repair NEEDLE REV CRV DEL SYS FDA Start: 07-31-2019 Arthroscopy, knee, with meniscal root repair NEEDLE REV CRV DEL SYS FDA Start: 07-31-2019 Arthroscopy, knee, with meniscal root repair NEEDLE REV CRV DEL SYS FDA Start: 07-31-2019 Arthroscopy, knee, with meniscal root repair NEEDLE REV CRV DEL SYS FDA Start: 07-31-2019 Arthroscopy, knee, with meniscal root repair NEEDLE REV CRV DEL SYS FDA Start: 07-31-2019 Arthroscopy, knee, with meniscal root repair NEEDLE REV CRV DEL SYS FDA Start: 07-31-2019 Arthroscopy, knee, with meniscal root repair NEEDLE REV CRV DEL SYS FDA Start: 07-31-2019 Arthroscopy, knee, with meniscal root repair NEEDLE REV CRV DEL SYS FDA Start: 07-31-2019 Arthroscopy, knee, with meniscal root repair NEEDLE REV CRV DEL SYS FDA Start: 07-31-2019 Arthroscopy, knee, with meniscal root repair NEEDLE REV CRV DEL SYS FDA Start: 07-31-2019 Arthroscopy, knee, with meniscal root repair NEEDLE REV CRV DEL SYS FDA Start: 07-31-2019 Arthroscopy, knee, with meniscal root repair NEEDLE REV CRV DEL SYS FDA Start: 07-31-2019 Arthroscopy, knee, with meniscal root repair NEEDLE REV CRV DEL SYS FDA Start: 07-31-2019 Arthroscopy, knee, with meniscal root repair NEEDLE REV CRV DEL SYS FDA Start: 07-31-2019 Arthroscopy, knee, with meniscal root repair NEEDLE REV CRV DEL SYS FDA Start: 07-31-2019 Arthroscopy, knee, with meniscal root repair NEEDLE REV CRV DEL SYS FDA Start: 07-31-2019 [id number], [id number], [id number] Start: 03-01-2019 End: 11-29-2022 Comment on above: Test blood sugar(s) 4 times daily. Dx: Type 2 DM - Uncontrolled E11.65 Insulin: No Use one needle per d ose. 4 per day Test blood sugar(s) 1 times daily. Dx: Type 2 DM - Uncontrolled E11.65 Insulin: No Test blood sugar(s) 2 times daily. Dx: Type 2 DM - Uncontrolled E11.65 Insulin: yes Use one needle per d ose. one per day Vasc Closure Angioseal Vip 6fr - [id number] FDA Start: 07-11-2019 Blood Sugar Diagnostic (Accu-Chek Nathalie Plus Test Strp) strip Start: 05-08-2024 Lancets (Accu-Ch ek Fastclix Lancet Drum) misc Start: 05-08-2024 Blood Sugar Diagnostic (Accu-Chek Nathalie Plus Test Strp) strip Start: 05-08-2024 Lancets (Accu-Ch ek Fastclix Lancet Drum) misc Start: 05-08-2024 Blood Sugar Diagnostic (Accu-Chek Nathalie Plus Test Strp) strip Start: 05-08-2024 Lancets (Accu-Ch ek Fastclix Lancet Drum) misc Start: 05-08-2024 Blood Sugar Diagnostic (Accu-Chek Nathalie Plus Test Strp) strip Start: 05-14-2025 Lancets (Accu-Ch ek Fastclix Lancet Drum) misc Start: 05-08-2024 Blood Sugar Diagnostic (Accu-Chek Nathalie Plus Test Strp) strip Start: 05-08-2024 End: 05-14-2025 Blood Sugar Diagnostic (Accu-Chek Nathalie Plus Test Strp) strip Start: 05-14-2025 End: 05-14-2025 Blood Sugar Diagnostic (Accu-Chek Nathalie Plus Test Strp) strip Start: 05-14-2025 Lancets (Accu-Ch ek Fastclix Lancet Drum) misc Start: 05-08-2024 Blood Sugar Diagnostic (Accu-Chek Nathalie Plus Test Strp) strip Start: 05-08-2024 End: 05-14-2025 Blood Sugar Diagnostic (Accu-Chek Nathalie Plus Test Strp) strip Start: 05-14-2025 End: 05-14-2025 Blood Sugar Diagnostic (Accu-Chek Nathalie Plus Test Strp) strip Start: 05-14-2025 Lancets (Accu-Ch ek Fastclix Lancet Drum) misc Start: 05-08-2024 Blood Sugar Diagnostic (Accu-Chek Nathalie Plus Test Strp) strip Start: 05-08-2024 End: 05-14-2025 Blood Sugar Diagnostic (Accu-Chek Nathalie Plus Test Strp) strip Start: 05-14-2025 End: 05-14-2025 Blood Sugar Diagnostic (Accu-Chek Nathalie Plus Test Strp) strip Start: 05-14-2025 Lancets (Accu-Ch ek Fastclix Lancet Drum) misc Start: 05-08-2024 Blood Sugar Diagnostic (Accu-Chek Nathalie Plus Test Strp) strip Start: 05-08-2024 End: 05-14-2025 Blood Sugar Diagnostic (Accu-Chek Nathalie Plus Test Strp) strip Start: 05-14-2025 End: 05-14-2025 Blood Sugar Diagnostic (Accu-Chek Nathalie Plus Test Strp) strip Start: 05-14-2025 Lancets (Accu-Ch ek Fastclix Lancet Drum) misc Start: 05-08-2024 Blood Sugar Diagnostic (Accu-Chek Nathalie Plus Test Strp) strip Start: 05-08-2024 End: 05-14-2025 Blood Sugar Diagnostic (Accu-Chek Nathalie Plus Test Strp) strip Start: 05-14-2025 End: 05-14-2025 Blood Sugar Diagnostic (Accu-Chek Nathalie Plus Test Strp) strip Start: 05-14-2025 Lancets (Accu-Ch ek Fastclix Lancet Drum) misc Start: 05-08-2024 Blood Sugar Diagnostic (Accu-Chek Nathalie Plus Test Strp) strip Start: 05-08-2024 End: 05-14-2025 Blood Sugar Diagnostic (Accu-Chek Nathalie Plus Test Strp) strip Start: 05-14-2025 End: 05-14-2025 Blood Sugar Diagnostic (Accu-Chek Nathalie Plus Test Strp) strip Start: 05-14-2025 Lancets (Accu-Ch ek Fastclix Lancet Drum) misc Start: 05-08-2024 Blood Sugar Diagnostic (Accu-Chek Nathalie Plus Test Strp) strip Start: 05-08-2024 End: 05-14-2025 Blood Sugar Diagnostic (Accu-Chek Nathalie Plus Test Strp) strip Start: 05-14-2025 End: 05-14-2025 Blood Sugar Diagnostic (Accu-Chek Nathalie Plus Test Strp) strip Start: 05-14-2025 Lancets (Accu-Ch ek Fastclix Lancet Drum) misc Start: 05-08-2024 Blood Sugar Diagnostic (Accu-Chek Nathalie Plus Test Strp) strip Start: 05-08-2024 End: 05-14-2025 Blood Sugar Diagnostic (Accu-Chek Nathalie Plus Test Strp) strip Start: 05-14-2025 End: 05-14-2025 Goals Date Patient Goal Desired Activity /State Personal health goal Functional Status Date Assessment Result Facility 09-22-2025 Functional Status ID band on, Allergy Band on, Call device within reach, Bed in low position, Wheels locked, Upper/Half-Length side-rails up, Bedside Cart Locked, Safety level maintained [facility] 09-22-2025 [facility] 01-20-2023 Functional Status Ambulating in guerra, Ambulating in room, Awake, Bathroom privileges [facility] 01-20-2023 Functional Status [facility] 01-20-2023 Functional Status Standard Safet y ID band on, Call device within reach, Bed in low position, Wheels locked, Upper/Half-Length side-rails up [facility] 06-16-2015 Are you deaf, or do you have serious difficulty hearing No 06/16/2015 11:05 AM CINDA Nesbitt Ma [facility] 06-16-2015 Are you blind, or do you have serious difficulty seeing, even when wearing glasses No 06/16/2015 11:05 AM Shekhar Carson [facility] 06-16-2015 Do you have serious difficulty walking or climbing stairs No 06/16/2015 11:05 AM Shekhar Carson [facility] 06-16-2015 Do you have difficul ty dressing or bathing No 06/16/2015 11:05 AM Shekhar Carson [facility] 06-16-2015 Because of a physica l, mental, or emotional condition, do you have difficulty doing errands alone such as visiting a physician's office or shopping No 06/16/2015 11:05 AM Shekhar Carson [facility] Mental Status Date Assessment Result Facility 09-22-2025 Mental Status Orientation Oriented x 4 [facility] 01-20-2023 Mental Status Orientation Oriented x 4 [facility] 01-20-2023 Mental Status [facility] 01-20-2023 Mental Status [facility] 01-18-2023 Cognitive function Voice/Name [facility] Work Phone: 06-16-2015 Because of a physica l, mental, or emotional condition, do you have serious difficulty concentrating, remembering, or making decisions No 06/16/2015 11:05 AM Shekhar Carson [facility] Clinical Notes 03-03-2015 to 09-22-2025 Note Date & Type Note Facility 09-22-2025 Hospital Discharg e instructions Patient Education 09/22/2025 18:03:43 Gastroenteritis, Noninfectious Noninfectious Gastroenteritis (Adult) Gastroenteritis can cause nausea, vomiting, diarrhea, and cramping in the belly. This may occur from food sensitivity, inflammation of your gastrointestinal tract, medicines, stress, or other causes not related to infection. Your symptoms will usually last from 1 to 3 days, but can last longer. Antibiotics are not effective, but simple home treatment will be helpful. Home care Medicine You may use acetaminophen or NSAID medicines like ibuprofen or naproxen to control fever, unless another medicine is prescribed. (Note: If you have chronic liver or kidney disease, or ever had a stomach ulcer or gastrointestinaI bleeding, talk with your healthcare provider before using these medicines.) Aspirin should never be used in anyone under 18 years of age who is ill with a fever. It may cause severe liver damage. Don't increase your NSAID medicines if you are already taking these medicines for another condition (like arthritis). Don't use NSAIDS if you are on aspirin (such as for heart disease, or after a stroke). If medicines for diarrhea or vomiting are prescribed, take only as directed. General care and preventing spread of the illness If symptoms are severe, rest at home for the next 24 hours or until you feel better. Hand washing with soap and water is the best way to prevent the spread of infection. Wash your hands after touching anyone who is sick. Wash your hands after using the toilet and before meals. Clean the toilet after each use. Caffeine, tobacco, and alcohol can make your diarrhea, cramping, and pain worse. Diet Water and clear liquids are important so you do not get dehydrated. Drink a small amount at a time. Don't force yourself to eat, especially if you have cramps, vomiting, or diarrhea. When you finally decide to start eating, do not eat large amounts at a time, even if you are hungry. If you eat, avoid fatty, greasy, spicy, or fried foods. Don't eat dairy products if you have diarrhea; they can make the diarrhea worse. During the first 24 hours (the first full day), follow the diet below: Beverages: Water, clear liquids, soft drinks without caffeine, like jass mariano; mineral water (plain or flavored); decaffeinated tea and coffee. Soups: Clear broth, consomm , and bouillon sports drinks aren't a good choice because they have too much sugar and not enough electrolytes. In this case, commercially available products called oral rehydration solutions are best. Desserts: Plain gelatin, ice pops, and fruit juice bars During the next 24 hours (the second day), you may add the following to the above if you have improved. If not, continue what you did the first day: Hot cereal, plain toast, bread, rolls, crackers Plain noodles, rice, mashed potatoes, chicken noodle or rice soup Unsweetened canned fruit and bananas (don't eat pineapple or citrus) Limit caffeine and chocolate. No spices or seasonings except salt. During the next 24 hours Gradually resume a normal diet, as you feel better and your symptoms improve. If at any time your symptoms start getting worse, go back to clear liquids until you feel better. Food preparation If you have diarrhea, you should not prepare food for others. When you prepare food for yourself, wash your hands before and after. Wash your hands after using cutting boards, countertops, and knives that have been in contact with raw food. Keep uncooked meats away from cooked and quitr-wa-cec foods. Follow-up care Follow up with your healthcare provider if you are not improving over the next 2 to 3 days, or as advised. If a stool (diarrhea) sample was taken, call for the results as directed. Call 911 Call 911 if any of these occur: Trouble breathing Chest pain Confusion Severe drowsiness or trouble awakening Seizure Stiff neck When to seek medical advice Call your healthcare provider right away if any of these occur: Increasing belly pain or constant lower right belly pain Continued vomiting (unable to keep liquids down) Frequent diarrhea (more than 5 times a day) Blood in vomit or stool (black or red color) Inability to tolerate solid food after a few days. Dark urine, reduced urine output Weakness, dizziness Drowsiness Fever of 100.4 F (38.0 C) or higher, or as directed by your healthcare provider Chencho akbar [phone] [employer]. [address] [place] [id number]. All rights reserved. This information is not intended as a substitute for professional medical care. Always follow your healthcare professional's instructions. Follow Up Care 09/22/2025 13:45:47 With:FRANCESCO MANDUJANO MD Address: [address] [place] [id number]- When:2-4 days [facility] 09-22-2025 Emergency department Discharge summary Discharge Instructions Thank you for allowing [facility] to assist you with your healthcare needs. The following is important discharge information regarding your hospital visit. Diagnosis from Today's Visit Enteritis What to Do Next Instructions from Your Care Team No qualifying data available. Post Acute Orders No qualifying data available. You Need to Schedule the Following Appointments Follow Up with FRANCESCO MANDUJANO MD When:Within 2-4 days Where:[address] [place] [address]- Allergies Aleve Bleach Skin irritation, Skin breakdown Natural Vegetable Laxative Tape, Paper Toradol ibuprofen penicillin Medications Please ask your primary doctor or pharmacist before taking any other medication not listed, including over the counter drugs, herbal medications, vitamins and or supplements as they may interact with your home medications. What How Much When Instructions Last Dose New hyoscyamine (hyoscyamine 0.125 mg oral tablet) 2 tab(s) by mouth Four (4) times a day as needed for as needed for spasm Duration: 5 Days Printed Prescription New ondansetron (Zofran 4 mg oral tablet) 1 tab(s) by mouth Every 6 hours as needed for Nausea/Vomiting Duration: 5 Days Printed Prescription Unchanged dulaglutide (Trulicity Pen) Subcutaneous Every week Unchanged furosemide (furosemide 40 mg oral tablet) 1 tab(s) by mouth Every other day Unchanged furosemide (Lasix 80 mg oral tablet) 1 tab(s) by mouth Every other day Unchanged hydrOXYzine (hydrOXYzine pamoate 50 mg oral capsule) 1 cap by mouth Four (4) times a day as needed for as needed for anxiety Unchanged isosorbide mononitrate (Imdur use isosorbide mononitrate ) by mouth Unchanged metFORMIN (MetFORMIN (Eqv-Glucophage XR) 500 mg oral tablet, EXTENDED RELEASE) 1 tab(s) by mouth Once a day Unchanged metFORMIN (metFORMIN 500 mg oral tablet, extended release) 2 tab(s) by mouth Two (2) times a day Unchanged nadolol (nadolol 40 mg oral tablet) 1 tab(s) by mouth Two (2) times a day Unchanged OLANZapine (OLANZapine 10 mg oral tablet) 1 tab(s) by mouth Every day Unchanged prazosin (prazosin 1 mg oral capsule) 1 cap by mouth Two (2) times a day Unchanged spironolactone (spironolactone 50 mg oral tablet) 1 tab(s) by mouth Once a day Unchanged topiramate (topiramate 100 mg oral tablet) 1 tab(s) by mouth Two (2) times a day Please take this list to your next doctor s visit. Bring all medications you take, including over the counter medications, herbals and other supplements with you to your doctor s visit. Patients and families are reminded to discard old lists and to update any records with all medication providers or retail pharmacies. Education Materials Noninfectious Gastroenteritis (Adult) Gastroenteritis can cause nausea, vomiting, diarrhea, and cramping in the belly. This may occur from food sensitivity, inflammation of your gastrointestinal tract, medicines, stress, or other causes not related to infection. Your symptoms will usually last from 1 to 3 days, but can last longer. Antibiotics are not effective, but simple home treatment will be helpful. Home care Medicine You may use acetaminophen or NSAID medicines like ibuprofen or naproxen to control fever, unless another medicine is prescribed. (Note: If you have chronic liver or kidney disease, or ever had a stomach ulcer or gastrointestinaI bleeding, talk with your healthcare provider before using these medicines.) Aspirin should never be used in anyone under 18 years of age who is ill with a fever. It may cause severe liver damage. Don't increase your NSAID medicines if you are already taking these medicines for another condition (like arthritis). Don't use NSAIDS if you are on aspirin (such as for heart disease, or after a stroke). If medicines for diarrhea or vomiting are prescribed, take only as directed. General care and preventing spread of the illness If symptoms are severe, rest at home for the next 24 hours or until you feel better. Hand washing with soap and water is the best way to prevent the spread of infection. Wash your hands after touching anyone who is sick. Wash your hands after using the toilet and before meals. Clean the toilet after each use. Caffeine, tobacco, and alcohol can make your diarrhea, cramping, and pain worse. Diet Water and clear liquids are important so you do not get dehydrated. Drink a small amount at a time. Don't force yourself to eat, especially if you have cramps, vomiting, or diarrhea. When you finally decide to start eating, do not eat large amounts at a time, even if you are hungry. If you eat, avoid fatty, greasy, spicy, or fried foods. Don't eat dairy products if you have diarrhea; they can make the diarrhea worse. During the first 24 hours (the first full day), follow the diet below: Beverages: Water, clear liquids, soft drinks without caffeine, like jass mariano; mineral water (plain or flavored); decaffeinated tea and coffee. Soups: Clear broth, consomm , and bouillon sports drinks aren't a good choice because they have too much sugar and not enough electrolytes. In this case, commercially available products called oral rehydration solutions are best. Desserts: Plain gelatin, ice pops, and fruit juice bars During the next 24 hours (the second day), you may add the following to the above if you have improved. If not, continue what you did the first day: Hot cereal, plain toast, bread, rolls, crackers Plain noodles, rice, mashed potatoes, chicken noodle or rice soup Unsweetened canned fruit and bananas (don't eat pineapple or citrus) Limit caffeine and chocolate. No spices or seasonings except salt. During the next 24 hours Gradually resume a normal diet, as you feel better and your symptoms improve. If at any time your symptoms start getting worse, go back to clear liquids until you feel better. Food preparation If you have diarrhea, you should not prepare food for others. When you prepare food for yourself, wash your hands before and after. Wash your hands after using cutting boards, countertops, and knives that have been in contact with raw food. Keep uncooked meats away from cooked and ncniv-mo-dpe foods. Follow-up care Follow up with your healthcare provider if you are not improving over the next 2 to 3 days, or as advised. If a stool (diarrhea) sample was taken, call for the results as directed. Call 911 Call 911 if any of these occur: Trouble breathing Chest pain Confusion Severe drowsiness or trouble awakening Seizure Stiff neck When to seek medical advice Call your healthcare provider right away if any of these occur: Increasing belly pain or constant lower right belly pain Continued vomiting (unable to keep liquids down) Frequent diarrhea (more than 5 times a day) Blood in vomit or stool (black or red color) Inability to tolerate solid food after a few days. Dark urine, reduced urine output Weakness, dizziness Drowsiness Fever of 100.4 F (38.0 C) or higher, or as directed by your healthcare provider Chencho akbar [phone] [employer]. [address] [place] [address]. All rights reserved. This information is not intended as a substitute for professional medical care. Always follow your healthcare professional's instructions. Additional Information VACCINATE! IT SAVES LIVES! Members of the community who have not yet received the COVID-19 vaccine and would like to receive it can visit one of [facility] vaccine clinics. There are many vaccine clinic locations within the [facility]. For locations and available times, please visit [email or web address] [email or web address] It is important to note that some COVID mobile vaccine clinics are held outdoors and may be canceled in rainy or stormy conditions. To learn more about pediatric vaccinations (ages 5-11), we invite you to visit the [facility] webpage. [email or web address]/p [email or web address]-Freq [email or web address] To learn more about the COVID-19 vaccine, we invite you to visit the CDC website for a list of frequently asked questions. https://www.cdc.gov/coronavirus/ 2019-ncov/vaccines/faq.html [employer] Patient Portal Access Instructions: Stay connected with your healthcare team and access your personal medical information anytime with the [facility] Patient Portal. If you would like a full copy of your medical records please contact the [facility] Medical Records Department Monday through Monday between 8a.m. and 4:30p.m. Please follow the directions below to access the portal: 1.Access the email account you provided upon registration to the [facility].2.Look for an invitation email from [facility].3.Open the email and access the invitation link: Accept Invitation to [facility].Fill in the required beck to create your account. To access your account, visit [email or web address] or scan the QR code above. Click the blue button labeled Access Patient Portal and then log in with the username and password that you created in the steps above. You can then view a summary of results, a summary of your visits, and the ability to download your summaries to your computer or send the information securely to a physician. Remember that your healthcare information is confidential, so carefully consider who you will allow to register on the [facility] Patient Portal for access to your information. You can also access the [facility] Patient Portal on the [employer] sebastián. Simply click on Health Records under Health Data and then click on the [employer] logo. HOW TO SAFELY DISPOSE OF PRESCRIPTION MEDICATIONS Please use one of the following methods to safely dispose of your unused medications. 1.Use a drug disposal kit: the drug disposal pouch allows you to safely discard your old and unused drugs. Ask your nurse to give you one when you are discharged.2.Visit a local take-back location: Many local pharmacies and police departments have programs that collect old and unwanted prescription drugs. Call your local pharmacy or go to http://Exinda.CICCWORLD/4D4Ek0c to find one close to you.3.Make use of household items: Use cat litter or old coffee grounds to dispose medications if other options are not available. Mix your drugs with these household products, seal them in an airtight container and throw it into the garbage. Call [facility]: [phone] to be sure your drugs can be disposed of in this way. Some medicines may require a different approach.4.Never flush your medications down the toilet. IF YOU HAVE BEEN PRESCRIBED AN OPIOIDS FOR PAIN If you have been prescribed an opioid (such as hydrocodone, oxycodone or morphine), it is critical to understand the possible side effects and risks of opioid pain medications. Even when taken as directed, opioids can have several side effects including: Tolerance, meaning you might need to take more of a medication for the same pain relief. Nausea, vomiting and/or constipation. Sleepiness, dizziness, dry mouth, confusion, depression or itching. Physical dependence, meaning you have withdrawal symptoms when a medication is stopped ? this can develop within a few days. KNOW YOUR RESPONSIBILITIES It is important to know exactly how much and how often to take the opioid pain medications you are prescribed. Never take opioids in higher amounts or more often than prescribed. Do not combine opioids with alcohol or other drugs that cause drowsiness, such as benzodiazepines, also known as benzos, including diazepam and alprazolam, muscle relaxants or sleep aids. Never sell or share prescription opioids. This is illegal. Store opioids in a secure place and out of reach of others (including children, family, friends and visitors). The last page(s) of this document has been signed and retained as a CHART COPY Signatures Patient Education Materials Gastroenteritis, Noninfectious Medication Leaflets My discharge plan and instructions have been reviewed and explained to me and I,LUKASZ DIAZ Lilliana understand my current condition and have read and understand these discharge instructions. I have received a written copy of the plan/instructions. If I have questions, I am aware that I should contact my doctor. Patient/Child Care Center Administrator Signature: Date/Time: Relationship to Patient: Witness Name/Signature: Date/Time: [facility] 09-22-2025 Note Exam Date Time Procedure Performing Provider Status 09/22/25 5:[address] Abd/Pelvis w/ IV Contrast Only COLLEEN PICHARDO MD; Auth (Verified) [id number] ORIGINAL EXAMINATION: CT OF THE ABDOMEN AND PELVIS WITH CONTRAST 09/22/2025 5:09 pm TECHNIQUE: CT of the abdomen and pelvis was performed with the administration of intravenous contrast. Multiplanar reformatted images are provided for review. Automated exposure control, iterative reconstruction, and/or weight based adjustment of the mA/kV was utilized to reduce the radiation dose to as low as reasonably achievable. COMPARISON: Same day pelvic ultrasound. HISTORY: ORDERING SYSTEM PROVIDED HISTORY: Reason for Exam: RLQ abdominal pain FINDINGS: The heart is normal in size. No pericardial thickening or effusion. The visualized lower lungs are without acute abnormality. The aorta is nonaneurysmal with no significant atherosclerosis. No adenopathy within the abdomen or pelvis. Focal fatty infiltration along the falciform groove. Mild intrahepatic biliary ductal dilation likely from prior cholecystectomy. The spleen, pancreas, and bilateral adrenal glands are unremarkable. The kidneys enhance symmetrically. No hydronephrosis or renal calculi. Bilateral subcentimeter renal hypodensities too small to characterize but most likely represent simple cysts. The bladder is unremarkable. Left adnexal appearance relates to multiple follicles better appreciated on the same day pelvic ultrasound. No pneumoperitoneum or free fluid. There are distended and thick walled loops of small bowel throughout the abdomen with a smooth transition. Prior appendectomy. No acute osseous abnormality. Degenerative changes of the spine. Findings compatible with DISH. IMPRESSION: Findings compatible with efza-if-nzervhcx enteritis. No pneumoperitoneum or free fluid. I have personally reviewed the images of this examination and agree with the resident's findings and interpretation. Interpreted by: Colleen Pichardo Preliminary Report By: Jamar León Electronically signed By Colleen Pichardo Dictated Date: 09/22/2025 5:28:36 PM Prelim Date: 09/22/2025 5:32:41 PM Sign Date: 09/22/2025 5:43:02 PM Ordering Provider: MARIO LORD RP [facility]11-10-2025 Note* Exam Date Time Procedure Performing Provider Status 09/22/25 2:59 PM US Pelvis Non-OB W/Transvaginal COLLEEN PICHARDO MD; Auth (Verified) [id number] ORIGINAL EXAMINATION: TRANSVAGINAL PELVIC ULTRASOUND 09/22/2025 Transabdominal and TRANSVAGINAL PELVIC ULTRASOUND TECHNIQUE: Transvaginal pelvic ultrasound was performed. Transvaginal and transabdominal pelvic ultrasound was performed. COMPARISON: None HISTORY: ORDERING SYSTEM PROVIDED HISTORY: Reason for Exam: pelvic pain FINDINGS: Measurements: Uterus: Surgically absent. Right Ovary:3.8 cm x 2.8 cm x 2.6 cm, volume 14.6 mL Left Ovary: 3.9 cm x 3.1 cm x 3.4 cm, volume 21.31 mL. Ultrasound Findings: Uterus: Uterus is surgically absent. Right Ovary: Right ovary is within normal limits, mildly hypoechoic with intact arterial and vascular flow on Doppler imaging. Left Ovary: Left ovary is within normal limits. There are multiple prominent follicles measuring up to 1.4 cm. There is normal arterial and venous Doppler flow. Free Fluid: No evidence of free fluid. IMPRESSION: 1. No acute abnormality. 2. Status post hysterectomy. Interpreted by: Colleen Pichardo Preliminary Report By: Colleen Pichardo Electronically signed By Colleen Pichardo Dictated Date: 09/22/2025 4:02:12 PM Prelim Date: 09/22/2025 4:10:05 PM Sign Date: 09/22/2025 4:10:05 PM Ordering Provider: ASHLEY BARRIOS [facility]11-10-2025 NoteHNO ID: [id number] Author: GHISLAINE SHANKS RDMS Service: ? Author Type: Leave Manager Type: Progress Notes Filed: 09/22/2025 10:26 Note Text: Radiology Service Progress Note PATIENT NAME: Lukasz Diaz DATE OF SERVICE: September 22, 2025 TIME: 10:25 AM PATIENT IDENTITY VERIFICATION COMPLETED USING TWO (2) IDENTIFIERS: Name and Date of confirmed by patient verbally. FALL SCREENING: Has the patient had 2 falls in the last year or 1 fall with injury or currently using an Ambulatory Assistive Device (Walker, Cane, Wheelchair, Crutches, etc.)? No PATIENT GENDER DATA: Assigned female at . status: : No status: NO. PATIENT RELEVANT IMPLANT DATA REVIEWED: Not Applicable PATIENT PRESENTS WITH AN IMPLANTABLE OR ATTACHED DISPLAY ASSOCIATE: No RADIOLOGY DEPARTMENT: Ultrasound PERIPHERAL IV DATA: Not applicable SIGNED BY: Ghislaine Shanks RDMS RVT September 22, 2025 10:25 [facility]10-23-2025 NoteHNO ID: [id number] Author: ADALI AVILA APRN.STEFANIE Service: ? Author Type: Nurse Practitioner Type: Progress Notes Filed: 09/04/2025 16:05 Note Text: CHIEF COMPLAINT: Patient presents with: Recheck: Chronic diarrhea, intestinal malabsorption HPI Lukasz Diaz is a 44 year old female here today for Recheck (Chronic diarrhea, intestinal malabsorption ) follow up for celiac disease. -Has been doing good up until accidentally at gluten this Monday ( sister mistook Keto for GF pancakes) and woke up in the middle of the night with vomiting and diarrhea. -Can not tolerate red meat without vomiting since diagnosis. -BM daily in am, feels like completely emptied. Denies diarrhea unless ingesting red meat or gluten -Otherwise doing well no new complaints -Feels as if skin dryness over elbows has also improved since started GF diet. Current Outpatient Medications Medication Sig adalimumab 40 mg/0.4 mL subcutaneous syringe kit (HUMIRA (CF)) Inject 40 mg subcutaneously one time a week. bacitracin 500 unit/gram pack USE 1 applicATION topically three times a day for 10 days] baclofen 5 mg tablet TAKE 1 TO 2 TABLETS BY MOUTH THREE TIMES DAILY x30 desvenlafaxine ER (PRISTIQ) 100 mg 24 hr tablet Take 1 tablet by mouth once daily. TRULICITY 4.5 mg/0.5 mL pen injector INJECT 4.5 mg subcutaneously every week] JARDIANCE 25 mg tablet Take 25 mg by mouth once daily. mirtazapine orally disintegrating (REMERON SOLTAB) 30 mg disintegrating tablet Take 30 mg by mouth daily at bedtime. ondansetron (ZOFRAN) 4 mg tablet Take 1 tablet by mouth every 12 hours as needed for nausea/vomiting. nadolol (CORGARD) 40 mg tablet Take 1 tablet by mouth two times a day. metFORMIN ER (GLUCOPHAGE XR) 500 mg 24 hr tablet Take 2 tablets by mouth two times a day. blood sugar diagnostic (BLOOD GLUCOSE TEST) test strip Test blood sugar(s) 2 times daily. Dx: Type 2 DM - Uncontrolled E11.65 Insulin: yes prazosin (MINIPRESS) 1 mg cap Take 3 caps AT BEDTIME for Anxiety No current facility-administered medications for this visit. ALLERGIES Allergen Reactions Lamictal [Lamotrigi* Other: See Comments Made her suicidal Toradol [Ketorolac] Shortness of Breath Elevates BP; dyspnea Zoloft [Sertraline * Other: See Comments suicidal. Adhesive Other: See Comments Per pt not allergic to adhesive tape - its paper tape that she's allergic to Ibuprofen Unknown Naproxen Other: See Comments Actos [Pioglitazone* Other: See Comments Sweats and chills Celexa [Citalopram] Intolerance Electrical shock feelings Eggs [Egg] GI Upset Fenofibrate GI Upset Lipitor [Atorvastat* Myalgia Plaquenil [Hydroxyc* Other: See Comments GI upset and pain Pravachol [Pravasta* GI Upset Zocor [Simvastatin] Myalgia SOCIAL HISTORY[1] PAST MEDICAL HISTORY Diagnosis Date Abnormal glandular Papanicolaou smear of cervix 10/05/2010 Controlled type 2 diabetes mellitus without complication, without long-term current use of insulin (HCC) 05/03/2016 Current use of proton pump inhibitor 11/15/2016 Mg checked 01/2017 DUB (dysfunctional uterine bleeding) 01/18/2013 Dyslipidemia 06/05/2014 Elevated LFTs 06/10/2015 Erythrocytosis 03/27/2022 Seen Hematology 09/2018 with neg w/u Essential hypertension with goal blood pressure less than 130/85 04/26/2016 Fatty liver 06/13/2014 Gastroesophageal reflux disease without esophagitis 06/10/2015 Resolved. Generalized anxiety disorder 01/02/2016 Hypomagnesemia 04/02/2019 Large breasts 08/23/2017 Had breast reduction 02/16/2018 Mild intermittent asthma without complication ([facility]) 11/15/2016 Moderate episode of recurrent major depressive disorder ([facility]) 11/15/2016 Morbid obesity with body mass index (BMI) of 45.0 to 49.9 in adult ([facility]) 07/13/2017 Muscle spasm 08/23/2017 MVP (mitral valve prolapse) Neck pain on left side 08/23/2017 Obesity (BMI 30-39.9) 07/13/2017 PCOS (polycystic ovarian syndrome) 01/18/2013 PTSD (post-traumatic stress disorder) 01/02/2016 Pulmonary HTN ([facility]) Seeing Dr. Campbell Routine gynecological examination Sees Dr. Estrada Seronegative rheumatoid arthritis ([facility]) 07/26/2019 Seeing [facility] Suicidal behavior with attempted self-injury ([facility]) 08/19/2020 08/17/2020: overdose on muscle relaxors, Sent to inpatient unit [facility] Suicidal behavior with attempted self-injury ([facility]) 08/19/2020 08/17/2020: overdose on muscle relaxors, Sent to inpatient unit [facility] Type 2 diabetes mellitus with hyperglycemia, without long-term current use of insulin ([facility]) 05/03/2016 Vitamin D deficiency 02/21/2019 PAST SURGICAL HISTORY Procedure Laterality Date *STRESS TEST PC 02/2015 NL APPENDECTOMY 14y/o open case CARPAL TUNNEL [phone] COLONOSCOPY 02/14/2024 normal colon COLONOSCOPY FLX DX W/COLLJ SPEC WHEN PFRMD 08/05/2015 Colonoscopy out pt [facility] EGD 02/14/2024 ESOPHAGOGASTRODUODENOSCOPY TRANSORAL DIAGNOSTIC 08/05/2015 EGD out pt [facility] HYSTERECTO (more content not included)...[facility]10-06-2025 NoteHNO ID: [id number] Author: YARY ROWE APRN.MAT MAN Service: ? Author Type: Nurse Practitioner Type: Progress Notes Filed: 08/18/2025 16:20 Note Text: [facility] Sandy Diaz is a 44 year old female. Patient presents with: Derm Problem: Sore skin under stomach folds x 5 days HPI The patient is a 44-year-old female presenting for evaluation of a sore underneath abdominal folds. - Onset 4-5 days ago after a pool therapy session. - Describes the area as cracked and sore. - Applying bacitracin without improvement. - Denies pruritus. - Cancelled pool therapy sessions due to discomfort. - Denies fever or myalgias. - No history of similar skin issues or yeast infections. - Allergies: Penicillin and Toradol. Review of Systems Skin: (+) Sore/craked rash (-) ulbilical (-) pruritus PAST MEDICAL HISTORY Diagnosis Date Abnormal glandular Papanicolaou smear of cervix 10/05/2010 Controlled type 2 diabetes mellitus without complication, without long-term current use of insulin ([facility]) 05/03/2016 Current use of proton pump inhibitor 11/15/2016 Mg checked 01/2017 DUB (dysfunctional uterine bleeding) 01/18/2013 Dyslipidemia 06/05/2014 Elevated LFTs 06/10/2015 Erythrocytosis 03/27/2022 Seen Hematology 09/2018 with neg w/u Essential hypertension with goal blood pressure less than 130/85 04/26/2016 Fatty liver 06/13/2014 Gastroesophageal reflux disease without esophagitis 06/10/2015 Resolved. Generalized anxiety disorder 01/02/2016 Hypomagnesemia 04/02/2019 Large breasts 08/23/2017 Had breast reduction 02/16/2018 Mild intermittent asthma without complication ([facility]) 11/15/2016 Moderate episode of recurrent major depressive disorder ([facility]) 11/15/2016 Morbid obesity with body mass index (BMI) of 45.0 to 49.9 in adult ([facility]) 07/13/2017 Muscle spasm 08/23/2017 MVP (mitral valve prolapse) Neck pain on left side 08/23/2017 Obesity (BMI 30-39.9) 07/13/2017 PCOS (polycystic ovarian syndrome) 01/18/2013 PTSD (post-traumatic stress disorder) 01/02/2016 Pulmonary HTN ([facility]) Seeing Dr. Campbell Routine gynecological examination Sees Dr. Estrada Seronegative rheumatoid arthritis ([facility]) 07/26/2019 Seeing [facility] Suicidal behavior with attempted self-injury ([facility]) 08/19/2020 08/17/2020: overdose on muscle relaxors, Sent to inpatient unit [facility] Suicidal behavior with attempted self-injury ([facility]) 08/19/2020 08/17/2020: overdose on muscle relaxors, Sent to inpatient unit [facility] Type 2 diabetes mellitus with hyperglycemia, without long-term current use of insulin ([facility]) 05/03/2016 Vitamin D deficiency 02/21/2019 PAST SURGICAL HISTORY Procedure Laterality Date *STRESS TEST PC 02/2015 NL APPENDECTOMY 14y/o open case CARPAL TUNNEL [id number] COLONOSCOPY 02/14/2024 normal colon COLONOSCOPY FLX DX W/COLLJ SPEC WHEN PFRMD 08/05/2015 Colonoscopy out pt [facility] EGD 02/14/2024 ESOPHAGOGASTRODUODENOSCOPY TRANSORAL DIAGNOSTIC 08/05/2015 EGD out pt [facility] HYSTERECTOMY HX LAPAROSCOPY SURG CHOLECYSTECTOMY [phone] Cholecystectomy, lap PAST SURGICAL HISTORY OF 02/2014 right meniscus repair PAST SURGICAL HISTORY OF 01/18/2017 right medial meniscal tear repair PAST SURGICAL HISTORY OF 02/2018 breast reduction surgery PAST SURGICAL HISTORY OF Right meniscus repair ALLERGIES Lamictal [Lamotrigine], Toradol [Ketorolac], Zoloft [Sertraline Hcl], Adhesive, Ibuprofen, Naproxen, Psyllium, Actos [Pioglitazone Hcl], Celexa [Citalopram], Eggs [Egg], Fenofibrate, Lipitor [Atorvastatin], Plaquenil [Hydroxychloroquine], Pravachol [Pravastatin Sodium], and Zocor [Simvastatin] MEDICATIONS ondansetron (ZOFRAN) 4 mg tablet Take 1 tablet by mouth every 12 hours as needed for nausea/vomiting. sulfaSALAzine (AZULFIDINE) 500 mg tablet Take 5 tablets by mouth once daily. Per Rheumatology dicyclomine (BENTYL) 20 mg tablet Take one tablet by mouth three times daily as needed for abdominal cramping JARDIANCE 10 mg tablet Take 1 tablet by mouth every afternoon. TRUE METRIX GLUCOSE METER as directed. promethazine (PHENERGAN) 25 mg tablet Take 1 tablet by mouth every 4 hours as needed for nausea/vomiting. nadolol (CORGARD) 40 mg tablet Take 1 tablet by mouth two times a day. dulaglutide (TRULICITY) 1.5 mg/0.5 mL pen injector Inject 1.5 mg subcutaneously one time a week. Inject once per week. Discard Pen After omeprazole (PRILOSEC) 40 mg capsule Take 1 capsule by mouth once daily. metFORMIN ER (GLUCOPHAGE XR) 500 mg 24 hr tablet Take 2 tablets by mouth two times a day. desvenlafaxine 100 mg Tb24 Take 1 Tablet By Oral Route 1 time per day mirtazapine (REMERON) 15 mg tablet Take 1 Tablet By Oral Route at bedtime. Insulin [place], Disposable, (PEN NEEDLE) 29 gauge x 1/2 Use one needle per dose. one per day blood sugar diagnostic (BLOOD GLUCOSE TEST) test strip Test blood sugar(s) 2 times daily. Dx: Type 2 DM - Uncontrolled E11.65 Insulin: yes Lancets (more content not included)...[facility]10-03-2025 Telephone encounter Note* Telephone Encounter - Sharon Blackman - 08/15/2025 10:36 AM EDT Medication Access Team coordinated the following [facility] Clinics: Rheumatology/Nephrology Prior Authorization Per the patient's insurance provider, [facility], the prior authorization for Adalimumab 40 MG/0.4ML Prefilled Syringe Kit citrate free (on-label) was approved. (4 pens per 28 days) [facility] can fill. The pharmacy will contact the patient to arrange delivery. Non-Oncology Specialty Prescriptions: 1, 8-10 min Sharon Blackman CPhT. Prior Animal Tech [facility]10-03-2025 Miscellaneous Notes* Telephone Encounter - Sharon Blackman - 08/15/2025 10:36 AM EDT Medication Access Team coordinated the following [facility]: Rheumatology/Nephrology Prior Authorization Per the patient's insurance provider, [employer], the prior authorization for Adalimumab 40 MG/0.4ML Prefilled Syringe Kit citrate free (on-label) was approved. (4 pens per 28 days) [facility] can fill. The pharmacy will contact the patient to arrange delivery. Non-Oncology Specialty Prescriptions: 1, 8-10 min Sharon Blackman CPhT. Prior Animal Tech [facility] Discharge [facility] Medical Records Department [address] [place] [address] Emergency Department Summary 08/05/25 MR#: [id number] Acct: [id number] Name: LUKASZ DIAZ Rep #:[id number] : 1980 44 From: Joey Hernández DO PCP: Dr. Esteban Ware MD Status:REG ER Location: ED HPI HPI - GI History of Present Illness Chief Complaint: Abd Pain Detail of Chief Complaint: Abdominal pain Informant: patient Narrative Narrative: Patient presents to the emergency department complaint of abdominal pain that started gradually around 2 AM. Describes pain in the right lower abdomen. She has had similar pain in the past with history of ovarian cysts. She was seen bymyself in the emergency department on July 22 with similar type pain. At that time she was going to follow-up with [facility] as she initially had been diagnosed with a right ovarian mass however on our investigation in the emergency department at that time it wasnoted that her mass had resolved and atthat time she had CT scan of the abdomen pelvis as well as apelvic ultrasound to rule out torsion. It was felt at that time she may have had a complex hemorrhagic cyst that had resolved. Patient states that her pain eventually resolved and she had been doing well since that time until last evening. She denies urinary symptoms. She does have history of kidney stones. Pain does notradiate to her back. She has had no fever. [facility] Medical History (Updated 08/05/25 @ 15:[address] Joey Hernández, DO) Ovarian mass, left Back problem Kidney stone PCOS (polycystic ovarian syndrome) Rheumatoid arthritis Bursitis of left shoulder MVP (mitral valve prolapse) Celiac disease Lupus Carpal tunnel syndrome Diabetes Pulmonary hypertension Hyperlipidemia Home Medications ?Medication ?Instructions ?Recorded ?Last Taken ?Type blood-glucose meter (Accu-Chek #1 ea 05/08/24 Unknown Rx Guide Glucose Meter) lancets (Accu-Chek Fastclix Lancet #100 ea 05/08/24 Un known Rx Drum) ondansetron HCl 4 mg tablet 4 mg PO QDAY PRN 01/09/25 Unknown History desvenlafaxine succinate 100 mg 100 mg PO DAILY #30 ta bs 01/13/25 Unknown Rx tablet,extended release 24 hr adalimumab 40 mg/0.4 mL 40 mg subcut Q2W 05/01/25 Un known History subcutaneous syringe kit (Humira(CF)) blood sugar diagnostic (Accu-Chek #100 ea 05/14/25 Unk nown Rx Nathalie Plus test strips) cyclobenzaprine 5 mg tablet 5 mg PO TID PRN muscle spa sm #30 06/05/25 Unknown Rx tabs nadolol 40 mg tablet 40 mg PO QDAY #90 tabs 06/23 Unknown Rx mirtazapine 30 mg tablet 30 mg PO QHS 06/26/25 Unknow n History prazosin 1 mg capsule 3 mg PO QHS 06/26/25 Unknown History empagliflozin 25 mg tablet 25 mg PO DAILY #90 tabs Unknown Rx bacitracin 500 unit/gram topical 1 applic topical TID 10 days #144 07/31/25 Unknown Rx packet ea dulaglutide 4.5 mg/0.5 mL 4.5 mg (0.5 mL) subcut QWEEK #2 mL 07/31/25 Unknown Rx subcutaneous pen injector hydrocodone-acetaminophen 5-325mg 1 tab PO Q4H PRN PRN Pain 2 days 08/05/25 Unknown Rx 5mg-325mg #10 TABLETS metformin 500 mg tablet,extended 1,000 mg (2 x 500 mg) PO BID #360 08/05/25 Unknown Rx release 24 hr tabs Allergy/AdvReac Type Severity Reaction Status Date / Time hydroxychloroquine (From Allergy Intermediate GI issues Verified 08/05/25 12:42 Plaquenil) adhesive tape (paper tape) Allergy Other Verified 08/05/25 12:42 ketorolac tromethamine (From Allergy Shortness Verified 08/05/25 12:42 Toradol) of breath naproxen sodium (From Aleve) Allergy Shortness Verified 08/05/25 12:42 of breath Penicillins Allergy Rash Verified 08/05/25 12:42 Family History Mother Autoimmune disease lupus Parkinson disease Hypertension Grandfather Colon cancer Father Hypertension Myocardial infarction, Onset Age: 51 Grandmother Breast cancer Sister Crohn's disease Surgical History S/P partial hysterectomy H/O lateral meniscus repair of right knee History of carpal tunnel surgery Hx of reduction mammoplasty Hx of appendectomy Hx of cholecystectomy Social History adopted: No household members: family current occupational status: unemployed pets and animals: Yes (2) pets and animals: cat(s) sexually active: No Smoking Status: Former smoker quit date: 11/13/13 pack-years: 15 Tobacco: How many years used: 20 Electronic Cigarette Use: not used alcohol intake: never substance use type: does not use diet: gluten free caffeine: Yes (1) Type: coffee frequency: does not exercise seatbelt use: always do you feel safe at home: Yes ROS ROS ED Review of Systems ROS Unobtainable: other Constitutional Constitutional ED: Reports lethargy; Denies chills, fever(s), sweats or weight loss Eyes Eyes: Denies blurry vision, change in vision or diplopia ENT ENT ED: Denies rhinorrhea or sore throat Cardiovascular Cardiovascular: Denies chest pain, orthopnea or racing heartbeat Respiratory/Chest Respiratory/Chest: Denies cough, dyspnea, dyspnea on exertion, orthopnea or sputum Gastrointestinal Gastrointestinal: Reports abdominal pain; Denies diarrhea, nausea or vomiting Genitourinary Genitourinary ED: Denies dysuria, hematuria or urinary frequency Musculoskeletal Musculoskeletal: Denies arthralgias, back pain, myalgias or neck pain Integumentary Denies abscess, Abrasions or rash Neurologic Neurologic: Denies headache(s) or weakness Psychiatric Psychiatric: Denies anxiety, depression or suicidal thoughts Endocrine Endocrinology: Denies polydipsia, polyphagia or polyuria Hematologic/Lymphatic Hematologic/Lymphatic: Denies easy bleeding, easy bruising or lymphadenopathy Allergic/Immunologic Allergic/Immunologic ED: Denies mouth swelling, tongue swelling or urticaria EXAM Physical Exam Const Vital Signs: 08/05/25 12:39 Temperature 98.3 F Temperature Source Oral Pulse Rate 85 Respiratory Rate 16 Blood Pressure 129/93 H Blood Pressure Mean 105 Pulse Ox 100 Oxygen Delivery Method Room Air Positive well nourished and well developed General Appearance ED: well developed and NAD HEENT Reports TM's clear and moist mucous membranes normocephalic and atraumatic; Negative for trauma or tenderness Tympanic Membrane ED: Yes TM's clear Eyes PERRL and EOMs intact bilaterally General Eye ED: Negative for pale conjunctiva or scleral icterus Neck no lymphadenopathy, supple and no JVD General: Negative for tenderness Chest Wall inspection of chest normal and palpation of chest normal Chest: Negative for tenderness Resp normal respiratory effort and clear to auscultation bilaterally Effort and Inspection: Negative for respiratory distress or pain with movement Auscultation: Negative for rhonchi, wheezes or diminished lung sounds Cardio regular rate, regular rhythm, S1 normal heart sound, S2 normal heart sound and no murmurs Peripheral Pulses: pulses 2+ throughout GI normal to inspection, nondistended, normoactive bowel sounds, soft to palpation,non-distended and no masses GI Narrative: Tenderness palpation to the right lower quadrant with some mild guarding. Thereis no rebound, rigidity, or peritoneal signs. No mass palpated Back/Spine no CVA tenderness and no thoracic nor lumbar tenderness Extremity normal to inspection General Extremety ED: Negative for edema General Extremity: Negative for edema Neuro oriented x3, CN's II-XII intact bilaterally, no sensory deficits noted and gait normal Sensorium / Orientation: awake, alert, oriented to person, oriented to place andoriented to time Motor Exam: strength 5/5 throughout and strength abnormal Psych mental status grossly normal Skin no rashes or lesions noted and no wounds MDM MDM MDM Narrative Medical decision making narrative: Patient presents with right lower abdomen pain with prior history of kidney stones and history of ovarian cyst. Nontoxic-appearing on exam. In the differential would be kidney stone versus ovarian cyst or possible bowel obstruction or other acute etiology. IV line established. CBC with differential patient awakened at 9.8 with hemoglobin 15.2 and platelet count of 214. Chemistries unremarkable. CT scan of the abdomen pelvis without contrast was unremarkable. Patient was medicated with Dilaudid and Zofran and had good pain relief. Lab Data Attestation: I reviewed the patient's lab results. Labs: Laboratory Results - last 24 hr 08/05/25 08/05/25 13:40 14:00 WBC 9.8 RBC 4.97 Hgb 15.2 H Hct 44.4 MCV 89.3 MCH 30.6 MCHC 34.2 RDW Std Deviation 41.6 RDW Coeff of Chang 12.8 Plt Count 214 MPV 11.4 Immature Gran % (Auto) 0.100 Neut % (Auto) 53.4 Lymph % (Auto) 34.7 [place] % (Auto) 10.1 H Eos % (Auto) 1.0 Baso % (Auto) 0.7 Absolute Neuts (auto) 5.2 Absolute Lymphs (auto) 3.40 Nucleated RBC % 0 Sodium 135 Potassium 4.1 Chloride 101 Carbon Dioxide 21.1 Anion Gap 13 BUN 13 Creatinine 0.55 L Estim Creat Clear Calc 175.72 Est GFR (MDRD) Non-Af 117 BUN/Creatinine Ratio 22.9 H Glucose 150 H Calcium 9.0 Urine Color Cancelled Urine Clarity Cancelled Urine pH Cancelled Ur Specific Cory Cancelled U Specif Grav (Refrac) Cancelled Urine Protein Cancelled Urine Glucose (UA) Cancelled Urine Ketones Cancelled Urine Occult Blood Cancelled Urine Nitrite Cancelled Urine Bilirubin Cancelled Urine Urobilinogen Cancelled Ur Leukocyte Esterase Cancelled Urine RBC Cancelled Urine WBC Cancelled Ur Squamous Epith Cells Cancelled Ur Transition Epith Cell Cancelled Ur Renal Epithelial Cell Cancelled Calcium Oxalate Crystal Cancelled Uric Acid Crystals Cancelled Triple Phos Crystals Cancelled Other Crystals Cancelled Amorphous Sediment Cancelled Urine Bacteria Cancelled Hyaline Casts Cancelled Fine Granular Casts Cancelled Coarse Granular Casts Cancelled Waxy Casts Cancelled RBC Casts Cancelled WBC Casts Cancelled Urine Mucus Cancelled Urine Trichomonas Cancelled Urine Yeast Cancelled Radiography Diagnostic Testing: Clinical Impression(s) from Imaging Studies Abdomen/Pelvis CT 08/05/25 13:21 IMPRESSION: No acute abdominopelvic abnormalities. Reading Location: [facility] Discharge Plan Triage Chief Complaint: Abd Pain ED Provider: Joey Hernández Dx/Rx/DC Orders Clinical Impression: Abdominal pain Instructions: ED Abdominal Pain Unkn Cause Fem Prescriptions: New hydrocodone-acetaminophen 5-325 mg tablet 1 tab PO Q4H PRN PRN (Reason: Pain) 2 Days Qty: 10 0RF No Action (DME) blood-glucose meter [Accu-Chek Guide Glucose Meter] Misc See Rx Instructions .Route Qty: 1 0RF Rx Instructions: As directed (DME) lancets [Accu-Chek Fastclix Lancet Drum] Misc See Rx Instructions .Route Qty: 100 0RF Rx Instructions: As directed ondansetron HCl 4 mg tablet 4 mg PO QDAY PRN Humira(CF) 40 mg/0.4 mL syringe kit 40 mg subcut Q2W dulaglutide 4.5 mg/0.5 mL pen injector 4.5 mg subcut QWEEK Qty: 2 1RF bacitracin 500 unit/gram packet 1 applic topical TID 10 Days Qty: 144 0RF prazosin 1 mg capsule 3 mg PO QHS Rx Instructions: 3mgs mirtazapine 30 mg tablet 30 mg PO QHS desvenlafaxine succinate 100 mg tablet extended release 24 hr 100 mg PO DAILY Qty: 30 0RF (DME) Accu-Chek Nathalie Plus test strp Strip See Rx Instructions .Route Qty: 100 0RF Rx Instructions: As directed 1-2 times per day cyclobenzaprine 5 mg tablet 5 mg PO TID PRN (Reason: muscle spasm) Qty: 30 0RF nadolol 40 mg tablet 40 mg PO QDAY Qty: 90 0RF empagliflozin 25 mg tablet 25 mg PO DAILY Qty: 90 1RF metformin 500 mg tablet extended release 24 hr 1,000 mg PO BID Qty: 360 0RF Rx Instructions: 2000mg daily Primary Care Provider: Esteban Ware Referrals: Esteban Ware MD [Primary Care Provider, Internal Medicine] - 3-5 Days Activity Restrictions/Additional Instructions: Keep your appointment with Dr. Disla. Print Language: Cape Verdean Disposition Disposition: Home, Self Care What to do if you have Problems For any increased pain, shortness of breath, bleeding, nausea or vomiting, chestpain, or any unexpected problems, contact your Primary Care Provider. Call [facility] ([phone]) or report tothe closest Emergency Room. Call 911 if necessary. 08/05/25 1608 Cosigner Signature (if applicable): CC: Dr. Esteban Ware MD ~ Signed [facility]09-23-2025 Radiology Diagnostic study note [facility] Imaging Services [address] [place] [address] Abdomen/Pelvis without Cont MR#: [id number] Acct: [id number] Name: LUKASZ DIAZ Rep #: [id number] : 1980 F 44 From: Evens Melton MD PCP: Dr. Esteban Ware MD Status: REG ER Study:Abdomen/Pelvis without Cont Date of Exa m: 08/05/25 Exam# [id number] Ordering Dr: Fina Hernández DO PROCEDURE: ABDOMEN/PELVIS WITHOUT CONT 08/05/2025 REASON FOR EXAM: RLQ PAIN, HX APPENDECTOMY, HX OVARIAN CYST TECHNIQUE: Procedure Code: CTABDPEL Modality: CT Procedure: ABDOMEN/PELVIS WITHOUT CONT Noncontrast technique limits evaluation of the abdominal and pelvic viscera. Coronal and Sagittal reconstruction series were provided. One or more dose reduction techniques were used (e.g., Automated exposure control, adjustment of the mA and/or kV according to patient size, use of iterative reconstruction technique). RADIATION DOSE SUMMARY: CTDlvol: 22.8 mGy DLP: 1270.09 mGycm COMPARISON: CT abdomen and pelvis FINDINGS: Lung bases: Clear. Liver: Unremarkable. Gallbladder: Status post cholecystectomy. Spleen: Unremarkable. Pancreas: Unremarkable. Adrenals: Unremarkable. Kidneys: No hydronephrosis or nephrolithiasis. Bladder: Decompressed. Reproductive Organs: Unremarkable. Bowel: No bowel wall obstruction. No bowel wall thickening. Appendix: Unremarkable. Lymph nodes: No lymphadenopathy. Vasculature: No aneurysm. Peritoneum / Retroperitoneum: No free air or free fluid. Bones: No acute bony abnormalities. CT/Abdomen/Pelvis without Cont IMPRESSION: No acute abdominopelvic abnormalities. Reading Location: [facility] CC: Dr. Esteban Ware MD; Dr. Joey Hernández DO ~ Chef Manager: Signed [facility]09-23-2025 Discharge summary Author Joey Hernández [facility] Note Date/Time August 05, 2025 4:08pm [facility] Medical Records Department [address] [place] [address] Emergency Department Summary 08/05/25 MR#: [id number] Acct: [id number] Name: LUKASZ DIAZ Rep #:[id number] : 1980 44 From: Joey Hernández DO PCP: Dr. Esteban Ware MD Status:REG ER Location: ED HPI HPI - GI History of Present Illness Chief Complaint: Abd Pain Detail of Chief Complaint: Abdominal pain Informant: patient Narrative Narrative: Patient presents to the emergency department complaint of abdominal pain that started gradually around 2 AM. Describes pain in the right lower abdomen. She has had similar pain in the past with history of ovarian cysts. She was seen bymyself in the emergency department on July 22 with similar type pain. At that time she was going to follow-up with [facility] as she initially had been diagnosed with a right ovarian mass however on our investigation in the emergency department at that time it was noted that her mass had resolved and atthat time she had CT scan of the abdomen pelvis as well as a pelvic ultrasound to rule out torsion. It was felt at that time she may have had a complex hemorrhagic cyst that had resolved. Patient states that her pain eventually resolved and she had been doing well since that time until last evening. She denies urinary symptoms. She does have history of kidney stones. Pain does notradiate to her back. She has had no fever. [facility] Medical History (Updated 08/05/25 @ 15:[address] Joey Hernández DO) Ovarian mass, left Back problem Kidney stone PCOS (polycystic ovarian syndrome) Rheumatoid arthritis Bursitis of left shoulder MVP (mitral valve prolapse) Celiac disease Lupus Carpal tunnel syndrome Diabetes Pulmonary hypertension Hyperlipidemia Home Medications ?Medication ?Instructions ?Recorded ?Last Taken ?Type blood-glucose meter (Accu-Chek #1 ea 05/08/24 Unknown Rx Guide Glucose Meter) lancets (Accu-Chek Fastclix Lancet #100 ea 05/08/24 Un known Rx Drum) ondansetron HCl 4 mg tablet 4 mg PO QDAY PRN 01/09/25 Unknown History desvenlafaxine succinate 100 mg 100 mg PO DAILY #30 ta bs 01/13/25 Unknown Rx tablet,extended release 24 hr adalimumab 40 mg/0.4 mL 40 mg subcut Q2W 05/01/25 Un known History subcutaneous syringe kit (Digital Guardian()) blood sugar diagnostic (Accu-Chek #100 ea 05/14/25 Unk nown Rx Nathalie Plus test strips) cyclobenzaprine 5 mg tablet 5 mg PO TID PRN muscle spa sm #30 06/05/25 Unknown Rx tabs nadolol 40 mg tablet 40 mg PO QDAY #90 tabs 06/23 Unknown Rx mirtazapine 30 mg tablet 30 mg PO QHS 06/26/25 Unknow n History prazosin 1 mg capsule 3 mg PO QHS 06/26/25 Unknown History empagliflozin 25 mg tablet 25 mg PO DAILY #90 tabs Unknown Rx bacitracin 500 unit/gram topical 1 applic topical TID 10 days #144 07/31/25 Unknown Rx packet ea dulaglutide 4.5 mg/0.5 mL 4.5 mg (0.5 mL) subcut QWEEK #2 mL 07/31/25 Unknown Rx subcutaneous pen injector hydrocodone-acetaminophen 5-325mg 1 tab PO Q4H PRN PRN Pain 2 days 08/05/25 Unknown Rx 5mg-325mg #10 TABLETS metformin 500 mg tablet,extended 1,000 mg (2 x 500 mg) PO BID #360 08/05/25 Unknown Rx release 24 hr tabs Allergy/AdvReac Type Severity Reaction Status Date / Time hydroxychloroquine (From Allergy Intermediate GI issues Verified 08/05/25 12:42 Plaquenil) adhesive tape (paper tape) Allergy Other Verified 08/05/25 12:42 ketorolac tromethamine (From Allergy Shortness Verified 08/05/25 12:42 Toradol) of breath naproxen sodium (From Aleve) Allergy Shortness Verified 08/05/25 12:42 of breath Penicillins Allergy Rash Verified 08/05/25 12:42 Family History Mother Autoimmune disease lupus Parkinson disease Hypertension Grandfather Colon cancer Father Hypertension Myocardial infarction, Onset Age: 51 Grandmother Breast cancer Sister Crohn's disease Surgical History S/P partial hysterectomy H/O lateral meniscus repair of right knee History of carpal tunnel surgery Hx of reduction mammoplasty Hx of appendectomy Hx of cholecystectomy Social History adopted: No household members: family current occupational status: unemployed pets and animals: Yes (2) pets and animals: cat(s) sexually active: No Smoking Status: Former smoker quit date: 11/13/13 pack-years: 15 Tobacco: How many years used: 20 Electronic Cigarette Use: not used alcohol intake: never substance use type: does not use diet: gluten free caffeine: Yes (1) Type: coffee frequency: does not exercise seatbelt use: always do you feel safe at home: Yes ROS ROS ED Review of Systems ROS Unobtainable: other Constitutional Constitutional ED: Reports lethargy; Denies chills, fever(s), sweats or weight loss Eyes Eyes: Denies blurry vision, change in vision or diplopia ENT ENT ED: Denies rhinorrhea or sore throat Cardiovascular Cardiovascular: Denies chest pain, orthopnea or racing heartbeat Respiratory/Chest Respiratory/Chest: Denies cough, dyspnea, dyspnea on exertion, orthopnea or sputum Gastrointestinal Gastrointestinal: Reports abdominal pain; Denies diarrhea, nausea or vomiting Genitourinary Genitourinary ED: Denies dysuria, hematuria or urinary frequency Musculoskeletal Musculoskeletal: Denies arthralgias, back pain, myalgias or neck pain Integumentary Denies abscess, Abrasions or rash Neurologic Neurologic: Denies headache(s) or weakness Psychiatric Psychiatric: Denies anxiety, depression or suicidal thoughts Endocrine Endocrinology: Denies polydipsia, polyphagia or polyuria Hematologic/Lymphatic Hematologic/Lymphatic: Denies easy bleeding, easy bruising or lymphadenopathy Allergic/Immunologic Allergic/Immunologic ED: Denies mouth swelling, tongue swelling or urticaria EXAM Physical Exam Const Vital Signs: 08/05/25 12:39 Temperature 98.3 F Temperature Source Oral Pulse Rate 85 Respiratory Rate 16 Blood Pressure 129/93 H Blood Pressure Mean 105 Pulse Ox 100 Oxygen Delivery Method Room Air Positive well nourished and well developed General Appearance ED: well developed and NAD HEENT Reports TM's clear and moist mucous membranes normocephalic and atraumatic; Negative for trauma or tenderness Tympanic Membrane ED: Yes TM's clear Eyes PERRL and EOMs intact bilaterally General Eye ED: Negative for pale conjunctiva or scleral icterus Neck no lymphadenopathy, supple and no JVD General: Negative for tenderness Chest Wall inspection of chest normal and palpation of chest normal Chest: Negative for tenderness Resp normal respiratory effort and clear to auscultation bilaterally Effort and Inspection: Negative for respiratory distress or pain with movement Auscultation: Negative for rhonchi, wheezes or diminished lung sounds Cardio regular rate, regular rhythm, S1 normal heart sound, S2 normal heart sound and no murmurs Peripheral Pulses: pulses 2+ throughout GI normal to inspection, nondistended, normoactive bowel sounds, soft to palpation,non-distended and no masses GI Narrative: Tenderness palpation to the right lower quadrant with some mild guarding. Thereis no rebound, rigidity, or peritoneal signs. No mass palpated Back/Spine no CVA tenderness and no thoracic nor lumbar tenderness Extremity normal to inspection General Extremety ED: Negative for edema General Extremity: Negative for edema Neuro oriented x3, CN's II-XII intact bilaterally, no sensory deficits noted and gait normal Sensorium / Orientation: awake, alert, oriented to person, oriented to place andoriented to time Motor Exam: strength 5/5 throughout and strength abnormal Psych mental status grossly normal Skin no rashes or lesions noted and no wounds MDM MDM MDM Narrative Medical decision making narrative: Patient presents with right lower abdomen pain with prior history of kidney stones and history of ovarian cyst. Nontoxic-appearing on exam. In the differential would be kidney stone versus ovarian cyst or possible bowel obstruction or other acute etiology. IV line established. CBC with differential patient awakened at 9.8 with hemoglobin 15.2 and platelet count of 214. Chemistries unremarkable. CT scan of the abdomen pelvis without contrast was unremarkable. Patient was medicated with Dilaudid and Zofran and had good pain relief. Lab Data Attestation: I reviewed the patient's lab results. Labs: Laboratory Results - last 24 hr 08/05/25 08/05/25 13:40 14:00 WBC 9.8 RBC 4.97 Hgb 15.2 H Hct 44.4 MCV 89.3 MCH 30.6 MCHC 34.2 RDW Std Deviation 41.6 RDW Coeff of Chang 12.8 Plt Count 214 MPV 11.4 Immature Gran % (Auto) 0.100 Neut % (Auto) 53.4 Lymph % (Auto) 34.7 [place] % (Auto) 10.1 H Eos % (Auto) 1.0 Baso % (Auto) 0.7 Absolute Neuts (auto) 5.2 Absolute Lymphs (auto) 3.40 Nucleated RBC % 0 Sodium 135 Potassium 4.1 Chloride 101 Carbon Dioxide 21.1 Anion Gap 13 BUN 13 Creatinine 0.55 L Estim Creat Clear Calc 175.72 Est GFR (MDRD) Non-Af 117 BUN/Creatinine Ratio 22.9 H Glucose 150 H Calcium 9.0 Urine Color Cancelled Urine Clarity Cancelled Urine pH Cancelled Ur Specific Cory Cancelled U Specif Grav (Refrac) Cancelled Urine Protein Cancelled Urine Glucose (UA) Cancelled Urine Ketones Cancelled Urine Occult Blood Cancelled Urine Nitrite Cancelled Urine Bilirubin Cancelled Urine Urobilinogen Cancelled Ur Leukocyte Esterase Cancelled Urine RBC Cancelled Urine WBC Cancelled Ur Squamous Epith Cells Cancelled Ur Transition Epith Cell Cancelled Ur Renal Epithelial Cell Cancelled Calcium Oxalate Crystal Cancelled Uric Acid Crystals Cancelled Triple Phos Crystals Cancelled Other Crystals Cancelled Amorphous Sediment Cancelled Urine Bacteria Cancelled Hyaline Casts Cancelled Fine Granular Casts Cancelled Coarse Granular Casts Cancelled Waxy Casts Cancelled RBC Casts Cancelled WBC Casts Cancelled Urine Mucus Cancelled Urine Trichomonas Cancelled Urine Yeast Cancelled Radiography Diagnostic Testing: Clinical Impression(s) from Imaging Studies Abdomen/Pelvis CT 08/05/25 13:21 IMPRESSION: No acute abdominopelvic abnormalities. Reading Location: [facility] Discharge Plan Triage Chief Complaint: Abd Pain ED Provider: Joey Hernández Dx/Rx/DC Orders Clinical Impression: Abdominal pain Instructions: ED Abdominal Pain Unkn Cause Fem Prescriptions: New hydrocodone-acetaminophen 5-325 mg tablet 1 tab PO Q4H PRN PRN (Reason: Pain) 2 Days Qty: 10 0RF No Action (DME) blood-glucose meter [Accu-Chek Guide Glucose Meter] Misc See Rx Instructions .Route Qty: 1 0RF Rx Instructions: As directed (DME) lancets [Accu-Chek Fastclix Lancet Drum] Misc See Rx Instructions .Route Qty: 100 0RF Rx Instructions: As directed ondansetron HCl 4 mg tablet 4 mg PO QDAY PRN Humira(CF) 40 mg/0.4 mL syringe kit 40 mg subcut Q2W dulaglutide 4.5 mg/0.5 mL pen injector 4.5 mg subcut QWEEK Qty: 2 1RF bacitracin 500 unit/gram packet 1 applic topical TID 10 Days Qty: 144 0RF prazosin 1 mg capsule 3 mg PO QHS Rx Instructions: 3mgs mirtazapine 30 mg tablet 30 mg PO QHS desvenlafaxine succinate 100 mg tablet extended release 24 hr 100 mg PO DAILY Qty: 30 0RF (DME) Accu-Chek Nathalie Plus test strp Strip See Rx Instructions .Route Qty: 100 0RF Rx Instructions: As directed 1-2 times per day cyclobenzaprine 5 mg tablet 5 mg PO TID PRN (Reason: muscle spasm) Qty: 30 0RF nadolol 40 mg tablet 40 mg PO QDAY Qty: 90 0RF empagliflozin 25 mg tablet 25 mg PO DAILY Qty: 90 1RF metformin 500 mg tablet extended release 24 hr 1,000 mg PO BID Qty: 360 0RF Rx Instructions: 2000mg daily Primary Care Provider: Esteban Ware Referrals: Esteban Ware MD [Primary Care Provider, Internal Medicine] - 3-5 Days Activity Restrictions/Additional Instructions: Keep your appointment with Dr. Disla. Print Language: Cape Verdean Disposition Disposition: Home, Self Care What to do if you have Problems For any increased pain, shortness of breath, bleeding, nausea or vomiting, chestpain, or any unexpected problems, contact your Primary Care Provider. Call [facility] ([phone]) or report to the closest Emergency Room. Call 911 if necessary. 08/05/25 1603 <Electronically signed by Joey Hernández DO> Cosigner Signature (if applicable): CC: Dr. Esteban Ware MD ~ Signed [facility] Work Phone: [phone] [facility] Internal [address] [place] [address] [place] [address] OFFICE VISIT Date of Service: 07/31/25 MR#: [id number] Acct: [id number] Name: LUKASZ DIAZ Rep #: [id number] : 1980 Provider: Dr. Katelyn Ware MD Age/Sex: 44/F [place] [facility] [place] [facility] [place]: Signed Intake Vital Signs 05/01/25 10:47 07/17/25 11:17 07/31/25 10:31 Height 5 ft 9 in 5 ft 9 in 5 ft 9 in Weight: 244 lb BMI 36.0 BP 126/80 H Blood Pressure Location Lt brachial Position Sitting Respiration 18 Pulse 84 Pulse Source Monitor Temp 96.8 F L Temp Source Temporal Pulse Oximetry (%) 98 Oxygen Delivery Method room air Intake Visit Reasons: 3 M FU Chief Complaint: 3 M FU Is patient in pain?: No Allergies hydroxychloroquine (From Plaquenil) Allergy (Intermediate, Verified 07/31/25 10:32) GI issues adhesive tape (paper tape) Allergy (Verified 07/31/25 10:32) Other ketorolac tromethamine (From Toradol) Allergy (Verified 07/31/25 10:32) Shortness of breath naproxen sodium (From Aleve) Allergy (Verified 07/31/25 10:32) Shortness of breath Penicillins Allergy (Verified 07/31/25 10:32) Rash Medications ?Medication ?Instructions ?Recorded ?Confirmed ?Type blood-glucose meter (Accu-Chek #1 ea 05/08/24 07/31/25 Rx Guide Glucose Meter) lancets (Accu-Chek Fastclix Lancet #100 ea 05/08/24 Rx Drum) ondansetron HCl 4 mg tablet 4 mg PO QDAY PRN 01/09/25 07/31/25 History desvenlafaxine succinate 100 mg 100 mg PO DAILY #30 ta bs 01/13/25 07/31/25 Rx tablet,extended release 24 hr adalimumab 40 mg/0.4 mL 40 mg subcut Q2W 05/01/25 History subcutaneous syringe kit (Humira(CF)) blood sugar diagnostic (Accu-Chek #100 ea 05/14/25 Rx Nathalie Plus test strips) cyclobenzaprine 5 mg tablet 5 mg PO TID PRN muscle spa sm #30 06/05/25 07/31/25 Rx tabs nadolol 40 mg tablet 40 mg PO QDAY #90 tabs 06/2307/31/25 Rx metformin 500 mg tablet,extended 1,000 mg PO BID 06/2607/31/25 History release 24 hr mirtazapine 30 mg tablet 30 mg PO QHS 06/26/25 History prazosin 1 mg capsule 3 mg PO QHS 06/26/25 5 History empagliflozin 25 mg tablet 25 mg PO DAILY #90 tabs 07/31/25 Rx bacitracin 500 unit/gram topical 1 applic topical TID 10 days #144 07/31/25 07/31/25 Rx packet ea dulaglutide 4.5 mg/0.5 mL 4.5 mg (0.5 mL) subcut QWEEK #2 mL 07/31/25 07/31/25 Rx subcutaneous pen injector Have you fallen in the past year?: Yes (x1) Nurse's Note: pt reports that she has a rash in her umbilicus area that was bleeding/raw when she got out of the pool after her therapy session pt declined to answer PHq9 and HENRY screeners citing the reason as she is seeing her counselor tomorrow and will be answering these questions with him. [facility] Medical History (Updated 07/31/25 @ 14:[address] Esteban Ware MD) Ovarian mass, left Back problem Kidney stone PCOS (polycystic ovarian syndrome) Rheumatoid arthritis Bursitis of left shoulder MVP (mitral valve prolapse) Celiac disease Lupus Carpal tunnel syndrome Diabetes Pulmonary hypertension Hyperlipidemia Surgical History S/P partial hysterectomy H/O lateral meniscus repair of right knee History of carpal tunnel surgery Hx of reduction mammoplasty Hx of appendectomy Hx of cholecystectomy Family History Mother Autoimmune disease lupus Parkinson disease Hypertension Grandfather Colon cancer Father Hypertension Myocardial infarction, Onset Age: 51 Grandmother Breast cancer Sister Crohn's disease Social History adopted: No household members: family current occupational status: unemployed pets and animals: Yes (2) pets and animals: cat(s) sexually active: No Smoking Status: Former smoker quit date: 11/13/13 pack-years: 15 Tobacco: How many years used: 20 Electronic Cigarette Use: not used alcohol intake: never substance use type: does not use diet: gluten free caffeine: Yes (1) Type: coffee frequency: does not exercise seatbelt use: always do you feel safe at home: Yes HPI HPI Chief Complaint: 3 M FU Details: LUKASZ DIAZ, is a 44 F who presents to the office today for a follow up. She is due for some routine blood work and never did her mammogram as previously ordered. She is due for her second shingrix and will get it at the pharmacy. She doesn't smoke and does need refills. She reports she is eating healthy. She reports she is active. She does check her sugars at home in the mornings. She reports it has been in the 200s for the last2 weeks. She reports she hasn't had jardiance for about 2months stating she misplaced her bottle. She reports she just restarted it about 1-2 weeks ago. Prior to that, she had been taking her medications as prescribed without problems. She does try to monitor her carbohydrate and sugarintake. She is up to date on her diabetic eye exam. She doesn't see podiatry. She doesn't check her blood pressure at home. She is taking her medication as prescribed without problems. She does try to monitor her salt intake. The patient has a history of depression and anxiety. She has had problems with her mental health since she was a teenager. She has been on these medications for a few years. She is doing well on her medications. She does follow with [facility] and sees them tomorrow. She sees them every 3 months which is beneficial. She denies any current concerns of depression/anxiety nor any thoughts of suicide. She follows with gastroenterology for her celiac disease and is trying to stick to the gluten free diet. She states she has been doing well with it. The patient continues to follow with rheumatology who is managing her medications. She reports she has been feeling better since getting placed on humira. She denies any problems. She rates her pain 2/10 currently primarily in her hands/back/knees and hips. The patient had been seen by Ghislaine Rodriguez NP, last month with complaints of pelvic pain. Work up showed a complex mass and she was referred to her OBGYN. She returned to the ED earlier this month. Repeat imaging was done which showedresolution of the mass (felt to be a hemorrhagic cyst) withoutother findings. She reports she is still having some pain which is unchanged. She did see pain management who felt it was musculoskeletal. She was started on baclofen, but itmakes her drowsy, so she can only take it at night. She reports she started aqua therapy yesterday and will be seeing a sports leadership instructor on Monday. She rates her pelvic pain 5/10 currently. The patient would like to have her umbilicus looked at. She reports it was looking 'yeasty.' She states she applied an anti-fungal cream (clotrimazole) and powder (miconazole) that she got from [facility]. She states it did help, but she is having some irritation around the umbilicus after going in [facility] yesterday and would like to have it looked at. She thinks there may be a small area that is cracked with mild blood, but denies any other drainage. She deniesany fevers or tenderness in that area. She has no questions or concerns at this time. ROS Const Constitutional: Positive for weight change (6 pound weight gain); No fever(s), frequent falls, headache(s) or weakness Eyes Eyes: No blurry vision, change in vision or visual disturbances ENT ENT: No abnormal hearing, hearing loss, nasal congestion, headache(s) or sore throat Resp Respiratory: No cough or shortness of breath Cardio Cardiology: No chest pain at rest, chest pain with exertion, shortness of breath, lightheadedness or palpitations Gastro GI: No abdominal pain, change in bowel habits, constipation, diarrhea, nausea/dyspepsia or vomiting Genitourinary-Female: Positive for pelvic pain; No difficulty urinating, burning urination or painful urination Musc Musculoskeletal: No numbness or tingling Skin Skin: No rash Neuro Neurology: No abnormal hearing, dizziness, weakness, frequent falls, headache(s), loss of vision, numbness, tingling, visual disturbances or fainting Psych Psychiatric: No anxiety, No depression, No Thoughts of harming yourself/Others and No suicidal ideation Endo Endocrine: Positive for weight change (6 pound weight gain) Exam Const General: cooperative, healthy appearing, no acute distress, well developed, not diaphoretic and notill appearing Nutritional Appearance: well nourished Orientation: alert and oriented x3 Limitations: mental status not altered [facility] Head: normal to inspection, normocephalic and atraumatic Ears: hearing grossly normal bilaterally Face and sinus: normal facial exam Mouth: oral mucosae normal and moist mucous membranes Teeth and gingiva: dentition normal and dentures (maxillary) Throat: posterior oropharynx normal Eyes Conjunctivae: conjunctivae normal Sclera: sclerae normal Pupils: PERRL Chest Chest palpation & inspection: normal inspection of the chest Resp Effort & Inspection: normal respiratory effort, able to speak in complete sentences, no audiblewheezes and no cough Auscultation: Bilateral: Clear to Auscultation Cardio Rate: regular rate Rhythm: regular rhythm Heart Sounds: S1 normal, S2 normal and no murmurs GI Inspection: non-distended Auscultation: normal bowel sounds Palpation: soft, no hepatosplenomegaly and nontender Skin General: no rashes or lesions noted and dry skin Wounds: no wounds Other: Mild cracking around the umbilicus with some skin irritation. No erythema, drainage, or increased warmth. Neuro General: patient alert and patient oriented x3 Cranial Nerves: PERRL Speech: speech normal Extrem General: normal to inspection and no edema Psych Appearance: grossly normal Affect: normal affect Attitude: cooperative Results POC A1C POC A1C 8.5 % Last Edit by Taryn Cummings LPN on 07/31/25 10:36 Coding Level of Care Code Off vis,est,level 4 Diagnoses Type 2 diabetes mellitus without complication, without long-term current use of insulin E11.9 Diabetes mellitus complication status: without complication Diabetes mellitus halfway insulin use: without halfway use Diabetes mellitus type: type 2 Essential hypertension I10 Multiple joint pain M25.50 Autoimmune disease M35.9 Mixed hyperlipidemia E78.2 Mitral valve prolapse I34.1 Anxiety and depression F41.9; F32.A Celiac disease K90.0 Pelvic pain R10.2 Umbilical abnormality Q89.9 Immunization due Z23 Time Spent (min) 30 Assessment and Plan Assessment and Plan (1) Diabetes: Status: Chronic Qualifiers: Diabetes mellitus complication status: without complication Diabetes mellitus long chain beamer insulin use: without halfway use Diabetes mellitus type: type 2 Qualified Code(s): E11.9 - Type 2 diabetes mellitus without complications Plan: A1c remains uncontrolled at 8.5, not significantly changed from 8.6 at her last office visit. Will increase her trulicity dose to 4.5mg weekly and monitor. Discussed diet and exercise. She is up to date on her eye exam and foot exam. (2) Essential hypertension: Status: Acute Plan: Blood pressure shows good control. Will continue current management and monitor. Discussed monitoring salt intake. (3) Multiple joint pain: Plan: Patient is still following with rheumatology and is doing well on the humira. Will continue to follow up on their findings and recommendations. (4) Autoimmune disease: Plan: As above. Patient reports being diagnosed with lupus and seronegative RA. (5) Mixed hyperlipidemia: Plan: The patient is not currently taking a statin. Patient encouraged to complete her blood work as previously ordered. Discussed diet and exercise. (6) Mitral valve prolapse: Plan: Patient takes the nadolol as above for this as well. She denies any symptoms and is no longer following with cardiology. Will continue to monitor. No murmur appreciated on exam today. (7) Anxiety and depression: Plan: Patient follows with psychiatry and does well on her medications. She denies any current concerns nor any thoughts of suicide. She scored 4 on her PHQ and 6on her HENRY at her last office visit. Will continue to follow up on findings andrecommendations. (8) Celiac disease: Plan: She continues to do well on a gluten free diet. She follows with GI. Will follow up on their findings and recommendations. (9) Pelvic pain: Status: Acute Plan: Patient has just started aqua therapy and will be seeing sports medicine next week. Will follow up on their findings and recommendations. (10) Umbilical abnormality: Plan: Exam as above. Although no signs of current infection, will treat with a short course of bacitracinand monitor. She was in agreement. (11) Immunization due: Plan: Patient is due for her second shingrix since she is immunocompromised. Due to her insurance, she was encouraged to get it at the pharmacy or health department. She was in agreement. The patient is here for a follow up. Plan as above. Medications reviewed with the patient. Routine follow up scheduled. The patient was instructed to call with any concerns or questions before then and they were in agreement. I spent a total of 30 minutes on the date of the service which included preparing to see the patient, [id number] patient care, completing clinical documentation, obtaining and/or reviewing separately obtained history Orders: Orders POC A1C Today E11.9 - Type 2 diabetes mellitus without complications Medications: New bacitracin 1 applic topical TID 144 ea 0RF 10 days Changed From dulaglutide 3 mg (0.5 mL) subcut QWEEK 2 mL 1RF To dulaglutide 4.5 mg (0.5 mL) subcut QWEEK 2 mL 1RF Plan Details Follow Up: 3 Months Clinical Quality Measures Falls Risk Screening/Assistive Devices Have you fallen in the past year?: Yes (x1) 07/31/25 1419 y MD> Date _ Esteban Ware MD Cosigner Signature: Date (if applicable) CC: ~ [facility]09-08-2025 Telephone encounter Note* Telephone Encounter - Lainey Moreno RN - 07/21/2025 8:58 AM EDT DARIEN 06/27/24 Next appt 09/04/25 Patient phones requesting refills as follows: Requested Prescriptions Pending Prescriptions Disp Refills ondansetron (ZOFRAN) 4 mg tablet 30 tablet 3 Sig: Take 1 tablet by mouth every 12 hours as needed for nausea/vomiting. Recent Dispenses 06/30/2025 4 mg tab (disp 30, 15d supply) 05/26/2025 4 mg tab (disp 30, 15d supply) 04/30/2025 4 mg tab (disp 30, 15d supply) 04/04/2025 4 mg tab (disp 30, 15d supply) 02/10/2025 4 mg tab (disp 30, 30d supply) Order pended Please review and advise. Lainey Moreno RN [facility]09-08-2025 Miscellaneous Notes* Telephone Encounter - Lainey Moreno RN - 07/21/2025 8:58 AM EDT DARIEN 06/27/24 Next appt 09/04/25 Patient phones requesting refills as follows: Requested Prescriptions Pending Prescriptions Disp Refills ondansetron (ZOFRAN) 4 mg tablet 30 tablet 3 Sig: Take 1 tablet by mouth every 12 hours as needed for nausea/vomiting. Recent Dispenses 06/30/2025 4 mg tab (disp 30, 15d supply) 05/26/2025 4 mg tab (disp 30, 15d supply) 04/30/2025 4 mg tab (disp 30, 15d supply) 04/04/2025 4 mg tab (disp 30, 15d supply) 02/10/2025 4 mg tab (disp 30, 30d supply) Order pended Please review and advise. Lainey Moreno RN documented in [facility] Radiology Diagnostic study note [facility] Imaging Services [address] [place] [address] Transvaginal Non- MR#: [id number] Acct: [id number] Name: LUKASZ DIAZ Rep #: [id number] : 1980 F 44 From: Edw yessy Robert MD PCP: Dr. Esteban Ware MD Status: REG ER Study:Transvaginal Non- Date of Exam: 07/17/25 Exam# [id number] Ordering Dr: Fina Hernández DO PROCEDURE: TRANSVAGINAL NON- 07/17/2025 REASON FOR EXAM: ABDOMINAL PAIN, LEFT OVARIAN MASS TECHNIQUE: Procedure Code: USTVAG Modality: US Procedure: TRANSVAGINAL NON- COMPARISON: July 17, 2025, July 04, 2025 FINDINGS: Measurements: Right Ovary: 4.6 x 2.8 x 3.1 cm. Left Ovary: 4.3 x 2.4 x 3.5 cm. Uterus: Hysterectomy Endometrium: Not applicable Right ovary: Unremarkable. Color and spectral Doppler was not performed on the right. Left ovary: Complex left ovarian mass no longer seen. Color and spectral Doppler is present. Other: No free fluid US/Transvaginal Non- IMPRESSION: 1. Hysterectomy 2. Complex left ovarian mass is no longer seen. This was likely a hemorrhagic cyst that has resolved. Reading Location: [id number] CC: Dr. Esteban Ware MD; Dr. Joey Hernández DO ~ Chef Manager: Signed [facility]09-04-2025 Radiology Diagnostic study note [facility] Imaging Services [address] [place] [address] [id number] Abdomen/Pelvis without Cont MR#: [id number] Acct: [id number] Name: LUKASZ DIAZ Rep #: [id number] : 1980 F 44 From: Ibrahima Tamez MD PCP: Dr. Esteban Ware MD Status: REG ER Study:Abdomen/Pelvis without Cont Date of Exa m: 07/17/25 Exam# [id number] Ordering Dr: Fina Hernández DO PROCEDURE: ABDOMEN/PELVIS WITHOUT CONT 07/17/2025 REASON FOR EXAM: ABDOMINAL PAIN 1-1/2 month history of abdominal pain. TECHNIQUE: Procedure Code: CTABDPEL Modality: CT Procedure: ABDOMEN/PELVIS WITHOUT CONT Noncontrast technique limits evaluation of the abdominal and pelvic viscera. Coronal and Sagittal reconstruction series were provided. One or more dose reduction techniques were used (e.g., Automated exposure control, adjustment of the mA and/or kV according to patient size, use of iterative reconstruction technique). RADIATION DOSE SUMMARY: CTDlvol: 22.39 mGy DLP: 1309.22 mGycm COMPARISON: None FINDINGS: Lung bases: The lung bases are clear. No coronary artery calcification seen. Liver: Borderline hepatomegaly. Gallbladder: Prior cholecystectomy. Spleen: Normal size. Pancreas: Normal size. No surrounding inflammation. Adrenals: Unremarkable. Kidneys: No urolithiasis. No hydronephrosis. Bladder: The urinary bladder is empty. Reproductive Organs: Prior hysterectomy. Adnexal regions are unremarkable. Bowel: Unremarkable Appendix: Prior appendectomy. Lymph nodes: Unremarkable. Vasculature: Mild diffuse atherosclerotic calcifications are noted. Peritoneum / Retroperitoneum: Unremarkable Bones: Degenerative changes of the spine. CT/Abdomen/Pelvis without Cont IMPRESSION: Borderline hepatomegaly. Status post cholecystectomy and appendectomy. No acute abnormality is seen. Reading Location: [id number] CC: Dr. Esteban Ware MD; Dr. Joey Hernández DO ~ Chef Manager: Signed [facility]09-02-2025 Telephone encounter Note* Telephone Encounter - Sharon Blackman - 07/15/2025 4:18 PM EDT Medication Access Team coordinated the following [facility] Clinics: Rheumatology/Nephrology Prior Authorization Per the patient's insurance provider, [employer], the prior authorization for Adalimumab 40 MG/0.4ML Prefilled Syringe Kit citrate free (on-label) was approved. (2 pens per 28 days) [facility] can fill. The pharmacy will contact the patient to arrange delivery. Non-Oncology Specialty Prescriptions: 1, 0-2 min Sharon Blackman CPhT. Prior Animal Tech [facility]09-02-2025 Miscellaneous Notes* Telephone Encounter - Sharon Blackman - 07/15/2025 4:18 PM EDT Medication Access Team coordinated the following [facility] Clinics: Rheumatology/Nephrology Prior Authorization Per the patient's insurance provider, [employer], the prior authorization for Adalimumab 40 MG/0.4ML Prefilled Syringe Kit citrate free (on-label) was approved. (2 pens per 28 days) [facility] can fill. The pharmacy will contact the patient to arrange delivery. Non-Oncology Specialty Prescriptions: 1, 0-2 min Sharon Blackman CPhT. Prior Animal Tech [facility] Radiology Diagnostic study note [facility] Imaging Services [address] [place], [place] [id number] Transvaginal Non- MR#: [id number] Acct: [id number] Name: LUKASZ DIAZ Rep #: [id number] : 1980 F 44 From: Ibrahima Tamez MD PCP: Dr. Esteban Ware MD Status: REG CLI Study:Transvaginal Non- Date of Exam: 07/04/25 Exam# [id number] Ordering Dr: Ghislaine Rodriguez PROCEDURE: TRANSVAGINAL NON- 07/04/2025 REASON FOR EXAM: RLQ PAIN Status post hysterectomy. TECHNIQUE: TRANSVAGINAL NON- COMPARISON: None FINDINGS: Measurements: Uterus: Status post hysterectomy. Right Ovary: 3.6 cm x 2.4 cm x 2.6 cm with a volume of 11.73 mL. Left Ovary: 6.2 cm x 6.4 cm x 5.3 cm with a volume of 110.74 mL. Right ovary: Normal size and echotexture. Left ovary: There is a 5.4 cm x 5.4 cm x 3.9 cm complex cystic mass in the left ovary. This may represent an endometrioma. Clinical correlation recommended. Other: No free fluid. US/Transvaginal Non- IMPRESSION: 5.4 cm x 5.4 cm x 3.9 cm complex mass in the left ovary as discussed. Clinical correlation recommended. Status post hysterectomy. Reading Location: [id number] CC: ENTRY LEVEL MANAGEMENT-Mina Rodriguez; Dr. Esteban Ware MD ~ Chef Manager: Signed [facility]08-07-2025 NoteHNO ID: [id number] Author: MABEL GARCIA APRN.MAT MAN Service: ? Author Type: Nurse Practitioner Type: Progress Notes Filed: 06/19/2025 17:32 Note Text: Sandy Diaz is a 44 year old female. HPI Patient presents today concern for possible recurrent shingles rash. She notes that about 3 days ago she developed an itchy irritating rash just above her left hip. She otherwise denies any fever cough congestion however she does note some fatigue. Review of Systems As above Objective BP 116/81 Pulse 83 Temp 36.4 ?C (97.6 ?F) Resp 18 Wt 109.2 kg (240 lb 11.9 oz) LMP 09/02/2015 SpO2 98% BMI 35.55 kg/m? Physical Exam Vitals and nursing note reviewed. Constitutional: General: She is not in acute distress. Appearance: Normal appearance. She is not ill-appearing. HENT: Head: Normocephalic. Pulmonary: Effort: Pulmonary effort is normal. Abdominal: Tenderness: There is no right CVA tenderness. Musculoskeletal: General: Normal range of motion. Skin: General: Skin is warm. Comments: Linear vesicular rash on erythematous base along the left flank just above the left hip. Neurological: General: No focal deficit present. Mental Status: She is alert and oriented to person, place, and time. Psychiatric: Mood and Affect: Mood normal. Behavior: Behavior normal. ASSESSMENT/PLAN: 1. Rash - ICD9: 782.1, ICD10: R21 -Patient was swabbed for herpes and due to patient's concern for recurrent herpes she was started on valacyclovir. Patient understands that if symptoms are not improving and the test is negative she will discontinue the medication however if symptoms do seem to be improving she may continue it. She is to otherwise follow-up with PCP for any new or worsening concerns. - HERPES SIMPLEX VIRUS (HSV-1 AND HSV-2) AND VARICELLA ZOSTER VIRUS (VZV), NAAT, LESION SWAB - VALACYCLOVIR 1 GRAM TABLET Mabel Garcia APRN.CNPTrinity Health System East Campus07-31-2025 Radiology Diagnostic study note [facility] Imaging Services [address] [place], [place] [id number] HIP, UNI W/ Pelvis 2-3 Views MR#: [id number] Acct: [id number] Name: LUKASZ DIAZ Rep #: [id number] : 1980 F 44 From: Christopher Milner MD PCP: Dr. Esteban Ware MD Status: REG CLI Study:HIP, UNI W/ Pelvis 2-3 Views Date of Ex am: 06/12/25 Exam# [id number] Ordering Dr: Ghislaine Rodriguez PROCEDURE: HIP, UNI W/ PELVIS 2-3 VIEWS 06/12/2025 REASON FOR EXAM: S/P FALL RIGHT HIP/GROIN PAIN TECHNIQUE: HIP, UNI W/ PELVIS 2-3 VIEWS COMPARISON: None RAD/HIP, UNI W/ Pelvis 2-3 Views IMPRESSION: Prominent degenerative changes are seen of the visualized lower lumbar spine. Minimal to mild sacroiliac joint degenerative changes are noted. Mild degenerative changes are seen of the bilateral hip joints. No evidence of femoral head osteonecrosis. No acute fracture or dislocation is seen. If clinical concern persists, short-term follow-up imaging may be obtained to rule out a currently occult fracture. Reading Location: [place] [address] CC: ТАТЬЯНА Rodriguez; Dr. Esteban Ware MD ~ Chef Manager: Signed [facility]07[facility]30[facility] [address] [place] [id number] OFFICE VISIT Date of Service: 06/11/25 MR#: [id number] Acct: [id number] Patient: LUKASZ DIAZ Rep #: [id number] : 1980 Provider: RICARDO Coleman Age/Sex: 44/F Location: [place] Status: Signed Intake Vital Signs 05/01/25 10:47 Height 1.75 m Weight: 107.955 kg BMI 35.1 BP 128/80 H Blood Pressure Location Lt brachial Position Sitting Respiration 16 Pulse 72 Pulse Source Monitor Temp 96.8 F L Temp Source Temporal Pulse Oximetry (%) 99 Oxygen Delivery Method room air Intake Visit Reasons: Pain Chief Complaint: hip/pelvic pain Allergies hydroxychloroquine (From Plaquenil) Allergy (Intermediate, Verified 05/01/25 10:46) GI issues adhesive tape (paper tape) Allergy (Verified 05/01/25 10:46) Other ketorolac tromethamine (From Toradol) Allergy (Verified 05/01/25 10:46) Shortness of breath naproxen sodium (From Aleve) Allergy (Verified 05/01/25 10:46) Shortness of breath Penicillins Allergy (Verified 05/01/25 10:46) Rash PFSH Medical History Back problem Kidney stone PCOS (polycystic ovarian syndrome) Rheumatoid arthritis Bursitis of left shoulder MVP (mitral valve prolapse) Celiac disease Lupus Carpal tunnel syndrome Diabetes Pulmonary hypertension Hyperlipidemia Surgical History H/O lateral meniscus repair of right knee History of carpal tunnel surgery Hx of reduction mammoplasty History of hysterectomy Hx of appendectomy Hx of cholecystectomy Family History Mother Autoimmune disease lupus Parkinson disease Hypertension Grandfather Colon cancer Father Hypertension Myocardial infarction, Onset Age: 51 Grandmother Breast cancer Sister Crohn's disease Social History (Updated 05/01/25 @ 11:[address] Esteban Ware MD) adopted: No household members: family current occupational status: unemployed pets and animals: Yes (2) pets and animals: cat(s) sexually active: No Smoking Status: Former smoker quit date: 11/13/13 pack-years: 15 Tobacco: How many years used: 20 Electronic Cigarette Use: not used alcohol intake: never substance use type: does not use diet: gluten free caffeine: Yes (1) Type: coffee frequency: does not exercise seatbelt use: always do you feel safe at home: Yes HPI HPI Chief Complaint: hip/pelvic pain Details: LUKASZ DIAZ, is a 44 F who presents to the virtual visit today for hip/pelvic pain. Patient had fallen on her knee and injured the knee and pelvic area. She went to [facility] ER and had a workup including xrays. Per the pt no injury was found and she was advised to take tylenol and motrin for pain. Pt notes no improvement in pain. She is able to walk. Exam Const General: cooperative, healthy appearing, comfortable, no acute distress, well developed and well groomed Nutritional Appearance: average body habitus and well nourished Orientation: alert, awake and oriented x3 Coding Level of Care Code Off vis,est,level 2 Diagnoses Pain R52 Pelvic pain R10.2 Assessment and Plan Assessment and Plan (1) Pain: (2) Pelvic pain: Status: Acute Plan: Pelvic pain following a fall. Pt already had a workup at [facility] with xrays. Tylenol and motrin was recommended prn. Pain has not improved. I have advise thepatient that she will need a more thorough workup involving in person evaluationof her pain, possibly with more additional imaging needed. This is more than I am capable of obtaining in a virtual visit setting. I have offered to refer her to orthopedics which she declines at this time. I have advised she follow up in person with her PCP.Call today for soonest appointment. Time spent on virtual visit 10 minutes. Disclaimer: This visit was performed virtually via live audio and video at the request of the patient. As such the physical exam and testing is limited by whatis able to be seen through the patient'scamera and lighting which may vary in quality, and limited by what the patient is able to perform via clinician instruction. If there is no significant improvement or new complications, the patient should follow up [id number] with a clinician of the appropriate level of care. 06/11/25 1504 A PA> Date _ David SILVA Cosigner Signature: Date (if applicable) CC: ~ [facility]07-30-2025 Progress note Author David Dubon [facility] Note Date/Time June 11, 2025 3:04 pm [facility] [address] [place] [address] OFFICE VISIT Date of Service: 06/11/25 MR#: [id number] Acct: [id number] Patient: LUKASZ DIAZ Rep #: [id number] : 1980 Provider: RICARDO Coleman Age/Sex: 44/F Location: [place] Status: Signed Intake Vital Signs 05/01/25 10:47 Height 1.75 m Weight: 107.955 kg BMI 35.1 BP 128/80 H Blood Pressure Location Lt brachial Position Sitting Respiration 16 Pulse 72 Pulse Source Monitor Temp 96.8 F L Temp Source Temporal Pulse Oximetry (%) 99 Oxygen Delivery Method room air Intake Visit Reasons: Pain Chief Complaint: hip/pelvic pain Allergies hydroxychloroquine (From Plaquenil) Allergy (Intermediate, Verified 05/01/25 10:46) GI issues adhesive tape (paper tape) Allergy (Verified 05/01/25 10:46) Other ketorolac tromethamine (From Toradol) Allergy (Verified 05/01/25 10:46) Shortness of breath naproxen sodium (From Aleve) Allergy (Verified 05/01/25 10:46) Shortness of breath Penicillins Allergy (Verified 05/01/25 10:46) Rash PFSH Medical History Back problem Kidney stone PCOS (polycystic ovarian syndrome) Rheumatoid arthritis Bursitis of left shoulder MVP (mitral valve prolapse) Celiac disease Lupus Carpal tunnel syndrome Diabetes Pulmonary hypertension Hyperlipidemia Surgical History H/O lateral meniscus repair of right knee History of carpal tunnel surgery Hx of reduction mammoplasty History of hysterectomy Hx of appendectomy Hx of cholecystectomy Family History Mother Autoimmune disease lupus Parkinson disease Hypertension Grandfather Colon cancer Father Hypertension Myocardial infarction, Onset Age: 51 Grandmother Breast cancer Sister Crohn's disease Social History (Updated 05/01/25 @ 11:[address] Esteban Ware MD) adopted: No household members: family current occupational status: unemployed pets and animals: Yes (2) pets and animals: cat(s) sexually active: No Smoking Status: Former smoker quit date: 11/13/13 pack-years: 15 Tobacco: How many years used: 20 Electronic Cigarette Use: not used alcohol intake: never substance use type: does not use diet: gluten free caffeine: Yes (1) Type: coffee frequency: does not exercise seatbelt use: always do you feel safe at home: Yes HPI HPI Chief Complaint: hip/pelvic pain Details: LUKASZ DIAZ, is a 44 F who presents to the virtual visit today for hip/pelvic pain. Patient had fallen on her knee and injured the knee and pelvic area. She went to [facility] and had a workup including xrays. Per the pt no injury was found and she was advised to take tylenol and motrin for pain. Pt notes no improvement in pain. She is able to walk. Exam Const General: cooperative, healthy appearing, comfortable, no acute distress, well developed and well groomed Nutritional Appearance: average body habitus and well nourished Orientation: alert, awake and oriented x3 Coding Level of Care Code Off vis,est,level 2 Diagnoses Pain R52 Pelvic pain R10.2 Assessment and Plan Assessment and Plan (1) Pain: (2) Pelvic pain: Status: Acute Plan: Pelvic pain following a fall. Pt already had a workup at [facility] with xrays. Tylenol and motrin was recommended prn. Pain has not improved. I have advise thepatient that she will need a more thorough workup involving in person evaluationof her pain, possibly with more additional imaging needed. This is more than I am capable of obtaining in a virtual visit setting. I have offered to refer her to orthopedics which she declines at this time. I have advised she follow up in person with her PCP. Call today for soonest appointment. Time spent on virtual visit 10 minutes. Disclaimer: This visit was performed virtually via live audio and video at the request of the patient. As such the physical exam and testing is limited by whatis able to be seen through the patient's camera and lighting which may vary in quality, and limited by what the patient is able to perform via clinician instruction. If there is no significant improvement or new complications, the patient should follow up [id number] with a clinician of the appropriate level of care. 06/11/25 1504 <Electronically signed by David SILVA> Date _ David Mei Signature: Date (if applicable) CC: ~ [facility] Work Phone: [phone]) 895-310907-23-2025 Hospital Discharge instructions Patient Education 06/04/2025 15:11:23 Hip Strain Hip Strain You have a strain of the muscles around the hip joint. A muscle strain is a stretching or tearing of muscle fibers. This causes pain, especially when you move that muscle. There may also be some swelling and bruising. Home care Stay off the injured leg as much as possible until you can walk on it without pain. If you have a lot of pain with walking, crutches or a walker may be prescribed. These can be [facility] or [facility] and surgical or orthopedic supply stores. Follow your healthcare provider's advice about when to start putting weight on that leg. Apply an ice pack over the injured area for 15 to 20 minutes every 3 to 6 hours. Do this for the first 24 to 48 hours. You can make an ice pack by filling a plastic bag that seals at the top with icecubes and then wrapping it with a thin towel. Be careful not to injure your skin with the ice treatments. Ice should never be applied directly to skin. Continue the use of ice packs for relief of pain and swelling as needed. After 48 hours, apply heat (warm shower or warm bath) for 15 to 20 minutesseveral times a day, or alternate ice and heat. You may use uien-czy-otmrqin pain medicine to control pain, unless another pain medicine was prescribed. If you have chronic liver or kidney disease or ever had a stomach ulcer or gastrointestinal bleeding, talk with your healthcare provider before using these medicines. If you play sports, you may resume these activities when you are able to hop and run on the injuredleg without pain. Follow-up care Follow up with your healthcare provider, or as advised. If your symptoms don't start to get better after a week, more tests may be needed. If X-rays were taken, you will be told of any new findings that may affect your care. When to seek medical advice Call your healthcare provider right away if any of these occur: Increased swelling or bruising Increased pain Losing the ability to put weight on the injured side [id number] [employer]. [address] [place] [address]. All rights reserved. This information is not intended as a substitute for professional medical care. Always follow yourhealthcare professional's instructions. Follow Up Care 06/04/2025 13:31:26 With:FRANCESCO MANDUJANO MD Address: [address] [place], [place] [address]- When:2-4 days [facility] 07-23-2025 Note Discharge Instructions Thank you for allowing [facility] to assist you with your healthcare needs. The following is importantdischarge information regarding your hospital visit. Diagnosis from Today's Visit Hip strain Strain of hip What to Do Next Instructions from Your Care Team No qualifying data available. Post Acute Orders No qualifying data available. You Need to Schedule the Following Appointments Follow Up with FRANCESCO MANDUJANO MD When:Within 2-4 days [facility] [facility] [place] [id number] Allergies Aleve Bleach Skin irritation, Skin breakdown Natural Vegetable Laxative Tape, Paper Toradol ibuprofen penicillin Medications Please ask your primary doctor or pharmacist before taking any other medication not listed, including over the counter drugs, herbal medications, vitamins and or supplements as they may interact withyour home medications. What How Much When Why Instructions Last Dose New acetaminophen-hydrocodone ([place] 325- 5 mg oral tablet) 1 tab(s) by mouth Every 6 hours as needed for for pain Hip strain Duration: 2 Days May take 1-2 tablets / dose Printed Prescription Unchanged dulaglutide (Trulicity Pen) Subcutaneous Every week Unchanged furosemide (furosemide 40 mg oral tablet) 1 tab(s) by mouth Every other day Unchanged furosemide (Lasix 80 mg oral tablet) 1 tab(s) by mouth Every other day Unchanged hydrOXYzine (hydrOXYzine pamoate 50 mg oral capsule) 1 cap by mouth Four (4) times a day as needed for as needed for anxiety Unchanged isosorbide mononitrate (Imdur use isosorbide mononitrate ) by mouth Unchanged metFORMIN (MetFORMIN (Eqv-Glucophage XR) 500 mg oral tablet, EXTENDED RELEASE) 1 tab(s) by mouth Once a day Unchanged metFORMIN (metFORMIN 500 mg oral tablet, extended release) 2 tab(s) by mouth Two (2) times a day Unchanged nadolol (nadolol 40 mg oral tablet) 1 tab(s) by mouth Two (2) times a day Unchanged OLANZapine (OLANZapine 10 mg oral tablet) 1 tab(s) by mouth Every day Unchanged prazosin (prazosin 1 mg oral capsule) 1 cap by mouth Two (2) times a day Unchanged spironolactone (spironolactone 50 mg oral tablet) 1 tab(s) by mouth Once a day Unchanged topiramate (topiramate 100 mg oral tablet) 1 tab(s) by mouth Two (2) times a day Please take this list to your next doctor s visit. Bring all medications you take, including over the counter medications, herbals and other supplements with you to your doctor s visit. Patients and families are reminded to discard old lists and to update any records with all medication providers or retail pharmacies. Education Materials Hip Strain You have a strain of the muscles around the hip joint. A muscle strain is a stretching or tearing of muscle fibers. This causes pain, especially when you move that muscle. There may also be some swelling and bruising. Home care Stay off the injured leg as much as possible until you can walk on it without pain. If you have a lot of pain with walking, crutches or a walker may be prescribed. These can be rented or purchased [facility] and surgical or orthopedic supply stores. Follow your healthcare provider's advice about when to start putting weight on that leg. Apply an ice pack over the injured area for 15 to 20 minutes every 3 to 6 hours. Do this for the first 24 to 48 hours. You can make an ice pack by filling a plastic bag that seals at the top with icecubes and then wrapping it with a thin towel. Be careful not to injure your skin with the ice treatments. Ice should never be applied directly to skin. Continue the use of ice packs for relief of pain and swelling as needed. After 48 hours, apply heat (warm shower or warm bath) for 15 to 20 minutesseveral times a day, or alternate ice and heat. You may use ybaq-ffb-novcrzx pain medicine to control pain, unless another pain medicine was prescribed. If you have chronic liver or kidney disease or ever had a stomach ulcer or gastrointestinal bleeding, talk with your healthcare provider before using these medicines. If you play sports, you may resume these activities when you are able to hop and run on the injuredleg without pain. Follow-up care Follow up with your healthcare provider, or as advised. If your symptoms don't start to get better after a week, more tests may be needed. If X-rays were taken, you will be told of any new findings that may affect your care. When to seek medical advice Call your healthcare provider right away if any of these occur: Increased swelling or bruising Increased pain Losing the ability to put weight on the injured side [id number] [employer]. [address] [place] [address]. All rights reserved. This information is not intended as a substitute for professional medical care. Always follow yourhealthcare professional's instructions. Additional Information VACCINATE! IT SAVES LIVES! Members of the community who have not yet received the COVID-19 vaccine and would like to receive it can visit one of [facility] vaccine clinics. There are many vaccine clinic locations within the [facility]. For locations and available times, please visit www.gettheshot.coronavirus.[place].gov/. It is important to note that some COVID mobile vaccine clinics are held outdoors and may be canceled in rainy or stormy conditions. To learn more about pediatric vaccinations (ages 5-11), we invite you to visit the [facility] webpage. https://www.[facility].org/pages/4745-Hsuey-Pojelorpwvs-Macroyblhn-Glnpg-Siq stions.htmlTo learn more about the COVID-19 vaccine, we invite you to visit the CDC website for a list of frequently asked questions. https://www.cdc.gov/coronavirus/2019-ncov/vaccines/faq.html [facility] [employer] Patient Portal Access Instructions: Stay connected with your healthcare team and access your personal medical information anytime with the [facility] [employer] Patient Portal. If you would like a full copy of your medical records please contact the [facility] Medical Records Department Monday through Monday between 8a.m. and 4:30p.m. Please follow the directions below to access the portal: 1.Access the email account you provided upon registration to the hospital.2.Look for an invitation email from [facility].3.Open the email and access the invitation link: Accept Invitation to [facility]4.Fill in the required beck to create your account. Sign into [email or web address] with your username and password that you created in the above steps to stay up to date. You can then view a summary of results, a summary of your visits, and the ability to download your summaries to your computer or send the information securely to a physician. Remember that your healthcare information is confidential, so carefully consider who you will allow to register on the [facility] [employer] Patient Portal for access to your information. You can also access the [facility] Patient Portal on the [employer] sebastián. Simply click on Health Records under Affirm and then click on the [facility] logo. HOW TO SAFELY DISPOSE OF PRESCRIPTION MEDICATIONS Please use one of the following methods to safely dispose of your unused medications. 1.Use a drug disposal kit: the drug disposal pouch allows you to safely discard your old and unuseddrugs. Ask your nurse to give you one when you are discharged.2.Visit a local take-back location: Many local pharmacies and police departments have programs that collect old and unwanted prescriptiondrugs. Call your local pharmacy or go to http://Exinda.CICCWORLD/0N1Ey3s to find one close to you.3.Make use of household items: Use cat litter or old coffee grounds to dispose medications if other options arenot available. Mix your drugs with these household products, seal them in an airtight container andthrow it into the garbage. Call [facility]: [phone] to be sure your drugs can be disposed of in this way. Some medicines may require a different approach.4.Never flush your medications down the toilet. IF YOU HAVE BEEN PRESCRIBED AN OPIOIDS FOR PAIN If you have been prescribed an opioid (such as hydrocodone, oxycodone or morphine), it is critical to understand the possible side effects and risks of opioid pain medications. Even when taken as directed, opioids can have several side effects including: Tolerance, meaning you might need to take more of a medication for the same pain relief. Nausea, vomiting and/or constipation. Sleepiness, dizziness, dry mouth, confusion, depression or itching. Physical dependence, meaning you have withdrawal symptoms when a medication is stopped ? this can develop within a few days. KNOW YOUR RESPONSIBILITIES It is important to know exactly how much and how often to take the opioid pain medications you are prescribed. Never take opioids in higher amounts or more often than prescribed. Do not combine opioids with alcohol or other drugs that cause drowsiness, such as benzodiazepines, also known as benzos,including diazepam and alprazolam, muscle relaxants or sleep aids. Never sell or share prescriptionopioids. This is illegal. Store opioids in a secure place and out of reach of others (including children, family, friends and visitors). The last page(s) of this document has been signed and retained as a CHART COPY Signatures Patient Education Materials Hip Strain Medication Leaflets My discharge plan and instructions have been reviewed and explained to me and I,LUKASZ DIAZ understand my current condition and have read and understand these discharge instructions. I have received a written copy of the plan/instructions. If I have questions, I am aware that I should contact my doctor. Patient/Child Care Center Administrator Signature: Date/Time: Relationship to Patient: Witness Name/Signature: Date/Time: [facility]07-23-2025 Note* Exam Date Time Procedure Performing Provider Status 06/04/25 2:04 PM XR Knee 1 or 2 Views Right SE SANDI OHARA MD; Auth (Verified) [id number] ORIGINAL EXAMINATION: TWO XRAY VIEWS OF THE RIGHT KNEE06/04/2025 2:09 pm COMPARISON: None HISTORY: ORDERING SYSTEM PROVIDED HISTORY: Reason for Exam: pain FINDINGS: No fracture or dislocation is seen. There is tricompartmental degenerative changes, most pronounced at the medial compartment with subchondral sclerosis marginal spurring and slight meniscal calcifications. There are no suspicious osseous lesions. No significant joint effusion is seen. IMPRESSION: No acute fracture or subluxation. I have personally reviewed the images of this examination and agree with the resident's findings and interpretation. Interpreted by: Leslie Ohara Preliminary Report By: Jimi Delgado MD Electronically signed By Leslie Ohara Dictated Date: 06/04/2025 2:14:23 PM Prelim Date: 06/04/2025 2:26:05 PM Sign Date: 06/04/2025 2:26:05 PM Ordering Provider: [place] [id number] Note* Exam Date Time Procedure Performing Provider Status 06/04/25 2:03 PM XR Hip 2-3 Views Right LESLIE OHARA MD; Auth (Verified) [id number] ORIGINAL EXAMINATION: 2 XRAY VIEWS OF THE RIGHT HIP06/04/2025 2:46 pm COMPARISON: None HISTORY: ORDERING SYSTEM PROVIDED HISTORY: Reason for Exam: pain, emergency patient FINDINGS: There is no fracture or dislocation. The visualized portion of the pelvic ring is intact. Multifocal enthesopathy and subchondral sclerosis in the right hip. IMPRESSION: No acute fracture or subluxation. I have personally reviewed the images of this examination and agree with the resident's findings and interpretation. Interpreted by: Leslie Ohara Preliminary Report By: Jimi Delgado MD Electronically signed By Leslie Ohara Dictated Date: 06/04/2025 2:47:01 PM Prelim Date: 06/04/2025 2:55:16 PM Sign Date: 06/04/2025 2:55:16 PM Ordering Provider: [place] [id number] NoteHNO ID: [id number] Author: FRANCESCO PORRAS APRN.STEFANIE Service: ? Author Type: Nurse Practitioner Type: Progress Notes Filed: 06/04/2025 12:40 Note Text: URGENT CARE LILIANA Diaz is a 44 year old female. Patient presents with: Pelvic Pain: right side and fell this am while walking dog HPI 44-year-old female presents urgent care chief complaint right hip pain. Patient states this morning she was walking her dog when she fell striking her right knee on the ground. Is having a hard time bearing weight due to her right pelvic pain. Rates pain oh out of 10. No other concerns. Review of Systems Constitutional: Negative for activity change, diaphoresis, fatigue and fever. Musculoskeletal: Positive for gait problem. Negative for arthralgias, back pain, joint swelling, myalgias, neck pain and neck stiffness. Skin: Negative for pallor, rash and wound. Neurological: Negative for dizziness, seizures, syncope, weakness, light-headedness and numbness. Psychiatric/Behavioral: Negative for confusion. Objective BP 110/72 Pulse 96 Temp 36.4 ?C (97.5 ?F) Resp 18 Wt 108.2 kg (238 lb 8.6 oz) LMP 09/02/2015 SpO2 97% BMI 35.23 kg/m? Physical Exam Constitutional: Appearance: Normal appearance. She is normal weight. HENT: Head: Normocephalic. Eyes: Conjunctiva/sclera: Conjunctivae normal. Cardiovascular: Rate and Rhythm: Normal rate. Pulmonary: Effort: Pulmonary effort is normal. Musculoskeletal: Cervical back: Normal range of motion. Comments: Significant tenderness on palpation to right hip. Skin: Findings: No rash. Neurological: General: No focal deficit present. Mental Status: She is alert and oriented to person, place, and time. Mental status is at baseline. {ASSESSMENT/PLAN: 1. Right hip pain - ICD9: 719.45, ICD10: M25.551 Diagnosis right hip pain. We discussed x-ray in the office today. We discussed pain management options. Patient states pain is severe and would like to be seen in the ED. Will be seen at [facility] Francesco Porras APRN.MAT MAN [facility] History of Present illness Narrative* Francesco Porras APRN.STEFANIE - 06/04/2025 12:39 PM EDT URGENT CARE [facility] Lukasz Diaz is a 44 year old female. Patient presents with: Pelvic Pain: right side and fell this am while walking dog HPI 44-year-old female presents urgent care chief complaint right hip pain. Patient states this morningshe was walking her dog when she fell striking her right knee on the ground. Is having a hard time bearing weight due to her right pelvic pain. Rates pain oh out of 10. No other concerns. Review of Systems Constitutional: Negative for activity change, diaphoresis, fatigue and fever. Musculoskeletal: Positive for gait problem. Negative for arthralgias, back pain, joint swelling, myalgias, neck pain and neck stiffness. Skin: Negative for pallor, rash and wound. Neurological: Negative for dizziness, seizures, syncope, weakness, light- headedness and numbness. Psychiatric/Behavioral: Negative for confusion. Objective BP 110/72 Pulse 96 Temp 36.4 C (97.5 F) Resp 18 Wt 108.2 kg (238 lb 8.6 oz) LMP 09/02/2015 SpO2 97% BMI 35.23 kg/m Physical Exam Constitutional: Appearance: Normal appearance. She is normal weight. HENT: Head: Normocephalic. Eyes: Conjunctiva/sclera: Conjunctivae normal. Cardiovascular: Rate and Rhythm: Normal rate. Pulmonary: Effort: Pulmonary effort is normal. Musculoskeletal: Cervical back: Normal range of motion. Comments: Significant tenderness on palpation to right hip. Skin: Findings: No rash. Neurological: General: No focal deficit present. Mental Status: She is alert and oriented to person, place, and time. Mental status is at baseline. {ASSESSMENT/PLAN: 1. Right hip pain - ICD9: 719.45, ICD10: M25.551 Diagnosis right hip pain. We discussed x-ray in the office today. We discussed pain management options. Patient states pain is severe and would like to be seen in the ED. Will be seen at [facility] Francesco Porras APRN.CNP [facility] Procedures [facility] Evaluation note* Diagnosis Onset Date Resolution Status Admit Date Essential hypertension acute 2024 10:42am Diabetes chronic May 01 10:42am Immunization due noneactive April 10:42am Multiple joint pain noneactive May 01, 2025 10:42am Autoimmune disease noneactive April 132024 10:42am Mixed hyperlipidemia noneactive May 01, 2025 10:42am Anxiety and depression noneactive 2024 10:42am Screening for breast cancer noneacti ve May 01, 2025 10:42am Mitral valve prolapse noneactive Apr 10:42am Celiac disease noneactive May 01, 2025 10:42am Pelvic pain acute June 11 2:51pm Pain noneactive June 11 2:51pm [facility] Work Phone: [phone]) 487-452506-19-2025 Evaluation note* Diagnosis Onset Date Resolution Status Admit Date Essential hypertension acute 2024 10:42am Diabetes chronic May 01 10:42am Immunization due noneactive April 10:42am Multiple joint pain noneactive May 01, 2025 10:42am Autoimmune disease noneactive April 132024 10:42am Mixed hyperlipidemia noneactive May 01, 2025 10:42am Anxiety and depression noneactive 2024 10:42am Screening for breast cancer noneacti ve May 01, 2025 10:42am Mitral valve prolapse noneactive Apr 10:42am Celiac disease noneactive May 01, 2025 10:42am Pelvic pain acute June 11 2:51pm Pain noneactive June 11 2:51pm Acute right hip pain acute June 12, 2025 3:12pm Status post fall acute May 3:12pm [facility] Work Phone: 1(649) 613-624206-19-2025 Evaluation note* Diagnosis Onset Date Resolution Status Admit Date Essential hypertension acute 2024 10:42am Diabetes chronic May 01 10:42am Immunization due noneactive April 10:42am Multiple joint pain noneactive May 01, 2025 10:42am Autoimmune disease noneactive April 132024 10:42am Mixed hyperlipidemia noneactive May 01, 2025 10:42am Anxiety and depression noneactive 2024 10:42am Screening for breast cancer noneacti ve May 01, 2025 10:42am Mitral valve prolapse noneactive Apr 10:42am Celiac disease noneactive May 01, 2025 10:42am Pelvic pain acute June 11 2:51pm Pain noneactive June 11 2:51pm Acute right hip pain acute June 12, 2025 3:12pm Status post fall acute May 3:12pm Pelvic pain acute June 26, 2025 2:31pm [facility] Work Phone: [phone]) 363-971706-19-2025 Evaluation note* Diagnosis Onset Date Resolution Status Admit Date Essential hypertension acute Ju 2024 10:42am Diabetes chronic May 01 10:42am Immunization due noneactive April 10:42am Multiple joint pain noneactive May 01, 2025 10:42am Autoimmune disease noneactive April 132024 10:42am Mixed hyperlipidemia noneactive May 01, 2025 10:42am Anxiety and depression noneactive Ju ne 2024 10:42am Screening for breast cancer noneacti ve May 01, 2025 10:42am Mitral valve prolapse noneactive Jose Martin e 2024 10:42am Celiac disease noneactive May 01, 2025 10:42am Pelvic pain acute June 11 2:51pm Pain noneactive June 11 2:51pm Acute right hip pain acute June 12, 2025 3:12pm Status post fall resolved May 3:12pm Pelvic pain acute June 26, 2025 2:31pm Essential hypertension acute Se ptember 2024 10:22am Pelvic pain acute July 10:22am Diabetes chronic July 10:22am Immunization due noneactive Septembe r 2024 10:22am Multiple joint pain noneactive Septe mber 2024 10:22am Umbilical abnormality noneactive Sep tember 2024 10:22am Autoimmune disease noneactive Septem sharon 2024 10:22am Mixed hyperlipidemia noneactive Sept ember 2024 10:22am Anxiety and depression noneactive Se ptember 2024 10:22am Mitral valve prolapse noneactive Sep tember 2024 10:22am Celiac disease noneactive July 31, 2025 10:22am [facility] Work Phone: [phone] Telephone encounter Note* Telephone Encounter - Sharon Blackman - 04/14/2025 11:52 AM EDT Medication Access Team coordinated the following [facility] Clinics: Rheumatology/Nephrology Prior Authorization Per the patient's insurance provider, [employer], the prior authorization for Humira 40 mg/0.4 mL PSKT (on-label) was approved. (2 syringes per 28 days) [facility] can fill. The pharmacy will contact the patient to arrange delivery. 3 month approval. Non-Oncology Specialty Prescriptions: 1, 0-2 min Sharon Blackman CPhT. Prior Animal Tech [facility] Miscellaneous Notes* Telephone Encounter - Sharon Blackman - 04/14/2025 11:52 AM EDT Medication Access Team coordinated the following [facility] Clinics: Rheumatology/Nephrology Prior Authorization Per the patient's insurance provider, [employer], the prior authorization for Humira 40 mg/0.4 mL PSKT (on-label) was approved. (2 syringes per 28 days) [facility] can fill. The pharmacy will contact the patient to arrange delivery. 3 month approval. Non-Oncology Specialty Prescriptions: 1, 0-2 min Sharon Blackman CPhT. Prior Animal Tech documented [facility]OS[facility] History of Present illness Narrative* FANTA Castillo - 04/09/2025 10:30 AM EDT Images from the original note were not included. REASON FOR VISIT: Joint pain HISTORY OF PRESENT ILLNESS Ms. Lukasz Diaz, is seen [facility] followup on arthritis In 2019,- she was on methotrexate and HCQ. Methotrexate was stopped later as she had transaminitis Recent diagnosis of celiac disease Currently having a major flare up of joint symptoms- pain and stiffness in the hands, knees, low back Unable to work (she has been working 4 days/month) Severe fatigue Started on prednisone and meloxicam by the PCP, which helped Unable to be on prednisone halfway due to diabetes Started on SSZ 1500 mg daily from 12/07- stopped taking it as it wasn't helping Hand xrays from 12/07 was normal Recent RUQ scan showed increased echogenicity of liver Current treatment: none Previous failed treatment: Methotrexate HCQ SSZ Initial history: She has family history of RA in her mother Patient history malar rash, joint pain especially over the MCPs, both ankle joints, knee joints andshoulders and sometimes over the wrist. Significant morning stiffness. Swelling over the MCP jointsand ankles. Previously she had negative LUCI test according to her. Workup done here last visit was negative for any/Anca/RF/CCP. Sed rate and CRP were mildly elevated. Hand x-rays were normal except for possible enthesitis around the PIP joints She has Raynaud symptoms, no history of any fingertip ulcers. Mild dryness of the mouth No history of blood clots or miscarriages. Patient has history of chronic pulmonary hypertension diagnosed 11 years ago. Most recent evaluation here including right heart catheterization showed no evidence for pulmonary artery hypertension. Has been having joint pain, malar rash, raynauds -- She was started on hydroxychloroquine from 08/01 and methotrexate injection from 10/01 with improvement of symtoms. Results for LUKASZ DIAZ ( ) as of 07/25/2019 11:35 Ref. Range 07/12/2019 15:08 07/12/2019 15:09 RHEUMATOID FACTOR Latest Ref Range: <=14 IU/mL <10 ANCA (ANTI NEUTROPHIL CYTOPLASMIC ANTIBODY) Latest Ref Range: Negative Negative ANTI-MYELOPEROXIDASE AB Latest Ref Range: Negative Negative ANTI-PROTEINASE 3 AB Latest Ref Range: Negative Negative CYCLIC CITRULLINATE PEPTIDE AB Latest Ref Range: <5.0 U/mL <0.5 LUCI SCREEN, MULTIPLEX Latest Ref Range: Negative Negative LUCI, IFA Latest Ref Range: Negative Negative C-REACTIVE PROTEIN Latest Ref Range: <10.00 mg/L 13.90 (H) Results for LUKASZ DIAZ ( ) as of 07/25/2019 11:35 Ref. Range 07/12/2019 15:09 SEDIMENTATION RATE AUTOMATED Latest Ref Range: <20 mm/hr 30 (H) REVIEW OF SYSTEMS A complete review of systems was obtained and positive only for the above noted in the HPI otherwise negative. ALLERGY she is allergic to hydroxychloroquine sulfate, penicillins, and toradol [ketorolac tromethamine]. MEDICATIONS Current Outpatient Medications Medication Sig Adalimumab 40 MG/0.4ML Prefilled Syringe Kit citrate free Inject 40 mg under the skin every 14 days. B-D INSULIN SYRINGE 1CC/25GX1 25G X 1 1 ML Misc USE DIRECTED FOR WEEKLY METHOTREXATE INJECTIONS Desvenlafaxine Succinate 100 MG Tab SR 24 HR Take 1 tablet by mouth daily. gabapentin 600 MG tablet Take 1 tablet by mouth 2 times daily. Jardiance 10 MG tablet Take 1 tablet by mouth Daily (with dinner). metformin 1000 MG Tab tablet Take 1 tablet by mouth 2 times daily with meals. Mirtazapine 30 MG tablet Take 1 tablet by mouth at bedtime. nadolol (CORGARD) 40 MG Tab tablet Take 1 tablet by mouth 2 times daily. Weston & Syringes (1CC TB SYRINGE) Misc Use for weekly Methotrexate injections nitroGLYCERIN 2 % ointment Apply a thin layer over the affected finger, twice daily Ondansetron 4 MG tablet TAKE 1 TABLET BY MOUTH DAILY NEEDED FOR NAUSEA AND VOMITING Prazosin 1 MG capsule take 3 capsules by mouth every night at bedtime sulfaSALAzine 500 MG tablet 2 tabs in the morning and 3 tabs at bedtime Trulicity 1.5 MG/0.5ML Solution Auto-injector injection INJECT 1.5 mg (0.5 mL) subcutaneously everyweek PAST MEDICAL HISTORY Past Medical History: Diagnosis Date Anxiety disorder Dyslipidemia Fatty liver GERD (gastroesophageal reflux disease) Hypertension Inflammatory arthritis 07/25/2019 Type 2 diabetes mellitus PAST SURGICAL HISTORY She has a past surgical history that includes appendectomy (1994); release carpal tunnel (2003); hysterectomy; cholecystectomy (2003); arthroscopy knee w/ meniscus repair (2013 and 2016); and reduction revision breast (2017). FAMILY HISTORY She family history includes Breast Cancer in her maternal grandmother; Colorectal Cancer in her maternal grandfather; Diabetes in her father; Heart Disease - Other in her maternal grandfather; Myocardial Infarction in her father; Neurologic Disease in her mother; Prostate Cancer in her maternal uncle; Sudden Cardiac in her father. SOCIAL HISTORY She reports that she quit smoking about 12 years ago. Her smoking use included cigarettes. She has never used smokeless tobacco. She reports that she does not drink alcohol and does not use drugs. PHYSICAL EXAM Blood pressure 110/78, pulse 75, temperature 97.3 F (36.3 C), temperature source Temporal, resp. rate 18, height 1.753 m (5' 9), weight 109.3 kg (241 lb), SpO2 99%. GENERAL: She is in no apparent distress. Skin (Limited): no rash Extremities: No edema. Musculoskeletal: swelling over 2nd and 3rd MCP joints today on the R hand Able to make fist bilaterally with some difficulty IMPRESSION / PLAN: 1. Polyarthritis with negative rheumatoid factor 2. Inflammatory arthritis 3. Raynaud's disease without gangrene 4. Long-term use of high-risk medication Ms. Diaz has polyarthralgias, swelling over ankle and MCP joints, significant morning stiffness mild Raynaud's. She has pulmonary hypertension diagnosed 11 years ago, also recent right heart catheterization was normal.. Her serological workup was negative . Mild elevation of inflammatory markers.Given that she has evidence for inflammation on exam along with elevated inflammatory markers, it is possible that she may have seronegative rheumatoid arthritis. We discussed treatment. She has improvement of symptoms with hydroxychloroquine and methotrexate, but had allergic rrash to HCQ Won't be able to use methotrexate as she has probable SANTOS Seronegative RA:normal hand xrays 12/07 - add Humira every 2 weeks as a biologic DMARD. Previously failed methotrexate, HCQ and SSZ 2. NAFLD: Weight loss is the best treatment. Comprehensive lifestyle modification, which includes changes in diet and increase in exercise, has the greatest, longest lasting weight loss benefit. exercise to keep weight off. Exercise Start small, with a 5-10 minute brisk walk for example, and gradually build up. Aim for 30 minutes of moderate intensity exercise on most days of the week (150 minutes/ week). Avoid Alcohol Minimize alcohol as much as possible. If you do drink, do not drink more than 1-2 drinks a day. Treat high blood sugar and high cholesterol Ask your primary provider if you have high blood sugar or high cholesterol. Certain medications can help lower blood sugar levels and cholesterol. 3. Raynauds: Educated regarding both the potential causes of a Raynaud attack and the general measures to help prevent and terminate an episode. General measures that help to prevent or diminish the severity of attacks of RP include avoiding cold exposure, maintaining warmth of the whole body, and avoiding sympathomimetic medications and emotional stress 4.# High Risk Medications: Risks, side effects, and benefits of medications that are used to treat the issues listed above were discussed in detail. All questions about the medications were answered.The patient was encouraged to further educate themselves by reading the medication package insert, and if available to read information provided by the [employer] Reviewed recent labs , stable -Check labs before next visit R/o TB and viral hepatitis today I will be seeing Ms. Diaz back in the office in 2 months to review her progress and discuss further therapeutic options, especially if we need to increase the dose of Norvasc. Thank you for allowing us to participate in her care. Should you have any questions, please do not hesitate to contact us. Coleen Hu MD fast food restaurant manager Department of Rheumatology [place], [place] documented in this encounterOSU [facility] NoteHNO ID: [id number] Author: ?, ?, ? Service: ? Author Type: ? Type: Progress Notes Filed: 03/31/2025 11:29 Note Text: Diabetes Outreach Lukasz Diaz has been identified for clinical review due to her diagnosis of Diabetes. They have gaps in care of: Lack of PCP team appointment every 6 months Hemoglobin A1C (%) Date Value 08/30/2023 11.9 11/22/2022 11.7 11/04/2019 8.9 07/22/2019 11.0 Based on this review the following interventions will be enacted: Schedule appointment with PCP PSS Team - Please contact the patient with the following scripting Francesco Mandujano MD has identified that you are in need of ongoing care of your diabetes. We would like to assist you in making an appointment (as above). Our goal is to help you manage your condition and keep you healthy, and regular visits to address this is very important. If you have a provider outside of [facility] we encourage you to follow up with them regularly. If patient is seeing an outside provider, please document in Care Teams.[facility] 03-31-[facility] History of Present illness Narrative* Selma Corado - 03/31/2025 11:29 AM EDT Diabetes Outreach Lukasz Diaz has been identified for clinical review due to her diagnosis of Diabetes. They have gaps in care of: Lack of PCP team appointment every 6 months Hemoglobin A1C (%) Date Value 08/30/2023 11.9 11/22/2022 11.7 11/04/2019 8.9 07/22/2019 11.0 Based on this review the following interventions will be enacted: Schedule appointment with PCP PSS Team - Please contact the patient with the following scripting Francesco Mandujano MD has identified that you are in need of ongoing care of your diabetes. We would like to assist you in making anappointment (as above). Our goal is to help you manage your condition and keep you healthy, and regular visits to address this is very important. If you have a provider outside of [facility] weencourage you to follow up with them regularly. If patient is seeing an outside provider, please document in Care Teams. documented in this encounterSy[facility] NotePatient Outreach (4CQ) LUKASZ DIAZ ([id number]) 1980 F Date Time Provider Department 03/31/25 FRANCESCO MANDUJANO 4CQ During your visit today, we recorded the following information about you: Selma Corado 03/31/2025 11:29 AM Signed Diabetes Outreach Lukasz Diaz has been identified for clinical review due to her diagnosis of Diabetes. They have gaps in care of: Lack of PCP team appointment every 6 months Hemoglobin A1C (%) Date Value 08/30/2023 11.9 11/22/2022 11.7 11/04/2019 8.9 07/22/2019 11.0 Based on this review the following interventions will be enacted: Schedule appointment with PCP PSS Team - Please contact the patient with the following scripting Francesco Mandujano MD has identified that you are in need of ongoing care of your diabetes. We would like to assist you in making an appointment (as above). Our goal is to help you manage your condition and keep you healthy, and regular visits to address this is very important. If you have a provider outside of [facility] we encourage you to follow up with them regularly. If patient is seeing an outside provider, please document in Care Teams. Allergies As of Date: 03/31/2025 Noted Allergy Reaction LAMICTAL (LAMOTRIGINE) 03/19/2021 14 - Other: See Comments Comments: Made her suicidal TORADOL (KETOROLAC) 03/06/2014 12 - Shortness of Breath Comments: Elevates BP; dyspnea ZOLOFT (SERTRALINE HCL) 01/02/2016 14 - Other: See Comments Comments: suicidal. ADHESIVE 02/12/2019 14 - Other: See Comments Comments: Per pt not allergic to adhesive tape - its paper tape that she's allergic to IBUPROFEN 01/10/2024 16 - Unknown NAPROXEN 02/12/2019 14 - Other: See Comments PSYLLIUM 01/10/2024 16 - Unknown ACTOS (PIOGLITAZONE HCL) 11/15/2016 14 - Other: See Comments Comments: Sweats and chills CELEXA (CITALOPRAM) 08/22/2018 5 - Intolerance Comments: Electrical shock feelings EGGS (EGG) 08/28/2013 8 - GI Upset FENOFIBRATE 07/27/2017 8 - GI Upset LIPITOR (ATORVASTATIN) 11/09/2015 17 - Myalgia PLAQUENIL (HYDROXYCHLOROQUINE) 02/12/2020 14 - Other: See Comments Comments: GI upset and pain PRAVACHOL (PRAVASTATIN SODIUM) 07/27/2017 8 - GI Upset ZOCOR (SIMVASTATIN) 02/12/2020 17 - Myalgia Date Reviewed: 09/30/2024 Reviewed by: Bertha Lovelace MA - Fully Assessed Prescriptions as of 03/31/2025 - sulfaSALAzine (AZULFIDINE) 500 mg tablet Take 5 tablets by mouth once daily. Per Rheumatology - ondansetron (ZOFRAN) 4 mg tablet TAKE 1 TABLET BY MOUTH DAILY NEEDED FOR NAUSEA AND VOMITING - dicyclomine (BENTYL) 20 mg tablet Take one tablet by mouth three times daily as needed for abdominal cramping - JARDIANCE 10 mg tablet Take 1 tablet by mouth every afternoon. - TRUE METRIX GLUCOSE METER as directed. - promethazine (PHENERGAN) 25 mg tablet Take 1 tablet by mouth every 4 hours as needed for nausea/vomiting. - nadolol (CORGARD) 40 mg tablet Take 1 tablet by mouth two times a day. - dulaglutide (TRULICITY) 1.5 mg/0.5 mL pen injector Inject 1.5 mg subcutaneously one time a week. Inject once per week. Discard Pen After - omeprazole (PRILOSEC) 40 mg capsule Take 1 capsule by mouth once daily. - metFORMIN ER (GLUCOPHAGE XR) 500 mg 24 hr tablet Take 2 tablets by mouth two times a day. - desvenlafaxine 100 mg Tb24 Take 1 Tablet By Oral Route 1 time per day - mirtazapine (REMERON) 15 mg tablet Take 1 Tablet By Oral Route at bedtime. - Insulin Weston, Disposable, (PEN NEEDLE) 29 gauge x 1/2 Use one needle per dose. one per day - blood sugar diagnostic (BLOOD GLUCOSE TEST) test strip Test blood sugar(s) 2 times daily. Dx: Type 2 DM - Uncontrolled E11.65 Insulin: yes - Lancets lancets Test blood sugar(s) 1 times daily. Dx: Type 2 DM - Uncontrolled E11.65 Insulin: No - furosemide (LASIX) 20 mg tablet Take one tab by mouth as need when you have a 3 lb weight gain or more longer then two days. - gabapentin (NEURONTIN) 600 mg tablet Take 1 tablet by mouth twice daily for 180 days. Per [facility] - prazosin (MINIPRESS) 1 mg cap Take 3 caps AT BEDTIME for Anxiety Meds Comments as of 02/12/2019: Doesn't take Amaryl Birgit Sanchez RN 9:50 PM Problem List As Of Date 03/31/2025 Noted Resolved Abdominal pain, right lower quadrant [R10.31] 10/05/2010 01/18/2013 Abnormal glandular Papanicolaou smear of cervix*10/05/2010 PCOS (polycystic ovarian syndrome) [E28.2] 01/18/2013 DUB (dysfunctional uterine bleeding) [N93.8] 01/18/2013 MVP (mitral valve prolapse) [I34.1] Pulmonary HTN (HCC) [I27.20] Encounter for routine gynecological examination* Dyslipidemia [E78.5] 06/05/2014 Morbid obesity (HCC) [E66.01] 03/03/2015 07/13/2017 PTSD (post-traumatic stress disorder) [F43.10] 01/02/2016 Generalized anxiety disorder [F41.1] 01/02/2016 Essential hypertension with goal blood pressure*04/26/20 (more content not included)...[facility]03-[facility]25 NoteHNO ID: [id number] Author: RAMEZ FERNANDEZ PA-C Service: ? Author Type: [employer] Sales Consultant Type: Progress Notes Filed: 02/04/2025 18:59 Note Text: Telemedicine Visit - Distance Health Virtual Visit Note Patient seen on [employer] Video Visit platform. Location of patient: [place] I have communicated my name and active licensure. The patient's identity and physical location were verified at the time of this visit. Either the patient or their legal employee representative has been informed of the risks and benefits of -- and alternatives to -- treatment through a remote evaluation and consents to proceed with the evaluation remotely. History of Present Illness Subjective The patient is a 44-year-old female with a history of GI issues, presenting for severe nausea and vomiting. Nausea and Vomiting: - Severe nausea and vomiting today. - Taking Zofran 4 mg tablets, twice today, with the last dose about an hour ago; reports no relief. - Able to tolerate water; consumed grits with butter and cheese earlier today. - Denies current abdominal pain. - Reports difficulty getting timely appointments with GI specialist. Gastrointestinal: (+) nausea, (+) vomiting, (-) abdominal pain Objective Last menstrual period 09/02/2015. General: No acute distress. 1. Lactose intolerance (E73.9) - Advised to avoid dairy products to prevent exacerbation of symptoms. 2. Nausea and vomiting, unspecified vomiting type (R11.2) - Persistent nausea and vomiting despite administration of Zofran 4 mg tablet, taken twice today with the last dose approximately one hour ago. - Able to tolerate water but experiencing difficulty with food intake. - Recommended emergency room evaluation if unable to maintain adequate hydration, if abdominal pain develops, or if hematochezia occurs. - Advised to contact gastroenterology team for further management and to address any delays in follow-up appointments. [id number] This visit should be coded by complexity; MDM was of low complexity. OVERALL COMPLEXITY Problem Complexity: Low Data Level: Straightforward Risk Level: Low Overall MDM complexity (2/3 must be met or exceeded): Low PROBLEMS SECTION: 1. Lactose intolerance - Self-limited or minor problem 2. Nausea and vomiting, unspecified vomiting type - Acute, uncomplicated illness or injury One acute, uncomplicated illness or injury (Low complexity) Problem complexity level: Low DATA SECTION: - Review of prior external note(s) from each unique source: - Ordering of each unique test: - Assessment requiring an independent historian(s): - Independent interpretation of a test performed by another physician/other qualified health rn care transition: - Discussion of management or test interpretation with external physician/other qualified health rn care transition/appropriate source: Data complexity level: Minimal; minimal or none RISKS SECTION: OTC Medication Use (Zofran) - Low complexity Lifestyle modification (avoid dairy) - Minimal complexity Risks complexity level (highest from above): Low Attestation The patient consented to the use of [employer] software for draft documentation of the visit consistent with [facility]?s Notice of Privacy Practices. PAST MEDICAL HISTORY Diagnosis Date Abnormal glandular Papanicolaou smear of cervix 10/05/2010 Controlled type 2 diabetes mellitus without complication, without long-term current use of insulin (HCC) 05/03/2016 Current use of proton pump inhibitor 11/15/2016 Mg checked 01/2017 DUB (dysfunctional uterine bleeding) 01/18/2013 Dyslipidemia 06/05/2014 Elevated LFTs 06/10/2015 Erythrocytosis 03/27/2022 Seen Hematology 09/2018 with neg w/u Essential hypertension with goal blood pressure less than 130/85 04/26/2016 Fatty liver 06/13/2014 Gastroesophageal reflux disease without esophagitis 06/10/2015 Resolved. Generalized anxiety disorder 01/02/2016 Hypomagnesemia 04/02/2019 Large breasts 08/23/2017 Had breast reduction 02/16/2018 Mild intermittent asthma without complication 11/15/2016 Moderate episode of recurrent major depressive disorder (HCC) 11/15/2016 Morbid obesity with body mass index (BMI) of 45.0 to 49.9 in adult (HCC) 07/13/2017 Muscle spasm 08/23/2017 MVP (mitral valve prolapse) Neck pain on left side 08/23/2017 Obesity (BMI 30-39.9) 07/13/2017 PCOS (polycystic ovarian syndrome) 01/18/2013 PTSD (post-traumatic stress disorder) 01/02/2016 Pulmonary HTN ([facility]) Seeing Dr. Campbell Routine gynecological examination Sees Dr. Estrada Seronegative rheumatoid arthritis ([facility]) 07/26/2019 Seeing [facility] Suicidal behavior with attempted self-injury ([facility]) 08/19/2020 08/17/2020: overdose on muscle relaxors, Sent to inpatient unit [facility] Suicidal behavior with attempted self-injury ([facility]) 08/19/2020 08/17/2020: overdose on muscle relaxors, Sent to inpatient unit [facility] Type 2 diabetes mellitus with hyperglycemia, w (more content not included)... [facility]03-25-2025 History of Present illness Narrative* Ramez Fernandez PA-C - 02/04/2025 6:48 PM EDT Telemedicine Visit - Distance Health Virtual Visit Note Patient seen on [employer] Video Visit platform. Location of patient: [place] I have communicated my name and active licensure. The patient's identity and physical location wereverified at the time of this visit. Either the patient or their legal employee representative has been informed of the risks and benefits of -- and alternatives to -- treatment through a remote evaluation andconsents to proceed with the evaluation remotely. History of Present Illness Subjective The patient is a 44-year-old female with a history of GI issues, presenting for severe nausea and vomiting. Nausea and Vomiting: - Severe nausea and vomiting today. - Taking Zofran 4 mg tablets, twice today, with the last dose about an hour ago; reports no relief. - Able to tolerate water; consumed grits with butter and cheese earlier today. - Denies current abdominal pain. - Reports difficulty getting timely appointments with GI specialist. Gastrointestinal: (+) nausea, (+) vomiting, (-) abdominal pain Objective Last menstrual period 09/02/2015. General: No acute distress. 1. Lactose intolerance (E73.9) - Advised to avoid dairy products to prevent exacerbation of symptoms. 2. Nausea and vomiting, unspecified vomiting type (R11.2) - Persistent nausea and vomiting despite administration of Zofran 4 mg tablet, taken twice today with the last dose approximately one hour ago. - Able to tolerate water but experiencing difficulty with food intake. - Recommended emergency room evaluation if unable to maintain adequate hydration, if abdominal paindevelops, or if hematochezia occurs. - Advised to contact gastroenterology team for further management and to address any delays in follow-up appointments. [id number] This visit should be coded by complexity; MDM was of low complexity. OVERALL COMPLEXITY Problem Complexity: Low Data Level: Straightforward Risk Level: Low Overall MDM complexity (2/3 must be met or exceeded): Low PROBLEMS SECTION: 1. Lactose intolerance - Self-limited or minor problem 2. Nausea and vomiting, unspecified vomiting type - Acute, uncomplicated illness or injury One acute, uncomplicated illness or injury (Low complexity) Problem complexity level: Low DATA SECTION: - Review of prior external note(s) from each unique source: - Ordering of each unique test: - Assessment requiring an independent historian(s): - Independent interpretation of a test performed by another physician/other qualified health rn care transition: - Discussion of management or test interpretation with external physician/other qualified health rn care transition/appropriate source: Data complexity level: Minimal; minimal or none RISKS SECTION: OTC Medication Use (Zofran) - Low complexity Lifestyle modification (avoid dairy) - Minimal complexity Risks complexity level (highest from above): Low Attestation The patient consented to the use of [employer] software for draft documentation of the visit consistent with [facility] s Notice of Privacy Practices. PAST MEDICAL HISTORY Diagnosis Date Abnormal glandular Papanicolaou smear of cervix 10/05/2010 Controlled type 2 diabetes mellitus without complication, without long-term current use of insulin (HCC) 05/03/2016 Current use of proton pump inhibitor 11/15/2016 Mg checked 01/2017 DUB (dysfunctional uterine bleeding) 01/18/2013 Dyslipidemia 06/05/2014 Elevated LFTs 06/10/2015 Erythrocytosis 03/27/2022 Seen Hematology 09/2018 with neg w/u Essential hypertension with goal blood pressure less than 130/85 04/26/2016 Fatty liver 06/13/2014 Gastroesophageal reflux disease without esophagitis 06/10/2015 Resolved. Generalized anxiety disorder 01/02/2016 Hypomagnesemia 04/02/2019 Large breasts 08/23/2017 Had breast reduction 02/16/2018 Mild intermittent asthma without complication 11/15/2016 Moderate episode of recurrent major depressive disorder (HCC) 11/15/2016 Morbid obesity with body mass index (BMI) of 45.0 to 49.9 in adult ([facility]) 07/13/2017 Muscle spasm 08/23/2017 MVP (mitral valve prolapse) Neck pain on left side 08/23/2017 Obesity (BMI 30-39.9) 07/13/2017 PCOS (polycystic ovarian syndrome) 01/18/2013 PTSD (post-traumatic stress disorder) 01/02/2016 Pulmonary HTN ([facility]) Seeing Dr. Campbell Routine gynecological examination Sees Dr. Estrada Seronegative rheumatoid arthritis ([facility]) 07/26/2019 Seeing [facility] Suicidal behavior with attempted self-injury ([facility]) 08/19/2020 08/17/2020: overdose on muscle relaxors, Sent to inpatient unit [facility] Suicidal behavior with attempted self-injury ([facility]) 08/19/2020 08/17/2020: overdose on muscle relaxors, Sent to inpatient unit [facility] Type 2 diabetes mellitus with hyperglycemia, without long-term current use of insulin ([facility]) 05/03/2016 Vitamin D deficiency 02/21/2019 PAST SURGICAL HISTORY Procedure Laterality Date *STRESS TEST PC 02/2015 NL APPENDECTOMY 14y/o open case CARPAL TUNNEL [id number] COLONOSCOPY 02/14/2024 normal colon COLONOSCOPY FLX DX W/COLLJ SPEC WHEN PFRMD 08/05/2015 Colonoscopy out pt [facility] EGD 02/14/2024 ESOPHAGOGASTRODUODENOSCOPY TRANSORAL DIAGNOSTIC 08/05/2015 EGD out pt [facility] HYSTERECTOMY HX LAPAROSCOPY SURG CHOLECYSTECTOMY [id number] Cholecystectomy, lap PAST SURGICAL HISTORY OF 02/2014 right meniscus repair PAST SURGICAL HISTORY OF 01/18/2017 right medial meniscal tear repair PAST SURGICAL HISTORY OF 02/2018 breast reduction surgery PAST SURGICAL HISTORY OF Right meniscus repair FAMILY HISTORY Problem Relation Age of Onset other (Parkinson) Mother Diabetes Father Coronary Artery Disease Father 51 other (crohns) Sister Breast Cancer Maternal Grandmother Heart Maternal Grandmother Diabetes Maternal Grandmother Colon Cancer Maternal Grandfather Heart Maternal Uncle Coronary Artery Disease Maternal Uncle first in late 30's Social History Tobacco Use Smoking status: Former Current packs/day: 0.00 Average packs/day: 0.5 packs/day for 10.0 years (5.0 ttl pk-yrs) Types: Cigarettes Start date: 09/20/2002 Quit date: 09/20/2012 Years since quittin.3 Smokeless tobacco: Never Tobacco comments: Father smoked in childhood home. Substance Use Topics Alcohol use: Not Currently Comment: 3-4 at time twice a year, mixed drinks Drug use: No Current Outpatient Medications Medication Sig sulfaSALAzine (AZULFIDINE) 500 mg tablet Take 5 tablets by mouth once daily. Per Rheumatology ondansetron (ZOFRAN) 4 mg tablet TAKE 1 TABLET BY MOUTH DAILY NEEDED FOR NAUSEA AND VOMITING dicyclomine (BENTYL) 20 mg tablet Take one tablet by mouth three times daily as needed for abdominal cramping JARDIANCE 10 mg tablet Take 1 tablet by mouth every afternoon. TRUE METRIX GLUCOSE METER as directed. promethazine (PHENERGAN) 25 mg tablet Take 1 tablet by mouth every 4 hours as needed for nausea/vomiting. nadolol (CORGARD) 40 mg tablet Take 1 tablet by mouth two times a day. dulaglutide (TRULICITY) 1.5 mg/0.5 mL pen injector Inject 1.5 mg subcutaneously one time a week. Inject once per week. Discard Pen After omeprazole (PRILOSEC) 40 mg capsule Take 1 capsule by mouth once daily. metFORMIN ER (GLUCOPHAGE XR) 500 mg 24 hr tablet Take 2 tablets by mouth two times a day. desvenlafaxine 100 mg Tb24 Take 1 Tablet By Oral Route 1 time per day mirtazapine (REMERON) 15 mg tablet Take 1 Tablet By Oral Route at bedtime. Insulin Weston, Disposable, (PEN NEEDLE) 29 gauge x 1/2 Use one needle per dose. one per day blood sugar diagnostic (BLOOD GLUCOSE TEST) test strip Test blood sugar(s) 2 times daily. Dx: Type 2 DM - Uncontrolled E11.65 Insulin: yes Lancets lancets Test blood sugar(s) 1 times daily. Dx: Type 2 DM - Uncontrolled E11.65 Insulin: No furosemide (LASIX) 20 mg tablet Take one tab by mouth as need when you have a 3 lb weight gain or more longer then two days. gabapentin (NEURONTIN) 600 mg tablet Take 1 tablet by mouth twice daily for 180 days. Per [facility] prazosin (MINIPRESS) 1 mg cap Take 3 caps AT BEDTIME for Anxiety No current facility-administered medications for this visit. ALLERGIES Allergen Reactions Lamictal [Lamotrigi* Other: See Comments Made her suicidal Toradol [Ketorolac] Shortness of Breath Elevates BP; dyspnea Zoloft [Sertraline * Other: See Comments suicidal. Adhesive Other: See Comments Per pt not allergic to adhesive tape - its paper tape that she's allergic to Ibuprofen Unknown Naproxen Other: See Comments Psyllium Unknown Actos [Pioglitazone* Other: See Comments Sweats and chills Celexa [Citalopram] Intolerance Electrical shock feelings Eggs [Egg] GI Upset Fenofibrate GI Upset Lipitor [Atorvastat* Myalgia Plaquenil [Hydroxyc* Other: See Comments GI upset and pain Pravachol [Pravasta* GI Upset Zocor [Simvastatin] Myalgia PLAN: - Red flags discussed for need for in person care - All questions answered Ramez Fernandez PA-C [facility] note* Diagnosis Onset Date Resolution Status Admit Date Essential hypertension acute Fe bruary 2024 2:42pm Diabetes chronic January 09, 2025 2:42pm Multiple joint pain noneactive Febru rosa2024 2:42pm Autoimmune disease noneactive Februa 2024 2:42pm Mixed hyperlipidemia noneactive Febr uary 2024 2:42pm Anxiety and depression noneactive Fe bruary 2024 2:42pm Mitral valve prolapse noneactive Feb ruary 2024 2:42pm Celiac disease noneactive December 152024 2:42pm [facility] Work Phone: 1(199) 354-631902-27-2025 Evaluation note* Diagnosis Onset Date Resolution Status Admit Date Essential hypertension acute Fe bruary 2024 2:42pm Diabetes chronic January 09, 2025 2:42pm Multiple joint pain noneactive Febru rosa 2024 2:42pm Autoimmune disease noneactive Februa ry 2024 2:42pm Mixed hyperlipidemia noneactive Febr uary 2024 2:42pm Anxiety and depression noneactive Fe bruary 2024 2:42pm Mitral valve prolapse noneactive Feb ruary 2024 2:42pm Celiac disease noneactive December 152024 2:42pm Essential hypertension acute 2024 10:42am Diabetes chronic May 01 10:42am Multiple joint pain noneactive May 01, 2025 10:42am Autoimmune disease noneactive April 132024 10:42am Mixed hyperlipidemia noneactive May 01, 2025 10:42am Anxiety and depression noneactive Ju ne 2024 10:42am Mitral valve prolapse noneactive Jose Martin e 2024 10:42am Celiac disease noneactive May 01, 2025 10:42am [facility] Work Phone: [phone]) 914-378801-29-2025 Telephone encounter Note* Telephone Encounter - Aaliyah Jay Tech - 12/11/2024 10:20 AM EST PSS called patient to get her rescheduled due to provider being unavailable that day; Left voicemail [facility]01-29-2025 Miscellaneous Notes* Telephone Encounter - Aaliyah Jay Tech - 12/11/2024 10:20 AM EST PSS called patient to get her rescheduled due to provider being unavailable that day; Left voicemail documented in [facility]25 NotePatient Outreach (FAMPWS) LUKASZ DIAZ ([id number]) 1980 F Date Time Provider Department 12/10/24 GIOVANNI, FRANCESCO A FAMPWS During your visit today, we recorded the following information about you: Allergies As of Date: 12/10/2024 Noted Allergy Reaction LAMICTAL (LAMOTRIGINE) 03/19/2021 14 - Other: See Comments Comments: Made her suicidal TORADOL (KETOROLAC) 03/06/2014 12 - Shortness of Breath Comments: Elevates BP; dyspnea ZOLOFT (SERTRALINE HCL) 01/02/2016 14 - Other: See Comments Comments: suicidal. ADHESIVE 02/12/2019 14 - Other: See Comments Comments: Per pt not allergic to adhesive tape - its paper tape that she's allergic to IBUPROFEN 01/10/2024 16 - Unknown NAPROXEN 02/12/2019 14 - Other: See Comments PSYLLIUM 01/10/2024 16 - Unknown ACTOS (PIOGLITAZONE HCL) 11/15/2016 14 - Other: See Comments Comments: Sweats and chills CELEXA (CITALOPRAM) 08/22/2018 5 - Intolerance Comments: Electrical shock feelings EGGS (EGG) 08/28/2013 8 - GI Upset FENOFIBRATE 07/27/2017 8 - GI Upset LIPITOR (ATORVASTATIN) 11/09/2015 17 - Myalgia PLAQUENIL (HYDROXYCHLOROQUINE) 02/12/2020 14 - Other: See Comments Comments: GI upset and pain PRAVACHOL (PRAVASTATIN SODIUM) 07/27/2017 8 - GI Upset ZOCOR (SIMVASTATIN) 02/12/2020 17 - Myalgia Date Reviewed: 09/30/2024 Reviewed by: Bertha Lovelace MA - Fully Assessed Visit Diagnosis:Encounter for screening mammogram for breast cancer [Z12.31] Order(s):[facility] SCREENING [facility]LA [[id number]] Order #: [id number] FUTURE Prescriptions as of 01/10/2025 - ondansetron (ZOFRAN) 4 mg tablet TAKE 1 TABLET BY MOUTH DAILY NEEDED FOR NAUSEA AND VOMITING - dicyclomine (BENTYL) 20 mg tablet Take one tablet by mouth three times daily as needed for abdominal cramping - JARDIANCE 10 mg tablet Take 1 tablet by mouth every afternoon. - TRUE METRIX GLUCOSE METER as directed. - promethazine (PHENERGAN) 25 mg tablet Take 1 tablet by mouth every 4 hours as needed for nausea/vomiting. - nadolol (CORGARD) 40 mg tablet Take 1 tablet by mouth two times a day. - dulaglutide (TRULICITY) 1.5 mg/0.5 mL pen injector Inject 1.5 mg subcutaneously one time a week. Inject once per week. Discard Pen After - omeprazole (PRILOSEC) 40 mg capsule Take 1 capsule by mouth once daily. - metFORMIN ER (GLUCOPHAGE XR) 500 mg 24 hr tablet Take 2 tablets by mouth two times a day. - desvenlafaxine 100 mg Tb24 Take 1 Tablet By Oral Route 1 time per day - mirtazapine (REMERON) 15 mg tablet Take 1 Tablet By Oral Route at bedtime. - Insulin Weston, Disposable, (PEN NEEDLE) 29 gauge x 1/2 Use one needle per dose. one per day - blood sugar diagnostic (BLOOD GLUCOSE TEST) test strip Test blood sugar(s) 2 times daily. Dx: Type 2 DM - Uncontrolled E11.65 Insulin: yes - Lancets lancets Test blood sugar(s) 1 times daily. Dx: Type 2 DM - Uncontrolled E11.65 Insulin: No - furosemide (LASIX) 20 mg tablet Take one tab by mouth as need when you have a 3 lb weight gain or more longer then two days. - gabapentin (NEURONTIN) 600 mg tablet Take 1 tablet by mouth twice daily for 180 days. Per [facility] - prazosin (MINIPRESS) 1 mg cap Take 3 caps AT BEDTIME for Anxiety Meds Comments as of 02/12/2019: Doesn't take Amaryl Birgit Sanchez RN 9:50 PM Problem List As Of Date 12/10/2024 Noted Resolved Abdominal pain, right lower quadrant [R10.31] 10/05/2010 01/18/2013 Abnormal glandular Papanicolaou smear of cervix*10/05/2010 PCOS (polycystic ovarian syndrome) [E28.2] 01/18/2013 DUB (dysfunctional uterine bleeding) [N93.8] 01/18/2013 MVP (mitral valve prolapse) [I34.1] Pulmonary HTN (HCC) [I27.20] Encounter for routine gynecological examination* Dyslipidemia [E78.5] 06/05/2014 Morbid obesity (HCC) [E66.01] 03/03/2015 07/13/2017 PTSD (post-traumatic stress disorder) [F43.10] 01/02/2016 Generalized anxiety disorder [F41.1] 01/02/2016 Essential hypertension with goal blood pressure*04/26/2016 Type 2 diabetes mellitus with hyperglycemia, wi*05/03/2016 Mild intermittent asthma without complication [*11/15/2016 Moderate episode of recurrent major depressive *11/15/2016 Current use of proton pump inhibitor [Z79.899] 11/15/2016 03/24/2022 Obesity (BMI 30-39.9) [E66.9] 07/13/2017 Neck pain on left side [M54.2] 08/23/2017 Muscle spasm [M62.838] 08/23/2017 Large breasts [N62] 08/23/2017 Well adult exam [Z00.00] 05/17/2018 Vitamin D deficiency [E55.9] 02/21/2019 Hypomagnesemia [E83.42] 04/02/2019 Seronegative rheumatoid arthritis (HCC) [M06.00]07/26/2019 Suicidal behavior with attempted self-injury (H*08/19/2020 03/24/2022 Medication management [Z79.899] 03/24/2022 Erythrocytosis [D75.1] 03/27/2022 SANTOS (nonalcoholic steatohepatitis) [K75.81] 09/04/2023 Encounter Status:Closed by CLEMENT SPRINGER on 01/10/25[facility] 11-28-2024 Telephone encounter Note* Telephone Encounter - Jaquelin Feldman - 11/28/2024 2:19 PM EST CALLED PATIENT LMOM APPLULA SOONER IN ORAL SURGERY CALL BACK WE CAN MOVE HER UP FROM [place]ARCH [id number] Miscellaneous Notes* Telephone Encounter - Jaquelin Feldman - 11/28/2024 2:19 PM EST CALLED PATIENT LMOM APPTS SOONER IN ORAL SURGERY CALL BACK WE CAN MOVE HER UP FROM MARCH documented in this [id number] History of Present illness Narrative* FANTA Castillo - 11/27/2024 2:20 PM EST REASON FOR VISIT: Joint pain HISTORY OF PRESENT ILLNESS Ms. Lukasz Diaz, is seen [facility] TO RE-ESTABLISH care on arthritis Last seen in 2019, at that time she was on methotrexate and HCQ. Methotrexate was stopped later as she had transaminitis Recent diagnosis of celiac disease Currently having a major flare up of joint symptoms- pain and stiffness in the hands, knees, low back Unable to work (she has been working 4 days/month) Severe fatigue Started on prednisone and meloxicam by the PCP, which helped Unable to be on prednisone halfway due to diabetes Recent RUQ scan showed increased echogenicity of liver Initial history: She has family history of RA in her mother Patient history malar rash, joint pain especially over the MCPs, both ankle joints, knee joints andshoulders and sometimes over the wrist. Significant morning stiffness. Swelling over the MCP jointsand ankles. Previously she had negative LUCI test according to her. Workup done here last visit was negative for any/Anca/RF/CCP. Sed rate and CRP were mildly elevated. Hand x-rays were normal except for possible enthesitis around the PIP joints She has Raynaud symptoms, no history of any fingertip ulcers. Mild dryness of the mouth No history of blood clots or miscarriages. Patient has history of chronic pulmonary hypertension diagnosed 11 years ago. Most recent evaluation here including right heart catheterization showed no evidence for pulmonary artery hypertension. Has been having joint pain, malar rash, raynauds -- She was started on hydroxychloroquine from 08/01 and methotrexate injection from 10/01 with improvement of symtoms. Results for LUKASZ DIAZ ( ) as of 07/25/2019 11:35 Ref. Range 07/12/2019 15:08 07/12/2019 15:09 RHEUMATOID FACTOR Latest Ref Range: <=14 IU/mL <10 ANCA (ANTI NEUTROPHIL CYTOPLASMIC ANTIBODY) Latest Ref Range: Negative Negative ANTI-MYELOPEROXIDASE AB Latest Ref Range: Negative Negative ANTI-PROTEINASE 3 AB Latest Ref Range: Negative Negative CYCLIC CITRULLINATE PEPTIDE AB Latest Ref Range: <5.0 U/mL <0.5 LUCI SCREEN, MULTIPLEX Latest Ref Range: Negative Negative LUCI, IFA Latest Ref Range: Negative Negative C-REACTIVE PROTEIN Latest Ref Range: <10.00 mg/L 13.90 (H) Results for LUKASZ DIAZ ( ) as of 07/25/2019 11:35 Ref. Range 07/12/2019 15:09 SEDIMENTATION RATE AUTOMATED Latest Ref Range: <20 mm/hr 30 (H) REVIEW OF SYSTEMS A complete review of systems was obtained and positive only for the above noted in the HPI otherwise negative. ALLERGY she is allergic to hydroxychloroquine sulfate, penicillins, and toradol [ketorolac tromethamine]. MEDICATIONS Current Outpatient Medications Medication Sig B-D INSULIN SYRINGE 1CC/25GX1 25G X 1 1 ML Misc USE DIRECTED FOR WEEKLY METHOTREXATE INJECTIONS Desvenlafaxine Succinate 100 MG Tab SR 24 HR Take 1 tablet by mouth daily. gabapentin 600 MG tablet Take 1 tablet by mouth 2 times daily. Jardiance 10 MG tablet Take 1 tablet by mouth Daily (with dinner). Meloxicam 7.5 MG tablet Take 1 tablet by mouth daily. metformin 1000 MG Tab tablet Take 1 tablet by mouth 2 times daily with meals. Mirtazapine 30 MG tablet Take 1 tablet by mouth at bedtime. nadolol (CORGARD) 40 MG Tab tablet Take 1 tablet by mouth 2 times daily. Weston & Syringes (1CC TB SYRINGE) Misc Use for weekly Methotrexate injections nitroGLYCERIN 2 % Ointment ointment Apply a thin layer over the affected finger, twice daily Ondansetron 4 MG tablet TAKE 1 TABLET BY MOUTH DAILY NEEDED FOR NAUSEA AND VOMITING Prazosin 1 MG capsule take 3 capsules by mouth every night at bedtime Trulicity 1.5 MG/0.5ML Solution Auto-injector injection INJECT 1.5 mg (0.5 mL) subcutaneously everyweek furOSEmide 40 MG Tab tablet Take 40 mg by mouth daily. 40 mg alternating with 80 mg daily (Patient not taking: Reported on 11/27/2024) LORazepam (ATIVAN PO) Take 1 mg by mouth daily as needed. (Patient not taking: Reported on 11/27/2024) spironolactone (ALDACTONE) 50 MG Tab tablet Take 50 mg by mouth daily. (Patient not taking: Reported on 11/27/2024) PAST MEDICAL HISTORY Past Medical History: Diagnosis Date Anxiety disorder Dyslipidemia Fatty liver GERD (gastroesophageal reflux disease) Hypertension Inflammatory arthritis 07/25/2019 Type 2 diabetes mellitus PAST SURGICAL HISTORY She has a past surgical history that includes appendectomy (1994); release carpal tunnel (2003); hysterectomy; cholecystectomy (2003); arthroscopy knee w/ meniscus repair (2013 and 2016); and reduction revision breast (2018). FAMILY HISTORY She family history includes Heart Disease - Other in her maternal grandfather; Myocardial Infarction in her father. SOCIAL HISTORY She reports that she quit smoking about 12 years ago. Her smoking use included cigarettes. She has never used smokeless tobacco. She reports that she does not drink alcohol and does not use drugs. PHYSICAL EXAM Blood pressure 112/70, pulse 83, height 1.753 m (5' 9), weight 110.2 kg (243 lb), SpO2 96%. GENERAL: She is in no apparent distress. Skin (Limited): malar rash and erythema over the face, improved from previous visit HEENT: No oral ulcers,parotid gland enlargement, uveitis. Neck: supple, symmetrical, no adenopathy and no thyromegaly , no tenderness/mass/nodules Extremities: No edema. Musculoskeletal: swelling over 2nd and 3rd MCP joints today Able to make fist bilaterally with some difficulty IMPRESSION / PLAN: 1. Inflammatory arthritis Ms. Diaz has polyarthralgias, swelling over ankle and MCP joints, significant morning stiffness mild Raynaud's. She has pulmonary hypertension diagnosed 11 years ago, also recent right heart catheterization was normal.. Her serological workup was negative . Mild elevation of inflammatory markers.Given that she has evidence for inflammation on exam along with elevated inflammatory markers, it is possible that she may have seronegative rheumatoid arthritis. We discussed treatment. She has improvement of symptoms with hydroxychloroquine and methotrexate, but had allergic rrash to HCQ Won't be able to use methotrexate as she has probable SANTOS Seronegative RA: - Obtain hand xrays today - start sulfasalazine 1500 mg daily as a DMARD -- consider biologic if there is xrays findingsof RA 2. NAFLD: Weight loss is the best treatment. Comprehensive lifestyle modification, which includes changes in diet and increase in exercise, has the greatest, longest lasting weight loss benefit. exercise to keep weight off. Exercise Start small, with a 5-10 minute brisk walk for example, and gradually build up. Aim for 30 minutes of moderate intensity exercise on most days of the week (150 minutes/ week). Avoid Alcohol Minimize alcohol as much as possible. If you do drink, do not drink more than 1-2 drinks a day. Treat high blood sugar and high cholesterol Ask your primary provider if you have high blood sugar or high cholesterol. Certain medications can help lower blood sugar levels and cholesterol. 3. Raynauds: Educated regarding both the potential causes of a Raynaud attack and the general measures to help prevent and terminate an episode. General measures that help to prevent or diminish the severity of attacks of RP include avoiding cold exposure, maintaining warmth of the whole body, and avoiding sympathomimetic medications and emotional stress I will be seeing Ms. Diaz back in the office in 2 months to review her progress and discuss further therapeutic options, especially if we need to increase the dose of Norvasc. Thank you for allowing us to participate in her care. Should you have any questions, please do not hesitate to contact us. Coleen Hu MD fast food restaurant manager Department of Rheumatology [place], [place] [facility] Tele[facility] encounter Note* Telephone Encounter - Mandeep Alberto MA - 11/07/2024 7:39 AM EST Patient phones requesting refills as follows: Requested Prescriptions Pending Prescriptions Disp Refills ondansetron (ZOFRAN) 4 mg tablet [Pharmacy Med Name: ondansetron HCl 4 mg tablet] 30 tablet 3 Sig: TAKE 1 TABLET BY MOUTH DAILY NEEDED FOR NAUSEA AND VOMITING Please review and advise. Mandeep Alberto MA [facility]12-26-2024 Miscellaneous Notes* Telephone Encounter - Mandeep Alberto MA - 11/07/2024 7:39 AM EST Patient phones requesting refills as follows: Requested Prescriptions Pending Prescriptions Disp Refills ondansetron (ZOFRAN) 4 mg tablet [Pharmacy Med Name: ondansetron HCl 4 mg tablet] 30 tablet 3 Sig: TAKE 1 TABLET BY MOUTH DAILY NEEDED FOR NAUSEA AND VOMITING Please review and advise. Mandeep Alberto MA documented in this [facility]Sy[facility]11-[facility]24 NoteHNO ID: [id number] Author: JOSE RAUL BOONE APRN.MAT MAN Service: ? Author Type: Nurse Practitioner Type: Progress Notes Filed: 09/30/2024 19:55 Note Text: CC: Patient presents with: Chest Congestion: head congestion, cough x 8-9 days HPI: Lukasz Diaz is a 43 year old female who presents to the office with complaint of head congestion and sinus symptoms for 9 days. Symptoms are staying the same. Associated symptoms includes nasal congestion and facial pain/pressure. Denies nausea, vomiting , and diarrhea. Treatments tried include nothing so far. with no relief of symptoms. Sick contacts: unknown. History of asthma, frequent episodes of bronchitis, chronic bronchitis, bronchiectasis or COPD: No Smoker: No Seasonal/environmental allergies: No The ROS is otherwise negative. The patient's pmh, medications, allergies, and past visits are reviewed. PHYSICAL EXAM: BP 100/64 Pulse 88 Temp 36.7 ?C (98.1 ?F) Resp 16 Wt 109.4 kg (241 lb 2.9 oz) LMP 09/02/2015 SpO2 99% BMI 35.62 kg/m? General appearance: alert, cooperative, pleasant, in no acute distress Head: Normocephalic Eyes: EOM's intact, conjunctiva pink and moist, no icterus, sclera white, non-injected Ears: Right ear: External ear/canal- Normal, TM - clear with good landmarks. Left ear: External ear/canal- Normal, TM - clear with good landmarks Oropharynx:moist without lesions, No erythema, exudates or tonsillar hypertrophy. Heart: Negative. RRR without obvious murmur, gallop, or rubs. No ectopy. Lungs: clear to auscultation, without rales or wheeze, good air exchange PAST MEDICAL HISTORY Diagnosis Date Abnormal glandular Papanicolaou smear of cervix 10/05/2010 Controlled type 2 diabetes mellitus without complication, without long-term current use of insulin (HCC) 05/03/2016 Current use of proton pump inhibitor 11/15/2016 Mg checked 01/2017 DUB (dysfunctional uterine bleeding) 01/18/2013 Dyslipidemia 06/05/2014 Elevated LFTs 06/10/2015 Erythrocytosis 03/27/2022 Seen Hematology 09/2018 with neg w/u Essential hypertension with goal blood pressure less than 130/85 04/26/2016 Fatty liver 06/13/2014 Gastroesophageal reflux disease without esophagitis 06/10/2015 Resolved. Generalized anxiety disorder 01/02/2016 Hypomagnesemia 04/02/2019 Large breasts 08/23/2017 Had breast reduction 02/16/2018 Mild intermittent asthma without complication 11/15/2016 Moderate episode of recurrent major depressive disorder (HCC) 11/15/2016 Morbid obesity with body mass index (BMI) of 45.0 to 49.9 in adult (HCC) 07/13/2017 Muscle spasm 08/23/2017 MVP (mitral valve prolapse) Neck pain on left side 08/23/2017 Obesity (BMI 30-39.9) 07/13/2017 PCOS (polycystic ovarian syndrome) 01/18/2013 PTSD (post-traumatic stress disorder) 01/02/2016 Pulmonary HTN ([facility]) Seeing Dr. Campbell Routine gynecological examination Sees Dr. Estrada Seronegative rheumatoid arthritis ([facility]) 07/26/2019 Seeing [facility] Suicidal behavior with attempted self-injury ([facility]) 08/19/2020 08/17/2020: overdose on muscle relaxors, Sent to inpatient unit [facility] Suicidal behavior with attempted self-injury ([facility]) 08/19/2020 08/17/2020: overdose on muscle relaxors, Sent to inpatient unit [facility] Type 2 diabetes mellitus with hyperglycemia, without long-term current use of insulin ([facility]) 05/03/2016 Vitamin D deficiency 02/21/2019 PAST SURGICAL HISTORY Procedure Laterality Date *STRESS TEST PC 02/2015 NL APPENDECTOMY 14y/o open case CARPAL TUNNEL [id number] COLONOSCOPY 02/14/2024 normal colon COLONOSCOPY FLX DX W/COLLJ SPEC WHEN PFRMD 08/05/2015 Colonoscopy out pt [facility] EGD 02/14/2024 ESOPHAGOGASTRODUODENOSCOPY TRANSORAL DIAGNOSTIC 08/05/2015 EGD out pt [facility] HYSTERECTOMY HX LAPAROSCOPY SURG CHOLECYSTECTOMY [id number] Cholecystectomy, lap PAST SURGICAL HISTORY OF 02/2014 right meniscus repair PAST SURGICAL HISTORY OF 01/18/2017 right medial meniscal tear repair PAST SURGICAL HISTORY OF 02/2018 breast reduction surgery PAST SURGICAL HISTORY OF Right meniscus repair ALLERGIES Lamictal [Lamotrigine], Toradol [Ketorolac], Zoloft [Sertraline Hcl], Adhesive, Ibuprofen, Naproxen, Psyllium, Actos [Pioglitazone Hcl], Celexa [Citalopram], Eggs [Egg], Fenofibrate, Lipitor [Atorvastatin], Plaquenil [Hydroxychloroquine], Pravachol [Pravastatin Sodium], and Zocor [Simvastatin] MEDICATIONS dicyclomine (BENTYL) 20 mg tablet Take one tablet by mouth three times daily as needed for abdominal cramping ondansetron (ZOFRAN) 4 mg tablet Take 1 tablet by mouth once daily as needed for nausea/vomiting (for nausea.). JARDIANCE 10 mg tablet Take 1 tablet by mouth every afternoon. TRUE METRIX GLUCOSE METER as directed. promethazine (PHENERGAN) 25 mg tablet Take 1 tablet by mouth every 4 hours as needed for nausea/vomiting. nadolol (CORGARD) 40 mg tablet Take 1 tablet by mouth two times a day. dulaglutide (TRULICITY) 1.5 mg/ (more content not included)...[facility]11-18-2024 History of Present illness Narrative* Jose Raul Boone APRN.[facility] - 09/30/2024 7:40 PM EST CC: Patient presents with: Chest Congestion: head congestion, cough x 8-9 days HPI: Lukasz Diaz is a 43 year old female who presents to the office with complaint of head congestionand sinus symptoms for 9 days. Symptoms are staying the same. Associated symptoms includes nasal congestion and facial pain/pressure. Denies nausea, vomiting , and diarrhea. Treatments tried include nothing so far. with no relief of symptoms. Sick contacts: unknown. History of asthma, frequent episodes of bronchitis, chronic bronchitis, bronchiectasis or COPD: No Smoker: No Seasonal/environmental allergies: No The ROS is otherwise negative. The patient's pmh, medications, allergies, and past visits are reviewed. PHYSICAL EXAM: BP 100/64 Pulse 88 Temp 36.7 C (98.1 F) Resp 16 Wt 109.4 kg (241 lb 2.9 oz) LMP 09/02/2015 SpO2 99% BMI 35.62 kg/m General appearance: alert, cooperative, pleasant, in no acute distress Head: Normocephalic Eyes: EOM's intact, conjunctiva pink and moist, no icterus, sclera white, non-injected Ears: Right ear: External ear/canal- Normal, TM - clear with good landmarks. Left ear: External ear/canal- Normal, TM - clear with good landmarks Oropharynx:moist without lesions, No erythema, exudates or tonsillar hypertrophy. Heart: Negative. RRR without obvious murmur, gallop, or rubs. No ectopy. Lungs: clear to auscultation, without rales or wheeze, good air exchange PAST MEDICAL HISTORY Diagnosis Date Abnormal glandular Papanicolaou smear of cervix 10/05/2010 Controlled type 2 diabetes mellitus without complication, without long-term current use of insulin ([facility]) 05/03/2016 Current use of proton pump inhibitor 11/15/2016 Mg checked 01/2017 DUB (dysfunctional uterine bleeding) 01/18/2013 Dyslipidemia 06/05/2014 Elevated LFTs 06/10/2015 Erythrocytosis 03/27/2022 Seen Hematology 09/2018 with neg w/u Essential hypertension with goal blood pressure less than 130/85 04/26/2016 Fatty liver 06/13/2014 Gastroesophageal reflux disease without esophagitis 06/10/2015 Resolved. Generalized anxiety disorder 01/02/2016 Hypomagnesemia 04/02/2019 Large breasts 08/23/2017 Had breast reduction 02/16/2018 Mild intermittent asthma without complication 11/15/2016 Moderate episode of recurrent major depressive disorder ([facility]) 11/15/2016 Morbid obesity with body mass index (BMI) of 45.0 to 49.9 in adult ([facility]) 07/13/2017 Muscle spasm 08/23/2017 MVP (mitral valve prolapse) Neck pain on left side 08/23/2017 Obesity (BMI 30-39.9) 07/13/2017 PCOS (polycystic ovarian syndrome) 01/18/2013 PTSD (post-traumatic stress disorder) 01/02/2016 Pulmonary HTN ([facility]) Seeing Dr. Campbell Routine gynecological examination Sees Dr. Estrada Seronegative rheumatoid arthritis ([facility]) 07/26/2019 Seeing [facility] Suicidal behavior with attempted self-injury ([facility]) 08/19/2020 08/17/2020: overdose on muscle relaxors, Sent to inpatient unit [facility] Suicidal behavior with attempted self-injury ([facility]) 08/19/2020 08/17/2020: overdose on muscle relaxors, Sent to inpatient unit [facility] Type 2 diabetes mellitus with hyperglycemia, without long-term current use of insulin (HCC) 05/03/2016 Vitamin D deficiency 02/21/2019 PAST SURGICAL HISTORY Procedure Laterality Date *STRESS TEST PC 02/2015 NL APPENDECTOMY 14y/o open case CARPAL TUNNEL [id number] COLONOSCOPY 02/14/2024 normal colon COLONOSCOPY FLX DX W/COLLJ SPEC WHEN PFRMD 08/05/2015 Colonoscopy out pt [facility] EGD 02/14/2024 ESOPHAGOGASTRODUODENOSCOPY TRANSORAL DIAGNOSTIC 08/05/2015 EGD out pt [facility] HYSTERECTOMY HX LAPAROSCOPY SURG CHOLECYSTECTOMY [id number] Cholecystectomy, lap PAST SURGICAL HISTORY OF 02/2014 right meniscus repair PAST SURGICAL HISTORY OF 01/18/2017 right medial meniscal tear repair PAST SURGICAL HISTORY OF 02/2018 breast reduction surgery PAST SURGICAL HISTORY OF Right meniscus repair ALLERGIES Lamictal [Lamotrigine], Toradol [Ketorolac], Zoloft [Sertraline Hcl], Adhesive, Ibuprofen, Naproxen, Psyllium, Actos [Pioglitazone Hcl], Celexa [Citalopram], Eggs [Egg], Fenofibrate, Lipitor [Atorvastatin], Plaquenil [Hydroxychloroquine], Pravachol [Pravastatin Sodium], and Zocor [Simvastatin] MEDICATIONS dicyclomine (BENTYL) 20 mg tablet Take one tablet by mouth three times daily as needed for abdominal cramping ondansetron (ZOFRAN) 4 mg tablet Take 1 tablet by mouth once daily as needed for nausea/vomiting (for nausea.). JARDIANCE 10 mg tablet Take 1 tablet by mouth every afternoon. TRUE METRIX GLUCOSE METER as directed. promethazine (PHENERGAN) 25 mg tablet Take 1 tablet by mouth every 4 hours as needed for nausea/vomiting. nadolol (CORGARD) 40 mg tablet Take 1 tablet by mouth two times a day. dulaglutide (TRULICITY) 1.5 mg/0.5 mL pen injector Inject 1.5 mg subcutaneously one time a week. Inject once per week. Discard Pen After omeprazole (PRILOSEC) 40 mg capsule Take 1 capsule by mouth once daily. metFORMIN ER (GLUCOPHAGE XR) 500 mg 24 hr tablet Take 2 tablets by mouth two times a day. desvenlafaxine 100 mg Tb24 Take 1 Tablet By Oral Route 1 time per day mirtazapine (REMERON) 15 mg tablet Take 1 Tablet By Oral Route at bedtime. Insulin [place], Disposable, (PEN NEEDLE) 29 gauge x 1/2 Use one needle per dose. one per day blood sugar diagnostic (BLOOD GLUCOSE TEST) test strip Test blood sugar(s) 2 times daily. Dx: Type 2 DM - Uncontrolled E11.65 Insulin: yes Lancets lancets Test blood sugar(s) 1 times daily. Dx: Type 2 DM - Uncontrolled E11.65 Insulin: No furosemide (LASIX) 20 mg tablet Take one tab by mouth as need when you have a 3 lb weight gain or more longer then two days. prazosin (MINIPRESS) 1 mg cap Take 3 caps AT BEDTIME for Anxiety doxycycline (VIBRA-TABS) 100 mg tablet Take 1 tablet by mouth two times a day for 7 days. gabapentin (NEURONTIN) 600 mg tablet Take 1 tablet by mouth twice daily for 180 days. Per [facility] FAMILY HISTORY Problem Relation Age of Onset other (Parkinson) Mother Diabetes Father Coronary Artery Disease Father 51 other (crohns) Sister Breast Cancer Maternal Grandmother Heart Maternal Grandmother Diabetes Maternal Grandmother Colon Cancer Maternal Grandfather Heart Maternal Uncle Coronary Artery Disease Maternal Uncle first in late 30's Social History Tobacco Use Smoking status: Former Current packs/day: 0.00 Average packs/day: 0.5 packs/day for 10.0 years (5.0 ttl pk-yrs) Types: Cigarettes Start date: 09/20/2002 Quit date: 09/20/2012 Years since quittin.0 Smokeless tobacco: Never Tobacco comments: Father smoked in childhood home. Substance Use Topics Alcohol use: Not Currently Comment: 3-4 at time twice a year, mixed drinks Drug use: No ASSESSMENT/PLAN: 1. Rhinosinusitis - ICD9: 473.9, ICD10: J32.9 - DOXYCYCLINE HYCLATE 100 MG TABLET Prescription instructions reviewed with patient as applicable. Potential red flag symptoms discussed with the patient. Reviewed appropriate action plan to take if red flag symptoms occur. Patient agreeable to treatment plan. Jose Raul Boone APRN.STEFANIE documented in this encounterSycam[facility] Center11-18-[facility]24 History of Present illness Narrative* Chin Lewis DMD, MD - 09/30/2024 10:26 AM EST Teaching Physician Note: I saw and evaluated the patient. I personally obtained the phillip and critical portions of the historyand physical exam. I reviewed the resident's documentation and discussed the patient with the resident. I agree with the resident's medical decision making as documented in the resident's note. Chin Lewis DMD, MD * Chaim Roberto DDS - 09/25/2024 2:25 PM EST Images from the original note were not included. FS PATIENT VISIT CHIEF COMPLAINT: Toothache HISTORY OF PRESENT ILLNESS: 43 year old Female presents to [facility] from referral source to be evaluated for extraction of tooth # 31. PMH: HTN,HLD,Mitral valve prolapse, SANTOS, Obesity, Severe dental anxiety, DM 2 (Hgba1c 8.5% from 11.9 % one year ago.) Pt reports waxing and waning pain from allteeth mentioned in the referral that limit their ability to chew, function normally, and perform oral hygiene. PAST MEDICAL HISTORY: No past medical history on file. There is no problem list on file for this patient. REVIEW OF SYSTEMS: A 12-point review of systems was completed. Negative unless otherwise stated in HPI. MEDICATIONS: No current outpatient medications on file. No current facility-administered medications for this visit. ALLERGIES: Bleach (skin irritation), Atorvastatin (Myalgia), Simvastatin (Myalgia), egg (GI upset), fenofibrate (GI upset), NSAID's, Hydroxychloroquine, Ketorolac (Difficulty breathing), Naproxen, Lamotrigine, Paper Tape. SURGICAL HX: No past surgical history on file. SOCIAL HX: No Significant findings CLINICAL EXAMINATION Extraoral examination: No significant findings No s/s of infection, redness or tenderness to palpation No facial asymmetry or swelling No appreciable LAD No popping/clicking/crepitus of TMJ b/l No tenderness to palpation of temporalis or masseter asymptomatic function Range of motion WNL CN V and VII intact Intraoral examination: Edentulous maxilla with complete upper denture Erythematous mucosa around dentition with plaque accumulation on mandibular teeth No pathological soft lesions appreciated Oral cancer screen negative Occlusion stable Oral hygiene poor #31 fractured at gumline Mallampati class: II RADIOGRAPHIC INTERPRETATION: [employer] Film sent by referral source on 09/25/2024, and Retained in our clinic files #31 heavily restored DIAGNOSIS: Caries ASSESSMENT: 43 year old Female presents to [facility] from referral source to be evaluated for extraction of tooth # 31. PMH: HTN,HLD,Mitral valve prolapse, SANTOS, Obesity, Severe dental anxiety, DM 2 (Hgba1c 8.5% from 11.9 % one year ago.) Pt reports waxing and waning pain from all teeth mentioned in the referral that limit their ability to chew, function normally, and perform oral hygiene. Reviewed procedure and complications associated with extractions ,including treatment options and no treatment. Opportunity given to ask all desired questions. Pertinent and more common complicationsof extractions discussed with the patient; pain, swelling, bruising, bleeding, infection (that may require further treatment such as hospitalizations), possible permanent numbness of the tongue, gums, teeth, lip, and chin, injury to adjacent structures (tooth, lip, cheek, jaw bone), damage to adjacent teeth, development of permanent TMJ symptoms/dysfunction, jaw fracture at time of surgery or afterwards, decision to leave root tips behind, displacement of tooth (or portion of) into adjacent spac es (such as sinus, floor of mouth, throat) and the development of sinus symptoms. Complications arenot limited to the above and may include others that are less common. PLAN: Extractions # 31 under LA with Oral sedation (1 mg of Ativan) -Notified patient that they have to come to appointment accompanied by someone over the legal age -Consent obtained at today's appointment -1 mg of Ativan Rx 'd to pharmacy of her choice Chaim Mooney DDS * Bg Jeong - 09/25/2024 1:55 PM EST Images from the original note were not included. PANO TAKEN AT PT DENTAL OFFICE documented in this [id number] History of Present illness Narrative* Chaim Roberto, HAYDEN - 09/25/2024 2:25 PM EST Images from the original note were not included. FS PATIENT VISIT CHIEF COMPLAINT: Toothache HISTORY OF PRESENT ILLNESS: 43 year old Female presents to [facility] clinic from referral source to be evaluated for extraction of tooth # 31. PMH: HTN,HLD,Mitral valve prolapse, SANTOS, Obesity, Severe dental anxiety, DM 2 (Hgba1c 8.5% from 11.9 % one year ago.) Pt reports waxing and waning pain from allteeth mentioned in the referral that limit their ability to chew, function normally, and perform oral hygiene. PAST MEDICAL HISTORY: No past medical history on file. There is no problem list on file for this patient. REVIEW OF SYSTEMS: A 12-point review of systems was completed. Negative unless otherwise stated in HPI. MEDICATIONS: No current outpatient medications on file. No current facility-administered medications for this visit. ALLERGIES: Bleach (skin irritation), Atorvastatin (Myalgia), Simvastatin (Myalgia), egg (GI upset), fenofibrate (GI upset), NSAID's, Hydroxychloroquine, Ketorolac (Difficulty breathing), Naproxen, Lamotrigine, Paper Tape. SURGICAL HX: No past surgical history on file. SOCIAL HX: No Significant findings CLINICAL EXAMINATION Extraoral examination: No significant findings No s/s of infection, redness or tenderness to palpation No facial asymmetry or swelling No appreciable LAD No popping/clicking/crepitus of TMJ b/l No tenderness to palpation of temporalis or masseter asymptomatic function Range of motion WNL CN V and VII intact Intraoral examination: Edentulous maxilla with complete upper denture Erythematous mucosa around dentition with plaque accumulation on mandibular teeth No pathological soft lesions appreciated Oral cancer screen negative Occlusion stable Oral hygiene poor #31 fractured at gumline Mallampati class: II RADIOGRAPHIC INTERPRETATION: [employer] Film sent by referral source on 09/25/2024, and Retained in our clinic files #31 heavily restored DIAGNOSIS: Caries ASSESSMENT: 43 year old Female presents to [facility] from referral source to be evaluated for extraction of tooth # 31. PMH: HTN,HLD,Mitral valve prolapse, SANTOS, Obesity, Severe dental anxiety, DM 2 (Hgba1c 8.5% from 11.9 % one year ago.) Pt reports waxing and waning pain from all teeth mentioned in the referral that limit their ability to chew, function normally, and perform oral hygiene. Reviewed procedure and complications associated with extractions ,including treatment options and no treatment. Opportunity given to ask all desired questions. Pertinent and more common complicationsof extractions discussed with the patient; pain, swelling, bruising, bleeding, infection (that may require further treatment such as hospitalizations), possible permanent numbness of the tongue, gums, teeth, lip, and chin, injury to adjacent structures (tooth, lip, cheek, jaw bone), damage to adjacent teeth, development of permanent TMJ symptoms/dysfunction, jaw fracture at time of surgery or afterwards, decision to leave root tips behind, displacement of tooth (or portion of) into adjacent spac es (such as sinus, floor of mouth, throat) and the development of sinus symptoms. Complications arenot limited to the above and may include others that are less common. PLAN: Extractions # 31 under LA with Oral sedation (1 mg of Ativan) -Notified patient that they have to come to appointment accompanied by someone over the legal age -Consent obtained at today's appointment -1 mg of Ativan Rx 'd to pharmacy of her choice Chaim Mooney DDS * Bg Jeong - 09/25/2024 1:55 PM EST Images from the original note were not included. PANO TAKEN AT PT DENTAL OFFICE documented in this [id number] Telephone encounter Note* Telephone Encounter - Brandy Pichardo MA - 07/30/2024 3:54 PM EDT Requested Prescriptions Pending Prescriptions Disp Refills dicyclomine (BENTYL) 20 mg tablet 90 tablet 2 Sig: Take one tablet by mouth three times daily as needed for abdominal cramping Brandy Pichardo CMA [facility]09-17-2024 Miscellaneous Notes* Telephone Encounter - Brandy Pichardo MA - 07/30/2024 3:54 PM EDT Requested Prescriptions Pending Prescriptions Disp Refills dicyclomine (BENTYL) 20 mg tablet 90 tablet 2 Sig: Take one tablet by mouth three times daily as needed for abdominal cramping Brandylucas Pichardo CMA documented in this encounterSycamore [facility] Center09-[facility]24 History of Present illness Narrative* Heidi Sanchez, LEAD INFRASTRUCTURE ARCHITECT.[facility] - 07/22/2024 1:59 PM EDT Telemedicine Visit - Distance Health Virtual Visit Note Patient seen on [employer] Video Visit platform. Location of patient: [place] Francesco Mandujano MD I have communicated my name and active licensure. The patient's identity and physical location wereverified at the time of this visit. Either the patient or their legal employee representative has been informed of the risks and benefits of -- and alternatives to -- treatment through a remote evaluation andconsents to proceed with the evaluation remotely. Cc: dental abscess History of Present Illness Lukasz Diaz is a 43 year old year old female who presents for the past 1 day(s) with symptoms that are: Worsening Reports lower gums are swollen in the front. Painful. When she flossed her teeth she noticed white stuff come out. The discharge had a foul odor. The site then bubbled Reports not able to get in to see her dentist until August. Review of Systems Constitutional: Negative for chills, diaphoresis and fever. HENT: Negative for sore throat. See hpi Respiratory: Negative for cough, shortness of breath, wheezing and stridor. Gastrointestinal: Negative for nausea and vomiting. PAST MEDICAL HISTORY 10/05/2010: Abnormal glandular Papanicolaou smear of cervix 05/03/2016: Controlled type 2 diabetes mellitus without complication, without long-term current use of insulin (HCC) 11/15/2016: Current use of proton pump inhibitor Comment: Mg checked 01/201701/18/2013: DUB (dysfunctional uterine bleeding) 06/05/2014: Dyslipidemia 06/10/2015: Elevated LFTs 03/27/2022: Erythrocytosis Comment: Seen Hematology 09/2018 with neg w/u 04/26/2016: Essential hypertension with goal blood pressure less than 130/85 06/13/2014: Fatty liver 06/10/2015: Gastroesophageal reflux disease without esophagitis Comment: Resolved. 01/02/2016: Generalized anxiety disorder 04/02/2019: Hypomagnesemia 08/23/2017: Large breasts Comment: Had breast reduction 02/16/2018 11/15/2016: Mild intermittent asthma without complication 11/15/2016: Moderate episode of recurrent major depressive disorder (HCC) 07/13/2017: Morbid obesity with body mass index (BMI) of 45.0 to 49.9 in adult (HCC) 08/23/2017: Muscle spasm No date: MVP (mitral valve prolapse) 08/23/2017: Neck pain on left side 07/13/2017: Obesity (BMI 30-39.9) 01/18/2013: PCOS (polycystic ovarian syndrome) 01/02/2016: PTSD (post-traumatic stress disorder) No date: Pulmonary HTN ([facility]) Comment: Seeing Dr. Campbell No date: Routine gynecological examination Comment: Sees Dr. Estrada 07/26/2019: Seronegative rheumatoid arthritis (HCC) Comment: Seeing [facility] 08/19/2020: Suicidal behavior with attempted self-injury ([facility]) Comment: 08/17/2020: overdose on muscle relaxors, Sent to inpatient unit [facility] 08/19/2020: Suicidal behavior with attempted self-injury ([facility]) Comment: 08/17/2020: overdose on muscle relaxors, Sent to inpatient unit [facility] 05/03/2016: Type 2 diabetes mellitus with hyperglycemia, without long- term current use of insulin ([facility]) 02/21/2019: Vitamin D deficiency PAST SURGICAL HISTORY 02/2015: *STRESS TEST PC Comment: NL 14y/o: APPENDECTOMY Comment: open case [id number]: CARPAL TUNNEL 02/14/2024: COLONOSCOPY Comment: normal colon 08/05/2015: COLONOSCOPY FLX DX W/COLLJ SPEC WHEN PFRMD Comment: Colonoscopy out pt [facility] 02/14/2024: EGD 08/05/2015: ESOPHAGOGASTRODUODENOSCOPY TRANSORAL DIAGNOSTIC Comment: EGD out pt [facility] No date: HYSTERECTOMY HX [id number]: LAPAROSCOPY SURG CHOLECYSTECTOMY Comment: Cholecystectomy, lap 02/2014: PAST SURGICAL HISTORY OF Comment: right meniscus repair 01/18/2017: PAST SURGICAL HISTORY OF Comment: right medial meniscal tear repair 02/2018: PAST SURGICAL HISTORY OF Comment: breast reduction surgery No date: PAST SURGICAL HISTORY OF; Right Comment: meniscus repair FAMILY HISTORY Problem Relation Age of Onset other (Parkinson) Mother Diabetes Father Coronary Artery Disease Father 51 other (crohns) Sister Breast Cancer Maternal Grandmother Heart Maternal Grandmother Diabetes Maternal Grandmother Colon Cancer Maternal Grandfather Heart Maternal Uncle Coronary Artery Disease Maternal Uncle first in late 30's Social History Tobacco Use Smoking status: Former Current packs/day: 0.00 Average packs/day: 0.5 packs/day for 10.0 years (5.0 ttl pk-yrs) Types: Cigarettes Start date: 09/20/2002 Quit date: 09/20/2012 Years since quittin.8 Smokeless tobacco: Never Tobacco comments: Father smoked in childhood home. Substance Use Topics Alcohol use: Not Currently Comment: 3-4 at time twice a year, mixed drinks Drug use: No Current Outpatient Medications Medication Sig clindamycin (CLEOCIN) 150 mg capsule Take 3 capsules by mouth three times a day for 5 days. ondansetron (ZOFRAN) 4 mg tablet Take 1 tablet by mouth once daily as needed for nausea/vomiting (for nausea.). JARDIANCE 10 mg tablet Take 1 tablet by mouth every afternoon. TRUE METRIX GLUCOSE METER as directed. promethazine (PHENERGAN) 25 mg tablet Take 1 tablet by mouth every 4 hours as needed for nausea/vomiting. nadolol (CORGARD) 40 mg tablet Take 1 tablet by mouth two times a day. dulaglutide (TRULICITY) 1.5 mg/0.5 mL pen injector Inject 1.5 mg subcutaneously one time a week. Inject once per week. Discard Pen After omeprazole (PRILOSEC) 40 mg capsule Take 1 capsule by mouth once daily. metFORMIN ER (GLUCOPHAGE XR) 500 mg 24 hr tablet Take 2 tablets by mouth two times a day. desvenlafaxine 100 mg Tb24 Take 1 Tablet By Oral Route 1 time per day mirtazapine (REMERON) 15 mg tablet Take 1 Tablet By Oral Route at bedtime. Insulin Weston, Disposable, (PEN NEEDLE) 29 gauge x 1/2 Use one needle per dose. one per day blood sugar diagnostic (BLOOD GLUCOSE TEST) test strip Test blood sugar(s) 2 times daily. Dx: Type 2 DM - Uncontrolled E11.65 Insulin: yes Lancets lancets Test blood sugar(s) 1 times daily. Dx: Type 2 DM - Uncontrolled E11.65 Insulin: No furosemide (LASIX) 20 mg tablet Take one tab by mouth as need when you have a 3 lb weight gain or more longer then two days. gabapentin (NEURONTIN) 600 mg tablet Take 1 tablet by mouth twice daily for 180 days. Per [facility] prazosin (MINIPRESS) 1 mg cap Take 3 caps AT BEDTIME for Anxiety No current facility-administered medications for this visit. Facility-Administered Medications Ordered in Other Visits Medication Dose Route Frequency lidocaine (PF) 10 mg/mL (1 %) 1-2 mg injection (XYLOCAINE) 0.1-0.2 mL INTRADERMAL PRN lactated ringers iv infusion 30 mL/hr INTRAVENOUS CONTINUOUS ALLERGIES Allergen Reactions Lamictal [Lamotrigi* Other: See Comments Made her suicidal Toradol [Ketorolac] Shortness of Breath Elevates BP; dyspnea Zoloft [Sertraline * Other: See Comments suicidal. Adhesive Other: See Comments Per pt not allergic to adhesive tape - its paper tape that she's allergic to Ibuprofen Unknown Naproxen Other: See Comments Psyllium Unknown Actos [Pioglitazone* Other: See Comments Sweats and chills Celexa [Citalopram] Intolerance Electrical shock feelings Eggs [Egg] GI Upset Fenofibrate GI Upset Lipitor [Atorvastat* Myalgia Plaquenil [Hydroxyc* Other: See Comments GI upset and pain Pravachol [Pravasta* GI Upset Zocor [Simvastatin] Myalgia Video Exam (Examination performed via Video enabled technology) Patient reported VS: none Physical Exam Constitutional: General: She is not in acute distress. Appearance: Normal appearance. She is not ill-appearing, toxic-appearing or diaphoretic. HENT: Mouth/Throat: Mouth: Mucous membranes are moist. Comments: There is erythema and mild gum swelling Lower gumline to the right of midline. No active bleeding or drainage seen No chipped or broken teeth in the area. Examination limited Pulmonary: Effort: Pulmonary effort is normal. No respiratory distress. Skin: Coloration: Skin is not pale. Neurological: Mental Status: She is alert and oriented to person, place, and time. ASSESSMENT/PLAN: 1. Pain, dental - ICD9: 525.9, ICD10: K08.89 Suspect dental abscess Start clindamycin Discussed with pt. If there is an abscess present antibiotic may not be enough to resolve the infection and dental procedure may be indicated. Recommend appt. With dentist as soon as possible. Pt. Appeared stable and in NAD - Red flags discussed for need for in person care - All questions answered Pt. Instructions: Call your dentist to see if you can get a sooner appointment and get on a waiting list. Contact your insurance company for a recommendation to a dentist in your area [place] suggestion is: [facility] [email or web address]&utm_medium=affiliate&utm_source=impact&[facility]_campaign=99598 8 Clindamycin as prescribed. Salt water gargles Tylenol for pain 500 mg every 4-6 hours as needed. Maximum 3000 mg per day (follow manufacturers directions for use. Ice packs 15 minutes at a time, several times a day. May use over the counter orajel or benzocaine for gum pain; follow directions on label for use. Avoid foods that will increase pain Follow up with your dentist as soon as possible. Seek a same day appointment with your dentist or at an emergency department if any of the followingoccur: High fever, increased pain, bleeding, pus, lump beneath the gums, inability to open mouth, difficulty swallowing, swelling under the tongue, fevers, chills, increased swelling/redness/warmth If you let us know who your primary care provider is, we will send them a notification of today's visit through our electronic medical records system. Since not all providers have access to our notifications, we strongly encourage you to share the following record of today's visit with your primarycare provider at your next visit. This will help in providing you the best care. If you do not have an established Primary Care physician and would like to continue care with a [facility] Virtual Primary Care physician, please ask your provider to place a Establish PrimaryCare order. Use [employer] to manage your care, wherever you are, 05/06, on your mobile device or computer. [employer] connects you to [employer] so you can access all your health information in one place and also schedule and request virtual appointments with primary care providers. documented in this encounterSycamore Medical Center09-09-2024 Instructions* Patient Instructions* Heidi Sanchez APRN.CNP - 07/22/2024 1:53 PM EDT Call your dentist to see if you can get a sooner appointment and get on a waiting list. Contact your insurance company for a recommendation to a different dentist in your area One suggestion to try is: [facility] [email or web address]&utm_medium=affiliate&utm_source=impact&[facility]_campaign=40366 8 Clindamycin as prescribed. Salt water gargles Tylenol for pain 500 mg every 4-6 hours as needed. Maximum 3000 mg per day (follow manufacturers directions for use. Ice packs 15 minutes at a time, several times a day. May use over the counter orajel or benzocaine for gum pain; follow directions on label for use. Avoid foods that will increase pain Follow up with your dentist as soon as possible. Seek a same day appointment with your dentist or at an emergency department if any of the followingoccur: High fever, increased pain, bleeding, pus, lump beneath the gums, inability to open mouth, difficulty swallowing, swelling under the tongue, fevers, chills, increased swelling/redness/warmth documented in this encounterSycamore Medical Center09-03-2024 Instructions* Patient Instructions* Arina Diana, JULIETTE - 07/16/2024 2:57 PM EDT Nutrition Intervention 07/16/2024: Modify type and amount of food consumed for meals and snacks: Recommendations for Celiac/Gluten Intolerance Read food packages and labels carefully. Avoid all foods that are made from or contain wheat, barley, and rye. Avoid: Barley, barley malt/extract, bulgur, couscous, durum, einkorn, emmer, farina, faro, tamra flour, kamut, matzo flour, orzo, panko, rye, seitan, semolina, spelt, triticale, udon, wheat, wheat bran, wheat germ and wheat starch. Take Caution: Ingredients that might contain gluten-containing grains: Brown rice syrup, flour or cereal products, modified food starch, hydrolyzed vegetable protein, hydrolyzed plant protein, textured vegetable protein, malt vinegar, rice malt, dextrin, maltodextrin, glucose syrup, caramel, soy sauce, and teriyaki sauce Choose gluten-free grains and starches: Amaranth, arrowroot, beans, black-eyed peas/lentils/split peas, buckwheat, cassava, corn, corn bran, flax, millet, hasa joni, gluten free bread, hominy, grits, rice grass, montina, nut flours, quinoa, poha flakes, potato, potato starch, potato flour,rice, sorghum, soy, tapioca, tef, wild rice. Choose healthy whole grain, enriched products that are gluten free such as brown rice or quinoa instead of white rice or corn flour. Shop the perimeter of the store. Most foods in this location are naturally gluten-free and nutritious such as: fruits, vegetables, meat, fish, poultry and dairy products. Consider using the following apps as discussed to help with food selections: Spoonful and Find Me Gluten Free Recommendations for Protein: Aim for 76 g protein/ day. This is based on 1.0 g protein/kg of ideal body weight. Good sources of protein are low fat dairy, beans/legumes, nuts/seeds. Refer to the Protein Food List provided for ideas. Add a protein source to your meals and snacks to help meet your daily needs. Refer to the Snack List provided for ideas. Adding a protein shake/supplement may help increase your intake. Brands to try include Premier Protein, Pure Protein, Muscle Milk, Fair Life, [employer] Protein and Greens, Orgain, [place], REYNALDO, Alonso documented in this encounterSycamore Medical Center09-03-2024 History of Present illness Narrative* Diana Santa RD - 07/16/2024 2:14 PM EDT [facility] Nutrition Therapy: Virtual Consult - Initial Assessment I have communicated my name and active licensure. The patient s identity and physical location wereverified at the time of this visit. Either the patient or their legal employee representative has been informed of the risks and benefits of -- and alternatives to -- treatment through a remote evaluation andconsents to proceed with the evaluation remotely. Nutrition Diagnosis: Altered Gastrointestinal Tract Function, related to, Celiac Disease, as evidenced by PMH . RECOMMENDED MALNUTRITION DIAGNOSIS: NO MALNUTRITION IDENTIFIED NUTRITION CARE PLAN Nutrition Intervention 07/16/2024: Modify type and amount of food consumed for meals and snacks: Recommendations for Celiac/Gluten Intolerance Read food packages and labels carefully. Avoid all foods that are made from or contain wheat, barley, and rye. Avoid: Barley, barley malt/extract, bulgur, couscous, durum, einkorn, emmer, farina, faro, tamra flour, kamut, matzo flour, orzo, panko, rye, seitan, semolina, spelt, triticale, udon, wheat, wheat bran, wheat germ and wheat starch. Take Caution: Ingredients that might contain gluten-containing grains: Brown rice syrup, flour or cereal products, modified food starch, hydrolyzed vegetable protein, hydrolyzed plant protein, textured vegetable protein, malt vinegar, rice malt, dextrin, maltodextrin, glucose syrup, caramel, soy sauce, and teriyaki sauce Choose gluten-free grains and starches: Amaranth, arrowroot, beans, black-eyed peas/lentils/split peas, buckwheat, cassava, corn, corn bran, flax, millet, hasa joni, gluten free bread, hominy, grits, rice grass, montina, nut flours, quinoa, poha flakes, potato, potato starch, potato flour,rice, sorghum, soy, tapioca, tef, wild rice. Choose healthy whole grain, enriched products that are gluten free such as brown rice or quinoa instead of white rice or corn flour. Shop the perimeter of the store. Most foods in this location are naturally gluten-free and nutritious such as: fruits, vegetables, meat, fish, poultry and dairy products. Consider using the following apps as discussed to help with food selections: Spoonful and Find Me Gluten Free Recommendations for Protein: Aim for 76 g protein/ day. This is based on 1.0 g protein/kg of ideal body weight. Good sources of protein are low fat dairy, beans/legumes, nuts/seeds. Refer to the Protein Food List provided for ideas. Add a protein source to your meals and snacks to help meet your daily needs. Refer to the Snack List provided for ideas. Adding a protein shake/supplement may help increase your intake. Brands to try include Premier Protein, Pure Protein, Muscle Milk, Fair Life, [employer] Protein and Zurdo King Aloha, OWYN, Olly Nutrition Monitoring & Evaluation: PO, weight status, activity, adherence to the above recommendations. Need for Follow up: prn Patient presents for a virtual initial nutrition consult. Ms Diaz is a very pleasant 43 yo femalewho has been diagnosed with celiac disease. We went over the dietary recommendations for disease management. She is also having issues with eating meat, and is reporting a GI response similar to her gluten response. The meats are gluten free but still causing an issue. We talked about eliminating meats all together and and getting her protein from the dairy group or from plant based protein sources. A list was provided. Due to time constraints of the appointment, a diet recall was not obtained. Nutrition related lab values reveal: (06/27/24) ALT 55 units/L ~ANL, BUN 5 mg/dL ~BNL, creatinine 0.49 mg/dL ~BNL, fasting glucose 179 mg/dL ~ANL Weight history reveals: Pt's weight is 238 lbs, BMI 35.15 ~ANL. 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 Resting Metabolic Rate: 1851 Malnutrition Screening Significant unintentional weight loss? No Eating less than 75% of usual intake for more than 2 weeks? No Potential Signs of Inflammation: no identifiable sources Education Materials Provided: Gluten Free Diet for Celiac Disease and High Protein Foods READINESS TO LEARN Cognitive ability: Alert and oriented Motivation to learn: Interested Family support: Unable to assess - Family not present Instruction provided to: Patient Patient learns best by: Multiple Methods Factors affecting learning: None Physical limitations affecting learning: None Referred by: Srinivas GAYLE Billing Type: Initial Assess/15 min 1 unit SIGNATURE: Diana Santa RD PATIENT NAME: Lukasz Diaz DATE: 07/16/2024 TIME: 2:14 PM documented in this encounterSycamore Medical Center09-03-2024 Telephone encounter Note * Telephone Encounter - Brandy Pichardo MA - 07/16/2024 9:22 AM EDT Patient phones requesting refills as follows: Requested Prescriptions Pending Prescriptions Disp Refills ondansetron (ZOFRAN) 4 mg tablet [Pharmacy Med Name: ondansetron HCl 4 mg tablet] 30 tablet 3 Sig: Take 1 tablet by mouth once daily as needed for nausea/vomiting (for nausea.). Brandy Pichardo CMA [facility]09-03-[facility]24 Miscellaneous Notes* Telephone Encounter - Brandy Pichardo MA - 07/16/2024 9:22 AM EDT Patient phones requesting refills as follows: Requested Prescriptions Pending Prescriptions Disp Refills ondansetron (ZOFRAN) 4 mg tablet [Pharmacy Med Name: ondansetron HCl 4 mg tablet] 30 tablet 3 Sig: Take 1 tablet by mouth once daily as needed for nausea/vomiting (for nausea.). Brandy Pichardo CMA documented in this encounterSycamore Medical Center08-15-2024 History of Present illness Narrative* Louise Espino MD - 06/27/2024 2:45 PM EDT CHIEF COMPLAINT: Patient presents with: Procedure Follow Up: EGD/Colonoscopy/lab review HPI Last OV was in Dec 2023. Lukasz Diaz is a 43 year old female here today for abdominal pain, diarrhea and bleeding. Hx of anxiety, PTSD , obesity, PCOS, DM. Found to have mild increase in intraepithelial lymphocytes on duodenal bx (Possible Calixto 1) + HLA-DQ2/8 +ve. Stool labs, EGD, colonoscopy and CTAP were otherwise negative. Current symptoms: She went on a gluten free diet and has been feeling much better. No more diarrhea. No abdominal pain or bloating. EGD and colonoscopy in February 2024 Impression: - The entire examined colon is normal. Biopsied. - The examined portion of the ileum was normal. Biopsied. Impression: - Z-line irregular, 40 cm from the incisors. - Normal esophagus. - Normal stomach. Biopsied. - Normal examined duodenum. Biopsied. Path A. Duodenum, biopsy: - Duodenal mucosa with mild patchy increase in intraepithelial lymphocytes with intact villous architecture. - See comment. B. Stomach, biopsy: - Antral type gastric mucosa with changes of mild chemical gastritis (reactive gastropathy). - No helicobacter organisms identified. C. Terminal ileum, biopsy: - Small bowel mucosa with no diagnostic abnormalities. D. Colon, right, biopsy: - Colonic mucosa with no diagnostic abnormalities. E. Colon, left, biopsy: - Colonic mucosa with no diagnostic abnormalities. Current Outpatient Medications Medication Sig promethazine (PHENERGAN) 25 mg tablet Take 1 tablet by mouth every 4 hours as needed for nausea/vomiting. dicyclomine (BENTYL) 20 mg tablet Take 1 tablet by mouth four times a day as needed for up to 7 days. ondansetron (ZOFRAN) 4 mg tablet Take 1 tablet by mouth once daily as needed for nausea/vomiting (for nausea.). nadolol (CORGARD) 40 mg tablet Take 1 tablet by mouth two times a day. dulaglutide (TRULICITY) 1.5 mg/0.5 mL pen injector Inject 1.5 mg subcutaneously one time a week. Inject once per week. Discard Pen After omeprazole (PRILOSEC) 40 mg capsule Take 1 capsule by mouth once daily. metFORMIN ER (GLUCOPHAGE XR) 500 mg 24 hr tablet Take 2 tablets by mouth two times a day. desvenlafaxine 100 mg Tb24 Take 1 Tablet By Oral Route 1 time per day mirtazapine (REMERON) 15 mg tablet Take 1 Tablet By Oral Route at bedtime. Insulin Weston, Disposable, (PEN NEEDLE) 29 gauge x 1/2 Use one needle per dose. one per day blood sugar diagnostic (BLOOD GLUCOSE TEST) test strip Test blood sugar(s) 2 times daily. Dx: Type 2 DM - Uncontrolled E11.65 Insulin: yes Lancets lancets Test blood sugar(s) 1 times daily. Dx: Type 2 DM - Uncontrolled E11.65 Insulin: No furosemide (LASIX) 20 mg tablet Take one tab by mouth as need when you have a 3 lb weight gain or more longer then two days. gabapentin (NEURONTIN) 600 mg tablet Take 1 tablet by mouth twice daily for 180 days. Per [facility] prazosin (MINIPRESS) 1 mg cap Take 3 caps AT BEDTIME for Anxiety No current facility-administered medications for this visit. Facility-Administered Medications Ordered in Other Visits Medication Dose Route Frequency lidocaine (PF) 10 mg/mL (1 %) 1-2 mg injection (XYLOCAINE) 0.1-0.2 mL INTRADERMAL PRN lactated ringers iv infusion 30 mL/hr INTRAVENOUS CONTINUOUS ALLERGIES Allergen Reactions Lamictal [Lamotrigi* Other: See Comments Made her suicidal Toradol [Ketorolac] Shortness of Breath Elevates BP; dyspnea Zoloft [Sertraline * Other: See Comments suicidal. Adhesive Other: See Comments Per pt not allergic to adhesive tape - its paper tape that she's allergic to Ibuprofen Unknown Naproxen Other: See Comments Psyllium Unknown Actos [Pioglitazone* Other: See Comments Sweats and chills Celexa [Citalopram] Intolerance Electrical shock feelings Eggs [Egg] GI Upset Fenofibrate GI Upset Lipitor [Atorvastat* Myalgia Plaquenil [Hydroxyc* Other: See Comments GI upset and pain Pravachol [Pravasta* GI Upset Zocor [Simvastatin] Myalgia Social History Tobacco Use Smoking status: Former Packs/day: 0.50 Years: 10.00 Additional pack years: 0.00 Total pack years: 5.00 Types: Cigarettes Quit date: 09/20/2012 Years since quittin.7 Smokeless tobacco: Never Tobacco comments: Father smoked in childhood home. Substance Use Topics Alcohol use: Not Currently Comment: 3-4 at time twice a year, mixed drinks Drug use: No PAST MEDICAL HISTORY 10/05/2010: Abnormal glandular Papanicolaou smear of cervix 05/03/2016: Controlled type 2 diabetes mellitus without complication, without long-term current use of insulin ([facility]) 11/15/2016: Current use of proton pump inhibitor Comment: Mg checked 01/201701/18/2013: DUB (dysfunctional uterine bleeding) 06/05/2014: Dyslipidemia 06/10/2015: Elevated LFTs 03/27/2022: Erythrocytosis Comment: Seen Hematology 09/2018 with neg w/u 04/26/2016: Essential hypertension with goal blood pressure less than 130/85 06/13/2014: Fatty liver 06/10/2015: Gastroesophageal reflux disease without esophagitis Comment: Resolved. 01/02/2016: Generalized anxiety disorder 04/02/2019: Hypomagnesemia 08/23/2017: Large breasts Comment: Had breast reduction 02/16/2018 11/15/2016: Mild intermittent asthma without complication 11/15/2016: Moderate episode of recurrent major depressive disorder (HCC) 07/13/2017: Morbid obesity with body mass index (BMI) of 45.0 to 49.9 in adult (HCC) 08/23/2017: Muscle spasm No date: MVP (mitral valve prolapse) 08/23/2017: Neck pain on left side 07/13/2017: Obesity (BMI 30-39.9) 01/18/2013: PCOS (polycystic ovarian syndrome) 01/02/2016: PTSD (post-traumatic stress disorder) No date: Pulmonary HTN ([facility]) Comment: Seeing Dr. Campbell No date: Routine gynecological examination Comment: Sees Dr. Estrada 07/26/2019: Seronegative rheumatoid arthritis (HCC) Comment: Seeing [facility] 08/19/2020: Suicidal behavior with attempted self-injury (HCC) Comment: 08/17/2020: overdose on muscle relaxors, Sent to inpatient unit [facility] 08/19/2020: Suicidal behavior with attempted self-injury (HCC) Comment: 08/17/2020: overdose on muscle relaxors, Sent to inpatient unit [facility] 05/03/2016: Type 2 diabetes mellitus with hyperglycemia, without long- term current use of insulin (HCC) 02/21/2019: Vitamin D deficiency PAST SURGICAL HISTORY 02/2015: *STRESS TEST PC Comment: NL 14y/o: APPENDECTOMY Comment: open case [id number]: CARPAL TUNNEL 02/14/2024: COLONOSCOPY Comment: normal colon 08/05/2015: COLONOSCOPY FLX DX W/COLLJ SPEC WHEN PFRMD Comment: Colonoscopy out pt [facility] 02/14/2024: EGD 08/05/2015: ESOPHAGOGASTRODUODENOSCOPY TRANSORAL DIAGNOSTIC Comment: EGD out pt [facility] No date: HYSTERECTOMY HX [id number]: LAPAROSCOPY SURG CHOLECYSTECTOMY Comment: Cholecystectomy, lap 02/2014: PAST SURGICAL HISTORY OF Comment: right meniscus repair 01/18/2017: PAST SURGICAL HISTORY OF Comment: right medial meniscal tear repair 02/2018: PAST SURGICAL HISTORY OF Comment: breast reduction surgery No date: PAST SURGICAL HISTORY OF; Right Comment: meniscus repair FAMILY HISTORY Problem Relation Age of Onset other (Parkinson) Mother Diabetes Father Coronary Artery Disease Father 51 other (crohns) Sister Breast Cancer Maternal Grandmother Heart Maternal Grandmother Diabetes Maternal Grandmother Colon Cancer Maternal Grandfather Heart Maternal Uncle Coronary Artery Disease Maternal Uncle first in late 30's REVIEW OF SYSTEMS Review of Systems PHYSICAL EXAM LMP 09/02/2015 Physical Exam HENT: Head: Atraumatic. Abdominal: General: There is no distension. Tenderness: There is no abdominal tenderness. Neurological: Mental Status: She is alert. ASSESSMENT: No diagnosis found. PLAN: 1. Celiac disease - Never had +ve anti ttGA IgA. - Path with increased IE lymph (Possible Calixto 1) + HLA-DQ2/8 +ve. - She did have elevated liver enzymes in the past, and has been feeling well on GFD. - Given those findings celiac disease is a possibility. - Cont GFD - Repeat liver enzymes. - Consult to nutrition. - CONSULT TO NUTRITION THERAPY; Future - FERRITIN; Future - TRANSGLUTAMINASE ABS; Future - GLIADIN (DEAMINATED) ABS; Future - COMPREHENSIVE METABOLIC PANEL; Future - COMPLETE BLOOD COUNT; Future Louise Espino MD DATE: 06/27/24 TIME: 8:05 AM documented in this encounterSy[facility]24 Instructions* Patient Instructions* Carmen Fuchs APRN.STEFANIE - 06/25/2024 2:41 PM EDT BRAT DIET (may eat any of the following as tolerated) Bananas Applesauce Fritch Saltine Crackers Animal Crackers Pretzels Oatmeal Unsweetened Dry Cereal (Rice Krispies, Cheerios) Plain Baked or Boiled Potato Plain White Rice Plain Noodles All clear liquid listed below CLEAR LIQUID DIET (need to drink 2 ounces total every half hour) Broth Jello Popsicles Pedialyte Gatorade NO Juices NO Milk NO Dairy Products documented in this encounterSycam[facility]08-13-2024 History of Present illness Narrative* Carmen Fuchs APRN.STEFANIE - 06/25/2024 2:24 PM EDT Images from the original note were not included. June 25, 2024 Lukasz Diaz 1980 VIRTUAL VISIT PROGRESS NOTE This is a virtual visit. It required patient-provider interaction for the medical decision making as documented below. Informed verbal consent was obtained from this patient to communicate and provide care using virtual and other telecommunications tools. This patient has been explained the risks related to unauthorized disclosure or interception of personal health information and steps they can take to help protect their information. We have discussed that care provided through video or audio communication cannot replace the need for physical examination or an in person visit for some disorders or urgent problems and patient understands the need to seek urgent care in an Emergency Department as necessary. I have communicated my name and active licensure. The patient's identity and physical location wereverified at the time of this visit. Either the patient or their legal employee representative has been informed of the risks and benefits of -- and alternatives to -- treatment through a remote evaluation andconsents to proceed with the evaluation remotely. Platform patient seen on: [employer] Video Visit platform Location of patient: [place] Lukasz Diaz is a 43 year old female seen for Patient presents with: Nausea Lukasz Diaz is a 43 year old female who complains of Abdominal pain Duration for1 day(s), time course fluctuating, ,location RUQ and generalized,radiation none, quality cramping ,intensity moderate, ,aggrevating factors include none and bowel movement ,alleviating factors none Diarrhea 1 day(s), stool frequency 6 per day ., Stool characteristics watery, mucusy Nausea. Patient also has rash on bilateral lower legs with little red dots, no itching, no pain Patient denies: blood in stool, recent foreign travel, recent camping, unintended weight loss, fevers, and recent antibiotic usage Treatment has included: Imodium AD HISTORY REVIEWED (electronic chart updated): PAST MEDICAL HISTORY 10/05/2010: Abnormal glandular Papanicolaou smear of cervix 05/03/2016: Controlled type 2 diabetes mellitus without complication, without long-term current use of insulin ([facility]) 11/15/2016: Current use of proton pump inhibitor Comment: Mg checked 01/201701/18/2013: DUB (dysfunctional uterine bleeding) 06/05/2014: Dyslipidemia 06/10/2015: Elevated LFTs 03/27/2022: Erythrocytosis Comment: Seen Hematology 09/2018 with neg w/u 04/26/2016: Essential hypertension with goal blood pressure less than 130/85 06/13/2014: Fatty liver 06/10/2015: Gastroesophageal reflux disease without esophagitis Comment: Resolved. 01/02/2016: Generalized anxiety disorder 04/02/2019: Hypomagnesemia 08/23/2017: Large breasts Comment: Had breast reduction 02/16/2018 11/15/2016: Mild intermittent asthma without complication 11/15/2016: Moderate episode of recurrent major depressive disorder (HCC) 07/13/2017: Morbid obesity with body mass index (BMI) of 45.0 to 49.9 in adult (HCC) 08/23/2017: Muscle spasm No date: MVP (mitral valve prolapse) 08/23/2017: Neck pain on left side 07/13/2017: Obesity (BMI 30-39.9) 01/18/2013: PCOS (polycystic ovarian syndrome) 01/02/2016: PTSD (post-traumatic stress disorder) No date: Pulmonary HTN (HCC) Comment: Seeing Dr. Campbell No date: Routine gynecological examination Comment: Sees Dr. Estrada 07/26/2019: Seronegative rheumatoid arthritis (HCC) Comment: Seeing [facility] 08/19/2020: Suicidal behavior with attempted self-injury ([facility]) Comment: 08/17/2020: overdose on muscle relaxors, Sent to inpatient unit [facility] 08/19/2020: Suicidal behavior with attempted self-injury ([facility]) Comment: 08/17/2020: overdose on muscle relaxors, Sent to inpatient unit [facility] 05/03/2016: Type 2 diabetes mellitus with hyperglycemia, without long- term current use of insulin ([facility]) 02/21/2019: Vitamin D deficiency PAST SURGICAL HISTORY 02/2015: *STRESS TEST PC Comment: NL 14y/o: APPENDECTOMY Comment: open case [id number]: CARPAL TUNNEL 02/14/2024: COLONOSCOPY Comment: normal colon 08/05/2015: COLONOSCOPY FLX DX W/COLLJ SPEC WHEN PFRMD Comment: Colonoscopy out pt [facility] 08/05/2015: ESOPHAGOGASTRODUODENOSCOPY TRANSORAL DIAGNOSTIC Comment: EGD out pt [facility] No date: HYSTERECTOMY HX [id number]: LAPAROSCOPY SURG CHOLECYSTECTOMY Comment: Cholecystectomy, lap 02/2014: PAST SURGICAL HISTORY OF Comment: right meniscus repair 01/18/2017: PAST SURGICAL HISTORY OF Comment: right medial meniscal tear repair 02/2018: PAST SURGICAL HISTORY OF Comment: breast reduction surgery No date: PAST SURGICAL HISTORY OF; Right Comment: meniscus repair FAMILY HISTORY Problem Relation Age of Onset other (Parkinson) Mother Diabetes Father Coronary Artery Disease Father 51 other (crohns) Sister Breast Cancer Maternal Grandmother Heart Maternal Grandmother Diabetes Maternal Grandmother Colon Cancer Maternal Grandfather Heart Maternal Uncle Coronary Artery Disease Maternal Uncle first in late 30's Social History Tobacco Use Smoking status: Former Packs/day: 0.50 Years: 10.00 Additional pack years: 0.00 Total pack years: 5.00 Types: Cigarettes Quit date: 09/20/2012 Years since quittin.7 Smokeless tobacco: Never Tobacco comments: Father smoked in childhood home. Substance Use Topics Alcohol use: Not Currently Comment: 3-4 at time twice a year, mixed drinks Drug use: No Current Outpatient Medications Medication Sig promethazine (PHENERGAN) 25 mg tablet Take 1 tablet by mouth every 4 hours as needed for nausea/vomiting. dicyclomine (BENTYL) 20 mg tablet Take 1 tablet by mouth four times a day as needed for up to 7 days. ondansetron (ZOFRAN) 4 mg tablet Take 1 tablet by mouth once daily as needed for nausea/vomiting (for nausea.). nadolol (CORGARD) 40 mg tablet Take 1 tablet by mouth two times a day. dulaglutide (TRULICITY) 1.5 mg/0.5 mL pen injector Inject 1.5 mg subcutaneously one time a week. Inject once per week. Discard Pen After omeprazole (PRILOSEC) 40 mg capsule Take 1 capsule by mouth once daily. metFORMIN ER (GLUCOPHAGE XR) 500 mg 24 hr tablet Take 2 tablets by mouth two times a day. desvenlafaxine 100 mg Tb24 Take 1 Tablet By Oral Route 1 time per day mirtazapine (REMERON) 15 mg tablet Take 1 Tablet By Oral Route at bedtime. Insulin Weston, Disposable, (PEN NEEDLE) 29 gauge x 1/2 Use one needle per dose. one per day blood sugar diagnostic (BLOOD GLUCOSE TEST) test strip Test blood sugar(s) 2 times daily. Dx: Type 2 DM - Uncontrolled E11.65 Insulin: yes Lancets lancets Test blood sugar(s) 1 times daily. Dx: Type 2 DM - Uncontrolled E11.65 Insulin: No furosemide (LASIX) 20 mg tablet Take one tab by mouth as need when you have a 3 lb weight gain or more longer then two days. gabapentin (NEURONTIN) 600 mg tablet Take 1 tablet by mouth twice daily for 180 days. Per [facility] prazosin (MINIPRESS) 1 mg cap Take 3 caps AT BEDTIME for Anxiety No current facility-administered medications for this visit. Facility-Administered Medications Ordered in Other Visits Medication Dose Route Frequency lidocaine (PF) 10 mg/mL (1 %) 1-2 mg injection (XYLOCAINE) 0.1-0.2 mL INTRADERMAL PRN lactated ringers iv infusion 30 mL/hr INTRAVENOUS CONTINUOUS ALLERGIES Allergen Reactions Lamictal [Lamotrigi* Other: See Comments Made her suicidal Toradol [Ketorolac] Shortness of Breath Elevates BP; dyspnea Zoloft [Sertraline * Other: See Comments suicidal. Adhesive Other: See Comments Per pt not allergic to adhesive tape - its paper tape that she's allergic to Ibuprofen Unknown Naproxen Other: See Comments Psyllium Unknown Actos [Pioglitazone* Other: See Comments Sweats and chills Celexa [Citalopram] Intolerance Electrical shock feelings Eggs [Egg] GI Upset Fenofibrate GI Upset Lipitor [Atorvastat* Myalgia Plaquenil [Hydroxyc* Other: See Comments GI upset and pain Pravachol [Pravasta* GI Upset Zocor [Simvastatin] Myalgia REVIEW OF SYSTEMS: Review of Systems Constitutional: Positive for activity change, appetite change and fatigue. Negative for chills, diaphoresis, fever and unexpected weight change. Eyes: Negative for visual disturbance. Respiratory: Negative for apnea, cough, choking, chest tightness, shortness of breath, wheezing andstridor. Cardiovascular: Negative for chest pain, palpitations and leg swelling. Gastrointestinal: Positive for abdominal pain, diarrhea and nausea. Negative for abdominal distention, anal bleeding, blood in stool, constipation, rectal pain and vomiting. Endocrine: Negative for cold intolerance, heat intolerance, polydipsia, polyphagia and polyuria. Skin: Positive for rash. Negative for color change and wound. Psychiatric/Behavioral: Negative. PHYSICAL EXAMINATION: VIDEO EXAM: (performed via video enabled technology) GENERAL: alert and appropriate, in no distress, well-hydrated, well nourished, happy, smiling, interactive, and appears tired SKIN: no rash noted, patient states that there are red spots on legs, was unable to visualize online. Possible irritated hair follicles noted. HEAD: normocephalic, no abnormality or lesion noted RESPIRATORY: breathing non-labored ABDOMEN: soft and non-tender NEUROLOGIC: no obvious deficit ASSESSMENT: (K52.9) Gastroenteritis (primary encounter diagnosis) PLAN: Encounter Diagnosis ICD-10-CM 1. Gastroenteritis K52.9 promethazine (PHENERGAN) 25 mg tablet dicyclomine (BENTYL) 20 mg tablet Return in about 3 days (around 06/28/2024) for recheck with PCP. Patient Instructions BRAT DIET (may eat any of the following as tolerated) Bananas Applesauce Fritch Saltine Crackers Animal Crackers Pretzels Oatmeal Unsweetened Dry Cereal (Rice Krispies, Cheerios) Plain Baked or Boiled Potato Plain White Rice Plain Noodles All clear liquid listed below CLEAR LIQUID DIET (need to drink 2 ounces total every half hour) Broth Jello Popsicles Pedialyte Gatorade NO Juices NO Milk NO Dairy Products Medical Decision Making: Problems: Low: Acute, uncomplicated illness or injury Risk: Low: Low risk from testing/treatment Medical Decision Making Level: 3 - Low -I have reviewed and updated with the patient: allergies, VS, current medications, Past Medical History,Past Surgical History,Past Family Medical History, Past Social History. - Patient education provided today. - Discussed with patient medications that are indicated and how to use the medications and what thepotential side effects are. - Follow up with PCP in 2-3 days if symptoms progress - Warning signs of worsening condition explained to patient, Red flags discussed - Patient in stable condition after questions answered and patient verbalizes understanding - Report to ED with any worsening symptoms or life-threatening concerns Carmen Mckinley APRN.CNP If you let us know who your primary care provider is, we will send them a notification of today s visit through our electronic medical records system. Since not all providers have access to our notifications, we strongly encourage you to share the following record of today s visit with your primarycare provider at your next visit. This will help in providing you the best care. If you do not have an established Primary Care physician and would like to continue care with a [facility] Virtual Primary Care physician, please ask your provider to place a Establish PrimaryCare order. Use [facility] to manage your care, wherever you are, 05/06, on your mobile device or computer. [facility] you to [facility] so you can access all your health information in one place and also schedule and request virtual appointments with primary care providers. documented in this encounterSycamore [facility] Center07-23-2024 Instructions* Patient Instructions* Amanda Cortes APRN.CNP - 06/04/2024 11:16 AM EDT SHINGLES Shingles (Herpes Zoster) What is shingles? Shingles is an infection caused by the same virus that causes chickenpox. This virus is called varicella zoster. You cannot develop shingles unless you have had a previous infection of chickenpox (usually as a child). Shingles is also called herpes zoster. This infection is most common in people over 60 years of age, but young people can have it as well. How does it occur? After you recover from chickenpox, the chickenpox virus is not destroyed. It moves back to the roots of your nerve cells (near the spinal cord) and becomes inactive (dormant). Later, if the virus is reactivated, the symptoms are called shingles. What exactly causes the reactivation of the virus is not known. A weakened immune system seems to allow reactivation of the virus. Advancing age and chronic use of cortisone-type drugs may trigger shingles. The virus may also become active again after the skin is injured or sunburned. Emotional stress seems to be a common trigger as well. What are the symptoms? The first sign of shingles is often burning, sharp pain, tingling, or numbness in or under your skin on one side of your body or face. The most common site is the back or upper abdomen. You may have severe itching or aching. You also may feel tired and ill with fever, chills, headache, and upset stomach. After several days, you will notice a rash of small, clear, fluid-filled blisters on reddenedskin. Within 3 days after they appear, the blisters will turn yellow, then dry and crust over. Overthe next 2 weeks the crusts will drop off, sometimes leaving small, pitted scars. Because they tendto follow nerve paths, the blisters are usually found in a line, often extending from the back or flank around to the abdomen, just on one side. Shingles usually doesn't cross the midline of the body. (The word shingles comes from the Latin word for belt or girdle.) The rash also may appear on one side of your face. Some people have painful eye inflammations and infections. Is shingles contagious? You can't get shingles from someone else, but you may get chickenpox from contact with shingles blisters if you have not had chickenpox before. The shingles virus is in the blister fluid. The virus can spread by direct contact with a blister. It can also be spread by indirect contact, for example, if you use a washcloth that has blister fluid on it. If you have shingles, avoid contact with infants, children, women, and adults who have never had chickenpox or the chickenpox shot until your blisters are completely dry. How is shingles diagnosed? Your health care provider will ask about your symptoms and examine you. Your provider may order labtests to look for the virus in fluid from a blister. How is it treated? It is best to start treatment within 24 to 48 hours after symptoms start. Your health care providermay prescribe: -an antiviral drug, such as acyclovir, to speed recovery and lessen the chance of prolonged symptoms from nerve inflammation -painkillers for more serious discomfort if nonprescription painkillers are not helping enough -antibacterial salves or lotions to help prevent bacterial infection of the blisters -capsaicin cream for pain How long will the effects last? The rash from shingles will heal in 1 to 2 weeks and the pain or irritation will usually disappear within 3 to 5 weeks. If the virus damages a nerve, you may have pain, numbness, or tingling for months or even years after the rash is healed. This is a condition called postherpetic neuralgia. It is most likely to occurafter a shingles outbreaks in people over 50 years old. Antiviral medicine prescribed at the time the shingles is diagnosed and taken for 7 days can help prevent this problem. How can I take care of myself? -Take a pain relief medicine such as acetaminophen. Take other medicine as prescribed by your health care provider. -Put a cool compress on the rash (such as a cool, moist washcloth). -Rest in bed during the early stages if you have fever and other symptoms. -Try to avoid having clothing or bed linens rubbing against the rash, which might irritate it. Call your health care provider if: -You develop worsening pain or fever. -The blisters show signs of bacterial infection, such as increasing pain or redness, or milky yellow drainage from the blister sites. -The blisters are close to the eyes. How can I help prevent shingles? -If you have never had chickenpox, you can get a shot to help prevent infection with the chickenpoxvirus. -You can protect your immune system and lessen your chances of getting shingles by trying to keep your stress under control documented in this [facility] History of Present illness Narrative* Amanda Cortes APRN.STEFANIE - 06/04/2024 11:04 AM EDT Telemedicine Visit - Distance Health Virtual Visit Note Patient seen on [employer] Video Visit platform. Location of patient: [place] I have communicated my name and active licensure. The patient's identity and physical location wereverified at the time of this visit. Either the patient or their legal employee representative has been informed of the risks and benefits of -- and alternatives to -- treatment through a remote evaluation andconsents to proceed with the evaluation remotely. History of Present Illness Lukasz Diaz is a 43 year old female presenting with a rash. History was obtained from: patient The rash is on the face for the past 5 day(s) and is gradually worsening. Patient was started on Valtrex on 05/30/2024, 1g three times daily for 7 days, and has been taking as prescribed. Patient is concerned as rash is not improving yet. The rash is described as painful. The prior dermatologic history includes similar rash in past (shingles in March 2024). The patient also complains of no other pertinent symptoms. The patient denies headache, fever, shortness of breath, chest pain, abdominal pain. The patient has been keeping clean and dry, taking Valtrex as prescribed. Patient denies current or . PAST MEDICAL HISTORY Diagnosis Date Abnormal glandular Papanicolaou smear of cervix 10/05/2010 Controlled type 2 diabetes mellitus without complication, without long-term current use of insulin (HCC) 05/03/2016 Current use of proton pump inhibitor 11/15/2016 Mg checked 01/2017 DUB (dysfunctional uterine bleeding) 01/18/2013 Dyslipidemia 06/05/2014 Elevated LFTs 06/10/2015 Erythrocytosis 03/27/2022 Seen Hematology 09/2018 with neg w/u Essential hypertension with goal blood pressure less than 130/85 04/26/2016 Fatty liver 06/13/2014 Gastroesophageal reflux disease without esophagitis 06/10/2015 Resolved. Generalized anxiety disorder 01/02/2016 Hypomagnesemia 04/02/2019 Large breasts 08/23/2017 Had breast reduction 02/16/2018 Mild intermittent asthma without complication 11/15/2016 Moderate episode of recurrent major depressive disorder (HCC) 11/15/2016 Morbid obesity with body mass index (BMI) of 45.0 to 49.9 in adult (HCC) 07/13/2017 Muscle spasm 08/23/2017 MVP (mitral valve prolapse) Neck pain on left side 08/23/2017 Obesity (BMI 30-39.9) 07/13/2017 PCOS (polycystic ovarian syndrome) 01/18/2013 PTSD (post-traumatic stress disorder) 01/02/2016 Pulmonary HTN ([facility]) Seeing Dr. Campbell Routine gynecological examination Sees Dr. Estrada Seronegative rheumatoid arthritis ([facility]) 07/26/2019 Seeing [facility] Suicidal behavior with attempted self-injury ([facility]) 08/19/2020 08/17/2020: overdose on muscle relaxors, Sent to inpatient unit [facility] Suicidal behavior with attempted self-injury ([facility]) 08/19/2020 08/17/2020: overdose on muscle relaxors, Sent to inpatient unit [facility] Type 2 diabetes mellitus with hyperglycemia, without long-term current use of insulin ([facility]) 05/03/2016 Vitamin D deficiency 02/21/2019 PAST SURGICAL HISTORY Procedure Laterality Date *STRESS TEST PC 02/2015 NL APPENDECTOMY 14y/o open case CARPAL TUNNEL [id number] COLONOSCOPY 02/14/2024 normal colon COLONOSCOPY FLX DX W/COLLJ SPEC WHEN PFRMD 08/05/2015 Colonoscopy out pt [facility] ESOPHAGOGASTRODUODENOSCOPY TRANSORAL DIAGNOSTIC 08/05/2015 EGD out pt [facility] HYSTERECTOMY HX LAPAROSCOPY SURG CHOLECYSTECTOMY [id number] Cholecystectomy, lap PAST SURGICAL HISTORY OF 02/2014 right meniscus repair PAST SURGICAL HISTORY OF 01/18/2017 right medial meniscal tear repair PAST SURGICAL HISTORY OF 02/2018 breast reduction surgery PAST SURGICAL HISTORY OF Right meniscus repair FAMILY HISTORY Problem Relation Age of Onset other (Parkinson) Mother Diabetes Father Coronary Artery Disease Father 51 other (crohns) Sister Breast Cancer Maternal Grandmother Heart Maternal Grandmother Diabetes Maternal Grandmother Colon Cancer Maternal Grandfather Heart Maternal Uncle Coronary Artery Disease Maternal Uncle first in late 30's Social History Tobacco Use Smoking status: Former Packs/day: 0.50 Years: 10.00 Additional pack years: 0.00 Total pack years: 5.00 Types: Cigarettes Quit date: 09/20/2012 Years since quittin.7 Smokeless tobacco: Never Tobacco comments: Father smoked in childhood home. Substance Use Topics Alcohol use: Not Currently Comment: 3-4 at time twice a year, mixed drinks Drug use: No ALLERGIES Allergen Reactions Lamictal [Lamotrigi* Other: See Comments Made her suicidal Toradol [Ketorolac] Shortness of Breath Elevates BP; dyspnea Zoloft [Sertraline * Other: See Comments suicidal. Adhesive Other: See Comments Per pt not allergic to adhesive tape - its paper tape that she's allergic to Ibuprofen Unknown Naproxen Other: See Comments Psyllium Unknown Actos [Pioglitazone* Other: See Comments Sweats and chills Celexa [Citalopram] Intolerance Electrical shock feelings Eggs [Egg] GI Upset Fenofibrate GI Upset Lipitor [Atorvastat* Myalgia Plaquenil [Hydroxyc* Other: See Comments GI upset and pain Pravachol [Pravasta* GI Upset Zocor [Simvastatin] Myalgia ondansetron (ZOFRAN) 4 mg tablet^Take 1 tablet by mouth once daily as needed for nausea/vomiting (for nausea.).^Disp: 30 tablet^Rfl: 3 nadolol (CORGARD) 40 mg tablet^Take 1 tablet by mouth two times a day.^Disp: 60 tablet^Rfl: 5 promethazine (PHENERGAN) 12.5 mg tablet^Take 1 tablet by mouth every 6 hours as needed.^Disp: 30 tablet^Rfl: 0 dulaglutide (TRULICITY) 1.5 mg/0.5 mL pen injector^Inject 1.5 mg subcutaneously one time a week. Inject once per week. Discard Pen After^Disp: 4 Each^Rfl: 5 omeprazole (PRILOSEC) 40 mg capsule^Take 1 capsule by mouth once daily.^Disp: 30 capsule^Rfl: 3 metFORMIN ER (GLUCOPHAGE XR) 500 mg 24 hr tablet^Take 2 tablets by mouth two times a day.^Disp: 120tablet^Rfl: 3 desvenlafaxine 100 mg Tb24^Take 1 Tablet By Oral Route 1 time per day^Disp: ^Rfl: mirtazapine (REMERON) 15 mg tablet^Take 1 Tablet By Oral Route at bedtime.^Disp: ^Rfl: Insulin Weston, Disposable, (PEN NEEDLE) 29 gauge x 1/2^Use one needle per dose. one per day^Disp: 100 Each^Rfl: 11 blood sugar diagnostic (BLOOD GLUCOSE TEST) test strip^Test blood sugar(s) 2 times daily. Dx: Type 2 DM - Uncontrolled E11.65 Insulin: yes^Disp: 70 Strip^Rfl: 11 Lancets lancets^Test blood sugar(s) 1 times daily. Dx: Type 2 DM - Uncontrolled E11.65 Insulin: No^Disp: 100 Each^Rfl: 11 furosemide (LASIX) 20 mg tablet^Take one tab by mouth as need when you have a 3 lb weight gain or more longer then two days.^Disp: 30 tablet^Rfl: 5 gabapentin (NEURONTIN) 600 mg tablet^Take 1 tablet by mouth twice daily for 180 days. Per [facility]^Disp: ^Rfl: prazosin (MINIPRESS) 1 mg cap^Take 3 caps AT BEDTIME for Anxiety^Disp: ^Rfl: Video Exam (Examination performed via Video enabled technology - briefly due to poor quality, visitcompleted via telephone) General appearance: Alert, oriented, pleasant, in NAD :Yes Ill appearing :No Lethargic appearing :No Respiratory distress :No Skin: left lower cheek with two vesicular lesions noted; no drainage or streaking; ASSESSMENT/PLAN: 1. Herpes zoster without complication - ICD9: 053.9, ICD10: B02.9 - Continue treatment with valacyclovir as previously prescribed - Advised on contagiousness and skin care - Advised to not scratch and break the skin; keep area clean and dry - May use cool compresses as needed - Follow up with PCP (or available in-person care) in 10 days if symptoms persist or sooner if symptoms worsen - Red flags discussed for immediate in person care - All questions answered Amanda Cortes APRN.MAT MAN documented in this encounterSy[facility]05-30-[facility]24 Telephone encounter Note * Telephone Encounter - Bj Hoyos - 04/11/2024 12:45 PM EDT Patient submitted online appointment request, akosau to c/b. Ok to schedule with any provider taking NPif patient calls back. FirstName : Lukasz LastName : Joe Pronouns : PronounsOther : Email : [email or web address] Phone : [phone] Birthdate : 1980 12:00:00 AM BestTimeToCallBack : Anytime AppointmentDate : Earliest convenience PhysicianRequested : Addi Symptoms : Just want to get established as a patient OptIn : False [phone] Miscellaneous Notes* Telephone Encounter - Bj Hoyos - 04/11/2024 12:45 PM EDT Patient submitted online appointment request, akosua to c/b. Ok to schedule with any provider taking NPif patient calls back. FirstName : Lukasz LastName : Joe Pronouns : PronounsOther : Email : [email or web address] Phone : [phone] Birthdate : 1980 12:00:00 AM BestTimeToCallBack : Anytime AppointmentDate : Earliest convenience PhysicianRequested : Addi Symptoms : Just want to get established as a patient OptIn : False documented in this [facility]05-23-2024 Telephone encounter Note* Telephone Encounter - Louise Espino MD - 04/04/2024 3:29 PM EDT Zofran sent. Celiac antibodies negative. Mild increased intraepithelial lymphocytes - possibly [place] 1. Celiac genotype ordered. [facility] Miscellaneous Notes* Telephone Encounter - Louise Espino MD - 04/04/2024 3:29 PM EDT Zofran sent. Celiac antibodies negative. Mild increased intraepithelial lymphocytes - possibly [place] 1. Celiac genotype ordered. 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 Ventura Koenig LPN is placing letter in Medical Records for Pt to berry picker machine operator. 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 Ventura Koenig LPN is placing letter in Medical Records for Pt to berry picker machine operator. * Telephone Encounter - Oumou Posey APRN.CNP - 03/26/2024 6:52 PM EDT Note printed. Oumou Posey APRN.MAT MAN * Telephone Encounter - Selma Vazquez RN - 03/26/2024 2:52 PM EDT Patient calling in and was seen by Oumou Posey CNP today. Patient asking if Oumou would write a letter for her to be off of work today and tomorrow. Patient states her employer is giving her a hard time about returning to work with shingles. 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 Please call patient at [phone]. Thank you. documented in this encounterSy[facility] Center05-14-2024 Telephone encounter Note * Telephone Encounter - Oumou Posey APRN.CNP - 03/26/2024 6:52 PM EDT Note printed. Oumou Posey APRN.CNP [facility]05-[facility] Telephone encounter Note* Telephone Encounter - Selma Vazquez RN - 03/26/2024 2:52 PM EDT Patient calling in and was seen by Oumou Posey CNP today. Patient asking if Oumou would write a letter for her to be off of work today and tomorrow. Patient states her employer is giving her a hard time about returning to work with shingles. 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 Please call patient at [phone]. Thank you. [facility]05-14-[facility] Instructions* Patient Instructions* Oumou Posey APRN.CNP - 03/26/2024 1:52 PM EDT Start the valtrex. Let us know if no better/worsening. documented in this encounterSycamore [facility] Center05-14-2024 History of Present illness Narrative* Oumou Posey APRN.CNP - 03/26/2024 1:44 PM EDT This is a 43 year old female who presents today with: Patient presents with: Shingles HISTORY OF PRESENT ILLNESS: Lukasz Diaz is a 43 year old female. Patient presents with: Shingles Found a rash last night on her left side that appears similar to when she had shingles in the past. Feels like skin crawling. Refers that she had shingles in the past and it was bilateral in nature. Was treated for shingles. No further incidence since that time. No recent sickness. PAST MEDICAL HISTORY: PAST MEDICAL HISTORY Diagnosis Date Abnormal glandular Papanicolaou smear of cervix 10/05/2010 Controlled type 2 diabetes mellitus without complication, without long-term current use of insulin ([facility]) 05/03/2016 Current use of proton pump inhibitor 11/15/2016 Mg checked 01/2017 DUB (dysfunctional uterine bleeding) 01/18/2013 Dyslipidemia 06/05/2014 Elevated LFTs 06/10/2015 Erythrocytosis 03/27/2022 Seen Hematology 09/2018 with neg w/u Essential hypertension with goal blood pressure less than 130/85 04/26/2016 Fatty liver 06/13/2014 Gastroesophageal reflux disease without esophagitis 06/10/2015 Resolved. Generalized anxiety disorder 01/02/2016 Hypomagnesemia 04/02/2019 Large breasts 08/23/2017 Had breast reduction 02/16/2018 Mild intermittent asthma without complication 11/15/2016 Moderate episode of recurrent major depressive disorder ([facility]) 11/15/2016 Morbid obesity with body mass index (BMI) of 45.0 to 49.9 in adult ([facility]) 07/13/2017 Muscle spasm 08/23/2017 MVP (mitral valve prolapse) Neck pain on left side 08/23/2017 Obesity (BMI 30-39.9) 07/13/2017 PCOS (polycystic ovarian syndrome) 01/18/2013 PTSD (post-traumatic stress disorder) 01/02/2016 Pulmonary HTN ([facility]) Seeing Dr. Campbell Routine gynecological examination Sees Dr. Estrada Seronegative rheumatoid arthritis ([facility]) 07/26/2019 Seeing [facility] Suicidal behavior with attempted self-injury ([facility]) 08/19/2020 08/17/2020: overdose on muscle relaxors, Sent to inpatient unit [facility] Suicidal behavior with attempted self-injury ([facility]) 08/19/2020 08/17/2020: overdose on muscle relaxors, Sent to inpatient unit [facility] Type 2 diabetes mellitus with hyperglycemia, without long-term current use of insulin ([facility]) 05/03/2016 Vitamin D deficiency 02/21/2019 PAST SURGICAL HISTORY Procedure Laterality Date *STRESS TEST PC 02/2015 NL APPENDECTOMY 14y/o open case CARPAL TUNNEL [id number] COLONOSCOPY 02/14/2024 normal colon COLONOSCOPY FLX DX W/COLLJ SPEC WHEN PFRMD 08/05/2015 Colonoscopy out pt [facility] ESOPHAGOGASTRODUODENOSCOPY TRANSORAL DIAGNOSTIC 08/05/2015 EGD out pt [facility] HYSTERECTOMY HX LAPAROSCOPY SURG CHOLECYSTECTOMY [id number] Cholecystectomy, lap PAST SURGICAL HISTORY OF 02/2014 right meniscus repair PAST SURGICAL HISTORY OF 01/18/2017 right medial meniscal tear repair PAST SURGICAL HISTORY OF 02/2018 breast reduction surgery PAST SURGICAL HISTORY OF Right meniscus repair ALLERGIES Lamictal [Lamotrigine], Toradol [Ketorolac], Zoloft [Sertraline Hcl], Adhesive, Ibuprofen, Naproxen, Psyllium, Actos [Pioglitazone Hcl], Celexa [Citalopram], Eggs [Egg], Fenofibrate, Lipitor [Atorvastatin], Plaquenil [Hydroxychloroquine], Pravachol [Pravastatin Sodium], and Zocor [Simvastatin] MEDICATIONS Current Outpatient Medications Medication Sig nadolol (CORGARD) 40 mg tablet Take 1 tablet by mouth two times a day. promethazine (PHENERGAN) 12.5 mg tablet Take 1 tablet by mouth every 6 hours as needed. dulaglutide (TRULICITY) 1.5 mg/0.5 mL pen injector Inject 1.5 mg subcutaneously one time a week. Inject once per week. Discard Pen After omeprazole (PRILOSEC) 40 mg capsule Take 1 capsule by mouth once daily. metFORMIN ER (GLUCOPHAGE XR) 500 mg 24 hr tablet Take 2 tablets by mouth two times a day. desvenlafaxine 100 mg Tb24 Take 1 Tablet By Oral Route 1 time per day mirtazapine (REMERON) 15 mg tablet Take 1 Tablet By Oral Route at bedtime. Insulin Weston, Disposable, (PEN NEEDLE) 29 gauge x 1/2 Use one needle per dose. one per day blood sugar diagnostic (BLOOD GLUCOSE TEST) test strip Test blood sugar(s) 2 times daily. Dx: Type 2 DM - Uncontrolled E11.65 Insulin: yes Lancets lancets Test blood sugar(s) 1 times daily. Dx: Type 2 DM - Uncontrolled E11.65 Insulin: No furosemide (LASIX) 20 mg tablet Take one tab by mouth as need when you have a 3 lb weight gain or more longer then two days. gabapentin (NEURONTIN) 600 mg tablet Take 1 tablet by mouth twice daily for 180 days. Per [facility] prazosin (MINIPRESS) 1 mg cap Take 3 caps AT BEDTIME for Anxiety Current Facility-Administered Medications Medication Dose Route Frequency perflutren lipid microspheres 1.3 mL in NaCl (PF) 0.9% 10 mL injection (DEFINITY) INTRAVENOUS DIRECTED PRN sodium chloride 0.9 % (flush) 10 mL (BD POSIFLUSH) 10 mL INTRAVENOUS DIRECTED PRN Facility-Administered Medications Ordered in Other Visits Medication Dose Route Frequency lidocaine (PF) 10 mg/mL (1 %) 1-2 mg injection (XYLOCAINE) 0.1-0.2 mL INTRADERMAL PRN lactated ringers iv infusion 30 mL/hr INTRAVENOUS CONTINUOUS FAMILY HISTORY Problem Relation Age of Onset other (Parkinson) Mother Diabetes Father Coronary Artery Disease Father 51 other (crohns) Sister Breast Cancer Maternal Grandmother Heart Maternal Grandmother Diabetes Maternal Grandmother Colon Cancer Maternal Grandfather Heart Maternal Uncle Coronary Artery Disease Maternal Uncle first in late 30's Social History Tobacco Use Smoking status: Former Packs/day: 0.50 Years: 10.00 Additional pack years: 0.00 Total pack years: 5.00 Types: Cigarettes Quit date: 09/20/2012 Years since quittin.5 Smokeless tobacco: Never Tobacco comments: Father smoked in childhood home. Substance Use Topics Alcohol use: Not Currently Comment: 3-4 at time twice a year, mixed drinks Drug use: No EXAM: BP 110/88 Pulse 85 Resp 16 LMP 09/02/2015 SpO2 96% PHYSICAL EXAM: General Appearance: Well appearing, alert, in no acute distress, well-hydrated, well nourished.. Skin: Skin color, texture, turgor normal. 2 circular lesions, when look w/ magnification, appears that may have a couple of small vesicular lesions. Head: Normocephalic, no masses, lesions, tenderness or abnormalities. Ears: External ears normal, canals clear. Lungs: Lungs clear to auscultation. No wheezing, rhonchi, rales.. Heart: RRR without murmur, gallop, or rubs. No ectopy. Neurologic: Gait normal. ASSESSMENT/PLAN: 1. Herpes zoster with complication - ICD9: 053.8, ICD10: B02.8 Patient reports similar to previous herpes zoster infection. Will go ahead and start treatment. - VALACYCLOVIR 1 GRAM TABLET Discussed treatment plan and patient voices understanding. Patient's questions answered appropriately. Medications and potential side effects were discussed and patient voices understanding. Return to the office as scheduled or as needed for worsening/no improvement. Oumou Posey APRN.MAT MAN documented in this encounterSycamore Medical Center04-22-2024 Telephone encounter Note * Telephone Encounter - Michelle Beaver MA - 03/04/2024 9:13 AM EDT Patient has been identified by name and date of : yes Patient phones for refill(s): Requested Prescriptions Pending Prescriptions Disp Refills nadolol (CORGARD) 40 mg tablet 60 tablet 5 Sig: Take 1 tablet by mouth two times a day. Date of last office visit in primary care: 09/04/2023 Date of next office visit in primary care: 03/22/2024 Please advise. Thank you. Michelle Beaver MA. [facility]04-[facility] Miscellaneous Notes* Telephone Encounter - Michelle Beaver MA - 03/04/2024 9:13 AM EDT Patient has been identified by name and date of : yes Patient phones for refill(s): Requested Prescriptions Pending Prescriptions Disp Refills nadolol (CORGARD) 40 mg tablet 60 tablet 5 Sig: Take 1 tablet by mouth two times a day. Date of last office visit in primary care: 09/04/2023 Date of next office visit in primary care: 03/22/2024 Please advise. Thank you. Michelle Beaver MA. documented in this encounterSycamore Medical Center04-05-2024 Miscellaneous Notes* Telephone Encounter - Shawna Douglas RN - 02/16/2024 3:26 PM EDT Patient returns call and provider message reviewed. Patient verbalizes understanding and will request further refills from GI. Shawna Douglas RN * Telephone Encounter - Karely Moses LPN - 02/16/2024 2:56 PM EDT leftLeft message to call office. 02/16/2024 2:57 PM Karely Moses LPN * Telephone Encounter - Francesco Mandujano MD - 02/16/2024 12:57 PM EDT Let patient know refill sent for phenergan. In the future I would like her to ask her GI if she should continue this. If so then to get refills through them. The following approved medication requests have been transmitted electronically. Requested Prescriptions Signed Prescriptions Disp Refills promethazine (PHENERGAN) 12.5 mg tablet 30 tablet 0 Sig: Take 1 tablet by mouth every 6 hours as needed. Authorizing Provider: FRANCESCO MANDUJANO MD * Telephone Encounter - Ventura Koenig LPN - 02/16/2024 9:30 AM EDT Patient has been identified by name and date of : Yes Patient phones for refill(s): Requested Prescriptions Pending Prescriptions Disp Refills promethazine (PHENERGAN) 12.5 mg tablet 30 tablet 0 Sig: Take 1 tablet by mouth every 6 hours as needed. Date of last office visit in primary care: 09/04/2023 Date of next office visit in primary care: 03/22/2024 Please advise. Thank you. Ventura Koenig LPN. documented in this encounterSycamore Medical Center04-03-2024 Nurse Note* Carmen Dillard RN - 02/14/2024 11:[address] Esteban Junior spoke with patient at bedside. Mom at bedside now. Discharge instructions reviewed [facility] Note* Carmen Dillard RN - 02/14/2024 11:[address] Esteban Junior spoke with patient at bedside. Mom at bedside now. Discharge instructions reviewed documented in this encounterSycamore Medical Center04-03-2024 Note* Discharge Instr - Nursing - Carmen Dillard RN - 02/14/2024 11:37 AM EDT The patient received a copy of Colonoscopy and EGD discharge instructions that contain information for how to contact the physician who performed the procedure and when to seek medical care. [facility]04-[facility] Miscellaneous Notes* Discharge Instr - Nursing - Carmen Dillard RN - 02/14/2024 11:37 AM EDT The patient received a copy of Colonoscopy and EGD discharge instructions that contain information for how to contact the physician who performed the procedure and when to seek medical care. documented in this encounterSycamore Medical Center04-03-2024 History and physical note * Louise Espino MD - 02/14/2024 10:30 AM EDT Endoscopy pre-operative H&P H&P completed prior to the start time of the procedure. IMPRESSION AND PLAN HPI: This is a 43 year old female. For EGD and colonoscopy for chronic diarrhea. Pertinent Review of Systems: GI: See HPI All other reviewed and negative other than HPI. PAST MEDICAL HISTORY: PAST MEDICAL HISTORY Diagnosis Date Abnormal glandular Papanicolaou smear of cervix 10/05/2010 Controlled type 2 diabetes mellitus without complication, without long-term current use of insulin ([facility]) 05/03/2016 Current use of proton pump inhibitor 11/15/2016 Mg checked 01/2017 DUB (dysfunctional uterine bleeding) 01/18/2013 Dyslipidemia 06/05/2014 Elevated LFTs 06/10/2015 Erythrocytosis 03/27/2022 Seen Hematology 09/2018 with neg w/u Essential hypertension with goal blood pressure less than 130/85 04/26/2016 Fatty liver 06/13/2014 Gastroesophageal reflux disease without esophagitis 06/10/2015 Resolved. Generalized anxiety disorder 01/02/2016 Hypomagnesemia 04/02/2019 Large breasts 08/23/2017 Had breast reduction 02/16/2018 Mild intermittent asthma without complication 11/15/2016 Moderate episode of recurrent major depressive disorder (HCC) 11/15/2016 Morbid obesity with body mass index (BMI) of 45.0 to 49.9 in adult (HCC) 07/13/2017 Muscle spasm 08/23/2017 MVP (mitral valve prolapse) Neck pain on left side 08/23/2017 Obesity (BMI 30-39.9) 07/13/2017 PCOS (polycystic ovarian syndrome) 01/18/2013 PTSD (post-traumatic stress disorder) 01/02/2016 Pulmonary HTN ([facility]) Seeing Dr. Campbell Routine gynecological examination Sees Dr. Estrada Seronegative rheumatoid arthritis ([facility]) 07/26/2019 Seeing [facility] Suicidal behavior with attempted self-injury ([facility]) 08/19/2020 08/17/2020: overdose on muscle relaxors, Sent to inpatient unit [facility] Suicidal behavior with attempted self-injury ([facility]) 08/19/2020 08/17/2020: overdose on muscle relaxors, Sent to inpatient unit [facility] Type 2 diabetes mellitus with hyperglycemia, without long-term current use of insulin ([facility]) 05/03/2016 Vitamin D deficiency 02/21/2019 PAST SURGICAL HISTORY: PAST SURGICAL HISTORY Procedure Laterality Date *STRESS TEST PC 02/2015 NL APPENDECTOMY 14y/o open case CARPAL TUNNEL [id number] COLONOSCOPY FLX DX W/COLLJ SPEC WHEN PFRMD 08/05/15 Colonoscopy out pt [facility] ESOPHAGOGASTRODUODENOSCOPY TRANSORAL DIAGNOSTIC 08/05/15 EGD out pt [facility] HYSTERECTOMY HX LAPAROSCOPY SURG CHOLECYSTECTOMY [id number] Cholecystectomy, lap PAST SURGICAL HISTORY OF 02/2014 right meniscus repair PAST SURGICAL HISTORY OF 01/18/2017 right medial meniscal tear repair PAST SURGICAL HISTORY OF 02/2018 breast reduction surgery PAST SURGICAL HISTORY OF Right meniscus repair OBJECTIVE: PHYSICAL EXAM: VITALS: LMP 09/02/2015 General appearance: A&Ox3 Respiratory: Normal chest expansion. No audible wheezes. CVS: No shortness of breath, no extremity edema. Regular pulse. Plan: OK to proceed with endoscopy. SIGNATURE: Louise Espino MD PATIENT NAME: Lukasz Diaz [facility] Work Phone: [phone]) 127-129004-03-2024 History and physical note* Louise Espino MD - 02/14/2024 10:30 AM EDT Endoscopy pre-operative H&P H&P completed prior to the start time of the procedure. IMPRESSION AND PLAN HPI: This is a 43 year old female. For EGD and colonoscopy for chronic diarrhea. Pertinent Review of Systems: GI: See HPI All other reviewed and negative other than HPI. PAST MEDICAL HISTORY: PAST MEDICAL HISTORY Diagnosis Date Abnormal glandular Papanicolaou smear of cervix 10/05/2010 Controlled type 2 diabetes mellitus without complication, without long-term current use of insulin (HCC) 05/03/2016 Current use of proton pump inhibitor 11/15/2016 Mg checked 01/2017 DUB (dysfunctional uterine bleeding) 01/18/2013 Dyslipidemia 06/05/2014 Elevated LFTs 06/10/2015 Erythrocytosis 03/27/2022 Seen Hematology 09/2018 with neg w/u Essential hypertension with goal blood pressure less than 130/85 04/26/2016 Fatty liver 06/13/2014 Gastroesophageal reflux disease without esophagitis 06/10/2015 Resolved. Generalized anxiety disorder 01/02/2016 Hypomagnesemia 04/02/2019 Large breasts 08/23/2017 Had breast reduction 02/16/2018 Mild intermittent asthma without complication 11/15/2016 Moderate episode of recurrent major depressive disorder (HCC) 11/15/2016 Morbid obesity with body mass index (BMI) of 45.0 to 49.9 in adult (HCC) 07/13/2017 Muscle spasm 08/23/2017 MVP (mitral valve prolapse) Neck pain on left side 08/23/2017 Obesity (BMI 30-39.9) 07/13/2017 PCOS (polycystic ovarian syndrome) 01/18/2013 PTSD (post-traumatic stress disorder) 01/02/2016 Pulmonary HTN ([facility]) Seeing Dr. Campbell Routine gynecological examination Sees Dr. Estrada Seronegative rheumatoid arthritis ([facility]) 07/26/2019 Seeing [facility] Suicidal behavior with attempted self-injury ([facility]) 08/19/2020 08/17/2020: overdose on muscle relaxors, Sent to inpatient unit [facility] Suicidal behavior with attempted self-injury ([facility]) 08/19/2020 08/17/2020: overdose on muscle relaxors, Sent to inpatient unit [facility] Type 2 diabetes mellitus with hyperglycemia, without long-term current use of insulin ([facility]) 05/03/2016 Vitamin D deficiency 02/21/2019 PAST SURGICAL HISTORY: PAST SURGICAL HISTORY Procedure Laterality Date *STRESS TEST PC 02/2015 NL APPENDECTOMY 14y/o open case CARPAL TUNNEL [id number] COLONOSCOPY FLX DX W/COLLJ SPEC WHEN PFRMD 08/05/15 Colonoscopy out pt [facility] ESOPHAGOGASTRODUODENOSCOPY TRANSORAL DIAGNOSTIC 08/05/15 EGD out pt [facility] HYSTERECTOMY HX LAPAROSCOPY SURG CHOLECYSTECTOMY [id number] Cholecystectomy, lap PAST SURGICAL HISTORY OF 02/2014 right meniscus repair PAST SURGICAL HISTORY OF 01/18/2017 right medial meniscal tear repair PAST SURGICAL HISTORY OF 02/2018 breast reduction surgery PAST SURGICAL HISTORY OF Right meniscus repair OBJECTIVE: PHYSICAL EXAM: VITALS: LMP 09/02/2015 General appearance: A&Ox3 Respiratory: Normal chest expansion. No audible wheezes. CVS: No shortness of breath, no extremity edema. Regular pulse. Plan: OK to proceed with endoscopy. SIGNATURE: Louise Espino MD PATIENT NAME: Lukasz Diaz documented in this encounterSycam[facility] Center03-15-2024 Miscellaneous Notes* Telephone Encounter - Francesco Mandujano MD - 01/26/2024 4:42 PM EDT The following approved medication requests have been transmitted electronically. Requested Prescriptions Signed Prescriptions Disp Refills metFORMIN ER (GLUCOPHAGE XR) 500 mg 24 hr tablet 120 tablet 3 Sig: Take 2 tablets by mouth two times a day. Authorizing Provider: FRANCESCO MANDUJANO MD * Telephone Encounter - Ventura Koenig LPN - 01/26/2024 4:11 PM EDT Patient has been identified by name and date of : Yes Patient phones for refill(s): Requested Prescriptions Pending Prescriptions Disp Refills metFORMIN ER (GLUCOPHAGE XR) 500 mg 24 hr tablet 120 tablet 0 Sig: Take 2 tablets by mouth two times a day. Date of last office visit in primary care: 09/04/2023 Date of next office visit in primary care: 03/22/2024 Please advise. Thank you. Ventura Koenig LPN. documented in this encounterSycamore Medical Center03-15-2024 Miscellaneous Notes* Telephone Encounter - Francesco Mandujano MD - 01/26/2024 4:41 PM EDT The following approved medication requests have been transmitted electronically. Requested Prescriptions Signed Prescriptions Disp Refills omeprazole (PRILOSEC) 40 mg capsule 30 capsule 3 Sig: Take 1 capsule by mouth once daily. Authorizing Provider: FRANCESCO MANDUJANO promethazine (PHENERGAN) 12.5 mg tablet 30 tablet 0 Sig: Take 1 tablet by mouth every 6 hours as needed. Authorizing Provider: FRANCESCO MANDUJANO MD * Telephone Encounter - Ventura Koenig LPN - 01/26/2024 4:07 PM EDT Patient has been identified by name and date of : Yes Patient phones for refill(s): Requested Prescriptions Pending Prescriptions Disp Refills omeprazole (PRILOSEC) 40 mg capsule 30 capsule 3 Sig: Take 1 capsule by mouth once daily. promethazine (PHENERGAN) 12.5 mg tablet 30 tablet 0 Sig: Take 1 tablet by mouth every 6 hours as needed. Date of last office visit in primary care: 09/04/2023 Date of next office visit in primary care: 03/22/2024 Please advise. Thank you. Ventura Koenig LPN. documented in this encounterSycamore Medical Center02-29-2024 Miscellaneous Notes* Telephone Encounter - Francesco Mandujano MD - 01/11/2024 2:53 PM EST It is ok for Lukasz to hold her Trulicty for 7 days piror to having her colonoscopy/EGD. You will need to notify patient of this need. * Telephone Encounter - Casandra Landis - 01/11/2024 2:[address] Mandujano, We are requesting approval for Luksaz to hold her trulicity injection for 7 days prior to her scheduled colonoscopy/ endoscopy on February 14, 2024. Due to recent changes from PACC guidelines for GLP-1 Agnoists and SGLT2 Inhibitors, these drugs are of concern because they delay gastric emptying and can lead to aspiration of solid material, even after prolonged fasting periods.Please advise our office and patient directly. Thank you, Casandra Landis documented in this encounterSycamore Medical Center02-29-2024 History of Present illness Narrative* Louise Espino MD - 01/11/2024 1:43 PM EST CHIEF COMPLAINT: Patient presents with: Abdominal Pain Gas Diarrhea This consult was requested by Francesco Mandujano MD for an opinion regarding abdominal pain and diarrhea. My final recommendations will be communicated to the requesting health care provider by way of the shared medical record for internal providers or letter via the [employer] for external providers. HPI: Lukasz Diaz is a 43 year old female. Hx of anxiety, PTSD , obesity, PCOS, DM, who presents for Abdominal Pain, Gas, and Diarrhea for the past 3 months. Started with nausea and diarrhea and abdominal and bloating. Diarrhea is mushy or watery. + mucous,noticed that there is blood mixed with the stools about 2 days ago for the first time. Never had this problem before. Did not start a new medications. Abdominal pain is related to BMs. Most of the time there is a relationship to food. Nocturnal diarrhea is not a consistent issue for her. Controlledwith imodium, takes 2 per. Tried PPI and probiotics and that did not give her sustained good response. Nausea and vomiting not everyday. Water makes her nauseated and may induce vomiting. Does not smokemarijuana, uses edibles. CTAP Aug 2023 No acute process within the abdomen or pelvis. Record Review: [facility] / Outside records reviewed. PAST MEDICAL HISTORY Diagnosis Date Abnormal glandular Papanicolaou smear of cervix 10/05/2010 Controlled type 2 diabetes mellitus without complication, without long-term current use of insulin ([facility]) 05/03/2016 Current use of proton pump inhibitor 11/15/2016 Mg checked 01/2017 DUB (dysfunctional uterine bleeding) 01/18/2013 Dyslipidemia 06/05/2014 Elevated LFTs 06/10/2015 Erythrocytosis 03/27/2022 Seen Hematology 09/2018 with neg w/u Essential hypertension with goal blood pressure less than 130/85 04/26/2016 Fatty liver 06/13/2014 Gastroesophageal reflux disease without esophagitis 06/10/2015 Resolved. Generalized anxiety disorder 01/02/2016 Hypomagnesemia 04/02/2019 Large breasts 08/23/2017 Had breast reduction 02/16/2018 Mild intermittent asthma without complication 11/15/2016 Moderate episode of recurrent major depressive disorder (HCC) 11/15/2016 Morbid obesity with body mass index (BMI) of 45.0 to 49.9 in adult ([facility]) 07/13/2017 Muscle spasm 08/23/2017 MVP (mitral valve prolapse) Neck pain on left side 08/23/2017 Obesity (BMI 30-39.9) 07/13/2017 PCOS (polycystic ovarian syndrome) 01/18/2013 PTSD (post-traumatic stress disorder) 01/02/2016 Pulmonary HTN ([facility]) Seeing Dr. Campbell Routine gynecological examination Sees Dr. Estrada Seronegative rheumatoid arthritis ([facility]) 07/26/2019 Seeing [facility] Suicidal behavior with attempted self-injury ([facility]) 08/19/2020 08/17/2020: overdose on muscle relaxors, Sent to inpatient unit [facility] Suicidal behavior with attempted self-injury (HCC) 08/19/2020 08/17/2020: overdose on muscle relaxors, Sent to inpatient unit [facility] Type 2 diabetes mellitus with hyperglycemia, without long-term current use of insulin (HCC) 05/03/2016 Vitamin D deficiency 02/21/2019 PAST SURGICAL HISTORY Procedure Laterality Date *STRESS TEST PC 02/2015 NL APPENDECTOMY 14y/o open case CARPAL TUNNEL [id number] COLONOSCOPY FLX DX W/COLLJ SPEC WHEN PFRMD 08/05/15 Colonoscopy out pt [facility] ESOPHAGOGASTRODUODENOSCOPY TRANSORAL DIAGNOSTIC 08/05/15 EGD out pt [facility] HYSTERECTOMY HX LAPAROSCOPY SURG CHOLECYSTECTOMY [id number] Cholecystectomy, lap PAST SURGICAL HISTORY OF 02/2014 right meniscus repair PAST SURGICAL HISTORY OF 01/18/2017 right medial meniscal tear repair PAST SURGICAL HISTORY OF 02/2018 breast reduction surgery PAST SURGICAL HISTORY OF Right meniscus repair Allergies: ALLERGIES Allergen Reactions Lamictal [Lamotrigi* Other: See Comments Made her suicidal Toradol [Ketorolac] Shortness of Breath Elevates BP; dyspnea Zoloft [Sertraline * Other: See Comments suicidal. Adhesive Other: See Comments Ibuprofen Unknown Naproxen Other: See Comments Psyllium Unknown Actos [Pioglitazone* Other: See Comments Sweats and chills Celexa [Citalopram] Intolerance Electrical shock feelings Eggs [Egg] GI Upset Fenofibrate GI Upset Lipitor [Atorvastat* Myalgia Plaquenil [Hydroxyc* Other: See Comments GI upset and pain Pravachol [Pravasta* GI Upset Zocor [Simvastatin] Myalgia Medications: desvenlafaxine 100 mg Tb24^Take 1 Tablet By Oral Route 1 time per day^Disp: ^Rfl: mirtazapine (REMERON) 15 mg tablet^Take 1 Tablet By Oral Route at bedtime.^Disp: ^Rfl: promethazine (PHENERGAN) 12.5 mg tablet^Take 1 tablet by mouth every 6 hours as needed.^Disp: 30 tablet^Rfl: 0 metFORMIN ER (GLUCOPHAGE XR) 500 mg 24 hr tablet^Take 2 tablets by mouth two times a day.^Disp: 120tablet^Rfl: 0 omeprazole (PRILOSEC) 40 mg capsule^Take 1 capsule by mouth once daily.^Disp: 30 capsule^Rfl: 3 nadolol (CORGARD) 40 mg tablet^Take 1 tablet by mouth twice daily.^Disp: 60 tablet^Rfl: 5 dulaglutide (TRULICITY) 1.5 mg/0.5 mL pen injector^Inject 1.5 mg subcutaneously one time a week. Inject once per week. Discard Pen After^Disp: 4 Each^Rfl: 5 Insulin Weston, Disposable, (PEN NEEDLE) 29 gauge x 1/2^Use one needle per dose. one per day^Disp: 100 Each^Rfl: 11 blood sugar diagnostic (BLOOD GLUCOSE TEST) test strip^Test blood sugar(s) 2 times daily. Dx: Type 2 DM - Uncontrolled E11.65 Insulin: yes^Disp: 70 Strip^Rfl: 11 Lancets lancets^Test blood sugar(s) 1 times daily. Dx: Type 2 DM - Uncontrolled E11.65 Insulin: No^Disp: 100 Each^Rfl: 11 furosemide (LASIX) 20 mg tablet^Take one tab by mouth as need when you have a 3 lb weight gain or more longer then two days.^Disp: 30 tablet^Rfl: 5 prazosin (MINIPRESS) 1 mg cap^Take 3 caps AT BEDTIME for Anxiety^Disp: ^Rfl: gabapentin (NEURONTIN) 600 mg tablet^Take 1 tablet by mouth twice daily for 180 days. Per [facility]^Disp: ^Rfl: FAMILY HISTORY Problem Relation Age of Onset other (Parkinson) Mother Diabetes Father Coronary Artery Disease Father 51 Breast Cancer Maternal Grandmother Heart Maternal Grandmother Diabetes Maternal Grandmother other (crohns) Sister Colon Cancer Maternal Uncle Heart Maternal Uncle Coronary Artery Disease Maternal Uncle first in late 30's Employer And Job Title: [employer]); No employer specified (Unemployed) Years Of Education Completed: Not specified Marital Status: Single Social History Tobacco Use Smoking status: Former Packs/day: 0.50 Years: 10.00 Additional pack years: 0.00 Total pack years: 5.00 Types: Cigarettes Quit date: 09/20/2012 Years since quittin.3 Smokeless tobacco: Never Tobacco comments: Father smoked in childhood home. Substance Use Topics Alcohol use: Not Currently Comment: 3-4 at time twice a year, mixed drinks Drug use: No Review of Systems: Review of Systems HENT: Positive for mouth sores. Gastrointestinal: Abdominal swelling and pain, blood in stool, (last seen two days ago), diarrhea, gas, nausea and rectal pain All other systems reviewed and are negative. Are you taking any blood thinners? No Physical Examination: Ht 5' 8.5 (1.74m) Wt 256 lb 1.6 oz (116.2kg) LMP 09/02/2015 BMI 38.37 kg/(m^2). Physical Exam HENT: Head: Atraumatic. Abdominal: General: There is no distension. Comments: Mild epigastric tenderness. Obese Neurological: Mental Status: She is alert. ASSESSMENT: 1. Chronic diarrhea - Chronic diarrhea that has been present for 3 months. - Does not meet Cooper IV criteria for IBS. - Negative infectious and inflammatory markers. - HP negative. - DDX microscopic colitis, malabsorption, maldigestion. - She will stop marijuana and see if her symptoms (N/V) improve. I don't think marijuana use is related to the diarrhea. - EGD and colonoscopy with bx ordered. - EGD DIAGNOSTIC; Future - COLONOSCOPY DIAGNOSTIC; Future - CELIAC SCREEN WITH REFLEX; Future - TSH BLD; Future Louise Espino MD DATE: 01/11/24 TIME: 1:45 PM documented in this encounterSycamore Medical Center02-23-2024 Miscellaneous Notes* Telephone Encounter - Francesco Mandujano MD - 01/05/2024 1:52 PM EST The following approved medication requests have been transmitted electronically. Requested Prescriptions Signed Prescriptions Disp Refills promethazine (PHENERGAN) 12.5 mg tablet 30 tablet 0 Sig: Take 1 tablet by mouth every 6 hours as needed. Authorizing Provider: FRANCESCO MANDUJANO MD * Telephone Encounter - Joelle Nolasco LPN - 01/05/2024 1:49 PM EST Patient has been identified by name and date of : Yes, Provider Dr Mandujano Date 01/05/24 Time 1:49 pm Patient phones for refill(s): Requested Prescriptions Pending Prescriptions Disp Refills promethazine (PHENERGAN) 12.5 mg tablet 30 tablet 0 Sig: Take 1 tablet by mouth every 6 hours as needed. Date of last office visit in primary care: 09/04/2023 Date of next office visit in primary care: 03/22/2024 Please advise. Thank you. Joelle Nolasco LPN. documented in this encounterSycamore Medical Center12-14-2023 Miscellaneous Notes* Telephone Encounter - Basia Ann Ma - 10/26/2023 3:05 PM EST Advised pt to call insurance to find out what Gastro is in network then notify office and we can refer. Basia Ann Ma documented in this encounterSycamore Medical Center12-01-2023 Miscellaneous Notes* Telephone Encounter - Basia Ann Ma - 10/13/2023 9:30 AM EST Notified via [employer]. Basia Ann Ma * Telephone Encounter - Joelle Nolasco LPN - 10/11/2023 8:38 AM EST Left message for pt to contact office. Joelle Nolasco LPN * Telephone Encounter - Francesco Mandujano MD - 10/10/2023 7:08 PM EST Patient needs a routine appt. The following approved medication requests have been transmitted electronically. Requested Prescriptions Signed Prescriptions Disp Refills promethazine (PHENERGAN) 12.5 mg tablet 30 tablet 0 Sig: Take 1 tablet by mouth every 6 hours as needed. Authorizing Provider: FRANCESCO MANDUJANO MD * Telephone Encounter - Pearl Gill LPN - 10/10/2023 4:24 PM EST Patient has been identified by name and date of : Yes Patient phones for refill(s): Requested Prescriptions Pending Prescriptions Disp Refills promethazine (PHENERGAN) 12.5 mg tablet 30 tablet 0 Sig: Take 1 tablet by mouth every 6 hours as needed. Date of last office visit in primary care: 09/04/2023 Date of next office visit in primary care: Visit date not found Please advise. Thank you. Pearl Gill LPN. documented in this encounterSycamore Medical Center11-13-2023 Miscellaneous Notes* Telephone Encounter - Carmel Boone MA - 09/25/2023 10:03 AM EST Patient has been identified by name and date of : Yes Requested Prescriptions Pending Prescriptions Disp Refills promethazine (PHENERGAN) 12.5 mg tablet 30 tablet 0 Sig: Take 1 tablet by mouth every 6 hours as needed. RX INSTRUCTIONS: Patient aware RX will be sent to pharmacy. No need to notify patient. Carmel Boone MA [place] 08/2023 Last wellness exam: 03/2022. No current appointment scheduled. Last refill: 08/2023 documented in this encounterSycamore Medical Center10-27-2023 Miscellaneous Notes* Telephone Encounter - Selma Vazquez RN - 09/08/2023 3:33 PM EDT Patient returned call and given provider's message below and patient verbalized understanding. Pt requesting referral order and information to be faxed to Dr. Hilario's office. Faxed as requested. Karishma Vazquez RN * Telephone Encounter - Kajal Escalante Cma - 09/08/2023 8:52 AM EDT Left message for patient to return call to office Kajal Escalante Cma * Telephone Encounter - Francesco Mandujano MD - 09/07/2023 8:57 PM EDT Let patient know the x-ray and CT of her abdomen were normal. Next step is to see the computer consultant I placed the referral to at her appt on 09/04/2023 documented in this encounterSycamore Medical Center10-25-2023 History of Present illness Narrative* Reef Taryn Arnett, RT(R) - 09/06/2023 2:00 PM EDT Radiology Service Progress Note DATE OF SERVICE: September 06, 2023 TIME: 4:01 PM PATIENT IDENTITY VERIFICATION COMPLETED USING TWO (2) STANDARD IDENTIFIERS: Name and Date of confirmed by patient verbally. FALL SCREENING: Has the patient had 2 falls in the last year or 1 fall with injury or currently using an Ambulatory Assistive Device (Walker, Cane, Wheelchair, Crutches, etc.)? No PATIENT GENDER DATA: Female. status: : No status: NO. PATIENT RELEVANT IMPLANT DATA REVIEWED: Yes ALLERGIES: Reviewed and unchanged CONTRAST ALLERGY: NO. EXAM: CT -CONTRAST INDUCED NEPHROPATHY RISK FACTORS: Not applicable CREATININE: Creatinine Date Value Ref Range Status 08/30/2023 0.53 (L) 0.58 - 0.96 mg/dL Final 08/28/2023 0.43 (L) 0.58 - 0.96 mg/dL Final 11/22/2022 0.41 (L) 0.58 - 0.96 mg/dL Final Estimated Glomerular Filtration Rate Date Value Ref Range Status 08/30/2023 120 >=60 mL/min/1.73m Final Comment: Estimated Glomerular Filtration Rate (eGFR) is calculated using the 2020 CKD-EPI creatinine equation. This equation utilizes serum creatinine, sex, and age as parameters. The creatinine assay has traceable calibration to isotope dilution- mass spectrometry. Refer to KDIGO guidelines for clinical interpretation. In patients with unstable renal function, e.g. those with acute kidney injury, the eGFRmay not accurately reflect actual GFR. eGFR- Date Value Ref Range Status 11/04/2019 >60 Final P.O.C.T. RESULTS: POC done: Yes, See Lab Tab September 06, 2023 TREATMENT: N/A PERIPHERAL IV DATA: Ambulatory: A peripheral IV was started in the Left antecubital site with a Angio cath: 22 gauge. RADIOLOGY DEPARTMENT: CT; Exam(s) Completed: Abdomen/Pelvis SIGNATURE: RT Gwen(R) PATIENT NAME: Lukasz Diaz DATE: September 06, 2023 TIME: 4:01 PM documented in this encounterSycamore Medical Center10-23-2023 History of Present illness Narrative* Rachelle Joshi RT(R) - 09/04/2023 5:40 PM EDT Radiology Service Progress Note PATIENT NAME: Lukasz Diaz DATE OF SERVICE: September 04, 2023 TIME: 5:34 PM PATIENT IDENTITY VERIFICATION COMPLETED USING TWO (2) IDENTIFIERS: Name and Date of confirmedby patient verbally. FALL SCREENING: Has the patient had 2 falls in the last year or 1 fall with injury or currently using an Ambulatory Assistive Device (Walker, Cane, Wheelchair, Crutches, etc.)? No PATIENT GENDER DATA: Female. status: : No status: NO. PATIENT RELEVANT IMPLANT DATA REVIEWED: Not Applicable RADIOLOGY DEPARTMENT: General X-ray: Exam(s) Completed: Abdomen X-Ray: Abdomen with Obliques PERIPHERAL IV DATA: Not applicable SIGNED BY: RT Sivan(R) September 04, 2023 5:34 PM documented in this encounterSycamore Medical Center10-23-2023 Instructions* Patient Instructions* Francesco Mandujano MD - 09/04/2023 5:12 PM EDT On the day of the CT exam you are to stop taking the metformin. Two days after the CT we will need to check your kidney functions to see if we can restart the metformin. documented in this encounterSycamore Medical Center10-23-2023 History of Present illness Narrative* Francesco Mandujano MD - 09/04/2023 4:28 PM EDT Chief Complaint Patient presents with: Pain, Abdominal HPI Lukasz Diaz is a 42 year old female who presents here today for Acute onset of abdomen pain.. Patient indicated upper abdomen pain and now radiates to the right side. No vomiting. Pain scale: 6 Pain location abdomen Describe pain; aching and sometimes sharp Upper pain is constant; right side stabbing comes and does. Nausea/vomiting. Patient has not eaten since Monday. Patient is not tolerating fluids. She did some popsicles yesterday. May be able to tolerate pretzels. No known fever. Hematochezia or melena. Has felt distended/bloated at times. No close family members with celiacs. Her sister does have chron's. Patient does not have her gallbladder since the early and never had issues with diarrhea up until 3-4 weeks ago. Patient is not currently checking her sugars Patient just restarted her metformin a few months ago and just started the lantus that was prescribed in November 2022 in the past few weeks. Patient was first seen for this epigastric pain and diarrhea at the [facility] on 08/28/2023. Labs at that time were all unremarkable or stable from previous labs. Component Latest Ref Rng & Units 08/28/2023 08/31/2023 WBC 3.70 - 11.00 k/uL 12.40 (H) RBC 3.90 - 5.20 m/uL 5.36 (H) Hemoglobin 11.5 - 15.5 g/dL 16.1 (H) Hematocrit 36.0 - 46.0 % 45.9 MCV 80.0 - 100.0 fL 85.6 MCH 26.0 - 34.0 pg 30.0 MCHC 30.5 - 36.0 g/dL 35.1 RDW-CV 11.5 - 15.0 % 12.1 Platelet Count 150 - 400 k/uL 271 MPV 9.0 - 12.7 fL 11.9 Neut% % 64.9 Abs Neut (ANC) 1.45 - 7.50 k/uL 8.05 (H) Lymph% % 24.8 Abs Lymph 1.00 - 4.00 k/uL 3.07 [place]% % 8.2 Abs [place] <0.87 k/uL 1.02 (H) Eosin% % 1.1 Abs Eosin <0.46 k/uL 0.14 Baso% % 0.6 Abs Baso <0.11 k/uL 0.07 Immature Gran % % 0.4 IMMATURE GRANS (ABS) <0.10 k/uL 0.05 NRBC /100 WBC 0.0 Absolute nRBC <0.01 k/uL <0.01 DTYPE Auto Protein, Total 6.3 - 8.0 g/dL 6.9 Albumin 3.9 - 4.9 g/dL 4.0 Calcium 8.5 - 10.2 mg/dL 9.0 Bilirubin, Total 0.2 - 1.3 mg/dL 0.4 Alkaline Phosphatase 34 - 123 U/L 101 AST 13 - 35 U/L 51 (H) ALT 7 - 38 U/L 54 (H) Glucose 74 - 99 mg/dL 410 (H) BUN 7 - 21 mg/dL 7 Creatinine 0.58 - 0.96 mg/dL 0.43 (L) Sodium 136 - 144 mmol/L 132 (L) Potassium 3.7 - 5.1 mmol/L 3.8 Chloride 97 - 105 mmol/L 97 CO2 22 - 30 mmol/L 23 Anion Gap 9 - 18 mmol/L 12 eGFR >=60 mL/min/1.73m 126 Test Results Negative Negative for lactoferrin, which may indicate the absence of fecal white bloodcells Patient was then seen in the office on 08/30/2023 for same symptoms. Lab then were: Component Latest Ref Rng & Units 08/28/2023 08/30/2023 08/31/2023 08/31/2023 12:30 PM 12:34 PM WBC 3.70 - 11.00 k/uL 12.40 (H) 11.18 (H) RBC 3.90 - 5.20 m/uL 5.36 (H) 5.47 (H) Hemoglobin 11.5 - 15.5 g/dL 16.1 (H) 16.5 (H) Hematocrit 36.0 - 46.0 % 45.9 48.8 (H) MCV 80.0 - 100.0 fL 85.6 89.2 MCH 26.0 - 34.0 pg 30.0 30.2 MCHC 30.5 - 36.0 g/dL 35.1 33.8 RDW-CV 11.5 - 15.0 % 12.1 11.9 Platelet Count 150 - 400 k/uL 271 261 MPV 9.0 - 12.7 fL 11.9 12.4 Neut% % 64.9 62.5 Abs Neut (ANC) 1.45 - 7.50 k/uL 8.05 (H) 6.99 Lymph% % 24.8 28.1 Abs Lymph 1.00 - 4.00 k/uL 3.07 3.14 [place]% % 8.2 7.7 Abs [place] <0.87 k/uL 1.02 (H) 0.86 Eosin% % 1.1 0.8 Abs Eosin <0.46 k/uL 0.14 0.09 Baso% % 0.6 0.5 Abs Baso <0.11 k/uL 0.07 0.06 Immature Gran % % 0.4 0.4 IMMATURE GRANS (ABS) <0.10 k/uL 0.05 0.04 NRBC /100 WBC 0.0 0.0 Absolute nRBC <0.01 k/uL <0.01 <0.01 DTYPE Auto Auto Shigella spp./Enteroinvasive E.coli DNA Not Detected Not detected Campylobacter jejuni/coli DNA Not Detected Not detected Shiga toxin-producing gene(s) Not Detected Not detected Salmonella spp. DNA Not Detected Not detected Cryptosporidium Antigen by EIA Negative Negative for Cryptosporidium by EIA. Giardia Antigen by EIA Negative Negative for Giardia lamblia by EIA. C. difficile PCR Negative for C. difficile toxin by PCR Negative for C. difficile toxin by PCR Negative for C. difficile toxin by PCR Lipase 16 - 61 U/L 42 Rotavirus AG By EIA Negative for Rotavirus by EIA Negative for Rotavirus by EIA Test Result Negative for H. Pylori antigen by EIA Negative for Helicobacter pylori antigen by EIA Component Latest Ref Rng & Units 08/31/2023 CALPROTECTIN, FECAL QUANTITATIVE <50 ug/g 32.6 CALPROTECTIN, FECAL INTERP Normal Normal Test Results Negative Negative for lactoferrin, which may indicate the absence of fecal white bloodcells Past medical history, appointments, medications, allergies reviewed. Previous Medical History PAST MEDICAL HISTORY Diagnosis Date Abnormal glandular Papanicolaou smear of cervix 10/05/2010 Controlled type 2 diabetes mellitus without complication, without long-term current use of insulin ([facility]) 05/03/2016 Current use of proton pump inhibitor 11/15/2016 Mg checked 01/2017 DUB (dysfunctional uterine bleeding) 01/18/2013 Dyslipidemia 06/05/2014 Elevated LFTs 06/10/2015 Erythrocytosis 03/27/2022 Seen Hematology 09/2018 with neg w/u Essential hypertension with goal blood pressure less than 130/85 04/26/2016 Fatty liver 06/13/2014 Gastroesophageal reflux disease without esophagitis 06/10/2015 Resolved. Generalized anxiety disorder 01/02/2016 Hypomagnesemia 04/02/2019 Large breasts 08/23/2017 Had breast reduction 02/16/2018 Mild intermittent asthma without complication 11/15/2016 Moderate episode of recurrent major depressive disorder ([facility]) 11/15/2016 Morbid obesity with body mass index (BMI) of 45.0 to 49.9 in adult ([facility]) 07/13/2017 Muscle spasm 08/23/2017 MVP (mitral valve prolapse) Neck pain on left side 08/23/2017 Obesity (BMI 30-39.9) 07/13/2017 PCOS (polycystic ovarian syndrome) 01/18/2013 PTSD (post-traumatic stress disorder) 01/02/2016 Pulmonary HTN ([facility]) Seeing Dr. Campbell Routine gynecological examination Sees Dr. Estrada Seronegative rheumatoid arthritis ([facility]) 07/26/2019 Seeing [facility] Suicidal behavior with attempted self-injury ([facility]) 08/19/2020 08/17/2020: overdose on muscle relaxors, Sent to inpatient unit [facility] Suicidal behavior with attempted self-injury ([facility]) 08/19/2020 08/17/2020: overdose on muscle relaxors, Sent to inpatient unit [facility] Type 2 diabetes mellitus with hyperglycemia, without long-term current use of insulin ([facility]) 05/03/2016 Vitamin D deficiency 02/21/2019 Previous Surgical History PAST SURGICAL HISTORY Procedure Laterality Date *STRESS TEST PC 02/2015 NL APPENDECTOMY 14y/o open case CARPAL TUNNEL [id number] COLONOSCOPY FLX DX W/COLLJ SPEC WHEN PFRMD 08/05/15 Colonoscopy out pt [facility] ESOPHAGOGASTRODUODENOSCOPY TRANSORAL DIAGNOSTIC 08/05/15 EGD out pt [facility] HYSTERECTOMY HX LAPAROSCOPY SURG CHOLECYSTECTOMY [id number] Cholecystectomy, lap PAST SURGICAL HISTORY OF 02/2014 right meniscus repair PAST SURGICAL HISTORY OF 01/18/2017 right medial meniscal tear repair PAST SURGICAL HISTORY OF 02/2018 breast reduction surgery PAST SURGICAL HISTORY OF Right meniscus repair Family History FAMILY HISTORY Problem Relation Age of Onset other (Parkinson) Mother Diabetes Father Coronary Artery Disease Father 51 Breast Cancer Maternal Grandmother Heart Maternal Grandmother Diabetes Maternal Grandmother other (crohns) Sister Colon Cancer Maternal Uncle Heart Maternal Uncle Coronary Artery Disease Maternal Uncle first in late 30's Patient Allergies ALLERGIES Allergen Reactions Lamictal [Lamotrigi* Other: See Comments Made her suicidal Toradol [Ketorolac] Shortness of Breath Elevates BP; dyspnea Zoloft [Sertraline * Other: See Comments suicidal. Actos [Pioglitazone* Other: See Comments Sweats and chills Celexa [Citalopram] Intolerance Electrical shock feelings Eggs [Egg] GI Upset Fenofibrate GI Upset Lipitor [Atorvastat* Myalgia Plaquenil [Hydroxyc* Other: See Comments GI upset and pain Pravachol [Pravasta* GI Upset Zocor [Simvastatin] Myalgia Current Medications Current Outpatient Medications on File Prior to Visit Medication Sig ondansetron orally disintegrating (ZOFRAN ODT) 4 mg disintegrating tablet Take 1 tablet by mouth every 6 hours as needed for nausea/vomiting. nadolol (CORGARD) 40 mg tablet Take 1 tablet by mouth twice daily. dulaglutide (TRULICITY) 1.5 mg/0.5 mL pen injector Inject 1.5 mg subcutaneously one time a week. Inject once per week. Discard Pen After insulin glargine (LANTUS SOLOSTAR, BASAGLJUNG JEAN) 100 unit/mL (3 mL) Inject 10 Units subcutaneously daily at bedtime. Insulin Weston, Disposable, (PEN NEEDLE) 29 gauge x 1/2 Use one needle per dose. one per day blood sugar diagnostic (BLOOD GLUCOSE TEST) test strip Test blood sugar(s) 2 times daily. Dx: Type 2 DM - Uncontrolled E11.65 Insulin: yes rosuvastatin (CRESTOR) 5 mg tablet Take 1 tablet by mouth once daily. metFORMIN ER (GLUCOPHAGE XR) 500 mg 24 hr tablet Take 2 tablets by mouth twice daily. Lancets lancets Test blood sugar(s) 1 times daily. Dx: Type 2 DM - Uncontrolled E11.65 Insulin: No furosemide (LASIX) 20 mg tablet Take one tab by mouth as need when you have a 3 lb weight gain or more longer then two days. gabapentin (NEURONTIN) 600 mg tablet Take 1 tablet by mouth twice daily for 180 days. Per [facility] prazosin (MINIPRESS) 1 mg cap Take 3 caps AT BEDTIME for Anxiety Current Facility-Administered Medications on File Prior to Visit Medication perflutren lipid microspheres 1.3 mL in NaCl (PF) 0.9% 10 mL injection (DEFINITY) sodium chloride 0.9 % (flush) 10 mL (BD POSIFLUSH) Social History Social History Tobacco Use Smoking status: Former Packs/day: 0.50 Years: 10.00 Additional pack years: 0.00 Total pack years: 5.00 Types: Cigarettes Quit date: 09/20/2012 Years since quittin.9 Smokeless tobacco: Never Tobacco comments: Father smoked in childhood home. Substance Use Topics Alcohol use: Not Currently Comment: 3-4 at time twice a year, mixed drinks Drug use: No Review of Symptoms REVIEW OF SYSTEMS See HPI EXAM: BP 98/64 (BP Site: Left Arm, BP Position: Sitting, BP Cuff Size: Large Adult) Pulse 88 Temp 37 C (98.6 F) (Tympanic) Resp 18 Wt 114.3 kg (252 lb) LMP 09/02/2015 BMI 37.76 kg/m Last 6 Encounter Wt Readings: Date: Wt: 09/04/2023 114.3 kg (252 lb) 08/28/2023 116.4 kg (256 lb 9.6 oz) 07/24/2023 117.5 kg (259 lb) 01/27/2023 122.5 kg (270 lb) 10/31/2022 122.5 kg (270 lb) 03/24/2022 117.5 kg (259 lb) General Appearance: Well appearing, alert, in no acute distress, well-hydrated, well nourished.. Lungs: Lungs clear to auscultation. No wheezing, rhonchi, rales.. Heart: RRR without murmur, gallop, or rubs. No ectopy. Abdomen: Abdomen soft, non-distended. There is RUQ and epigastric tenderness with slight rebound pain but no guarding. Bowel sounds normal. No masses, or organomegaly. Health Maintenance List Covid-19 Vaccine(1) Never done BP Controlled (<130/80) Never done Mammogram Screening Never done Urine Albumin:Creatinine Ratio due on 03/24/2023 Diabetic Foot Exam due on 03/24/2023 Dilated Retinal Exam due on 04/03/2023 Influenza Vaccine(1) due on 07/14/2023 LDL Cholesterol due on 11/22/2023 HbA1C due on 11/30/2023 Annual PCP Team Chronic Disease Visit due on 08/30/2024 DTaP,Tdap,Td Vaccine(2 - Td or Tdap) due on 10/13/2024 Pneumococcal Vaccine(3 - PPSV23 or PCV20) due on 2047 Spirometry Completed Hepatitis C Screening Completed HPV Vaccine Aged Out Hepatitis B Vaccine Discontinued Pap Testing Discontinued HPV Testing Discontinued HIV Screening Discontinued Data reviewed Results US ABD RIGHT UPPER QUADRANT (Acc#[id number]) (Order [id number]) Patient Info Patient Name Sex Lukasz Diaz ([id number]) Female 1980 08/31/2023 12:03 PM - Radiology, [place] In Impression IMPRESSION: Mild increase in echogenicity of the liver. Status post cholecystectomy. Chef Manager: PSCB Transcribe Date/Time: Aug 31 2023 11:57A Dictated by : YANDY VEGA MD This examination was interpreted and the report reviewed and electronically signed by: YANDY VEGA MD on Aug 31 2023 12:01PM EST Results-Findings * * *Final Report* * * DATE OF EXAM: Aug 31 2023 11:42AM WRU 1032 - US ABD RIGHT UPPER QUADRANT / PROCEDURE REASON: multiple diagnoses * * * * Physician Interpretation * * * * EXAM TITLE: US ABD RIGHT UPPER QUADRANT, US ABD SPLEEN -NB HISTORY: Nausea and pain TECHNIQUE: Sonography of the right upper quadrant and spleen was performed. Images were obtained and stored in a permanent archive. MQ: [id number] COMPARISON: Ultrasound abdomen on 06/13/2014 RESULT: Limitations: Body habitus. Pancreas: Normal sonographic appearance in the visualized portions. Portions obscured: tail Liver: Echotexture: Grossly homogeneous Echogenicity: Mild increase in echogenicity. Decrease in penetration. Surface contour: Smooth Lesions: None. Biliary: No intrahepatic biliary duct dilation. CBD: 6 mm in diameter. Gallbladder: Surgically absent. Kidneys: Within normal limits, measuring 13.7 cm in length of the right kidney and 13.2 cm in length of the left kidney. Spleen: The spleen is normal in size, measuring 11.8 x 6.4 x 11.9 cm. No sonographic abnormalities seen. A/P ASSESSMENT/PLAN: 1. Epigastric pain - ICD9: 789.06, ICD10: R10.13 (primary diagnosis) - Begin treatment with Prilosec 40 mg QD Check - XR ABDOMEN 3V KUB W/OBLIQUES - CT ABD/PEL W IVCON - IV CONTRAST (RADIOLOGY PROCEDURE) - ENTERIC CONTRAST (RADIOLOGY PROCEDURE) - CREATININE BLD Consult Gastro 2. Bloating - ICD9: 787.3, ICD10: R14.0 Check - XR ABDOMEN 3V KUB W/OBLIQUES - CT ABD/PEL W IVCON - IV CONTRAST (RADIOLOGY PROCEDURE) - ENTERIC CONTRAST (RADIOLOGY PROCEDURE) - consult Gastro 3. Diarrhea, unspecified type - ICD9: 787.91, ICD10: R19.7 Check - XR ABDOMEN 3V KUB W/OBLIQUES - CT ABD/PEL W IVCON - IV CONTRAST (RADIOLOGY PROCEDURE) - ENTERIC CONTRAST (RADIOLOGY PROCEDURE) Consult gastro 4. Nausea - ICD9: 787.02, ICD10: R11.0 - start omeprazole 40 mg a day. Check - CT ABD/PEL W IVCON - IV CONTRAST (RADIOLOGY PROCEDURE) - ENTERIC CONTRAST (RADIOLOGY PROCEDURE) - consult gastro 5. Need for vaccination - ICD9: V05.9, ICD10: Z23 - INFLUENZA VACCINE, AGE 6 MO - 64 YR, QUADRIVALENT (AFLURIA, FLULAVAL, FLUZONE): given Requested Prescriptions Signed Prescriptions Disp Refills rosuvastatin (CRESTOR) 5 mg tablet 30 tablet 5 Sig: Take 1 tablet by mouth once daily. promethazine (PHENERGAN) 12.5 mg tablet 30 tablet 0 Sig: Take 1 tablet by mouth every 6 hours as needed. iv contrast (will be provided with radiology test) 1 Each 0 Sig: CT ABD/PEL -Inject, intravenously, once for 1 dose.No IV access, insert saline lock prior to the beginning of sedation, infusion, injection of imaging exam. Discontinue saline lock post exam. IfPt. has a central line or IVAD, may access for administration according to line specific nursing protocol. Once exam is complete flush line and de-access according to line specific nursing protocol in the CT contrast administration guidelines link. enteric contrast (will be provided with radiology test) 1 Each 0 Sig: For CT ABD/PEL W IVCON Routine order Administer, As Directed One Time Only, via Oral, Rectal, both Oral and Rectal, Enteric Tube, Stoma or Indwelling Catheter, Enteric Contrast as designated perenteric contrast guidelines omeprazole (PRILOSEC) 40 mg capsule 30 capsule 3 Sig: Take 1 capsule by mouth once daily. Will await studies. I spent a total of 35 minutes on the date of the service which included preparing to see the patient, [id number] patient care, completing clinical documentation, performing a medically appropriate examination, counseling and educating the patient/family/caregiver and ordering medications, tests, or procedures. Patient was asked at end of visit if they had any questions or input regarding the plan of care we had discussed. Francesco Mandujano MD documented in this encounterSy[facility] Center10-23-2023 Miscellaneous Notes* Telephone Encounter - Karen Nelson LPN - 09/04/2023 9:13 AM EDT Pt rescheduled for 5 pm today! Karen Nelson LPN * Telephone Encounter - Carmel Boone MA - 09/04/2023 8:16 AM EDT Left message for patient. Provider is not available Monday night but we have opened his scheduled for later today. Please contact me at [phone] if you need me to open the slot for later today. DR MANDUJANO ALSO THAT PATIENT COULD COME AT 1 TODAY. Please find out how the patient is doing. She saw Jazzy Posey last week for the same issue. Looks like blood work and US were completed. Carmel Boone MA documented in this encounterSycamore [facility] Center10-20-2023 Miscellaneous Notes* Telephone Encounter - Bharati Yeboah RN - 09/01/2023 4:23 PM EDT Pt called and is notified of providers message and instructions. Pt voices understanding. Bharati Yeboah RN * Telephone Encounter - Oumou Posey APRN.CNP - 09/01/2023 4:05 PM EDT Noted. Stay well hydrated. If unable to stay hydrated, she should proceed to ER. Oumou Posey APRN.STEFANIE * Telephone Encounter - Ventura Koenig LPN - 09/01/2023 3:51 PM EDT Pt notified. She states her symptoms are the same. Advised she could try Imodium for the diarrhea but ultimately her sx are due to her uncontrolled diabetes. Also advised pt that she needs to get sugars under control, pt responded with that's the least of my concerns right now. Ventura Koenig LPN * Telephone Encounter - Oumou Posey APRN.CNP - 09/01/2023 3:36 PM EDT Can please let patient know that I received most of her results back. So far, everything looks pretty stable. How are her symptoms? Is the nausea and diarrhea? She definitely can start an antidiarrheal (like imodium) if needed. Her A1C is up to 11.9 -- so definitely would encouraged better diabetes control. documented in this encounterSycamore [facility] Center10-19-2023 History of Present illness Narrative* Allyson Barron RT(R) - 08/31/2023 11:30 AM EDT Radiology Service Progress Note PATIENT NAME: Lukasz Diaz DATE OF SERVICE: August 31, 2023 TIME: 11:42 AM PATIENT IDENTITY VERIFICATION COMPLETED USING TWO (2) IDENTIFIERS: Name and Date of confirmedby patient verbally. FALL SCREENING: Has the patient had 2 falls in the last year or 1 fall with injury or currently using an Ambulatory Assistive Device (Walker, Cane, Wheelchair, Crutches, etc.)? No PATIENT GENDER DATA: Female. status: : No status: NO. PATIENT RELEVANT IMPLANT DATA REVIEWED: Not Applicable RADIOLOGY DEPARTMENT: Ultrasound PERIPHERAL IV DATA: Not applicable SIGNED BY: Allyson Barron Rdms August 31, 2023 11:42 AM documented in this encounterSycamore Medical Center10-18-2023 Instructions* Patient Instructions* Oumou Posey APRN.CNP - 08/30/2023 4:13 PM EDT Get additional labs. Get stool studies. Hold the metformin and start the insulin for now. Stay hydrated. Zofran every 6 hours as needed for nausea. Schedule ultrasound. To ER with any worsening/severe symptoms. documented in this encounterSycamore [facility] Center10-18-2023 History of Present illness Narrative* Oumou Posey APRN.CNP - 08/30/2023 3:42 PM EDT This is a 42 year old female who presents today with: Patient presents with: Recheck: Follow up from [facility]- continues with diarrhea that occurs after eating; stomach pain; has been consistent x3 weeks HISTORY OF PRESENT ILLNESS: Lukasz Diaz is a 42 year old female. Patient presents with: Recheck: Follow up from [facility]- continues with diarrhea that occurs after eating; stomach pain; has been consistent x3 weeks Pt presents today for urgent care follow-up. Refers that she has explosive diarrhea anytime she eats. + nausea. Refers that it has been going on for the last three weeks. No recent sickness. No fevers/chills. No other sick contacts. No known possibility of bad food/water. Has not had anything like this in the past. She was on antibiotics for a dental infection last month. Started with food aversions about three weeks ago. Started with nausea around the same time. + diarrhea. If she doesn't eat, will stool 1-2 times daily. She ate chicken soup on Monday and stooled about 10 times. Stools are watery and unformed. More pale than usual. No hematochezia/melena. She is tolerating liquids. Hx of [place]. 2005. Denies any similar symptoms in the past. She has hx of h pylori and c diff. Pt does have RA. Family hx of crohns. She has had EGD and colonoscopy in the past (2014) which showed mild chronic gastritis. Pt is diabetic. Had labs done in urgent care -- glucose > 400. She is taking trulicity and metformin. Reports never really started the insulin. PAST MEDICAL HISTORY: PAST MEDICAL HISTORY Diagnosis Date Abnormal glandular Papanicolaou smear of cervix 10/05/2010 Controlled type 2 diabetes mellitus without complication, without long-term current use of insulin ([facility]) 05/03/2016 Current use of proton pump inhibitor 11/15/2016 Mg checked 01/2017 DUB (dysfunctional uterine bleeding) 01/18/2013 Dyslipidemia 06/05/2014 Elevated LFTs 06/10/2015 Erythrocytosis 03/27/2022 Seen Hematology 09/2018 with neg w/u Essential hypertension with goal blood pressure less than 130/85 04/26/2016 Fatty liver 06/13/2014 Gastroesophageal reflux disease without esophagitis 06/10/2015 Resolved. Generalized anxiety disorder 01/02/2016 Hypomagnesemia 04/02/2019 Large breasts 08/23/2017 Had breast reduction 02/16/2018 Mild intermittent asthma without complication 11/15/2016 Moderate episode of recurrent major depressive disorder (HCC) 11/15/2016 Morbid obesity with body mass index (BMI) of 45.0 to 49.9 in adult ([facility]) 07/13/2017 Muscle spasm 08/23/2017 MVP (mitral valve prolapse) Neck pain on left side 08/23/2017 Obesity (BMI 30-39.9) 07/13/2017 PCOS (polycystic ovarian syndrome) 01/18/2013 PTSD (post-traumatic stress disorder) 01/02/2016 Pulmonary HTN ([facility]) Seeing Dr. Campbell Routine gynecological examination Sees Dr. Estrada Seronegative rheumatoid arthritis ([facility]) 07/26/2019 Seeing [facility] Suicidal behavior with attempted self-injury ([facility]) 08/19/2020 08/17/2020: overdose on muscle relaxors, Sent to inpatient unit [facility] Suicidal behavior with attempted self-injury ([facility]) 08/19/2020 08/17/2020: overdose on muscle relaxors, Sent to inpatient unit [facility] Type 2 diabetes mellitus with hyperglycemia, without long-term current use of insulin ([facility]) 05/03/2016 Vitamin D deficiency 02/21/2019 PAST SURGICAL HISTORY Procedure Laterality Date *STRESS TEST PC 02/2015 NL APPENDECTOMY 14y/o open case CARPAL TUNNEL [id number] COLONOSCOPY FLX DX W/COLLJ SPEC WHEN PFRMD 08/05/15 Colonoscopy out pt [facility] ESOPHAGOGASTRODUODENOSCOPY TRANSORAL DIAGNOSTIC 08/05/15 EGD out pt [facility] HYSTERECTOMY HX LAPAROSCOPY SURG CHOLECYSTECTOMY [id number] Cholecystectomy, lap PAST SURGICAL HISTORY OF 02/2014 right meniscus repair PAST SURGICAL HISTORY OF 01/18/2017 right medial meniscal tear repair PAST SURGICAL HISTORY OF 02/2018 breast reduction surgery PAST SURGICAL HISTORY OF Right meniscus repair ALLERGIES Lamictal [Lamotrigine], Toradol [Ketorolac], Zoloft [Sertraline Hcl], Actos [PioglitazoneHcl], Celexa [Citalopram], Eggs [Egg], Fenofibrate, Lipitor [Atorvastatin], Plaquenil [Hydroxychloroquine], Pravachol [Pravastatin Sodium], and Zocor [Simvastatin] MEDICATIONS Current Outpatient Medications Medication Sig nadolol (CORGARD) 40 mg tablet Take 1 tablet by mouth twice daily. dulaglutide (TRULICITY) 1.5 mg/0.5 mL pen injector Inject 1.5 mg subcutaneously one time a week. Inject once per week. Discard Pen After insulin glargine (LANTUS SOLOSTAR, BASAGLAR LUCITAIKPEN) 100 unit/mL (3 mL) Inject 10 Units subcutaneously daily at bedtime. Insulin Weston, Disposable, (PEN NEEDLE) 29 gauge x 1/2 Use one needle per dose. one per day blood sugar diagnostic (BLOOD GLUCOSE TEST) test strip Test blood sugar(s) 2 times daily. Dx: Type 2 DM - Uncontrolled E11.65 Insulin: yes rosuvastatin (CRESTOR) 5 mg tablet Take 1 tablet by mouth once daily. metFORMIN ER (GLUCOPHAGE XR) 500 mg 24 hr tablet Take 2 tablets by mouth twice daily. Lancets lancets Test blood sugar(s) 1 times daily. Dx: Type 2 DM - Uncontrolled E11.65 Insulin: No cholecalciferol, Vitamin D3, (VITAMIN D3) 1,250 mcg (50,000 unit) cap capsule Take 1 capsule by mouth one time a week. furosemide (LASIX) 20 mg tablet Take one tab by mouth as need when you have a 3 lb weight gain or more longer then two days. gabapentin (NEURONTIN) 600 mg tablet Take 1 tablet by mouth twice daily for 180 days. Per [facility] OLANZapine (ZYPREXA) 10 mg tablet Take 1 tablet by mouth daily at bedtime. [facility] prazosin (MINIPRESS) 1 mg cap Take 3 caps AT BEDTIME for Anxiety Current Facility-Administered Medications Medication Dose Route Frequency perflutren lipid microspheres 1.3 mL in NaCl (PF) 0.9% 10 mL injection (DEFINITY) INTRAVENOUS DIRECTED PRN sodium chloride 0.9 % (flush) 10 mL (BD POSIFLUSH) 10 mL INTRAVENOUS DIRECTED PRN FAMILY HISTORY Problem Relation Age of Onset other (Parkinson) Mother Diabetes Father Coronary Artery Disease Father 51 Breast Cancer Maternal Grandmother Heart Maternal Grandmother Diabetes Maternal Grandmother other (crohns) Sister Colon Cancer Maternal Uncle Heart Maternal Uncle Coronary Artery Disease Maternal Uncle first in late 30's Social History Tobacco Use Smoking status: Former Packs/day: 0.50 Years: 10.00 Additional pack years: 0.00 Total pack years: 5.00 Types: Cigarettes Quit date: 09/20/2012 Years since quittin.9 Smokeless tobacco: Never Tobacco comments: Father smoked in childhood home. Substance Use Topics Alcohol use: Not Currently Comment: 3-4 at time twice a year, mixed drinks Drug use: No EXAM: BP 110/80 Pulse 86 Resp 16 LMP 09/02/2015 SpO2 98% PHYSICAL EXAM: General Appearance: Well appearing, alert, in no acute distress, well-hydrated, well nourished.. Skin: Skin color, texture, turgor normal, no suspicious rashes or lesions. Head: Normocephalic, no masses, lesions, tenderness or abnormalities. Eyes: Anicteric sclera. Extraocular movements are intact. . Oropharynx: Lips, mucosa, and tongue normal, teeth and gums normal, oropharynx normal. Neck: Supple, no adenopathy; thyroid symmetric, normal size Lungs: Lungs clear to auscultation. No wheezing, rhonchi, rales.. Heart: RRR without murmur, gallop, or rubs. No ectopy. Abdomen: Abdomen soft. Generalized tenderness primarily in the epigastric area. Bowel sounds normal. No masses, organomegaly. Extremities: No deformities, edema, skin discoloration, clubbing or cyanosis. Good capillary refill. . Neurologic: Gait normal. ASSESSMENT/PLAN: 1. Epigastric pain - ICD9: 789.06, ICD10: R10.13 (primary diagnosis) Will get ultrasound. Check labs. Stay well hydrated. - CBC + DIFF - LIPASE BLD - H PYLORI AG BY EIA,STOOL - US ABD RIGHT UPPER QUADRANT 2. Type 2 diabetes mellitus with hyperglycemia, without long-term current use of insulin (HCC) - ICD9: 250.00, 790.29, ICD10: E11.65 - HGB A1C Uncontrolled. Aware of elevated glucose in urgent care and states that it is always like that. Brief discussion re: potential complications of uncontrolled diabetes. 3. Diarrhea, unspecified type - ICD9: 787.91, ICD10: R19.7 Get labs and stool studies. - HEPATIC FUNCTION PNL - BASIC METABOLIC PNL - MAGNESIUM BLD - TSH BLD - T4 FREE/FREE THYROX - SED RATE WESTERGREN - C-REACTIVE PROTEIN (CRP) - CBC + DIFF - LIPASE BLD - HGB A1C - NOROVIRUS GROUP 1 AND 2 - ENTERIC BACTERIAL PANEL BY PCR - CRYPTOSPORIDIUM AND GIARDIA ANTIGENS BY EIA - ROTAVIRUS AG BY EIA - C. DIFFICILE PCR - FECAL LACTOFERRIN/LEUKOCYTES - STOOL CULTURE/EIA - CALPROTECTIN,FECAL - H PYLORI AG BY EIA,STOOL - US ABD RIGHT UPPER QUADRANT - H PYLORI AG BY EIA,STOOL 4. Nausea - ICD9: 787.02, ICD10: R11.0 - ONDANSETRON 4 MG DISINTEGRATING TABLET Discussed with patient that if she gets any new/worsening symptoms, she should proceed to the ER. Discussed treatment plan and patient voices understanding. Patient's questions answered appropriately. Medications and potential side effects were discussed and patient voices understanding. Return to the office as scheduled or as needed for worsening/no improvement. Oumou Posey APRN.MAT MAN documented in this encounterSy[facility] Center10-16-[facility]23 History of Present illness Narrative* Francesco Porras APRN.STEFANIE - 08/28/2023 1:27 PM EDT Subjective HPI Nontoxic-appearing female presents urgent care chief complaint mild upper abdominal pain and loose stools. Duration of symptoms 3 weeks. Associated symptoms loose stools and transient abdominal pain.3 episodes of loose stools today. 10 episodes of loose stool yesterday. No blood in stool. Describes stool as watery. No mucus. Denies any recent lifestyle or medication changes. No antibiotic use 2 months ago. Has had gallbladder removed. Has had a hysterectomy. Denies any fevers productive cough chest pain shortness of breath vomiting dysuria. Has voided several times today. Is able to tolerateoral fluids. Did eat some solid food today. Past medical history prescription medication use allergies reviewed. .Patient presents with: Diarrhea: Mid upper abd pain x3 weeks PAST MEDICAL HISTORY Diagnosis Date Abnormal glandular Papanicolaou smear of cervix 10/05/2010 Controlled type 2 diabetes mellitus without complication, without long-term current use of insulin (HCC) 05/03/2016 Current use of proton pump inhibitor 11/15/2016 Mg checked 01/2017 DUB (dysfunctional uterine bleeding) 01/18/2013 Dyslipidemia 06/05/2014 Elevated LFTs 06/10/2015 Erythrocytosis 03/27/2022 Seen Hematology 09/2018 with neg w/u Essential hypertension with goal blood pressure less than 130/85 04/26/2016 Fatty liver 06/13/2014 Gastroesophageal reflux disease without esophagitis 06/10/2015 Resolved. Generalized anxiety disorder 01/02/2016 Hypomagnesemia 04/02/2019 Large breasts 08/23/2017 Had breast reduction 02/16/2018 Mild intermittent asthma without complication 11/15/2016 Moderate episode of recurrent major depressive disorder (HCC) 11/15/2016 Morbid obesity with body mass index (BMI) of 45.0 to 49.9 in adult ([facility]) 07/13/2017 Muscle spasm 08/23/2017 MVP (mitral valve prolapse) Neck pain on left side 08/23/2017 Obesity (BMI 30-39.9) 07/13/2017 PCOS (polycystic ovarian syndrome) 01/18/2013 PTSD (post-traumatic stress disorder) 01/02/2016 Pulmonary HTN ([facility]) Seeing Dr. Campbell Routine gynecological examination Sees Dr. Estrada Seronegative rheumatoid arthritis ([facility]) 07/26/2019 Seeing [facility] Suicidal behavior with attempted self-injury ([facility]) 08/19/2020 08/17/2020: overdose on muscle relaxors, Sent to inpatient unit [facility] Suicidal behavior with attempted self-injury ([facility]) 08/19/2020 08/17/2020: overdose on muscle relaxors, Sent to inpatient unit [facility] Type 2 diabetes mellitus with hyperglycemia, without long-term current use of insulin ([facility]) 05/03/2016 Vitamin D deficiency 02/21/2019 PAST SURGICAL HISTORY Procedure Laterality Date *STRESS TEST PC 02/2015 NL APPENDECTOMY 14y/o open case CARPAL TUNNEL [id number] COLONOSCOPY FLX DX W/COLLJ SPEC WHEN PFRMD 08/05/15 Colonoscopy out pt [facility] ESOPHAGOGASTRODUODENOSCOPY TRANSORAL DIAGNOSTIC 08/05/15 EGD out pt [facility] HYSTERECTOMY HX LAPAROSCOPY SURG CHOLECYSTECTOMY [id number] Cholecystectomy, lap PAST SURGICAL HISTORY OF 02/2014 right meniscus repair PAST SURGICAL HISTORY OF 01/18/2017 right medial meniscal tear repair PAST SURGICAL HISTORY OF 02/2018 breast reduction surgery PAST SURGICAL HISTORY OF Right meniscus repair ALLERGIES Lamictal [Lamotrigine], Toradol [Ketorolac], Zoloft [Sertraline Hcl], Actos [PioglitazoneHcl], Celexa [Citalopram], Eggs [Egg], Fenofibrate, Lipitor [Atorvastatin], Plaquenil [Hydroxychloroquine], Pravachol [Pravastatin Sodium], and Zocor [Simvastatin] MEDICATIONS blood sugar diagnostic (BLOOD GLUCOSE TEST) test strip^Test blood sugar(s) 2 times daily. Dx: Type 2 DM - Uncontrolled E11.65 Insulin: yes^Disp: 70 Strip^Rfl: 11 cholecalciferol, Vitamin D3, (VITAMIN D3) 1,250 mcg (50,000 unit) cap capsule^Take 1 capsule by mouth one time a week.^Disp: 12 capsule^Rfl: 3 dulaglutide (TRULICITY) 1.5 mg/0.5 mL pen injector^Inject 1.5 mg subcutaneously one time a week. Inject once per week. Discard Pen After^Disp: 4 Each^Rfl: 5 furosemide (LASIX) 20 mg tablet^Take one tab by mouth as need when you have a 3 lb weight gain or more longer then two days.^Disp: 30 tablet^Rfl: 5 gabapentin (NEURONTIN) 600 mg tablet^Take 1 tablet by mouth twice daily for 180 days. [facility]^Disp: ^Rfl: insulin glargine (LANTUS SOLOSTAR, BASAGLAR KWIKPEN) 100 unit/mL (3 mL)^Inject 10 Units subcutaneously daily at bedtime.^Disp: 5 Each^Rfl: 3 Insulin Weston, Disposable, (PEN NEEDLE) 29 gauge x 1/2^Use one needle per dose. one per day^Disp: 100 Each^Rfl: 11 Lancets lancets^Test blood sugar(s) 1 times daily. Dx: Type 2 DM - Uncontrolled E11.65 Insulin: No^Disp: 100 Each^Rfl: 11 metFORMIN ER (GLUCOPHAGE XR) 500 mg 24 hr tablet^Take 2 tablets by mouth twice daily.^Disp: 120 tablet^Rfl: 5 nadolol (CORGARD) 40 mg tablet^Take 1 tablet by mouth twice daily.^Disp: 60 tablet^Rfl: 5 OLANZapine (ZYPREXA) 10 mg tablet^Take 1 tablet by mouth daily at bedtime. [facility]^Disp: ^Rfl: prazosin (MINIPRESS) 1 mg cap^Take 3 caps AT BEDTIME for Anxiety^Disp: ^Rfl: rosuvastatin (CRESTOR) 5 mg tablet^Take 1 tablet by mouth once daily.^Disp: 30 tablet^Rfl: 5 FAMILY HISTORY Problem Relation Age of Onset other (Parkinson) Mother Diabetes Father Coronary Artery Disease Father 51 Breast Cancer Maternal Grandmother Heart Maternal Grandmother Diabetes Maternal Grandmother other (crohns) Sister Colon Cancer Maternal Uncle Heart Maternal Uncle Coronary Artery Disease Maternal Uncle first in late 30's Social History Tobacco Use Smoking status: Former Packs/day: 0.50 Years: 10.00 Additional pack years: 0.00 Total pack years: 5.00 Types: Cigarettes Quit date: 09/20/2012 Years since quittin.9 Smokeless tobacco: Never Tobacco comments: Father smoked in childhood home. Substance Use Topics Alcohol use: Not Currently Comment: 3-4 at time twice a year, mixed drinks Drug use: No BP 111/78 Pulse 80 Temp 36.4 C (97.6 F) Resp 18 Wt 116.4 kg (256 lb 9.6 oz) LMP 09/02/2015 SpO2 95% BMI 38.45 kg/m Review of Systems Constitutional: Negative for chills, fever and malaise/fatigue. HENT: Negative for congestion, ear discharge, ear pain, sinus pain and sore throat. Eyes: Negative for blurred vision, pain, discharge and redness. Respiratory: Negative for cough, hemoptysis, sputum production, shortness of breath, wheezing and stridor. Cardiovascular: Negative for chest pain. Gastrointestinal: Positive for abdominal pain, diarrhea and nausea. Negative for vomiting. Genitourinary: Negative. Musculoskeletal: Negative for myalgias. Skin: Negative for itching and rash. Neurological: Negative for dizziness and headaches. Objective Physical Exam Constitutional: General: She is not in acute distress. Appearance: She is not toxic-appearing. HENT: Head: Normocephalic. Nose: Nose normal. Mouth/Throat: Mouth: Mucous membranes are moist. Pharynx: Oropharynx is clear. Eyes: Pupils: Pupils are equal, round, and reactive to light. Cardiovascular: Rate and Rhythm: Normal rate. Pulmonary: Effort: Pulmonary effort is normal. No respiratory distress. Abdominal: Tenderness: There is no abdominal tenderness. There is no right CVA tenderness, left CVA tendernessor guarding. Musculoskeletal: Cervical back: Normal range of motion. Skin: General: Skin is warm and dry. Neurological: General: No focal deficit present. Mental Status: She is alert. ASSESSMENT/PLAN: 1. Diarrhea, unspecified type - ICD9: 787.91, ICD10: R19.7 - COMP METABOLIC PANEL - CBC + DIFF - OVA + PARA MICROSCOPIC - ENTERIC BACTERIAL PANEL BY PCR - C. DIFFICILE PCR Patient nontoxic-appearing. Vital signs within normal limits. No evidence of dehydration. No evidence of acute abdomen. Differentials include C. difficile, viral infection, Crohn's, colorectal cancer, parasitic infection, food intolerance ulcerative colitis. Stool studies will be obtained. CBC and CMP will be obtained. Red flags prompt reevaluation discussed. Follow-up with PCP as scheduled. Patient was educated on supportive therapies. Patient was instructed to immediately proceed to emergencyroom for any new, worsening, or symptoms lasting longer than anticipated. The patient's clinical presentation is otherwise unremarkable at this time. Based on exam and clinical finding, the patient is stable for discharge. Plan of care was discussed with patient. Patient verbalizes understanding and agrees to plan of care. This note was generated using TRANSCOR[employer] software. It may contain errors in wording, punctuation, or spelling. Francesco Porras APRN.STEFANIE documented in this encounterSycamore Medical Center09-11-2023 History of Present illness Narrative* Jose Raul Boone APRN.STEFANIE - 07/24/2023 5:47 PM EDT Images from the original note were not included. Subjective Patient came in with complaints of right lower tooth pain. Patient says she has a broken tooth and it gets infected on and off. Patient says she did try to have it removed at the dentist. Patient said he could not get it so she has to go to an oral surgeon. Patient denies any fever nausea vomiting. The history is provided by the patient. No traffic agent was used. Dental Problem Review of Systems Constitutional: Negative. Skin: Negative. Objective Physical Exam Constitutional: Appearance: Normal appearance. HENT: Mouth/Throat: Comments: Dental caries and broken tooth noted in the area marked above. No signs of drainage or swelling. Pulmonary: Effort: Pulmonary effort is normal. Neurological: Mental Status: She is alert. PAST MEDICAL HISTORY Diagnosis Date Abnormal glandular Papanicolaou smear of cervix 10/05/2010 Controlled type 2 diabetes mellitus without complication, without long-term current use of insulin (HCC) 05/03/2016 Current use of proton pump inhibitor 11/15/2016 Mg checked 01/2017 DUB (dysfunctional uterine bleeding) 01/18/2013 Dyslipidemia 06/05/2014 Elevated LFTs 06/10/2015 Erythrocytosis 03/27/2022 Seen Hematology 09/2018 with neg w/u Essential hypertension with goal blood pressure less than 130/85 04/26/2016 Fatty liver 06/13/2014 Gastroesophageal reflux disease without esophagitis 06/10/2015 Resolved. Generalized anxiety disorder 01/02/2016 Hypomagnesemia 04/02/2019 Large breasts 08/23/2017 Had breast reduction 02/16/2018 Mild intermittent asthma without complication 11/15/2016 Moderate episode of recurrent major depressive disorder (HCC) 11/15/2016 Morbid obesity with body mass index (BMI) of 45.0 to 49.9 in adult (HCC) 07/13/2017 Muscle spasm 08/23/2017 MVP (mitral valve prolapse) Neck pain on left side 08/23/2017 Obesity (BMI 30-39.9) 07/13/2017 PCOS (polycystic ovarian syndrome) 01/18/2013 PTSD (post-traumatic stress disorder) 01/02/2016 Pulmonary HTN ([facility]) Seeing Dr. Campbell Routine gynecological examination Sees Dr. Estrada Seronegative rheumatoid arthritis ([facility]) 07/26/2019 Seeing [facility] Suicidal behavior with attempted self-injury ([facility]) 08/19/2020 08/17/2020: overdose on muscle relaxors, Sent to inpatient unit [facility] Suicidal behavior with attempted self-injury ([facility]) 08/19/2020 08/17/2020: overdose on muscle relaxors, Sent to inpatient unit [facility] Type 2 diabetes mellitus with hyperglycemia, without long-term current use of insulin ([facility]) 05/03/2016 Vitamin D deficiency 02/21/2019 PAST SURGICAL HISTORY Procedure Laterality Date *STRESS TEST PC 02/2015 NL APPENDECTOMY 14y/o open case CARPAL TUNNEL [id number] COLONOSCOPY FLX DX W/COLLJ SPEC WHEN PFRMD 08/05/15 Colonoscopy out pt [facility] ESOPHAGOGASTRODUODENOSCOPY TRANSORAL DIAGNOSTIC 08/05/15 EGD out pt [facility] HYSTERECTOMY HX LAPAROSCOPY SURG CHOLECYSTECTOMY [id number] Cholecystectomy, lap PAST SURGICAL HISTORY OF 02/2014 right meniscus repair PAST SURGICAL HISTORY OF 01/18/2017 right medial meniscal tear repair PAST SURGICAL HISTORY OF 02/2018 breast reduction surgery PAST SURGICAL HISTORY OF Right meniscus repair ALLERGIES Lamictal [Lamotrigine], Toradol [Ketorolac], Zoloft [Sertraline Hcl], Actos [PioglitazoneHcl], Celexa [Citalopram], Eggs [Egg], Fenofibrate, Lipitor [Atorvastatin], Plaquenil [Hydroxychloroquine], Pravachol [Pravastatin Sodium], and Zocor [Simvastatin] MEDICATIONS nadolol (CORGARD) 40 mg tablet^Take 1 tablet by mouth twice daily.^Disp: 60 tablet^Rfl: 5 dulaglutide (TRULICITY) 1.5 mg/0.5 mL pen injector^Inject 1.5 mg subcutaneously one time a week. Inject once per week. Discard Pen After^Disp: 4 Each^Rfl: 5 insulin glargine (LANTUS SOLOSTAR, BASAGLAR KWIKPEN) 100 unit/mL (3 mL)^Inject 10 Units subcutaneously daily at bedtime.^Disp: 5 Each^Rfl: 3 Insulin Weston, Disposable, (PEN NEEDLE) 29 gauge x 1/2^Use one needle per dose. one per day^Disp: 100 Each^Rfl: 11 blood sugar diagnostic (BLOOD GLUCOSE TEST) test strip^Test blood sugar(s) 2 times daily. Dx: Type 2 DM - Uncontrolled E11.65 Insulin: yes^Disp: 70 Strip^Rfl: 11 rosuvastatin (CRESTOR) 5 mg tablet^Take 1 tablet by mouth once daily.^Disp: 30 tablet^Rfl: 5 metFORMIN ER (GLUCOPHAGE XR) 500 mg 24 hr tablet^Take 2 tablets by mouth twice daily.^Disp: 120 tablet^Rfl: 5 Lancets lancets^Test blood sugar(s) 1 times daily. Dx: Type 2 DM - Uncontrolled E11.65 Insulin: No^Disp: 100 Each^Rfl: 11 cholecalciferol, Vitamin D3, (VITAMIN D3) 1,250 mcg (50,000 unit) cap capsule^Take 1 capsule by mouth one time a week.^Disp: 12 capsule^Rfl: 3 furosemide (LASIX) 20 mg tablet^Take one tab by mouth as need when you have a 3 lb weight gain or more longer then two days.^Disp: 30 tablet^Rfl: 5 gabapentin (NEURONTIN) 600 mg tablet^Take 1 tablet by mouth twice daily for 180 days. [facility]^Disp: ^Rfl: OLANZapine (ZYPREXA) 10 mg tablet^Take 1 tablet by mouth daily at bedtime. [facility]^Disp: ^Rfl: prazosin (MINIPRESS) 1 mg cap^Take 3 caps AT BEDTIME for Anxiety^Disp: ^Rfl: amoxicillin (AMOXIL) 875 mg tablet^Take 1 tablet by mouth twice daily for 5 days.^Disp: 10 tablet^Rfl: 0 FAMILY HISTORY Problem Relation Age of Onset other (Parkinson) Mother Diabetes Father Coronary Artery Disease Father 51 Breast Cancer Maternal Grandmother Heart Maternal Grandmother Diabetes Maternal Grandmother other (crohns) Sister Colon Cancer Maternal Uncle Heart Maternal Uncle Coronary Artery Disease Maternal Uncle first in late 30's Social History Tobacco Use Smoking status: Former Packs/day: 0.50 Years: 10.00 Additional pack years: 0.00 Total pack years: 5.00 Types: Cigarettes Quit date: 09/20/2012 Years since quittin.8 Smokeless tobacco: Never Tobacco comments: Father smoked in childhood home. Substance Use Topics Alcohol use: Not Currently Comment: 3-4 at time twice a year, mixed drinks Drug use: No ASSESSMENT/PLAN: 1. Tooth infection - ICD9: 522.4, ICD10: K04.7 - AMOXICILLIN 875 MG TABLET Educated about proper use of medication supportive therapies. Patient will follow-up if signs and symptoms seem to be getting worse not better. Patient was okay with this care plan. Jose Raul Boone APRN.STEFANIE documented in this encounterSycamore Medical Center04-27-2023 Miscellaneous Notes* Telephone Encounter - Holly Domínguez LPN - 03/09/2023 6:57 PM EDT Patient has been identified by name and date of : Yes, Provider Dr. Mandujano Date 03/09/23 Time 6:58 pm Patient phones for refill(s): Requested Prescriptions Pending Prescriptions Disp Refills nadolol (CORGARD) 40 mg tablet 60 tablet 5 Sig: Take 1 tablet by mouth twice daily. Date of last office visit in primary care: 10/31/22 next apt 05/01/23 Last 2 Encounter Wt Readings: Date: Wt: 01/27/2023 122.5 kg (270 lb) 10/31/2022 122.5 kg (270 lb) Previous labs/tests for medication: Not applicable Thank you. Holly Domínguez LPN documented in this encounterSycamore Medical Center03-28-2023 Miscellaneous Notes* Telephone Encounter - Kylah Martin LPN - 02/07/2023 9:21 AM EDT Patient returned call and went over notes below from Dr Mandujano with understanding. * Telephone Encounter - Michelle Beaver Ma - 02/07/2023 8:33 AM EDT Left message for patient to call office back Michelle Beaver Ma * Telephone Encounter - Francesco Mandujano MD - 02/06/2023 4:21 PM EDT Let Lukasz know having a pulse ox of 90% or higher is normal. It would be concerning if dropping below 89%. I'm also suspecting that these symptoms may all be secondary to her depression and anxiety possibly being out of control again and should consider discussing with her psychiatrist as well. * Telephone Encounter - Carmel Boone MA - 02/06/2023 3:45 PM EDT Patient notified and voiced understanding. Patient indicated that no chest pain; but is still getting lightheaded and her o2 is dropping into the low 90's. Carmel Boone MA * Telephone Encounter - Francesco Mandujano MD - 02/06/2023 1:11 PM EDT Let patient know the US of her heart was normal. documented in this encounterSycamore Medical Center03-20-2023 History of Present illness Narrative* Kathie Nj LPN - 01/30/2023 11:54 AM EDT Scan on 01/27/2023 6:20 PM by External Provider: Miscellaneous Lab Scan on 01/27/2023 6:38 PM by External Provider: Miscellaneous Lab documented in this encounterSycamore Medical Center03-17-2023 History of Present illness Narrative* Francesco Mandujano MD - 01/27/2023 3:46 PM EDT Chief Complaint Patient presents with: ED Follow-up HPI Lukasz Diaz is a 42 year old female who presents here today for ER follow up. Patient was seen in [place] [facility] for left sided chest pain. Her ROS was completely normal except for the pain that she described as a shocking across her chest. Her chest x-ray, CBC, BMP, D-Dimer and Trop were all normal. Patient informs me she never had any palpitations like the [facility] ER report said and she did get shortness of breath with ambulation. She went to [place] ER about a week later due to pain being persistent and the continued CACERES. Patient has had episodes of being lightheaded and fell once before going to [facility] and again before gong to the [place] ER. Patient says while she was in [facility] ER her pulse Ox was between 87-92%. Patient had the pain again a few days after being seen at [facility] but none since. Still getting CACERES. Patient says she was told by [place] ER provider that she needs an US of her heart and that there was a finding on her chest x-ray. I do not have [place]'s ER records yet. I do have [facility] records. Patient says her weight is up 20 lbs from 3 weeks ago. Past medical history, appointments, medications, allergies reviewed. Previous Medical History PAST MEDICAL HISTORY Diagnosis Date Abnormal glandular Papanicolaou smear of cervix 10/05/2010 Controlled type 2 diabetes mellitus without complication, without long-term current use of insulin (HCC) 05/03/2016 Current use of proton pump inhibitor 11/15/2016 Mg checked 01/2017 DUB (dysfunctional uterine bleeding) 01/18/2013 Dyslipidemia 06/05/2014 Elevated LFTs 06/10/2015 Erythrocytosis 03/27/2022 Seen Hematology 09/2018 with neg w/u Essential hypertension with goal blood pressure less than 130/85 04/26/2016 Fatty liver 06/13/2014 Gastroesophageal reflux disease without esophagitis 06/10/2015 Resolved. Generalized anxiety disorder 01/02/2016 Hypomagnesemia 04/02/2019 Large breasts 08/23/2017 Had breast reduction 02/16/2018 Mild intermittent asthma without complication 11/15/2016 Moderate episode of recurrent major depressive disorder (HCC) 11/15/2016 Morbid obesity with body mass index (BMI) of 45.0 to 49.9 in adult (HCC) 07/13/2017 Muscle spasm 08/23/2017 MVP (mitral valve prolapse) Neck pain on left side 08/23/2017 Obesity (BMI 30-39.9) 07/13/2017 PCOS (polycystic ovarian syndrome) 01/18/2013 PTSD (post-traumatic stress disorder) 01/02/2016 Pulmonary HTN (HCC) Seeing Dr. Campbell Routine gynecological examination Sees Dr. Estrada Seronegative rheumatoid arthritis (HCC) 07/26/2019 Seeing [facility] Suicidal behavior with attempted self-injury ([facility]) 08/19/2020 08/17/2020: overdose on muscle relaxors, Sent to inpatient unit [facility] Suicidal behavior with attempted self-injury ([facility]) 08/19/2020 08/17/2020: overdose on muscle relaxors, Sent to inpatient unit [facility] Type 2 diabetes mellitus with hyperglycemia, without long-term current use of insulin ([facility]) 05/03/2016 Vitamin D deficiency 02/21/2019 Previous Surgical History PAST SURGICAL HISTORY Procedure Laterality Date *STRESS TEST PC 02/2015 NL APPENDECTOMY 14y/o open case CARPAL TUNNEL [id number] COLONOSCOPY FLX DX W/COLLJ SPEC WHEN PFRMD 08/05/15 Colonoscopy out pt [facility] ESOPHAGOGASTRODUODENOSCOPY TRANSORAL DIAGNOSTIC 08/05/15 EGD out pt [facility] HYSTERECTOMY HX LAPAROSCOPY SURG CHOLECYSTECTOMY [id number] Cholecystectomy, lap PAST SURGICAL HISTORY OF 02/2014 right meniscus repair PAST SURGICAL HISTORY OF 01/18/2017 right medial meniscal tear repair PAST SURGICAL HISTORY OF 02/2018 breast reduction surgery PAST SURGICAL HISTORY OF Right meniscus repair Family History FAMILY HISTORY Problem Relation Age of Onset other (Parkinson) Mother Diabetes Father Coronary Artery Disease Father 51 Breast Cancer Maternal Grandmother Heart Maternal Grandmother Diabetes Maternal Grandmother other (crohns) Sister Colon Cancer Maternal Uncle Heart Maternal Uncle Coronary Artery Disease Maternal Uncle first in late 30's Patient Allergies ALLERGIES Allergen Reactions Lamictal [Lamotrigi* Other: See Comments Made her suicidal Toradol [Ketorolac] Shortness of Breath Elevates BP; dyspnea Zoloft [Sertraline * Other: See Comments suicidal. Actos [Pioglitazone* Other: See Comments Sweats and chills Celexa [Citalopram] Intolerance Electrical shock feelings Eggs [Egg] GI Upset Fenofibrate GI Upset Lipitor [Atorvastat* Myalgia Plaquenil [Hydroxyc* Other: See Comments GI upset and pain Pravachol [Pravasta* GI Upset Zocor [Simvastatin] Myalgia Current Medications Current Outpatient Medications on File Prior to Visit Medication Sig dulaglutide (TRULICITY) 1.5 mg/0.5 mL pen injector Inject 1.5 mg subcutaneously one time a week. Inject once per week. Discard Pen After insulin glargine (LANTUS SOLOSTAR, BASAGLAR KWIKPEN) 100 unit/mL (3 mL) Inject 10 Units subcutaneously daily at bedtime. Insulin [place], Disposable, (PEN NEEDLE) 29 gauge x 1/2 Use one needle per dose. one per day blood sugar diagnostic (BLOOD GLUCOSE TEST) test strip Test blood sugar(s) 2 times daily. Dx: Type 2 DM - Uncontrolled E11.65 Insulin: yes rosuvastatin (CRESTOR) 5 mg tablet Take 1 tablet by mouth once daily. metFORMIN ER (GLUCOPHAGE XR) 500 mg 24 hr tablet Take 2 tablets by mouth twice daily. nadolol (CORGARD) 40 mg tablet Take 1 tablet by mouth twice daily. Lancets lancets Test blood sugar(s) 1 times daily. Dx: Type 2 DM - Uncontrolled E11.65 Insulin: No cholecalciferol, Vitamin D3, (VITAMIN D3) 1,250 mcg (50,000 unit) cap capsule Take 1 capsule by mouth one time a week. furosemide (LASIX) 20 mg tablet Take one tab by mouth as need when you have a 3 lb weight gain or more longer then two days. OLANZapine (ZYPREXA) 10 mg tablet Take 1 tablet by mouth daily at bedtime. [facility] prazosin (MINIPRESS) 1 mg cap Take 3 caps AT BEDTIME for Anxiety gabapentin (NEURONTIN) 600 mg tablet Take 1 tablet by mouth twice daily for 180 days. Per [facility] No current facility-administered medications on file prior to visit. Social History Social History Tobacco Use Smoking status: Former Packs/day: 0.50 Years: 10.00 Pack years: 5.00 Types: Cigarettes Quit date: 09/20/2012 Years since quittin.3 Smokeless tobacco: Never Tobacco comments: Father smoked in childhood home. Substance Use Topics Alcohol use: Not Currently Comment: 3-4 at time twice a year, mixed drinks Drug use: No Review of Symptoms REVIEW OF SYSTEMS See HPI EXAM: BP 122/92 (BP Site: Right Arm, BP Position: Sitting, BP Cuff Size: Large Adult) Pulse 79 Temp 36.6 C (97.9 F) (Tympanic) Wt 122.5 kg (270 lb) LMP 09/02/2015 SpO2 96% BMI 40.46 kg/m General Appearance: Well appearing, alert, in no acute distress, well-hydrated, well nourished. andMorbidly obese. Neck: Supple, no adenopathy; thyroid symmetric, normal size, no bruits. Lungs: Lungs clear to auscultation. No wheezing, rhonchi, rales.. Heart: RRR without murmur, gallop, or rubs. No ectopy. Abdomen: Normal abdominal exam, Abdomen soft, non-tender. Bowel sounds normal. No masses, organomegaly. Extremities: No deformities, edema, skin discoloration, clubbing or cyanosis. Good capillary refill. . Peripheral Pulses: Normal. Walking around our [place] with pulse oximeter on her, Sat started at 97% and went down to 91% and then back up to 97-98%. No significant CACERES. Health Maintenance List BP CONTROLLED (<130/80) Never done MAMMOGRAM Never done COVID-19 VACCINE(1) due on 03/24/2023 HBA1C due on 02/20/2023 URINE ALBUMIN:CREATININE RATIO due on 03/24/2023 DIABETIC FOOT EXAM due on 03/24/2023 DILATED RETINAL EXAM due on 04/03/2023 ANNUAL PCP TEAM CHRONIC DISEASE VISIT due on 10/31/2023 LDL CHOLESTEROL due on 11/22/2023 DTAP,TDAP,TD(2 - Td or Tdap) due on 10/13/2024 PNEUMOCOCCAL(3 - PPSV23 if available, else PCV20) due on 2047 SPIROMETRY Completed INFLUENZA Completed HEPATITIS C SCREENING Completed HEPATITIS B Discontinued PAP TESTING Discontinued HPV TESTING Discontinued HIV SCREENING Discontinued Data reviewed : [facility] ER report from 01/18/2023. A/P ASSESSMENT/PLAN: 1. Chest pain, unspecified type - ICD9: 786.50, ICD10: R07.9 (primary diagnosis) Check - ECHO - PERFLUTREN LIPID MICROSPHERES 1.1 MG/ML INJECTION IN NS 10 ML - SODIUM CHLORIDE 0.9 % (FLUSH) INJECTION SYRINGE - EXERCISE STRESS ECG (WITHOUT IMAGING) - NT PRO BNP - D-DIMER 2. CACERES (dyspnea on exertion) - ICD9: 786.09, ICD10: R06.09 Check - ECHO - PERFLUTREN LIPID MICROSPHERES 1.1 MG/ML INJECTION IN NS 10 ML - SODIUM CHLORIDE 0.9 % (FLUSH) INJECTION SYRINGE - EXERCISE STRESS ECG (WITHOUT IMAGING) - NT PRO BNP - D-DIMER Will get ER records from [facility] ER visit. Francesco Mandujano MD I spent a total of 30 minutes on the date of the service which included preparing to see the patient, [id number] patient care, completing clinical documentation, performing a medically appropriate examination, counseling and educating the patient/family/caregiver and ordering medications, tests, or procedures. Records received from [facility]: chest x-ray was unremarkable. Per report no evidence of CHF, pericarditis, Coronary ischemia, pleural effusion, pneumothorax or pneumonia. CBC showed slightly elevated WBC Hgb and Hct with no left shift, similar to past CBC's and seen by hematology. D-dimer was neg. UA showed spillage of glucose. CMP was ok with persistent elevation of LFT's dur to fatty liver disease and slightly low sodium that is normal when corrected for glucose elevation. ER did not fellan emergent 2D echo was needed and advised one a a out patient with regards to her past Hx. [facility] Miscellaneous Notes* Telephone Encounter - Francesco Mandujano MD - 01/21/2023 6:36 PM EST Noted. * Telephone Encounter - Bharati Yeboah RN - 01/21/2023 9:40 AM EST Pt was calling in about an ER f/u, she reports she has been in twice this last week for chest pain and the last time her BS was 450. Pt is scheduled on 01/[address] Mandujano and wanted an earlier appointment. I told her I could get her in with Dr Mandujano on Monday at 9 am or Maral SILVA on Monday. She wanted to see if she could get in with another provider sooner, I said they like for you to stay with your provider since they know your history. The Pt hung up on me. documented in this [facility]Sy[facility]23 Hospital Discharge instructions Patient Education 01/20/2023 21:01:02 Chest Pain, Uncertain Cause Uncertain Causes of Chest Pain Chest pain can happen for a number of reasons. Sometimes the cause can't be determined. If your condition does not seem serious, and your pain does not appear to be coming from your heart, your healthcare provider may recommend watching it closely. Sometimes the signs of a serious problem take moretime to appear. Many problems not related to your heart can cause chest pain. These include: Musculoskeletal. Costochondritis is an inflammation of the tissues around the ribs that can occur from trauma or overuse injuries, or a strain of the muscles of the chest wall Respiratory. Pneumonia, collapsed lung (pneumothorax), or inflammation of the lining of the chest and lungs (pleurisy) Gastrointestinal. Esophageal reflux, heartburn, ulcers, or gallbladder disease Anxiety and panic disorders Nerve compression and inflammation Rare miscellaneous problems such as aortic aneurysm (a swelling of the large artery coming out of the heart) or pulmonary embolism (a blood clot in the lungs) Home care After your visit, follow these recommendations: Rest today and avoid strenuous activity. Take any prescribed medicine as directed. Be aware of any recurrent chest pain and notice any changes Follow-up care Follow up with your healthcare provider if you do not start to feel better within 24 hours, or as advised. Call 911 Call 911 if any of these occur: A change in the type of pain: if it feels different, becomes more severe, lasts longer, or begins to spread into your shoulder, arm, neck, jaw or back Shortness of breath or increased pain with breathing Weakness, dizziness, or fainting Rapid heart beat Crushing sensation in your chest When to seek medical advice Call your healthcare provider right away if any of the following occur: Cough with dark colored sputum (phlegm) or blood Fever of 100.4 F (38 C) or higher, or as directed by your healthcare provider Swelling, pain or redness in one leg [id number] [employer]. [address] [place] [address], [place] [address]. All rights reserved. This information is not intended as a substitute for professional medical care. Always follow yourhealthcare professional's instructions. Follow Up Care 01/20/2023 17:11:07 With:FRANCESCO MANDUJANO MD Address: [address] [place] [address]- When:5 to 7 days [facility] 03-10-2023 Note Discharge Instructions Thank you for allowing [facility] to assist you with your healthcare needs. The following is importantdischarge information regarding your hospital visit. Diagnosis from Today's Visit Left sided chest pain Shortness of breath Chest pain - Pleuritic What to Do Next Instructions from Your Care Team May take 1000mg of Tylenol every 6 hours or 800mg of Motrin (ibuprofen) every 8 hours as needed forpain. Please follow up with your PCP, watch for development of skin rash on your chest, discuss getting an outpatient ECHO. 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 No qualifying data available. Post Acute Orders No qualifying data available. You Need to Schedule the Following Appointments Follow Up with FRANCESCO MANDUJANO MD When Within 5 to 7 days Where: [address] [place] [address]- Allergies Aleve Bleach (Skin irritation, Skin breakdown) Natural Vegetable Laxative Tape, Paper Toradol ibuprofen penicillin Medications Please ask your primary doctor or pharmacist before taking any other medication not listed, including over the counter drugs, herbal medications, vitamins and or supplements as they may interact withyour home medications. What How Much When Instructions Last Dose Unchanged dulaglutide (Trulicity Pen) Subcutaneous Every week Unchanged furosemide (furosemide 40 mg oral tablet) 1 tab(s) by mouth Every other day Unchanged furosemide (Lasix 80 mg oral tablet) 1 tab(s) by mouth Every other day Unchanged hydrOXYzine (hydrOXYzine pamoate 50 mg oral capsule) 1 cap by mouth Four (4) times a day as needed for as needed for anxiety Unchanged isosorbide mononitrate (Imdur use isosorbide mononitrate ) by mouth Unchanged metFORMIN (MetFORMIN (Eqv-Glucophage XR) 500 mg oral tablet, EXTENDED RELEASE) 1 tab(s) by mouth Once a day Unchanged metFORMIN (metFORMIN 500 mg oral tablet, extended release) 2 tab(s) by mouth Two (2) times a day Unchanged nadolol (nadolol 40 mg oral tablet) 1 tab(s) by mouth Two (2) times a day Unchanged OLANZapine (OLANZapine 10 mg oral tablet) 1 tab(s) by mouth Every day Unchanged prazosin (prazosin 1 mg oral capsule) 1 cap by mouth Two (2) times a day Unchanged spironolactone (spironolactone 50 mg oral tablet) 1 tab(s) by mouth Once a day Unchanged topiramate (topiramate 100 mg oral tablet) 1 tab(s) by mouth Two (2) times a day Please take this list to your next doctor s visit. Bring all medications you take, including over the counter medications, herbals and other supplements with you to your doctor s visit. Patients and families are reminded to discard old lists and to update any records with all medication providers or retail pharmacies. Education Materials Uncertain Causes of Chest Pain Chest pain can happen for a number of reasons. Sometimes the cause can't be determined. If your condition does not seem serious, and your pain does not appear to be coming from your heart, your healthcare provider may recommend watching it closely. Sometimes the signs of a serious problem take moretime to appear. Many problems not related to your heart can cause chest pain. These include: Musculoskeletal. Costochondritis is an inflammation of the tissues around the ribs that can occur from trauma or overuse injuries, or a strain of the muscles of the chest wall Respiratory. Pneumonia, collapsed lung (pneumothorax), or inflammation of the lining of the chest and lungs (pleurisy) Gastrointestinal. Esophageal reflux, heartburn, ulcers, or gallbladder disease Anxiety and panic disorders Nerve compression and inflammation Rare miscellaneous problems such as aortic aneurysm (a swelling of the large artery coming out of the heart) or pulmonary embolism (a blood clot in the lungs) Home care After your visit, follow these recommendations: Rest today and avoid strenuous activity. Take any prescribed medicine as directed. Be aware of any recurrent chest pain and notice any changes Follow-up care Follow up with your healthcare provider if you do not start to feel better within 24 hours, or as advised. Call 911 Call 911 if any of these occur: A change in the type of pain: if it feels different, becomes more severe, lasts longer, or begins to spread into your shoulder, arm, neck, jaw or back Shortness of breath or increased pain with breathing Weakness, dizziness, or fainting Rapid heart beat Crushing sensation in your chest When to seek medical advice Call your healthcare provider right away if any of the following occur: Cough with dark colored sputum (phlegm) or blood Fever of 100.4 F (38 C) or higher, or as directed by your healthcare provider Swelling, pain or redness in one leg [id number] [employer]. [address] [place] [address]. All rights reserved. This information is not intended as a substitute for professional medical care. Always follow yourhealthcare professional's instructions. Additional Information VACCINATE! IT SAVES LIVES! Members of the community who have not yet received the COVID-19 vaccine and would like to receive it can visit one of [facility] vaccine clinics. There are many vaccine clinic locations within the [facility]. For locations and available times, please visit www.gettheshot.coronavirus.[place].gov/. It is important to note that some COVID mobile vaccine clinics are held outdoors and may be canceled in rainy or stormy conditions. To learn more about pediatric vaccinations (ages 5-11), we invite you to visit the [facility] webpage. [email or web address].[email or web address].[email or web address]/pages/[email or web address]-Misrspobovm-Hzetwqkwof-[email or web address]-Dhs stions.htmlTo learn more about the COVID-19 vaccine, we invite you to visit the CDC website for a list of frequently asked questions. https://www.cdc.gov/coronavirus/2019-ncov/vaccines/faq.html [facility] Patient Portal Access Instructions: Stay connected with your healthcare team and access your personal medical information anytime with the [facility] Patient Portal. If you would like a full copy of your medical records please contact the [facility] Medical Records Department Monday through Monday between 8a.m. and 4:30p.m. Please follow the directions below to access the portal: 1.Access the email account you provided upon registration to the [facility].2.Look for an invitation email from [facility].3.Open the email and access the invitation link: Accept Invitation to [facility]4.Fill in the required beck to create your account. Sign into www.[employer] with your username and password that you created in the above steps to stay up to date. You can then view a summary of results, a summary of your visits, and the ability to download your summaries to your computer or send the information securely to a physician. Remember that your healthcare information is confidential, so carefully consider who you will allow to register on the [facility] Patient Portal for access to your information. You can also access the [facility] Patient Portal on the [employer]. Simply click on Health Records under Affirm and then click on the [employer] logo. HOW TO SAFELY DISPOSE OF PRESCRIPTION MEDICATIONS Please use one of the following methods to safely dispose of your unused medications. 1.Use a drug disposal kit: the drug disposal pouch allows you to safely discard your old and unuseddrugs. Ask your nurse to give you one when you are discharged.2.Visit a local take-back location: Many local pharmacies and police departments have programs that collect old and unwanted prescriptiondrugs. Call your local pharmacy or go to http://bit.ly/1T2Ww9y to find one close to you.3.Make use of household items: Use cat litter or old coffee grounds to dispose medications if other options arenot available. Mix your drugs with these household products, seal them in an airtight container andthrow it into the garbage. Call [facility]: [phone] to be sure your drugs can be disposed of in this way. Some medicines may require a different approach.4.Never flush your medications down the toilet. IF YOU HAVE BEEN PRESCRIBED AN OPIOIDS FOR PAIN If you have been prescribed an opioid (such as hydrocodone, oxycodone or morphine), it is critical to understand the possible side effects and risks of opioid pain medications. Even when taken as directed, opioids can have several side effects including: Tolerance, meaning you might need to take more of a medication for the same pain relief. Nausea, vomiting and/or constipation. Sleepiness, dizziness, dry mouth, confusion, depression or itching. Physical dependence, meaning you have withdrawal symptoms when a medication is stopped ? this can develop within a few days. KNOW YOUR RESPONSIBILITIES It is important to know exactly how much and how often to take the opioid pain medications you are prescribed. Never take opioids in higher amounts or more often than prescribed. Do not combine opioids with alcohol or other drugs that cause drowsiness, such as benzodiazepines, also known as benzos,including diazepam and alprazolam, muscle relaxants or sleep aids. Never sell or share prescriptionopioids. This is illegal. Store opioids in a secure place and out of reach of others (including children, family, friends and visitors). The last page(s) of this document has been signed and retained as a CHART COPY Signatures Patient Education Materials Chest Pain, Uncertain Cause Medication Leaflets My discharge plan and instructions have been reviewed and explained to me and IJOE MEGAN L understand my current condition and have read and understand these discharge instructions. I have received a written copy of the plan/instructions. If I have questions, I am aware that I should contact my doctor. Patient/Child Care Center Administrator Signature: Date/Time: Relationship to Patient: Witness Name/Signature: Date/Time: [facility]03-10-2023 Note ORIGINAL EXAMINATION: TWO XRAY VIEWS OF THE CHEST01/20/2023 5:52 pm COMPARISON: 02/16/2018 HISTORY: ORDERING SYSTEM PROVIDED HISTORY: Reason for Exam: Chest pain FINDINGS: The cardiomediastinal silhouette is stable. There is no pulmonary vascular congestion. There is no focal consolidation. No pleural effusion. No pneumothorax. No acute osseous abnormality by radiograph. IMPRESSION: No acute cardiopulmonary process. I have personally reviewed the images of this examination and agree with the resident's findings and interpretation. Interpreted by: Colleen Pichardo Preliminary Report By: Carter Perkins Electronically signed By Colleen Pichardo Dictated Date: 01/20/2023 6:22:31 PM Prelim Date: 01/20/2023 6:24:41 PM Sign Date: 01/20/2023 7:04:32 PM Ordering Provider: [facility]03-10-2023 Note ORIGINAL EXAMINATION: TWO XRAY VIEWS OF THE CHEST01/20/2023 5:52 pm COMPARISON: 02/16/2018 HISTORY: ORDERING SYSTEM PROVIDED HISTORY: Reason for Exam: Chest pain FINDINGS: The cardiomediastinal silhouette is stable. There is no pulmonary vascular congestion. There is no focal consolidation. No pleural effusion. No pneumothorax. No acute osseous abnormality by radiograph. IMPRESSION: No acute cardiopulmonary process. I have personally reviewed the images of this examination and agree with the resident's findings and interpretation. Interpreted by: Colleen Pichardo Preliminary Report By: Carter Perkins Electronically signed By Colleen Pichardo Dictated Date: 01/20/2023 6:22:31 PM Prelim Date: 01/20/2023 6:24:41 PM Sign Date: 01/20/2023 7:04:32 PM Ordering Provider: [facility] 01-19-2023 History of Present illness Narrative* Kathie Nj LPN - 01/19/2023 2:47 PM EST Please see [facility] reports: Scan on 01/18/2023 5:07 PM by External Provider: X-ray Scan on 01/18/2023 11:19 PM by External Provider: Consultation - Emergency Medicine Beronica Nj LPN documented in this [facility]23 Miscellaneous Notes* Telephone Encounter - Pearl Gill LPN - 12/15/2022 1:57 PM EST Patient has been identified by name and date of : Yes Patient phones for refill(s): Requested Prescriptions Pending Prescriptions Disp Refills dulaglutide (TRULICITY) 1.5 mg/0.5 mL pen injector 4 Each 5 Sig: Inject 1.5 mg subcutaneously one time a week. Inject once per week. Discard Pen After Date of last office visit in primary care: 10/31/2022 Next appt 05/01/2023 Please advise. Thank you. Pearl Gill LPN documented in this [facility]Sy[facility]01-27-2023 Miscellaneous Notes* Telephone Encounter - Michelle Beaver Ma - 12/09/2022 11:59 AM EST Spoke to melanieRealiet since Pa should not be needed for lantus or baslagar. Pharmacist advised whoever helped patient did not run It for name brand or would of seen approved. I called patient to let justin PA needed Michelle Beaver Ma * Telephone Encounter - Pamela Slaughter RN - 12/09/2022 11:28 AM EST PRIOR AUTHORIZATION Medication for Prior Authorization: Lantus Insurance Company: [employer] Patient insurance ID number: [id number] Pamela Slaughter RN documented in this [facility]Sy[facility]01-17-2023 Miscellaneous Notes* Telephone Encounter - Maral Moreno PA-C - 11/29/2022 2:03 PM EST Done. * Telephone Encounter - Thuan Cool RN - 11/29/2022 1:49 PM EST Phoned patient and given provider's message below with verbalized understanding. Patient asking pcpto send rx for test strips to [facility]. Pended. * Telephone Encounter - Francesco Mandujano MD - 11/29/2022 1:32 PM EST Let patient know I will start her on generic for lantus 10 units before bed. In two weeks I need anupdate on the last 4 days of fasting blood sugars and 2 hrs after her larges meal so I can see whatchanges may need to be made. The following approved medication requests have been transmitted electronically. Requested Prescriptions Signed Prescriptions Disp Refills rosuvastatin (CRESTOR) 5 mg tablet 30 tablet 5 Sig: Take 1 tablet by mouth once daily. Authorizing Provider: FRANCESCO MANDUJANO insulin glargine (LANTUS SOLOSTAR, BASAGLAR KWIKPEN) 100 unit/mL (3 mL) 5 Each 3 Sig: Inject 10 Units subcutaneously daily at bedtime. Authorizing Provider: FRANCESCO MANDUJANO Insulin Weston, Disposable, (PEN NEEDLE) 29 gauge x 1/2 100 Each 11 Sig: Use one needle per dose. one per day Authorizing Provider: FRANCESCO MANDUJANO MD * Telephone Encounter - Selma Vazquez RN - 11/29/2022 1:24 PM EST Patient returned call and states yes, she does know how to draw up and give herself insulin, as well as has experience with insulin pens with her mother. Requesting insulin be called into [facility], if provider agreeable. Selma Vazquez RN * Telephone Encounter - Michelle Beaver Ma - 11/29/2022 8:13 AM EST Left message for patient to call office back Michelle Beaver Ma * Telephone Encounter - Francesco Mandujano MD - 11/28/2022 8:12 PM EST Find out from patient if she nows how to draw up and give herself insulin. If not thjen seeing the Pharm D can help her with this education and making changes. Sometimes they just do phone call apptswith patient's to addresses changes. * Telephone Encounter - Holly Domínguez LPN - 11/28/2022 1:47 PM EST Spoke with pt and information listed below given. Pt verbalizes understanding. *pt agrees to take the Crestor every day *pt does not want to meet with Pharm D. She though you would just call in insulin. Please advise pt. Holly Domínguez LPN * Telephone Encounter - Carmel Boone MA - 11/28/2022 8:59 AM EST Left message for patient to contact office for results and instructions. Carmel Boone MA * Telephone Encounter - Francesco Mandujano MD - 11/27/2022 12:24 PM EST Let patient know Vit D, electrolytes and kidney functions were ok. Her CBC showed stable elevated hemoglobin. Her white blood cell count is elevated and may be secondary to a URI> order placed to repeat in a month. Lipid panel showed Trigs elevated at 256 (goa<150), HDL low at 38 (goal>50) and LDL just slightly elevated at 103 (goal<100). Her liver functions are still elevated and most likely secondary to fatty deposition into the liver. See if she will increase the Crestor to 5 mg every day. If so I will send in a new script. Her A1c is high at 11.7% (goal<7%). See if willing to start seeing our pharm D provider to help improve control? documented [facility] Instructions* Patient Instructions* Francesco Mandujano MD - 10/31/2022 11:11 AM EST Please get labs and urine test done on or after 04/21/2023 prior to your next visit. documented in this encounterSycam[facility]12-19-2022 History of Present illness Narrative* Francesco Mandujano MD - 10/31/2022 10:50 AM EST Chief Complaint Patient presents with: F/U 6 months HPI Lukasz Diaz is a 41 year old female who presents here today for 6 month follow up. Patient with hx of DM 2, HTN, Dyslipidemia, mild asthma, Vit D def, GERD that has resolved since treatment for H. Pylori, HENRY as well as those reviewed and addressed below and in ROS. Emotionally feeling good. [facility]. Taking her meds. Past medical history, appointments, medications, allergies reviewed. Previous Medical History PAST MEDICAL HISTORY Diagnosis Date Abnormal glandular Papanicolaou smear of cervix 10/05/2010 Controlled type 2 diabetes mellitus without complication, without long-term current use of insulin (HCC) 05/03/2016 Current use of proton pump inhibitor 11/15/2016 Mg checked 01/2017 DUB (dysfunctional uterine bleeding) 01/18/2013 Dyslipidemia 06/05/2014 Elevated LFTs 06/10/2015 Erythrocytosis 03/27/2022 Seen Hematology 09/2018 with neg w/u Essential hypertension with goal blood pressure less than 130/85 04/26/2016 Fatty liver 06/13/2014 Gastroesophageal reflux disease without esophagitis 06/10/2015 Resolved. Generalized anxiety disorder 01/02/2016 Hypomagnesemia 04/02/2019 Large breasts 08/23/2017 Had breast reduction 02/16/2018 Mild intermittent asthma without complication 11/15/2016 Moderate episode of recurrent major depressive disorder (HCC) 11/15/2016 Morbid obesity with body mass index (BMI) of 45.0 to 49.9 in adult ([facility]) 07/13/2017 Muscle spasm 08/23/2017 MVP (mitral valve prolapse) Neck pain on left side 08/23/2017 Obesity (BMI 30-39.9) 07/13/2017 PCOS (polycystic ovarian syndrome) 01/18/2013 PTSD (post-traumatic stress disorder) 01/02/2016 Pulmonary HTN ([facility]) Seeing Dr. Campbell Routine gynecological examination Sees Dr. Estrada Seronegative rheumatoid arthritis ([facility]) 07/26/2019 Seeing [facility] Suicidal behavior with attempted self-injury ([facility]) 08/19/2020 08/17/2020: overdose on muscle relaxors, Sent to inpatient unit [facility] Suicidal behavior with attempted self-injury ([facility]) 08/19/2020 08/17/2020: overdose on muscle relaxors, Sent to inpatient unit [facility] Type 2 diabetes mellitus with hyperglycemia, without long-term current use of insulin ([facility]) 05/03/2016 Vitamin D deficiency 02/21/2019 Previous Surgical History PAST SURGICAL HISTORY Procedure Laterality Date *STRESS TEST PC 02/2015 NL APPENDECTOMY 14y/o open case CARPAL TUNNEL [id number] COLONOSCOPY FLX DX W/COLLJ SPEC WHEN PFRMD 08/05/15 Colonoscopy out pt [facility] ESOPHAGOGASTRODUODENOSCOPY TRANSORAL DIAGNOSTIC 08/05/15 EGD out pt [facility] HYSTERECTOMY HX LAPAROSCOPY SURG CHOLECYSTECTOMY [id number] Cholecystectomy, lap PAST SURGICAL HISTORY OF 02/2014 right meniscus repair PAST SURGICAL HISTORY OF 01/18/2017 right medial meniscal tear repair PAST SURGICAL HISTORY OF 02/2018 breast reduction surgery PAST SURGICAL HISTORY OF Right meniscus repair Family History FAMILY HISTORY Problem Relation Age of Onset other (Parkinson) Mother Diabetes Father Coronary Artery Disease Father 51 Breast Cancer Maternal Grandmother Heart Maternal Grandmother Diabetes Maternal Grandmother other (crohns) Sister Colon Cancer Maternal Uncle Heart Maternal Uncle Coronary Artery Disease Maternal Uncle first in late 30's Patient Allergies ALLERGIES Allergen Reactions Lamictal [Lamotrigi* Other: See Comments Made her suicidal Toradol [Ketorolac] Shortness of Breath Elevates BP; dyspnea Zoloft [Sertraline * Other: See Comments suicidal. Actos [Pioglitazone* Other: See Comments Sweats and chills Celexa [Citalopram] Intolerance Electrical shock feelings Eggs [Egg] GI Upset Fenofibrate GI Upset Lipitor [Atorvastat* Myalgia Plaquenil [Hydroxyc* Other: See Comments GI upset and pain Pravachol [Pravasta* GI Upset Zocor [Simvastatin] Myalgia Current Medications Current Outpatient Medications on File Prior to Visit Medication Sig cholecalciferol, Vitamin D3, (VITAMIN D3) 1,250 mcg (50,000 unit) cap capsule Take 1 capsule by mouth one time a week. rosuvastatin (CRESTOR) 5 mg tablet Take 1 tablet by mouth every other day. metFORMIN ER (GLUCOPHAGE XR) 500 mg 24 hr tablet Take 2 tablets by mouth twice daily. dulaglutide (TRULICITY) 1.5 mg/0.5 mL pen injector Inject 1.5 mg subcutaneously one time a week. Inject once per week. Discard Pen After furosemide (LASIX) 20 mg tablet Take one tab by mouth as need when you have a 3 lb weight gain or more longer then two days. nadolol (CORGARD) 40 mg tablet Take 1 tablet by mouth twice daily. OLANZapine (ZYPREXA) 10 mg tablet Take 1 tablet by mouth daily at bedtime. [facility] blood sugar diagnostic (BLOOD GLUCOSE TEST) test strip Test blood sugar(s) 4 times daily. Dx: Type 2 DM - Uncontrolled E11.65 Insulin: No prazosin (MINIPRESS) 1 mg cap Take 3 caps AT BEDTIME for Anxiety Insulin Weston, Disposable, (PEN NEEDLE) 29 gauge x 1/2 ndle Use one needle per dose. 4 per day spironolactone (ALDACTONE) 50 mg tablet Take 1 tablet by mouth once daily. (Patient not taking: Reported on 03/24/2022 ) hydrOXYzine pamoate (VISTARIL) 50 mg capsule Take 1 capsule by mouth daily at bedtime. [facility] (Patient not taking: Reported on 10/31/2022) isosorbide mononitrate ER (IMDUR) 30 mg 24 hr tablet Take 1 tablet by mouth daily every morning. (Patient not taking: Reported on 03/24/2022 ) gabapentin (NEURONTIN) 600 mg tablet Take 1 tablet by mouth twice daily for 180 days. [facility] promethazine (PHENERGAN) 12.5 mg tablet Take 1 tablet by mouth every 6 hours as needed. (Patient not taking: Reported on 03/24/2022 ) topiramate (TOPAMAX) 100 mg tablet Take 1.5 tabs twice a day per [facility] (Patient not taking: Reported on 10/31/2022) methotrexate sodium/PF (METHOTREXATE LPF INJECTION) 0.8 mL by INJECTION(UNSPECIFIED PARENTERAL ROUTES) route one time a week. (Patient not taking: Reported on 03/24/2022 ) No current facility-administered medications on file prior to visit. Social History Social History Tobacco Use Smoking status: Former Packs/day: 0.50 Years: 10.00 Pack years: 5.00 Types: Cigarettes Quit date: 09/20/2012 Years since quittin.1 Smokeless tobacco: Never Tobacco comments: Father smoked in childhood home. Substance Use Topics Alcohol use: Not Currently Comment: 3-4 at time twice a year, mixed drinks Drug use: No Review of Symptoms REVIEW OF SYSTEMS GENERAL: No weight loss, malaise or fevers NECK: Negative for lumps, goiter, pain and significant neck swelling RESPIRATORY: Negative for cough, hemoptysis, wheezing, COPD, dyspnea or shortness of breath CARDIOVASCULAR: Negative for chest pain, leg swelling, hypertension, CHF or palpitations GI: No nausea, vomiting, or diarrhea and No heartburn or reflux symptoms : No history of dysuria,blood ENDOCRINE: Negative for symptoms of low BS's NEURO: No history of headaches, syncope, paralysis, seizures or tremors EXAM: BP 116/82 (BP Site: Left Arm, BP Position: Sitting, BP Cuff Size: Large Adult) Pulse 76 Resp 16 Wt 122.5 kg (270 lb) LMP 09/02/2015 BMI 40.46 kg/m Last 6 Encounter Wt Readings: Date: Wt: 10/31/2022 122.5 kg (270 lb) 03/24/2022 117.5 kg (259 lb) 09/29/2020 115.7 kg (255 lb) 02/12/2020 115.2 kg (254 lb) 11/04/2019 123.8 kg (273 lb) 07/22/2019 121.1 kg (267 lb) General Appearance: Well appearing, alert, in no acute distress, well-hydrated, well nourished. andMorbidly obese. Eyes: Anicteric sclera. Pupils are equally round and reactive to light. Extraocular movements are intact. . Neck: Supple, no adenopathy; thyroid symmetric, normal size, no bruits. Lungs: Lungs clear to auscultation. No wheezing, rhonchi, rales.. Heart: RRR without murmur, gallop, or rubs. No ectopy. Abdomen: Normal abdominal exam, Abdomen soft, non-tender. Bowel sounds normal. No masses, organomegaly. Extremities: No deformities, edema, skin discoloration, Good capillary refill. . Musculoskeletal: Muscular strength intact. Peripheral Pulses: Normal. Neurologic: Gait normal. Reflexes normal and symmetric. Sensation to light touch and crainal nerves2-12 intact.. Health Maintenance List HEPATITIS B(1 of 3 - 3-dose series) Never done DILATED RETINAL EXAM Never done SHINGRIX VACCINE(1 of 2) Never done HBA1C due on 06/24/2022 INFLUENZA(1) due on 07/14/2022 COVID-19 VACCINE(1) due on 03/24/2023 URINE ALBUMIN:CREATININE RATIO due on 03/24/2023 LDL CHOLESTEROL due on 03/24/2023 DIABETIC FOOT EXAM due on 03/24/2023 ANNUAL PCP TEAM CHRONIC DISEASE VISIT due on 03/24/2023 BP CONTROLLED (<130/80) due on 03/24/2023 DTAP,TDAP,TD(2 - Td or Tdap) due on 10/13/2024 PNEUMOCOCCAL(4 - PPSV23 if available, else PCV20) due on 2047 SPIROMETRY Completed HEPATITIS C SCREENING Completed PAP TESTING Discontinued HPV TESTING Discontinued HIV SCREENING Discontinued Data reviewed Component Latest Ref Rng & Units 03/24/2022 WBC 3.70 - 11.00 k/uL 8.80 RBC 3.90 - 5.20 m/uL 5.44 (H) Hemoglobin 11.5 - 15.5 g/dL 16.2 (H) Hematocrit 36.0 - 46.0 % 48.3 (H) MCV 80.0 - 100.0 fL 88.8 MCH 26.0 - 34.0 pg 29.8 MCHC 30.5 - 36.0 g/dL 33.5 RDW-CV 11.5 - 15.0 % 11.7 Platelet Count 150 - 400 k/uL 243 MPV 9.0 - 12.7 fL 12.2 Neut% % 58.7 Abs Neut (ANC) 1.45 - 7.50 k/uL 5.17 Lymph% % 30.0 Abs Lymph 1.00 - 4.00 k/uL 2.64 [place]% % 9.1 Abs [place] <0.87 k/uL 0.80 Eosin% % 1.3 Abs Eosin <0.46 k/uL 0.11 Baso% % 0.6 Abs Baso <0.11 k/uL 0.05 Immature Gran % % 0.3 IMMATURE GRANS (ABS) <0.10 k/uL 0.03 NRBC /100 WBC 0.0 Absolute nRBC <0.01 k/uL <0.01 DTYPE Auto Protein, Total 6.3 - 8.0 g/dL 8.0 Albumin 3.9 - 4.9 g/dL 4.3 Calcium 8.5 - 10.2 mg/dL 9.6 Bilirubin, Total 0.2 - 1.3 mg/dL 0.5 Alkaline Phosphatase 34 - 123 U/L 117 AST 13 - 35 U/L 37 (H) ALT 7 - 38 U/L 40 (H) Glucose 74 - 99 mg/dL 335 (H) BUN 7 - 21 mg/dL 14 Creatinine 0.58 - 0.96 mg/dL 0.50 (L) Sodium 136 - 144 mmol/L 134 (L) Potassium 3.7 - 5.1 mmol/L 4.7 Chloride 97 - 105 mmol/L 96 (L) CO2 22 - 30 mmol/L 24 Anion Gap 9 - 18 mmol/L 14 eGFR >=60 mL/min/1.73m 123 Color Yellow Yellow Clarity Clear Clear Glucose, Urine Negative 3+ (A) Bilirubin, Urine Negative Negative Ketones, Urine Negative Trace (A) Specific Cory, Ur 1.005 - 1.030 1.037 (H) Hemoglobin/Blood,Ur Negative Negative pH, Urine 5.0 - 8.0 6.0 Protein, Urine Negative Negative Urobilinogen Negative Negative Nitrites Negative Negative Leukest Negative Negative WBC, Urine 0-5 /HPF 0-5 /HPF RBC, Urine 0-3 /HPF 0-3 /HPF Epithelial Cells /HPF Few Budding Yeast None Seen /HPF Few (A) Total Cholesterol, Nonfasting <200 mg/dL 261 (H) Triglycerides, Nonfasting <150 mg/dL 294 (H) HDL Cholesterol, Nonfasting >39 mg/dL 39 (L) LDL Cholesterol, Nonfasting <100 mg/dL 163 (H) Non HDL Cholesterol, Nonfasting <130 mg/dL 222 (H) VLDL Cholesterol, Nonfasting <30 mg/dL 59 (H) Total Chol/HDL Ratio, Nonfasting <5.10 mg/dL 6.69 (H) LDL/HDL Ratio, Nonfasting <2.54 mg/dL 4.18 (H) Creatinine, Ur Random (UCRR) 20.0 - 300.0 mg/dL 103.8 Albumin, Urine Random mg/L <12.0 Albumin/Creat Ratio <30 mg/g <12 Hemoglobin A1C 4.3 - 5.6 % 11.9 (H) Estimated Average Glucose mg/dL 295 Vitamin D 25 Hydroxy 31.0 - 80.0 ng/mL 17.8 (L) Magnesium 1.7 - 2.3 mg/dL 1.9 A/P ASSESSMENT/PLAN: 1. Type 2 diabetes mellitus with hyperglycemia, without long-term current use of insulin (HCC) - ICD9: 250.00, 790.29, ICD10: E11.65 (primary diagnosis) - will await labs to see if changes needed. - Continue current medications - Encouraged regular aerobic exercise and weight loss - BP goal of <130/80 - LDL goal of <100 Check - HGB A1C - COMP METABOLIC PANEL - LIPID PANEL, NONFASTING - CBC + DIFF 2. Essential hypertension with goal blood pressure less than 130/85 - ICD9: 401.9, ICD10: I10 - good control - Continue current medication(s) - Recommended regular aerobic exercise. - Recommend home blood pressure monitoring, to bring results in on next visit - Goal of BP <130/80 Check - COMP METABOLIC PANEL - LIPID PANEL, NONFASTING 3. Mild intermittent asthma without complication - ICD9: 493.90, ICD10: J45.20 Mild intermittent Asthma stable - Avoidance of triggers recommended 4. Dyslipidemia - ICD9: 272.4, ICD10: E78.5 - to be determined upon return of lab results - Encouraged following a low fat, low cholesterol diet. - Discussed the benefits of regular aerobic exercise and weight loss. - Encouraged following a low carbohydrate, healthy oil intake diet. - Continue current therapy. Check - COMP METABOLIC PANEL - LIPID PANEL, NONFASTING 5. Pulmonary HTN (HCC) - ICD9: 416.8, ICD10: I27.20 - stable cont: - NADOLOL 40 MG TABLET 6. Moderate episode of recurrent major depressive disorder (HCC) - ICD9: 296.32, ICD10: F33.1 - [facility]. 7. PTSD (post-traumatic stress disorder) - ICD9: 309.81, ICD10: F43.10 - as per #6 8. Generalized anxiety disorder - ICD9: 300.02, ICD10: F41.1 - asper #6 9. Seronegative rheumatoid arthritis (HCC) - ICD9: 714.0, ICD10: M06.00 - stopped seeing Rheum 10. Vitamin D deficiency - ICD9: 268.9, ICD10: E55.9 Check - VITAMIN D 25 HYDROXY 11. Hypomagnesemia - ICD9: 275.2, ICD10: E83.42 - last labs were normal. No changes. 12. Obesity (BMI 30-39.9) - ICD9: 278.00, ICD10: E66.9 Weight increasing - Behavioral intervention 13. Encounter for immunization - ICD9: V03.89, ICD10: Z23 - INFLUENZA VACCINE QUADRIVALENT 6 MO - 64 YRS IM: given F/u 6 months WAE check CMP, Lipid, UA, A1c, CBC, Vit D and Mg prior Francesco Mandujano MD documented in this encounter[facility]05-[facility]-2022 Miscellaneous Notes* Telephone Encounter - Karely Moses LPN - 03/31/2022 10:25 AM EDT Pt requesting a copy of her diagnoses. 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 Karely Moses LPN documented in this encounterSycam[facility]05-12-2022 History of Present illness Narrative* Francesco Mandujano MD - 03/24/2022 11:20 AM EDT Chief Complaint Patient presents with: Physical HPI Lukasz Diaz is a 41 year old female who presents here today for Physical. Patient with hx of DM 2, HTN, Dyslipidemia, mild asthma, Vit D def, GERD that has resolved since treatment for H. Pylori, HENRY as well as those reviewed and addressed below and in ROS. Patient has not been taking medication since before winter (about 4 months ago). Patient started toget tired with taking all her meds and stopped a lot of them. Past medical history, appointments, medications, allergies reviewed. Previous Medical History PAST MEDICAL HISTORY Diagnosis Date Abnormal glandular Papanicolaou smear of cervix 10/05/2010 Controlled type 2 diabetes mellitus without complication, without long-term current use of insulin ([facility]) 05/03/2016 Current use of proton pump inhibitor 11/15/2016 Mg checked 01/2017 DUB (dysfunctional uterine bleeding) 01/18/2013 Dyslipidemia 06/05/2014 Elevated LFTs 06/10/2015 Essential hypertension with goal blood pressure less than 130/85 04/26/2016 Fatty liver 06/13/2014 Gastroesophageal reflux disease without esophagitis 06/10/2015 Resolved. Generalized anxiety disorder 01/02/2016 Hypomagnesemia 04/02/2019 Large breasts 08/23/2017 Had breast reduction 02/16/2018 Mild intermittent asthma without complication 11/15/2016 Moderate episode of recurrent major depressive disorder ([facility]) 11/15/2016 Morbid obesity with body mass index (BMI) of 45.0 to 49.9 in adult ([facility]) 07/13/2017 Muscle spasm 08/23/2017 MVP (mitral valve prolapse) Neck pain on left side 08/23/2017 Obesity (BMI 30-39.9) 07/13/2017 PCOS (polycystic ovarian syndrome) 01/18/2013 PTSD (post-traumatic stress disorder) 01/02/2016 Pulmonary HTN ([facility]) Seeing Dr. Campbell Routine gynecological examination Sees Dr. Estrada Seronegative rheumatoid arthritis ([facility]) 07/26/2019 Seeing [facility] Suicidal behavior with attempted self-injury ([facility]) 08/19/2020 08/17/2020: overdose on muscle relaxors, Sent to inpatient unit [facility] Type 2 diabetes mellitus with hyperglycemia, without long-term current use of insulin ([facility]) 05/03/2016 Vitamin D deficiency 02/21/2019 Previous Surgical History PAST SURGICAL HISTORY Procedure Laterality Date *STRESS TEST PC 02/2015 NL APPENDECTOMY 14y/o open case CARPAL TUNNEL [id number] COLONOSCOP W/ OR W/O [email or web address] SPEC 08/05/15 Colonoscopy out pt [facility] EGD W/O OR W/BRUSH/WASH 08/05/15 EGD out pt [facility] HYSTERECTOMY HX LAPAROSCOPIC CHOLEYCYSTECTOMY [id number] Cholecystectomy, lap PAST SURGICAL HISTORY OF 02/2014 right meniscus repair PAST SURGICAL HISTORY OF 01/18/2017 right medial meniscal tear repair PAST SURGICAL HISTORY OF 02/2018 breast reduction surgery PAST SURGICAL HISTORY OF Right meniscus repair Family History FAMILY HISTORY Problem Relation Age of Onset other (Parkinson) Mother Diabetes Father Coronary Artery Disease Father 51 Breast Cancer Maternal Grandmother Heart Maternal Grandmother Diabetes Maternal Grandmother other (crohns) Sister Colon Cancer Maternal Uncle Heart Maternal Uncle Coronary Artery Disease Maternal Uncle first in late 30's Patient Allergies ALLERGIES Allergen Reactions Lamictal [Lamotrigi* Other: See Comments Made her suicidal Toradol [Ketorolac] Shortness of Breath Elevates BP; dyspnea Zoloft [Sertraline * Other: See Comments suicidal. Actos [Pioglitazone* Other: See Comments Sweats and chills Celexa [Citalopram] Intolerance Electrical shock feelings Eggs [Egg] GI Upset Fenofibrate GI Upset Lipitor [Atorvastat* Myalgia Plaquenil [Hydroxyc* Other: See Comments GI upset and pain Pravachol [Pravasta* GI Upset Zocor [Simvastatin] Myalgia Current Medications Current Outpatient Medications on File Prior to Visit Medication Sig nadolol (CORGARD) 40 mg tablet Take 1 tablet by mouth twice daily. spironolactone (ALDACTONE) 50 mg tablet Take 1 tablet by mouth once daily. metFORMIN ER (GLUCOPHAGE XR) 500 mg 24 hr tablet Take 2 tablets by mouth twice daily. hydrOXYzine pamoate (VISTARIL) 50 mg capsule Take 1 capsule by mouth daily at bedtime. [facility] isosorbide mononitrate ER (IMDUR) 30 mg 24 hr tablet Take 1 tablet by mouth daily every morning. gabapentin (NEURONTIN) 600 mg tablet Take 1 tablet by mouth twice daily for 180 days. Per [facility] OLANZapine (ZYPREXA) 10 mg tablet Take 1 tablet by mouth daily at bedtime. [facility] blood sugar diagnostic (BLOOD GLUCOSE TEST) test strip Test blood sugar(s) 4 times daily. Dx: Type 2 DM - Uncontrolled E11.65 Insulin: No dulaglutide (TRULICITY) 1.5 mg/0.5 mL pen injector Inject 1.5 mg subcutaneously one time a week. Inject once per week. Discard Pen After promethazine (PHENERGAN) 12.5 mg tablet Take 1 tablet by mouth every 6 hours as needed. topiramate (TOPAMAX) 100 mg tablet Take 1.5 tabs twice a day per [facility] prazosin (MINIPRESS) 1 mg cap Take 3 caps AT BEDTIME for Anxiety furosemide (LASIX) 40 mg tablet Take two tabs by mouth one day and 1 tab by mouth the next and continue to alternate daily. methotrexate sodium/PF (METHOTREXATE LPF INJECTION) 0.8 mL by INJECTION(UNSPECIFIED PARENTERAL ROUTES) route one time a week. Insulin Weston, Disposable, (PEN NEEDLE) 29 gauge x 1/2 ndle Use one needle per dose. 4 per day No current facility-administered medications on file prior to visit. Social History Social History Tobacco Use Smoking status: Former Smoker Packs/day: 0.50 Years: 10.00 Pack years: 5.00 Types: Cigarettes Quit date: 09/20/2012 Years since quittin.5 Smokeless tobacco: Never Used Tobacco comment: Father smoked in childhood home. Substance Use Topics Alcohol use: Not Currently Comment: 3-4 at time twice a year, mixed drinks Drug use: No Review of Symptoms REVIEW OF SYSTEMS GENERAL: No weight loss, malaise or fevers HEENT: Negative for frequent or significant headaches, No changes in hearing or vision, no nose bleeds or other nasal problems NECK: Negative for lumps, goiter, pain and significant neck swelling RESPIRATORY: Negative for cough, hemoptysis, wheezing, COPD, dyspnea or shortness of breath CARDIOVASCULAR: Negative for chest pain, hypertension, CHF or palpitations. Noting swelling in legsand abdomin. GI: No nausea, vomiting, or diarrhea, No heartburn or reflux symptoms and no blood : No history of dysuria, blood MUSCULOSKELETAL: Negative for new joint pain or swelling, back pain or muscle pain SKIN: Negative for lesions, rash, and itching PSYCH: managed per psych HEMATOLOGY/LYMPHOLOGY: Negative for prolonged bleeding, bruising easily or swollen nodes ENDOCRINE: Negative for cold or heat intolerance, polyuria, polydipsia and goiter. Has not checked any sugars at home. NEURO: No history of headaches, syncope, paralysis, seizures or tremors EXAM: BP 102/76 (BP Site: Left Arm, BP Position: Sitting, BP Cuff Size: Regular Adult) Pulse 72 Resp 16 Ht 174 cm (5' 8.5) Wt 117.5 kg (259 lb) LMP 09/02/2015 BMI 38.81 kg/m Last 5 Encounter Wt Readings: Date: Wt: 03/24/2022 117.5 kg (259 lb) 09/29/2020 115.7 kg (255 lb) 02/12/2020 115.2 kg (254 lb) 11/04/2019 123.8 kg (273 lb) 07/22/2019 121.1 kg (267 lb) General Appearance: Well appearing, alert, in no acute distress, well-hydrated, well nourished. andObese. Skin: Skin color, texture, turgor normal, no suspicious rashes or lesions. Head: Normocephalic, no masses, lesions, tenderness or abnormalities. Eyes: Anicteric sclera. Pupils are equally round and reactive to light. Extraocular movements are intact. . Ears: External ears normal, Rt canal clear. Lt canal blocked with wax Neck: Supple, no adenopathy; thyroid symmetric, normal size, no bruits. Lungs: Lungs clear to auscultation. No wheezing, rhonchi, rales.. Heart: RRR without murmur, gallop, or rubs. No ectopy. Abdomen: Normal abdominal exam, Abdomen soft, non-tender. Bowel sounds normal. No masses, organomegaly. Extremities: No deformities, edema, skin discoloration, clubbing or cyanosis. Musculoskeletal: . Muscular strength intact, No joint swelling, deformity, or tenderness. Peripheral Pulses: Normal. Neurologic: Gait normal. Reflexes normal and symmetric. Sensation to light touch and crainal nerves2-12 intact.. Health Maintenance List COVID-19 VACCINE(1) Never done DILATED RETINAL EXAM Never done HIV SCREENING Never done BP CONTROLLED (<130/80) Never done DIABETIC FOOT EXAM due on 05/17/2019 HBA1C due on 02/03/2020 URINE ALBUMIN:CREATININE RATIO due on 11/04/2020 LDL CHOLESTEROL due on 11/04/2020 ANNUAL PCP TEAM CHRONIC DISEASE VISIT due on 03/19/2022 INFLUENZA(Season Ended) due on 07/14/2022 DTAP,TDAP,TD(2 - Td or Tdap) due on 10/13/2024 SPIROMETRY Completed ONE PNEUMOVAX PRIOR TO AGE 65 Completed HEPATITIS C SCREENING Completed MENINGOCOCCAL CONJUGATE Aged Out PAP TESTING Discontinued HPV TESTING Discontinued Data reviewed A/P ASSESSMENT/PLAN: 1. Well adult exam - ICD9: V70.0, ICD10: Z00.00 (primary diagnosis) - Counseled on healthy diet and regular exercise - Calcium intake with supplements or by diet of 1000 mg/day for under 50, 1200- 1500 mg/day for 50+ - Discussed need and benefit for weight loss. BMI 38.81 kg/(m^2) - Patient was counseled [id number] by myself (the billing provider) for the following immunizations and vaccine components, including side effects: Pneumococcal Prev-23. Patient consents for immunization and understands risks and benefits. A VIS sheet on each immunization was given to the patient. - Follow up for annual exam in one year 2. Encounter for gynecological examination without abnormal finding - ICD9: V72.31, ICD10: Z01.419 - Seeing [employer] 3. Type 2 diabetes mellitus with hyperglycemia, without long-term current use of insulin (HCC) - ICD9: 250.00, 790.29, ICD10: E11.65 Will await labs fredo determine next step in [place]. - Encouraged regular aerobic exercise and weight loss - Discussed diabetic education issues of diet and importance of exercise with patient. - BP goal of <130/80 - LDL goal of <100 Check - ALBUMIN/CREAT RATIO RND UR - COMP METABOLIC PANEL - HGB A1C - URINALYSIS, WITH MICROSCOPIC - LIPID PANEL, NONFASTING - CBC + DIFF 4. Essential hypertension with goal blood pressure less than 130/85 - ICD9: 401.9, ICD10: I10 - good control - Continue current medication(s) - Recommended regular aerobic exercise. - Recommend home blood pressure monitoring, to bring results in on next visit - Goal of BP <130/80 Check - COMP METABOLIC PANEL - URINALYSIS, WITH MICROSCOPIC - LIPID PANEL, NONFASTING 5. Dyslipidemia - ICD9: 272.4, ICD10: E78.5 - to be determined upon return of lab results - Encouraged following a low fat, low cholesterol diet. - Discussed the benefits of regular aerobic exercise and weight loss. - Encouraged following a low carbohydrate, healthy oil intake diet. Check - COMP METABOLIC PANEL - URINALYSIS, WITH MICROSCOPIC - LIPID PANEL, NONFASTING 6. Mild intermittent asthma without complication - ICD9: 493.90, ICD10: J45.20 Mild intermittent Asthma stable - Avoidance of triggers recommended 7. Pulmonary HTN (HCC) - ICD9: 416.8, ICD10: I27.20 - Was released by cardio. No current issues. 8. Seronegative rheumatoid arthritis (HCC) - ICD9: 714.0, ICD10: M06.00 - Patient needs to get back in with Rheum 9. Moderate episode of recurrent major depressive disorder (HCC) - ICD9: 296.32, ICD10: F33.1 - Management per Psych 10. Generalized anxiety disorder - ICD9: 300.02, ICD10: F41.1 - As per #9 11. PTSD (post-traumatic stress disorder) - ICD9: 309.81, ICD10: F43.10 - As per #9 12. Vitamin D deficiency - ICD9: 268.9, ICD10: E55.9 Check - VITAMIN D 25 HYDROXY 13. Obesity (BMI 30-39.9) - ICD9: 278.00, ICD10: E66.9 Weight increasing - Behavioral intervention - Some is water retention. Restart PRN lasix. 14. Hypomagnesemia - ICD9: 275.2, ICD10: E83.42 - check Mg 15. Fatty liver - ICD9: 571.8, ICD10: K76.0 Check - LIPID PANEL, NONFASTING 16. Elevated LFTs - ICD9: 790.6, ICD10: R79.89 check - COMP METABOLIC PANEL 17. Medication management - ICD9: V58.69, ICD10: Z79.899 - Check CBC 18. Need for vaccination - ICD9: V05.9, ICD10: Z23 - PNEUMOCOCCAL IMMUNIZATION PPSV 23: given 19. Impacted cerumen of left ear - ICD9: 380.4, ICD10: H61.22 Discussed irrigation with wam water. Verbal consent provided. left ear were irrigated with warm water for the removal of wax per nursing. Patient tolerated well. Signed Prescriptions Disp Refills furosemide (LASIX) 20 mg tablet 30 tablet 5 Sig: Take one tab by mouth as need when you have a 3 lb weight gain or more longer then two days. EDNA: No F/u 6 months routine Francesco Mandujano MD [facility] Miscellaneous Notes* Telephone Encounter - Francesco Mandujano MD - 01/31/2022 1:43 PM EDT The following approved medication requests have been transmitted electronically. Signed Prescriptions Disp Refills nadolol (CORGARD) 40 mg tablet 60 tablet 5 Sig: Take 1 tablet by mouth twice daily. EDNA: No Authorizing Provider: FRANCESCO MANDUJANO MD * Telephone Encounter - Basia Ann Ma - 01/31/2022 12:26 PM EDT Last office visit: 03/19/21 F/u scheduled: 03/24/22 Basia Ann Ma documented [facility] History of Past illness Narrative* Problem Noted Date Resolved Date Suicidal behavior with attempted self-injury 05/202003/24/2022 Overview: 08/17/2020: overdose on muscle relaxors, Sent to inpatient unit [facility] Current use of proton pump inhibitor 11/15/2016 03/24/2022 Overview: Mg checked 07/2019 Morbid obesity 03/03/2015 07/13/2017 Abdominal pain, right lower quadrant 10/05/2010 01/18/2013 documented as of this encounter (statuses as of 03/27/2022) [facility] illness Narrative* Problem Noted Date Resolved Date Suicidal behavior with attempted self-injury 05/202003/24/2022 Overview: 08/17/2020: overdose on muscle relaxors, Sent to inpatient unit [facility] Current use of proton pump inhibitor 11/15/2016 03/24/2022 Overview: Mg checked 07/2019 Morbid obesity 03/03/2015 07/13/2017 Abdominal pain, right lower quadrant 10/05/2010 01/18/2013 documented as of this encounter (statuses as of 03/31/2022) [facility] Narrative* Problem Noted Date Resolved Date Suicidal behavior with attempted self-injury 05/202003/24/2022 Overview: 08/17/2020: overdose on muscle relaxors, Sent to inpatient unit [facility] Current use of proton pump inhibitor 11/15/2016 03/24/2022 Overview: Mg checked 07/2019 Morbid obesity 03/03/2015 07/13/2017 Abdominal pain, right lower quadrant 10/05/2010 01/18/2013 documented as of this encounter (statuses as of 10/31/2022) [facility] Narrative* Problem Noted Date Resolved Date Suicidal behavior with attempted self-injury 05/202003/24/2022 Overview: 08/17/2020: overdose on muscle relaxors, Sent to inpatient unit [facility] Current use of proton pump inhibitor 11/15/2016 03/24/2022 Overview: Mg checked 07/2019 Morbid obesity 03/03/2015 07/13/2017 Abdominal pain, right lower quadrant 10/05/2010 01/18/2013 documented as of this encounter (statuses as of 11/29/2022) [facility] Narrative* Problem Noted Date Resolved Date Suicidal behavior with attempted self-injury 05/202003/24/2022 Overview: 08/17/2020: overdose on muscle relaxors, Sent to inpatient unit [facility] Current use of proton pump inhibitor 11/15/2016 03/24/2022 Overview: Mg checked 07/2019 Morbid obesity 03/03/2015 07/13/2017 Abdominal pain, right lower quadrant 10/05/2010 01/18/2013 documented as of this encounter (statuses as of 12/09/2022) [facility] Narrative* Problem Noted Date Resolved Date Suicidal behavior with attempted self-injury 05/202003/24/2022 Overview: 08/17/2020: overdose on muscle relaxors, Sent to inpatient unit [facility] Current use of proton pump inhibitor 11/15/2016 03/24/2022 Overview: Mg checked 07/2019 Morbid obesity 03/03/2015 07/13/2017 Abdominal pain, right lower quadrant 10/05/2010 01/18/2013 documented as of this encounter (statuses as of 12/15/2022) [facility] Narrative* Problem Noted Date Resolved Date Suicidal behavior with attempted self-injury 05/202003/24/2022 Overview: 08/17/2020: overdose on muscle relaxors, Sent to inpatient unit [facility] Current use of proton pump inhibitor 11/15/2016 03/24/2022 Overview: Mg checked 07/2019 Morbid obesity 03/03/2015 07/13/2017 Abdominal pain, right lower quadrant 10/05/2010 01/18/2013 documented as of this encounter (statuses as of 01/19/2023) [facility] Narrative* Problem Noted Date Resolved Date Suicidal behavior with attempted self-injury 05/202003/24/2022 Overview: 08/17/2020: overdose on muscle relaxors, Sent to inpatient unit [facility] Current use of proton pump inhibitor 11/15/2016 03/24/2022 Overview: Mg checked 07/2019 Morbid obesity 03/03/2015 07/13/2017 Abdominal pain, right lower quadrant 10/05/2010 01/18/2013 documented as of this encounter (statuses as of 01/21/2023) [facility] Narrative* Problem Noted Date Resolved Date Suicidal behavior with attempted self-injury 05/202003/24/2022 Overview: 08/17/2020: overdose on muscle relaxors, Sent to inpatient unit [facility] Current use of proton pump inhibitor 11/15/2016 03/24/2022 Overview: Mg checked 07/2019 Morbid obesity 03/03/2015 07/13/2017 Abdominal pain, right lower quadrant 10/05/2010 01/18/2013 documented as of this encounter (statuses as of 01/29/2023) [facility] Narrative* Problem Noted Date Resolved Date Suicidal behavior with attempted self-injury 05/202003/24/2022 Overview: 08/17/2020: overdose on muscle relaxors, Sent to inpatient unit [facility] Current use of proton pump inhibitor 11/15/2016 03/24/2022 Overview: Mg checked 07/2019 Morbid obesity 03/03/2015 07/13/2017 Abdominal pain, right lower quadrant 10/05/2010 01/18/2013 documented as of this encounter (statuses as of 01/30/2023) [facility] Narrative* Problem Noted Date Resolved Date Suicidal behavior with attempted self-injury 05/202003/24/2022 Overview: 08/17/2020: overdose on muscle relaxors, Sent to inpatient unit [facility] Current use of proton pump inhibitor 11/15/2016 03/24/2022 Overview: Mg checked 07/2019 Morbid obesity 03/03/2015 07/13/2017 Abdominal pain, right lower quadrant 10/05/2010 01/18/2013 documented as of this encounter (statuses as of 01/31/2023) [facility]arr[facility]* Problem Noted Date Resolved Date Suicidal behavior with attempted self-injury 05/202003/24/2022 Overview: 08/17/2020: overdose on muscle relaxors, Sent to inpatient unit [facility] Current use of proton pump inhibitor 11/15/2016 03/24/2022 Overview: Mg checked 07/2019 Morbid obesity 03/03/2015 07/13/2017 Abdominal pain, right lower quadrant 10/05/2010 01/18/2013 documented as of this encounter (statuses as of 02/06/2023) [facility]arrative* Problem Noted Date Resolved Date Suicidal behavior with attempted self-injury 05/202003/24/2022 Overview: 08/17/2020: overdose on muscle relaxors, Sent to inpatient unit [facility] Current use of proton pump inhibitor 11/15/2016 03/24/2022 Overview: Mg checked 07/2019 Morbid obesity 03/03/2015 07/13/2017 Abdominal pain, right lower quadrant 10/05/2010 01/18/2013 documented as of this encounter (statuses as of 02/07/2023) [facility] Narrative* Problem Noted Date Resolved Date Suicidal behavior with attempted self-injury 05/202003/24/2022 Overview: 08/17/2020: overdose on muscle relaxors, Sent to inpatient unit [facility] Current use of proton pump inhibitor 11/15/2016 03/24/2022 Overview: Mg checked 07/2019 Morbid obesity 03/03/2015 07/13/2017 Abdominal pain, right lower quadrant 10/05/2010 01/18/2013 documented as of this encounter (statuses as of 03/10/2023) [facility] Narrative* Problem Noted Date Diagnosed Date Resolved Date Suicidal behavior with attempted self-injury 0 03/24/2022 Overview: 08/17/2020: overdose on muscle relaxors, Sent to inpatient unit [facility] Current use of proton pump inhibitor 11/15/2016 03/24/2022 Overview: Mg checked 07/2019 Morbid obesity 03/03/2015 07/13/2017 Abdominal pain, right lower quadrant 10/05/2010 01/18/2013 documented as of this encounter (statuses as of 07/25/2023) [facility] Narrative* Problem Noted Date Diagnosed Date Resolved Date Suicidal behavior with attempted self-injury 0 03/24/2022 Overview: 08/17/2020: overdose on muscle relaxors, Sent to inpatient unit [facility] Current use of proton pump inhibitor 11/15/2016 03/24/2022 Overview: Mg checked 07/2019 Morbid obesity 03/03/2015 07/13/2017 Abdominal pain, right lower quadrant 10/05/2010 01/18/2013 documented as of this encounter (statuses as of 08/29/2023) [facility]arr[facility]* Problem Noted Date Diagnosed Date Resolved Date Suicidal behavior with attempted self-injury 0 03/24/2022 Overview: 08/17/2020: overdose on muscle relaxors, Sent to inpatient unit [facility] Current use of proton pump inhibitor 11/15/2016 03/24/2022 Overview: Mg checked 07/2019 Morbid obesity 03/03/2015 07/13/2017 Abdominal pain, right lower quadrant 10/05/2010 01/18/2013 documented as of this encounter (statuses as of 08/31/2023) [facility]arrative* Problem Noted Date Diagnosed Date Resolved Date Suicidal behavior with attempted self-injury 0 03/24/2022 Overview: 08/17/2020: overdose on muscle relaxors, Sent to inpatient unit [facility] Current use of proton pump inhibitor 11/15/2016 03/24/2022 Overview: Mg checked 07/2019 Morbid obesity 03/03/2015 07/13/2017 Abdominal pain, right lower quadrant 10/05/2010 01/18/2013 documented as of this encounter (statuses as of 09/01/2023) [facility]* Problem Noted Date Diagnosed Date Resolved Date Suicidal behavior with attempted self-injury 0 03/24/2022 Overview: 08/17/2020: overdose on muscle relaxors, Sent to inpatient unit [facility] Current use of proton pump inhibitor 11/15/2016 03/24/2022 Overview: Mg checked 07/2019 Morbid obesity 03/03/2015 07/13/2017 Abdominal pain, right lower quadrant 10/05/2010 01/18/2013 documented as of this encounter (statuses as of 09/04/2023) [facility]* Problem Noted Date Diagnosed Date Resolved Date Suicidal behavior with attempted self-injury 0 03/24/2022 Overview: 08/17/2020: overdose on muscle relaxors, Sent to inpatient unit [facility] Current use of proton pump inhibitor 11/15/2016 03/24/2022 Overview: Mg checked 07/2019 Morbid obesity 03/03/2015 07/13/2017 Abdominal pain, right lower quadrant 10/05/2010 01/18/2013 documented as of this encounter (statuses as of 09/05/2023) [facility]arr[facility]* Problem Noted Date Diagnosed Date Resolved Date Suicidal behavior with attempted self-injury 0 03/24/2022 Overview: 08/17/2020: overdose on muscle relaxors, Sent to inpatient unit [facility] Current use of proton pump inhibitor 11/15/2016 03/24/2022 Overview: Mg checked 07/2019 Morbid obesity 03/03/2015 07/13/2017 Abdominal pain, right lower quadrant 10/05/2010 01/18/2013 documented as of this encounter (statuses as of 09/05/2023) [facility]* Problem Noted Date Diagnosed Date Resolved Date Suicidal behavior with attempted self-injury 0 03/24/2022 Overview: 08/17/2020: overdose on muscle relaxors, Sent to inpatient unit [facility] Current use of proton pump inhibitor 11/15/2016 03/24/2022 Overview: Mg checked 07/2019 Morbid obesity 03/03/2015 07/13/2017 Abdominal pain, right lower quadrant 10/05/2010 01/18/2013 documented as of this encounter (statuses as of 09/06/2023) [facility] Problem Noted Date Diagnosed Date Resolved Date Suicidal behavior with attempted self-injury 0 03/24/2022 Overview: 08/17/2020: overdose on muscle relaxors, Sent to inpatient unit [facility] Current use of proton pump inhibitor 11/15/2016 03/24/2022 Overview: Mg checked 07/2019 Morbid obesity 03/03/2015 07/13/2017 Abdominal pain, right lower quadrant 10/05/2010 01/18/2013 documented as of this encounter (statuses as of 09/08/2023) [facility] Problem Noted Date Diagnosed Date Resolved Date Suicidal behavior with attempted self-injury 0 03/24/2022 Overview: 08/17/2020: overdose on muscle relaxors, Sent to inpatient unit [facility] Current use of proton pump inhibitor 11/15/2016 03/24/2022 Overview: Mg checked 07/2019 Morbid obesity 03/03/2015 07/13/2017 Abdominal pain, right lower quadrant 10/05/2010 01/18/2013 documented as of this encounter (statuses as of 09/17/2023) [facility] Problem Noted Date Diagnosed Date Resolved Date Suicidal behavior with attempted self-injury 0 03/24/2022 Overview: 08/17/2020: overdose on muscle relaxors, Sent to inpatient unit [facility] Current use of proton pump inhibitor 11/15/2016 03/24/2022 Overview: Mg checked 07/2019 Morbid obesity 03/03/2015 07/13/2017 Abdominal pain, right lower quadrant 10/05/2010 01/18/2013 documented as of this encounter (statuses as of 09/17/2023) [facility] Problem Noted Date Diagnosed Date Resolved Date Suicidal behavior with attempted self-injury 0 03/24/2022 Overview: 08/17/2020: overdose on muscle relaxors, Sent to inpatient unit [facility] Current use of proton pump inhibitor 11/15/2016 03/24/2022 Overview: Mg checked 07/2019 Morbid obesity 03/03/2015 07/13/2017 Abdominal pain, right lower quadrant 10/05/2010 01/18/2013 documented as of this encounter (statuses as of 09/25/2023) [facility] Problem Noted Date Diagnosed Date Resolved Date Suicidal behavior with attempted self-injury 0 03/24/2022 Overview: 08/17/2020: overdose on muscle relaxors, Sent to inpatient unit [facility] Current use of proton pump inhibitor 11/15/2016 03/24/2022 Overview: Mg checked 07/2019 Morbid obesity 03/03/2015 07/13/2017 Abdominal pain, right lower quadrant 10/05/2010 01/18/2013 documented as of this encounter (statuses as of 10/13/2023) [facility]* Problem Noted Date Diagnosed Date Resolved Date Suicidal behavior with attempted self-injury 0 03/24/2022 Overview: 08/17/2020: overdose on muscle relaxors, Sent to inpatient unit [facility] Current use of proton pump inhibitor 11/15/2016 03/24/2022 Overview: Mg checked 07/2019 Morbid obesity 03/03/2015 07/13/2017 Abdominal pain, right lower quadrant 10/05/2010 01/18/2013 documented as of this encounter (statuses as of 10/27/2023) [facility]* Problem Noted Date Diagnosed Date Resolved Date Suicidal behavior with attempted self-injury 0 03/24/2022 Overview: 08/17/2020: overdose on muscle relaxors, Sent to inpatient unit [facility] Current use of proton pump inhibitor 11/15/2016 03/24/2022 Overview: Mg checked 07/2019 Morbid obesity 03/03/2015 07/13/2017 Abdominal pain, right lower quadrant 10/05/2010 01/18/2013 documented as of this encounter (statuses as of 01/05/2024) [facility]* Problem Noted Date Diagnosed Date Resolved Date Suicidal behavior with attempted self-injury 0 03/24/2022 Overview: 08/17/2020: overdose on muscle relaxors, Sent to inpatient unit [facility] Current use of proton pump inhibitor 11/15/2016 03/24/2022 Overview: Mg checked 07/2019 Morbid obesity 03/03/2015 07/13/2017 Abdominal pain, right lower quadrant 10/05/2010 01/18/2013 documented as of this encounter (statuses as of 01/12/2024) [facility]* Problem Noted Date Diagnosed Date Resolved Date Suicidal behavior with attempted self-injury 0 03/24/2022 Overview: 08/17/2020: overdose on muscle relaxors, Sent to inpatient unit [facility] Current use of proton pump inhibitor 11/15/2016 03/24/2022 Overview: Mg checked 07/2019 Morbid obesity 03/03/2015 07/13/2017 Abdominal pain, right lower quadrant 10/05/2010 01/18/2013 documented as of this encounter (statuses as of 01/12/2024) [facility]* Problem Noted Date Diagnosed Date Resolved Date Suicidal behavior with attempted self-injury 0 03/24/2022 Overview: 08/17/2020: overdose on muscle relaxors, Sent to inpatient unit [facility] Current use of proton pump inhibitor 11/15/2016 03/24/2022 Overview: Mg checked 07/2019 Morbid obesity 03/03/2015 07/13/2017 Abdominal pain, right lower quadrant 10/05/2010 01/18/2013 documented as of this encounter (statuses as of 01/15/2024) [facility]* Problem Noted Date Diagnosed Date Resolved Date Suicidal behavior with attempted self-injury 0 03/24/2022 Overview: 08/17/2020: overdose on muscle relaxors, Sent to inpatient unit [facility] Current use of proton pump inhibitor 11/15/2016 03/24/2022 Overview: Mg checked 07/2019 Morbid obesity 03/03/2015 07/13/2017 Abdominal pain, right lower quadrant 10/05/2010 01/18/2013 documented as of this encounter (statuses as of 01/26/2024) [facility]* Problem Noted Date Diagnosed Date Resolved Date Suicidal behavior with attempted self-injury 0 03/24/2022 Overview: 08/17/2020: overdose on muscle relaxors, Sent to inpatient unit [facility] Current use of proton pump inhibitor 11/15/2016 03/24/2022 Overview: Mg checked 07/2019 Morbid obesity 03/03/2015 07/13/2017 Abdominal pain, right lower quadrant 10/05/2010 01/18/2013 documented as of this encounter (statuses as of 01/26/2024) [facility]* Problem Noted Date Diagnosed Date Resolved Date Suicidal behavior with attempted self-injury 0 03/24/2022 Overview: 08/17/2020: overdose on muscle relaxors, Sent to inpatient unit [facility] Current use of proton pump inhibitor 11/15/2016 03/24/2022 Overview: Mg checked 07/2019 Morbid obesity 03/03/2015 07/13/2017 Abdominal pain, right lower quadrant 10/05/2010 01/18/2013 documented as of this encounter (statuses as of 02/16/2024) [facility]arr[facility]* Problem Noted Date Resolved Date Morbid obesity 03/03/2015 07/13/2017 Abdominal pain, right lower quadrant 10/05/2010 01/18/2013 documented as of this encounter (statuses as of 01/31/2022) [facility] No data available for this [facility] Evaluation note* Diagnosis Pulmonary HTN (HCC) Other chronic pulmonary heart diseases documented in this encounter [facility] note* Diagnosis Well adult exam- Primary Routine general medical examination at a health care facility Encounter for gynecological examination without abnormal finding Routine gynecological examination Type 2 diabetes mellitus with hyperglycemia, without long-term current use of insulin (HCC) Essential hypertension with goal blood pressure less than 130/85 Dyslipidemia Other and unspecified hyperlipidemia Mild intermittent asthma without complication Unspecified asthma Pulmonary HTN (HCC) Other chronic pulmonary heart diseases Seronegative rheumatoid arthritis (HCC) Rheumatoid arthritis Moderate episode of recurrent major depressive disorder (HCC) Generalized anxiety disorder PTSD (post-traumatic stress disorder) Posttraumatic stress disorder Vitamin D deficiency Unspecified vitamin D deficiency Obesity (BMI 30-39.9) Obesity, unspecified Hypomagnesemia Disorders of magnesium metabolism Fatty liver Other chronic nonalcoholic liver disease Elevated LFTs Other abnormal blood chemistry Medication management Encounter for long-term (current) use of other medications Need for vaccination Need for prophylactic vaccination and inoculation against unspecified single disease Impacted cerumen of left ear Impacted cerumen [facility] Diagnosis Type 2 diabetes mellitus with hyperglycemia, without long-term current use of insulin (HCC)- Primary Essential hypertension with goal blood pressure less than 130/85 Mild intermittent asthma without complication Unspecified asthma Dyslipidemia Other and unspecified hyperlipidemia Pulmonary HTN (HCC) Other chronic pulmonary heart diseases Moderate episode of recurrent major depressive disorder (HCC) PTSD (post-traumatic stress disorder) Posttraumatic stress disorder Generalized anxiety disorder Seronegative rheumatoid arthritis (HCC) Rheumatoid arthritis Vitamin D deficiency Unspecified vitamin D deficiency Hypomagnesemia Disorders of magnesium metabolism Obesity (BMI 30-39.9) Obesity, unspecified Encounter for immunization Need for other specified prophylactic vaccination against single bacterial disease [facility] Diagnosis Leukocytosis, unspecified type- Primary documented in this encounter [facility] noteNo assessment information availableWAdena [facility] Work Phone: Evaluation note* Diagnosis Chest pain, unspecified type- Primary CACERES (dyspnea on exertion) Other dyspnea and respiratory abnormality documented in this encounter [facility] note* Diagnosis Encounter for screening mammogram for breast cancer [facility] Diagnosis Pulmonary HTN (HCC) Other chronic pulmonary heart diseases [facility] Diagnosis Tooth infection- Primary Acute apical periodontitis of pulpal origin documented in this encounter [facility] note* Diagnosis Diarrhea, unspecified type- Primary [facility]* Diagnosis Epigastric pain- Primary Abdominal pain, epigastric Type 2 diabetes mellitus with hyperglycemia, without long-term current use of insulin (HCC) Diarrhea, unspecified type Nausea Nausea alone [facility]* Diagnosis Epigastric pain- Primary Abdominal pain, epigastric Bloating Flatulence, eructation, and gas pain Diarrhea, unspecified type Nausea Nausea alone Need for vaccination Need for prophylactic vaccination and inoculation against unspecified single disease [facility]* Diagnosis Type 2 diabetes mellitus with hyperglycemia, without long-term current use of insulin (HCC)- Primary [facility]* Diagnosis Epigastric pain Abdominal pain, epigastric Bloating Flatulence, eructation, and gas pain Diarrhea, unspecified type Nausea Nausea alone [facility]* Diagnosis Diarrhea, unspecified type Epigastric pain Abdominal pain, epigastric [facility]* Diagnosis Chronic diarrhea- Primary Diarrhea [facility]* Diagnosis Encounter for screening mammogram for breast cancer [facility]* Diagnosis Epigastric pain Abdominal pain, epigastric [facility]* Diagnosis Pulmonary HTN (HCC) Other chronic pulmonary heart diseases [facility]* Diagnosis Herpes zoster with complication- Primary Herpes zoster with unspecified complication documented in this encounter [facility] note* Diagnosis Nausea- Primary Nausea alone documented in this encounter [facility] note* Diagnosis Herpes zoster without complication- Primary Herpes zoster without mention of complication documented in this encounter [facility] note* Diagnosis Gastroenteritis- Primary Other and unspecified noninfectious gastroenteritis and colitis documented in this encounter [facility] note* Diagnosis Chronic diarrhea- Primary Diarrhea Intestinal malabsorption, unspecified type documented in this encounter [facility] note* Diagnosis Type 2 diabetes mellitus with hyperglycemia, without long-term current use of insulin (HCC)- Primary Chronic diarrhea Diarrhea documented in this encounter [facility] note* Diagnosis Pain, dental- Primary Unspecified disorder of the teeth and supporting structures documented in this encounter [facility] note* Diagnosis Chronic diarrhea Diarrhea documented in this encounter [facility] note* Diagnosis Epigastric pain Abdominal pain, epigastric Bloating Flatulence, eructation, and gas pain Diarrhea, unspecified type documented in this encounter [facility] note* Diagnosis Gastroenteritis Other and unspecified noninfectious gastroenteritis and colitis documented in this encounter [facility] note* Diagnosis Chronic dental caries extending to pulp- Primary Dental caries extending into pulp [facility] Diagnosis Chronic dental caries extending to pulp- Primary Dental caries extending into pulp [facility]* Diagnosis Rhinosinusitis- Primary Unspecified sinusitis (chronic) documented in this encounter [facility] note* Diagnosis Inflammatory arthritis- Primary Unspecified inflammatory polyarthropathy Raynaud's disease without gangrene Inflammatory arthritis Unspecified inflammatory polyarthropathy [facility]* Diagnosis Encounter for screening mammogram for breast cancer documented in this encounter [facility] note* Diagnosis Lactose intolerance Intestinal disaccharidase deficiencies and disaccharide malabsorption Nausea and vomiting, unspecified vomiting type documented in this encounter [facility] note* Diagnosis 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 Disla.[facility] Work Phone: Instructions* Attachments The following attachments cannot be sent through Care Everywhere. * NAFLD: Nonalcoholic Fatty Liver Disease ([place]) * sulfasalazine ([place]) [facility]* Attachments The following attachments cannot be sent through Care Everywhere. * Adalimumab Injection ([place]) [facility] HospitalProgress note Author Esteban Ware [facility] Note Date/Time July 31, 2025 10:59am [facility] [address] [place] [address] [place] [address] OFFICE VISIT Date of Service: 07/31/25 MR#: [id number] Acct: [id number] Name: LUKASZ DIAZ Rep #: [id number] : 1980 Provider: Dr. Katelyn Ware MD Age/Sex: 44/F [place] [facility] [place] [facility] [place]: Signed Intake Vital Signs 05/01/25 10:47 07/17/25 11:17 07/31/25 10:31 Height 5 ft 9 in 5 ft 9 in 5 ft 9 in Weight: 244 lb BMI 36.0 BP 126/80 H Blood Pressure Location Lt brachial Position Sitting Respiration 18 Pulse 84 Pulse Source Monitor Temp 96.8 F L Temp Source Temporal Pulse Oximetry (%) 98 Oxygen Delivery Method room air Intake Visit Reasons: 3 M FU Chief Complaint: 3 M FU Is patient in pain?: No Allergies hydroxychloroquine (From Plaquenil) Allergy (Intermediate, Verified 07/31/25 10:32) GI issues adhesive tape (paper tape) Allergy (Verified 07/31/25 10:32) Other ketorolac tromethamine (From Toradol) Allergy (Verified 07/31/25 10:32) Shortness of breath naproxen sodium (From Aleve) Allergy (Verified 07/31/25 10:32) Shortness of breath Penicillins Allergy (Verified 09/18/25 10:32) Rash Medications ?Medication ?Instructions ?Recorded ?Confirmed ?Type blood-glucose meter (Accu-Chek #1 ea 05/08/24 07/31/25 Rx Guide Glucose Meter) lancets (Accu-Chek Fastclix Lancet #100 ea 05/08/24 Rx Drum) ondansetron HCl 4 mg tablet 4 mg PO QDAY PRN 01/09/25 07/31/25 History desvenlafaxine succinate 100 mg 100 mg PO DAILY #30 ta bs 01/13/25 07/31/25 Rx tablet,extended release 24 hr adalimumab 40 mg/0.4 mL 40 mg subcut Q2W 05/01/25 History subcutaneous syringe kit (Humira(CF)) blood sugar diagnostic (Accu-Chek #100 ea 05/14/25 Rx Nathalie Plus test strips) cyclobenzaprine 5 mg tablet 5 mg PO TID PRN muscle spa sm #30 06/05/25 07/31/25 Rx tabs nadolol 40 mg tablet 40 mg PO QDAY #90 tabs 06/2307/31/25 Rx metformin 500 mg tablet,extended 1,000 mg PO BID 06/2607/31/25 History release 24 hr mirtazapine 30 mg tablet 30 mg PO QHS 06/26/25 History prazosin 1 mg capsule 3 mg PO QHS 06/26/25 5 History empagliflozin 25 mg tablet 25 mg PO DAILY #90 tabs 07/31/25 Rx bacitracin 500 unit/gram topical 1 applic topical TID 10 days #144 07/31/25 07/31/25 Rx packet ea dulaglutide 4.5 mg/0.5 mL 4.5 mg (0.5 mL) subcut QWEEK #2 mL 07/31/25 07/31/25 Rx subcutaneous pen injector Have you fallen in the past year?: Yes (x1) Nurse's Note: pt reports that she has a rash in her umbilicus area that was bleeding/raw when she got out of the pool after her therapy session pt declined to answer PHq9 and HENRY screeners citing the reason as she is seeing her counselor tomorrow and will be answering these questions with him. [facility] Medical History (Updated 07/31/25 @ 14:[address] Esteban Ware MD) Ovarian mass, left Back problem Kidney stone PCOS (polycystic ovarian syndrome) Rheumatoid arthritis Bursitis of left shoulder MVP (mitral valve prolapse) Celiac disease Lupus Carpal tunnel syndrome Diabetes Pulmonary hypertension Hyperlipidemia Surgical History S/P partial hysterectomy H/O lateral meniscus repair of right knee History of carpal tunnel surgery Hx of reduction mammoplasty Hx of appendectomy Hx of cholecystectomy Family History Mother Autoimmune disease lupus Parkinson disease Hypertension Grandfather Colon cancer Father Hypertension Myocardial infarction, Onset Age: 51 Grandmother Breast cancer Sister Crohn's disease Social History adopted: No household members: family current occupational status: unemployed pets and animals: Yes (2) pets and animals: cat(s) sexually active: No Smoking Status: Former smoker quit date: 11/13/13 pack-years: 15 Tobacco: How many years used: 20 Electronic Cigarette Use: not used alcohol intake: never substance use type: does not use diet: gluten free caffeine: Yes (1) Type: coffee frequency: does not exercise seatbelt use: always do you feel safe at home: Yes HPI HPI Chief Complaint: 3 M FU Details: LUKASZ DIAZ, is a 44 F who presents to the office today for a follow up. She is due for some routine blood work and never did her mammogram as previously ordered. She is due for her second shingrix and will get it at the pharmacy. She doesn't smoke and does need refills. She reports she is eating healthy. She reports she is active. She does check her sugars at home in the mornings. She reports it has been in the 200s for the last 2 weeks. She reports she hasn't had jardiance for about 2months stating she misplaced her bottle. She reports she just restarted it about 1-2 weeks ago. Prior to that, she had been taking her medications as prescribed without problems. She does try to monitor her carbohydrate and sugarintake. She is up to date on her diabetic eye exam. She doesn't see podiatry. She doesn't check her blood pressure at home. She is taking her medication as prescribed without problems. She does try to monitor her salt intake. The patient has a history of depression and anxiety. She has had problems with her mental health since she was a teenager. She has been on these medications for a few years. She is doing well on her medications. She does follow with [facility] and sees them tomorrow. She sees them every 3 months which is beneficial. She denies any current concerns of depression/anxiety nor any thoughts of suicide. She follows with gastroenterology for her celiac disease and is trying to stick to the gluten free diet. She states she has been doing well with it. The patient continues to follow with rheumatology who is managing her medications. She reports she has been feeling better since getting placed on humira. She denies any problems. She rates her pain 2/10 currently primarily in her hands/back/knees and hips. The patient had been seen by Ghislaine Rodriguez NP, last month with complaints of pelvic pain. Work up showed a complex mass and she was referred to her OBGYN. She returned to the ED earlier this month. Repeat imaging was done which showedresolution of the mass (felt to be a hemorrhagic cyst) without other findings. She reports she is still having some pain which is unchanged. She did see pain management who felt it was musculoskeletal. She was started on baclofen, but itmakes her drowsy, so she can only take it at night. She reports she started aqua therapy yesterday and will be seeing a sports leadership instructor on Monday. She rates her pelvic pain 5/10 currently. The patient would like to have her umbilicus looked at. She reports it was looking 'yeasty.' She states she applied an anti-fungal cream (clotrimazole) and powder (miconazole) that she got from [facility]. She states it did help, but she is having some irritation around the umbilicus after going in the pool yesterday and would like to have it looked at. She thinks there may be a small area that is cracked with mild blood, but denies any other drainage. She deniesany fevers or tenderness in that area. She has no questions or concerns at this time. ROS Const Constitutional: Positive for weight change (6 pound weight gain); No fever(s), frequent falls, headache(s) or weakness Eyes Eyes: No blurry vision, change in vision or visual disturbances ENT ENT: No abnormal hearing, hearing loss, nasal congestion, headache(s) or sore throat Resp Respiratory: No cough or shortness of breath Cardio Cardiology: No chest pain at rest, chest pain with exertion, shortness of breath, lightheadedness or palpitations Gastro GI: No abdominal pain, change in bowel habits, constipation, diarrhea, nausea/dyspepsia or vomiting Genitourinary-Female: Positive for pelvic pain; No difficulty urinating, burning urination or painful urination Musc Musculoskeletal: No numbness or tingling Skin Skin: No rash Neuro Neurology: No abnormal hearing, dizziness, weakness, frequent falls, headache(s), loss of vision, numbness, tingling, visual disturbances or fainting Psych Psychiatric: No anxiety, No depression, No Thoughts of harming yourself/Others and No suicidal ideation Endo Endocrine: Positive for weight change (6 pound weight gain) Exam Const General: cooperative, healthy appearing, no acute distress, well developed, not diaphoretic and not ill appearing Nutritional Appearance: well nourished Orientation: alert and oriented x3 Limitations: mental status not altered [facility] Head: normal to inspection, normocephalic and atraumatic Ears: hearing grossly normal bilaterally Face and sinus: normal facial exam Mouth: oral mucosae normal and moist mucous membranes Teeth and gingiva: dentition normal and dentures (maxillary) Throat: posterior oropharynx normal Eyes Conjunctivae: conjunctivae normal Sclera: sclerae normal Pupils: PERRL Chest Chest palpation & inspection: normal inspection of the chest Resp Effort & Inspection: normal respiratory effort, able to speak in complete sentences, no audible wheezes and no cough Auscultation: Bilateral: Clear to Auscultation Cardio Rate: regular rate Rhythm: regular rhythm Heart Sounds: S1 normal, S2 normal and no murmurs GI Inspection: non-distended Auscultation: normal bowel sounds Palpation: soft, no hepatosplenomegaly and nontender Skin General: no rashes or lesions noted and dry skin Wounds: no wounds Other: Mild cracking around the umbilicus with some skin irritation. No erythema, drainage, or increased warmth. Neuro General: patient alert and patient oriented x3 Cranial Nerves: PERRL Speech: speech normal Extrem General: normal to inspection and no edema Psych Appearance: grossly normal Affect: normal affect Attitude: cooperative Results POC A1C POC A1C 8.5 % Last Edit by Taryn Cummings LPN on 07/31/25 10:36 Coding Level of Care Code Off vis,est,level 4 Diagnoses Type 2 diabetes mellitus without complication, without long-term current use of insulin E11.9 Diabetes mellitus complication status: without complication Diabetes mellitus halfway insulin use: without halfway use Diabetes mellitus type: type 2 Essential hypertension I10 Multiple joint pain M25.50 Autoimmune disease M35.9 Mixed hyperlipidemia E78.2 Mitral valve prolapse I34.1 Anxiety and depression F41.9; F32.A Celiac disease K90.0 Pelvic pain R10.2 Umbilical abnormality Q89.9 Immunization due Z23 Time Spent (min) 30 Assessment and Plan Assessment and Plan (1) Diabetes: Status: Chronic Qualifiers: Diabetes mellitus complication status: without complication Diabetes mellitus long chain beamer insulin use: without halfway use Diabetes mellitus type: type 2 Qualified Code(s): E11.9 - Type 2 diabetes mellitus without complications Plan: A1c remains uncontrolled at 8.5, not significantly changed from 8.6 at her last office visit. Will increase her trulicity dose to 4.5mg weekly and monitor. Discussed diet and exercise. She is up to date on her eye exam and foot exam. (2) Essential hypertension: Status: Acute Plan: Blood pressure shows good control. Will continue current management and monitor. Discussed monitoring salt intake. (3) Multiple joint pain: Plan: Patient is still following with rheumatology and is doing well on the humira. Will continue to follow up on their findings and recommendations. (4) Autoimmune disease: Plan: As above. Patient reports being diagnosed with lupus and seronegative RA. (5) Mixed hyperlipidemia: Plan: The patient is not currently taking a statin. Patient encouraged to complete her blood work as previously ordered. Discussed diet and exercise. (6) Mitral valve prolapse: Plan: Patient takes the nadolol as above for this as well. She denies any symptoms and is no longer following with cardiology. Will continue to monitor. No murmur appreciated on exam today. (7) Anxiety and depression: Plan: Patient follows with psychiatry and does well on her medications. She denies any current concerns nor any thoughts of suicide. She scored 4 on her PHQ and 6on her HENRY at her last office visit. Will continue to follow up on findings andrecommendations. (8) Celiac disease: Plan: She continues to do well on a gluten free diet. She follows with GI. Will follow up on their findings and recommendations. (9) Pelvic pain: Status: Acute Plan: Patient has just started aqua therapy and will be seeing sports medicine next week. Will follow up on their findings and recommendations. (10) Umbilical abnormality: Plan: Exam as above. Although no signs of current infection, will treat with a short course of bacitracin and monitor. She was in agreement. (11) Immunization due: Plan: Patient is due for her second shingrix since she is immunocompromised. Due to her insurance, she was encouraged to get it at the pharmacy or health department. She was in agreement. The patient is here for a follow up. Plan as above. Medications reviewed with the patient. Routine follow up scheduled. The patient was instructed to call with any concerns or questions before then and they were in agreement. I spent a total of 30 minutes on the date of the service which included preparing to see the patient, [id number] patient care, completing clinical documentation, obtaining and/or reviewing separately obtained history Orders: Orders POC A1C Today E11.9 - Type 2 diabetes mellitus without complications Medications: New bacitracin 1 applic topical TID 144 ea 0RF 10 days Changed From dulaglutide 3 mg (0.5 mL) subcut QWEEK 2 mL 1RF To dulaglutide 4.5 mg (0.5 mL) subcut QWEEK 2 mL 1RF Plan Details Follow Up: 3 Months Clinical Quality Measures Falls Risk Screening/Assistive Devices Have you fallen in the past year?: Yes (x1) 07/31/25 7619 <Electronically signed by Esteban abbott MD> Date _ Esteban Ware MD Cosigner Signature: Date (if applicable) CC: ~ [facility] Work Phone: Reason for referral (narrative)* Outpatient Procedure (Urgent) - Additional Clinical Info Needed Specialty Diagnoses / Procedures Referred By Khari t Referred To [facility] Diagnoses Chest pain, unspecified type CACERES (dyspnea on exertion) Procedures ECHO ECHO TTHRC R-T 2D W/WOM-MODE COMPL SPEC&COLR D Francesco Mandujano MD [address] [place] [address] [facility] [place] [address] [place] [id number] Referral ID Status Reason Start Date Expiration Date Visits Requested Visits Authorized [id number] Additional Clinical Info Needed Auto-Generat ed Referral 01/27/2023 01/27/2024 1 1 [facility] for referral (narrative)* Diagnostic Procedure Only (Routine) - Pending Review Specialty Diagnoses / Procedures Referred By Khari louie Referred To Contact [facility] Diagnoses Encounter for screening mammogram for breast cancer Procedures ANDREZ SCREENING SCREENING MAMMOGRAPHY BI 2-VIEW BREAST INC CAD Francesco Mandujano MD [address] [place] [address] [facility] [address] [place] [id number] Referral ID Status Reason Start Date Expiration Date Visits Requested Visits Authorized [id number] Pending Review Auto-Generat ed Referral 02/01/2023 03/02/2024 1 1 [facility] for referral (narrative)* Diagnostic Procedure Only (Routine) - Authorized Specialty Diagnoses / Procedures Referred By Khari t Referred To Contact US IMAGING Diagnoses Diarrhea, unspecified type Epigastric pain Procedures US ABD RIGHT UPPER QUADRANT US ABDOMINAL REAL TIME W/IMAGE LIMITED Oumou Posey, LEAD INFRASTRUCTURE ARCHITECT.MAT MAN [address] [place] [address] Us Imaging [id number] Referral ID Status Reason Start Date Expiration Date Visits Requested Visits Authorized [id number] Authorized Auto-Generat ed Referral 09/28/2024 1 1 [facility] for referral (narrative)* Diagnostic Procedure Only (Routine) - Closed Specialty Diagnoses / Procedures Referred By Contac t Referred To Contact US IMAGING Diagnoses Diarrhea, unspecified type Epigastric pain Procedures US ABD RIGHT UPPER QUADRANT US ABDOMINAL REAL TIME W/IMAGE LIMITED Oumou Posey APRN.CNP [address] [place] [address] [place] [address] Referral ID Status Reason Start Date Expiration Date V isits Requested Visits Authorized [id number] Closed Auto-Generate d Referral 08/30/2023 09/28/2024 1 1 [facility] for referral (narrative)* Outpatient Procedure (Routine) - Authorized Specialty Diagnoses / Procedures Referred By Contac t Referred To Contact [facility] Diagnoses Chronic diarrhea Procedures COLONOSCOPY DIAGNOSTIC COLONOSCOPY FLX DX W/COLLJ SPEC WHEN PFRMD Louise Espino MD [address] [place], [place] [address] [address] [facility] Disease [address] [address] Referral ID Status Reason Start Date Expiration Date Visits Requested Visits Authorized [id number] Authorized Auto-Generat ed Referral 01/11/2024 01/10/2025 1 1 * Outpatient Procedure (Routine) - Authorized Specialty Diagnoses / Procedures Referred By Contac t Referred To Contact [facility] Diagnoses Chronic diarrhea Procedures EGD DIAGNOSTIC ESOPHAGOGASTRODUODENOS COPY TRANSORAL DIAGNOSTIC Louise Espino MD [address] [place] [address] [facility] Disease [place] [id number] Referral ID Status Reason Start Date Expiration Date Visits Requested Visits Authorized [id number] Authorized Auto-Generat ed Referral 01/11/2024 01/10/2025 1 1 [facility] for referral (narrative)* Diagnostic Procedure Only (Routine) - Pending Review Specialty Diagnoses / Procedures Referred By Khari t Referred To Contact BR IMAGING Diagnoses Encounter for screening mammogram for breast cancer Procedures ANDREZ SCREENING SCREENING MAMMOGRAPHY BI 2-VIEW BREAST INC CAD Francesco Mandujano MD [address] [place] [address] Br Imaging [address] [place] [address] Referral ID Status Reason Start Date Expiration Date Visits Requested Visits Authorized [id number] Pending Review Auto-Generat ed Referral 01/10/2024 02/08/[address] [facility] for referral (narrative)* Outpatient Procedure (Routine) - Closed Specialty Diagnoses / Procedures Referred By Khari louie Referred To Contact [facility] Diagnoses Chronic diarrhea Procedures COLONOSCOPY DIAGNOSTIC COLONOSCOPY FLX DX W/COLLJ SPEC WHEN PFRMD Louise Espino MD [address] [facility] [place] [address] [facility] Disease [address] [address] Referral ID Status Reason Start Date Expiration Date V isits Requested Visits Authorized [id number] Closed Auto-Generate d Referral 01/11/2024 01/10/2025 1 1 * Outpatient Procedure (Routine) - Closed Specialty Diagnoses / Procedures Referred By Khari louie Referred To Contact [facility] Diagnoses Chronic diarrhea Procedures EGD DIAGNOSTIC ESOPHAGOGASTRODUODENOS COPY TRANSORAL DIAGNOSTIC Louise Espino MD [address] [facility] [place] [address] [facility] Disease [address] [address] Referral ID Status Reason Start Date Expiration Date V isits Requested Visits Authorized [id number] Closed Auto-Generate d Referral 01/11/2024 01/10/2025 1 1 [facility] for referral (narrative)* Diagnostic Procedure Only (Routine) - Closed Specialty Diagnoses / Procedures Referred By Contac t Referred To Contact XR IMAGING Diagnoses Epigastric pain Bloating Diarrhea, unspecified type Procedures XR ABDOMEN 3V KUB W/OBLIQUES RADIOLOGIC EXAM ABDOMEN 3+ VIEWS Francesco Mandujano MD [address] [place] [address] [place] [address] Referral ID Status Reason Start Date Expiration Date V isits Requested Visits Authorized [id number] Closed Auto-Generate d Referral 09/04/2023 10/03/2024 1 1 [facility] for referral (narrative)No reason for referral information availableWAdena [facility] Work Phone: [facility] for [facility] Narrative* Diagnostic Procedure Only (Routine) - Closed Specialty Diagnoses / Procedures Referred By Contac t Referred To Contact US IMAGING Diagnoses Diarrhea, unspecified type Epigastric pain Procedures US ABD RIGHT UPPER QUADRANT US ABDOMINAL REAL TIME W/IMAGE LIMITED Oumou Posey APRN.MAT MAN [address] [place] [address] [place] [address] Referral ID Status Reason Start Date Expiration Date V isits Requested Visits Authorized [id number] Closed Auto-Generate d Referral 08/30/2023 09/28/2024 1 1 [facility] for visit Narrative* Outpatient Procedure (Routine) - Closed Specialty Diagnoses / Procedures Referred By Contac t Referred To Contact [facility] Diagnoses Chronic diarrhea Procedures COLONOSCOPY DIAGNOSTIC COLONOSCOPY FLX DX W/COLLJ SPEC WHEN Louise Patterson MD [address] [facility] [place] [address] [facility] [place] [address] [place] [id number] Referral ID Status Reason Start Date Expiration Date V isits Requested Visits Authorized [id number] Closed Auto-Generate d Referral 01/11/2024 01/10/2025 1 [facility] Diagnostic Procedure Only (Routine) - Closed Specialty Diagnoses / Procedures Referred By Contac t Referred To Contact XR IMAGING Diagnoses Epigastric pain Bloating Diarrhea, unspecified type Procedures XR ABDOMEN 3V KUB W/OBLIQUES RADIOLOGIC EXAM ABDOMEN 3+ VIEWS Francesco Mandujano MD [address] [place] [address] [place] [address] Referral ID Status Reason Start Date Expiration Date V isits Requested Visits Authorized [id number] Closed Auto-Generate d Referral 09/04/2023 10/03/2024 1 1 [facility] Summary Purpose Family History No Family History Records Found Relationship Condition Age at Onset Recorded Date/T andrew Unknown Family History?Heart Disease Unknown January 08, 2019 6:25pm Family History?No pe rtinent history Unknown January 08, 2019 6:25pm Family History?No pe rtinent history Unknown August 15, 2019 12:09pm Relationship Condition Age at Onset Recorded Date/T andrew Unknown Family History?Heart Disease Unknown January 08, 2019 7:25pm Family History?No pe rtinent history Unknown January 08, 2019 7:25pm Family History?No pe rtinent history Unknown August 15, 2019 1:09pm Relationship Condition Age at Onset Recorded Date/T andrew mother Autoimmune disease Unknown Parkinson's disease Unknown Hypertension Unknown grandfather Malignant neoplasm of colon Unknown father Hypertension Unknown Myocardial infarction 51 grandmother Malignant neoplasm of breast Unknown sister Crohn's disease Unknown Advance Directives No Advanced Directives Records FoundDocuments on File Type Date Recorded Patient [facility] Administrator Expl anation Advance Directive(s) 01/20/2019 12:14 PM Advance Directive Response Recorded Date/ Time Advance Directives No August 15, 2019 12:09pm Living Will No January 18, 2023 2:52pm Power of Acid Blower No January 18 2:52pm Advance Directive Response Recorded Date/ Time Advance Directives No August 15, 2019 1:09pm Living Will No January 18, 2023 3:52pm Power of Acid Blower No January 18 3:52pm Advance Directive Response Recorded Date/ Time Advance Directives No August 15, 2019 1:09pm Advance Directive Response Recorded Date/ Time Advance Directives No June 26, 2025 10:50am Advance Directive Response Recorded Date/ Time Advance Directives No June 26, 2025 10:50am Do you have a Healthcare Power of Acid Blower? No July 17, 2025 11:32am Advance Directive Response Recorded Date/ Time Advance Directives No June 26, 2025 10:50am Do you have a Healthcare Power of Acid Blower? No July 17, 2025 11:32am Do you have a Healthcare Power of Acid Blower? No August 05, 2025 1:29pm Chief Complaint and Reason for Visit Chief Complaint feel like chest is g etting zapped Chief Complaint Admit Date DIABETES FU January 09, 2025 2:42pm Reason for Visit Admit Date Essential hypertension January 09 2:42pm Diabetes January 09, 2025 2:42pm Multiple joint pain January 09, 2025 2:42pm Autoimmune disease January 09, 2025 2:42pm Mixed hyperlipidemia January 09, 2025 2:42pm Anxiety and depression January 09 2:42pm Mitral valve prolapse January 09 2:42pm Celiac disease January 09, 2025 2:42pm Chief Complaint Admit Date DIABETES FU January 09, 2025 2:42pm 3 M FU May 01, 2025 10:4 2am Reason for Visit Admit Date Essential hypertension January 09 2:42pm Diabetes January 09, 2025 2:42pm Multiple joint pain January 09, 2025 2:42pm Autoimmune disease January 09, 2025 2:42pm Mixed hyperlipidemia January 09, 2025 2:42pm Anxiety and depression January 09 2:42pm Mitral valve prolapse January 09 2:42pm Celiac disease January 09, 2025 2:42pm Essential hypertension May 01, 2025 1 0:42am Diabetes May 01, 2025 10:4 2am Multiple joint pain May 01, 2025 10:4 2am Autoimmune disease May 01, 2025 10:4 2am Mixed hyperlipidemia May 01, 2025 10: 42am Anxiety and depression May 01, 2025 1 0:42am Mitral valve prolapse May 01, 2025 10 :42am Celiac disease May 01, 2025 10:4 2am Chief Complaint Admit Date 3 M FU May 01, 2025 10:4 2am Pain June 11, 2025 2:51 pm Reason for Visit Admit Date Essential hypertension May 01, 2025 1 0:42am Diabetes May 01, 2025 10:4 2am Immunization due May 01, 2025 10:4 2am Multiple joint pain May 01, 2025 10:4 2am Autoimmune disease May 01, 2025 10:4 2am Mixed hyperlipidemia May 01, 2025 10: 42am Anxiety and depression May 01, 2025 1 0:42am Screening for breast cancer May 01 10:42am Mitral valve prolapse May 01, 2025 10 :42am Celiac disease May 01, 2025 10:4 2am Pelvic pain June 11, 2025 2:51 pm Pain June 11, 2025 2:51 pm Chief Complaint Admit Date 3 M FU May 01, 2025 10:4 2am Pain June 11, 2025 2:51 pm [facility] May 3:12pm Reason for Visit Admit Date Essential hypertension May 01, 2025 1 0:42am Diabetes May 01, 2025 10:4 2am Immunization due May 01, 2025 10:4 2am Multiple joint pain May 01, 2025 10:4 2am Autoimmune disease May 01, 2025 10:4 2am Mixed hyperlipidemia May 01, 2025 10: 42am Anxiety and depression May 01, 2025 1 0:42am Screening for breast cancer May 01 025 10:42am Mitral valve prolapse May 01, 2025 10 :42am Celiac disease May 01, 2025 10:4 2am Pelvic pain June 11, 2025 2:51 pm Pain June 11, 2025 2:51 pm Acute right hip pain June 12, 2025 3:1 2pm Status post fall June 12, 2025 3:12 pm Chief Complaint Admit Date 3 M FU May 01, 2025 10:4 2am Pain June 11, 2025 2:51 pm [facility] May 3:12pm INT XRAY ORDERS June 12, 2025 4:28 pm Chief Complaint Admit Date 3 M FU May 01, 2025 10:4 2am Pain June 11, 2025 2:51 pm [facility] May 3:12pm INT XRAY ORDERS June 12, 2025 4:28 pm Fell 3 weeks ago... Having Pain June 132024 2:31pm Chief Complaint Admit Date 3 M FU May 01, 2025 10:4 2am Pain June 11, 2025 2:51 pm [facility] May 3:12pm INT XRAY ORDERS June 12, 2025 4:28 pm Fell 3 weeks ago... Having Pain June 132024 2:31pm RLQ PAIN, PELVIC PAIN July 04, 2025 3:31pm Reason for Visit Admit Date Essential hypertension May 01, 2025 1 0:42am Diabetes May 01, 2025 10:4 2am Immunization due May 01, 2025 10:4 2am Multiple joint pain May 01, 2025 10:4 2am Autoimmune disease May 01, 2025 10:4 2am Mixed hyperlipidemia May 01, 2025 10: 42am Anxiety and depression May 01, 2025 1 0:42am Screening for breast cancer May 01, 2 025 10:42am Mitral valve prolapse May 01, 2025 10 :42am Celiac disease May 01, 2025 10:4 2am Pelvic pain June 11, 2025 2:51 pm Pain June 11, 2025 2:51 pm Acute right hip pain June 12, 2025 3:1 2pm Status post fall June 12, 2025 3:12 pm Pelvic pain June 26, 2025 2: 31pm Chief Complaint Admit Date 3 M FU May 01, 2025 10:4 2am Pain June 11, 2025 2:51 pm [facility] - [facility] PAIN May 3:12pm INT XRAY ORDERS June 12, 2025 4:28 pm Fell 3 weeks ago... Having Pain June 132024 2:31pm RLQ PAIN, PELVIC PAIN July 04, 2025 3:31pm abd pain July 17, 2025 11:17am Chief Complaint Admit Date 3 M FU May 01, 2025 10:4 2am Pain June 11, 2025 2:51 pm [facility] - [facility] May 3:12pm INT XRAY ORDERS June 12, 2025 4:28 pm Fell 3 weeks ago... Having Pain June 132024 2:31pm RLQ PAIN, PELVIC PAIN July 04, 2025 3:31pm abd pain July 17, 2025 11:17am 3 M FU July 31, 2025 10:22am Reason for Visit Admit Date Essential hypertension May 01, 2025 1 0:42am Diabetes May 01, 2025 10:4 2am Immunization due May 01, 2025 10:4 2am Multiple joint pain May 01, 2025 10:4 2am Autoimmune disease May 01, 2025 10:4 2am Mixed hyperlipidemia May 01, 2025 10: 42am Anxiety and depression May 01, 2025 1 0:42am Screening for breast cancer May 01 025 10:42am Mitral valve prolapse May 01, 2025 10 :42am Celiac disease May 01, 2025 10:4 2am Pelvic pain June 11, 2025 2:51 pm Pain June 11, 2025 2:51 pm Acute right hip pain June 12, 2025 3:1 2pm Status post fall June 12, 2025 3:12 pm Pelvic pain June 26, 2025 2: 31pm Essential hypertension July 31 025 10:22am Pelvic pain July 31, 2025 10:22am Diabetes July 31, 2025 10:22am Immunization due July 31, 2025 10:22am Multiple joint pain July 31, 2025 10:22am Umbilical abnormality July 31 10:22am Autoimmune disease July 31, 2025 10:22am Mixed hyperlipidemia July 31 10:22am Anxiety and depression July 31 10:22am Mitral valve prolapse July 31 10:22am Celiac disease July 31, 2025 10:22am Chief Complaint Admit Date 3 M FU May 01, 2025 10:4 2am Pain June 11, 2025 2:51 pm [facility] - [facility] PAIN May 3:12pm INT XRAY ORDERS June 12, 2025 4:28 pm Fell 3 weeks ago... Having Pain June 132024 2:31pm RLQ PAIN, PELVIC PAIN July 04, 2025 3:31pm abd pain July 17, 2025 11:17am 3 M FU July 31, 2025 10:22am ABD PAIN August 05, 2025 12:38pm Reason for Referral Specialty Diagnoses / Procedures Referred By Contac t Referred To Contact Nutrition Diagnoses Chronic diarrhea Procedures CONSULT TO NUTRITION THERAPY MEDICAL NUTRITION ASSMT&IVNTJ INDIV EACH AR Louise Espino MD [address] [facility] [place] [address] Referral ID Status Reason Start Date Expiration Date Visits Requested Visits Authorized [id number] Authorized PCP Requested Referral 06/27/2024 06/27/2025 1 4 Specialty Diagnoses / Procedures Referred By Contac t Referred To Contact Gastroenterology Diagnoses Epigastric pain Bloating Diarrhea, unspecified type Nausea Procedures CONSULT TO GASTROENTEROLOGY OFFICE/OUTPATIENT [facility] 60-74 MINUTES Francesco Mandujano MD [address] [place] [address] Referral ID Status Reason Start Date Expiration Date Visits Requested Visits Authorized [id number] Authorized PCP Requested Referral 3 09/03/2024 1 1 Specialty Diagnoses / Procedures Referred By Contac t Referred To Contact CT IMAGING Diagnoses Epigastric pain Bloating Diarrhea, unspecified type Nausea Procedures CT ABD/PEL W IVCON CT ABD & PELVIS W/CONTRAST Francesco Mandujano MD [address] [place] [address] [place] [address] Referral ID Status Reason Start Date Expiration Date Visits Requested Visits Authorized [id number] Additional Clinical Info Needed Auto-Generat ed Referral 3 10/03/2024 1 1 Specialty Diagnoses / Procedures Referred By Contac t Referred To Contact XR IMAGING Diagnoses Epigastric pain Bloating Diarrhea, unspecified type Procedures XR ABDOMEN 3V KUB W/OBLIQUES RADIOLOGIC EXAM ABDOMEN 3+ VIEWS Francesco Mandujano MD [address] [place] [address] [place] [address] Referral ID Status Reason Start Date Expiration Date V isits Requested Visits Authorized [id number] Closed Auto-Generate d Referral 09/04/2023 10/03/2024 1 1 Additional Source Comments INFORMATION SOURCE (unrecogn ized section and content) DATE CREATED AUTHOR 05/03/2018 [facility] DATE CREATED AUTHOR AUTHOR'S ORGANIZ ATION 05/04/2018 [facility] DATE CREATED AUTHOR AUTHOR'S ORGANIZ ATION 08/24/2019 [facility] DATE CREATED AUTHOR AUTHOR'S ORGANIZ ATION 01/28/2023 [facility] DATE CREATED AUTHOR AUTHOR'S ORGANIZ ATION 12/01/2024 [facility] DATE CREATED AUTHOR AUTHOR'S ORGANIZ ATION 09/07/2025 [facility] DATE CREATED AUTHOR AUTHOR'S ORGANIZ ATION 09/20/2025 [facility] DATE CREATED AUTHOR AUTHOR'S ORGANIZ ATION 09/22/2025 [facility] DATE CREATED AUTHOR AUTHOR'S ORGANIZ ATION 09/25/2025 [facility] Source Comments (unrecognize d section and content) In the event this informatio n is protected by the Federal Confidentiality of Alcohol and Drug Abuse Patient Records regulations: The Federal rules restrict any use of the information to criminally investigate or prosecute any alcohol or drug abuse patient.[facility] the event this information is protected by the Federal Confidentiality of Alcohol and Drug Abuse Patient Records regulations: The Federal rules restrict any use of the information to criminally investigate or prosecute any alcohol or drug abuse patient.[facility] CenterIn the event this information is protected by the Federal Confidentiality of Alcohol and Drug Abuse Patient Records regulations: The Federal rules restrict any use of the information to criminally investigate or prosecute any alcohol or drug abuse patient.[facility] CenterIn the event this information is protected by the Federal Confidentiality of Alcohol and Drug Abuse Patient Records regulations: The Federal rules restrict any use of the information to criminally investigate or prosecute any alcohol or drug abuse patient.[facility] CenterIn the event this information is protected by the Federal Confidentiality of Alcohol and Drug Abuse Patient Records regulations: The Federal rules restrict any use of the information to criminally investigate or prosecute any alcohol or drug abuse patient.[facility] Center[facility] the event this information is protected by the Federal Confidentiality of Alcohol and Drug Abuse Patient Records regulations: The Federal rules restrict any use of the information to criminally investigate or prosecute any alcohol or drug abuse patient.[facility] CenterIn the event this information is protected by the Federal Confidentiality of Alcohol and Drug Abuse Patient Records regulations: The Federal rules restrict any use of the information to criminally investigate or prosecute any alcohol or drug abuse patient.[facility] CenterIn the event this information is protected by the Federal Confidentiality of Alcohol and Drug Abuse Patient Records regulations: The Federal rules restrict any use of the information to criminally investigate or prosecute any alcohol or drug abuse patient.[facility] CenterIn the event this information is protected by the Federal Confidentiality of Alcohol and Drug Abuse Patient Records regulations: The Federal rules restrict any use of the information to criminally investigate or prosecute any alcohol or drug abuse patient.[facility] CenterIn the event this information is protected by the Federal Confidentiality of Alcohol and Drug Abuse Patient Records regulations: The Federal rules restrict any use of the information to criminally investigate or prosecute any alcohol or drug abuse patient.[facility] CenterIn the event this information is protected by the Federal Confidentiality of Alcohol and Drug Abuse Patient Records regulations: The Federal rules restrict any use of the information to criminally investigate or prosecute any alcohol or drug abuse patient.[facility] CenterIn the event this information is protected by the Federal Confidentiality of Alcohol and Drug Abuse Patient Records regulations: The Federal rules restrict any use of the information to criminally investigate or prosecute any alcohol or drug abuse patient.[facility] CenterIn the event this information is protected by the Federal Confidentiality of Alcohol and Drug Abuse Patient Records regulations: The Federal rules restrict any use of the information to criminally investigate or prosecute any alcohol or drug abuse patient.[facility] CenterIn the event this information is protected by the Federal Confidentiality of Alcohol and Drug Abuse Patient Records regulations: The Federal rules restrict any use of the information to criminally investigate or prosecute any alcohol or drug abuse patient.[facility] CenterIn the event this information is protected by the Federal Confidentiality of Alcohol and Drug Abuse Patient Records regulations: The Federal rules restrict any use of the information to criminally investigate or prosecute any alcohol or drug abuse patient.[facility] CenterIn the event this information is protected by the Federal Confidentiality of Alcohol and Drug Abuse Patient Records regulations: The Federal rules restrict any use of the information to criminally investigate or prosecute any alcohol or drug abuse patient.[facility] CenterIn the event this information is protected by the Federal Confidentiality of Alcohol and Drug Abuse Patient Records regulations: The Federal rules restrict any use of the information to criminally investigate or prosecute any alcohol or drug abuse patient.[facility] CenterIn the event this information is protected by the Federal Confidentiality of Alcohol and Drug Abuse Patient Records regulations: The Federal rules restrict any use of the information to criminally investigate or prosecute any alcohol or drug abuse patient.[facility] CenterIn the event this information is protected by the Federal Confidentiality of Alcohol and Drug Abuse Patient Records regulations: The Federal rules restrict any use of the information to criminally investigate or prosecute any alcohol or drug abuse patient.[facility] CenterIn the event this information is protected by the Federal Confidentiality of Alcohol and Drug Abuse Patient Records regulations: The Federal rules restrict any use of the information to criminally investigate or prosecute any alcohol or drug abuse patient.[facility] CenterIn the event this information is protected by the Federal Confidentiality of Alcohol and Drug Abuse Patient Records regulations: The Federal rules restrict any use of the information to criminally investigate or prosecute any alcohol or drug abuse patient.[facility] CenterIn the event this information is protected by the Federal Confidentiality of Alcohol and Drug Abuse Patient Records regulations: The Federal rules restrict any use of the information to criminally investigate or prosecute any alcohol or drug abuse patient.[facility] CenterIn the event this information is protected by the Federal Confidentiality of Alcohol and Drug Abuse Patient Records regulations: The Federal rules restrict any use of the information to criminally investigate or prosecute any alcohol or drug abuse patient.[facility] CenterIn the event this information is protected by the Federal Confidentiality of Alcohol and Drug Abuse Patient Records regulations: The Federal rules restrict any use of the information to criminally investigate or prosecute any alcohol or drug abuse patient.[facility] CenterIn the event this information is protected by the Federal Confidentiality of Alcohol and Drug Abuse Patient Records regulations: The Federal rules restrict any use of the information to criminally investigate or prosecute any alcohol or drug abuse patient.[facility] CenterIn the event this information is protected by the Federal Confidentiality of Alcohol and Drug Abuse Patient Records regulations: The Federal rules restrict any use of the information to criminally investigate or prosecute any alcohol or drug abuse patient.[facility] CenterIn the event this information is protected by the Federal Confidentiality of Alcohol and Drug Abuse Patient Records regulations: The Federal rules restrict any use of the information to criminally investigate or prosecute any alcohol or drug abuse patient.[facility] CenterIn the event this information is protected by the Federal Confidentiality of Alcohol and Drug Abuse Patient Records regulations: The Federal rules restrict any use of the information to criminally investigate or prosecute any alcohol or drug abuse patient.[facility] CenterIn the event this information is protected by the Federal Confidentiality of Alcohol and Drug Abuse Patient Records regulations: The Federal rules restrict any use of the information to criminally investigate or prosecute any alcohol or drug abuse patient.[facility] CenterIn the event this information is protected by the Federal Confidentiality of Alcohol and Drug Abuse Patient Records regulations: The Federal rules restrict any use of the information to criminally investigate or prosecute any alcohol or drug abuse patient.[facility] CenterIn the event this information is protected by the Federal Confidentiality of Alcohol and Drug Abuse Patient Records regulations: The Federal rules restrict any use of the information to criminally investigate or prosecute any alcohol or drug abuse patient.[facility] CenterIn the event this information is protected by the Federal Confidentiality of Alcohol and Drug Abuse Patient Records regulations: The Federal rules restrict any use of the information to criminally investigate or prosecute any alcohol or drug abuse patient.[facility] CenterIn the event this information is protected by the Federal Confidentiality of Alcohol and Drug Abuse Patient Records regulations: The Federal rules restrict any use of the information to criminally investigate or prosecute any alcohol or drug abuse patient.[facility] CenterIn the event this information is protected by the Federal Confidentiality of Alcohol and Drug Abuse Patient Records regulations: The Federal rules restrict any use of the information to criminally investigate or prosecute any alcohol or drug abuse patient.[facility] CenterIn the event this information is protected by the Federal Confidentiality of Alcohol and Drug Abuse Patient Records regulations: The Federal rules restrict any use of the information to criminally investigate or prosecute any alcohol or drug abuse patient.[facility] CenterIn the event this information is protected by the Federal Confidentiality of Alcohol and Drug Abuse Patient Records regulations: The Federal rules restrict any use of the information to criminally investigate or prosecute any alcohol or drug abuse patient.[facility] CenterIn the event this information is protected by the Federal Confidentiality of Alcohol and Drug Abuse Patient Records regulations: The Federal rules restrict any use of the information to criminally investigate or prosecute any alcohol or drug abuse patient.[facility] CenterIn the event this information is protected by the Federal Confidentiality of Alcohol and Drug Abuse Patient Records regulations: The Federal rules restrict any use of the information to criminally investigate or prosecute any alcohol or drug abuse patient.[facility] CenterIn the event this information is protected by the Federal Confidentiality of Alcohol and Drug Abuse Patient Records regulations: The Federal rules restrict any use of the information to criminally investigate or prosecute any alcohol or drug abuse patient.[facility] CenterIn the event this information is protected by the Federal Confidentiality of Alcohol and Drug Abuse Patient Records regulations: The Federal rules restrict any use of the information to criminally investigate or prosecute any alcohol or drug abuse patient.[facility] CenterIn the event this information is protected by the Federal Confidentiality of Alcohol and Drug Abuse Patient Records regulations: The Federal rules restrict any use of the information to criminally investigate or prosecute any alcohol or drug abuse patient.[facility] CenterIn the event this information is protected by the Federal Confidentiality of Alcohol and Drug Abuse Patient Records regulations: The Federal rules restrict any use of the information to criminally investigate or prosecute any alcohol or drug abuse patient.[facility] CenterIn the event this information is protected by the Federal Confidentiality of Alcohol and Drug Abuse Patient Records regulations: The Federal rules restrict any use of the information to criminally investigate or prosecute any alcohol or drug abuse patient.[facility] CenterIn the event this information is protected by the Federal Confidentiality of Alcohol and Drug Abuse Patient Records regulations: The Federal rules restrict any use of the information to criminally investigate or prosecute any alcohol or drug abuse patient.[facility] CenterIn the event this information is protected by the Federal Confidentiality of Alcohol and Drug Abuse Patient Records regulations: The Federal rules restrict any use of the information to criminally investigate or prosecute any alcohol or drug abuse patient.[facility] CenterIn the event this information is protected by the Federal Confidentiality of Alcohol and Drug Abuse Patient Records regulations: The Federal rules restrict any use of the information to criminally investigate or prosecute any alcohol or drug abuse patient.[facility] CenterIn the event this information is protected by the Federal Confidentiality of Alcohol and Drug Abuse Patient Records regulations: The Federal rules restrict any use of the information to criminally investigate or prosecute any alcohol or drug abuse patient.[facility] CenterIn the event this information is protected by the Federal Confidentiality of Alcohol and Drug Abuse Patient Records regulations: The Federal rules restrict any use of the information to criminally investigate or prosecute any alcohol or drug abuse patient.[facility] CenterIn the event this information is protected by the Federal Confidentiality of Alcohol and Drug Abuse Patient Records regulations: The Federal rules restrict any use of the information to criminally investigate or prosecute any alcohol or drug abuse patient.[facility] CenterIn the event this information is protected by the Federal Confidentiality of Alcohol and Drug Abuse Patient Records regulations: The Federal rules restrict any use of the information to criminally investigate or prosecute any alcohol or drug abuse patient.[facility] CenterIn the event this information is protected by the Federal Confidentiality of Alcohol and Drug Abuse Patient Records regulations: The Federal rules restrict any use of the information to criminally investigate or prosecute any alcohol or drug abuse patient.[facility] CenterIn the event this information is protected by the Federal Confidentiality of Alcohol and Drug Abuse Patient Records regulations: The Federal rules restrict any use of the information to criminally investigate or prosecute any alcohol or drug abuse patient.[facility] CenterIn the event this information is protected by the Federal Confidentiality of Alcohol and Drug Abuse Patient Records regulations: The Federal rules restrict any use of the information to criminally investigate or prosecute any alcohol or drug abuse patient.[facility] CenterIn the event this information is protected by the Federal Confidentiality of Alcohol and Drug Abuse Patient Records regulations: The Federal rules restrict any use of the information to criminally investigate or prosecute any alcohol or drug abuse patient.[facility] CenterIn the event this information is protected by the Federal Confidentiality of Alcohol and Drug Abuse Patient Records regulations: The Federal rules restrict any use of the information to criminally investigate or prosecute any alcohol or drug abuse patient.[facility] CenterIn the event this information is protected by the Federal Confidentiality of Alcohol and Drug Abuse Patient Records regulations: The Federal rules restrict any use of the information to criminally investigate or prosecute any alcohol or drug abuse patient.[facility] CenterIn the event this information is protected by the Federal Confidentiality of Alcohol and Drug Abuse Patient Records regulations: The Federal rules restrict any use of the information to criminally investigate or prosecute any alcohol or drug abuse patient.[facility] CenterIn the event this information is protected by the Federal Confidentiality of Alcohol and Drug Abuse Patient Records regulations: The Federal rules restrict any use of the information to criminally investigate or prosecute any alcohol or drug abuse patient.[facility] CenterIn the event this information is protected by the Federal Confidentiality of Alcohol and Drug Abuse Patient Records regulations: The Federal rules restrict any use of the information to criminally investigate or prosecute any alcohol or drug abuse patient.[facility] CenterIn the event this information is protected by the Federal Confidentiality of Alcohol and Drug Abuse Patient Records regulations: The Federal rules restrict any use of the information to criminally investigate or prosecute any alcohol or drug abuse patient.[facility] Reason for Visit (unrecogniz ed section and content) Reason Onset Date Comments Refill Request 01/30/2022 Reason Comments Physical Reason Comments Release Of Medical Records Reason Comments F/U 6 months Reason Comments Results Reason Comments Insurance Authorization Reason Onset Date Comments Refill Request 12/15/2022 Reason Comments outside reports Reason Comments Appointment Reason Comments ED Follow-up Reason Comments Outside Labs Results Reason Comments Opened In Error Reason Onset Date Comments Refill Request 03/09/2023 Reason Comments Dental Problem broken tooth bottom right side x few months Reason Comments Diarrhea Mid upper abd pain x 3 weeks Reason Comments Recheck Follow up from [facility] are- continues with diarrhea that occurs after eating; stomach pain; has been consistent x3 weeks Reason Comments Pain, Abdominal Reason Comments Radiology CT Specialty Diagnoses / Procedures Referred By Contac t Referred To Contact CT IMAGING Diagnoses Epigastric pain Bloating Diarrhea, unspecified type Nausea Procedures CT ABD/PEL W IVCON CT ABD & PELVIS W/CONTRAST Francesco Mandujano MD [address] [place] [address] [place] [address] Referral ID Status Reason Start Date Expiration Date V isits Requested Visits Authorized [id number] Closed Auto-Generat ed Referral Patient Cleared - Admin/Chairm an/Director advise to proceed or did not respond 09/05/2023 10/05/2023 2 2 Reason Onset Date Comments Refill Request 09/25/2023 Reason Onset Date Comments Refill Request 10/10/2023 Reason Onset Date Comments Refill Request 01/05/2024 Reason Comments Abdominal Pain Gas Diarrhea Reason Comments approval to hold trulicity Reason Onset Date Comments Refill Request 01/26/2024 Reason Onset Date Comments Refill Request 02/16/2024 Reason Onset Date Comments Refill Request 03/03/2024 Reason Comments Shingles Reason Comments Letter Request Reason Onset Date Comments Appointment Request 04/11/2024 Reason Comments Rash Reason Comments Nausea Reason Comments Procedure Follow Up EGD/Colonoscopy/lab review Reason Comments Nutrition Assessment Patient Education Specialty Diagnoses / Procedures Referred By Contac t Referred To Contact Nutrition Diagnoses Chronic diarrhea Procedures CONSULT TO NUTRITION THERAPY MEDICAL NUTRITION ASSMT&IVNTJ INDIV EACH 15 AR Louise Espino MD [address] [place] [address] Referral ID Status Reason Start Date Expiration Date Visits Requested Visits Authorized [id number] Authorized PCP Requested Referral 06/27/2024 06/27/2025 1 4 Reason Comments Refill Request Reason Comments dental abscess Reason Comments Chest Congestion head congestion, cou gh x 8-9 days Reason Comments New Patient Rheumatoid Arthritis Specialty Diagnoses / Procedures Referred By Khari louie Referred To Contact Rheumatology Diagnoses Systemic involvement of connective tissue, unspecified Esteban Ware MD [address] [place] [address] [facility] [address] [place] [address] Referral ID Status Reason Start Date Expiration Date V isits Requested Visits Authorized [id number] New Request 05/10/2024 06/04/2025 1 1 Reason Comments Pain Follow-up Reason Onset Date Comments Insurance 04/14/2025 Reason Comments Pelvic Pain right side and fell this am while walking dog Reason Onset Date Comments Insurance 07/15/2025 Reason Onset Date Comments Refill Request 07/21/2025 Reason Onset Date Comments Insurance 08/15/2025 Care Teams (unrecognized sec tion and content) Commercial Credit Portfolio Manager Relationship Specialty Start Date End Date Francesco Mandujano MD [address] [place], [place] [id number] PCP - General Family Practice 09/13/13 Commercial Credit Portfolio Manager Relationship Specialty Start Date End Date Francesco Mandujano MD [address] [place], [place] [id number] PCP - General Family Practice 09/13/13 Commercial Credit Portfolio Manager Relationship Specialty Start Date End Date Francesco Mandujano MD [address] [place] [address] PCP - General Family Practice 09/13/13 Commercial Credit Portfolio Manager Relationship Specialty Start Date End Date Francesco Mandujano MD [address] [place] [address] PCP - General Family Medicine 09/13/13 Commercial Credit Portfolio Manager Relationship Specialty Start Date End Date Francesco Mandujano MD [facility] [place] [address] PCP - General Family Medicine 09/13/13 Commercial Credit Portfolio Manager Relationship Specialty Start Date End Date Francesco Mandujano MD [facility] [place] [address] PCP - General Family Medicine 09/13/13 Team Status: Active Member Role Status Dates Dr. Francesco Mandujano MD Family Provider Active Dr. Francesco Mandujano MD Primary Care Provider Active Team Status: Inactive Member Role Status Dates Dr. Francesco Mandujano MD Primary Care Provider Active Dr. Charlie Mills DO Emergency Provider Active [employer] Portfolio Manager Relationship Specialty Start Date End Date Francesco Mandujano MD [address] [place] [address] PCP - General Family Medicine 09/13/13 Commercial Credit Portfolio Manager Relationship Specialty Start Date End Date Francesco Mandujano MD [address] [place] [address] PCP - General Family Medicine 09/13/13 Commercial Credit Portfolio Manager Relationship Specialty Start Date End Date Francesco Mandujano MD [address] [place] [address] PCP - General Family Medicine 09/13/13 Commercial Credit Portfolio Manager Relationship Specialty Start Date End Date Francesco Mandujano MD [facility] [place] [address] PCP - General Family Medicine 09/13/13 Commercial Credit Portfolio Manager Relationship Specialty Start Date End Date Francesco Mandujano MD [address] [place] [address] PCP - General Family Medicine 09/13/13 Team Status: Inactive Member Role Status Dates Dr. Francesco Mandujano MD Primary Care Provider Active Dr. Charlie Mills DO Attending Provider, Radha muniz Active Team Status: Inactive Member Role Status Dates Dr. Francesco Mandujano MD Primary Care Provider, [facility] Provider Active Commercial Credit Portfolio Manager Relationship Specialty Start Date End Date Francesco Mandujano MD [address] [place] [address] PCP - General Family Medicine 09/13/13 Commercial Credit Portfolio Manager Relationship Specialty Start Date End Date Francesco Mandujano MD [address] [facility] [place] [address] PCP - General Family Medicine 09/13/13 Commercial Credit Portfolio Manager Relationship Specialty Start Date End Date Francesco Mandujano MD [address] [place] [address] PCP - General Family Medicine 09/13/13 Commercial Credit Portfolio Manager Relationship Specialty Start Date End Date Francesco Mandujano MD [address] [facility] [place] [address] PCP - General Family Medicine 09/13/13 Commercial Credit Portfolio Manager Relationship Specialty Start Date End Date Francesco Mandujano MD [address] [place] [address] PCP - General Family Medicine 09/13/13 Commercial Credit Portfolio Manager Relationship Specialty Start Date End Date Francesco Mandujano MD [address] [place] [address] PCP - General Family Medicine 09/13/13 Commercial Credit Portfolio Manager Relationship Specialty Start Date End Date Francesco Mandujano MD [address] [place] [address] PCP - General Family Medicine 09/13/13 Commercial Credit Portfolio Manager Relationship Specialty Start Date End Date Francesco Mandujano MD [address] [place] [address] PCP - General Family Medicine 09/13/13 Commercial Credit Portfolio Manager Relationship Specialty Start Date End Date Francesco Mandujano MD [address] [place] [address] PCP - General Family Medicine 09/13/13 Commercial Credit Portfolio Manager Relationship Specialty Start Date End Date Francesco Mandujano MD [address] [place] [address] PCP - General Family Medicine 09/13/13 Commercial Credit Portfolio Manager Relationship Specialty Start Date End Date Francesco Mandujano MD [address] [place] [address] PCP - General Family Medicine 09/13/13 Commercial Credit Portfolio Manager Relationship Specialty Start Date End Date Francesco Mandujano MD [address] [place] [address] PCP - General Family Medicine 09/13/13 Commercial Credit Portfolio Manager Relationship Specialty Start Date End Date Francesco Mandujano MD [address] [place] [address] PCP - General Family Medicine 09/13/13 Commercial Credit Portfolio Manager Relationship Specialty Start Date End Date Francesco Mandujano MD [address] [place] [address] PCP - General Family Medicine 09/13/13 Commercial Credit Portfolio Manager Relationship Specialty Start Date End Date Francesco Mandujano MD [address] [place] [address] PCP - General Family Medicine 09/13/13 Commercial Credit Portfolio Manager Relationship Specialty Start Date End Date Francesco Mandujano MD [address] [place] [address] PCP - General Family Medicine 09/13/13 Commercial Credit Portfolio Manager Relationship Specialty Start Date End Date Francesco Mandujano MD [address] [place] [address] PCP - General Family Medicine 09/13/13 Commercial Credit Portfolio Manager Relationship Specialty Start Date End Date Francesco Mandujano MD [facility] [place] [address] PCP - General Family Medicine 09/13/13 Commercial Credit Portfolio Manager Relationship Specialty Start Date End Date Francesco Mandujano MD [address] [place] [address] PCP - General Family Medicine 09/13/13 Commercial Credit Portfolio Manager Relationship Specialty Start Date End Date Francesco Mandujano MD [address] [place] [address] PCP - General Family Medicine 09/13/13 Commercial Credit Portfolio Manager Relationship Specialty Start Date End Date Francesco Mandujano MD [address] [facility] [facility] [address] [place], [place] [id number] PCP - General 06/18/15 Commercial Credit Portfolio Manager Relationship Specialty Start Date End Date Francesco Mandujano MD [address] [place] [address] PCP - General Family Medicine 09/13/13 Commercial Credit Portfolio Manager Relationship Specialty Start Date End Date Francesco Mandujano MD [address] [place], [place] [address] PCP - General Family Medicine 09/13/13 Commercial Credit Portfolio Manager Relationship Specialty Start Date End Date Francesco Mandujano MD [address] [place] [address] [id number] PCP - General Family Medicine 09/13/13 Commercial Credit Portfolio Manager Relationship Specialty Start Date End Date Francesco Mandujano MD [address] [place] [id number] PCP - General Family Medicine 09/13/13 Commercial Credit Portfolio Manager Relationship Specialty Start Date End Date Francesco Mandujano MD [address] [place] [id number] PCP - General Family Medicine 09/13/13 Denise Preciado APRN.CNP [address] [place] [id number] Junior Data Analyst Family Medicine 10/19/24 Maral Moreno PA-C [address] [place] [id number] Junior Data Analyst Family Medicine 10/19/24 Commercial Credit Portfolio Manager Relationship Specialty Start Date End Date Francesco Mandujano MD [address] [place] [address] PCP - General Family Medicine 03/06/19 Commercial Credit Portfolio Manager Relationship Specialty Start Date End Date Francesco Mandujano MD [address] [place] [address] PCP - General Family Medicine 09/13/13 Denise Preciado, LEAD INFRASTRUCTURE ARCHITECT.MAT MAN [address] [place] [address] Junior Data Analyst Family Medicine 10/19/24 Maral Morneo PA-C [address] [place] [address] Junior Data Analyst Family Medicine 10/19/24 Commercial Credit Portfolio Manager Relationship Specialty Start Date End Date Francesco Mandujano MD [address] [place] [address] PCP - General Family Medicine 09/13/13 Denise Preciado, LEAD INFRASTRUCTURE ARCHITECT.MAT MAN [address] [place] [id number] Junior Data Analyst Family Medicine 10/19/24 Maral Moreno PA-C [address] [place] [address] Junior Data Analyst Family Medicine 10/19/24 Commercial Credit Portfolio Manager Relationship Specialty Start Date End Date Francesco Mandujano MD [address] [place] [address] PCP - General Family Medicine 09/13/13 Denise Preciado, LEAD INFRASTRUCTURE ARCHITECT.MAT MAN [address] [place] [address] Junior Data Analyst Family Medicine 10/19/24 Maral Moreno PA-C [address] [place] [address] Junior Data Analyst Family Medicine 10/19/24 Commercial Credit Portfolio Manager Relationship Specialty Start Date End Date Francesco Mandujano MD [address] [place] [address] PCP - General Family Medicine 09/13/13 Denise Preciado APRN.CNP [address] [place] [address] Junior Data Analyst Family Medicine 10/19/24 Maral Moreno PA-C [address] [place] [address] Junior Data Analyst Family [facility] 10/19/24 Team Status: Active Member Role Status Dates Dr. Esteban Ware MD Primary Care Provider Active Team Status: Inactive Member Role Status Dates Dr. Esteban Ware MD Primary Care Provider Active Start: January 09, 2025 End: January 09, 2025 Dr. Esteban Ware MD Attending Provider Active Start: January 09, 2025 End: January 09, 2025 Dr. Esteban Ware MD Referring Provider Active Start: January 09, 2025 End: January 09, 2025 Team Status: Inactive Member Role Status Dates Dr. Esteban Ware MD Primary Care Provider Active Start: January 15, 2025 End: January 15, 2025 Dr. Esteban Ware MD Attending Provider Active Start: January 15, 2025 End: January 15, 2025 Dr. Esteban Ware MD Referring Provider Active Start: January 15, 2025 End: January 15, 2025 Team Status: Inactive Member Role Status Dates Dr. Esteban Ware MD Primary Care Provider Active Start: February 21, 2025 End: February 21, 2025 Dr. Meir Hamilton MD Attending Provider Active Start: February 21, 2025 End: February 21, 2025 Dr. Meir Hamilton MD Referring Provider Active Start: February 21, 2025 End: February 21, 2025 Commercial Credit Portfolio Manager Relationship Specialty Start Date End Date Chin Lewis DMD, MD [address] [place] [address] Physician Oral & Maxillofacial Surgery 10/19/24 Commercial Credit Portfolio Manager Relationship Specialty Start Date End Date Francesco Mandujano MD [address] [place] [address] PCP - General Family Medicine 02/17/25 Maral Moreno PA-C [address] [place] [address] Junior Data Analyst Family Medicine 10/19/24 Commercial Credit Portfolio Manager Relationship Specialty Start Date End Date Francesco Mandujano MD [address] [place] [address] PCP - General Family Medicine 03/06/19 Commercial Credit Portfolio Manager Relationship Specialty Start Date End Date Francesco Mandujano MD [address] [place] [address] PCP - General Family Medicine 03/06/19 Team Status: Active Member Role Status Dates Dr. Esteban Ware MD Primary Care Provider Active Start: March 18, 2025 DHEERAJ OZUNA Attending Provider Active Start: March 18, 2025 Team Status: Inactive Member Role Status Dates Dr. Esteban Ware MD Primary Care Provider Active Start: May 01, 2025 End: May 01, 2025 Dr. Esteban Ware MD Attending Provider Active Start: May 01, 2025 End: May 01, 2025 Dr. Esteban Ware MD Referring Provider Active Start: May 01, 2025 End: May 01, 2025 Commercial Credit Portfolio Manager Relationship Specialty Start Date End Date Francesco Mandujano MD [address] [id number] PCP - General Family Medicine 02/17/25 Denise Preciado APRN.MAT MAN [address] [place], [place] [id number] Junior Data Analyst [facility] 04/14/25 Maral Moreno PA-C [address] [place] [address] [facility] 04/14/25 Team Status: Active Member Role/Relationship Status Dates Dr. Esteban Ware MD Primary Care Provider Active Team Status: Inactive Member Role/Relationship Status Dates Dr. Esteban Ware MD Primary Care Provider Active Start: February 21, 2025 End: February 21, 2025 Dr. Meir Hamilton MD Attending Provider Active Start: February 21, 2025 End: February 21, 2025 Dr. Meir Hamilton MD Referring Provider Active Start: February 21, 2025 End: February 21, 2025 Team Status: Active Member Role/Relationship Status Dates Dr. Esteban Ware MD Primary Care Provider Active Start: March 18, 2025 DHEERAJ OZUNA Attending Provider Active Start: March 18, 2025 Team Status: Inactive Member Role/Relationship Status Dates Dr. Esteban Ware MD Primary Care Provider Active Start: May 01, 2025 End: May 01, 2025 Dr. Esteban Ware MD Attending Provider Active Start: May 01, 2025 End: May 01, 2025 Dr. Esteban Ware MD Referring Provider Active Start: May 01, 2025 End: May 01, 2025 Team Status: Inactive Member Role/Relationship Status Dates Dr. Esteban Ware MD Primary Care Provider Active Start: June 11, 2025 End: June 11, 2025 RICARDO Sorto Attending Provider Active Sta rt: June 11, 2025 End: June 11, 2025 Team Status: Inactive Member Role/Relationship Status Dates Dr. Esteban Ware MD Primary Care Provider Active Start: June 12, 2025 End: June 12, 2025 Dr. Esteban Ware MD Referring Provider Active Start: June 12, 2025 End: June 12, 2025 Ghislaine Ungerer , ENTRY LEVEL MANAGEMENT-C Attending Provider Active Start: June 12, 2025 End: June 12, 2025 Team Status: Inactive Member Role/Relationship Status Dates Dr. Esteban Ware MD Primary Care Provider Active Start: June 12, 2025 End: June 12, 2025 Ghislaine Rodriguez ENTRY LEVEL MANAGEMENT-C Attending Provider Active Start: June 12, 2025 End: June 12, 2025 Ghislaine Rodriguez ENTRY LEVEL MANAGEMENT-C Referring Provider Active Start: June 12, 2025 End: June 12, 2025 Team Status: Active Member Role/Relationship Status Dates Dr. Esteban Ware MD Primary Care Provider Active Start: March 18, 2025 DHEERAJ OZUNA Attending Provider Active Start: March 18, 2025 Team Status: Inactive Member Role/Relationship Status Dates Dr. Esteban Ware MD Primary Care Provider Active Start: May 01, 2025 End: May 01, 2025 Dr. Esteban Ware MD Attending Provider Active Start: May 01, 2025 End: May 01, 2025 Dr. Esteban Ware MD Referring Provider Active Start: May 01, 2025 End: May 01, 2025 Team Status: Inactive Member Role/Relationship Status Dates Dr. Esteban Ware MD Primary Care Provider Active Start: June 11, 2025 End: June 11, 2025 RICARDO Sorto Attending Provider Active Sta rt: June 11, 2025 End: June 11, 2025 Team Status: Inactive Member Role/Relationship Status Dates Dr. Esteban aWre MD Primary Care Provider Active Start: June 12, 2025 End: June 12, 2025 Dr. Esteban Ware MD Referring Provider Active Start: June 12, 2025 End: June 12, 2025 Ghislaine Rodriguez ENTRY LEVEL MANAGEMENT-C Attending Provider Active Start: June 12, 2025 End: June 12, 2025 Team Status: Inactive Member Role/Relationship Status Dates Dr. Esteban Ware MD Primary Care Provider Active Start: June 12, 2025 End: June 12, 2025 Ghislaine Rodriguez ENTRY LEVEL MANAGEMENT-C Attending Provider Active Start: June 12, 2025 End: June 12, 2025 Ghislaine Rodriguez ENTRY LEVEL MANAGEMENT-C Referring Provider Active Start: June 12, 2025 End: June 12, 2025 Team Status: Inactive Member Role/Relationship Status Dates Dr. Esteban Ware MD Primary Care Provider Active Start: June 26, 2025 End: June 26, 2025 Dr. Esteban Ware MD Referring Provider Active Start: June 26, 2025 End: June 26, 2025 Ghislaine Rodriguez ENTRY LEVEL MANAGEMENT-C Attending Provider Active Start: June 26, 2025 End: June 26, 2025 Team Status: Inactive Member Role/Relationship Status Dates Dr. Esteban Ware MD Primary Care Provider Active Start: July 04, 2025 End: July 04, 2025 Ghislaine Rodriguez ENTRY LEVEL MANAGEMENT-C Attending Provider Active Start: July 04, 2025 End: July 04, 2025 Ghislaine Rodriguez ENTRY LEVEL MANAGEMENT-C Referring Provider Active Start: July 04, 2025 End: July 04, 2025 Team Status: Inactive Member Role/Relationship Status Dates Dr. Esteban Ware MD Primary Care Provider Active Start: May 01, 2025 End: May 01, 2025 Dr. Esteban Ware MD Attending Provider Active Start: May 01, 2025 End: May 01, 2025 Dr. Esteban Ware MD Referring Provider Active Start: May 01, 2025 End: May 01, 2025 Team Status: Inactive Member Role/Relationship Status Dates Dr. Esteban Ware MD Primary Care Provider Active Start: June 11, 2025 End: June 11, 2025 RICARDO Sorto Attending Provider Active Sta rt: June 11, 2025 End: June 11, 2025 Team Status: Inactive Member Role/Relationship Status Dates Dr. Esteban Ware MD Primary Care Provider Active Start: June 12, 2025 End: June 12, 2025 Dr. Esteban Ware MD Referring Provider Active Start: June 12, 2025 End: June 12, 2025 Ghislaine Rodriguez ENTRY LEVEL MANAGEMENT-C Attending Provider Active Start: June 12, 2025 End: June 12, 2025 Team Status: Inactive Member Role/Relationship Status Dates Dr. Esteban Ware MD Primary Care Provider Active Start: June 12, 2025 End: June 12, 2025 Ghislaine Rodriguez ENTRY LEVEL MANAGEMENT-C Attending Provider Active Start: June 12, 2025 End: June 12, 2025 Ghislaine Rodriguez , ENTRY LEVEL MANAGEMENT-C Referring Provider Active Start: June 12, 2025 End: June 12, 2025 Team Status: Inactive Member Role/Relationship Status Dates Dr. Esteban Ware MD Primary Care Provider Active Start: June 26, 2025 End: June 26, 2025 Dr. Esteban Ware MD Referring Provider Active Start: June 26, 2025 End: June 26, 2025 Ghislaine Rodriguez ENTRY LEVEL MANAGEMENT-C Attending Provider Active Start: June 26, 2025 End: June 26, 2025 Team Status: Inactive Member Role/Relationship Status Dates Dr. Esteban Ware MD Primary Care Provider Active Start: July 04, 2025 End: July 04, 2025 Ghislaine Rodriguez , ENTRY LEVEL MANAGEMENT-C Attending Provider Active Start: July 04, 2025 End: July 04, 2025 Ghislaine Rodriguez , ENTRY LEVEL MANAGEMENT-C Referring Provider Active Start: July 04, 2025 End: July 04, 2025 Team Status: Inactive Member Role/Relationship Status Dates Dr. Esteban Ware MD Primary Care Provider Active Start: July 17, 2025 End: July 17, 2025 Dr. Joey Hernández DO Emergency Provider Active S tart: July 17, 2025 End: July 17, 2025 Commercial Credit Portfolio Manager Relationship Specialty Start Date End Date Francesco Mandujano MD [address] [place] [address] PCP - General Family Medicine 03/06/19 Commercial Credit Portfolio Manager Relationship Specialty Start Date End Date Francesco Mandujano MD [address] [place] [address] PCP - General Family Medicine 02/17/25 Denise Preciado APRN.STEFANIE [address] [place] [address] Junior Data Analyst Family [facility] 04/14/25 Maral Moreno PA-C [address] [place] [address] Junior Data Analyst [facility] 04/14/25 Team Status: Active Member Role/Relationship Status Dates Dr. Esteban Ware MD Primary care physician Active Team Status: Inactive Member Role/Relationship Status Dates Dr. Esteban Ware MD Primary care physician Active Start: May 01, 2025 End: May 01, 2025 Dr. Esteban Ware MD Attending physician Active Start: May 01, 2025 End: May 01, 2025 Dr. Esteban Ware MD Referring Provider Active Start: May 01, 2025 End: May 01, 2025 Team Status: Inactive Member Role/Relationship Status Dates Dr. Esteban Ware MD Primary care physician Active Start: June 11, 2025 End: June 11, 2025 RICARDO Sorto Attending physician Active St art: June 11, 2025 End: June 11, 2025 Team Status: Inactive Member Role/Relationship Status Dates Dr. Esteban Ware MD Primary care physician Active Start: June 12, 2025 End: June 12, 2025 Dr. Esteban Ware MD Referring Provider Active Start: June 12, 2025 End: June 12, 2025 ТАТЬЯНА Christian Attending physician Active Start: June 12, 2025 End: June 12, 2025 Team Status: Inactive Member Role/Relationship Status Dates Dr. Esteban Ware MD Primary care physician Active Start: June 12, 2025 End: June 12, 2025 ТАТЬЯНА Christian Attending physician Active Start: June 12, 2025 End: June 12, 2025 ТАТЬЯНА Christian Referring Provider Active Start: June 12, 2025 End: June 12, 2025 Team Status: Inactive Member Role/Relationship Status Dates Dr. Esteban Ware MD Primary care physician Active Start: June 26, 2025 End: June 26, 2025 Dr. Esteban Ware MD Referring Provider Active Start: June 26, 2025 End: June 26, 2025 ТАТЬЯНА Christian Attending physician Active Start: June 26, 2025 End: June 26, 2025 Team Status: Inactive Member Role/Relationship Status Dates Dr. Esteban Ware MD Primary care physician Active Start: July 04, 2025 End: July 04, 2025 ТАТЬЯНА Christian Attending physician Active Start: July 04, 2025 End: July 04, 2025 ТАТЬЯНА Christian Referring Provider Active Start: July 04, 2025 End: July 04, 2025 Team Status: Inactive Member Role/Relationship Status Dates Dr. Esteban Ware MD Primary care physician Active Start: July 17, 2025 End: July 17, 2025 Dr. Joey Hernández DO Attending physician Active Start: July 17, 2025 End: July 17, 2025 Dr. Joey Hernández DO Emergency Departmen t Physician Active Start: July 17, 2025 End: July 17, 2025 Team Status: Inactive Member Role/Relationship Status Dates Dr. Esteban Ware MD Primary care physician Active Start: July 31, 2025 End: July 31, 2025 Dr. Esteban Ware MD Attending physician Active Start: July 31, 2025 End: July 31, 2025 Dr. Esteban Ware MD Referring Provider Active Start: July 31, 2025 End: July 31, 2025 Team Status: Inactive Member Role/Relationship Status Dates Dr. Esteban Ware MD Primary care physician Active Start: August 05, 2025 End: August 05, 2025 Dr. Joey Hernández DO Attending physician Active Start: August 05, 2025 End: August 05, 2025 Dr. Joey Hernández DO Emergency Departmen t Physician Active Start: August 05, 2025 End: August 05, 2025 Team Status: Active Member Role/Relationship Status Dates Dr. 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 Start Date End Date Francesco Mandujano MD [address] [place] [address] PCP - General Family Medicine 03/06/19 Goals (unrecognized section and content) Goals may be documented in a n alternate section No data available for this sectionGoals may be documented in an alternate sectionGoals may be documented in an alternate sectionGoals may be documented in an alternate sectionGoals may be documented in an alternate section No data available for this sectionGoals may be documented in an alternate sectionGoals may be documented in an alternate sectionGoals may be documented in an alternate sectionGoals may be documented in an alternate sectionGoals may be documented in an alternate sectionGoals may be documented in an alternate sectionGoals may be documented in an alternate sectionGoals may be documented in an alternate section No data available for this section Care Team (unrecognized sect ion and content) Care Team Personnel Name: FRANCESCO MANDUJANO MD Member Role: Primary Care Physician Address: Address: [address] [place], [place] [address] Name: MANN Bolaños Position: AO RN Member Role: ED RN Name: BETO JAMISON DO Position: Resident Member Role: Resident Address: Address: [address] [id number] Name: Contreras Betancur RN Position: AO RN Member Role: ED RN Name: JOSY RIGGINS MD Position: ED Physician Member Role: ED Physician Address: Address: [facility] [address] [place], [place] [id number] Care Team Related Persons Name: DIOMEDES DIAZ Address: Home [address] [place] [address] [place] Name: DIOMEDES DIAZ Address: Home [address] [place] [address] [place] Name: DIOMEDES DIAZ Address: [place] [address] [place] [address] US FOR RECORDS PERTAINING TO PATIENTS WHO ARE OR HAVE BEEN ENROLLED IN A CHEMICAL DEPENDENCY/SUBSTANCEABUSE PROGRAM, SOME INFORMATION MAY BE OMITTED. This clinical summary was aggregated from multiple sources. Caution should be exercised in using it in the provision of clinical care. This summary normalizes information from multiple sources, and as a consequence, information in this document may materially change the coding, format and clinical context of patient data. In addition, data may be omitted in some cases. CLINICAL DECISIONS SHOULD BE BASED ON THE PRIMARY CLINICAL RECORDS. [employer] [facility] provides no warranty or guarantee of the accuracy or completeness of information in this document.
[2025-10-12 17:05] LABS: Anion Gap 13 (5-15); BUN 7 mg/dL (4-19); BUN/Creat Ratio 13.3 RATIO (10-20); Calcium,Total 9.1 mg/dL (7.6-11.0); Carbon Dioxide 19.9 mmol/L (21.0-32.0); Chloride 101 mmol/L (98-108); Estimated Creatinine Clearance 182.32 ml/min (50-250); Glucose 136 mg/dL (70-99); Potassium 3.8 mmol/L (3.3-5.1)
[2025-10-12 17:08] LABS: Color, Urine Yellow (Yellow); Glucose, Dipstick 1000 mg/dl (Normal); Ketone-Dipstick Negative (Negative); Leukocyte Esterase-Dipstick Negative /ul (Negative); Nitrite-Dipstick Negative (Negative); Occult Blood-Urine Negative /ul (Negative); Protein-Dipstick 15 mg/dl (Negative); Specific Gravity, Urine 1.020 (1.002-1.030); Urine Bilirubin Dipstick Negative (Negative)
[2025-10-12 17:16] LABS: Red Blood Cells-Urine 0-5 SEEN /hpf (0-5); Squamous Epithelial Cells - UA 5-10 SEEN /hpf (5-10); Yeast-Urine RARE /hpf (None Seen)
[2025-10-12 17:17] LABS: Mucous, Urine 1+ /hpf (<or=2+)
[2025-10-12 17:56] VITALS: BP 114/71; PULSE 83; RESP 16; TEMP 36.9; O2SAT 97
== END 2025-10-12 18:05 | disposition home or self-care (01) ==
PROVIDERS: Emergency Provider Emergency Medicine; PCP Internal Medicine; Visit Provider Emergency Medicine
DX: N30.00 Acute cystitis without hematuria (principal); E11.9 Type 2 diabetes mellitus without complications; Z90.49 Acquired absence of other specified parts of digestive tract; E78.5 Hyperlipidemia, unspecified; I10 Essential (primary) hypertension; Z87.891 Personal history of nicotine dependence; N80.9 Endometriosis, unspecified; G89.29 Other chronic pain; F32.A Depression, unspecified; R10.31 Right lower quadrant pain
CPT/HCPCS: 80048; 81001; 85025; 87086; 87088; 96374; 96376; 99283; A4216